=== PATIENT | male | born 1965 | race Caucasian/White ===

== ENCOUNTER 2021-06-21 15:30 | Outpatient (CLI) | payer OTHER, SELFPAY ==
--- NOTE | ~2021-06-21 | US_ITS ---
EXAMINATION: US carotid duplex BI DATE: 06/21/2021 15:57 INDICATION: Dizziness and giddiness. TECHNIQUE: Grayscale, color Doppler, and pulsed Doppler images of the cervical carotid arteries were obtained. The degree of vessel stenosis is placed in one of the following categories: normal, <50%, 5 0-69%, >=70% but less than near-occlusion, near-occlusion, or total occlusion. Note that percent sten osis relative to normal distal artery lumen diameter is indirectly measured from velocity measurement s as described by Justice, et al. Radiology 2003; 229:340-346. COMPARISON: None. FINDINGS: RIGHT: The right common carotid artery (CCA) peak systolic velocity (PSV) is 55 cm/s. The right internal car otid artery (ICA) PSV is 46 cm/s. The right ICA end-diastolic velocity (EDV) is 16 cm/s. The right IC A/CCA PSV ratio is 0.8. Grayscale and color Doppler images yield an estimate of <50% diameter reducti on from plaque in the ICA. The external carotid artery (ECA) PSV is 94 cm/s. There is antegrade flow in the right vertebral artery. LEFT: The left CCA PSV is 71 cm/s. The left ICA PSV is 54 cm/s. The left ICA EDV is 20 cm/s. The left ICA/C CA PSV ratio is 0.8. Grayscale and color Doppler images yield an estimate of <50% diameter reduction from plaque in the ICA. The ECA PSV is 78 cm/s. There is antegrade flow in the left vertebral artery. IMPRESSION: 1. <50% stenosis in the right internal carotid artery. 2. <50% stenosis in the left internal carotid artery. Reviewed, dictated and finalized at location . PUMP INSTALLER
== END 2021-06-21 15:31 | disposition home or self-care (01) ==
LOC: ANHIMG 15:35
PROVIDERS: PCP Internal Medicine; Visit Provider Family Medicine
DX: I65.23 Occlusion and stenosis of bilateral carotid arteries (principal)
CPT/HCPCS: 93880

== ENCOUNTER 2021-10-01 08:41 | Outpatient (CLI) | payer OTHER, SELFPAY ==
--- NOTE | ~2021-10-01 | CT_ITS ---
EXAMINATION:CT lung screening DATE: 10/01/2021 08:59 INDICATION: Tobacco use. Current smoker with 40 pack year history. TECHNIQUE: Computed tomography (CT) of the chest was performed without intravenous contrast. Automate d exposure control and iterative reconstruction technique were employed. The dose-length product (DLP ) was 250.19 mGy-cm. COMPARISON: None. FINDINGS: There is mild emphysema. There is mild scarring at the lung apices. There is a 2 mm nodule in right middle lobe. Calcified right lung nodules are consistent with old granulomatous disease. No pleural effusion. The heart size is normal. There are coronary artery calcifications. No pericardial effusion. There is an intramuscular lipoma in the right rotator cuff. There are changes of cholecyste ctomy. There is diffuse hepatic steatosis. There is mild thoracic spondylosis. There is mild chronic height loss of multiple vertebral bodies. IMPRESSION: 1. Lung-RADS category 2: Benign appearance or behavior. Continue annual screening with noncontrast lo w-dose chest CT in 12 months. Reviewed, dictated and finalized at location A. IMPRESSION: 1. Lung-RADS category 2: Benign appearance or behavior. Continue annual screeni ng with noncontrast low-dose chest CT in 12 months.
== END 2021-10-01 08:42 | disposition home or self-care (01) ==
PROVIDERS: PCP Family Medicine; Visit Provider Family Medicine
DX: Z12.2 Encounter for screening for malignant neoplasm of respiratory organs (principal); Z87.891 Personal history of nicotine dependence
CPT/HCPCS: 71271

== ENCOUNTER 2022-12-29 12:31 | Outpatient (CLI) | payer OTHER, SELFPAY ==
[2022-12-29 19:36] LABS: Basophils Absolute Auto 0.1 K/mm3 (0.0-0.1); Basophils Percent Auto 0.8 % (0.2-1.2); Eosinophils Absolute Auto 0.1 K/mm3 (0-0.3); Eosinophils Percent Auto 1.1 % (0-4.4); Hematocrit 52.3 % (42.0-52.0); Hemoglobin 17.9 g/dL (14.0-18.0); Immature Granulocyte Absolute 0.04 K/mm3 (0.00-0.031); Immature Granulocyte Percent A 0.4 % (0-0.5); Lymphocytes Absolute Auto 2.63 K/mm3 (0.9-3.2); Lymphocytes Percent Auto 25.9 % (18.3-44.2); Mean Corpuscular HGB Conc 34.2 g/dl (32-36); Mean Corpuscular Hemoglobin 31.1 pg (26-34); Mean Corpuscular Volume 90.8 fl (80-100); Mean Platelet Volume 10.2 fl (7.4-10.4); Monocytes Absolute Auto 0.8 K/mm3 (0.1-0.6); Monocytes Percent Auto 7.7 % (2.6-8.5); Neutrophils Absolute Auto 6.5 K/mm3 (1.3-6.7); Neutrophils Percent Auto 64.1 % (45.5-73.1); Platelet Count Result 177 k/mm3 (150-375); Red Blood Count 5.76 M/mm3 (4.6-6.20); Red Cell Distribution Width 13.3 % (11.5-14.5); White Blood Count 10.1 K/mm3 (4.5-10.0)
[2022-12-29 19:37] LABS: Alanine Aminotransferase 48 U/L (6-50); Albumin Level 4.2 g/dL (3.5-5.1); Alkaline Phosphatase 65 U/L (38-126); Anion Gap 5 mmol/L (8-16); Aspartate Amino Transferase 47 U/L (17-59); Bilirubin,Total 0.5 mg/dL (0.2-1.3); Blood Urea Nitrogen 16 mg/dL (9-20); Calcium 9.1 mg/dL (8.4-10.2); Carbon Dioxide 27 mmol/L (22-30); Chloride 104 mmol/L (98-107); Estimated Glomerular Filt Rate > 60; Glucose 93 mg/dL (65-110); Magnesium 2.1 mg/dL (1.6-2.3); Potassium 4.5 mmol/L (3.4-5.0); Sodium 136 mmol/L (137-145)
== END 2022-12-29 12:32 | disposition home or self-care (01) ==
LOC: ANHGOSHLAB 12:32
PROVIDERS: PCP Family Medicine; Visit Provider Family Medicine
DX: Z13.228 Encounter for screening for other metabolic disorders (principal); R53.83 Other fatigue; R25.2 Cramp and spasm
CPT/HCPCS: 36415; 80053; 83735; 85025

== ENCOUNTER → 2023-08-02 15:37 | Outpatient (CLI) | payer OTHER, SELFPAY ==
--- NOTE | ~2023-08-02 | XR_ITS ---
EXAMINATION: XR chest 2V DATE: 08/02/2023 15:52 INDICATION: Bronchitis, nonproductive cough. TECHNIQUE: Frontal and lateral views of the chest were obtained. COMPARISON: Chest CT 10/01/2021 FINDINGS: There is no pneumonia, pleural effusion, or pneumothorax. The heart size is normal. IMPRESSION: 1. No acute cardiopulmonary disease. Reviewed, dictated and finalized at location E. ALT STILL OPERATOR
== END ==
PROVIDERS: PCP Nurse Practitioner Family; Visit Provider Nurse Practitioner Family
DX: J40 Bronchitis, not specified as acute or chronic (principal)
CPT/HCPCS: 71046

== ENCOUNTER 2023-09-01 14:37 | Outpatient (CLI) | payer OTHER, SELFPAY ==
--- NOTE | ~2023-09-01 | XR_ITS ---
EXAMINATION: XR shoulder LT min 2V DATE: 09/01/2023 14:49 INDICATION: Left shoulder pain. TECHNIQUE: 4 views of left shoulder were obtained. COMPARISON: None. FINDINGS: Bone alignment is normal. No fracture. There is mild osteoarthritis of glenohumeral joint a nd moderate osteoarthritis of acromioclavicular joint. IMPRESSION: 1. Polyarticular osteoarthritis. Reviewed, dictated and finalized at location E. RED VEHICLE OFFICER
== END 2023-09-01 14:38 ==
PROVIDERS: PCP Family Medicine; Visit Provider Family Medicine
DX: M19.012 Primary osteoarthritis, left shoulder (principal)
CPT/HCPCS: 73030

== ENCOUNTER 2023-10-04 08:00 | Outpatient (CLI) | payer OTHER, SELFPAY ==
[2023-10-04 13:04] LABS: Basophils Absolute Auto 0.1 K/mm3 (0.0-0.1); Basophils Percent Auto 0.7 % (0.2-1.2); Eosinophils Absolute Auto 0.2 K/mm3 (0-0.3); Hematocrit 55.2 % (42.0-52.0); Hemoglobin 18.1 g/dL (14.0-18.0); Immature Granulocyte Absolute 0.05 K/mm3 (0.00-0.031); Immature Granulocyte Percent A 0.6 % (0-0.5); Lymphocytes Absolute Auto 2.09 K/mm3 (0.9-3.2); Lymphocytes Percent Auto 25.2 % (18.3-44.2); Mean Corpuscular HGB Conc 32.8 g/dl (32-36); Mean Corpuscular Hemoglobin 30.5 pg (26-34); Mean Corpuscular Volume 92.9 fl (80-100); Mean Platelet Volume 9.9 fl (7.4-10.4); Monocytes Absolute Auto 0.6 K/mm3 (0.1-0.6); Monocytes Percent Auto 7.1 % (2.6-8.5); Neutrophils Absolute Auto 5.3 K/mm3 (1.3-6.7); Neutrophils Percent Auto 64.4 % (45.5-73.1); Platelet Count Result 221 k/mm3 (150-375); Red Blood Count 5.94 M/mm3 (4.6-6.20); Red Cell Distribution Width 12.7 % (11.5-14.5); White Blood Count 8.3 K/mm3 (4.5-10.0)
[2023-10-04 13:14] LABS: Alanine Aminotransferase 59 U/L (6-50); Albumin Level 4.1 g/dL (3.5-5.1); Alkaline Phosphatase 90 U/L (38-126); Anion Gap 4 mmol/L (4-12); Aspartate Amino Transferase 53 U/L (17-59); Bilirubin,Total 0.5 mg/dL (0.2-1.3); Blood Urea Nitrogen 17 mg/dL (9-20); Calcium 9.1 mg/dL (8.4-10.2); Carbon Dioxide 28 mmol/L (22-30); Chloride 104 mmol/L (98-107); Estimated Glomerular Filt Rate > 60; Glucose 154 mg/dL (65-110); Sodium 136 mmol/L (137-145)
[2023-10-05 12:34] LABS: Creatinine, Random Urine 84 mg/dL (20-320); Total Protein/Creatinine Ratio 238 mg/g creat (25-148)
[2023-10-06 09:59] LABS: Albumin 3.9 g/dL (3.8-4.8); Alpha 1 Globulin 0.3 g/dL (0.2-0.3); Alpha 2 Globulin 0.7 g/dL (0.5-0.9); Beta 1 Globulin 0.5 g/dL (0.4-0.6); Gamma Globulin 1.2 g/dL (0.8-1.7)
== END 2023-10-04 08:01 | disposition home or self-care (01) ==
LOC: ANHGOSHLAB 08:03
PROVIDERS: PCP Family Medicine; Visit Provider Family Medicine
DX: C40.02 Malignant neoplasm of scapula and long bones of left upper limb (principal); Z13.228 Encounter for screening for other metabolic disorders; R53.83 Other fatigue
CPT/HCPCS: 36415; 80053; 82570; 84155; 84156; 84165; 84166; 85025

== ENCOUNTER 2025-06-17 20:51 | Observation (INO) | payer OTHER, SELFPAY ==
--- OUTSIDE RECORDS SUMMARY | 2025-06-16 15:00 | XMS_ITS | Encounter Summary ---
Author Organization [facility] Healthcare Address [address] [place] [address] Care Team Providers Care Supervisor Hanging And Trimming Name Role Phone Jeramie Matamoros MD Primary Care Provider [phone] Salomon Orosco MD Unavailable Sea Ocmapo MD Unavailable Reason for Visit * Reason Comments Palliative Care Follow-up Encounter Details Date Type Department Care Team (Late st Contact Info) Description 06/16/2025 3:00 PM CULLET TRUCKER Telemedicine [facility] Outpatient Health - Palliative Care [address] [facility] [place] [address] Ness Florentino MD [address] [place] [address] Palliative care encounter (Primary Dx); Metastatic non-small cell lung cancer (HCC); Primary cancer of left upper lobe of lung (HCC); Cancer associated pain; Opioid-induced constipation; High risk medication use; Anxiety Social History Tobacco Use Types Packs/Day Years Used Date Smoking Tobacco: Every Day Cigarettes 2 43 Started: 1982 Passive Smoke Exposure: Past Smokeless Tobacco: Never Alcohol Use Standard Drinks/Week Comments Never 0 (1 standard drink = 0.6 oz pur e alcohol) PHQ-2 Answer Date Recorded PHQ-2 Total Score 0 06/13/2025 PHQ-9 Answer Date Recorded PHQ-9 Total Score 9 03/14/2024 Social Connection and Isolation Panel Answer Date Recorded In a typical week, how many times do you talk on the phone with family, friends, or neighbors? More than three times a week 06/13/2025 How often do you get togethe r with friends or relatives? More than three times a week 06/13/2025 How often do you attend chur ch or hinduism services? Never 06/13/2025 Do you belong to any clubs o r organizations such as hindu groups, unions, fraternal or athletic groups, or school groups? No 06/13/2025 How often do you attend meet ings of the clubs or organizations you belong to? Never 06/13/2025 Are you , , di vorced, , never , or living with a partner? 06/13/2025 AUDIT-C Answer Date Recorded Q1: How often do you have a drink containing alcohol? Never 05/21/2025 Q2: How many drinks containi ng alcohol do you have on a typical day when you are drinking? Patient does not drink Q3: How often do you have si x or more drinks on one occasion? Never 05/21/2025 Overall Financial Resource Strain (CARDIA) Answe r Date Recorded How hard is it for you to pa y for the very basics like food, housing, medical care, and heating? Not hard at all 06/13/2025 Hunger Vital Sign Answer Date Recorded Within the past 12 months, y ou worried that your food would run out before you got the money to buy more. Never true 06/13/20 25 Within the past 12 months, t he food you bought just didn't last and you didn't have money to get more. Never true 06/13/2025 PRAPARE - Transportation Answer Date Re corded In the past 12 months, has l ack of transportation kept you from medical appointments or from getting medications? No 05/26 In the past 12 months, has l ack of transportation kept you from meetings, work, or from getting things needed for daily living? No 06/13/2025 Housing Stability Vital Sign Answer Nick e Recorded In the last 12 months, was t here a time when you were not able to pay the mortgage or rent on time? No 06/13/2025 In the past 12 months, how m any times have you moved where you were living? 0 06/13/2025 At any time in the past 12 m [facility], were you homeless or living in a correction (including now)? No 06/13/2025 [facility] Utilities Answer Date Recorded In the past 12 months has [employer], gas, oil, or water [employer] threatened to shut off services in your home? No 06/13/2025 Personal Safety Answer Date Recorded Have you ever been in or are you currently in a harmful physical or emotional relationship or is someone making you feel afraid or unsafe? Denies 06/11/2025 Sex and Gender Information Value Date Recorded Sex Assigned at Not on file Legal Sex Male 8:01 AM CULLET TRUCKER Gender Identity Male 11/15/2023 6:35 PM CDT Sexual Orientation Straight 11/15/2023 6: 35 PM CDT documented as of this encounter Progress Notes * Ness Florentino MD - 06/16/2025 3:00 PM CST Palliative Medicine Follow Up Consultation Referred by: Dr. Ocampo Demetrio Dior is a 59 y.o. male with metastatic squamous cell carcinoma of the lung Referred for evaluation and management of symptoms related to advanced illness and to assist with complex decision-making related to advanced disease Primary Focus this visit: follow up Interval documentation, labs and imaging reviewed Admitted again for delirium, following trial infusion, patient hypotensive, hypoxic and possible hallucinations. Monitored for high risk CRS, s/p 1 dose decadron 10mg with improvement. Dot and Mauro report that these symptoms did not start after the increase in MSER (which was made on 06/03) but occurred in conjunction with his chemo administration only. This has resolved. They did see the wound care team while admitted. Symptom Assessment #Cancer related pain: pain continues, about the same with the MSER increase as it was previously. -pain descriptor: pain is mainly in the left arm/left shoulder all the way to the elbow, pain is sharp/dull/burning with signs of hyperalgesia and allodynia. Additionally pain worsens with movement and improves with rest in his recliner. Dressing changes are particularly painful. -current regimen: MSER 60 mg TID (increased 06/03), oxycodone 30mg-45mg PO Q4H PRN (he does get benefit from this for some period of time- typically a short number of hours when he is resting/not as effective when he is moving around- takes consistently q4h during the day and occasionally 1 dose overnight. He mainly relies on 30mg but when pain is severe sometimes needs the extra 15mg dose), pregabalin 200mg PO BID, robaxin 500 TID -adjunctive treatments: left stellate ganglion nerve block 02/2025, XRT, surgical excision. The nerve block did lead to temporary relief for a couple of days but then the pain returned to it's previous level. Per his report, he is considering an amputation when he meets with Dr. Everett. He thinks that this could potentially relieve some of the burden from his sister about wound care/pain control. He worries about the impact this will have on him functionally. Unclear that this would even be an option with his medical complexity. -previously trialed regimens: none -relevant imaging: see below -opioid related side effects: controlled constipation (see below) #OIC: On movantik 25mg PO daily plus2 senna daily plus miralax nightly. Monday was last BM however he attributes some of this to being in the hospital. No abd cramping, +flatus. #Nighttime anxiety: some distress is happening at night when his sister leaves. He started xanax 0.25mg nightly which has overall been helpful. He is fine during the day. Overall he and his sister feel this is working reasonably well without overt side effects. Relevant Symptom Medications: Narcan Rx: no VEGETABLE GRADER reviewed: yes with refills Functional Assessment PPS: 60% ADL: independent with ADLs, needs assistance with IADLs Onc history: Diagnosed in August 2023 after imaging showed a prox humerus lesion and biopsy showed squamous cell carcinoma 10/2023: underwent operative fixation of the left prox humerus with Ortho followed by postop radiation 11/2023: began carboplatin plus nab-paclitaxel followed by maintenance pembro 09/2024: underwent Radiograph of the left shoulder on 09/25/23 showed a proximal humerus lesion. CT ofthe left shoulder on 10/02/23 showed a 4.6 X 3.1 cm lytic lesion in the proximal humerus. 10/2024: PODin the left prox humerus lesion and he underwent surgical excision and curettage of the left upper arm lesion followed by post operative radiation to the left humerus (2,000 cGy) 11/2024: POD to the brain and underwent SBRT 12/2024: began clinical trial due to POD 02/2025: POD, clinical trial 05/2025: POD, new clinical trial Social History: SOAPP score: 4 He is an active smoker (previously 2-2.5 packs per day), now smokes 1 PPD No regular ETOH use (last drink 4 beers 2 months ago) There were no vitals taken for this visit. Wt Readings from Last 5 Encounters: 06/12/25 77 kg (169 lb 12.1 oz) 06/11/25 77.6 kg (171 lb 1.2 oz) 06/11/25 77.7 kg (171 lb 4.8 oz) 06/10/25 79.4 kg (175 lb) 06/03/25 79.6 kg (175 lb 8 oz) Exam (limited due to telemedicine) Gen: NAD, sitting in a chair HEENT: sclera anicteric, MMM, conjunctiva non-injected, wearing nasal cannula Chest: non-labored respirations Neuro: awake, alert, follows commands and answers questions PSYCH: appropriate mood and congruent affect Relevant Data/Imaging (personally reviewed): Cr: 0.6, CrCl 153 LFTs: Alb 2.4 QTc: 460 (05/2025) Imaging: CT CHAP 05/2025: . Similar metastatic disease in the chest involving a large infiltrative mass at the left lung hilum obstructing the left mainstem bronchus with collapse of the left lung, as well asmultifocal pleural nodules with large malignant effusion, mediastinal and left axillary lymphadenopathy, and erosive right first rib mass.2. Interval worsened metastatic disease in the abdomen/pelviswith enlarging intraperitoneal nodules and similar bilateral renal metastatic lesions and retroperitoneal lymphadenopathy. 3. Possible left lower lobe pneumonia. CT Humerus 04/2025: 1. Postsurgical changes of tumor resection and internal fixation in the left proximal humerus. Possible ill-defined soft tissue surrounding the proximal humerus is difficult to evaluate given extensive streak artifact. 2. Probable interval increase in size and extension to the posterior skin surface of a left deltoid mass. 3. Unchanged left axillary lymphadenopathy. CT Chest 04/2025: 1. Trace volume of gas anterior to the mediastinum on the left. This could relateto trace loculated left-sided pleural air following thoracentesis, or less likely trace pneumomediastinum. 2. Similar extensive metastatic disease with osseous metastasis involving the right first rib, thoracic and upper abdominal metastatic lymph nodes, moderate to large volume left-sided malignant pleural effusion with pleural nodularity as well as peritoneal/omental nodularity and splenic metastasis. 3. Left lung collapse appears stable compared to the immediate prior but progressed since 04/28/2025. 4. Likely postobstructive pneumonia in the left lower lobe and sequelae of aspiration in the right lower lobe with tiny tree-in-bud nodularity. CTPE 04/2025: . No evidence of acute pulmonary embolism. 2. Increasing postobstructive left lung consolidation concerning for postobstructive pneumonia as well as increased now moderate size left pleural effusion. 3. No significant interval change in extent of distant metastatic disease. CT humerus 03/2025: 1. Probable slight interval increase in size of a left deltoid mass which extends to the level of the skin. 2. Stable postsurgical changes of the left proximal humerus. There is possible ill-defined soft tissue surrounding the proximal humerus which may be increased from the prior examination, though precise evaluation is difficult due to extensive streak artifact. 3. Unchanged left axillary lymphadenopathy. CT CHAP 03/2025: 1. Increased size and conspicuity of bilateral left greater than right hypodense renal lesions and left perinephric nodules, which likely represent metastatic disease. Pyelonephritisconsidered to be less likely given interdevelopment enlargement from 03/14/2025. 2. Ill-defined leftinfrahilar mass with mass effect on the left mainstem bronchus and left lower lobe collapse with postobstructive consolidative change. Tree in bud nodularity seen in left upper lobe, new, and may be infectious or inflammatory. Unchanged appearance of small left pleural effusion. 3. Unchanged appearance of mediastinal, left axillary, left supraclavicular, left subpectoral lymphadenopathy. CT CHAP 02/2025: 1. Enlarging ill-defined hypoattenuating left infrahilar mass with increasing mass effect on the left main bronchus and persistent collapse of the left lower lobe. Persistent postobstructive consolidation. Slightly decreased small left pleural effusion. 2. Increased left axillary and mediastinal lymphadenopathy 3. New and more conspicuous hypoenhancing left renal lesions and perinephric nodules suspicious for metastatic disease. While pyelonephritis may appear similarly, it is considered less likely given the adjacent perinephric nodules. 4. Unchanged right first rib lesion. CT Left Humerus 12/2024: 1. Interval increase in size of soft tissue deposits/collections involving the left deltoid and triceps musculature which track inferiorly into the more superficial soft tissues of the left lateral arm and in one region, the skin surface. Additionally, there has been interval increase in subcutaneous edema with associated skin thickening. Findings may represent disease progression and/or superimposed infection. 2. Overall stable osseous erosion/cortical bone loss of the humerus. 3. Slight interval increase in left axillary adenopathy. Impression/Summary: 59 y.o. 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 Recommendations: # Metastatic squamous cell adenocarcinoma: -Active, empathic listening, validation, open ended questioning, normalization, and selective reflections used during visit -goals remain treatment focused, he is on a new clinical trial # Palliative Care Assessment: Palliative Care Domains Evaluated Today: symptom assessment, psychosocial assessment, functional assessment Palliative Performance Scale: see above Functional Assessment: see above Disease extent: advanced without reversibility Disease-directed treatment options: palliative disease directed therapy Patient/family understanding of Illness: Fair Patient/family coping assessment: Appropriate # Caregiver Assessment: No needs identified. # Cognitive Assessment: No significant cognitive impairment identified. Decisional Capacity: intact # Advance Care Planning: - POA: his sister Dot - See ACP note embedded in HPI from 04/02/2025 and 05/26/2025 - Code status: DNR/DNI, POLST has been sent # Cancer related pain: 2/2 underlying malignancy with both osseous and muscular involvement, see above for relevant imaging. Much of the worst of his pain is incident in nature and is complex with mixed components. Additionally, dressing changes have led to need for more manipulation increasing pain. -he did not notice any significant benefit with increasing MSER so will keep at 60mg PO TID. We discussed potential short acting rotation from oxycodone to hydromorphone today: he and his sister are hesitant. Worried about pain worsening or a less efficacious regimen. Addressed their concerns in detail about how we could address this if it occurs. Also addressed Mauro's concerns about developing tolerance to opioids in the future and how that would be addressed. For now, they did not want to makeany changes so he will continue oxycodone 30mg-45mg PO Q4H PRN -of note, we considered methadone in the past but with prior arrhythmia potential and clinical trial progression we have put this on hold for now -continue adjuvant pain medications of robaxin and lyrica at current dosing -pain agreement previously discussed -he was counseled about possible side effects of opioids and about the risk of concomitant use of other CASH SURRENDER CALCULATOR depressants -Counseled about naloxone and Rx provided -labs, including CrCl and LFTs and imaging, reviewed today for treatment decisions # OIC: active, not controlled currently. Discussed increasing senna to 2 tabs PO BID (with escalation up to 4 tabs PO BID) and continue movantik 25mg daily plus miralax 17grams daily.. Goal is 1 softBM every day to every day- his sister will notify us if he does not have success with BMs. # Nighttime anxiety: explored above. Currently managed with xanax 0.25mg nightly PRN. For now, thisis working and they do not feel anything further needs to be adjusted. Would have a low threshold to convert to a longer acting benzodiazepine if control worsens. Separate benzos from opioids for at least 1 hour Follow up: 2 weeks For this established patient visit on 06/16/25, total encounter time was 52 minutes. This includes time spent in the activities documented in the note, prior to the visit and after the visit in direct care of the patient. This time does not include time spent in any separately reportable services. This was a telemedicine visit with Demetrio Dior and his sister which took place via Real-time video connection ([employer], Zoom or similar). During the visit, I was located at home and the patient was located at home in the state [facility]. The patient visit started at 15:08 PM and ended at 15:47 PM. The patient: has been informed that the visit may not be secure and acknowledged the information. The option of participating in a telephone or video visit during the COVID-19 public health emergencywas explained to them. After being given an opportunity to ask questions about and discuss this type of visit, they verbally consented to proceeding with the telephone/video visit and understand thatthis service replaces an office visit. Highly complex due to advanced disease and complex medication adjustment needs. Requires regular visits for ongoing symptom assessment and medication adjustment. Ness Florentino MD Palliative Medicine ET TRUCKER documented in this encounter Plan of Treatment Scheduled Procedures Name Priority Associated Diagnoses Date/Ti me ESOPHAGOGASTRODUODENOSCOPY Open Access Gastric pain documented as of this encounter Visit Diagnoses Diagnosis Palliative care encounter- Primary Metastatic non-small cell lung cancer (HCC) Primary cancer of left upper lobe of lung (HCC) Cancer associated pain Neoplasm related pain (acute) (chronic) Opioid-induced constipation High risk medication use Anxiety Anxiety state, unspecified documented in this encounter Care Teams Supervisor Hanging And Trimming Relationship Specialty Start Date End Date Jeramie Matamoros MD [address] [place] [address] PCP - General Family Medicine 02/15/24 Salomon Orosco MD [address] [place] [address] Radiation Oncologist Radiation Oncology 11/20/24 Sea Ocampo MD [address] [place] [address] Medical Oncologist/Train Gate Attendant Medical Oncology 11/20/24 documented as of this encounter
[2025-06-17] VITALS (9 sets, daily range): BP systolic 70–111; BP diastolic 46–78; PULSE 87–92; RESP 16–26; TEMP 36.8–36.9; O2SAT 83–99
--- NOTE | ~2025-06-17 | XR_ITS ---
XR chest 1V 06/17/2025 21:50 Indication: Weakness Procedure: AP view of the chest Comparison: 08/02/2023 Findings: Right IJ central line tip in the SVC. There is mediastinal shift to the left. There is complete opacification of the left hemithorax. Right lung clear. No acute osseous abnormality. Impression: 1: Complete opacification left hemithorax. Differential diagnosis includes massive pleural effusion, hemothorax, chylothorax, total lung atelectasis secondary to endobronchial obstruction or extrinsic bronchial compression, extensive pneumonia/consolidation, postpneumonectomy state if there is appropri ate clinical history, and large thoracic mass. Reviewed, dictated and finalized at location O. LRY SALES ASSOCIATE Impression: 1: Complete opacification left hemithorax. Differential diagnosis includes mass cam pleural effusion, hemothorax, chylothorax, total lung atelectasis secondary to endobronchial obstruction or extrinsic bronchial compression, extensive pne umonia/consolidation, postpneumonectomy state if there is appropriate clinical history, and large thoracic mass.
--- NOTE | ~2025-06-17 | CT_ITS ---
EXAMINATION: CT brain wo con DATE: 06/17/2025 21:58 INDICATION: Altered mental status TECHNIQUE: Computed tomography (CT) of the head was performed without intravenous contrast. The dose-length product was 605.33 mGy-cm. Automated exposure control and iterative reconstruction technique were employed. COMPARISON: None FINDINGS: There is a densely calcified likely extra-axial mass along the left frontal region measuring approximately 2.5 x 1.3 cm. No associated vasogenic edema or significant mass effect is identified. There is CSF density extra-axial lesion in the anterior aspect of the right middle cranial fossa, most likely an arachnoid cyst. Mild mass effect on the adjacent temporal lobe. No acute intracranial hemorrhage, acute infarction or mass effect. No midline shift. No ventriculomegaly or midline shift. No depressed skull fractures. Paranasal sinuses and mastoids are pneumatized. IMPRESSION: 1. 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 Differential diagnosis includes calcified dural based lesion such as dural metastases and hemangiopericytoma. Recommend correlation with MRI with contrast for further assessment. 2: Probable arachnoid cyst right middle cranial fossa anteriorly. Mild mass effect on the temporal lobe. 3: No acute intracranial abnormality. Reviewed, dictated and finalized at location O. MAKER IMPRESSION: 1. 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 Differential diagnosis includes calcified dural based le asia such as dural metastases and hemangiopericytoma. Recommend correlation wit h MRI with contrast for further assessment. 2: Probable arachnoid cyst right middle cranial fossa anteriorly. Mild mass eff ect on the temporal lobe. 3: No acute intracranial abnormality.
--- NOTE | 2025-06-17 21:14 | ECG_ITS ---
Test Date: 2025-06-17 21:27:01 Measurements Intervals [place] Rate: 85 P: 74 SC: 139 QRS: 82 QRSD: 114 T: -31 QT: 356 QTc: 425 Interpretive Statements SINUS RHYTHM INCOMPLETE RIGHT BUNDLE BRANCH BLOCK NONSPECIFIC ST & T-WAVE ABNORMALITY- ANT/INF LEADS BASELINE ARTIFACT- I, II, III, AVR, AVL, AVF, V2 BORDERLINE ECG No previous ECG available for comparison Electronically Signed On 06-18-2025 06:53:14 MUSIC ARRANGER by Jaspal Olsen D.O.
[2025-06-17 21:43] LABS: Hematocrit 47.3 % (42.0-52.0); Hemoglobin 14.1 g/dL (14.0-18.0); Immature Granulocyte Percent A 0.6 % (0-0.5); Lymphocytes Absolute Auto 1.83 K/mm3 (0.9-3.2); Mean Corpuscular HGB Conc 29.8 g/dl (32-36); Mean Corpuscular Hemoglobin 23.5 pg (26-34); Mean Corpuscular Volume 78.7 fl (80-100); Nucleated Red Blood Cells Absolute Auto 0.000 K/mm3 (0.0-0.012); Nucleated Red Blood Cells Perc 0.0 % (0.0-0.2); Platelet Count Result 334 k/mm3 (150-375); Red Blood Count 6.01 M/mm3 (4.6-6.20); White Blood Count 15.0 K/mm3 (4.5-10.0)
[2025-06-17 21:55] LABS: Alanine Aminotransferase 13 U/L (6-50); Albumin Level 2.9 g/dL (3.5-5.1); Alkaline Phosphatase 90 U/L (38-126); Anion Gap 2 mmol/L (4-12); Aspartate Amino Transferase 20 U/L (17-59); Bilirubin,Total 0.6 mg/dL (0.2-1.3); Blood Urea Nitrogen 16 mg/dL (9-20); Calcium 11.8 mg/dL (8.4-10.2); Carbon Dioxide 32 mmol/L (22-30); Chloride 94 mmol/L (98-107); Estimated CRCL calculation 87 ml/min; Estimated Glomerular Filt Rate > 60; Glucose 105 mg/dL (65-110); Potassium 4.7 mmol/L (3.4-5.0); Sodium 128 mmol/L (137-145); Total Protein 6.5 g/dL (6.3-8.2)
[2025-06-17 22:01] LABS: Magnesium 2.1 mg/dL (1.6-2.3)
[2025-06-17] MEDS: SODIUM CHLORIDE 0.9% IV 1,000 ML 999 ML IV CONT ×2 (22:04→23:35)
[2025-06-17 22:21] LABS: Procalcitonin 0.1 ng/mL
--- OUTSIDE RECORDS SUMMARY | 2025-06-17 22:22 | XMS_ITS | Clinical Summary ---
Author Organization [facility] Address [address] [place] [address] Care Team Providers Care News Technical Director Name Role Phone Christophe Smalls MD Primary Care Provider [phone] Source Comments [facility],non-owned Affiliates and Associated Physician Practices is amultiple site organization consisting of ambulatory clinics and hospital sitesin [place], [place], [place] and [place]. This disclosure is being madepursuant to the Care Everywhere program and may not contain all information available regarding this patient. Last updated 18.[facility] Allergies No known active allergies Medications * Be aware that medications may not be up to date on this document. Alwaysverify current medications with the patient. Medication Sig Dispense Quantity Refills Last Filled Start D ate End Date Status IBUPROFEN PO Active Active Problems No known active problems Social History Tobacco Use Types Packs/Day Years Used Date Smoking Tobacco: Every Day Cigarettes Smokeless Tobacco: Never Alcohol Use Standard Drinks/Week Comments Yes 0 (1 standard drink = 0.6 oz pur e alcohol) AUDIT-C Answer Date Recorded Frequency of Alcohol Consumption 2-3 times a wee k 05/06/2019 Average Number of Drinks Not on file 019 Frequency of Binge Drinking Not on file 04/26 Sex and Gender Information Value Date Recorded Sex Assigned at Not on file Legal Sex Male 9:12 AM CDT Gender Identity Not on file Sexual Orientation Not on file Last Filed Vital Signs Vital Sign Reading Time Taken Comments Blood Pressure - - Pulse - - Temperature - - Respiratory Rate - - Oxygen Saturation - - Inhaled Oxygen Concentration - - Weight 98.7 kg (217 lb 9.6 oz) 05/06/2019 8:57 A M J2EE JAVA DEVELOPER Height - - Body Mass Index - - Plan of Treatment Health Maintenance Due Date Last Done Comments COLOGUARD (AGES 45-75) - COL ON CA SCREENING 1964 COLON MONITORING 1964 COLONOSCOPY - COLON CA SCREENING 1964 CT COLONOGRAPHY - COLON CA SCREENING 1964 Colorectal Cancer Screening 1964 FIT - COLON CA SCREENING 1964 FLEX SIG - COLON CA SCREENING 1964 LIPID TESTING 1964 HIV SCREENING 1979 HEPATITIS C SCREENING 08/13/1982 DTAP/TDAP/TD VACCINES (1 - Tdap) 1983 PNEUMOCOCCAL VACCINE 50+ (1 of 1 - PCV) 2014 ZOSTER VACCINE (1 of 2) 2014 DEPRESSION SCREENING 06/26/2024 COVID-19 VACCINE (1 - 2024-2 6 season) 2025 INFLUENZA VACCINE (#1) 2025 Respiratory Syncytial Virus (RSV) Vaccine Pt: or over 60 yrs (1 - 1-dose 75+ series) 2039 HEPATITIS B VACCINE Aged Out No longe r eligible based on patient's age to complete this topic HIB VACCINE Aged Out No longer eligi ble based on patient's age to complete this topic HPV VACCINE Aged Out No longer eligi ble based on patient's age to complete this topic MENINGOCOCCAL (Group B) VACC INE SHARED DECISION-MAKING Aged Out No longer eligibl e based on patient's age to complete this topic MENINGOCOCCAL GROUPS A/C/Y/W VACCINE Aged Out No longer eligible b ased on patient's age to complete this topic [place] [address] [address] [place] [address] [facility] Care Teams News Technical Director Relationship Specialty Start Date End Date Christophe Smalls MD [address] [place] [address] PCP - General 04/23/19
--- OUTSIDE RECORDS SUMMARY | 2025-06-17 22:22 | XMS_ITS | Encounter Summary ---
Author Organization [facility] Address [address] [place] [address] Phone Care Team Providers Care Ammonia Operator Name Role Phone Jovani Jin DO Primary Care Provider [phone] Jeramie Matamoros MD Primary Care Provider [phone] Regine Valdez RN Unavailable Salomon Orosco MD Unavailable Sea Ocampo MD Unavailable [phone] Encounter Details Date Type Department Care Team (Latest Contact Info) Description 10/18/2023 Orders Only [facility] ONCOLOGY Scanning, Provider Social History Tobacco Use Types Packs/Day Years Used Date Smoking Tobacco: Every Day Cigarettes 1.3 40 AUDIT-C Answer Date Recorded Q1: How often do you have a drink containing alc ohol? Monthly or less 10/19/2023 Q2: How many drinks containi ng alcohol do you have on a typical day when you are drinking? 1 or 2 10/19/2023 Q3: How often do you have si x or more drinks on one occasion? Never 10/19/2023 Personal Safety Answer Date Recorded Have you ever been in or are you currently in a harmful physical or emotional relationship or is someone making you feel afraid or unsafe? Denies 10/18/2023 Sex and Gender Information Value Date Recorded Sex Assigned at Not on file Legal Sex Male 8:01 AM COMMODITY MANAGER Gender Identity Male 11/15/2023 6:35 PM CDT Sexual Orientation Straight 11/15/2023 6: 35 PM CDT documented as of this encounter Plan of Treatment Scheduled Procedures Name Priority Associated Diagnoses Date/Ti me ESOPHAGOGASTRODUODENOSCOPY Open Access Gastric pain documented as of this encounter Procedures Procedure Name Priority Date/Time Associated Diagnosis Comments SCAN - PATHOLOGY 10/18/2023 documented in this encounter Results * SCAN - PATHOLOGY (10/18/2023) us Provider Scanning Final Result documented in this encounter Visit Diagnoses Not on filedocumented in this encounter Additional Health Concerns Infection Onset Date Last Indicated Resolved Time COVID: Suspected 01/14/2025 01/14/2025 01/14/2025 10:46 AM CDT COVID: Suspected 04/28/2025 04/28/2025 04/28/2025 10:43 AM COMMODITY MANAGER Ring Surveillance: C. auris 05/01/2025 05/01/2025 05/08/2025 7:26 PM COMMODITY MANAGER Ring Surveillance: C. auris 05/13/2025 05/13/2025 05/20/2025 7:26 PM COMMODITY MANAGER COVID: Suspected 06/11/2025 06/11/2025 06/12/2025 12:33 AM COMMODITY MANAGER documented as of this encounter Care Teams Ammonia Operator Relationship Specialty Start Date End Date Jovani Jin DO [facility] [place], [place] [id number] PCP - General Family Medicine 10/04/23 02/14/24 Jeramie Matamoros MD [address] [place] [address] PCP - General Family Medicine 02/15/24 Regine Valdez, DR[address] [place] [address] Nurse Navigator 11/20/24 12/31/24 Salomon Orosco MD [address] [place] [address] Radiation Oncologist Radiation Oncology 11/20/24 Sea Ocampo MD [address] [place] [address] Medical Oncologist/Making Machine Catcher Medical Oncology 11/20/24 documented as of this encounter
--- OUTSIDE RECORDS SUMMARY | 2025-06-17 22:22 | XMS_ITS | Clinical Summary ---
Author Organization [facility] Address [address] [place] [address] Care Team Providers Care Vapor Coater Name Role Phone Jovani Jin Primary Care Provider [phone] Medications HYDROcodone-terry taminophen (NORCO) 5-325 mg tabletIndicatio ns:Lesion of bone of left shoulder Take 1 Tablet by mouth every 8 hours as needed for Pain, Moderate. Max Daily Amount: 3 Tablets 30 Tablet 10/02/19 24 Active oxyCODONE (ROXICODONE) 5 mg tablet Take 1-2 tablets (5-10 mg total) by mouth every 4 (four) hours as needed for pain 120 Tablet 4 10:41 AM CDT 12/22/19 24 Active blood sugar diagnostic (Blood Glucose Test) Strip Use to test blood sugar 1-2 times daily. 100 Each 11 4 11:56 AM CDT 02/15/20 24 Active lancets 33 gauge Use to test blood sugar 1-2 times daily. 100 Each 11 4 11:56 AM CDT 02/15/20 24 Active Blood-Glucose Meter For home blood glucose measurement 1 Each 4 11:56 AM CDT 02/15/20 24 Active umeclidinium-vi lanteroL (ANORO ELLIPTA) 62.5-25 mcg/actuation Disk with Device INHALE 1 PUFF EVERY DAY. 60 Each 2 4 7:03 PM CDT 11/07/19 24 Active oxyCODONE (ROXICODONE) 5 mg tablet Take 1-2 tablets by mouth every 4 hours as needed for pain 120 Tablet 4 7:03 PM CDT 03/13/20 24 Active pravastatin (PRAVACHOL) 20 mg tablet Take 1 Tablet (20 mg) by mouth daily. 90 Tablet 1 5 10:07 AM PARKING METER ATTENDANT 01/29/20 24 Active amLODIPine (NORVASC) 5 mg tablet Take 1 Tablet (5 mg) by mouth daily. 90 Tablet 1 5 4:05 PM PARKING METER ATTENDANT 01/29/20 24 Active dexAMETHasone (DECADRON) 4 mg tablet Take 2 tablets by mouth on day 2. Then 2 tablets by mouth twice daily on days 3 and 4. 10 Tablet 3 11/28/19 24 Active prochlorperazin e maleate (COMPAZINE) 10 mg tablet Take 1 Tablet (10 mg) by mouth every 6 hours as needed for nausea or vomiting. Use first. 120 Tablet 3 11/28/19 24 Active nicotine polacrilex 4 mg Lozenge Dissolve 1 Lozenge (4 mg) in mouth every hour as needed. 72 Lozenge 1 11/07/19 24 Active ondansetron (ZOFRAN) 8 mg Tablet Take 1 Tablet (8 mg) by mouth every 8 hours as needed for naursa or vomiting. Use if prochlorperazine doesn't help. 24 Tablet 3 5 1:21 PM CDT 11/16/19 24 Active amLODIPine (NORVASC) 5 mg tablet Take 1 Tablet (5 mg) by mouth daily. 90 Tablet 1 5 10:07 AM PARKING METER ATTENDANT 12/30/19 24 Active empagliflozin (Jardiance) 10 mg tablet Take 1 Tablet (10 mg) by mouth daily. 30 Tablet 3 4 1:22 PM PARKING METER ATTENDANT 03/14/20 24 Active pregabalin (LYRICA) 100 mg Capsule Take 1 Capsule (100 mg) by mouth 2 times daily. 60 Capsule 2 5 10:07 AM PARKING METER ATTENDANT 06/17/20 24 Active aspirin (ECOTRIN EC) 81 mg Tablet, Delayed Release (E.C.) Take 1 tablet (81 mg total) by mouth 2 (two) times a day 60 Tablet 5 5:22 PM CDT 10/06/19 25 Active cephALEXin (KEFLEX) 500 mg capsule Take 1 capsule (500 mg total) by mouth 4 (four) times a day 70 Capsule 5 5:22 PM CDT 10/06/19 25 Active sennosides-docu sate sodium (SENNA-S) 8.6-50 mg tablet Take 2 tablets by mouth 2 (two) times a day 120 Tablet 5 5:22 PM CDT 10/06/19 25 Active nicotine polacrilex 4 mg Lozenge Dissolve 1 lozenge (4 mg total) in the mouth every hour as needed for smoking cessation 81 Lozenge 1 5 5:24 PM CDT 10/09/19 25 Active nicotine (NICODERM CQ) 21 mg/[address] 1 patch on the skin daily for 24 hours 28 Patch 1 5 5:24 PM CDT 10/09/19 25 Active nystatin (NYSTOP) 100,000 unit/gram powder Apply topically to affected area(s) 4 (four) times daily as directed. 15 Gram 1 11/29/19 25 Active dexAMETHasone (DECADRON) 4 mg tablet Take 1 Tablet (4 mg) by mouth 2 times daily. 14 Tablet 5 4:48 PM CDT 11/30/19 25 Active levETIRAcetam (KEPPRA) 500 mg tablet Take 1 Tablet (500 mg) by mouth 2 times daily. 60 Tablet 11 5 1:09 PM CDT 12/03/19 25 Active ondansetron (ZOFRAN) 8 mg Tablet Take 1 tablet (8 mg total) by mouth every 8 (eight) hours as needed for nausea or vomiting. 24 Tablet 3 5 6:44 PM CDT 12/24/19 25 Active doxycycline hyclate (VIBRAMYCIN) 100 mg capsule Take 1 capsule (100 mg total) by mouth 2 (two) times a day for 7 days 14 Capsule 5 12:55 PM CDT 02/19/20 25 Active gabapentin (NEURONTIN) 300 mg capsule Take 1 capsule (300 mg total) by mouth 2 (two) times a day 60 Capsule 1 5 1:09 PM CDT 02/26/20 25 Active albuterol sulfate 90 mcg/Actuation inhaler Inhale 2 puffs every 4 (four) hours as needed for wheezing or shortness of breath. 8.5 Gram 2 5 5:32 PM CDT 03/04/20 25 Active pantoprazole (PROTONIX) 40 mg Tablet, Delayed Release (E.C.) Take 1 tablet (40 mg total) by mouth daily 30 Tablet 1 03/04/20 25 Active lidocaine-prilo adele (EMLA) 2.5-2.5 % Cream Apply to port site one hour before each port access, cover with plastic wrap. 30 Gram 1 5 12:08 PM PARKING METER ATTENDANT 03/10/20 25 Active naloxone (NARCAN) 4 mg/spray [place], Non-Aerosol Administer 1 spray into affected nostril(s) as needed for opioid reversal or respiratory depression Call 911. Administer a single spray in one nostril. Repeat every 3 minutes as needed if no or minimal response. 2 Each 04/02/20 25 Active pantoprazole (PROTONIX) 40 mg Tablet, Delayed Release (E.C.) Take 1 Tablet (40 mg) by mouth daily. 30 Tablet 1 5 6:39 PM PARKING METER ATTENDANT 04/04/20 25 Active prochlorperazin e maleate (COMPAZINE) 10 mg tablet Take 1 tablet (10 mg total) by mouth 3 (three) times a day as needed for nausea 60 Tablet 5 4:41 PM CDT 04/04/20 25 Active oxyCODONE (ROXICODONE) 20 mg tablet Take 1-1.5 tablets (20-30 mg total) by mouth every 4 (four) hours as needed for pain. 126 Tablet 5 11:38 AM CDT 04/07/20 25 Active lidocaine (XYLOCAINE) 5 % Ointment Apply topically as needed for pain (Apply to left arm as needed for pain) Avoid contact with eyes. 30 Gram 5 5:51 PM CDT 04/08/20 25 Active oxyCODONE (ROXICODONE) 20 mg tablet Take 1-1.5 tablets (20-30 mg total) by mouth every 4 (four) hours as needed for pain . PLEASE NOTE CHANGE IN TABLET SIZE 126 Tablet 5 2:50 PM CDT 04/18/20 25 Active naloxegoL (Movantik) 12.5 mg Tablet Take 1 Tablet (12.5 mg) by mouth daily. 30 Tablet 1 5 9:33 AM PARKING METER ATTENDANT 04/22/20 25 Active morphine (MS CONTIN) 15 mg Controlled Release tablet Take 1 tablet (15 mg total) by mouth every 8 (eight) hours along with 30mg tablet for a total dose of 45mg for morning and evening doses. 90 Tablet 5 5:01 PM CDT 04/22/20 25 Active oxyCODONE (ROXICODONE) 10 mg tablet Take 3-4 tablets (30-40 mg total) by mouth every 4 (four) hours as needed for pain (cancer-related pain) in addition to 30mg tablet for severe pain. 168 Tablet 5 6:11 PM PARKING METER ATTENDANT 05/02/20 25 Active oxyCODONE (ROXICODONE) 30 mg tablet Take 1-1.5 tablets (30-45 mg total) by mouth every 4 (four) hours as needed for pain 168 Tablet 5 5:14 PM PARKING METER ATTENDANT 05/06/20 25 Active apixaban (Eliquis) 5 mg tablet Take 1 Tablet (5 mg) by mouth 2 times daily. 60 Tablet 5 5 4:20 PM PARKING METER ATTENDANT 05/06/20 25 Active empagliflozin (Jardiance) 10 mg tablet Take 1 Tablet (10 mg) by mouth daily. 90 Tablet 3 5 4:21 PM PARKING METER ATTENDANT 05/06/20 25 Active metoprolol succinate (TOPROL XL) 50 mg Extended Release 24 hour tablet Take 1 Tablet (50 mg) by mouth daily. 90 Tablet 1 05/06/20 25 Active nystatin (MYCOSTATIN) 100,000 unit/mL suspension Take 5 mL (500,000 Units total) by mouth 4 (four) times a day. Swish in mouth and swallow. 280 mL 5 12:08 PM PARKING METER ATTENDANT 05/08/20 25 Active losartan (COZAAR) 25 mg tablet Take 1 Tablet (25 mg) by mouth daily. 90 Tablet 3 5 6:39 PM PARKING METER ATTENDANT 05/16/20 25 Active metoprolol succinate (TOPROL XL) 50 mg Extended Release 24 hour tablet Take 1 Tablet (50 mg) by mouth 2 times daily. 180 Tablet 3 5 9:33 AM PARKING METER ATTENDANT 05/16/20 25 Active methocarbamoL (ROBAXIN) 500 mg tablet Take 1 Tablet (500 mg) by mouth 3 times daily. 90 Tablet 6:04 PM PARKING METER ATTENDANT 05/19/20 25 Active morphine (MS CONTIN) 30 mg Controlled Release tablet Take 1 Tablet (30 mg) by mouth 3 times daily. Max Daily Amount: 90 mg 90 Tablet 6:04 PM PARKING METER ATTENDANT 05/20/20 25 Active naloxegoL (Movantik) 25 mg Tablet Take 1 Tablet (25 mg) by mouth daily. 30 Tablet 1 4:20 PM PARKING METER ATTENDANT 05/26/20 25 Active oxyCODONE (ROXICODONE) 30 mg tablet Take 1-1.5 Tablets (30-45 mg) by mouth every 4 hours as needed. Max Daily Amount: 270 mg 168 Tablet 4:20 PM PARKING METER ATTENDANT 05/26/20 25 Active ALPRAZolam (XANAX) 0.5 mg tablet Take 1 tablet (0.5 mg total) by mouth nightly as needed for anxiety 30 Tablet 6:58 PM PARKING METER ATTENDANT 05/29/20 25 Active pregabalin (LYRICA) 200 mg Capsule Take 1 capsule (200 mg total) by mouth 2 (two) times a day 60 Capsule 1 4:21 PM PARKING METER ATTENDANT 06/02/20 25 Active morphine (MS CONTIN) 60 mg Controlled Release tablet Take 1 tablet (60 mg total) by mouth 3 (three) times a day 90 Tablet 4:21 PM PARKING METER ATTENDANT 06/03/20 25 Active ergocalciferol (VITAMIN D2) 50,000 unit capsule Take 1 capsule (50,000 Units total) by mouth once a week 4 Capsule 11 5 11:07 AM PARKING METER ATTENDANT 06/07/20 25 Active atorvastatin (LIPITOR) 20 mg tablet Take 1 Tablet (20 mg) by mouth daily. 31 Tablet 1 5 6:39 PM PARKING METER ATTENDANT 06/11/20 25 Active oxyCODONE (ROXICODONE) 30 mg tablet Take 1-1.5 tablets (30-45 mg total) by mouth every 4 (four) hours as needed for pain. 168 Tablet 5 6:39 PM PARKING METER ATTENDANT 06/13/20 25 Active ipratropium-alb uteroL (DUONEB) 0.5 mg-3 mg(2.5 mg base)/3 mL Solution for Nebulization Inhale 1 vial (3 mL) via nebulizer every 6 hours as needed. 180 mL 2 06/17/20 Active morphine (MS CONTIN) 30 mg Controlled Release tablet Take 1 tablet (30 mg total) by mouth every 8 (eight) hours 90 Tablet 5 4:47 PM CDT 03/24/20 25 025 Disconti nued(Reo rder) pregabalin (LYRICA) 200 mg Capsule Take 1 capsule (200 mg total) by mouth 2 (two) times a day 60 Capsule 1 5 2:37 PM CDT 03/24/20 25 025 Disconti nued(Reo rder) methocarbamoL (ROBAXIN) 500 mg tablet Take 1 tablet (500 mg total) by mouth 3 (three) times a day 90 Tablet 5 5:51 PM CDT 04/10/20 25 025 Disconti nued(Reo rder) Active Problems Problem Noted Date Diagnosed Date Lesion of bone of left shoulder 09/25/2023 Encounters Date Type Department Care Team Description 04/08/2025 External Device Data STL ABSTRACTION Provider, Abstract from Last 3 Months Social History Tobacco Use Types Packs/Day Years Used Date Smoking Tobacco: Never Assessed Sex and Gender Information Value Date Recorded Sex Assigned at Not on file Legal Sex Male 11:16 PM CDT Gender Identity Not on file Sexual Orientation Not on file Last Filed Vital Signs Vital Sign Reading Time Taken Comments Blood Pressure - - Pulse - - Temperature - - Respiratory Rate - - Oxygen Saturation - - Inhaled Oxygen Concentration - - Weight 106.1 kg (233 lb 12.8 oz) 10/11/2023 9:13 AM CDT Height 190.5 cm (6' 3) 10/11/2023 9:13 AM CDT Body Mass Index 29.22 10/11/2023 9:13 AM CDT Plan of Treatment Health Maintenance Due Date Last Done Comments DTAP/TDAP/TD VACCINES (1 - Tdap) 1983 COLORECTAL SCREENING 2009 Colorectal Cancer Screening 2009 FIT-DNA Q 3 years 2009 FIT/FOBT Q 1 year 2009 Flex Sig/CT Colonography Q 5 years 2009 RSV VACCINE (60+ or ) (1 - Risk 50-74 years 1-dose series) 2014 ZOSTER VACCINE (1 of 2) 2014 INFLUENZA VACCINE (#1) 2025 HEPATITIS B VACCINES Aged Out No long er eligible based on patient's age to complete this topic Insurance [employer] (INTERNAL) [facility] [employer] Care Teams Vapor Coater Relationship Specialty Start Date End Date Jovani Jin DO [address] [address] PCP - General Family Practice 09/25/23
--- OUTSIDE RECORDS SUMMARY | 2025-06-17 22:23 | XMS_ITS | Encounter Summary ---
Author Organization [facility] Address [address] [place] [address] Phone Care Team Providers Care Forestry Faculty Member Name Role Phone Jeramie Matamoros MD Primary Care Provider Salomon Orosco MD Unavailable Sea Ocampo MD Unavailable [phone] Encounter Details Date Type Department Care Team (Late st Contact Info) Description 06/17/2025 Telephone [facility] Medicine Oncology [address] [place] [address] Zahra Corley RN Social History Tobacco Use Types Packs/Day Years [...] often do you attend chur ch or yazidi services? Never 06/13/2025 Do you belong to any clubs o r organizations such as sikh groups, unions, fraternal or athletic groups, or [...] any time in the past 12 m [facility], were you homeless or living in a retirement (including now)? No 06/13/2025 [facility] Utilities Answer Date Recorded In the past 12 months has e electric, gas, oil, or water company threatened to shut off services in your home? No 06/13/2025 Personal Safety Answer Date Recorded Have you ever been in or are you currently in a harmful physical or emotional relationship or is someone making you feel afraid or unsafe? Denies 06/11/2025 Sex and Gender Information Value Date Recorded Sex Assigned at Not on file Legal Sex Male 8:01 AM ASSOCIATE PROFESSOR OF LIBRARY SCIENCE Gender Identity Male 11/15/2023 6:35 PM CDT Sexual Orientation Straight 11/15/2023 6: 35 PM CDT documented as of this encounter Miscellaneous Notes * Telephone Encounter - Zahra Corley RN - 06/17/2025 4:17 PM ASSOCIATE PROFESSOR OF LIBRARY SCIENCE Call from pt's sister stating that pt is losing coordination, recommended that he go to [facility], verbalized understanding. CIATE PROFESSOR OF LIBRARY SCIENCE documented in this encounter Plan of Treatment Scheduled Procedures Name Priority Associated Diagnoses Date/Ti me ESOPHAGOGASTRODUODENOSCOPY Open Access Gastric pain documented as of this encounter Visit Diagnoses Not on filedocumented in this encounter Care Teams Forestry Faculty Member Relationship Specialty Start Date End Date Jeramie Matamoros MD [address] [place] [address] PCP - General Family Medicine 02/15/24 Salomon Orosco MD [address] [place] [address] Radiation Oncologist Radiation Oncology 11/20/24 Sea Ocampo MD [address] [place] [address] Medical Oncologist/Air Analyst Medical Oncology 11/20/24 documented as of this encounter
--- OUTSIDE RECORDS SUMMARY | 2025-06-17 22:23 | XMS_ITS | Encounter Summary ---
Author Organization [facility] Address [address] [place] [address] Phone Care Team Providers Care Liquid Yeast Supervisor Name Role Phone Jeramie Matamoros MD Primary Care Provider [phone] Salomon Orosco MD Unavailable Sea Ocampo MD Unavailable Encounter Details Date Type Department Care Team (Late st Contact Info) Description 06/08/2025 Results Follow-Up [facility] Medicine Oncology [address] [facility] [address] [place] [address] Parisa Myers, [place] [address] [facility] [address] [place] [address] MRI Brain W WO Contrast Social History Tobacco Use Types Packs/Day Years Used Date Smoking Tobacco: Every Day Cigarettes 2 43 Started: 1982 Passive Smoke Exposure: Past Smokeless Tobacco: Never Alcohol Use Standard Drinks/Week Comments Never 0 (1 standard drink = 0.6 oz pur e alcohol) PHQ-2 Answer Date Recorded PHQ-2 Total Score 0 05/13/2025 PHQ-9 Answer Date Recorded PHQ-9 Total Score 9 03/14/2024 Social Connection and Isolation Panel Answer Date Recorded In a typical week, how many times do you talk on the phone with family, friends, or neighbors? More than three times a week 06/12/2025 How often do you get togethe r with friends or relatives? More than three times a week 06/12/2025 How often do you attend chur ch or yazidism services? Never 06/12/2025 Do you belong to any clubs o r organizations such as voodoo groups, unions, fraternal or athletic groups, or school groups? No 06/12/2025 How often do you attend meet ings of the clubs or organizations you belong to? Never 06/12/2025 Are you , , di vorced, , never , or living with a partner? 06/12/2025 AUDIT-C Answer Date Recorded Q1: How often [...] care, and heating? Not hard at all 06/12/2025 Hunger Vital Sign Answer Date Recorded Within the past 12 months, y ou worried that your food would run out before you got the money to buy more. Never true 06/12/20 25 Within the past 12 months, t he food you bought just didn't last and you didn't have money to get more. Never true 06/12/2025 PRAPARE - Transportation Answer Date Re corded In the past 12 months, has l ack of transportation kept you from medical appointments or from getting medications? No 05/26 In the past 12 months, has l ack of transportation kept you from meetings, work, or from getting things needed for daily living? No 06/12/2025 Housing Stability Vital Sign Answer Nick e Recorded In the last 12 months, was t here a time when you were not able to pay the mortgage or rent on time? No 06/12/2025 In the past 12 months, how m any times have you moved where you were living? 0 06/12/2025 At any time in the past 12 m [facility], were you homeless or living in a fpc (including now)? No 06/12/2025 [facility] Utilities Answer Date Recorded In the past 12 months has e electric, gas, oil, or water company threatened to shut off services in your home? No 05/13/2025 Personal Safety Answer Date Recorded Have you ever been in or are you currently in a harmful physical or emotional relationship or is someone making you feel afraid or unsafe? Denies 06/11/2025 Sex and Gender Information Value Date Recorded Sex Assigned at Not on file Legal Sex Male 8:01 AM STEM CRUSHER Gender Identity Male 11/15/2023 6:35 PM CDT Sexual Orientation Straight 11/15/2023 6: 35 PM CDT documented as of this encounter Plan of Treatment Scheduled Procedures Name Priority Associated Diagnoses Date/Ti me ESOPHAGOGASTRODUODENOSCOPY Open Access Gastric pain documented as of this encounter Visit Diagnoses Not on filedocumented in this encounter Additional Health Concerns Infection Onset Date Last Indicated Resolved Time COVID: Suspected 06/11/2025 06/11/2025 06/12/2025 12:33 AM STEM CRUSHER documented as of this encounter Care Teams Liquid Yeast Supervisor Relationship Specialty Start Date End Date Jeramie Matamoros MD [address] [place] [address] PCP - General Family Medicine 02/15/24 Salomon Orosco MD [address] [place] [address] Radiation Oncologist Radiation Oncology 11/20/24 Sea Ocampo MD [address] [place] [address] Medical Oncologist/Seed Cone Picker Medical Oncology 11/20/24 documented as of this encounter
--- OUTSIDE RECORDS SUMMARY | 2025-06-17 22:23 | XMS_ITS | Encounter Summary ---
Author Organization [facility] Address [address] [place] [address] Phone Care Team Providers Care Yard General Car Supervisor Name Role Phone Jovani Jin DO Primary Care Provider [phone] Jeramie Matamoros MD Primary Care Provider [phone] Regine Valdez RN Unavailable Salomon Orosco MD Unavailable Sea Ocampo MD Unavailable [phone] Encounter Details Date Type Department Care Team (Latest Contact Info) Description 10/24/2023 Orders Only [facility] IM ONCOLOGY Scanning, Provider Social History Tobacco Use Types Packs/Day Years Used Date Smoking Tobacco: Every Day Cigarettes 1.3 40 Passive Smoke Exposure: Never Smokeless Tobacco: Never AUDIT-C Answer Date Recorded Q1: How often do you have a drink containing alc ohol? Monthly or less 10/24/2023 Q2: How many drinks containi ng alcohol do you have on a typical day when you are drinking? 1 or 2 10/24/2023 Q3: How often do you have si x or more drinks on one occasion? Never 10/24/2023 Personal Safety Answer Date Recorded Have you ever been in or are you currently in a harmful physical or emotional relationship or is someone making you feel afraid or unsafe? Denies 10/26/2023 Sex and Gender Information Value Date Recorded Sex Assigned at Not on file Legal Sex Male 8:01 AM SPINNER HAND Gender Identity Male 11/15/2023 6:35 PM CDT Sexual Orientation Straight 11/15/2023 6: 35 PM CDT documented as of this encounter Plan of Treatment Scheduled Procedures Name Priority Associated Diagnoses Date/Ti me ESOPHAGOGASTRODUODENOSCOPY Open Access Gastric pain documented as of this encounter Procedures Procedure Name Priority Date/Time Associated Diagnosis Comments SCAN - PATHOLOGY 10/24/2023 documented in this encounter Results * SCAN - PATHOLOGY (10/24/2023) us Provider Scanning Final Result documented in this encounter Visit Diagnoses Not on filedocumented in this encounter Additional Health Concerns Infection Onset Date Last Indicated Resolved Time COVID: Suspected 01/14/2025 01/14/2025 01/14/2025 10:46 AM CDT COVID: Suspected 04/28/2025 04/28/2025 04/28/2025 10:43 AM SPINNER HAND Ring Surveillance: C. auris 05/01/2025 05/01/2025 05/08/2025 7:26 PM SPINNER HAND Ring Surveillance: C. auris 05/13/2025 05/13/2025 05/20/2025 7:26 PM SPINNER HAND COVID: Suspected 06/11/2025 06/11/2025 06/12/2025 12:33 AM SPINNER HAND documented as of this encounter Care Teams Yard General Car Supervisor Relationship Specialty Start Date End Date Jovani Jin DO [address] [place] [address] [address] [place] [address] PCP - General Family Medicine 10/04/23 02/14/24 Jeramie Matamoros MD [address] [place] [address] PCP - General Family Medicine 02/15/24 Regine Valdez, DR[address] [place] [address] Nurse Navigator 11/20/24 12/31/24 Salomon Orosco MD [address] [place] [address] Radiation Oncologist Radiation Oncology 11/20/24 Sea Ocampo MD [address] [place] [address] Medical Oncologist/Fitness And Wellness Manager Medical Oncology 11/20/24 documented as of this encounter
--- OUTSIDE RECORDS SUMMARY | 2025-06-17 22:23 | XMS_ITS | Clinical Summary ---
Author Organization [facility] Address [address] [place] [id number] Care Team Providers Care Clinical Cytogeneticist Scientist Name Role Phone Jeramie Matamoros MD Primary Care Provider Salomon Orosco MD Unavailable eSa Ocampo MD Unavailable [phone] Allergies Active Allergy Reactions Criticality Noted Date Comments Fosaprepitant Shortness of breath, Flushing (skin),Headache High 11/28/2023 Medications blood glucose diagnostic (glucose blood) strip For 1-2 times daily blood glucose measurement 100 each 024 Active lancets 33 gauge misc For 1-2 daily blood glucose measurement at home 100 each 024 Active blood-glucose meter (OneTouch Ultra2 Meter) misc For home blood glucose measurement 1 each 024 Active guaiFENesin ER (MUCINEX) 600 mg 12 hr tablet Take 1 tablet (600 mg total) by mouth 2 (two) times a day Active nicotine (NICODERM CQ) [address] 1 patch on the skin daily for 24 hours 28 patch 1 025 Active Additional Information Patient taking differently:1 patch transdermal Every 24 hours,Uses prn, used one two weeks ago, Reported on 06/12/2025 ondansetron (ZOFRAN) 8 mg tabletIndications :Primary cancer of left upper lobe of lung (HCC) Take 1 tablet (8 mg total) by mouth every 8 (eight) hours as needed for nausea or vomiting 24 tablet 3 Active albuterol HFA (PROVENTIL HFA,VENTOLIN HFA,PROAIR HFA) 90 mcg/actuation inhalerIndication s:Primary cancer of left upper lobe of lung (HCC) Inhale 2 puffs every 4 (four) hours as needed for wheezing or shortness of breath FOR WHEEZING OR SHORTNESS OF BREATH. 1 each 2 Active lidocaine-priloca ine cream Apply to port site one hour before each port access, cover with plastic wrap. 30 g 1 Active naloxone (NARCAN) 4 mg/actuation spray,non-aerosol Administer 1 spray into affected nostril(s) as needed for opioid reversal or respiratory depression Call 911. Administer a single spray in one nostril. Repeat every 3 minutes as needed if no or minimal response. 2 each Active Additional Information Patient not taking.Reported on 06/16/[address] (PROTONIX) 40 mg EC tablet Take 1 tablet (40 mg total) by mouth daily 30 tablet 1 Active prochlorperazine (COMPAZINE) 10 mg tablet Take 1 tablet (10 mg total) by mouth 3 (three) times a day as needed for nausea 60 tablet Active aspirin 81 mg enteric coated tablet Take 1 tablet (81 mg total) by mouth daily Active nicotine polacrilex (COMMIT) 4 mg lozenge Dissolve 1 lozenge (4 mg total) in the mouth as needed for smoking cessation Active empagliflozin (Jardiance) 10 mg tablet Take 1 tablet (10 mg total) by mouth daily 90 tablet 3 Active apixaban (ELIQUIS) 5 mg tabletIndications :atrial fibrillation Take 1 tablet (5 mg total) by mouth every 12 (twelve) hours 60 tablet 5 Active metoprolol XL (TOPROL-XL) 50 mg extended release tablet Take 1 tablet (50 mg total) by mouth 2 (two) times a day 180 tablet 3 025 2025 Active losartan (COZAAR) 25 mg tablet Take 1 tablet (25 mg total) by mouth daily 90 tablet 3 2025 Active methocarbamoL (ROBAXIN) 500 mg tablet Take 1 tablet (500 mg total) by mouth 3 (three) times a day 90 tablet Active naloxegoL (MOVANTIK) 25 mg tablet Take 1 tablet (25 mg total) by mouth daily 30 tablet 1 Active senna (SENOKOT) 8.6 mg tablet Take 2 tablets by mouth daily 2025 Active ALPRAZolam (XANAX) 0.5 mg tablet Take 1 tablet (0.5 mg total) by mouth nightly as needed for anxiety 30 tablet 2025 Active pregabalin (LYRICA) 200 mg capsuleIndication s:Primary cancer of left upper lobe of lung (HCC),Metastasis to bone Take 1 capsule (200 mg total) by mouth 2 (two) times a day 60 capsule 1 Active morphine ER (MS CONTIN) 60 mg 12 hr tablet Take 1 tablet (60 mg total) by mouth 3 (three) times a day 90 tablet Active ergocalciferol (VITAMIN D) 50,000 unit capsuleIndication s:Vitamin D deficiency Take 1 capsule (50,000 Units total) by mouth once a week 4 capsule 11 2025 Active atorvastatin (LIPITOR) 20 mg tablet Take 1 tablet (20 mg total) by mouth daily 31 tablet 1 Active polyethylene glycol (MIRALAX) 17 gram/dose bulk powder Take 17 g by mouth daily as needed (constipation) Active acetaminophen 325 mg tablet Take 2 tablets (650 mg total) by mouth every 6 (six) hours as needed for fever Active oxyCODONE (ROXICODONE) 30 mg immediate release tabletIndications :Cancer associated pain,Palliative care encounter Take 1-1.5 tablets (30-45 mg total) by mouth every 4 (four) hours as needed for pain 168 tablet Active ipratropium-albut Patrick (DUO-NEB) 0.5-2.5 mg/3 mL nebulizer solution Take 3 mL by nebulization every 6 (six) hours as needed for wheezing 180 mL 2 Active budesonide-glycop yr-formoterol (Breztri Aerosphere) 160-9-4.8 mcg/actuation inhalerIndication s:Simple chronic bronchitis (HCC) Inhale 2 puffs 2 (two) times a day 10.8 g 3 2024 Discontinued( Therapy completed) pregabalin (LYRICA) 200 mg capsuleIndication s:Primary cancer of left upper lobe of lung (HCC),Metastasis to bone Take 1 capsule (200 mg total) by mouth 2 (two) times a day 60 capsule 1 2024 Discontinued [facility] brimonidine 0.2 % (/XB01 0-101) 0.2 % ophthalmic solution Administer 3 drops into affected eye(s) as directed Instill 3 drops into each eye immediately prior to each XB-010 infusion as instructed by the study team. 2024 Discontinued( Therapy completed) [facility] fluorometholone (/XB01 0-101) 0.1 % drops ophthalmic suspension Administer 1 drop into affected eye(s) as directed Administer no greater than 90 minutes and no less than 30 minutes prior to the start of XB010. Administer 1 drop in each eye twice a day. Administer the first drop in each eye 1 hour prior to each XB010 infusion. Continue administration twice daily for a total of 3 days (including the day of infusion). 2024 Discontinued( Therapy completed) [facility] Refresh Classic Lubricant Eye Drops (/XB01 0-101) drops ophthalmic solution Administer 1 drop into affected eye(s) every 3 (three) hours Instill one drop into each eye 8 times daily, starting the day of the first infusion and continuing daily throughout treatment, and for 30 days after the last infusion. 2024 Discontinued( Therapy completed) lidocaine (XYLOCAINE) 5 % ointmentIndicatio ns:Primary cancer of left upper lobe of lung (HCC),Malignant neoplasm metastatic to bone (HCC),Metastasis to bone,Pain Apply topically as needed for pain (Apply to left arm as needed for pain) Avoid contact with eyes. 35 g 2024 Discontinued( Therapy completed) methocarbamoL (ROBAXIN) 500 mg tablet Take 1 tablet (500 mg total) by mouth 3 (three) times a day 90 tablet 2024 Discontinued( Reorder) naloxegoL (MOVANTIK) 12.5 mg tablet Take 1 tablet (12.5 mg total) by mouth daily 30 tablet 1 2024 Discontinued acetaminophen (TYLENOL) 500 mg tablet Take 2 tablets (1,000 mg total) by mouth every 6 (six) hours 2024 Discontinued( Stop Taking at Discharge) atorvastatin (LIPITOR) 20 mg tablet Take 1 tablet (20 mg total) by mouth daily 2024 Discontinued( Reorder) morphine ER (MS CONTIN) 15 mg 12 hr tablet Take 1 tablet (15 mg total) by mouth every 8 (eight) hours Take 15 mg and 30 mg (45 mg total) every 8 hours 2024 Discontinued cefdinir (OMNICEF) 300 mg capsuleIndication s:Pneumonia, Aspiration Take 1 capsule (300 mg total) by mouth 2 (two) times a day for 7 days 14 capsule 2024 Discontinued( Stop Taking at Discharge) metroNIDAZOLE (FLAGYL) 500 mg tabletIndications :post obstructive pneumonia Take 1 tablet (500 mg total) by mouth 2 (two) times a day for 7 days 14 tablet 2024 Discontinued( Stop Taking at Discharge) oxyCODONE (ROXICODONE) 30 mg immediate release tabletIndications :Cancer associated pain,Palliative care encounter Take 1-1.5 tablets (30-45 mg total) by mouth every 4 (four) hours as needed for pain 168 tablet 2024 Discontinued( Reorder) morphine ER (MS CONTIN) 30 mg 12 hr tablet Take 1 tablet (30 mg total) by mouth 3 (three) times a day 2024 Discontinued nystatin 100,000 unit/mL suspension Take 5 mL (500,000 Units total) by mouth 4 (four) times a day Swish in mouth and swallow. 280 mL 2024 Discontinued( Stop Taking at Discharge) morphine ER (MS CONTIN) 30 mg 12 hr tablet Take 1 tablet (30 mg total) by mouth 3 (three) times a day 90 tablet 2024 Discontinued morphine ER (MS CONTIN) 60 mg 12 hr tablet Take 1 tablet (60 mg total) by mouth 3 (three) times a day 2024 Discontinued( Reorder) polyethylene glycol (MIRALAX) 17 gram/dose bulk powder Take 17 g by mouth daily 2024 Discontinued oxyCODONE (ROXICODONE) 30 mg immediate release tabletIndications :Cancer associated pain,Palliative care encounter Take 1-1.5 tablets (30-45 mg total) by mouth every 4 (four) hours as needed for pain 168 tablet 2024 Discontinued( Reorder) Active Problems Problem Noted Date Diagnosed Date Hypotension, unspecified hypotension type 2024 Assessment & Plan (06/12/2025 4:36 AM INDUSTRIAL HYGIENE ENGINEER): Following trial infusion, patient hypotensive, hypoxic and possible hallucinations. Remained alert and oriented. Underwent infectious workup. Considered sepsis vs CRS -Per Oncology, on presentation not definitively grade 2 CRS -Consider sepsis occult infection vs CRS/ICANS -More Confusion upon admission 06/12 ICE score 8 -- Given dexamethasone 10mg given concern for neurotoxicity. Plan: -Empiric Vanc/Cefe (06/11-*) + Azithro -F/u Blood Cx -If patient becomes hypotensive, febrile or progesses to concern for Grade 3 CRS; involve Onc and consider tocilizumab -Limit centrally active medications for now -Hold antihypertensives -Small bolus 06/12 for dry mucus membranes Acute hypoxic respiratory failure 06/12/2025 Assessment & Plan (06/12/2025 4:36 AM INDUSTRIAL HYGIENE ENGINEER): Hypoxic following infusion, typically on 1.5L NC. Has left pleurex and follows with IP. CT PE 06/11: No PE. L Lung metastatic disease, obstructive lung collapse, Large left pleural effusion, possible underlying L lung PNA. -DDx: PNA vs worsening obstruction/pleural effusion most likely Plan: -Abx as otherwise noted -O2 to maintain Sat >92% -Consider additional pleural effusion drainage -Cont Inhalers + Duoneb + Mucinex AMS (altered mental status) 06/12/2025 Assessment & Plan (06/13/2025 2:46 PM INDUSTRIAL HYGIENE ENGINEER): Resolved. Following trial infusion, patient hypotensive, hypoxic and possible hallucinations. Monitored for high risk CRS, s/p 1 dose decadron 10mg with improvement. Possible cytokine release syndrome vs delirium. Assessment & Plan (06/12/2025 4:36 AM INDUSTRIAL HYGIENE ENGINEER): Following trial infusion, patient hypotensive, hypoxic and possible hallucinations. Remained alert and oriented. Underwent infectious workup. Considered sepsis vs CRS -Per Oncology, on presentation not definitively grade 2 CRS -Consider sepsis occult infection vs CRS/ICANS -More Confusion upon admission 06/12 ICE score 8 -- Given dexamethasone 10mg given concern for neurotoxicity. Plan: -Empiric Vanc/Cefe (06/11-*) + Azithro -F/u Blood Cx -If patient becomes hypotensive, febrile or progesses to concern for Grade 3 CRS; involve Onc and consider tocilizumab -Limit centrally active medications for now -Hold antihypertensives -Small bolus 06/12 for dry mucus membranes Hypercalcemia 06/12/2025 Assessment & Plan (06/13/2025 2:46 PM INDUSTRIAL HYGIENE ENGINEER): Mild. Ca 11, likely malignancy vs dehydration. -Monitor on BMP -Judicious with fluids given HFmrEF Assessment & Plan (06/12/2025 4:36 AM INDUSTRIAL HYGIENE ENGINEER): Mild. Ca 11, likely malignancy vs dehydration. -Monitor on BMP -Judicious with fluids given HFmrEF Elevated troponin 06/12/2025 Assessment & Plan (06/12/2025 4:36 AM INDUSTRIAL HYGIENE ENGINEER): 140s>130s. Low concern for ACS, more likely stress related -Monitor for CP COPD (chronic obstructive pulmonary disease) Assessment & Plan (06/13/2025 2:46 PM INDUSTRIAL HYGIENE ENGINEER): Home 1.5L NC -Cont Inhalers + Duoneb + Mucinex Assessment & Plan (06/12/2025 4:36 AM INDUSTRIAL HYGIENE ENGINEER): Hypoxic following infusion, typically on 1.5L NC. Has left pleurex and follows with IP. CT PE 06/11: No PE. L Lung metastatic disease, obstructive lung collapse, Large left pleural effusion, possible underlying L lung PNA. -DDx: PNA vs worsening obstruction/pleural effusion most likely Plan: -Abx as otherwise noted -O2 to maintain Sat >92% -Consider additional pleural effusion drainage -Cont Inhalers + Duoneb + Mucinex A-fib 06/12/2025 Assessment & Plan (06/13/2025 2:46 PM INDUSTRIAL HYGIENE ENGINEER): Paroxysmal, In NSR on admission. - eliquis, metop management per HF Assessment & Plan (06/12/2025 4:36 AM INDUSTRIAL HYGIENE ENGINEER): In NSR on admission -Cont apixiban -Holding metop Malignant pleural effusion 05/13/2025 Assessment & Plan (06/13/2025 2:46 PM INDUSTRIAL HYGIENE ENGINEER): S/p L pleurX with drainage. Patient notes his sister is comfortable doing procedure. IP made aware, do not think there is anything they would do at this time. - CT-PE (06/12): no acute PE, similar dz, including L hilum (obstructive L lung collapse), pleur X, mediastinal + L axillary LN, erosive R 1st rib, b/l renal, L adrenal, peritoneal soft tissue. Cannot exclude superimposed pneumonia but appears similar to prior. Assessment & Plan (06/12/2025 4:36 AM INDUSTRIAL HYGIENE ENGINEER): Hypoxic following infusion, typically on 1.5L NC. Has left pleurex and follows with IP. CT PE 06/11: No PE. L Lung metastatic disease, obstructive lung collapse, Large left pleural effusion, possible underlying L lung PNA. -DDx: PNA vs worsening obstruction/pleural effusion most likely Plan: -Abx as otherwise noted -O2 to maintain Sat >92% -Consider additional pleural effusion drainage -Cont Inhalers + Duoneb + Mucinex Assessment & Plan (05/16/2025 11:51 AM INDUSTRIAL HYGIENE ENGINEER): Presented with [id number] shortness of breath and increased oxygen requirement. Admitted 04/28-05/01 for similar presentation, was on broad spectrum abx and was continued on abx discharge. 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 CT here showed evidence of worsening post-obstructive pneumonia on the left side associated with left lung collapse in the setting of progressive disease, as evident from the CAT scan. There was no pulmonary embolism. The patient underwent thoracentesis in ED and was started on broad-spectrum antibiotics with vancomycin and cefepime. Blood cultures obtained without growth. ID and IP consulted, attempted repeat thoracentesis however unable to find adequate amount of fluid. Repeat CT chest 05/15 showed persistent L sided malignany effusion, persistent lung collapse, evidence of post-obstructive PNA, along with trace volume of gas anterior to mediastinum possibly trapped pleural air vs less likely trace pneumomediastinum. Findings discussed with ID and IP, plan for return as outpatient next week for Pleurex drain with IP, 5-7 days of cefepime IV for PNA. - continue cefepime 5-7 days per ID, day 5 05/16. - Incentive spirometer, CPT, pulmonary toilet, DuoNeb, and flutter valve - IP consulted, outpatient follow up Assessment & Plan (05/15/2025 6:39 PM INDUSTRIAL HYGIENE ENGINEER): Presented with [id number] shortness of breath and increased oxygen requirement. Admitted 04/28-05/01 for similar presentation, was on broad spectrum abx and was continued on abx discharge. 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 CT here showed evidence of worsening post-obstructive pneumonia on the left side associated with left lung collapse in the setting of progressive disease, as evident from the CAT scan. There was no pulmonary embolism. The patient underwent thoracentesis in ED and was started on broad-spectrum antibiotics with vancomycin and cefepime. ID and IP consulted, attempted repeat thoracentesis however unable to find adequate amount of fluid. Repeat CT chest 05/15 showed persistent L sided malignany effusion, persistent lung collapse, evidence of post-obstructive PNA, along with trace volume of gas anterior to mediastinum possibly trapped pleural air vs less likely trace pneumomediastinum. Findings discussed with ID and IP, plan for return as outpatient next week for Pleurex drain with IP, 5-7 days of cefepime IV for PNA. - continue cefepime 5-7 days per ID, day 5 05/16. - follow BCX - Incentive spirometer, CPT, pulmonary toilet, DuoNeb, and flutter valve - IP consulted, outpatient follow up Assessment & Plan (05/14/2025 4:50 PM INDUSTRIAL HYGIENE ENGINEER): Presented with [id number] shortness of breath and increased oxygen requirement. Admitted 04/28-05/01 for similar presentation, was on broad spectrum abx and was continued on abx discharge. 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 CT here showed evidence of worsening post-obstructive pneumonia on the left side associated with left lung collapse in the setting of progressive disease, as evident from the CAT scan. There was no pulmonary embolism. The patient underwent thoracentesis in ED and was started on broad-spectrum antibiotics with vancomycin and cefepime. ID and IP consulted - continue cefepime - sputum PCR if able - follow BCX - Incentive spirometer, CPT, pulmonary toilet, DuoNeb, and flutter valve - IP consulted, repeat CT chest WO Assessment & Plan (05/13/2025 5:39 PM INDUSTRIAL HYGIENE ENGINEER): Presented with [id number] shortness of breath and increased oxygen requirement. Admitted 04/28-05/01 for similar presentation, was on broad spectrum abx and was continued on abx discharge. 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 CT here showed evidence of worsening post-obstructive pneumonia on the left side associated with left lung collapse in the setting of progressive disease, as evident from the CAT scan. There was no pulmonary embolism. The patient was started on broad-spectrum antibiotics with vancomycin and cefepime. ID and IP consulted - continue cefepime, DC vanc - RVP, sputum PCR, MRSA PCR - follow BCX - Incentive spirometer, CPT, pulmonary toilet, DuoNeb, and flutter valve - IP consulted, planning thoracentesis, question of pleurex and endobronchial stent Pneumonia 05/13/2025 Assessment & Plan (05/16/2025 11:51 AM INDUSTRIAL HYGIENE ENGINEER): Presented with [id number] shortness of breath and increased oxygen requirement. Admitted 04/28-05/01 for similar presentation, was on broad spectrum abx and was continued on abx discharge. 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 CT here showed evidence of worsening post-obstructive pneumonia on the left side associated with left lung collapse in the setting of progressive disease, as evident from the CAT scan. There was no pulmonary embolism. The patient underwent thoracentesis in ED and was started on broad-spectrum antibiotics with vancomycin and cefepime. Blood cultures obtained without growth. ID and IP consulted, attempted repeat thoracentesis however unable to find adequate amount of fluid. Repeat CT chest 05/15 showed persistent L sided malignany effusion, persistent lung collapse, evidence of post-obstructive PNA, along with trace volume of gas anterior to mediastinum possibly trapped pleural air vs less likely trace pneumomediastinum. Findings discussed with ID and IP, plan for return as outpatient next week for Pleurex drain with IP, 5-7 days of cefepime IV for PNA. - continue cefepime 5-7 days per ID, day 5 05/16. - Incentive spirometer, CPT, pulmonary toilet, DuoNeb, and flutter valve - IP consulted, outpatient follow up Assessment & Plan (05/15/2025 6:39 PM INDUSTRIAL HYGIENE ENGINEER): Presented with [id number] shortness of breath and increased oxygen requirement. Admitted 04/28-05/01 for similar presentation, was on broad spectrum abx and was continued on abx discharge. 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 CT here showed evidence of worsening post-obstructive pneumonia on the left side associated with left lung collapse in the setting of progressive disease, as evident from the CAT scan. There was no pulmonary embolism. The patient underwent thoracentesis in ED and was started on broad-spectrum antibiotics with vancomycin and cefepime. ID and IP consulted, attempted repeat thoracentesis however unable to find adequate amount of fluid. Repeat CT chest 05/15 showed persistent L sided malignany effusion, persistent lung collapse, evidence of post-obstructive PNA, along with trace volume of gas anterior to mediastinum possibly trapped pleural air vs less likely trace pneumomediastinum. Findings discussed with ID and IP, plan for return as outpatient next week for Pleurex drain with IP, 5-7 days of cefepime IV for PNA. - continue cefepime 5-7 days per ID, day 5 05/16. - follow BCX - Incentive spirometer, CPT, pulmonary toilet, DuoNeb, and flutter valve - IP consulted, outpatient follow up Assessment & Plan (05/15/2025 4:41 PM INDUSTRIAL HYGIENE ENGINEER): The patient is a 59 y.o. 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 He has undergone several lines of systemic cancer chemotherapy, surgical excisions of the L humeral lesion in 10/2023 and 09/2024, radiation to the brain and the L humerus. He presented to the [facility] ED 05/12 with shortness of breath. He was found to be tachycardic and tachypneic. He was in Aflutter in R[facility]. CTA CAP 05/12 showed worsening mediastinal lymphadenopathy, adrenal gland mets, renal mets as well as complete occlusion of the L mainstem bronchus with L lung collapse. ID was consulted on 05/13 for antibiotic recommendations for pneumonia. Patient has continued on cefepime. MRSA nasal swab and RPP negative. Patient was seen by IP for left thoracentesis yesterday, but ultrasound indicated very minimal fluids. It ws recommended to obtain a CT chest. On assessment, patient reports he is breathing better since admitted, but comments on having multiple interventions outside of antibiotics that would improve his respiratory status. Denies fevers, chills, n/v/d, itching or rash. Reports he has a persistent productive cough at baseline. Discussed ID involvement in care. Planning on 5-7 days of antibiotics for pneumonia. CT scan read after seeing/assessing patient. Based on read/findings, recommend completing 5-7 days of cefepime for treatment of pneumonia. Recommendations: -Continue cefepime. -while on the IV antibiotics, please obtain at least a weekly cbc with diff and CMP for antibiotic toxicity monitoring -complete 5-7 days of treatment (end date 05/16 vs 05/18) -No outpatient ID follow up needed -Thank you for allowing us to participate in the care of this patient. For questions or concerns, please do not hesitate to reach out. ID signing off. Assessment & Plan (05/14/2025 4:50 PM INDUSTRIAL HYGIENE ENGINEER): Presented with [id number] shortness of breath and increased oxygen requirement. Admitted 04/28-05/01 for similar presentation, was on broad spectrum abx and was continued on abx discharge. 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 CT here showed evidence of worsening post-obstructive pneumonia on the left side associated with left lung collapse in the setting of progressive disease, as evident from the CAT scan. There was no pulmonary embolism. The patient underwent thoracentesis in ED and was started on broad-spectrum antibiotics with vancomycin and cefepime. ID and IP consulted - continue cefepime - sputum PCR if able - follow BCX - Incentive spirometer, CPT, pulmonary toilet, DuoNeb, and flutter valve - IP consulted, repeat CT chest WO Assessment & Plan (05/13/2025 5:39 PM INDUSTRIAL HYGIENE ENGINEER): Presented with [id number]-mf-jxdpsvo shortness of breath and increased oxygen requirement. Admitted 04/28-05/01 for similar presentation, was on broad spectrum abx and was continued on abx discharge. 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 CT here showed evidence of worsening post-obstructive pneumonia on the left side associated with left lung collapse in the setting of progressive disease, as evident from the CAT scan. There was no pulmonary embolism. The patient was started on broad-spectrum antibiotics with vancomycin and cefepime. ID and IP consulted - continue cefepime, DC vanc - RVP, sputum PCR, MRSA PCR - follow BCX - Incentive spirometer, CPT, pulmonary toilet, DuoNeb, and flutter valve - IP consulted, planning thoracentesis, question of pleurex and endobronchial stent Heart failure with mildly re duced ejection fraction (HFmrEF, 41-49%) 05/13/2025 Assessment & Plan (06/13/2025 2:46 PM INDUSTRIAL HYGIENE ENGINEER): TTE 04/2025: EF 43%, with RV dilation. RVSP 25. -Hold metoprolol, losartan, empagliflozin given hypotension on admission, resume at discharge. Assessment & Plan (06/12/2025 4:36 AM INDUSTRIAL HYGIENE ENGINEER): TTE 04/2025: EF 43%, with RV dilation. RVSP 25. -Hold metoprolol, losartan, empagliflozin given hypotension [employer] Assessment & Plan (05/16/2025 11:51 AM INDUSTRIAL HYGIENE ENGINEER): TTE 04/30/25 with EF 43%, RV dilation. Does not appear significantly volume overloaded - continue metop as above - start losartan 25mg, uptitrate as able - further GDMT outpatient, outpatient cardio-onc follow up. Assessment & Plan (05/15/2025 6:39 PM INDUSTRIAL HYGIENE ENGINEER): TTE 04/30/25 with EF 43%, RV dilation. Does not appear significantly volume overloaded - continue metop as above - start losartan 25mg, uptitrate as able - further GDMT outpatient, outpatient cardio-onc follow up. Assessment & Plan (05/14/2025 4:50 PM INDUSTRIAL HYGIENE ENGINEER): TTE 04/30/25 with EF 43%, RV dilation. Does not appear significantly volume overloaded - continue metop as above - start losartan, uptitrate as able - further GDMT outpatient, outpatient cardio-onc follow up. Assessment & Plan (05/13/2025 5:39 PM INDUSTRIAL HYGIENE ENGINEER): TTE 04/30/25 with EF 43%, RV dilation. Does not appear significantly volume overloaded - continue metop as above - start losartan, uptitrate as able - further GDMT outpatient, outpatient cardio-onc follow up. Collapse of left lung 05/12/2025 Assessment & Plan (05/16/2025 11:51 AM INDUSTRIAL HYGIENE ENGINEER): Presented with [id number] shortness of breath and increased oxygen requirement. Admitted 04/28-05/01 for similar presentation, was on broad spectrum abx and was continued on abx discharge. 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 CT here showed evidence of worsening post-obstructive pneumonia on the left side associated with left lung collapse in the setting of progressive disease, as evident from the CAT scan. There was no pulmonary embolism. The patient underwent thoracentesis in ED and was started on broad-spectrum antibiotics with vancomycin and cefepime. Blood cultures obtained without growth. ID and IP consulted, attempted repeat thoracentesis however unable to find adequate amount of fluid. Repeat CT chest 05/15 showed persistent L sided malignany effusion, persistent lung collapse, evidence of post-obstructive PNA, along with trace volume of gas anterior to mediastinum possibly trapped pleural air vs less likely trace pneumomediastinum. Findings discussed with ID and IP, plan for return as outpatient next week for Pleurex drain with IP, 5-7 days of cefepime IV for PNA. - continue cefepime 5-7 days per ID, day 5 05/16. - Incentive spirometer, CPT, pulmonary toilet, DuoNeb, and flutter valve - IP consulted, outpatient follow up Assessment & Plan (05/15/2025 6:39 PM INDUSTRIAL HYGIENE ENGINEER): Presented with [id number] shortness of breath and increased oxygen requirement. Admitted 04/28-05/01 for similar presentation, was on broad spectrum abx and was continued on abx discharge. 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 CT here showed evidence of worsening post-obstructive pneumonia on the left side associated with left lung collapse in the setting of progressive disease, as evident from the CAT scan. There was no pulmonary embolism. The patient underwent thoracentesis in ED and was started on broad-spectrum antibiotics with vancomycin and cefepime. ID and IP consulted, attempted repeat thoracentesis however unable to find adequate amount of fluid. Repeat CT chest 05/15 showed persistent L sided malignany effusion, persistent lung collapse, evidence of post-obstructive PNA, along with trace volume of gas anterior to mediastinum possibly trapped pleural air vs less likely trace pneumomediastinum. Findings discussed with ID and IP, plan for return as outpatient next week for Pleurex drain with IP, 5-7 days of cefepime IV for PNA. - continue cefepime 5-7 days per ID, day 5 05/16. - follow BCX - Incentive spirometer, CPT, pulmonary toilet, DuoNeb, and flutter valve - IP consulted, outpatient follow up Assessment & Plan (05/14/2025 4:50 PM INDUSTRIAL HYGIENE ENGINEER): Presented with [id number] shortness of breath and increased oxygen requirement. Admitted 04/28-05/01 for similar presentation, was on broad spectrum abx and was continued on abx discharge. 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 CT here showed evidence of worsening post-obstructive pneumonia on the left side associated with left lung collapse in the setting of progressive disease, as evident from the CAT scan. There was no pulmonary embolism. The patient underwent thoracentesis in ED and was started on broad-spectrum antibiotics with vancomycin and cefepime. ID and IP consulted - continue cefepime - sputum PCR if able - follow BCX - Incentive spirometer, CPT, pulmonary toilet, DuoNeb, and flutter valve - IP consulted, repeat CT chest WO Assessment & Plan (05/13/2025 5:39 PM INDUSTRIAL HYGIENE ENGINEER): Presented with [id number] shortness of breath and increased oxygen requirement. Admitted 04/28-05/01 for similar presentation, was on broad spectrum abx and was continued on abx discharge. 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 CT here showed evidence of worsening post-obstructive pneumonia on the left side associated with left lung collapse in the setting of progressive disease, as evident from the CAT scan. There was no pulmonary embolism. The patient was started on broad-spectrum antibiotics with vancomycin and cefepime. ID and IP consulted - continue cefepime, DC vanc - RVP, sputum PCR, MRSA PCR - follow BCX - Incentive spirometer, CPT, pulmonary toilet, DuoNeb, and flutter valve - IP consulted, planning thoracentesis, question of pleurex and endobronchial stent Assessment & Plan (05/12/2025 9:01 PM INDUSTRIAL HYGIENE ENGINEER): Presented with [id number] shortness of breath and increased oxygen requirement. CT showed evidence of worsening post-obstructive pneumonia on the left side associated with left lung collapse in the setting of progressive disease, as evident from the CAT scan. There was no pulmonary embolism. The patient was started on broad-spectrum antibiotics with vancomycin and cefepime. - Continue broad-spectrum antibiotics with cefepime and vancomycin - Incentive spirometer, CPT, pulmonary toilet, DuoNeb, and flutter valve - Might consider pulmonary consult Shortness of breath 05/12/2025 Assessment & Plan (05/16/2025 11:51 AM INDUSTRIAL HYGIENE ENGINEER): Presented with [id number] shortness of breath and increased oxygen requirement. Admitted 04/28-05/01 for similar presentation, was on broad spectrum abx and was continued on abx discharge. 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 CT here showed evidence of worsening post-obstructive pneumonia on the left side associated with left lung collapse in the setting of progressive disease, as evident from the CAT scan. There was no pulmonary embolism. The patient underwent thoracentesis in ED and was started on broad-spectrum antibiotics with vancomycin and cefepime. Blood cultures obtained without growth. ID and IP consulted, attempted repeat thoracentesis however unable to find adequate amount of fluid. Repeat CT chest 05/15 showed persistent L sided malignany effusion, persistent lung collapse, evidence of post-obstructive PNA, along with trace volume of gas anterior to mediastinum possibly trapped pleural air vs less likely trace pneumomediastinum. Findings discussed with ID and IP, plan for return as outpatient next week for Pleurex drain with IP, 5-7 days of cefepime IV for PNA. - continue cefepime 5-7 days per ID, day 5 05/16. - Incentive spirometer, CPT, pulmonary toilet, DuoNeb, and flutter valve - IP consulted, outpatient follow up Assessment & Plan (05/15/2025 6:39 PM INDUSTRIAL HYGIENE ENGINEER): Presented with [id number] shortness of breath and increased oxygen requirement. Admitted 04/28-05/01 for similar presentation, was on broad spectrum abx and was continued on abx discharge. 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 CT here showed evidence of worsening post-obstructive pneumonia on the left side associated with left lung collapse in the setting of progressive disease, as evident from the CAT scan. There was no pulmonary embolism. The patient underwent thoracentesis in ED and was started on broad-spectrum antibiotics with vancomycin and cefepime. ID and IP consulted, attempted repeat thoracentesis however unable to find adequate amount of fluid. Repeat CT chest 05/15 showed persistent L sided malignany effusion, persistent lung collapse, evidence of post-obstructive PNA, along with trace volume of gas anterior to mediastinum possibly trapped pleural air vs less likely trace pneumomediastinum. Findings discussed with ID and IP, plan for return as outpatient next week for Pleurex drain with IP, 5-7 days of cefepime IV for PNA. - continue cefepime 5-7 days per ID, day 5 05/16. - follow BCX - Incentive spirometer, CPT, pulmonary toilet, DuoNeb, and flutter valve - IP consulted, outpatient follow up Assessment & Plan (05/14/2025 4:50 PM INDUSTRIAL HYGIENE ENGINEER): Presented with [id number] shortness of breath and increased oxygen requirement. Admitted 04/28-05/01 for similar presentation, was on broad spectrum abx and was continued on abx discharge. 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 CT here showed evidence of worsening post-obstructive pneumonia on the left side associated with left lung collapse in the setting of progressive disease, as evident from the CAT scan. There was no pulmonary embolism. The patient underwent thoracentesis in ED and was started on broad-spectrum antibiotics with vancomycin and cefepime. ID and IP consulted - continue cefepime - sputum PCR if able - follow BCX - Incentive spirometer, CPT, pulmonary toilet, DuoNeb, and flutter valve - IP consulted, repeat CT chest WO Assessment & Plan (05/13/2025 5:39 PM INDUSTRIAL HYGIENE ENGINEER): Presented with [id number]-he-[id number] shortness of breath and increased oxygen requirement. Admitted 04/28-05/01 for similar presentation, was on broad spectrum abx and was continued on abx discharge. 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 CT here showed evidence of worsening post-obstructive pneumonia on the left side associated with left lung collapse in the setting of progressive disease, as evident from the CAT scan. There was no pulmonary embolism. The patient was started on broad-spectrum antibiotics with vancomycin and cefepime. ID and IP consulted - continue cefepime, DC vanc - RVP, sputum PCR, MRSA PCR - follow BCX - Incentive spirometer, CPT, pulmonary toilet, DuoNeb, and flutter valve - IP consulted, planning thoracentesis, question of pleurex and endobronchial stent Assessment & Plan (05/12/2025 9:01 PM INDUSTRIAL HYGIENE ENGINEER): Presented with [id number] shortness of breath and increased oxygen requirement. CT showed evidence of worsening post-obstructive pneumonia on the left side associated with left lung collapse in the setting of progressive disease, as evident from the CAT scan. There was no pulmonary embolism. The patient was started on broad-spectrum antibiotics with vancomycin and cefepime. - Continue broad-spectrum antibiotics with cefepime and vancomycin - Incentive spirometer, CPT, pulmonary toilet, DuoNeb, and flutter valve - Might consider pulmonary consult Hospital discharge follow-up 05/07/2025 Assessment & Plan (05/07/2025 10:00 PM INDUSTRIAL HYGIENE ENGINEER): Has help/ support at home. On palliative care as well. Has all discharge medications. Denies questions. Medications reconciled. Sinus tachycardia 04/28/2025 Assessment & Plan (05/01/2025 7:32 AM INDUSTRIAL HYGIENE ENGINEER): Patient presented to the [facility] ED with tachycardia to 170s. EKG at that time revealed Atrial flutter. Pateint has no history of Afib or Aflutter, and is not on AC at home. Amiodarone bolused x 3 in the ED followed by Amio gtt. - Metoprolol 12.5 mg q6h started 04/28 > consolidated to Metop XL 50mg daily - Heparin gtt for AC > Eliquis 5mg BID - EKG as needed - Continuous Telemetry - Patient now in NSR, HR 80s - No need for Cardioversion at this time - Ordered 30 day MCT Assessment & Plan (04/30/2025 3:01 PM INDUSTRIAL HYGIENE ENGINEER): Patient presented to the [facility] ED with tachycardia to 170s. EKG at that time revealed Atrial flutter. Pateint has no history of Afib or Aflutter, and is not on AC at home. Amiodarone bolused x 3 in the ED followed by Amio gtt. - Continue Metoprolol 12.5 mg BID started 04/28 - Heparin gtt for AC - EKG as needed - Continuous Telemetry - Patient now in NSR, HR 80s - No need for Cardioversion at this time Assessment & Plan (04/30/2025 6:42 AM INDUSTRIAL HYGIENE ENGINEER): Patient presented to the [facility] ED with tachycardia to 170s. EKG at that time revealed Atrial flutter. Pateint has no history of Afib or Aflutter, and is not on AC at home. Amiodarone bolused x 3 in the ED followed by Amio gtt. - General Cardiology consult in the morning - Amio gtt continuing now at 0.5 mg/min - Metoprolol 12.5 mg BID started 04/28 - Heparin gtt for AC - EKG as needed - Continuous Telemetry Assessment & Plan (04/29/2025 8:10 AM INDUSTRIAL HYGIENE ENGINEER): Patient presented to the [facility] ED with tachycardia to 170s. EKG at that time revealed Atrial flutter. Pateint has no history of Afib or Aflutter, and is not on AC at home. Amiodarone bolused x 3 in the ED followed by Amio gtt. - General Cardiology consult in the morning - Amio gtt continuing now at 0.5 mg/min - Metoprolol 12.5 mg BID started 04/28 - Heparin gtt for AC - EKG as needed - Continuous Telemetry Atrial flutter by electrocardiogram 04/28/2025 Assessment & Plan (05/16/2025 11:51 AM INDUSTRIAL HYGIENE ENGINEER): Similar issue prior admission. This time again presented with atrial flutter with RVR started on amiodarone boluses and continued on amiodarone infusion, converted to NSR. Cardiology consulted and recommended increasing metop to XL 50mg BID and deferred amio due to risk for worsening pulmonary status - continue metop XL 50mg BID - Keep on telemetry - resume eliquis - outpatient cardio-onc follow up, referral placed Assessment & Plan (05/15/2025 6:39 PM INDUSTRIAL HYGIENE ENGINEER): Similar issue prior admission. This time again presented with atrial flutter with RVR started on amiodarone boluses and continued on amiodarone infusion, converted to NSR. Cardiology consulted and recommended increasing metop to XL 50mg BID and deferred amio due to risk for worsening pulmonary status - continue metop XL 50mg BID - Keep on telemetry - resume eliquis - outpatient cardio-onc follow up Assessment & Plan (05/14/2025 4:50 PM INDUSTRIAL HYGIENE ENGINEER): Similar issue prior admission. This time again presented with atrial flutter with RVR started on amiodarone boluses and continued on amiodarone infusion, converted to NSR. Cardiology consulted and recommended increasing metop and deferred amio due to risk for worsening pulmonary status - continue metop XL 50mg BID - Keep on telemetry - Switch from Eliquis to heparin drip for possible procedures - outpatient cardio-onc follow up Assessment & Plan (05/13/2025 5:39 PM INDUSTRIAL HYGIENE ENGINEER): Similar issue prior admission. This time again presented with atrial flutter with RVR started on amiodarone boluses and continued on amiodarone infusion, converted to NSR. Cardiology consulted - stop amiodarone infusion - increase metop XL to 50mg BID - Keep on telemetry - Switch from Eliquis to heparin drip for possible procedures - outpatient cardio-onc follow up Assessment & Plan (05/12/2025 9:01 PM INDUSTRIAL HYGIENE ENGINEER): Patient presented with atrial flutter with RVR started on amiodarone boluses and continued on amiodarone infusion - Continue amiodarone infusion - Keep on telemetry - Continue metoprolol - Switch from Eliquis to heparin drip Assessment & Plan (05/07/2025 10:00 PM INDUSTRIAL HYGIENE ENGINEER): Rate controlled with metoprolol. On anticoagulation - eliquis. Refills given on both. Assessment & Plan (05/01/2025 7:32 AM INDUSTRIAL HYGIENE ENGINEER): Patient presented to the [facility] ED with tachycardia to 170s. EKG at that time revealed Atrial flutter. Pateint has no history of Afib or Aflutter, and is not on AC at home. Amiodarone bolused x 3 in the ED followed by Amio gtt. - Metoprolol 12.5 mg q6h started 04/28 > consolidated to Metop XL 50mg daily - Heparin gtt for AC > Eliquis 5mg BID - EKG as needed - Continuous Telemetry - Patient now in NSR, HR 80s - No need for Cardioversion at this time - Ordered 30 day MCT Assessment & Plan (04/30/2025 3:01 PM INDUSTRIAL HYGIENE ENGINEER): Patient presented to the [facility] ED with tachycardia to 170s. EKG at that time revealed Atrial flutter. Pateint has no history of Afib or Aflutter, and is not on AC at home. Amiodarone bolused x 3 in the ED followed by Amio gtt. - Continue Metoprolol 12.5 mg BID started 04/28 - Heparin gtt for AC - EKG as needed - Continuous Telemetry - Patient now in NSR, HR 80s - No need for Cardioversion at this time Assessment & Plan (04/30/2025 6:42 AM INDUSTRIAL HYGIENE ENGINEER): Patient presented to the [facility] ED with tachycardia to 170s. EKG at that time revealed Atrial flutter. Pateint has no history of Afib or Aflutter, and is not on AC at home. Amiodarone bolused x 3 in the ED followed by Amio gtt. - General Cardiology consult in the morning - Amio gtt continuing now at 0.5 mg/min - Metoprolol 12.5 mg BID started 04/28 - Heparin gtt for AC - EKG as needed - Continuous Telemetry Assessment & Plan (04/29/2025 8:10 AM INDUSTRIAL HYGIENE ENGINEER): Patient presented to the [facility] ED with tachycardia to 170s. EKG at that time revealed Atrial flutter. Pateint has no history of Afib or Aflutter, and is not on AC at home. Amiodarone bolused x 3 in the ED followed by Amio gtt. - General Cardiology consult in the morning - Amio gtt continuing now at 0.5 mg/min - Metoprolol 12.5 mg BID started 04/28 - Heparin gtt for AC - EKG as needed - Continuous Telemetry Recurrent pleural effusion on left 04/28/2025 Assessment & Plan (05/01/2025 12:14 PM INDUSTRIAL HYGIENE ENGINEER): CTPE revealed a long-standing continuous left-sided pleural effusion with consolidation concerning for possible pneumonia. Patient remains afebrile with mild leukocytosis to 12.7. Pleural fluid studies indicative of a parapneumonic effusion (Exudative). Cell differential notable for Abundant histiocytes and reactive mesothelial cells. Rare atypical epitheloid cells present. - ABX: Vanc/Cefepime (04/29-04/30), Ceftriaxone 2g Q24H and Flagyl 500 mg BID (04/30 - 05/08), follow up with PCP for further monitoring of effusion and post- obstructive pneumonia for improvement with ABX - 1/2 Blood cultures with MRSE, 1/2 NGTD -> likely contamination - Pleural fluid cultures with NGTD, cytology pending - Sputum cultures with oropharyngeal contamination Assessment & Plan (04/30/2025 3:01 PM INDUSTRIAL HYGIENE ENGINEER): CTPE revealed a long-standing continuous left-sided pleural effusion with consolidation concerning for possible pneumonia. Patient remains afebrile with mild leukocytosis to 12.7. - Discontinued Vanc/Cefepime inpatient - Started Ceftriaxone 2g Q24H and Flagyl 500 mg BID - 1/2 Blood cultures with MRSE, 1/2 NGTD -> likely contamination - Sputum cultures with oropharyngeal contamination Assessment & Plan (04/30/2025 6:42 AM INDUSTRIAL HYGIENE ENGINEER): CTPE revealed a long-standing continuous left-sided pleural effusion with consolidation concerning for possible pneumonia. Patient remains afebrile with mild leukocytosis to 12.7. - Status post one time dose of Cefepime/Vanc/ Flagyl in ED - Reordered Cefepime 2g Q8H, Vancomycin 1.250g Q12H - Blood Culture preliminary results -> Gram + Cocci in clusters - Sputum cultures pending Assessment & Plan (04/29/2025 8:10 AM INDUSTRIAL HYGIENE ENGINEER): CTPE revealed a long-standing continuous left-sided pleural effusion with consolidation concerning for possible pneumonia. Patient remains afebrile with mild leukocytosis to 12.7. 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 RVSP 25. -Hold metoprolol, losartan, empagliflozin given hypotension on admission, resume at discharge. Assessment & Plan (06/12/2025 4:36 AM INDUSTRIAL HYGIENE ENGINEER): TTE 04/2025: EF 43%, with RV dilation. RVSP 25. -Hold metoprolol, losartan, empagliflozin given hypotension [employer] Assessment & Plan (05/16/2025 11:51 AM INDUSTRIAL HYGIENE ENGINEER): TTE 04/30/25 with EF 43%, RV dilation. Does not appear significantly volume overloaded - continue metop as above - start losartan 25mg, uptitrate as able - further GDMT outpatient, outpatient cardio-onc follow up. Assessment & Plan (05/15/2025 6:39 PM INDUSTRIAL HYGIENE ENGINEER): TTE 04/30/25 with EF 43%, RV dilation. Does not appear significantly volume overloaded - continue metop as above - start losartan 25mg, uptitrate as able - further GDMT outpatient, outpatient cardio-onc follow up. Assessment & Plan (05/14/2025 4:50 PM INDUSTRIAL HYGIENE ENGINEER): TTE 04/30/25 with EF 43%, RV dilation. Does not appear significantly volume overloaded - continue metop as above - start losartan, uptitrate as able - further GDMT outpatient, outpatient cardio-onc follow up. Assessment & Plan (05/13/2025 5:39 PM INDUSTRIAL HYGIENE ENGINEER): TTE 04/30/25 with EF 43%, RV dilation. Does not appear significantly volume overloaded - continue metop as above - start losartan, uptitrate as able - further GDMT outpatient, outpatient cardio-onc follow up. Assessment & Plan (05/12/2025 9:01 PM INDUSTRIAL HYGIENE ENGINEER): Continue metoprolol 50 mg daily Assessment & Plan (05/01/2025 12:14 PM INDUSTRIAL HYGIENE ENGINEER): - Holding home Losartan and amlodipine in light of lower BP - Metoprolol XL as above Assessment & Plan (04/30/2025 3:01 PM INDUSTRIAL HYGIENE ENGINEER): - Holding home Losartan in light of lower BP - Metoprolol tartrate 12.5 mg BID started Assessment & Plan (04/30/2025 6:42 AM INDUSTRIAL HYGIENE ENGINEER): - Holding home Losartan in light of lower BP - Metoprolol tartrate 12.5 mg BID started Assessment & Plan (04/29/2025 8:10 AM INDUSTRIAL HYGIENE ENGINEER): - Holding home Losartan in light of lower BP - Metoprolol tartrate 12.5 mg BID started Primary osteoarthritis of both hands 04/16/2025 Hypertriglyceridemia 04/16/2025 Cervical radiculopathy 04/02/2025 Tobacco use disorder, moderate, dependence 04/02 Assessment & Plan (05/01/2025 7:32 AM INDUSTRIAL HYGIENE ENGINEER): Patient endorses a >40 year history smoking 2.5 ppd. Recently smoking 1 ppd since cancer diagnosis. - Ordered 21 mg Nicotine Patch Q24H Assessment & Plan (04/30/2025 3:01 PM INDUSTRIAL HYGIENE ENGINEER): Patient endorses a >40 year history smoking 2.5 ppd. Recently smoking 1 ppd since cancer diagnosis. - Ordered 21 mg Nicotine Patch Q24H Assessment & Plan (04/30/2025 6:42 AM INDUSTRIAL HYGIENE ENGINEER): Patient endorses a >40 year history smoking 2.5 ppd. Recently smoking 1 ppd since cancer diagnosis. - Ordered 21 mg Nicotine Patch Q24H Assessment & Plan (04/28/2025 7:55 PM INDUSTRIAL HYGIENE ENGINEER): Patient endorses a >40 year history smoking 2.5 ppd. Recently smoking 1 ppd since cancer diagnosis. - Ordered 21 mg Nicotine Patch Q24H Hypercalcemia 03/20/2025 Assessment & Plan (05/16/2025 11:51 AM INDUSTRIAL HYGIENE ENGINEER): Serum calcium to 11.1 in the setting of known bone Mets, iCA around 6 while admitted and improved somewhat with IV fluids, patient asymptomatic - NS infusion 100 cc/hr - monitor iCa Assessment & Plan (05/15/2025 6:39 PM INDUSTRIAL HYGIENE ENGINEER): Serum calcium to 11.1 in the setting of known bone Mets, iCA around 6 while admitted and improved somewhat with IV fluids, patient asymptomatic - NS infusion 100 cc/hr - monitor iCa Assessment & Plan (05/14/2025 4:50 PM INDUSTRIAL HYGIENE ENGINEER): Serum calcium to 11.1 in the setting of known bone Mets - NS infusion 100 cc/hr today - monitor iCa Assessment & Plan (05/13/2025 5:39 PM INDUSTRIAL HYGIENE ENGINEER): Serum calcium to 11.1 in the setting of known bone Mets - NS infusion 50 cc/hr today - monitor iCa Assessment & Plan (05/13/2025 6:40 AM INDUSTRIAL HYGIENE ENGINEER): Serum calcium to 11.1 in the setting of known bone Mets - NS infusion 50 cc/hr - Will continue to monitor Malignant neoplasm metastatic to bone 03/20/2025 Assessment & Plan (06/13/2025 2:46 PM INDUSTRIAL HYGIENE ENGINEER): Follows with Dr. Maya. 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 -Onc consult -Management of possible ICANS/CRS as otherwise noted Assessment & Plan (06/12/2025 4:36 AM INDUSTRIAL HYGIENE ENGINEER): follows with Dr. 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 Patient has undergone several rounds of chemotherapy, radiotherapy, resection. Despite this patient has had disease progression with mets to brain. Most recently received C1D1 of AU-007 and rhIL-2 (HRPO [id number]) 06/11. -Onc consult -Management of possible ICANS/CRS as otherwise noted Cancer related pain 03/06/2025 Assessment & Plan (06/13/2025 2:46 PM INDUSTRIAL HYGIENE ENGINEER): -Holding oxycodone + Morphine ER, restart as able Assessment & Plan (06/12/2025 4:36 AM INDUSTRIAL HYGIENE ENGINEER): -Holding oxycodone + Morphine ER, restart as able Assessment & Plan (05/16/2025 11:51 AM INDUSTRIAL HYGIENE ENGINEER): - Continue home MS Contin, MSIR and oxycodone Assessment & Plan (05/15/2025 6:39 PM INDUSTRIAL HYGIENE ENGINEER): - Continue home MS Contin, MSIR and oxycodone Assessment & Plan (05/14/2025 4:50 PM INDUSTRIAL HYGIENE ENGINEER): - Continue home MS Contin, MSIR and oxycodone Assessment & Plan (05/13/2025 5:39 PM INDUSTRIAL HYGIENE ENGINEER): - Continue home MS Contin, MSIR and oxycodone Assessment & Plan (05/12/2025 9:01 PM INDUSTRIAL HYGIENE ENGINEER): Continue home MS Contin, MSIR and oxycodone Assessment & Plan (05/01/2025 7:32 AM INDUSTRIAL HYGIENE ENGINEER): Patient was diagnosed with Squamous cell carcinoma lung cancer in spring. He has been on an experimental chemotherapy regimen as part of a clinical trial. He was scheduled for another round of chemotherapy this morning, 04/28, when he was found to have tachycardia and was sent to the ED. - Follows with [facility] for cancer management and chemotherapy - Per Palliative care, patient is planning on nerve ablation in future for arm pain - Continue scheduled home Morphine ER 45 mg TID - Continue Oxycodone 30 mg Q4H prn for breakthrough pain - Continue scheduled Tylenol 1g Q6H - Restart home Naloxegol for opiate-related constipation Assessment & Plan (04/30/2025 3:01 PM INDUSTRIAL HYGIENE ENGINEER): Patient was diagnosed with Squamous cell carcinoma lung cancer in spring. He has been on an experimental chemotherapy regimen as part of a clinical trial. He was scheduled for another round of chemotherapy this morning, 04/28, when he was found to have tachycardia and was sent to the ED. - Follows with [facility] for cancer management and chemotherapy - Per Palliative care, patient is planning on nerve ablation in future for arm pain - Continue scheduled home Morphine ER 45 mg TID - Continue Oxycodone 30 mg Q4H prn for breakthrough pain - Continue scheduled Tylenol 1g Q6H - Restart home Naloxegol for opiate-related constipation Assessment & Plan (04/30/2025 6:42 AM INDUSTRIAL HYGIENE ENGINEER): Patient was diagnosed with Squamous cell carcinoma lung cancer in spring. He has been on an experimental chemotherapy regimen as part of a clinical trial. He was scheduled for another round of chemotherapy this morning, 04/28, when he was found to have tachycardia and was sent to the ED. - Follows with [facility] for cancer management and chemotherapy - Continue scheduled home Morphine ER 45 mg TID - Continue Oxycodone 30 mg Q4H prn for breakthrough pain - Continue scheduled Tylenol 1g Q6H - Discontinued Dilaudid 1 mg PRN - Restart home Naloxegol for opiate-related constipation Assessment & Plan (04/29/2025 8:10 AM INDUSTRIAL HYGIENE ENGINEER): Patient was diagnosed with Squamous cell carcinoma lung cancer in spring. He has been on an experimental chemotherapy regimen as part of a clinical trial. He was scheduled for another round of chemotherapy this morning, 04/28, when he was found to have tachycardia and was sent to the ED. 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 CT left humerus showed interval increase in size of soft tissue deposits involving the left deltoid and triceps musculature which tracked inferiorly into the more superficial soft tissues of the left lateral arm. Findings may represent disease progression and/or superimposed infection. Overall stable osseous erosion/cortical bone loss. I reached out to the radiologist who read CT scan from 03/05. Unfortunately due to metal artifact the skin is difficult to interpret but from what they can tell the soft tissue infection reaches a level deep enough to immediately abut the hardware. Micro: Blood cultures 03/05 NGTD. Antibiotics: Cefepime (03/04-), vancomycin (03/04-) Recommendations: -Discontinue vancomycin and cefepime -Start daptomycin 8 mg/kg and ampicillin-sulbactam 3 g q.6 hours while here -This will hopefully allow us to discharge patient on doxycycline/Augmentin once ready to go home -If no improvement on antibiotics we will need to have discussion regarding source control or at least deeper sampling of tissue -Given proximity of soft tissue infection to underlying hardware, would consider this a hardware related infection and encourage primary team to communicate with orthopedic surgery Stage 4 lung cancer 03/04/2025 Assessment & Plan (06/13/2025 2:46 PM INDUSTRIAL HYGIENE ENGINEER): Follows with Dr. Maya. 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 -Onc consult -Management of possible ICANS/CRS as otherwise noted Assessment & Plan (06/12/2025 4:36 AM INDUSTRIAL HYGIENE ENGINEER): follows with Dr. 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 Patient has undergone several rounds of chemotherapy, radiotherapy, resection. Despite this patient has had disease progression with mets to brain. Most recently received C1D1 of AU-007 and rhIL-2 (HRPO [id number]) 06/11. -Onc consult -Management of possible ICANS/CRS as otherwise noted Assessment & Plan (05/16/2025 11:51 AM INDUSTRIAL HYGIENE ENGINEER): Patient with history of metastatic small cell lung cancer, with progressive disease despite of 2 lines of therapy currently on a clinical trial started on 04/07/2025 complicated by recent hospitalization with atrial flutter, left pleural effusion and postobstructive pneumonia. Patient also follow with palliative care as an outpatient. CT with evidence of progressive disease compared to the recent images on 04/28/2025 - Medical Oncology consulted Assessment & Plan (05/15/2025 6:39 PM INDUSTRIAL HYGIENE ENGINEER): Patient with history of metastatic small cell lung cancer, with progressive disease despite of 2 lines of therapy currently on a clinical trial started on 04/07/2025 complicated by recent hospitalization with atrial flutter, left pleural effusion and postobstructive pneumonia. Patient also follow with palliative care as an outpatient. CT with evidence of progressive disease compared to the recent images on 04/28/2025 - Medical Oncology consulted Assessment & Plan (05/14/2025 4:50 PM INDUSTRIAL HYGIENE ENGINEER): Patient with history of metastatic small cell lung cancer, with progressive disease despite of 2 lines of therapy currently on a clinical trial started on 04/07/2025 complicated by recent hospitalization with atrial flutter, left pleural effusion and postobstructive pneumonia. Patient also follow with palliative care as an outpatient. CT with evidence of progressive disease compared to the recent images on 04/28/2025 - Medical Oncology consulted Assessment & Plan (05/13/2025 5:39 PM INDUSTRIAL HYGIENE ENGINEER): Patient with history of metastatic small cell lung cancer, with progressive disease despite of 2 lines of therapy currently on a clinical trial started on 04/07/2025 complicated by recent hospitalization with atrial flutter, left pleural effusion and postobstructive pneumonia. Patient also follow with palliative care as an outpatient. CT with evidence of progressive disease compared to the recent images on 04/28/2025 - Medical Oncology consulted Assessment & Plan (05/12/2025 9:01 PM INDUSTRIAL HYGIENE ENGINEER): Patient with history of metastatic small cell lung cancer, with progressive disease despite of 2 lines of therapy currently on a clinical trial started on 04/07/2025 complicated by recent hospitalization with atrial flutter, left pleural effusion and postobstructive pneumonia. Patient also follow with palliative care as an outpatient. CT with evidence of progressive disease compared to the recent images on 04/28/2025 - Medical Oncology consult in the morning - Palliative care consult given worsening disease and intolerance to clinical trial given tow hospitalizations within the last month Assessment & Plan (05/01/2025 7:32 AM INDUSTRIAL HYGIENE ENGINEER): Patient was diagnosed with Squamous cell carcinoma lung cancer in spring. He has been on an experimental chemotherapy regimen as part of a clinical trial. He was scheduled for another round of chemotherapy this morning, 04/28, when he was found to have tachycardia and was sent to the ED. - Follows with [facility] for cancer management and chemotherapy - Per Palliative care, patient is planning on nerve ablation in future for arm pain - Continue scheduled home Morphine ER 45 mg TID - Continue Oxycodone 30 mg Q4H prn for breakthrough pain - Continue scheduled Tylenol 1g Q6H - Restart home Naloxegol for opiate-related constipation Assessment & Plan (04/30/2025 3:01 PM INDUSTRIAL HYGIENE ENGINEER): Patient was diagnosed with Squamous cell carcinoma lung cancer in spring. He has been on an experimental chemotherapy regimen as part of a clinical trial. He was scheduled for another round of chemotherapy this morning, 04/28, when he was found to have tachycardia and was sent to the ED. - Follows with [facility] for cancer management and chemotherapy - Per Palliative care, patient is planning on nerve ablation in future for arm pain - Continue scheduled home Morphine ER 45 mg TID - Continue Oxycodone 30 mg Q4H prn for breakthrough pain - Continue scheduled Tylenol 1g Q6H - Restart home Naloxegol for opiate-related constipation Assessment & Plan (04/30/2025 6:42 AM INDUSTRIAL HYGIENE ENGINEER): Patient was diagnosed with Squamous cell carcinoma lung cancer in spring. He has been on an experimental chemotherapy regimen as part of a clinical trial. He was scheduled for another round of chemotherapy this morning, 04/28, when he was found to have tachycardia and was sent to the ED. - Follows with [facility] for cancer management and chemotherapy - Continue scheduled home Morphine ER 45 mg TID - Continue Oxycodone 30 mg Q4H prn for breakthrough pain - Continue scheduled Tylenol 1g Q6H - Discontinued Dilaudid 1 mg PRN - Restart home Naloxegol for opiate-related constipation Assessment & Plan (04/29/2025 8:10 AM INDUSTRIAL HYGIENE ENGINEER): Patient was diagnosed with Squamous cell carcinoma lung cancer in spring. He has been on an experimental chemotherapy regimen as part of a clinical trial. He was scheduled for another round of chemotherapy this morning, 04/28, when he was found to have tachycardia and was sent to the ED. - Follows with [facility] for cancer management and chemotherapy - Continue scheduled home Morphine ER 45 mg TID - Continue Oxycodone 30 mg Q4H prn for breakthrough pain - Continue scheduled Tylenol 1g Q6H - Discontinued Dilaudid 1 mg PRN - Restart home Naloxegol for opiate-related constipation Assessment & Plan (03/07/2025 11:24 AM CDT): / Diagnosed in 10/18/2023 / PET 10/16/2023 with increased FDG uptake in a left lung lesion, mediastinal lymph node conglomerate, proximal humeral and hepatic lesions; s/p bx L shoulder lesion with SCC / s/p surgical excision of L humeral lesion 10/26/2023; s/p post op RT to L humerus 12/05/2023-12/11/2023 / Initiated Carbo/Abraxane 11/28/2023 (Pembro added with C2) x4 cycles followed by maintenance pem 03/05/2024-08/27/2024; s/p surgical excision and curettage of MIRNA arm 10/04/2024; s/p post op RT to L humerus 11/11/2024-11/15/2024; / Brain MRI 11/15/2024 with new intracranial lesions; s/p SBRT to brain 12/02/2024-12/06/2024 / Most recently initiated AB248 trial C1 12/24/2024, s/p C3 02/11/2025 / CT of left humerus from this admission showed interval increase in size of soft tissue deposits/collections involving the left deltoid and triceps musculature which track inferiorly into the more superficial soft tissues of the left lateral arm and in one region, the skin surface, interval increase in subcutaneous edema with associated skin thickening. / Overall stable osseous erosion/cortical bone loss of the humerus. / Blood cultures negative for growth till date - ID consulted to comment on whether his presentation is concerning for infectious osteomyelitis superimposed on underlying cancer - Given low concern for active infection, as per ID and Ortho, can transition to oral Doxycycline and Augmentin for 2-4 weeks and later extend to 6 week if improvement is noted in symptoms. Stopped daptomycin and ampicillin-sulbactam - Stopped home levetiracetam 500 mg BID as per discussion with Rad Onc attending, Dr. Orosco as it was making him fatigued/tired in the past (he was started on levetiracetam by neurosurgery in 11/30/24 because of a suspected seizure event; he never had recurrence of seizure) Assessment & Plan (03/06/2025 5:43 PM CDT): / Diagnosed in 10/18/2023 / PET 10/16/2023 with increased FDG uptake in a left lung lesion, mediastinal lymph node conglomerate, proximal humeral and hepatic lesions; s/p bx L shoulder lesion with SCC / s/p surgical excision of L humeral lesion 10/26/2023; s/p post op RT to L humerus 12/05/2023-12/11/2023 / Initiated Carbo/Abraxane 11/28/2023 (Pembro added with C2) x4 cycles followed by maintenance pem 03/05/2024-08/27/2024; s/p surgical excision and curettage of MIRNA arm 10/04/2024; s/p post op RT to L humerus 11/11/2024-11/15/2024; / Brain MRI 11/15/2024 with new intracranial lesions; s/p SBRT to brain 12/02/2024-12/06/2024 / Most recently initiated AB248 trial C1 12/24/2024, s/p C3 02/11/2025 / CT of left humerus from this admission showed interval increase in size of soft tissue deposits/collections involving the left deltoid and triceps musculature which track inferiorly into the more superficial soft tissues of the left lateral arm and in one region, the skin surface, interval increase in subcutaneous edema with associated skin thickening. / Overall stable osseous erosion/cortical bone loss of the humerus. / Blood cultures negative for growth till date - ID consulted to comment on whether his presentation is concerning for infectious osteomyelitis superimposed on underlying cancer - Given low concern for active infection, as per ID and Ortho, can transition to oral Doxycycline and Augmentin for 2-4 weeks and later extend to 6 week if improvement is noted in symptoms. Stopped daptomycin and ampicillin-sulbactam - Stopped home levetiracetam 500 mg BID as per discussion with Rad Onc attending, Dr. Orosco as it was making him fatigued/tired in the past (he was started on levetiracetam by neurosurgery in 11/30/24 because of a suspected seizure event; he never had recurrence of seizure) Assessment & Plan (03/05/2025 4:38 PM CDT): / Diagnosed in 10/18/2023 / PET 10/16/2023 with increased FDG uptake in a left lung lesion, mediastinal lymph node conglomerate, proximal humeral and hepatic lesions; s/p bx L shoulder lesion with SCC / s/p surgical excision of L humeral lesion 10/26/2023; s/p post op RT to L humerus 12/05/2023-12/11/2023 / Initiated Carbo/Abraxane 11/28/2023 (Pembro added with C2) x4 cycles followed by maintenance pem 03/05/2024-08/27/2024; s/p surgical excision and curettage of MIRNA arm 10/04/2024; s/p post op RT to L humerus 11/11/2024-11/15/2024; / Brain MRI 11/15/2024 with new intracranial lesions; s/p SBRT to brain 12/02/2024-12/06/2024 / Most recently initiated AB248 trial C1 12/24/2024, s/p C3 02/11/2025 / CT of left humerus from this admission showed interval increase in size of soft tissue deposits/collections involving the left deltoid and triceps musculature which track inferiorly into the more superficial soft tissues of the left lateral arm and in one region, the skin surface, interval increase in subcutaneous edema with associated skin thickening. / Overall stable osseous erosion/cortical bone loss of the humerus. / Blood cultures negative for growth till date - Continue empiric Vancomycin and Cefepime as of now - ID consulted to comment on whether his presentation is concerning for infectious osteomyelitis superimposed on underlying cancer - Stopped home levetiracetam 500 mg BID as per discussion with Rad Onc attending, Dr. Orosco as it was making him fatigued/tired in the past (he was started on levetiracetam by neurosurgery in 11/30/24 because of a suspected seizure event; he never had recurrence of seizure) Assessment & Plan (03/05/2025 4:59 PM CDT): Imaging: XR left humerus showed curettage/excision, cementing and multi planer and screw fixation with possible backing out of the most lateral plate cranially. CT left humerus showed interval increase in size of soft tissue deposits involving the left deltoid and triceps musculature which tracked inferiorly into the more superficial soft tissues of the left lateral arm. Findings may represent disease progression and/or superimposed infection. Overall stable osseous erosion/cortical bone loss. I reached out to the radiologist who read CT scan from 03/05. Unfortunately due to metal artifact the skin is difficult to interpret but from what they can tell the soft tissue infection reaches a level deep enough to immediately abut the hardware. Micro: Blood cultures 03/05 NGTD. Antibiotics: Cefepime (03/04-), vancomycin (03/04-) Recommendations: -Discontinue vancomycin and cefepime -Start daptomycin 8 mg/kg and ampicillin-sulbactam 3 g q.6 hours while here -This will hopefully allow us to discharge patient on doxycycline/Augmentin once ready to go home -If no improvement on antibiotics we will need to have discussion regarding source control or at least deeper sampling of tissue -Given proximity of soft tissue infection to underlying hardware, would consider this a hardware related infection and encourage primary team to communicate with orthopedic surgery Assessment & Plan (03/04/2025 10:47 PM CDT): Hx of metastatic SCC to L humerus w/ lytic lesion. Underwent surgical excision with fixation 11/16 and radiation, as well as repeat curettage 10/18. Presents to clinic today w/ worsening pain at surgical site with purulent discharge he describes as popping today, as well as erythema. No systemic symptoms such as fevers, chills, night sweats. No recent trauma. Suspicion for cellulitis w/ possibility of abscess, some c/f osteo. Will plan for imaging and antibiotics with surgical consult once imaging is obtained. History of significant pain despite narcotics. -Xray, CT arm pending -Blood cultures x2, MRSA nares in process -Vanc/cefe (03/04-) -Ortho consult pending imagine -Home gabapentin, morphine ER 45 AM, 30 noon, 45 PM + oxycodone 20 q4h PRN -Dilaudid PRN for breakthrough pain COPD (chronic obstructive pulmonary disease) 02/2025 Assessment & Plan (05/16/2025 11:51 AM INDUSTRIAL HYGIENE ENGINEER): - Trelegy Ellipta on hold while on DuoNebs Assessment & Plan (05/15/2025 6:39 PM INDUSTRIAL HYGIENE ENGINEER): - Trelegy Ellipta on hold while on DuoNebs Assessment & Plan (05/14/2025 4:50 PM INDUSTRIAL HYGIENE ENGINEER): - Trelegy Ellipta on hold while on DuoNebs Assessment & Plan (05/13/2025 5:39 PM INDUSTRIAL HYGIENE ENGINEER): - Trelegy Ellipta on hold while on DuoNebs Assessment & Plan (05/12/2025 9:01 PM INDUSTRIAL HYGIENE ENGINEER): Putting Trelegy Ellipta on hold while on DuoNebs Assessment & Plan (05/01/2025 7:32 AM INDUSTRIAL HYGIENE ENGINEER): - Continue home Albuterol - Trelegy Ellipta Assessment & Plan (04/30/2025 3:01 PM INDUSTRIAL HYGIENE ENGINEER): - Continue home Albuterol - Trelegy Ellipta Assessment & Plan (04/30/2025 6:42 AM INDUSTRIAL HYGIENE ENGINEER): - Continue home Albuterol - Started Trelegy Ellipta Assessment & Plan (04/29/2025 8:10 AM INDUSTRIAL HYGIENE ENGINEER): - Continue home Albuterol - Started Trelegy Ellipta Assessment & Plan (03/07/2025 11:24 AM CDT): / Continue Seiwxoqxszb-ogjwbeniiomo-bftcbtukkm inhaler / No evidence of exacerbation Assessment & Plan (03/06/2025 2:06 PM CDT): / Continue Ltuaigxipyh-webnppcxxbte-lspfxfmhui inhaler / No evidence of exacerbation Assessment & Plan (03/05/2025 4:38 PM CDT): / Continue Vrwrcsosuor-kbsnzleiyzvc-pdxkmnkxjo inhaler / No evidence of exacerbation Assessment & Plan (03/04/2025 10:47 PM CDT): Home breztri -> trelegy (formulary alternative). Breathing well on RA, does not feel he is in exacerbation HLD (hyperlipidemia) 03/04/2025 Assessment & Plan (05/01/2025 7:32 AM INDUSTRIAL HYGIENE ENGINEER): - Atorvastatin 20 mg daily Assessment & Plan (04/30/2025 3:01 PM INDUSTRIAL HYGIENE ENGINEER): - Atorvastatin 20 mg daily Assessment & Plan (04/30/2025 6:42 AM INDUSTRIAL HYGIENE ENGINEER): - Atorvastatin 20 mg daily Assessment & Plan (04/28/2025 7:55 PM INDUSTRIAL HYGIENE ENGINEER): - Atorvastatin 20 mg daily Assessment & Plan (03/07/2025 11:24 AM CDT): / Continue Pravastatin 20 daily Assessment & Plan (03/06/2025 2:06 PM CDT): / Continue Pravastatin 20 daily Assessment & Plan (03/05/2025 3:31 PM CDT): / Continue Pravastatin 20 daily Assessment & Plan (03/04/2025 10:47 PM CDT): Pravastatin 20 daily GERD (gastroesophageal reflux disease) Assessment & Plan (05/01/2025 7:32 AM INDUSTRIAL HYGIENE ENGINEER): - Pantoprazole 40 mg daily Assessment & Plan (04/30/2025 3:01 PM INDUSTRIAL HYGIENE ENGINEER): - Pantoprazole 40 mg daily Assessment & Plan (04/30/2025 6:42 AM INDUSTRIAL HYGIENE ENGINEER): - Pantoprazole 40 mg daily Assessment & Plan (04/28/2025 7:55 PM INDUSTRIAL HYGIENE ENGINEER): - Pantoprazole 40 mg daily Assessment & Plan (03/07/2025 11:24 AM CDT): / Pantoprazole 40 mg daily Assessment & Plan (03/06/2025 2:06 PM CDT): / Pantoprazole 40 mg daily Assessment & Plan (03/05/2025 3:31 PM CDT): / Pantoprazole 40 mg daily Assessment & Plan (03/04/2025 10:47 PM CDT): PPI daily Prophylaxis for chemotherapy-induced neutropenia 10/08/2024 Pathological fracture, left humerus, sequela 04/2025 Bone mass 09/24/2024 Primary cancer of left upper lobe of lung 2023 Assessment & Plan (05/01/2025 7:32 AM INDUSTRIAL HYGIENE ENGINEER): Patient was diagnosed with Squamous cell carcinoma lung cancer in spring. He has been on an experimental chemotherapy regimen as part of a clinical trial. He was scheduled for another round of chemotherapy this morning, 04/28, when he was found to have tachycardia and was sent to the ED. - Follows with [facility] for cancer management and chemotherapy - Per Palliative care, patient is planning on nerve ablation in future for arm pain - Continue scheduled home Morphine ER 45 mg TID - Continue Oxycodone 30 mg Q4H prn for breakthrough pain - Continue scheduled Tylenol 1g Q6H - Restart home Naloxegol for opiate-related constipation Assessment & Plan (04/30/2025 3:01 PM INDUSTRIAL HYGIENE ENGINEER): Patient was diagnosed with Squamous cell carcinoma lung cancer in spring. He has been on an experimental chemotherapy regimen as part of a clinical trial. He was scheduled for another round of chemotherapy this morning, 04/28, when he was found to have tachycardia and was sent to the ED. - Follows with [facility] for cancer management and chemotherapy - Per Palliative care, patient is planning on nerve ablation in future for arm pain - Continue scheduled home Morphine ER 45 mg TID - Continue Oxycodone 30 mg Q4H prn for breakthrough pain - Continue scheduled Tylenol 1g Q6H - Restart home Naloxegol for opiate-related constipation Assessment & Plan (04/30/2025 6:42 AM INDUSTRIAL HYGIENE ENGINEER): Patient was diagnosed with Squamous cell carcinoma lung cancer in spring. He has been on an experimental chemotherapy regimen as part of a clinical trial. He was scheduled for another round of chemotherapy this morning, 04/28, when he was found to have tachycardia and was sent to the ED. - Follows with [facility] for cancer management and chemotherapy - Continue scheduled home Morphine ER 45 mg TID - Continue Oxycodone 30 mg Q4H prn for breakthrough pain - Continue scheduled Tylenol 1g Q6H - Discontinued Dilaudid 1 mg PRN - Restart home Naloxegol for opiate-related constipation Assessment & Plan (04/29/2025 8:10 AM INDUSTRIAL HYGIENE ENGINEER): Patient was diagnosed with Squamous cell carcinoma lung cancer in spring. He has been on an experimental chemotherapy regimen as part of a clinical trial. He was scheduled for another round of chemotherapy this morning, 04/28, when he was found to have tachycardia and was sent to the ED. - Follows with [facility] for cancer management and chemotherapy - Continue scheduled home Morphine ER 45 mg TID - Continue Oxycodone 30 mg Q4H prn for breakthrough pain - Continue scheduled Tylenol 1g Q6H - Discontinued Dilaudid 1 mg PRN - Restart home Naloxegol for opiate-related constipation Metastasis to bone 10/23/2023 Mass of joint of left shoulder 10/18/2023 Assessment & Plan (03/07/2025 11:24 AM CDT): / Known mets to humerus with multiple surgeries and radiation in past / Unclear if it just represents the recurrence of cancer or superimposed infection - IR and pain consult placed to assist with possibility of nerve block and optimization of pain. He endorses improvement in pain with left stellate ganglion block - Continue home pain regimen of Gabapentin 300 mg BID, Morphine ER 45 mg total in morning and evening, and Morphine ER 30 mg every 8 hours Assessment & Plan (03/06/2025 2:06 PM CDT): / Known mets to humerus with multiple surgeries and radiation in past / Unclear if it just represents the recurrence of cancer or superimposed infection - IR and pain consult placed to assist with possibility of nerve block and optimization of pain. Nerve block likely today - Continue home pain regimen of Gabapentin 300 mg BID, Morphine ER 45 mg total in morning and evening, and Morphine ER 30 mg every 8 hours Assessment & Plan (03/05/2025 3:31 PM CDT): / Known mets to humerus with multiple surgeries and radiation in past / Unclear if it just represents the recurrence of cancer or superimposed infection - IR and pain consult placed to assist with possibility of nerve block and optimization of pain - Continue home pain regimen of Gabapentin 300 mg BID, Morphine ER 45 mg total in morning and evening, and Morphine ER 30 mg every 8 hours Assessment & Plan (03/05/2025 4:59 PM CDT): Imaging: XR left humerus showed curettage/excision, cementing and multi planer and screw fixation with possible backing out of the most lateral plate cranially. CT left humerus showed interval increase in size of soft tissue deposits involving the left deltoid and triceps musculature which tracked inferiorly into the more superficial soft tissues of the left lateral arm. Findings may represent disease progression and/or superimposed infection. Overall stable osseous erosion/cortical bone loss. I reached out to the radiologist who read CT scan from 03/05. Unfortunately due to metal artifact the skin is difficult to interpret but from what they can tell the soft tissue infection reaches a level deep enough to immediately abut the hardware. Micro: Blood cultures 03/05 NGTD. 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 S/p carboplatin + paclitaxel, then pembrolizumab, now on trial drug [id number] w/ first dose 12/24/24. Follows w/ Dr. Silva. Has previously demonstrated growth of arm lesion despite treatment. Known brain mets s/p radiation -Onc following, appreciate recs -Interval MRI brain per outpatient onc recs -Home keppra 500 BID Lesion of bone of left shoulder 09/25/2023 Resolved Problems Problem Noted Date Diagnosed Date Resolved Date Consolidation of left lower lobe of lung 04/28/2025 05/07/2025 Assessment & Plan (05/01/2025 12:14 PM INDUSTRIAL HYGIENE ENGINEER): CTPE revealed a long-standing continuous left-sided pleural effusion with consolidation concerning for possible pneumonia. Patient remains afebrile with mild leukocytosis to 12.7. Pleural fluid studies indicative of a parapneumonic effusion (Exudative). Cell differential notable for Abundant histiocytes and reactive mesothelial cells. Rare atypical epitheloid cells present. - ABX: Vanc/Cefepime (04/29-04/30), Ceftriaxone 2g Q24H and Flagyl 500 mg BID (04/30 - 05/08), follow up with PCP for further monitoring of effusion and post- obstructive pneumonia for improvement with ABX - 1/2 Blood cultures with MRSE, 1/2 NGTD -> likely contamination - Pleural fluid cultures with NGTD, cytology pending - Sputum cultures with oropharyngeal contamination Assessment & Plan (04/30/2025 3:01 PM INDUSTRIAL HYGIENE ENGINEER): CTPE revealed a long-standing continuous left-sided pleural effusion with consolidation concerning for possible pneumonia. Patient remains afebrile with mild leukocytosis to 12.7. - Discontinued Vanc/Cefepime inpatient - Started Ceftriaxone 2g Q24H and Flagyl 500 mg BID - 1/2 Blood cultures with MRSE, 1/2 NGTD -> likely contamination - Sputum cultures with oropharyngeal contamination Assessment & Plan (04/30/2025 6:42 AM INDUSTRIAL HYGIENE ENGINEER): CTPE revealed a long-standing continuous left-sided pleural effusion with consolidation concerning for possible pneumonia. Patient remains afebrile with mild leukocytosis to 12.7. - Status post one time dose of Cefepime/Vanc/ Flagyl in ED - Reordered Cefepime 2g Q8H, Vancomycin 1.250g Q12H - Blood Culture preliminary results -> Gram + Cocci in clusters - Sputum cultures pending Assessment & Plan (04/29/2025 8:10 AM INDUSTRIAL HYGIENE ENGINEER): CTPE revealed a long-standing continuous left-sided pleural effusion with consolidation concerning for possible pneumonia. Patient remains afebrile with mild leukocytosis to 12.7. - Status post one time dose of Cefepime/Vanc/ Flagyl in ED - Reordered Cefepime 2g Q8H, Vancomycin 1.250g Q12H - Blood Culture preliminary results -> Gram + Cocci in clusters - Sputum cultures pending Dizziness 04/16/2025 05/06/2025 Impacted cerumen of left ear 04/16/2025 04/16/2025 Sprained ankle 04/16/2025 05/06/2025 Concern for osteomyelitis 03/05/2025 Left lower lobe pulmonary nodule 12/06/2024 05/06/2025 Controlled type 2 diabetes m ellitus without complication, without long-term current use of insulin 02/15/2024 05/07/2025 Assessment & Plan (05/01/2025 7:32 AM INDUSTRIAL HYGIENE ENGINEER): - Continue Jardiance 10 mg daily - No need for SSI - POC Glucoses WNL Assessment & Plan (04/30/2025 3:01 PM INDUSTRIAL HYGIENE ENGINEER): - Continue Jardiance 10 mg daily - No need for SSI - POC Glucoses WNL Assessment & Plan (04/30/2025 6:42 AM INDUSTRIAL HYGIENE ENGINEER): - Continue Jardiance 10 mg daily - No need for SSI - POC Glucoses WNL Assessment & Plan (04/28/2025 7:55 PM INDUSTRIAL HYGIENE ENGINEER): - Continue Jardiance 10 mg daily - No need for SSI - POC Glucoses WNL Assessment & Plan (03/07/2025 11:24 AM CDT): / A1c 7% / On empagliflozin at home - Continue low dose sliding scale insulin Assessment & Plan (03/06/2025 2:06 PM CDT): / A1c 7% / On empagliflozin at home - Continue low dose sliding scale insulin Assessment & Plan (03/05/2025 3:31 PM CDT): / A1c 7% / On empagliflozin at home - Continue low dose sliding scale insulin Assessment & Plan (03/04/2025 10:47 PM CDT): A1C 7% -Carb consistent diet, LDSSI -Home Jardiance Encounter for medical examin ation to establish care 02/15/2024 05/06/2025 Assessment & Plan (02/15/2024 11:06 AM CDT): A(n) initial well visit to establish care has been performed today. Peter Newman is not up to date on screening tests. He is in need of Prostate screening, hepatitis C, Colon cancer screening, and Cholesterol screening. He is not up to date on needed preventative vaccinations; He is in need of Pneumonia (Prevnar-13 or Pneumovax- 23) and Zoster. We discussed healthy lifestyle habits, educational material has been given. Medications reviewed, changes documented as per the medical record and discussed with patient along with risks vs benefits. Specific topics reviewed: drugs, ETOH, and tobacco, importance of regular dental care, importance of regular exercise, importance of varied diet, limit TV, media violence, minimize junk food, and seat belts. Return in 1 month Gastric pain 01/16/2024 05/06/2025 Metastatic non-small cell lung cancer 11/17/2023 03/04/2025 Cervicalgia 04/11/2017 05/07/2025 Encounters Date Type Department Care Team Description 06/17/2025 Telephone [facility] Medicine Oncology [address] [place] [phone] Zahra Corley RN 06/16/2025 3:00 PM INDUSTRIAL HYGIENE ENGINEER Telemedicine [facility] Outpatient Health - Palliative Care [address] [facility] [place] [address] Ness Florentino MD Palliative care encounter (Primary Dx); Metastatic non-small cell lung cancer (HCC); Primary cancer of left upper lobe of lung (HCC); Cancer associated pain; Opioid-induced constipation; High risk medication use; Anxiety 06/11/2025 10:17 PM INDUSTRIAL HYGIENE ENGINEER - 06/13/2025 4:01 PM INDUSTRIAL HYGIENE ENGINEER Hospital Encounter [address] [phone] Jeffery Reid MD Watson, Howard Carcamo MD PhD Sea Ocampo MD Kneepkens, Adam Connell, MD Yu, Tong, MD Fong, Jerry, MD PhD Hypotension, unspecified hypotension type (Primary Dx); Primary malignant neoplasm of left lung metastatic to other site (HCC); Malignant pleural effusion (HCC); Disorientation; Hypercalcemia; Hyponatremia; Elevated troponin Discharge Disposition: Discharge to home or self care 06/11/2025 5:30 PM INDUSTRIAL HYGIENE ENGINEER Infusion [facility] - Infusion [address] [place] [address] Floor 6 [place] [address] Primary cancer of left upper lobe of lung (HCC) (Primary Dx) 06/11/2025 5:00 PM INDUSTRIAL HYGIENE ENGINEER Clinical Support [facility] Medicine Oncology [address] [place] [address] 5 [place] [address] Primary cancer of left upper lobe of lung (HCC) 06/11/2025 9:00 AM INDUSTRIAL HYGIENE ENGINEER Infusion [facility] - Infusion [address] [facility] Floor 5 [place] [address] Primary cancer of left upper lobe of lung (HCC) (Primary Dx) 06/11/2025 8:00 AM INDUSTRIAL HYGIENE ENGINEER Office Visit [facility] Medicine Oncology [address] [place] [address] 5 [place] [phone] Parisa Myers NP Primary cancer of left upper lobe of lung (HCC) (Primary Dx); Open wound of left upper arm, initial encounter 06/11/2025 7:00 AM INDUSTRIAL HYGIENE ENGINEER Clinical Support [facility] - Lab Collection [facility] 5 [place] [address] Primary cancer of left upper lobe of lung (HCC) 06/11/2025 Orders Only [facility] Medicine Oncology [address] [place] [address] 5 [place] [phone] Angel Guardado BS Primary cancer of left upper lobe of lung (HCC) (Primary Dx) 06/10/2025 11:30 AM INDUSTRIAL HYGIENE ENGINEER Office Visit [facility] [address] [place] [address] Advanced Medicine 8th [place] [address] [place] [address] Russ Siegel Chi, MD Malignant pleural effusion (HCC) (Primary Dx) 06/10/2025 9:45 AM INDUSTRIAL HYGIENE ENGINEER - 06/10/2025 11:59 PM INDUSTRIAL HYGIENE ENGINEER Hospital Encounter [facility] ([facility]) [address] [place] [phone] Malignant pleural effusion (HCC) Discharge Disposition: Discharge to home or self care 06/10/2025 8:32 AM INDUSTRIAL HYGIENE ENGINEER - 06/10/2025 11:59 PM INDUSTRIAL HYGIENE ENGINEER Hospital Encounter [facility] ([facility]) [address] [place] [address] Primary cancer of left upper lobe of lung (HCC) Discharge Disposition: Discharge to home or self care 06/10/2025 [facility] [address] [place] [address] Advanced Medicine [facility] [place] [address] [place] [address] Magdaleno Ramirez CPhT Primary cancer of left upper lobe of lung (HCC) (Primary Dx) 06/09/2025 9:55 AM INDUSTRIAL HYGIENE ENGINEER Lab [facility] [address] [place] [id number] Primary cancer of left upper lobe of lung (HCC) 06/08/2025 Results Follow-Up [facility] Medicine Oncology [address] [place] [address] 5 [place] [phone] Parisa Myers NP MRI Brain W WO Contrast 06/06/2025 2:20 PM INDUSTRIAL HYGIENE ENGINEER - 06/06/2025 11:59 PM INDUSTRIAL HYGIENE ENGINEER Hospital Encounter [facility] ([facility]) [address] [place] [address] Sea Ocampo MD Primary cancer of left upper lobe of lung (HCC) Discharge Disposition: Discharge to home or self care 06/06/2025 2:20 PM INDUSTRIAL HYGIENE ENGINEER - 06/06/2025 11:59 PM INDUSTRIAL HYGIENE ENGINEER Hospital Encounter [facility] ([facility]) [facility] [place] [address] Primary cancer of left upper lobe of lung (HCC) Discharge Disposition: Discharge to home or self care 06/06/2025 1:30 PM INDUSTRIAL HYGIENE ENGINEER Lab [facility] - Lab Collection [address] [facility] Floor 5 [place] [address] Primary cancer of left upper lobe of lung (HCC); Hypercalcemia 06/06/2025 [facility]phone [facility] [address] [place] [address] 5 [place] [address] Parisa Myers NP 06/06/2025 Orders Only [facility] Medicine Oncology [address] [place] [address] 5 [place] [address] Zahra Corley RN Primary cancer of left upper lobe of lung (HCC) (Primary Dx) 06/06/2025 [facility] 5 [place] [address] Zahar Corley RN Primary cancer of left upper lobe of lung (HCC) (Primary Dx) 06/05/2025 Orders [facility] [address] [place] [address] Floor 5 [place] [address] Zahra Corley RN Primary cancer of left upper lobe of lung (HCC) (Primary Dx); Hypercalcemia 06/04/2025 Orders [facility] [address] [place] [address] Floor 5 [place] [address] Zahra Corley RN Primary cancer of left upper lobe of lung (HCC) (Primary Dx) 06/03/2025 4:30 PM INDUSTRIAL HYGIENE ENGINEER Clinical Support [facility] - [address] [address] Primary cancer of left upper lobe of lung (HCC); Hypercalcemia 06/03/2025 2:30 PM INDUSTRIAL HYGIENE ENGINEER Infusion [facility] [address] [place] [phone] Primary cancer of left upper lobe of lung (HCC) (Primary Dx); Hypercalcemia; Malignant neoplasm metastatic to bone (HCC) 06/03/2025 Orders Only [facility] Medicine Oncology [address] [place] [phone] Zahra Corley RN 06/03/2025 Orders Only [facility] [address] [place] [phone] Zahar Corley RN 06/02/2025 2:45 PM INDUSTRIAL HYGIENE ENGINEER Lab [facility] - Lab Collection [address] [place] [address] Primary cancer of left upper lobe of lung (HCC) 06/02/2025 2:00 PM INDUSTRIAL HYGIENE ENGINEER Clinical Support [facility] [address] [place] [phone] Primary cancer of left upper lobe of lung (HCC) 06/02/2025 Telephone [facility] [address] [place] [phone] Zahra Corley, DRISS 06/02/2025 Orders Only [facility] Medicine Oncology [address] [place] [phone] Angel Guardado, ALEC Primary cancer of left upper lobe of lung (HCC) (Primary Dx) 06/02/2025 Orders Only [facility] Medicine Oncology [address] [place] [phone] Angel Guardado, ALEC Primary cancer of left upper lobe of lung (HCC) (Primary Dx) 05/30/2025 Telephone [facility] 1 [place] [address] Alisha Oakes, DRISS 05/29/2025 11:00 AM INDUSTRIAL HYGIENE ENGINEER Infusion [facility] - [facility] Floor 5 [place] [address] Primary cancer of left upper lobe of lung (HCC) (Primary Dx) 05/29/2025 10:20 AM INDUSTRIAL HYGIENE ENGINEER Office Visit [facility] Medicine Oncology [address] [facility] Floor 5 [place] [address] Sea Ocampo MD Primary cancer of left upper lobe of lung (HCC) (Primary Dx); Malignant neoplasm metastatic to bone (HCC) 05/29/2025 9:15 AM INDUSTRIAL HYGIENE ENGINEER Clinical Support [facility] - [facility] Collection [address] [facility] Floor 5 [place] [address] Malignant neoplasm metastatic to bone (HCC); Primary cancer of left upper lobe of lung (HCC) 05/29/2025 Orders Only [facility] Medicine Pulmonary [address] [facility] Medicine 8th [place] [address] [place] [address] Nataly Yoder RMA Malignant pleural effusion (HCC) (Primary Dx) 05/29/2025 Documentation [facility] 1 [place] [address] Brittany Talbert, RN 05/29/2025 Telephone Radiology 1 [place] [address] Majo Phillip RT 05/28/2025 Documentation [facility] Medicine Scheduling [facility] [place] [address] Yessi Baxter IP to OP 05/26/2025 12:00 PM INDUSTRIAL HYGIENE ENGINEER Telemedicine [facility] Outpatient Health - Palliative Care [address] [facility] [place] [address] Ness Florentino MD Palliative care encounter (Primary Dx); Metastatic non-small cell lung cancer (HCC); Primary cancer of left upper lobe of lung (HCC); Cancer associated pain; Opioid-induced constipation; High risk medication use; Dyspnea, unspecified type; Malignant pleural effusion (HCC); Advanced care planning/counseling discussion 05/21/2025 9:46 AM INDUSTRIAL HYGIENE ENGINEER - 05/21/2025 11:59 PM INDUSTRIAL HYGIENE ENGINEER Hospital Encounter [facility] 1 [place] [address] Discharge Disposition: Discharge to home or self care 05/21/2025 7:30 AM INDUSTRIAL HYGIENE ENGINEER - 05/21/2025 11:59 PM INDUSTRIAL HYGIENE ENGINEER Hospital Encounter [facility] 1 [place] [address] Russ Siegel Chi, MD Pleural effusion Discharge Disposition: Discharge to home or self care 05/21/2025 Telephone [facility]patient Health - Palliative Care [address] [place] [address] [place] [address] Aryan Tariq RN 05/21/2025 Telephone [facility] Medicine Pulmonary [address] [facility] Advanced Medicine 8th [place] [address] [place] [phone] Jana Quintanilla CMA 05/20/2025 Documentation [facility] 1 [place] [address] Janeen Wan RN 05/20/2025 Orders Only [facility] [address] [facility] Advanced Medicine 8th [place] [address] [place] [phone] Molina Stacy Pleural effusion (Primary Dx) 05/19/2025 1:06 PM INDUSTRIAL HYGIENE ENGINEER - 05/19/2025 11:59 PM INDUSTRIAL HYGIENE ENGINEER Hospital Encounter [facility] [address] [place] [address] Sea Ocampo MD Primary cancer of left upper lobe of lung (HCC) Discharge Disposition: Discharge to home or self care 05/19/2025 [facility] Initial Eligibility Review Stay [facility] [address] [place] [address] [phone] [place] [address] Denise Ware, RN 05/16/2025 Orders Only [facility] [address] [facility] Advanced Medicine 8th [place] [address] [place] [phone] Molina, Stacy Pleural effusion (Primary Dx) 05/16/2025 Telephone [facility] Primary Care at [address] [phone] Jeramie Matamoros MD 05/13/2025 Documentation [facility] Medicine Scheduling [address] [place] [address] Yessi Baxter [facility] IP to OP 05/13/2025 Telephone [facility] [address] [facility] 8th [place] [address] [place] [phone] Monica Dukes 05/12/2025 10:15 AM INDUSTRIAL HYGIENE ENGINEER - 05/16/2025 5:25 PM INDUSTRIAL HYGIENE ENGINEER Hospital Encounter [facility] 1 [place] [address] Russ Jimenez MD Chow, Kelsey Sarah, MD Jotte, Randall Stephen, MD Osman, Ali H., MD Khan, Fernando Coleman MD Collapse of left lung (Primary Dx); Malignant neoplasm of lung, unspecified laterality, unspecified part of lung (HCC); Heart failure with mildly reduced ejection fraction (HFmrEF, 41-49%); Malignant neoplasm metastatic to bone (HCC) Discharge Disposition: Discharge to home or self care 05/12/2025 Telephone [facility] Floor 6 [place] [address] Luis Velasco RN 05/08/2025 6:00 PM INDUSTRIAL HYGIENE ENGINEER Clinical Support [facility] [address] [place] [address] Floor 5 [place] [address] Research subject; Primary cancer of left upper lobe of lung (HCC) 05/08/2025 10:00 AM INDUSTRIAL HYGIENE ENGINEER Office Visit [facility] - Palliative Care [address] [place] [address] 5th Floor, [address] 6th Floor, [place] [address] Ness Florentino MD Palliative care encounter (Primary Dx); Metastatic non-small cell lung cancer (HCC); Primary cancer of left upper lobe of lung (HCC); Cancer associated pain; Metastasis to bone; High risk medication use; Opioid-induced constipation 05/08/2025 9:00 AM INDUSTRIAL HYGIENE ENGINEER Infusion [facility] - Infusion [address] Floor 5 [place] [address] Primary cancer of left upper lobe of lung (HCC) (Primary Dx); Malignant neoplasm metastatic to bone (HCC) 05/08/2025 8:00 AM INDUSTRIAL HYGIENE ENGINEER Office Visit [facility] Medicine Oncology [address] [facility] Floor 5 [place] [address] Sea Ocampo MD Primary cancer of left upper lobe of lung (HCC) (Primary Dx); Malignant neoplasm metastatic to bone (HCC) 05/08/2025 7:00 AM INDUSTRIAL HYGIENE ENGINEER Clinical Support [facility] - Lab Collection 4500 [facility] Floor 5 [place] [address] Malignant neoplasm metastatic to bone (HCC); Primary cancer of left upper lobe of lung (HCC) 05/08/2025 Orders Only [facility] [address] [facility] 5 [place] [address] Danielle Mendoza Research subject (Primary Dx); Primary cancer of left upper lobe of lung (HCC) 05/07/2025 Orders Only [facility] 5 [place] [address] Danielle Mendoza Research subject (Primary Dx); Primary cancer of left upper lobe of lung (HCC) 05/07/2025 Telephone [facility] 1 [place] [address] rOalia Zacarias RN 05/06/2025 2:30 PM INDUSTRIAL HYGIENE ENGINEER Office Visit [facility] Primary Care at [address] [address] Mariangel Cardona NP Hospital discharge follow-up (Primary Dx); Atrial flutter by electrocardiogram (HCC) 05/06/2025 Telephone [facility] 1 [place] [phone] Lina Lebron RPh 05/06/2025 Telephone [facility] [address] [facility] 8th [place] [address] [place] [phone] Nataly Yoder RMA 05/02/2025 Telephone [facility] - Palliative Care [address] [facility] [place] [address] Shelly Davidson, DRISS 05/02/2025 Telephone [facility] Medicine Oncology [facility] Floor 5 [place] [address] Zahra Corley RN 05/02/2025 SHOP/CHAP Initial Eligibility Review Stay [facility] [address] [facility] [phone] [place] [phone] Myrna Campo RN 05/01/2025 Orders Only [facility] Medicine Pulmonary [facility] 8th [place] [address] [place] [phone] Nataly Yoder RMA Recurrent pleural effusion on left (Primary Dx) 05/01/2025 Telephone [facility] Primary Care at [address] [address] Jeramie Matamoros MD BENJAMIN Questions 04/29/2025 Orders Only [facility] Medicine Oncology [facility] Floor 5 [place] [phone] Zahra Corley RN Primary cancer of left upper lobe of lung (HCC) (Primary Dx) 04/29/2025 Telephone [facility] Medicine Cardiology [address] [place] [address] [place] [address] [place] [phone] ElmerDiamond mcintoshanda 04/28/2025 8:55 AM INDUSTRIAL HYGIENE ENGINEER - 05/01/2025 4:26 PM INDUSTRIAL HYGIENE ENGINEER Hospital Encounter [facility] 1 [place] [address] Mony Aguirre MD Morgensztern, Daniel, MD Bardowell, MD Swapna Vaughan, MD Kristine Doherty, Kalia Myers MD Atrial flutter, unspecified type (HCC) (Primary Dx); Pneumonia of left lung due to infectious organism, unspecified part of lung; Cancer related pain; Primary cancer of left upper lobe of lung (HCC); Recurrent pleural effusion on left Discharge Disposition: Discharge to home or self care 04/28/2025 8:45 AM INDUSTRIAL HYGIENE ENGINEER - 04/28/2025 11:59 PM INDUSTRIAL HYGIENE ENGINEER Hospital Encounter [facility] [address] [place] [address] Discharge Disposition: Discharge to home or self care 04/28/2025 8:00 AM INDUSTRIAL HYGIENE ENGINEER Office Visit [facility] Medicine Oncology [facility] Floor 5 [place] [address] Parisa Myers NP Primary cancer of left upper lobe of lung (HCC) (Primary Dx); Malignant neoplasm metastatic to bone (HCC) 04/28/2025 7:00 AM INDUSTRIAL HYGIENE ENGINEER Clinical Support [facility] - Lab Collection 4500 [facility] Floor 5 [place] [address] Malignant neoplasm metastatic to bone (HCC); Primary cancer of left upper lobe of lung (HCC) 04/28/2025 Telephone [facility] Health - Palliative Care [address] [place] [address] Shelly Davidson, DRISS 04/25/2025 Orders Only [facility] Medicine Oncology [facility] 5 [place] [phone] Danielle Mendoza Research subject (Primary Dx); Primary cancer of left upper lobe of lung (HCC) 04/25/2025 Telephone [facility] - Palliative Care [address] [place] [address] Aryan Tariq RN 04/23/2025 Telephone [facility] 1 [place] [address] Oralia Zacarias, DRISS 04/22/2025 9:00 AM CDT Telemedicine [facility] for [facility]patient Health - Palliative Care [address] [place] [address] Primary cancer of left upper lobe of lung (HCC) (Primary Dx); Palliative care encounter; Metastasis to bone; Cancer related pain; High risk medication use; Opioid-induced constipation 04/22/2025 Telephone [facility] - Palliative Care [address] [place] [address] Shelly Davidson, DRISS 04/21/2025 12:30 PM CDT Clinical Support [facility] [address] [facility] Floor 5 [place] [address] Primary cancer of left upper lobe of lung (HCC); Research subject 04/21/2025 11:30 AM CDT Office Visit [facility] [address] [facility] 5 [place] [address] Parisa Myers NP Malignant neoplasm metastatic to bone (HCC); Primary cancer of left upper lobe of lung (HCC) 04/21/2025 11:00 AM CDT Lab [facility] Lab Collection [address] [facility] Floor 5 [place] [address] Malignant neoplasm metastatic to bone (HCC); Primary cancer of left upper lobe of lung (HCC) 04/21/2025 10:30 AM CDT Clinical Support [facility] Lab [address] [facility] 5 [place] [address] Malignant neoplasm metastatic to bone (HCC); Primary cancer of left upper lobe of lung (HCC) 04/18/2025 Orders Only [facility] 5 [place] [address] Danielle Mendoza Primary cancer of left upper lobe of lung (HCC) (Primary Dx); Research subject 04/16/2025 12:00 PM CDT Office Visit [facility], Interventional Radiology [address] [facility] [address] [place] [phone] Elvira Harris NP Metastatic non-small cell lung cancer (HCC) (Primary Dx); Malignant neoplasm metastatic to bone (HCC); Pain of left upper extremity; Arm mass, left; Radicular pain in left arm 04/16/2025 10:30 AM CDT Office Visit [facility] [address] [facility] 6th Floor, [address] [facility] [place] [address] Den Katz OD Research exam (Primary Dx) 04/16/2025 Telephone [facility] [address] [place] [phone] Zahra Corley RN 04/16/2025 Orders Only [facility] Medicine Oncology [address] [place] [address] 5 [place] [address] Zahra Corley RN Malignant neoplasm metastatic to bone (HCC) (Primary Dx); Primary cancer of left upper lobe of lung (HCC) 04/15/2025 Telephone [facility] [address] [place] [phone] Zahra Corley RN 04/14/2025 4:45 PM CDT - 04/14/2025 11:59 PM CDT Hospital Encounter [facility] [address] [place] [address] Open wound of left upper arm, initial encounter Discharge Disposition: Discharge to home or self care 04/14/2025 12:30 PM CDT Clinical Support [facility] [address] [place] [address] 5 [place] [address] Research subject; Primary cancer of left upper lobe of lung (HCC) 04/14/2025 11:00 AM CDT Office Visit [facility] Medicine Oncology [address] [place] [address] 6 [place] [address] Rosa Maria [place] NP Open wound of left upper arm, initial encounter (Primary Dx); Malignant neoplasm metastatic to bone (HCC); Primary cancer of left upper lobe of lung (HCC) 04/14/2025 10:30 AM CDT Clinical Support [facility] - Lab Collection [address] [place] [address] 6 [place] [address] Malignant neoplasm metastatic to bone (HCC); Primary cancer of left upper lobe of lung (HCC) 04/14/2025 10:00 AM CDT Clinical Support [facility] [address] [place] [address] 6 [place] [address] Malignant neoplasm metastatic to bone (HCC); Primary cancer of left upper lobe of lung (HCC) 04/11/2025 Orders Only [facility] Medicine Oncology [address] [place] [address] 5 [place] [address] Danielle Mendoza Research subject (Primary Dx); Primary cancer of left upper lobe of lung (HCC) 04/10/2025 1:30 PM CDT Clinical Support [facility] [address] [place] [address] Floor 5 [place] [address] Research subject; Primary cancer of left upper lobe of lung (HCC) 04/09/2025 Telephone [facility] Interventional Radiology [address] [facility] [address] [place] [address] eRnee Aguilera LPN 04/09/2025 Orders Only [facility] [address] [place] [address] 5 [place] [address] Zahra Corley RN Malignant neoplasm metastatic to bone (HCC) (Primary Dx); Primary cancer of left upper lobe of lung (HCC) 04/08/2025 2:30 PM CDT Clinical Support [facility] [address] [place] [address] 5 [place] [address] Research subject; Primary cancer of left upper lobe of lung (HCC) 04/08/2025 11:00 AM CDT Office Visit [facility] [address] [place] [phone] Rosa Maria [place] NP Primary cancer of left upper lobe of lung (HCC) (Primary Dx); Malignant neoplasm metastatic to bone (HCC); Metastasis to bone; Hypoxia; Pain 04/08/2025 7:30 AM CDT Clinical Support [facility] - Lab Collection [address] [place] [address] 6 [place] [address] Malignant neoplasm metastatic to bone (HCC); Primary cancer of left upper lobe of lung (HCC) 04/08/2025 Orders Only [facility] [address] [place] [address] 5 [place] [address] Zahra Corley RN Malignant neoplasm metastatic to bone (HCC) (Primary Dx); Primary cancer of left upper lobe of lung (HCC) 04/08/2025 Telephone [facility] 1 [place] [address] Betsy Redd RN 04/07/2025 6:00 PM CDT Clinical Support [facility] [address] [place] [address] 5 [place] [address] Research subject; Primary cancer of left upper lobe of lung (HCC) 04/07/2025 9:30 AM CDT Infusion [facility] - Infusion 45[address] [facility] 6 [place] [address] Primary cancer of left upper lobe of lung (HCC) (Primary Dx); Malignant neoplasm metastatic to bone (HCC) 04/07/2025 8:30 AM CDT [facility] [address] [place] [address] 6 [place] [address] Rosa Maria [place], NILTON Primary cancer of left upper lobe of lung (HCC) (Primary Dx); Malignant neoplasm metastatic to bone (HCC) 04/07/2025 7:30 AM CDT Clinical Support [facility] - Lab Collection [address] [place] [address] 6 [place] [address] Malignant neoplasm metastatic to bone (HCC); Primary cancer of left upper lobe of lung (HCC) 04/07/2025 [facility] [address] [place] [phone] Danielle Mendoza Research subject (Primary Dx); Primary cancer of left upper lobe of lung (HCC) 04/07/2025 Telephone [facility] - Palliative Care [facility] [place] [address] Shelly Davidson, DRISS 04/07/2025 Orders Only [facility] [address] [place] [address] Oralia Tilley, DRISS 04/07/2025 Orders Only [facility] [address] [place] [phone] Sea Ocampo MD 04/07/2025 Orders Only [facility] [address] [place] [phone] Zahra Corley RN 04/04/2025 Orders Only [facility] [address] [place] [phone] Danielle Mendoza Research subject (Primary Dx); Primary cancer of left upper lobe of lung (HCC) 04/02/2025 6:12 PM CDT - 04/02/2025 11:59 PM CDT Hospital Encounter [facility] - MRI 4500 [facility] Floor 8 [place] [address] Primary cancer of left upper lobe of lung (HCC); Metastatic non-small cell lung cancer (HCC); Malignant neoplasm metastatic to bone (HCC) Discharge Disposition: Discharge to home or self care 04/02/2025 3:00 PM CDT Telemedicine [facility] - Palliative Care [address] [place] [address] [place] [address] Ness Florentino MD Palliative care encounter (Primary Dx); Primary cancer of left upper lobe of lung (HCC); Metastasis to bone; Post-operative pain; Cancer related pain; High risk medication use; Opioid-induced constipation; Goals of care, counseling/discussion 04/02/2025 Telephone [facility] 1 [place] [address] Betsy Redd RN 03/31/2025 1:49 PM CDT - 03/31/2025 11:59 PM CDT Hospital Encounter [facility] [address] [place] [address] Primary cancer of left upper lobe of lung (HCC); Metastatic non-small cell lung cancer (HCC); Malignant neoplasm metastatic to bone (HCC) Discharge Disposition: Discharge to home or self care 03/31/2025 1:00 PM CDT Clinical Support [facility] Lab Collection [address] [facility] Floor 5 [place] [address] Primary cancer of left upper lobe of lung (HCC); Research subject 03/31/2025 12:30 PM CDT Clinical Support [facility] Medicine Oncology Lab [address] [facility] 5 [place] [address] Primary cancer of left upper lobe of lung (HCC); Research subject 03/31/2025 12:00 PM CDT Clinical Support [facility] Medicine Oncology [address] [facility] 5 [place] [address] Primary cancer of left upper lobe of lung (HCC); Research subject 03/31/2025 10:30 AM CDT Office Visit [facility] Medicine Ophthalmology 49[address] [facility]patient Health 6th [place] [address] Amrita Raymundo MD PhD Research exam (Primary Dx) 03/28/2025 Orders Only [facility] Floor 5 [place] [phone] Danielle Mendoza Primary cancer of left upper lobe of lung (HCC) (Primary Dx); Research subject 03/24/2025 Orders Only [facility] [address] [facility] Floor 6 [place] [address] Oralia Tilley, DRISS Primary cancer of left upper lobe of lung (HCC) (Primary Dx); Metastatic non-small cell lung cancer (HCC); Malignant neoplasm metastatic to bone (HCC) 03/21/2025 8:30 AM CDT Telemedicine [facility] Floor 1, [address] [place] [address] Chloe Yeboah PA 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) 03/21/2025 Orders Only [facility] [address] [facility] 8th [place] [address] [place] [address] Nataly Yoder, OTIS Left lower lobe pulmonary nodule (Primary Dx) 03/21/2025 Telephone [facility] [address] [place] [address] Floor 1, [address] [place] [phone] Chloe Yeboah PA 03/21/2025 Orders Only [facility] [address] [place] [address] Floor 5 [place] [address] Fara Bullock BS 03/20/2025 12:00 PM CDT Infusion [facility] Infusion [address] [place] [address] Floor 5 [place] [address] Primary cancer of left upper lobe of lung (HCC) (Primary Dx); Malignant neoplasm metastatic to bone (HCC) 03/20/2025 10:00 AM CDT Office Visit [facility] Floor 5 [place] [phone] Sea Ocampo MD Primary cancer of left upper lobe of lung (HCC) (Primary Dx); Metastasis to bone; Malignant neoplasm metastatic to bone (HCC) 03/20/2025 9:30 AM CDT Clinical Support [facility] Medicine Oncology [address] [facility] 5 [place] [address] Primary cancer of left upper lobe of lung (HCC) 03/20/2025 8:30 AM CDT Clinical Support [facility] - Lab Collection [address] [facility] 5 [place] [address] Primary cancer of left upper lobe of lung (HCC) 03/19/2025 Telephone [facility] 1 [place] [address] Betsy Redd RN 03/18/2025 2:17 PM CDT - 03/18/2025 11:59 PM CDT Hospital Encounter [facility] 1 [place] [address] Lion Kim MD Pain of left upper extremity Discharge Disposition: Discharge to home or self care 03/18/2025 Orders Only [facility] Medicine Oncology [address] [place] [phone] Benjamin Dyson CPhT Primary cancer of left upper lobe of lung (HCC) (Primary Dx) from Last 3 Months Immunizations Immunization Administration Dates Next Due Hep A / Hep B 07/19/2023, 0,10/20/2009,09/18 Influenza, Quadrivalent, Rosalie l Culture-based MDCK, Preservative Free, Antibiotic Free, Intramuscular 03/10/2023 Influenza, Quadrivalent, Spl it, Pediatric, Preservative Free, Intramuscular 03/26/2022 Influenza, Quadrivalent, Spl it, Preservative Free, Intramuscular 04/13/2021,06/09/2020,04/12/2019 Influenza, Trivalent, Cell Culture-based MDCK, Preservative Free, Antibiotic Free, Intramuscular 05/07/2024 Tdap 03/27/2021,09/18/2009 Surgical History Surgery Date Site/Laterality Comments CHOLECYSTECTOMY 2005 1989' BIOPSY DEEP BONE 10/18/2023 N/A PORT PLACEMENT CHEST >5 YEARS 10/30/2023 N/A FLUORO GUIDED INJECTION SHOULDER LEFT 07/26/2024 Lef t ARM SURGERY 06/26/2023 - 06/25/2024 Left HERNIA REPAIR US GUIDED BIOPSY LYMPH NODE SUPERFICIAL LEFT 06/10/2025 N/A Medical History Medical History Date Comments Arthritis 2020 Cancer (HCC) 08/27/2033 Hypertension 09/28/2023 Anxiety 09/16 COPD (chronic obstructive pulmonary disease) Acute hypoxic respiratory failure (HCC) 06/12/20 25 Family History Medical History Relation Name Comments Alcohol abuse Father Miles Newman Alzheimer's disease Father Miles Newman Cancer Father Miles Newman Family history of malignant neoplasm - (Added by TW Conv) Alcohol abuse Mother Parisa newman Family history of alcoholism - (Added by TW Conv) Relation Name Status Comments Father Miles Newman Mother Parisa newman Social History Tobacco Use Types Packs/Day Years Used Date Smoking Tobacco: Every Day Cigarettes 2 43 Started: 1982 Passive Smoke Exposure: Past Smokeless Tobacco: Never Tobacco Cessation:Ready to Q uit: Not Asked; Counseling Given: Not Answered Alcohol Use Standard Drinks/Week Comments Never 0 [...] 06/13/2025 How often do you attend chur or yazdanism services? Never 06/13/2025 Do you belong to any clubs o r organizations such as jainism groups, unions, fraternal or athletic groups, or [...] any time in the past 12 m [facility], were you homeless or living in a intermediate (including now)? No 06/13/2025 [facility] Utilities Answer Date Recorded In the past 12 months has th e [employer], gas, oil, or water company threatened to [...] on file Legal Sex Male 8:01 AM INDUSTRIAL HYGIENE ENGINEER Gender Identity Male 11/15/2023 6:35 PM CDT Sexual Orientation Straight 11/15/2023 6: 35 PM CDT Last Filed Vital Signs Vital Sign Reading Time Taken Comments Blood Pressure 108/73 06/13/2025 3:05 PM INDUSTRIAL HYGIENE ENGINEER Pulse 115 06/13/2025 3:05 PM INDUSTRIAL HYGIENE ENGINEER Temperature 36.9 C (98.4 F) 06/13/2025 3:05 PM INDUSTRIAL HYGIENE ENGINEER Respiratory Rate 16 06/13/2025 3:05 PM INDUSTRIAL HYGIENE ENGINEER Oxygen Saturation 100% 06/13/2025 3:05 PM INDUSTRIAL HYGIENE ENGINEER Inhaled Oxygen Concentration - - Weight 77 kg (169 lb 12.1 oz) 06/12/2025 11:27 A M INDUSTRIAL HYGIENE ENGINEER Height 190.5 cm (6' 3) 06/13/2025 12:14 AM INDUSTRIAL HYGIENE ENGINEER Body Mass Index 21.22 06/12/2025 11:27 AM INDUSTRIAL HYGIENE ENGINEER Plan of Treatment Scheduled Procedures Name Priority Associated Diagnoses Date/Ti me ESOPHAGOGASTRODUODENOSCOPY Open Access Gastric pain Health Maintenance Due Date Last Done Comments Pneumococcal vaccine <65 (1 of 2 - PCV) 1983 Regular Well Visit/Exam 18-64 02/14/2025 02/15/2024 Influenza Vaccine (#1) 2025 , 03/10/2023, 03/26/2022, Additional history exists Foot Exam 06/14/2025 06/14/2024, 06/14/2024 Albumin Creatinine Ratio, Urine 06/25/2025 06/25/2024 Hemoglobin A1C 11/09/2025 05/12/2025, 09/0 02/2025, 09/24/2024, Additional history exists Prostate Cancer Screening-PSA 02/14/2026 02/15/2024 Lipid Panel 03/04/2026 03/04/2025, 02/15/2024 Dilated Eye Exam 04/16/2026 04/16/2025, 03/31/2025 Covid-19 Vaccine (3 - Pfizer risk series) 05/05/2026 08/03/2021, 07/13/2021 Postponed from 08/31/2021 (Patient declined, but will receive in the future) Zoster Vaccine (1 of 2) 05/05/2026 Post poned from 1983 (Insurance / Financial) Depression Screening 06/11/2026 06/11/2025, 05/12/2025, 04/28/2025, Additional history exists eGFR 06/12/2026 06/12/2025, 05/26, 06/11/2025, Additional history exists DTaP/Tdap/Td Vaccine (3 - Td or Tdap) 03/27/2031 03/27/2021, 09/18/2009 Hepatitis B Screening Completed 07/19/2023 , 03/23/2010, 10/20/2009, Additional history exists Hepatitis C Screening Completed 03/31/2025 , 03/05/2025, 12/17/2024, Additional history exists Colon Cancer Screening-Colonoscopy Discontinued Medical Devices Implanted Type Area Tip Inserter Device Identifier Shelf Expiration Date Model / Serial / Lot Synthes Lcp Combi 260x13.5x4.2mm 14 Hole Limit Contact Taper End Narrow 224.641 - [id number] Implanted:Qty: 1 on 10/04/2024 by Lukas Everett MD PhD at [facility] Plate Left: Humerus Synthes 224.641 / / [employer] Simplex P Radiopaque Full Dose Cement Bone Sterile 6191-1-010 - [id number] Implanted:Qty: 1 on 10/26/2023 by Marlo Estevez MD at [facility] Left: Humerus [employer] 10/23/2025 6191-1-01 0 / / [id number] Synthes 3.5mm 2.9mm 48mm Self Tap Lock Fix Angle Low Profile Pelvis Full 212.120 - [id number] Implanted:Qty: 2 on 10/26/2023 by Marlo Estevez MD at [facility] Left: Humerus Synthes I 212.120 / / [employer] Simplex P Radiopaque Full Dose Cement Bone Sterile 6191-1-010 - [id number] Implanted:Qty: 1 on 10/26/2023 by Marlo Estevez MD at [facility] Left: Humerus [employer] 09/23/2025 6191-1-01 0 / / [id number] Synthes Lcp 229i01p6.7mm 6 Hole Shaft Proximal Long Plate Bone Stainless 241.919 - [id number] Implanted:Qty: 1 on 10/26/2023 by Marlo Estevez MD at [facility] Left: Humerus Synthes I 241.919 / / Synthes 3.5mm 2.9mm 32mm Self Tap Lock [employer] Conical Head T15 Full 212.112 - [id number] Implanted:Qty: 4 on 10/26/2023 by Marlo Estevez MD at [facility] Left: Humerus Synthes I 212.112 / / Synthes 3.5mm 2.9mm 46mm Self Tap Lock [employer] Conical Head T15 Full 212.136 - [id number] Implanted:Qty: 3 on 10/26/2023 by Marlo Estevez MD at [facility] Left: Humerus Synthes I 212.136 / / Synthes 3.5mm 2.9mm 52mm Self Tap Lock Fix Angle Low Profile Pelvis Full 212.122 - [id number] Implanted:Qty: 2 on 10/26/2023 by Marlo Estevez MD at [facility] Left: Humerus Synthes I 212.122 / / [employer] Xcela Power Port 8fr [id number] - [id number] Implanted:Qty: 1 on 10/30/2023 at [facility] [employer] 04/29/2028 [id number] / / [id number] [employer] Simplex P Radiopaque Full Dose Cement Bone Sterile 6191-1-010 - [id number] Implanted:Qty: 1 on 10/04/2024 by Lukas Everett MD PhD at [facility] Left: Humerus [employer] [id number] 02/23/2026 1 / / [id number] [employer] Simplex P Radiopaque Full Dose Cement Bone Sterile 6191-1-010 - [id number] Implanted:Qty: 1 on 10/04/2024 by Lukas Everett MD PhD at [facility] Left: Humerus [employer] [id number] 06/25/2026 1 / / [id number] [employer] Simplex P Radiopaque Full Dose Cement Bone Sterile 6191-1-010 - [id number] Implanted:Qty: 1 on 10/04/2024 by Lukas Everett MD PhD at [facility] Left: Humerus [employer] [id number] 06/25/2026 6191-1-00 1 / / [id number] Synthes 4.5mm 8mm 56mm Self Tap Large Hexagonal Socket Cortical Screw 214.856 - [id number] Implanted:Qty: 3 on 10/04/2024 by Lukas Everett MD PhD at [facility] Left: Humerus Synthes 214.856 / / Synthes 4.5mm 8mm 54mm Self Tap Large Hexagonal Socket Cortex Screw Bone 214.854 - [id number] Implanted:Qty: 1 on 10/04/2024 by Lukas Everett MD PhD at [facility] Left: Humerus Synthes 214.854 / / Synthes 4.5mm 8mm 26mm Self Tap Large Hexagonal Socket Cortex Screw Bone 214.826 - [id number] Implanted:Qty: 2 on 10/04/2024 by Lukas Everett MD PhD at [facility] Left: Humerus Synthes 214.826 / / Synthes 4.5mm 8mm 28mm Self Tap Large Hexagonal Socket Cortex Screw Bone 214.828 - [id number] Implanted:Qty: 3 on 10/04/2024 by Lukas Everett MD PhD at [facility] Left: Humerus Synthes 214.828 / / Synthes 4.5mm 8mm 34mm Self Tap Large Hexagonal Socket Cortex Screw Bone 214.834 - [id number] Implanted:Qty: 1 on 10/04/2024 by Lukas Everett MD PhD at [facility] Left: Humerus Synthes 214.834 / / Synthes 4.5mm 8mm 40mm Self Tap Large Hexagonal Socket Cortex Screw Bone 214.840 - [id number] Implanted:Qty: 1 on 10/04/2024 by Lukas Everett MD PhD at [facility] Left: Humerus Synthes 214.840 / / Synthes Plate [id number] Ss 3.5mm Screw Small Frag 18 Hole Limit 223.671 - [id number] Implanted:Qty: 1 on 10/04/2024 by Lukas Everett MD PhD at [facility] Left: Humerus Synthes I 223.671 / / Synthes 3.5mm 6mm 28mm 2.5mm Self Tap Small Hexagonal Socket Low Profile 204.828 - [id number] Implanted:Qty: 1 on 10/04/2024 by Lukas Everett MD PhD at [facility] Left: Humerus Synthes 204.828 / / Synthes 3.5mm 6mm 32mm 2.5mm Self Tap Small Hexagonal Socket Low Profile 204.832 - [id number] Implanted:Qty: 1 on 10/04/2024 by Lukas Everett MD PhD at [facility] Left: Humerus Synthes 204.832 / / Synthes 3.5mm 6mm 36mm 2.5mm Self Tap Small Hexagonal Socket Low Profile 204.836 - [id number] Implanted:Qty: 1 on 10/04/2024 by Lukas Everett MD PhD at [facility] Left: Humerus Synthes 204.836 / / Synthes 3.5mm 6mm 24mm 2.5mm Self Tap Small Hexagonal Socket Low Profile 204.824 - [id number] Implanted:Qty: 1 on 10/04/2024 by Lukas Everett MD PhD at [facility] Left: Humerus Synthes 204.824 / / Synthes 3.5mm 6mm 26mm 2.5mm Self Tap Small Hexagonal Socket Low Profile 204.826 - [id number] Implanted:Qty: 2 on 10/04/2024 by Lukas Everett MD PhD at [facility] Left: Humerus Synthes 204.826 / / Synthes 3.5mm 2.9mm 46mm Self Tap Lock [employer] Conical Head T15 Full 212.136 - [id number] Implanted:Qty: 1 on 10/04/2024 by Lukas Everett MD PhD at [facility] Left: Humerus Synthes 212.136 / / Synthes 3.5mm 2.9mm 40mm Self Tap Lock [employer] Conical Head T15 Full 212.117 - [id number] Implanted:Qty: 1 on 10/04/2024 by Lukas Everett MD PhD at [facility] Left: Humerus Synthes 212.117 / / Synthes 4.5mm 8mm 52mm Self Tap Large Hexagonal Socket Cortex Screw Bone 214.852 - [id number] Implanted:Qty: 1 on 10/04/2024 by Lukas Everett MD PhD at [facility] Left: Humerus Synthes 214.852 / / Explanted Type Area Tip Inserter Device Identifier Shelf Expiration Date Model / Serial / Lot Synthes 3.5mm 6mm 30mm 2.5mm Self Tap Small Hexagonal Socket Low Profile 204.830 - [id number] Explanted:Qty: 1 on 10/26/2023 by Marlo Estevez MD at [facility] Left: Humerus Synthes I 204.830 / / Synthes 3.5mm 2.9mm 30mm Self Tap Lock [employer] Conical Head T15 Full 212.111 - [id number] Explanted:Qty: 1 on 10/26/2023 by Marlo Estevez MD at [facility] Left: Humerus Synthes I 212.111 / / Synthes 3.5mm 2.9mm 52mm Self Tap Lock Fix Angle Low Profile Pelvis Full 212.122 - [id number] Explanted:Qty: 1 on 10/26/2023 by Marlo Estevez MD at [facility] Left: Humerus Synthes I 212.122 / / Synthes 3.5mm 2.9mm 50mm Self Tap Lock [employer] Conical Head T15 Full 212.121 - [id number] Explanted:Qty: 1 on 10/04/2024 by Lukas Everett MD PhD at [facility] Left: Humerus Synthes 212.121 / / Procedures Procedure Name Priority Date/Time Associated Diagnosis Comments POCT GLUCOSE DEVICE Routine 06/13/2025 1 :13 PM INDUSTRIAL HYGIENE ENGINEER POCT GLUCOSE DEVICE Routine 06/13/2025 1 2:49 PM INDUSTRIAL HYGIENE ENGINEER VANCOMYCIN LEVEL TROUGH Routine 06/13/2025 10:48 AM INDUSTRIAL HYGIENE ENGINEER POCT GLUCOSE DEVICE Routine 06/13/2025 8 :47 AM INDUSTRIAL HYGIENE ENGINEER POCT GLUCOSE DEVICE Routine 06/12/2025 1 1:41 PM INDUSTRIAL HYGIENE ENGINEER EGFR Routine 06/12/2025 9:19 PM INDUSTRIAL HYGIENE ENGINEER COMPREHENSIVE METABOLIC PANEL Routine 06/12/2025 9:19 PM INDUSTRIAL HYGIENE ENGINEER CALCIUM, IONIZED Routine 06/12/2025 9:19 PM INDUSTRIAL HYGIENE ENGINEER URIC ACID Routine 06/12/2025 9:19 PM INDUSTRIAL HYGIENE ENGINEER LACTATE DEHYDROGENASE Routine 06/12/2025 9:19 PM INDUSTRIAL HYGIENE ENGINEER PROTIME-INR Routine 06/12/2025 9:19 PM INDUSTRIAL HYGIENE ENGINEER APTT Routine 06/12/2025 9:19 PM INDUSTRIAL HYGIENE ENGINEER TYPE AND SCREEN Timed 06/12/2025 9:19 PM INDUSTRIAL HYGIENE ENGINEER PHOSPHORUS Timed 06/12/2025 9:19 PM INDUSTRIAL HYGIENE ENGINEER POCT GLUCOSE DEVICE Routine 06/12/2025 8 :18 PM INDUSTRIAL HYGIENE ENGINEER POCT GLUCOSE DEVICE Routine 06/12/2025 6 :19 PM INDUSTRIAL HYGI[employer] ENGINEER CT HEAD WO CONTRAST IP Routine 06/12/2025 3 :48 PM INDUSTRIAL HYGIENE ENGINEER POCT GLUCOSE DEVICE Routine 06/12/2025 1 2:10 PM INDUSTRIAL HYGIENE ENGINEER URINALYSIS AND REFLEX TO MICROSCOPIC AND CULTURE STAT 06/12/2025 9:17 AM INDUSTRIAL HYGIENE ENGINEER POCT GLUCOSE DEVICE Routine 06/12/2025 8 :05 AM INDUSTRIAL HYGIENE ENGINEER EGFR STAT 06/12/2025 5:56 AM INDUSTRIAL HYGIENE ENGINEER DIFFERENTIAL AUTO STAT 06/12/2025 5:5 6 AM INDUSTRIAL HYGIENE ENGINEER TYPE AND SCREEN STAT 06/12/2025 5:56 AM INDUSTRIAL HYGIENE ENGINEER PHOSPHORUS STAT 06/12/2025 5:56 AM INDUSTRIAL HYGIENE ENGINEER MAGNESIUM STAT 06/12/2025 5:56 AM INDUSTRIAL HYGIENE ENGINEER COMPREHENSIVE METABOLIC PANEL STAT 06/12/2025 5:56 AM INDUSTRIAL HYGIENE ENGINEER CBC WITH AUTO DIFFERENTIAL STAT 06/12/2025 5:56 AM INDUSTRIAL HYGIENE ENGINEER TROPONIN I HIGH-SENSITIVITY 6-HOUR Timed 06/12/2025 5:56 AM INDUSTRIAL HYGIENE ENGINEER ECG 12-LEAD Routine 06/12/2025 12:51 AM INDUSTRIAL HYGIENE ENGINEER TROPONIN I HIGH-SENSITIVITY 2-HOUR Timed 06/12/2025 12:50 AM INDUSTRIAL HYGI[employer] ENGINEER CT CHEST PE ABDOMEN PELVIS W CONTRAST ED 06/12/2025 12:28 AM INDUSTRIAL HYGIENE ENGINEER RESPIRATORY PATHOGEN PANEL STAT 06/11/2025 11:09 PM INDUSTRIAL HYGIENE ENGINEER POCUS CARDIAC 06/11/2025 11:01 PM INDUSTRIAL HYGIENE ENGINEER RI CRITICAL CARE ILL/INJURED PATIENT INIT 30-74 MIN Routine 06/11/2025 11:00 PM INDUSTRIAL HYGIENE ENGINEER EGFR STAT 06/11/2025 10:53 PM INDUSTRIAL HYGIENE ENGINEER DIFFERENTIAL AUTO STAT 06/11/2025 10: 53 PM INDUSTRIAL HYGIENE ENGINEER PHOSPHORUS STAT 06/11/2025 10:53 PM INDUSTRIAL HYGIENE ENGINEER CALCIUM, IONIZED STAT 06/11/2025 10:5 3 PM INDUSTRIAL HYGIENE ENGINEER MAGNESIUM STAT 06/11/2025 10:53 PM INDUSTRIAL HYGIENE ENGINEER URIC ACID STAT 06/11/2025 10:53 PM INDUSTRIAL HYGIENE ENGINEER LACTATE DEHYDROGENASE STAT 06/11/2025 10:53 PM INDUSTRIAL HYGIENE ENGINEER TROPONIN I HIGH-SENSITIVITY SERIES (BASELINE, 2HR, 4HR, 6HR) STAT 06/11/2025 10:53 PM INDUSTRIAL HYGIENE ENGINEER THYROID FUNCTION CASCADE STAT 06/11/2025 10:53 PM INDUSTRIAL HYGIENE ENGINEER SEPSIS LACTATE WITH REFLEX STAT 06/11/2025 10:53 PM INDUSTRIAL HYGIENE ENGINEER HEPATIC FUNCTION PANEL STAT 06/11/2025 10:53 PM INDUSTRIAL HYGIENE ENGINEER LIPASE STAT 06/11/2025 10:53 PM INDUSTRIAL HYGIENE ENGINEER BASIC METABOLIC PANEL STAT 06/11/2025 10:53 PM INDUSTRIAL HYGIENE ENGINEER CBC WITH AUTO DIFFERENTIAL STAT 06/11/2025 10:53 PM INDUSTRIAL HYGIENE ENGINEER BLOOD CULTURE STAT 06/11/2025 10:53 PM INDUSTRIAL HYGIENE ENGINEER BLOOD CULTURE STAT 06/11/2025 10:53 PM INDUSTRIAL HYGIENE ENGINEER XR CHEST 1 VIEW ED 06/11/2025 10:52 PM INDUSTRIAL HYGIENE ENGINEER ECG 12-LEAD STAT 06/11/2025 9:23 PM INDUSTRIAL HYGIENE ENGINEER BLOOD CULTURE Routine 06/11/2025 6:05 PM INDUSTRIAL HYGIENE ENGINEER Primary cancer of left upper lobe of lung (HCC) BLOOD CULTURE Routine 06/11/2025 6:05 PM INDUSTRIAL HYGIENE ENGINEER Primary cancer of left upper lobe of lung (HCC) SEPSIS LACTATE WITH REFLEX Routine 06/11/2025 5:50 PM INDUSTRIAL HYGIENE ENGINEER Primary cancer of left upper lobe of lung (HCC) URINALYSIS, MICROSCOPIC ONLY STAT 06/11/2025 7:25 AM INDUSTRIAL HYGIENE ENGINEER Primary cancer of left upper lobe of lung (HCC) URINALYSIS AND REFLEX TO MICROSCOPIC AND CULTURE STAT 06/11/2025 7:25 AM INDUSTRIAL HYGIENE ENGINEER Primary cancer of left upper lobe of lung (HCC) EGFR STAT 06/11/2025 7:21 AM INDUSTRIAL HYGIENE ENGINEER Primary cancer of left upper lobe of lung (HCC) DIFFERENTIAL AUTO STAT 06/11/2025 7:2 1 AM INDUSTRIAL HYGIENE ENGINEER Primary cancer of left upper lobe of lung (HCC) CBC WITH AUTO DIFFERENTIAL STAT 06/11/2025 7:21 AM INDUSTRIAL HYGIENE ENGINEER Primary cancer of left upper lobe of lung (HCC) COMPREHENSIVE METABOLIC PANEL STAT 06/11/2025 7:21 AM INDUSTRIAL HYGIENE ENGINEER Primary cancer of left upper lobe of lung (HCC) MAGNESIUM STAT 06/11/2025 7:21 AM INDUSTRIAL HYGIENE ENGINEER Primary cancer of left upper lobe of lung (HCC) PHOSPHORUS STAT 06/11/2025 7:21 AM INDUSTRIAL HYGIENE ENGINEER Primary cancer of left upper lobe of lung (HCC) URIC ACID STAT 06/11/2025 7:21 AM INDUSTRIAL HYGIENE ENGINEER Primary cancer of left upper lobe of lung (HCC) AMYLASE STAT 06/11/2025 7:21 AM INDUSTRIAL HYGIENE ENGINEER Primary cancer of left upper lobe of lung (HCC) LIPASE STAT 06/11/2025 7:21 AM INDUSTRIAL HYGIENE ENGINEER Primary cancer of left upper lobe of lung (HCC) PROTIME-INR STAT 06/11/2025 7:21 AM INDUSTRIAL HYGIENE ENGINEER Primary cancer of left upper lobe of lung (HCC) APTT STAT 06/11/2025 7:21 AM INDUSTRIAL HYGIENE ENGINEER Primary cancer of left upper lobe of lung (HCC) BILIRUBIN, DIRECT Routine 06/11/2025 7:2 1 AM INDUSTRIAL HYGIENE ENGINEER Primary cancer of left upper lobe of lung (HCC) XR CHEST PA LATERAL 2 VIEWS Schedule Routine, Read Routine (OP Routine) 06/10/2025 9:51 AM INDUSTRIAL HYGIENE ENGINEER Malignant pleural effusion (HCC) US GUIDED BIOPSY LYMPH NODE SUPERFICIAL LEFT Schedule Routine, Read Routine (OP Routine) 06/10/2025 9:35 AM INDUSTRIAL HYGIENE ENGINEER Primary cancer of left upper lobe of lung (HCC) URINALYSIS AND REFLEX TO MICROSCOPIC AND CULTURE STAT 06/09/2025 2:25 PM INDUSTRIAL HYGIENE ENGINEER Primary cancer of left upper lobe of lung (HCC) EGFR STAT 06/09/2025 10:05 AM INDUSTRIAL HYGIENE ENGINEER Primary cancer of left upper lobe of lung (HCC) DIFFERENTIAL AUTO STAT 06/09/2025 10: 05 AM INDUSTRIAL HYGIENE ENGINEER Primary cancer of left upper lobe of lung (HCC) BILIRUBIN, DIRECT Routine 06/09/2025 10: 05 AM INDUSTRIAL HYGIENE ENGINEER Primary cancer of left upper lobe of lung (HCC) APTT STAT 06/09/2025 10:05 AM INDUSTRIAL HYGIENE ENGINEER Primary cancer of left upper lobe of lung (HCC) PROTIME-INR STAT 06/09/2025 10:05 AM INDUSTRIAL HYGIENE ENGINEER Primary cancer of left upper lobe of lung (HCC) LIPASE STAT 06/09/2025 10:05 AM INDUSTRIAL HYGIENE ENGINEER Primary cancer of left upper lobe of lung (HCC) AMYLASE STAT 06/09/2025 10:05 AM INDUSTRIAL HYGIENE ENGINEER Primary cancer of left upper lobe of lung (HCC) URIC ACID STAT 06/09/2025 10:05 AM INDUSTRIAL HYGIENE ENGINEER Primary cancer of left upper lobe of lung (HCC) PHOSPHORUS STAT 06/09/2025 10:05 AM INDUSTRIAL HYGIENE ENGINEER Primary cancer of left upper lobe of lung (HCC) MAGNESIUM STAT 06/09/2025 10:05 AM INDUSTRIAL HYGIENE ENGINEER Primary cancer of left upper lobe of lung (HCC) COMPREHENSIVE METABOLIC PANEL STAT 06/09/2025 10:05 AM INDUSTRIAL HYGIENE ENGINEER Primary cancer of left upper lobe of lung (HCC) CBC WITH AUTO DIFFERENTIAL STAT 06/09/2025 10:05 AM INDUSTRIAL HYGIENE ENGINEER Primary cancer of left upper lobe of lung (HCC) MRI BRAIN W WO CONTRAST Schedule Routine, Read Routine (OP Routine) 06/06/2025 4:57 PM INDUSTRIAL HYGIENE ENGINEER Primary cancer of left upper lobe of lung (HCC) CT CHEST ABDOMEN PELVIS W CONTRAST Schedule Routine, Read Routine (OP Routine) 06/06/2025 3:48 PM INDUSTRIAL HYGIENE ENGINEER Primary cancer of left upper lobe of lung (HCC) VITAMIN D 25 HYDROXY STAT 06/06/2025 1:50 PM INDUSTRIAL HYGIENE ENGINEER Primary cancer of left upper lobe of lung (HCC) Hypercalcemia EGFR STAT 06/06/2025 1:50 PM INDUSTRIAL HYGIENE ENGINEER Primary cancer of left upper lobe of lung (HCC) Hypercalcemia BASIC METABOLIC PANEL STAT 06/06/2025 1:50 PM INDUSTRIAL HYGIENE ENGINEER Primary cancer of left upper lobe of lung (HCC) Hypercalcemia URINALYSIS, MICROSCOPIC ONLY Routine 06/03/2025 4:56 PM INDUSTRIAL HYGIENE ENGINEER Primary cancer of left upper lobe of lung (HCC) URINALYSIS AND REFLEX TO MICROSCOPIC Routine 06/03/2025 4:56 PM INDUSTRIAL HYGIENE ENGINEER Primary cancer of left upper lobe of lung (HCC) EGFR STAT 06/03/2025 4:52 PM INDUSTRIAL HYGIENE ENGINEER Primary cancer of left upper lobe of lung (HCC) Hypercalcemia BASIC METABOLIC PANEL STAT 06/03/2025 4:52 PM INDUSTRIAL HYGIENE ENGINEER Primary cancer of left upper lobe of lung (HCC) Hypercalcemia EGFR Routine 06/02/2025 2:44 PM INDUSTRIAL HYGIENE ENGINEER Primary cancer of left upper lobe of lung (HCC) DIFFERENTIAL AUTO Routine 06/02/2025 2:4 4 PM INDUSTRIAL HYGIENE ENGINEER Primary cancer of left upper lobe of lung (HCC) CBC WITH AUTO DIFFERENTIAL Routine 06/02/2025 2:44 PM INDUSTRIAL HYGIENE ENGINEER Primary cancer of left upper lobe of lung (HCC) COMPREHENSIVE METABOLIC PANEL Routine 06/02/2025 2:44 PM INDUSTRIAL HYGIENE ENGINEER Primary cancer of left upper lobe of lung (HCC) MAGNESIUM Routine 06/02/2025 2:44 PM INDUSTRIAL HYGIENE ENGINEER Primary cancer of left upper lobe of lung (HCC) PHOSPHORUS Routine 06/02/2025 2:44 PM INDUSTRIAL HYGIENE ENGINEER Primary cancer of left upper lobe of lung (HCC) URIC ACID Routine 06/02/2025 2:44 PM INDUSTRIAL HYGIENE ENGINEER Primary cancer of left upper lobe of lung (HCC) BILIRUBIN, TOTAL AND DIRECT Routine 06/02/2025 2:44 PM INDUSTRIAL HYGIENE ENGINEER Primary cancer of left upper lobe of lung (HCC) AMYLASE Routine 06/02/2025 2:44 PM INDUSTRIAL HYGIENE ENGINEER Primary cancer of left upper lobe of lung (HCC) LIPASE Routine 06/02/2025 2:44 PM INDUSTRIAL HYGIENE ENGINEER Primary cancer of left upper lobe of lung (HCC) T4, FREE Routine 06/02/2025 2:44 PM INDUSTRIAL HYGIENE ENGINEER Primary cancer of left upper lobe of lung (HCC) TSH Routine 06/02/2025 2:44 PM INDUSTRIAL HYGIENE ENGINEER Primary cancer of left upper lobe of lung (HCC) APTT Routine 06/02/2025 2:44 PM INDUSTRIAL HYGIENE ENGINEER Primary cancer of left upper lobe of lung (HCC) PROTIME-INR Routine 06/02/2025 2:44 PM INDUSTRIAL HYGIENE ENGINEER Primary cancer of left upper lobe of lung (HCC) URINALYSIS, MICROSCOPIC ONLY STAT 05/29/2025 10:25 AM INDUSTRIAL HYGIENE ENGINEER Malignant neoplasm metastatic to bone (HCC) Primary cancer of left upper lobe of lung (HCC) URINALYSIS AND REFLEX TO MICROSCOPIC AND CULTURE STAT 05/29/2025 10:25 AM INDUSTRIAL HYGIENE ENGINEER Malignant neoplasm metastatic to bone (HCC) Primary cancer of left upper lobe of lung (HCC) EGFR STAT 05/29/2025 10:14 AM INDUSTRIAL HYGIENE ENGINEER Malignant neoplasm metastatic to bone (HCC) Primary cancer of left upper lobe of lung (HCC) DIFFERENTIAL AUTO STAT 05/29/2025 10: 14 AM INDUSTRIAL HYGIENE ENGINEER Malignant neoplasm metastatic to bone (HCC) Primary cancer of left upper lobe of lung (HCC) BILIRUBIN, DIRECT Routine 05/29/2025 10: 14 AM INDUSTRIAL HYGIENE ENGINEER Malignant neoplasm metastatic to bone (HCC) Primary cancer of left upper lobe of lung (HCC) RETICULOCYTES Routine 05/29/2025 10:14 AM INDUSTRIAL HYGIENE ENGINEER Malignant neoplasm metastatic to bone (HCC) Primary cancer of left upper lobe of lung (HCC) LACTATE DEHYDROGENASE Routine 05/29/2025 10:14 AM INDUSTRIAL HYGIENE ENGINEER Malignant neoplasm metastatic to bone (HCC) Primary cancer of left upper lobe of lung (HCC) GAMMA GT STAT 05/29/2025 10:14 AM INDUSTRIAL HYGIENE ENGINEER Malignant neoplasm metastatic to bone (HCC) Primary cancer of left upper lobe of lung (HCC) LIPASE STAT 05/29/2025 10:14 AM INDUSTRIAL HYGIENE ENGINEER Malignant neoplasm metastatic to bone (HCC) Primary cancer of left upper lobe of lung (HCC) AMYLASE STAT 05/29/2025 10:14 AM INDUSTRIAL HYGIENE ENGINEER Malignant neoplasm metastatic to bone (HCC) Primary cancer of left upper lobe of lung (HCC) PHOSPHORUS STAT 05/29/2025 10:14 AM INDUSTRIAL HYGIENE ENGINEER Malignant neoplasm metastatic to bone (HCC) Primary cancer of left upper lobe of lung (HCC) MAGNESIUM STAT 05/29/2025 10:14 AM INDUSTRIAL HYGIENE ENGINEER Malignant neoplasm metastatic to bone (HCC) Primary cancer of left upper lobe of lung (HCC) COMPREHENSIVE METABOLIC PANEL STAT 05/29/2025 10:14 AM INDUSTRIAL HYGIENE ENGINEER Malignant neoplasm metastatic to bone (HCC) Primary cancer of left upper lobe of lung (HCC) CBC WITH AUTO DIFFERENTIAL STAT 05/29/2025 10:14 AM INDUSTRIAL HYGIENE ENGINEER Malignant neoplasm metastatic to bone (HCC) Primary cancer of left upper lobe of lung (HCC) RI THORACENTESIS NEEDLE/CATH PLEURA W/IMAGING Routine 05/27/2025 4:08 PM INDUSTRIAL HYGIENE ENGINEER THORACENTESIS Routine 05/21/2025 11:48 AM INDUSTRIAL HYGIENE ENGINEER Pleural effusion XR CHEST 1 VIEW IP Routine 05/21/2025 9:57 AM INDUSTRIAL HYGIENE ENGINEER CT HUMERUS LEFT W CONTRAST Schedule Routine, Read Routine (OP Routine) 05/19/2025 2:53 PM INDUSTRIAL HYGIENE ENGINEER Primary cancer of left upper lobe of lung (HCC) EGFR Routine 05/16/2025 5:10 AM INDUSTRIAL HYGIENE ENGINEER DIFFERENTIAL AUTO Routine 05/16/2025 5:1 0 AM INDUSTRIAL HYGIENE ENGINEER CALCIUM, IONIZED Routine 05/16/2025 5:10 AM INDUSTRIAL HYGIENE ENGINEER CBC WITH AUTO DIFFERENTIAL Routine 05/16/2025 5:10 AM INDUSTRIAL HYGIENE ENGINEER BASIC METABOLIC PANEL Routine 05/16/2025 5:10 AM INDUSTRIAL HYGIENE ENGINEER MAGNESIUM Routine 05/16/2025 5:10 AM INDUSTRIAL HYGIENE ENGINEER PHOSPHORUS Routine 05/16/2025 5:10 AM INDUSTRIAL HYGIENE ENGINEER APTT STAT 05/15/2025 1:58 PM INDUSTRIAL HYGIENE ENGINEER CT CHEST WO CONTRAST IP Routine 05/15/2025 1:18 PM INDUSTRIAL HYGIENE ENGINEER EGFR Routine 05/15/2025 5:44 AM INDUSTRIAL HYGIENE ENGINEER DIFFERENTIAL AUTO Routine 05/15/2025 5:4 4 AM INDUSTRIAL HYGIENE ENGINEER APTT STAT 05/15/2025 5:44 AM INDUSTRIAL HYGIENE ENGINEER CALCIUM, IONIZED Routine 05/15/2025 5:44 AM INDUSTRIAL HYGIENE ENGINEER CBC WITH AUTO DIFFERENTIAL Routine 05/15/2025 5:44 AM INDUSTRIAL HYGIENE ENGINEER BASIC METABOLIC PANEL Routine 05/15/2025 5:44 AM INDUSTRIAL HYGIENE ENGINEER MAGNESIUM Routine 05/15/2025 5:44 AM INDUSTRIAL HYGIENE ENGINEER PHOSPHORUS Routine 05/15/2025 5:44 AM INDUSTRIAL HYGIENE ENGINEER INFECTION PREVENTION LAST AURIS PCR, SURVEILLANCE Routine 05/15/2025 3:40 AM INDUSTRIAL HYGIENE ENGINEER APTT Timed 05/14/2025 10:33 PM INDUSTRIAL HYGIENE ENGINEER THORACENTESIS Routine 05/14/2025 3:10 PM INDUSTRIAL HYGIENE ENGINEER XR CHEST 1 VIEW IP Routine 05/14/2025 1:28 PM INDUSTRIAL HYGIENE ENGINEER EGFR Routine 05/14/2025 5:37 AM INDUSTRIAL HYGIENE ENGINEER DIFFERENTIAL AUTO Routine 05/14/2025 5:3 7 AM INDUSTRIAL HYGIENE ENGINEER PROTIME-INR Routine 05/14/2025 5:37 AM INDUSTRIAL HYGIENE ENGINEER CALCIUM, IONIZED Routine 05/14/2025 5:37 AM INDUSTRIAL HYGIENE ENGINEER CBC WITH AUTO DIFFERENTIAL Routine 05/14/2025 5:37 AM INDUSTRIAL HYGIENE ENGINEER BASIC METABOLIC PANEL Routine 05/14/2025 5:37 AM INDUSTRIAL HYGIENE ENGINEER MAGNESIUM Routine 05/14/2025 5:37 AM INDUSTRIAL HYGIENE ENGINEER PHOSPHORUS Routine 05/14/2025 5:37 AM INDUSTRIAL HYGIENE ENGINEER APTT STAT 05/13/2025 5:13 PM INDUSTRIAL HYGIENE ENGINEER RESPIRATORY PATHOGEN PANEL Routine 05/13/2025 5:12 PM INDUSTRIAL HYGIENE ENGINEER MRSA ONLY (STAPHYLOCOCCUS AUREUS) PCR Routine 05/13/2025 5:12 PM INDUSTRIAL HYGIENE ENGINEER APTT STAT 05/13/2025 10:57 AM INDUSTRIAL HYGIENE ENGINEER INFECTION PREVENTION LAST AURIS PCR, SURVEILLANCE Routine 05/13/2025 10:57 AM INDUSTRIAL HYGIENE ENGINEER APTT Timed 05/13/2025 4:10 AM INDUSTRIAL HYGIENE ENGINEER CALCIUM, IONIZED Routine 05/13/2025 4:10 AM INDUSTRIAL HYGIENE ENGINEER HEMOGLOBIN A1C STAT 05/12/2025 9:44 PM INDUSTRIAL HYGIENE ENGINEER APTT STAT 05/12/2025 9:44 PM INDUSTRIAL HYGIENE ENGINEER CBC WITHOUT DIFFERENTIAL STAT 05/12/2025 9:44 PM INDUSTRIAL HYGIENE ENGINEER PROTIME-INR STAT 05/12/2025 9:44 PM INDUSTRIAL HYGIENE ENGINEER TROPONIN I HIGH-SENSITIVITY 6-HOUR Timed 05/12/2025 4:50 PM INDUSTRIAL HYGIENE ENGINEER TROPONIN I HIGH-SENSITIVITY 4-HOUR Timed 05/12/2025 2:48 PM INDUSTRIAL HYGIENE ENGINEER SEPSIS LACTATE WITH REFLEX Timed 05/12/2025 2:48 PM INDUSTRIAL HYGIENE ENGINEER POCUS THORACIC (LUNG UNLTRASOUND) 05/12/2025 1:56 PM INDUSTRIAL HYGIENE ENGINEER XR SHOULDER LEFT 2 OR MORE VIEWS ED 05/12/2025 12:52 PM INDUSTRIAL HYGIENE ENGINEER XR HUMERUS LEFT 2 OR MORE VIEWS ED 05/12/2025 12:51 PM INDUSTRIAL HYGIENE ENGINEER XR RADIUS ULNA LEFT 2 VIEWS ED 05/12/2025 12:49 PM INDUSTRIAL HYGIENE ENGINEER CT CHEST PE ABDOMEN PELVIS W CONTRAST ED 05/12/2025 12:09 PM INDUSTRIAL HYGIENE ENGINEER CT HEAD AND CERVICAL SPINE WO CONTRAST ED 05/12/2025 12:09 PM INDUSTRIAL HYGIENE ENGINEER POCUS CARDIAC 05/12/2025 11:43 AM INDUSTRIAL HYGIENE ENGINEER BLOOD CULTURE STAT 05/12/2025 11:00 AM INDUSTRIAL HYGIENE ENGINEER BLOOD CULTURE STAT 05/12/2025 11:00 AM INDUSTRIAL HYGIENE ENGINEER RI CRITICAL CARE ILL/INJURED PATIENT ADDL 30 MIN Routine 05/12/2025 10:58 AM INDUSTRIAL HYGIENE ENGINEER RI CRITICAL CARE ILL/INJURED PATIENT ADDL 30 MIN Routine 05/12/2025 10:58 AM INDUSTRIAL HYGIENE ENGINEER RI CRITICAL CARE ILL/INJURED PATIENT ADDL 30 MIN Routine 05/12/2025 10:58 AM INDUSTRIAL HYGIENE ENGINEER RI CRITICAL CARE ILL/INJURED PATIENT INIT 30-74 MIN Routine 05/12/2025 10:58 AM INDUSTRIAL HYGIENE ENGINEER POCT GLUCOSE DEVICE Routine 05/12/2025 1 0:46 AM INDUSTRIAL HYGIENE ENGINEER POCT LACTATE - DEVICE Routine 05/12/2025 10:44 AM INDUSTRIAL HYGIENE ENGINEER XR CHEST 1 VIEW Critical/Life-T hreatening 05/12/2025 10:43 AM INDUSTRIAL HYGIENE ENGINEER ECG 12-LEAD STAT 05/12/2025 10:27 AM INDUSTRIAL HYGIENE ENGINEER EGFR STAT 05/12/2025 10:27 AM INDUSTRIAL HYGIENE ENGINEER DIFFERENTIAL AUTO STAT 05/12/2025 10: 27 AM INDUSTRIAL HYGIENE ENGINEER THYROID FUNCTION CASCADE STAT 05/12/2025 10:27 AM INDUSTRIAL HYGIENE ENGINEER TYPE AND SCREEN STAT 05/12/2025 10:27 AM INDUSTRIAL HYGIENE ENGINEER PROTIME-INR STAT 05/12/2025 10:27 AM INDUSTRIAL HYGIENE ENGINEER APTT STAT 05/12/2025 10:27 AM INDUSTRIAL HYGIENE ENGINEER TROPONIN I HIGH-SENSITIVITY SERIES (BASELINE, 2HR, 4HR, 6HR) STAT 05/12/2025 10:27 AM INDUSTRIAL HYGIENE ENGINEER PRO B-TYPE NATRIURETIC PEPTIDE STAT 05/12/2025 10:27 AM INDUSTRIAL HYGIENE ENGINEER SEPSIS LACTATE WITH REFLEX STAT 05/12/2025 10:27 AM INDUSTRIAL HYGIENE ENGINEER BLOOD GAS, VENOUS STAT 05/12/2025 10: 27 AM INDUSTRIAL HYGIENE ENGINEER COMPREHENSIVE METABOLIC PANEL STAT 05/12/2025 10:27 AM INDUSTRIAL HYGIENE ENGINEER CBC WITH AUTO DIFFERENTIAL STAT 05/12/2025 10:27 AM INDUSTRIAL HYGIENE ENGINEER DIFFERENTIAL AUTO STAT 05/08/2025 8:0 1 AM INDUSTRIAL HYGIENE ENGINEER Malignant neoplasm metastatic to bone (HCC) Primary cancer of left upper lobe of lung (HCC) CBC WITH AUTO DIFFERENTIAL STAT 05/08/2025 8:01 AM INDUSTRIAL HYGIENE ENGINEER Malignant neoplasm metastatic to bone (HCC) Primary cancer of left upper lobe of lung (HCC) RETICULOCYTES Routine 05/08/2025 8:01 AM INDUSTRIAL HYGIENE ENGINEER Malignant neoplasm metastatic to bone (HCC) Primary cancer of left upper lobe of lung (HCC) EGFR STAT 05/08/2025 8:00 AM INDUSTRIAL HYGIENE ENGINEER Malignant neoplasm metastatic to bone (HCC) Primary cancer of left upper lobe of lung (HCC) COMPREHENSIVE METABOLIC PANEL STAT 05/08/2025 8:00 AM INDUSTRIAL HYGIENE ENGINEER Malignant neoplasm metastatic to bone (HCC) Primary cancer of left upper lobe of lung (HCC) MAGNESIUM STAT 05/08/2025 8:00 AM INDUSTRIAL HYGIENE ENGINEER Malignant neoplasm metastatic to bone (HCC) Primary cancer of left upper lobe of lung (HCC) PHOSPHORUS STAT 05/08/2025 8:00 AM INDUSTRIAL HYGIENE ENGINEER Malignant neoplasm metastatic to bone (HCC) Primary cancer of left upper lobe of lung (HCC) AMYLASE STAT 05/08/2025 8:00 AM INDUSTRIAL HYGIENE ENGINEER Malignant neoplasm metastatic to bone (HCC) Primary cancer of left upper lobe of lung (HCC) LIPASE STAT 05/08/2025 8:00 AM INDUSTRIAL HYGIENE ENGINEER Malignant neoplasm metastatic to bone (HCC) Primary cancer of left upper lobe of lung (HCC) GAMMA GT STAT 05/08/2025 8:00 AM INDUSTRIAL HYGIENE ENGINEER Malignant neoplasm metastatic to bone (HCC) Primary cancer of left upper lobe of lung (HCC) LACTATE DEHYDROGENASE Routine 05/08/2025 8:00 AM INDUSTRIAL HYGIENE ENGINEER Malignant neoplasm metastatic to bone (HCC) Primary cancer of left upper lobe of lung (HCC) BILIRUBIN, DIRECT Routine 05/08/2025 8:0 0 AM INDUSTRIAL HYGIENE ENGINEER Malignant neoplasm metastatic to bone (HCC) Primary cancer of left upper lobe of lung (HCC) URINALYSIS AND REFLEX TO MICROSCOPIC AND CULTURE STAT 05/08/2025 7:52 AM INDUSTRIAL HYGIENE ENGINEER Malignant neoplasm metastatic to bone (HCC) Primary cancer of left upper lobe of lung (HCC) XR CHEST 1 VIEW ED Urgent/IP Urgent 05/01/2025 1:22 PM INDUSTRIAL HYGIENE ENGINEER INFECTION PREVENTION LAST AURIS PCR, SURVEILLANCE Routine 05/01/2025 11:04 AM INDUSTRIAL HYGIENE ENGINEER APTT Timed 05/01/2025 5:56 AM INDUSTRIAL HYGIENE ENGINEER APTT Timed 04/30/2025 10:13 PM INDUSTRIAL HYGIENE ENGINEER CRITICAL RESULT CALLBACK HEMATOLOGY Timed 04/30/2025 8:39 PM INDUSTRIAL HYGIENE ENGINEER EGFR Routine 04/30/2025 8:39 PM INDUSTRIAL HYGIENE ENGINEER DIFFERENTIAL AUTO Routine 04/30/2025 8:3 9 PM INDUSTRIAL HYGIENE ENGINEER APTT Timed 04/30/2025 8:39 PM INDUSTRIAL HYGIENE ENGINEER PHOSPHORUS Routine 04/30/2025 8:39 PM INDUSTRIAL HYGIENE ENGINEER MAGNESIUM Routine 04/30/2025 8:39 PM INDUSTRIAL HYGIENE ENGINEER CBC WITH AUTO DIFFERENTIAL Routine 04/30/2025 8:39 PM INDUSTRIAL HYGIENE ENGINEER BASIC METABOLIC PANEL Routine 04/30/2025 8:39 PM INDUSTRIAL HYGIENE ENGINEER APTT Timed 04/30/2025 1:48 PM INDUSTRIAL HYGIENE ENGINEER TRANSTHORACIC ECHO (TTE) COMPLETE W DOPPLER/CF WO CONTRAST ED Urgent/IP Urgent 04/30/2025 1:12 PM INDUSTRIAL HYGIENE ENGINEER CRITICAL RESULT CALLBACK HEMATOLOGY Timed 04/30/2025 11:19 AM INDUSTRIAL HYGIENE ENGINEER APTT Timed 04/30/2025 11:19 AM INDUSTRIAL HYGIENE ENGINEER APTT STAT 04/29/2025 11:31 PM INDUSTRIAL HYGIENE ENGINEER HEPATIC FUNCTION PANEL Routine 04/29/2025 5:09 PM INDUSTRIAL HYGIENE ENGINEER EGFR Routine 04/29/2025 5:09 PM INDUSTRIAL HYGIENE ENGINEER DIFFERENTIAL AUTO Routine 04/29/2025 5:0 9 PM INDUSTRIAL HYGIENE ENGINEER APTT Routine 04/29/2025 5:09 PM INDUSTRIAL HYGIENE ENGINEER PHOSPHORUS Routine 04/29/2025 5:09 PM INDUSTRIAL HYGIENE ENGINEER MAGNESIUM Routine 04/29/2025 5:09 PM INDUSTRIAL HYGIENE ENGINEER CBC WITH AUTO DIFFERENTIAL Routine 04/29/2025 5:09 PM INDUSTRIAL HYGIENE ENGINEER BASIC METABOLIC PANEL Routine 04/29/2025 5:09 PM INDUSTRIAL HYGIENE ENGINEER SENIOR STAFF REVIEW Routine 04/29/2025 3 :30 PM INDUSTRIAL HYGIENE ENGINEER CELL DIFFERENTIAL, BODY FLUID Routine 04/29/2025 3:30 PM INDUSTRIAL HYGIENE ENGINEER CHOLESTEROL, PLEURAL FLUID Routine 04/29/2025 3:30 PM INDUSTRIAL HYGIENE ENGINEER LACTATE DEHYDROGENASE, BODY FLUID Routine 04/29/2025 3:30 PM INDUSTRIAL HYGIENE ENGINEER GLUCOSE, BODY FLUID Routine 04/29/2025 3 :30 PM INDUSTRIAL HYGIENE ENGINEER PROTEIN, BODY FLUID Routine 04/29/2025 3 :30 PM INDUSTRIAL HYGIENE ENGINEER CELL COUNT W/REFLEX DIFFERENTIAL, BODY FLUID Routine 04/29/2025 3:30 PM INDUSTRIAL HYGIENE ENGINEER RI THORACENTESIS NEEDLE/CATH PLEURA W/IMAGING Routine 04/29/2025 2:51 PM INDUSTRIAL HYGIENE ENGINEER Recurrent pleural effusion on left CYTOLOGY Routine 04/29/2025 12:32 PM INDUSTRIAL HYGIENE ENGINEER POCT GLUCOSE DEVICE Routine 04/29/2025 1 2:04 PM INDUSTRIAL HYGIENE ENGINEER VANCOMYCIN LEVEL TROUGH Timed 04/29/2025 10:14 AM INDUSTRIAL HYGIENE ENGINEER BLOOD CULTURE STAT 04/29/2025 10:14 AM INDUSTRIAL HYGIENE ENGINEER BLOOD CULTURE STAT 04/29/2025 10:14 AM INDUSTRIAL HYGIENE ENGINEER AEROBIC CULTURE AND GRAM STAIN Timed 04/29/2025 10:14 AM INDUSTRIAL HYGIENE ENGINEER PROTEIN, BODY FLUID Routine 04/29/2025 9 :56 AM INDUSTRIAL HYGIENE ENGINEER LACTATE DEHYDROGENASE, BODY FLUID Routine 04/29/2025 9:56 AM INDUSTRIAL HYGIENE ENGINEER AEROBIC AND ANAEROBIC CULTURE AND GRAM STAIN Routine 04/29/2025 9:56 AM INDUSTRIAL HYGIENE ENGINEER INFECTION PREVENTION LAST AURIS PCR, SURVEILLANCE Routine 04/29/2025 9:56 AM INDUSTRIAL HYGIENE ENGINEER APTT Timed 04/29/2025 8:29 AM INDUSTRIAL HYGIENE ENGINEER POCT GLUCOSE DEVICE Routine 04/29/2025 6 :41 AM INDUSTRIAL HYGIENE ENGINEER EGFR Routine 04/28/2025 11:42 PM INDUSTRIAL HYGIENE ENGINEER DIFFERENTIAL AUTO Routine 04/28/2025 11: 42 PM INDUSTRIAL HYGIENE ENGINEER PHOSPHORUS Routine 04/28/2025 11:42 PM INDUSTRIAL HYGIENE ENGINEER MAGNESIUM Routine 04/28/2025 11:42 PM INDUSTRIAL HYGIENE ENGINEER CBC WITH AUTO DIFFERENTIAL Routine 04/28/2025 11:42 PM INDUSTRIAL HYGIENE ENGINEER BASIC METABOLIC PANEL Routine 04/28/2025 11:42 PM INDUSTRIAL HYGIENE ENGINEER APTT STAT 04/28/2025 11:42 PM INDUSTRIAL HYGIENE ENGINEER INFECTION PREVENTION MRSA ONLY (STAPHYLOCOCCUS AUREUS) PCR Routine 04/28/2025 11:42 PM INDUSTRIAL HYGIENE ENGINEER POCT GLUCOSE DEVICE Routine 04/28/2025 8 :01 PM INDUSTRIAL HYGIENE ENGINEER POCT GLUCOSE DEVICE Routine 04/28/2025 5 :39 PM INDUSTRIAL HYGIENE ENGINEER ECG 12-LEAD Routine 04/28/2025 3:15 PM INDUSTRIAL HYGIENE ENGINEER ECG 12-LEAD Routine 04/28/2025 2:04 PM INDUSTRIAL HYGIENE ENGINEER URINALYSIS AND REFLEX TO MICROSCOPIC AND CULTURE STAT 04/28/2025 12:57 PM INDUSTRIAL HYGIENE ENGINEER RI CRITICAL CARE ILL/INJURED PATIENT INIT 30-74 MIN Routine 04/28/2025 11:53 AM INDUSTRIAL HYGIENE ENGINEER TROPONIN I HIGH-SENSITIVITY 2-HOUR Timed 04/28/2025 11:33 AM INDUSTRIAL HYGIENE ENGINEER BLOOD CULTURE STAT 04/28/2025 11:33 AM INDUSTRIAL HYGIENE ENGINEER BLOOD CULTURE STAT 04/28/2025 11:33 AM INDUSTRIAL HYGIENE ENGINEER CT CHEST PE W CONTRAST ED 04/28/2025 10:55 AM INDUSTRIAL HYGIENE ENGINEER DIFFERENTIAL AUTO STAT 04/28/2025 10: 35 AM INDUSTRIAL HYGIENE ENGINEER CBC WITH AUTO DIFFERENTIAL STAT 04/28/2025 10:35 AM INDUSTRIAL HYGIENE ENGINEER SEPSIS LACTATE WITH REFLEX STAT 04/28/2025 10:35 AM INDUSTRIAL HYGIENE ENGINEER POCT GLUCOSE DEVICE Routine 04/28/2025 9 :24 AM INDUSTRIAL HYGIENE ENGINEER EGFR STAT 04/28/2025 9:12 AM INDUSTRIAL HYGIENE ENGINEER MAGNESIUM STAT 04/28/2025 9:12 AM INDUSTRIAL HYGIENE ENGINEER PROTIME-INR STAT 04/28/2025 9:12 AM INDUSTRIAL HYGIENE ENGINEER APTT STAT 04/28/2025 9:12 AM INDUSTRIAL HYGIENE ENGINEER TROPONIN I HIGH-SENSITIVITY SERIES (BASELINE, 2HR, 4HR, 6HR) STAT 04/28/2025 9:12 AM INDUSTRIAL HYGIENE ENGINEER THYROID FUNCTION CASCADE STAT 04/28/2025 9:12 AM INDUSTRIAL HYGIENE ENGINEER PRO B-TYPE NATRIURETIC PEPTIDE STAT 04/28/2025 9:12 AM INDUSTRIAL HYGIENE ENGINEER COMPREHENSIVE METABOLIC PANEL STAT 04/28/2025 9:12 AM INDUSTRIAL HYGIENE ENGINEER RESPIRATORY PATHOGEN PANEL STAT 04/28/2025 9:12 AM INDUSTRIAL HYGIENE ENGINEER EGFR STAT 04/28/2025 7:16 AM INDUSTRIAL HYGIENE ENGINEER Malignant neoplasm metastatic to bone (HCC) Primary cancer of left upper lobe of lung (HCC) DIFFERENTIAL AUTO STAT 04/28/2025 7:1 6 AM INDUSTRIAL HYGIENE ENGINEER Malignant neoplasm metastatic to bone (HCC) Primary cancer of left upper lobe of lung (HCC) CBC WITH AUTO DIFFERENTIAL STAT 04/28/2025 7:16 AM INDUSTRIAL HYGIENE ENGINEER Malignant neoplasm metastatic to bone (HCC) Primary cancer of left upper lobe of lung (HCC) COMPREHENSIVE METABOLIC PANEL STAT 04/28/2025 7:16 AM INDUSTRIAL HYGIENE ENGINEER Malignant neoplasm metastatic to bone (HCC) Primary cancer of left upper lobe of lung (HCC) MAGNESIUM STAT 04/28/2025 7:16 AM INDUSTRIAL HYGIENE ENGINEER Malignant neoplasm metastatic to bone (HCC) Primary cancer of left upper lobe of lung (HCC) PHOSPHORUS STAT 04/28/2025 7:16 AM INDUSTRIAL HYGIENE ENGINEER Malignant neoplasm metastatic to bone (HCC) Primary cancer of left upper lobe of lung (HCC) AMYLASE STAT 04/28/2025 7:16 AM INDUSTRIAL HYGIENE ENGINEER Malignant neoplasm metastatic to bone (HCC) Primary cancer of left upper lobe of lung (HCC) LIPASE STAT 04/28/2025 7:16 AM INDUSTRIAL HYGIENE ENGINEER Malignant neoplasm metastatic to bone (HCC) Primary cancer of left upper lobe of lung (HCC) GAMMA GT STAT 04/28/2025 7:16 AM INDUSTRIAL HYGIENE ENGINEER Malignant neoplasm metastatic to bone (HCC) Primary cancer of left upper lobe of lung (HCC) LACTATE DEHYDROGENASE Routine 04/28/2025 7:16 AM INDUSTRIAL HYGIENE ENGINEER Malignant neoplasm metastatic to bone (HCC) Primary cancer of left upper lobe of lung (HCC) RETICULOCYTES Routine 04/28/2025 7:16 AM INDUSTRIAL HYGIENE ENGINEER Malignant neoplasm metastatic to bone (HCC) Primary cancer of left upper lobe of lung (HCC) BILIRUBIN, DIRECT Routine 04/28/2025 7:1 6 AM INDUSTRIAL HYGIENE ENGINEER Malignant neoplasm metastatic to bone (HCC) Primary cancer of left upper lobe of lung (HCC) URINALYSIS AND REFLEX TO MICROSCOPIC AND CULTURE STAT 04/28/2025 7:02 AM INDUSTRIAL HYGIENE ENGINEER Malignant neoplasm metastatic to bone (HCC) Primary cancer of left upper lobe of lung (HCC) EGFR Routine 04/21/2025 10:45 AM CDT Malignant neoplasm metastatic to bone (HCC) Primary cancer of left upper lobe of lung (HCC) DIFFERENTIAL AUTO Routine 04/21/2025 10: 45 AM CDT Malignant neoplasm metastatic to bone (HCC) Primary cancer of left upper lobe of lung (HCC) CBC WITH AUTO DIFFERENTIAL Routine 04/21/2025 10:45 AM CDT Malignant neoplasm metastatic to bone (HCC) Primary cancer of left upper lobe of lung (HCC) COMPREHENSIVE METABOLIC PANEL Routine 04/21/2025 10:45 AM CDT Malignant neoplasm metastatic to bone (HCC) Primary cancer of left upper lobe of lung (HCC) MAGNESIUM Routine 04/21/2025 10:45 AM CDT Malignant neoplasm metastatic to bone (HCC) Primary cancer of left upper lobe of lung (HCC) PHOSPHORUS Routine 04/21/2025 10:45 AM CDT Malignant neoplasm metastatic to bone (HCC) Primary cancer of left upper lobe of lung (HCC) AMYLASE Routine 04/21/2025 10:45 AM CDT Malignant neoplasm metastatic to bone (HCC) Primary cancer of left upper lobe of lung (HCC) LIPASE Routine 04/21/2025 10:45 AM CDT Malignant neoplasm metastatic to bone (HCC) Primary cancer of left upper lobe of lung (HCC) GAMMA GT Routine 04/21/2025 10:45 AM CDT Malignant neoplasm metastatic to bone (HCC) Primary cancer of left upper lobe of lung (HCC) LACTATE DEHYDROGENASE Routine 04/21/2025 10:45 AM CDT Malignant neoplasm metastatic to bone (HCC) Primary cancer of left upper lobe of lung (HCC) RETICULOCYTES Routine 04/21/2025 10:45 AM CDT Malignant neoplasm metastatic to bone (HCC) Primary cancer of left upper lobe of lung (HCC) BILIRUBIN, DIRECT Routine 04/21/2025 10: 45 AM CDT Malignant neoplasm metastatic to bone (HCC) Primary cancer of left upper lobe of lung (HCC) AEROBIC AND ANAEROBIC CULTURE AND GRAM STAIN Routine 04/14/2025 4:45 PM CDT Open wound of left upper arm, initial encounter EGFR Routine 04/14/2025 10:20 AM CDT Malignant neoplasm metastatic to bone (HCC) Primary cancer of left upper lobe of lung (HCC) DIFFERENTIAL AUTO Routine 04/14/2025 10: 20 AM CDT Malignant neoplasm metastatic to bone (HCC) Primary cancer of left upper lobe of lung (HCC) BILIRUBIN, DIRECT Routine 04/14/2025 10: 20 AM CDT Malignant neoplasm metastatic to bone (HCC) Primary cancer of left upper lobe of lung (HCC) RETICULOCYTES Routine 04/14/2025 10:20 AM CDT Malignant neoplasm metastatic to bone (HCC) Primary cancer of left upper lobe of lung (HCC) LACTATE DEHYDROGENASE Routine 04/14/2025 10:20 AM CDT Malignant neoplasm metastatic to bone (HCC) Primary cancer of left upper lobe of lung (HCC) GAMMA GT Routine 04/14/2025 10:20 AM CDT Malignant neoplasm metastatic to bone (HCC) Primary cancer of left upper lobe of lung (HCC) LIPASE Routine 04/14/2025 10:20 AM CDT Malignant neoplasm metastatic to bone (HCC) Primary cancer of left upper lobe of lung (HCC) AMYLASE Routine 04/14/2025 10:20 AM CDT Malignant neoplasm metastatic to bone (HCC) Primary cancer of left upper lobe of lung (HCC) PHOSPHORUS Routine 04/14/2025 10:20 AM CDT Malignant neoplasm metastatic to bone (HCC) Primary cancer of left upper lobe of lung (HCC) MAGNESIUM Routine 04/14/2025 10:20 AM CDT Malignant neoplasm metastatic to bone (HCC) Primary cancer of left upper lobe of lung (HCC) COMPREHENSIVE METABOLIC PANEL Routine 04/14/2025 10:20 AM CDT Malignant neoplasm metastatic to bone (HCC) Primary cancer of left upper lobe of lung (HCC) CBC WITH AUTO DIFFERENTIAL Routine 04/14/2025 10:20 AM CDT Malignant neoplasm metastatic to bone (HCC) Primary cancer of left upper lobe of lung (HCC) URINALYSIS, MICROSCOPIC ONLY Routine 04/14/2025 10:15 AM CDT Malignant neoplasm metastatic to bone (HCC) Primary cancer of left upper lobe of lung (HCC) URINALYSIS AND REFLEX TO MICROSCOPIC AND CULTURE Routine 04/14/2025 10:15 AM CDT Malignant neoplasm metastatic to bone (HCC) Primary cancer of left upper lobe of lung (HCC) DIFFERENTIAL AUTO Routine 04/08/2025 7:4 9 AM CDT Malignant neoplasm metastatic to bone (HCC) Primary cancer of left upper lobe of lung (HCC) CBC WITH AUTO DIFFERENTIAL Routine 04/08/2025 7:49 AM CDT Malignant neoplasm metastatic to bone (HCC) Primary cancer of left upper lobe of lung (HCC) RETICULOCYTES Routine 04/08/2025 7:49 AM CDT Malignant neoplasm metastatic to bone (HCC) Primary cancer of left upper lobe of lung (HCC) URINALYSIS AND REFLEX TO MICROSCOPIC AND CULTURE STAT 04/07/2025 7:36 AM CDT Malignant neoplasm metastatic to bone (HCC) Primary cancer of left upper lobe of lung (HCC) EGFR STAT 04/07/2025 7:31 AM CDT Malignant neoplasm metastatic to bone (HCC) Primary cancer of left upper lobe of lung (HCC) DIFFERENTIAL AUTO STAT 04/07/2025 7:3 1 AM CDT Malignant neoplasm metastatic to bone (HCC) Primary cancer of left upper lobe of lung (HCC) CBC WITH AUTO DIFFERENTIAL STAT 04/07/2025 7:31 AM CDT Malignant neoplasm metastatic to bone (HCC) Primary cancer of left upper lobe of lung (HCC) COMPREHENSIVE METABOLIC PANEL STAT 04/07/2025 7:31 AM CDT Malignant neoplasm metastatic to bone (HCC) Primary cancer of left upper lobe of lung (HCC) MAGNESIUM STAT 04/07/2025 7:31 AM CDT Malignant neoplasm metastatic to bone (HCC) Primary cancer of left upper lobe of lung (HCC) PHOSPHORUS STAT 04/07/2025 7:31 AM CDT Malignant neoplasm metastatic to bone (HCC) Primary cancer of left upper lobe of lung (HCC) AMYLASE STAT 04/07/2025 7:31 AM CDT Malignant neoplasm metastatic to bone (HCC) Primary cancer of left upper lobe of lung (HCC) LIPASE STAT 04/07/2025 7:31 AM CDT Malignant neoplasm metastatic to bone (HCC) Primary cancer of left upper lobe of lung (HCC) GAMMA GT STAT 04/07/2025 7:31 AM CDT Malignant neoplasm metastatic to bone (HCC) Primary cancer of left upper lobe of lung (HCC) LACTATE DEHYDROGENASE Routine 04/07/2025 7:31 AM CDT Malignant neoplasm metastatic to bone (HCC) Primary cancer of left upper lobe of lung (HCC) RETICULOCYTES Routine 04/07/2025 7:31 AM CDT Malignant neoplasm metastatic to bone (HCC) Primary cancer of left upper lobe of lung (HCC) BILIRUBIN, DIRECT Routine 04/07/2025 7:3 1 AM CDT Malignant neoplasm metastatic to bone (HCC) Primary cancer of left upper lobe of lung (HCC) MRI BRAIN W WO CONTRAST Schedule Routine, Read Routine (OP Routine) 04/02/2025 7:12 PM CDT Primary cancer of left upper lobe of lung (HCC) Metastatic non-small cell lung cancer (HCC) Malignant neoplasm metastatic to bone (HCC) CT HUMERUS LEFT W CONTRAST Schedule Routine, Read Routine (OP Routine) 03/31/2025 3:01 PM CDT Primary cancer of left upper lobe of lung (HCC) Metastatic non-small cell lung cancer (HCC) Malignant neoplasm metastatic to bone (HCC) CT CHEST ABDOMEN PELVIS W CONTRAST Schedule Routine, Read Routine (OP Routine) 03/31/2025 3:01 PM CDT Primary cancer of left upper lobe of lung (HCC) Metastatic non-small cell lung cancer (HCC) Malignant neoplasm metastatic to bone (HCC) URINALYSIS, MICROSCOPIC ONLY Routine 03/31/2025 1:18 PM CDT Primary cancer of left upper lobe of lung (HCC) Research subject URINALYSIS AND REFLEX TO MICROSCOPIC Routine 03/31/2025 1:18 PM CDT Primary cancer of left upper lobe of lung (HCC) Research subject EGFR Routine 03/31/2025 1:09 PM CDT Primary cancer of left upper lobe of lung (HCC) Research subject DIFFERENTIAL AUTO Routine 03/31/2025 1:0 9 PM CDT Primary cancer of left upper lobe of lung (HCC) Research subject CBC WITH AUTO DIFFERENTIAL Routine 03/31/2025 1:09 PM CDT Primary cancer of left upper lobe of lung (HCC) Research subject RETICULOCYTES Routine 03/31/2025 1:09 PM CDT Primary cancer of left upper lobe of lung (HCC) Research subject PROTIME-INR Routine 03/31/2025 1:09 PM CDT Primary cancer of left upper lobe of lung (HCC) Research subject APTT Routine 03/31/2025 1:09 PM CDT Primary cancer of left upper lobe of lung (HCC) Research subject TSH Routine 03/31/2025 1:09 PM CDT Primary cancer of left upper lobe of lung (HCC) Research subject T4, FREE Routine 03/31/2025 1:09 PM CDT Primary cancer of left upper lobe of lung (HCC) Research subject COMPREHENSIVE METABOLIC PANEL Routine 03/31/2025 1:09 PM CDT Primary cancer of left upper lobe of lung (HCC) Research subject AMYLASE Routine 03/31/2025 1:09 PM CDT Primary cancer of left upper lobe of lung (HCC) Research subject CRP (ACUTE PHASE) Routine 03/31/2025 1:0 9 PM CDT Primary cancer of left upper lobe of lung (HCC) Research subject GAMMA GT Routine 03/31/2025 1:09 PM CDT Primary cancer of left upper lobe of lung (HCC) Research subject LACTATE DEHYDROGENASE Routine 03/31/2025 1:09 PM CDT Primary cancer of left upper lobe of lung (HCC) Research subject LIPASE Routine 03/31/2025 1:09 PM CDT Primary cancer of left upper lobe of lung (HCC) Research subject MAGNESIUM Routine 03/31/2025 1:09 PM CDT Primary cancer of left upper lobe of lung (HCC) Research subject PHOSPHORUS Routine 03/31/2025 1:09 PM CDT Primary cancer of left upper lobe of lung (HCC) Research subject BILIRUBIN, DIRECT Routine 03/31/2025 1:0 9 PM CDT Primary cancer of left upper lobe of lung (HCC) Research subject HEPATITIS B SURFACE ANTIGEN Routine 03/31/2025 1:09 PM CDT Primary cancer of left upper lobe of lung (HCC) Research subject HEPATITIS C ANTIBODY Routine 03/31/2025 1:09 PM CDT Primary cancer of left upper lobe of lung (HCC) Research subject EGFR Routine 03/20/2025 9:07 AM CDT Primary cancer of left upper lobe of lung (HCC) T4, FREE Routine 03/20/2025 9:07 AM CDT Primary cancer of left upper lobe of lung (HCC) DIFFERENTIAL AUTO Routine 03/20/2025 9:0 7 AM CDT Primary cancer of left upper lobe of lung (HCC) COMPREHENSIVE METABOLIC PANEL Routine 03/20/2025 9:07 AM CDT Primary cancer of left upper lobe of lung (HCC) CBC WITH AUTO DIFFERENTIAL Routine 03/20/2025 9:07 AM CDT Primary cancer of left upper lobe of lung (HCC) RETICULOCYTES Routine 03/20/2025 9:07 AM CDT Primary cancer of left upper lobe of lung (HCC) BILIRUBIN, DIRECT Routine 03/20/2025 9:0 7 AM CDT Primary cancer of left upper lobe of lung (HCC) MAGNESIUM Routine 03/20/2025 9:07 AM CDT Primary cancer of left upper lobe of lung (HCC) PHOSPHORUS Routine 03/20/2025 9:07 AM CDT Primary cancer of left upper lobe of lung (HCC) AMYLASE Routine 03/20/2025 9:07 AM CDT Primary cancer of left upper lobe of lung (HCC) LIPASE Routine 03/20/2025 9:07 AM CDT Primary cancer of left upper lobe of lung (HCC) FERRITIN Routine 03/20/2025 9:07 AM CDT Primary cancer of left upper lobe of lung (HCC) CRP (ACUTE PHASE) Routine 03/20/2025 9:0 7 AM CDT Primary cancer of left upper lobe of lung (HCC) URIC ACID Routine 03/20/2025 9:07 AM CDT Primary cancer of left upper lobe of lung (HCC) LACTATE DEHYDROGENASE Routine 03/20/2025 9:07 AM CDT Primary cancer of left upper lobe of lung (HCC) THYROID FUNCTION CASCADE Routine 03/20/2025 9:07 AM CDT Primary cancer of left upper lobe of lung (HCC) APTT Routine 03/20/2025 9:07 AM CDT Primary cancer of left upper lobe of lung (HCC) PROTIME-INR Routine 03/20/2025 9:07 AM CDT Primary cancer of left upper lobe of lung (HCC) IR INJECTION ANESTHETIC AGENT STELLATE GANGLION Schedule Routine, Read Routine (OP Routine) 03/18/2025 4:14 PM CDT Pain of left upper extremity LIPID PANEL Routine 03/04/2025 9:40 PM CDT ALBUMIN CREATININE RATIO, URINE Routine 06/25/2024 8:46 AM INDUSTRIAL [employer]GI[employer] ENGINEER Hypertension associated with diabetes (HCC) PSA SCREEN Routine 02/15/2024 11:20 AM CDT Screening for malignant neoplasm of prostate from Last 3 Months or Most Recently Relevant to Health Maintenance Results * POCT glucose (06/13/2025 1:13 PM INDUSTRIAL HYGIENE ENGINEER) Glucose, POC 98 70 - 199 mg/dL Blood 06/13/2025 1:13 PM INDUSTRIAL HYGIENE ENGINEER 06/13/2025 1:13 PM INDUSTRIAL HYGIENE ENGINEER us Homar Husain MD PhD LAB POCT ORDERABLES - DEVICE F inal Result Performing Organization Address [facility] de Phone Number [facility] [place] [address] * POCT glucose (06/13/2025 12:49 PM INDUSTRIAL HYGIENE ENGINEER) Glucose, POC 98 70 - 199 mg/dL Blood 06/13/2025 12:4 9 PM INDUSTRIAL HYGIENE ENGINEER 06/13/2025 12:49 PM INDUSTRIAL HYGIENE ENGINEER us Homar Husain MD PhD LAB POCT ORDERABLES - DEVICE F inal Result Performing Organization Address [facility] de Phone Number [facility] [place] [address] * (ABNORMAL) Vancomycin level trough Draw trough 30 minutes prior to 4th dose. (06/13/2025 10:48 AM INDUSTRIAL HYGIENE ENGINEER) Vancomycin trough 8.7(L) 10.0 - 20.0 mcg/mL Blood 06/13/2025 10:4 8 AM INDUSTRIAL HYGIENE ENGINEER 06/13/2025 11:08 AM INDUSTRIAL HYGIENE ENGINEER Narrative [facility] - 06/13/2025 11:47 AM INDUSTRIAL HYGIENE ENGINEER Draw trough 30 minutes prior to 4th dose. us Neil Jon MD LAB BLOOD ORDERABLES Final Resul t Performing Organization Address [facility] de Phone Number [facility] [place] [address] * (ABNORMAL) POCT glucose (06/13/2025 8:47 AM INDUSTRIAL HYGIENE ENGINEER) Glucose, POC 245(H) 70 - 199 mg/dL Blood 06/13/2025 8:47 AM INDUSTRIAL HYGIENE ENGINEER 06/13/2025 8:47 AM INDUSTRIAL HYGIENE ENGINEER Homar Husain MD PhD LAB POCT ORDERABLES - DEVICE F inal Result Performing Organization Address [facility] Co de Phone Number [facility] [place] [address] * POCT glucose (06/12/2025 11:41 PM INDUSTRIAL HYGIENE ENGINEER) Glucose, POC 108 70 - 199 mg/dL Blood 06/12/2025 11:4 1 PM INDUSTRIAL HYGIENE ENGINEER 06/12/2025 11:41 PM INDUSTRIAL HYGIENE ENGINEER Neil Jon MD LAB POCT ORDERABLES - DEVICE Fin al Result Performing Organization Address [facility] Phone Number [facility] [place] [address] * eGFR (06/12/2025 9:19 PM INDUSTRIAL HYGIENE ENGINEER) eGFR >90 >=60 mL/min/1. 73 m2 Comment: Interpretive Data Reference Interval Normal >/= 90 mL/min/1.73m2 Mildly decreased* 60 - 89 mL/min/1.73m2 Mildly to moderately decreased 45 - 59 mL/min/1.73m2 Moderately to severely decreased 30 - 44 mL/min/1.73m2 Severely decreased 15 - 29 mL/min/1.73m2 Kidney Failure < 15 mL/min/1.73m2 *Relative to young adult level Estimated glomerular filtration rate is determined by the 2020 CKD-EPI equation recommended by the National Kidney Foundation (A Unifying Approach to GFR Estimation: Recommendations of the NKF-ASK Task Force on Reassessing the Inclusion of Race in Diagnosing Kidney Disease, JASN 2020). The CKD-EPI equation should not be used for patients with unstable renal function and has not been validated in children and those over 70. Current interpretive data was last reviewed 2021. Blood 06/12/2025 9:19 PM INDUSTRIAL HYGIENE ENGINEER 06/12/2025 9:45 PM INDUSTRIAL HYGIENE ENGINEER us Janeen MEJIA LAB BLOOD ORDERABLES Fi nal Result Performing Organization Address [facility] de Phone Number [facility] [place] [address] * (ABNORMAL) Calcium, ionized (06/12/2025 9:19 PM INDUSTRIAL HYGIENE ENGINEER) Calcium, Ionized 5.70(H) 4.50 - 5.10 mg/dL Blood 06/12/2025 9:19 PM INDUSTRIAL HYGIENE ENGINEER 06/12/2025 9:29 PM INDUSTRIAL HYGIENE ENGINEER Janeen MEJIA LAB BLOOD ORDERABLES Fi nal Result Performing Organization Address [facility] de Phone Number [facility] [place] [address] * aPTT (06/12/2025 9:19 PM INDUSTRIAL HYGIENE ENGINEER) aPTT 31 26 - 38 sec Comment: No clot detected in sample - [id number] - 06/12/25, 9:54 PM Interpretive Data Heparin therapeutic range: 66.0 - 100.0 seconds. Range based on correlation with therapeutic heparin activity range of 0.3 - 0.7 Units/mL. Blood 06/12/2025 9:19 PM INDUSTRIAL HYGIENE ENGINEER 06/12/2025 9:37 PM INDUSTRIAL HYGIENE ENGINEER Abner Wray MD LAB BLOOD ORDERABLES F inal Result Performing Organization Address [facility] Co de Phone Number [facility] [place] [address] * (ABNORMAL) Protime-INR (06/12/2025 9:19 PM INDUSTRIAL HYGIENE ENGINEER) PT 15.4(H) 10.2 - 13.5 sec INR 1.37(H) 0.90 - 1.20 [facility] Comment: Interpretive data Oral anticoagulant therapeutic ranges: Venous thromboembolism prophylaxis or treatment: 2.0-3.0 CARDIOLOGY Standard range: 2.0-3.0 High-intensity range: 2.5-3.5 Refer to indication-specific guidelines for appropriate target ranges for prosthetic heart valve replacement. Current interpretive data was last revised on 2019. Blood 06/12/2025 9:19 PM INDUSTRIAL HYGIENE ENGINEER 06/12/2025 9:37 PM INDUSTRIAL HYGIENE ENGINEER Abner Wray MD LAB BLOOD ORDERABLES F inal Result Performing Organization Address City/[facility] Co de Phone Number [facility] [place] [address] * Type and screen (06/12/2025 9:19 PM INDUSTRIAL HYGIENE ENGINEER) Marcus, indirect Negative ABO Rh O Positive [facility] Blood 06/12/2025 9:19 PM INDUSTRIAL HYGIENE ENGINEER 06/12/2025 9:35 PM INDUSTRIAL HYGIENE ENGINEER Narrative [facility] - 06/12/2025 10:30 PM INDUSTRIAL HYGIENE ENGINEER Has the patient had Daratumumab or Isatuximab in the past 6 months?->Unknown us Abner Wray MD LAB BLOOD BANK TEST OR DERABLES Final Result Performing Organization Address [facility] Co de Phone Number [facility] [place] [address] * Uric acid (06/12/2025 9:19 PM INDUSTRIAL HYGIENE ENGINEER) Uric acid 3.8 3.0 - 8.0 mg/dL Blood 06/12/2025 9:19 PM INDUSTRIAL HYGIENE ENGINEER 06/12/2025 9:29 PM INDUSTRIAL HYGIENE ENGINEER us Abner Wray MD LAB BLOOD ORDERABLES F inal Result Performing Organization Address [facility] Co de Phone Number [facility] [place] [address] * (ABNORMAL) Phosphorus (06/12/2025 9:19 PM INDUSTRIAL HYGIENE ENGINEER) [facility] Phosphorus, pl 1.6(L) 2.3 - 4.5 mg/dL Blood 06/12/2025 9:1 9 PM INDUSTRIAL HYGIENE ENGINEER 06/12/2025 9:29 PM INDUSTRIAL HYGIENE ENGINEER Abner Wray MD LAB BLOOD ORDERABLES F inal Result Performing Organization Address City/[facility] Co de Phone Number [facility] [place] [address] * (ABNORMAL) Lactate dehydrogenase (LD) (06/12/2025 9:19 PM INDUSTRIAL HYGIENE ENGINEER) [facility] Lactate dehydrogenase (LDH) 343(H) 100 - 250 Units/L Blood 06/12/2025 9:19 PM INDUSTRIAL HYGIENE ENGINEER 06/12/2025 9:29 PM INDUSTRIAL HYGIENE ENGINEER Abner Wray MD LAB BLOOD ORDERABLES F inal Result Performing Organization Address [facility] de Phone Number [facility] [place] [address] * (ABNORMAL) Comprehensive metabolic panel (06/12/2025 9:19 PM INDUSTRIAL HYGIENE ENGINEER) [facility] Sodium 128(L) 135 - 145 mmol/L Potassium, pl 4.1 3.3 - 4.9 mmol/L [facility] Chloride 93(L) 97 - 110 mmol/L [facility] CO2 24 22 - 32 mmol/L [facility] Anion gap 11 2 - 15 mmol/L [facility] BUN 10 6 - 25 mg/dL [facility] Creatinine 0.68(L) 0.80 - 1.30 mg/dL [facility] Glucose 94 70 - 199 mg/dL [facility] Comment: Interpretive Data Fasting glucose >/= 126 mg/dl is diagnostic for diabetes. Fasting is defined as no caloric intake for at least 8 hours. Fasting glucose between 100 mg/dl to 125 mg/dl is diagnostic of prediabetes. In a patient with classic symptoms of hyperglycemia or hyperglycemic crisis, a random glucose >/= 200 mg/dl is diagnostic for diabetes. In the absence of unequivocal hyperglycemia, results should be confirmed by repeat testing. The classification and Diagnosis of Diabetes Diabetes Care 202; 46: S19-S40. Current interpretive data was last revised 2022. Calcium 10.3 8.5 - 10.3 mg/dL [facility] Bilirubin, total 0.4 0.1 - 1.2 mg/dL [facility] Protein, pl 6.5 6.5 - 8.5 g/dL [facility] Albumin 2.7(L) 3.5 - 5.0 g/dL [facility] Alk phos 68 40 - 130 Units/L [facility] ALT 10 7 - 55 Units/L [facility] AST 22 10 - 50 Units/L [facility] Blood 06/12/2025 9:19 PM INDUSTRIAL HYGIENE ENGINEER 06/12/2025 9:29 PM INDUSTRIAL HYGIENE ENGINEER us Janeen MEJIA LAB BLOOD ORDERABLES Fi nal Result Performing Organization Address City/[facility]/ZIP Co de Phone Number [facility] Department of [employer] [place], [place] [id number] * POCT glucose (06/12/2025 8:18 PM INDUSTRIAL HYGIENE ENGINEER) Glucose, POC 116 70 - 199 mg/dL Blood 06/12/2025 8:18 PM INDUSTRIAL HYGIENE ENGINEER 06/12/2025 8:18 PM INDUSTRIAL HYGIENE ENGINEER us Neil Jon MD LAB POCT ORDERABLES - DEVICE Fin al Result Performing Organization Address City/[facility]/ZIP Co de Phone Number [facility] [place] [address] * POCT glucose (06/12/2025 6:19 PM INDUSTRIAL HYGIENE ENGINEER) Glucose, POC 97 70 - 199 mg/dL Blood 06/12/2025 6:19 PM INDUSTRIAL HYGIENE ENGINEER 06/12/2025 6:19 PM INDUSTRIAL HYGIENE ENGINEER us Neil Jon MD LAB POCT ORDERABLES - DEVICE Fin al Result [facility] [place] [address] * CT Head WO Contrast (06/12/2025 3:48 PM INDUSTRIAL HYGIENE ENGINEER) Anatomical Region Laterality Modality Head and Neck N/A Computed Tomogra phy 06/12/2025 4:09 PM INDUSTRIAL HYGIENE ENGINEER Impressions 06/12/2025 4:47 PM INDUSTRIAL HYGIENE ENGINEER No acute intracranial process. Dictated by: Tye Wilson M.D. The radiology attending physician has personally reviewed this study, and had reviewed and/or edited this written report and agrees with it. Electronically signed by: Carlos Alberto Martin M.D. Narrative 06/12/2025 4:47 PM INDUSTRIAL HYGIENE ENGINEER EXAMINATION: CT head without contrast HISTORY: Mental status change TECHNIQUE: CT of the head was performed with images acquired from skull base to vertex without intravenous contrast. COMPARISON: MRI brain June 06, 2025, April 02, [address] May 12, 2025 FINDINGS: There is no acute intracranial hemorrhage. There is unchanged rounded hyperdense lesion involving the left middle frontal gyrus. Redemonstrated is a right middle fossa cyst posteriorly displacing the temporal pole. Ventricles are of normal size and morphology. No mass effect or midline shift is present. The saldivar-white matter differentiation is normal. The visualized portions of the orbits are normal. The mastoid air cells are normal. The visualized portions of the paranasal sinuses are normal. No fractures are identified. Procedure Note Carlos Alberto Martin MD - 06/12/2025 EXAMINATION: CT head without contrast HISTORY: Mental status change TECHNIQUE: CT of the head was performed with images acquired from skull base to vertex without intravenous contrast. COMPARISON: MRI brain June 06, 2025, April 02, [address] May 12, 2025 FINDINGS: There is no acute intracranial hemorrhage. There is unchanged rounded hyperdense lesion involving the left middle frontal gyrus. Redemonstrated is a right middle fossa cyst posteriorly displacing the temporal pole. Ventricles are of normal size and morphology. No mass effect or midline shift is present. The saldivar-white matter differentiation is normal. The visualized portions of the orbits are normal. The mastoid air cells are normal. The visualized portions of the paranasal sinuses are normal. No fractures are identified. IMPRESSION: No acute intracranial process. Dictated by: Tye Wilson M.D. The radiology attending physician has personally reviewed this study, and had reviewed and/or edited this written report and agrees with it. Electronically signed by: Carlos Alberto Martin M.D. us Janeen MEJIA IMG CT PROCEDURES Final Result * POCT glucose (06/12/2025 12:10 PM INDUSTRIAL HYGIENE ENGINEER) Glucose, POC 101 70 - 199 mg/dL Blood 06/12/2025 12:1 0 PM INDUSTRIAL HYGIENE ENGINEER 06/12/2025 12:10 PM INDUSTRIAL HYGIENE ENGINEER Neil Jon MD LAB POCT ORDERABLES - DEVICE Fin al Result [facility] [place] [address] * (ABNORMAL) Urinalysis reflex to microscopic and culture Urine (06/12/2025 9:17 AM INDUSTRIAL HYGIENE ENGINEER) Color, ur Straw Yellow Clarity, ur Clear Clear [facility] Specific gravity, ur 1.024 1.003 - 1.030 [facility] pH, urine 6.0 [facility] Comment: Interpretive Data U rine pH is affected by diet, medications, systemic acid-base disturbances, and renal tubular function. pH may affect urinary stone formation. For example, urine pH below 6.0 may help reduce the tendency for calcium phosphate stones and pH greater than 6.0 may reduce the tendency for uric acid stone formation. Source: Andre [employer] Current Interpretive Data was last revised on 2017 Protein, ur ql Trace Negative [facility] Glucose, ur ql 4+(A) Negative [facility] Ketones, ur Negative Negative [facility] Bilirubin, ur Negative Negative [facility] Blood, ur Negative Negative [facility] Urobilinogen, ur <2.0 <2.0 mg/dL [facility] Nitrite, ur Negative Negative [facility] Leukocyte esterase, ur Negative Negative [facility] UA reflex comment Reflex conditions for microscopic UA and culture not met. [facility] Urine 06/12/2025 9:17 AM INDUSTRIAL HYGIENE ENGINEER 06/12/2025 9:23 AM INDUSTRIAL HYGIENE ENGINEER us Abner Wray MD LAB MICROBIOLOGY - GEN ERAL ORDERABLES Final Result Performing Organization Address City/[facility]/ZIP Co de Phone Number [facility] [place] [address] * POCT glucose (06/12/2025 8:05 AM INDUSTRIAL HYGIENE ENGINEER) Pathologist [facility] Glucose, POC 101 70 - 199 mg/dL Blood 06/12/2025 8:05 AM INDUSTRIAL HYGIENE ENGINEER 06/12/2025 8:05 AM INDUSTRIAL HYGIENE ENGINEER us Neil Jon MD LAB POCT ORDERABLES - DEVICE Fin al Result Performing Organization Address [facility] Co de Phone Number [facility] [place] [address] * (ABNORMAL) Troponin I high-sensitivity 6-hour (06/12/2025 5:56 AM INDUSTRIAL HYGIENE ENGINEER) Trop I hs 80(H) <=35 ng/L Comment: Interpretive Data For further hscTnI resources including the diagnostic algorithm and an aid in interpretation, copy and paste this link: [email or web address]/[email or web address] Current Interpretive Data last revised 2020. Trop I hs delta See Comment ng/L [facility] Comment:Inappropriate collec tion time to report a delta. Trop I hs pct delta See Comment % [facility] Comment:Inappropriate collec tion time to report a delta. Trop I hs interp See Comment [facility] Comment:Inappropriate collec tion time to report a delta. Blood 06/12/2025 5:56 AM INDUSTRIAL HYGIENE ENGINEER 06/12/2025 6:11 AM INDUSTRIAL HYGIENE ENGINEER Bentley Arzate MD LAB BLOOD ORDERABLES Fin al Result Performing Organization Address [facility] Co de Phone Number [facility] [place] [address] * eGFR (06/12/2025 5:56 AM INDUSTRIAL HYGIENE ENGINEER) eGFR >90 >=60 mL/min/1. 73 m2 Comment: Interpretive Data Reference Interval Normal >/= 90 mL/min/1.73m2 Mildly decreased* 60 - 89 mL/min/1.73m2 Mildly to moderately decreased 45 - 59 mL/min/1.73m2 Moderately to severely decreased 30 - 44 mL/min/1.73m2 Severely decreased 15 - 29 mL/min/1.73m2 Kidney Failure < 15 mL/min/1.73m2 *Relative to young adult level Estimated glomerular filtration rate is determined by the 2020 CKD-EPI equation recommended by the National Kidney Foundation (A Unifying Approach to GFR Estimation: Recommendations of the NKF-ASK Task Force on Reassessing the Inclusion of Race in Diagnosing Kidney Disease, JASN 2020). The CKD-EPI equation should not be used for patients with unstable renal function and has not been validated in children and those over 70. Current interpretive data was last reviewed 2021. Blood 06/12/2025 5:56 AM INDUSTRIAL HYGIENE ENGINEER 06/12/2025 6:11 AM INDUSTRIAL HYGIENE ENGINEER Abner Wray MD LAB BLOOD ORDERABLES F inal Result Performing Organization Address [facility] Co de Phone Number [facility] [place] [address] * (ABNORMAL) Differential, auto (06/12/2025 5:56 AM INDUSTRIAL HYGIENE ENGINEER) Neutrophil abs 8.30(H) 1.50 - 6.50 K/cumm Imm gran abs 0.05 0.00 - 0.10 K/cumm [facility] Lymphocyte abs 0.09(L) 0.80 - 3.30 K/cumm [facility] Monocyte abs 0.26 0.20 - 0.80 K/cumm [facility] Eosinophil abs 0.27 0.00 - 0.50 K/cumm [facility] Basophil abs 0.03 0.00 - 0.10 K/cumm [facility] Neutrophil pct 92.2 % [facility] Comment: Interpretive Data Percent cell count reference ranges are not reported, since discordance with absolute values may lead to misinterpretation of CBC data. Current Interpretive Data was last revised on 2017. Imm gran pct 0.6 % [facility] Comment: Interpretive Data Percent cell count reference ranges are not reported, since discordance with absolute values may lead to misinterpretation of CBC data. Current Interpretive Data was last revised on 2017. Lymphocyte pct 1.0 % [facility] Comment: Interpretive Data Percent cell count reference ranges are not reported, since discordance with absolute values may lead to misinterpretation of CBC data. Current Interpretive Data was last revised on 2017. Monocyte pct 2.9 % [facility] Comment: Interpretive Data Percent cell count reference ranges are not reported, since discordance with absolute values may lead to misinterpretation of CBC data. Current Interpretive Data was last revised on 2017. Eosinophil pct 3.0 % [facility] Comment: Interpretive Data Percent cell count reference ranges are not reported, since discordance with absolute values may lead to misinterpretation of CBC data. Current Interpretive Data was last revised on 2017. Basophil pct 0.3 % [facility] Comment: Interpretive Data Percent cell count reference ranges are not reported, since discordance with absolute values may lead to misinterpretation of CBC data. Current Interpretive Data was last revised on 2017. Blood 06/12/2025 5:56 AM INDUSTRIAL HYGIENE ENGINEER 06/12/2025 6:11 AM INDUSTRIAL HYGIENE ENGINEER Abner Wray MD LAB BLOOD ORDERABLES F inal Result Performing Organization Address City/State/[facility] Co de Phone Number [facility] [place] [address] * (ABNORMAL) CBC with auto differential (06/12/2025 5:56 AM INDUSTRIAL HYGIENE ENGINEER) Pathologist [facility] WBC 9.00 3.80 - 9.90 K/cumm Hgb 12.8(L) 13.0 - 17.5 g/dL [facility] Hct 41.8 38.9 - 50.3 % [facility] Plt 210 150 - 400 K/cumm [facility] MPV 8.7(L) 9.1 - 12.3 fL [facility] RBC 5.52 4.30 - 5.80 M/cumm [facility] MCV 75.7(L) 81.3 - 96.4 fL [facility] MCH 23.2(L) 27.1 - 33.3 pg [facility] MCHC 30.6(L) 32.3 - 35.7 g/dL [facility] RDW CV 21.2(H) 11.1 - 14.9 % [facility] RDW SD 56.6(H) 35.7 - 48.1 fL [facility] NRBC abs 0.00 0.00 - 0.01 K/cumm [facility] Blood 06/12/2025 5:56 AM INDUSTRIAL HYGIENE ENGINEER 06/12/2025 6:11 AM INDUSTRIAL HYGIENE ENGINEER Abner Wray MD LAB BLOOD ORDERABLES F inal Result Performing Organization Address City/[facility] Co de Phone Number [facility] [place] [address] * Type and screen (06/12/2025 5:56 AM INDUSTRIAL HYGIENE ENGINEER) Pathologist [facility] Marcus, indirect Negative ABO Rh O Positive [facility] Blood 06/12/2025 5:56 AM INDUSTRIAL HYGIENE ENGINEER 06/12/2025 6:25 AM INDUSTRIAL HYGIENE ENGINEER Narrative [facility] - 06/12/2025 7:29 AM INDUSTRIAL HYGIENE ENGINEER Has the patient had Daratumumab or Isatuximab in the past 6 months?->Unknown Abner Wray MD LAB BLOOD BANK TEST OR DERABLES Final Result Performing Organization Address [facility] de Phone Number [facility] [place] [address] * Phosphorus (06/12/2025 5:56 AM INDUSTRIAL HYGIENE ENGINEER) [facility] Phosphorus, pl 2.5 2.3 - 4.5 mg/dL Blood 06/12/2025 5:56 AM INDUSTRIAL HYGIENE ENGINEER 06/12/2025 6:11 AM INDUSTRIAL HYGIENE ENGINEER Abner Wray MD LAB BLOOD ORDERABLES F inal Result Performing Organization Address [facility] Phone Number [facility] [place] [address] * Magnesium (06/12/2025 5:56 AM INDUSTRIAL HYGIENE ENGINEER) [facility] Magnesium 1.8 1.4 - 2.5 mg/dL Blood 06/12/2025 5:56 AM INDUSTRIAL HYGIENE ENGINEER 06/12/2025 6:11 AM INDUSTRIAL HYGIENE ENGINEER Abner Wray MD LAB BLOOD ORDERABLES F inal Result Performing Organization Address [facility] de Phone Number [facility] [place] [address] * (ABNORMAL) Comprehensive metabolic panel (06/12/2025 5:56 AM INDUSTRIAL HYGIENE ENGINEER) [facility] Sodium 133(L) 135 - 145 mmol/L Potassium, pl 4.7 3.3 - 4.9 mmol/L [facility] Chloride 100 97 - 110 mmol/L [facility] CO2 24 22 - 32 mmol/L [facility] Anion gap 9 2 - 15 mmol/L [facility] BUN 10 6 - 25 mg/dL [facility] Creatinine 0.66(L) 0.80 - 1.30 mg/dL [facility] Glucose 96 70 - 199 mg/dL [facility] Comment: Interpretive Data Fasting glucose >/= 126 mg/dl is diagnostic for diabetes. Fasting is defined as no caloric intake for at least 8 hours. Fasting glucose between 100 mg/dl to 125 mg/dl is diagnostic of prediabetes. In a patient with classic symptoms of hyperglycemia or hyperglycemic crisis, a random glucose >/= 200 mg/dl is diagnostic for diabetes. In the absence of unequivocal hyperglycemia, results should be confirmed by repeat testing. The classification and Diagnosis of Diabetes Diabetes Care 202; 46: S19-S40. Current interpretive data was last revised 2022. Calcium 10.2 8.5 - 10.3 mg/dL [facility] Bilirubin, total 0.3 0.1 - 1.2 mg/dL [facility] Protein, pl 6.0(L) 6.5 - 8.5 g/dL [facility] Albumin 2.4(L) 3.5 - 5.0 g/dL [facility] Alk phos 67 40 - 130 Units/L [facility] ALT 13 7 - 55 Units/L [facility] AST 22 10 - 50 Units/L [facility] Blood 06/12/2025 5:56 AM INDUSTRIAL HYGIENE ENGINEER 06/12/2025 6:11 AM INDUSTRIAL HYGIENE ENGINEER Abner Wray MD LAB BLOOD ORDERABLES F inal Result Performing Organization Address City/State/[facility] Co de Phone Number [facility] [place] [address] * ECG 12-LEAD (06/12/2025 12:51 AM INDUSTRIAL HYGIENE ENGINEER) Narrative [facility] - 06/12/2025 12:51 AM INDUSTRIAL HYGIENE ENGINEER Howard Sylvester MD PhD 06/12/2025 12:55 AM ECG 12 lead Date/Time: 06/12/2025 12:51 AM Performed by: Howard Sylvester MD PhD Authorized by: Bentley Arzate MD Rate: ECG rate: 93 ECG rate assessment: normal Rhythm: Rhythm: sinus rhythm Ectopy: Ectopy: none QRS: QRS axis: Normal QRS intervals: Normal Conduction: Conduction: abnormal Abnormal conduction: non-specific intraventricular conduction delay ST segments: ST segments: Normal T waves: T waves: inverted Inverted: III, aVF, V3 and V4 Previous ECG: Previous ECG: Compared to current Date of previous EC06/11/2025 Similarity: No change Interpretation: Interpretation: No significant change Recommended Follow-up: Recommended follow up: further workup in the ED Bentley Arzate MD ECG ORDERABLES Final Re sult Performing Organization Address [facility] Co de Phone Number [facility] * (ABNORMAL) Troponin I high-sensitivity 2-hour (06/12/2025 12:50 AM INDUSTRIAL HYGIENE ENGINEER) Trop I hs 134(H) <=35 ng/L Comment: Interpretive Data For further hscTnI resources including the diagnostic algorithm and an aid in interpretation, copy and paste this link: [email or web address] Current Interpretive Data last revised 2020. Trop I hs pct delta -8 % [facility] Trop I hs interp Equivocal [facility] Blood 06/12/2025 12:5 0 AM INDUSTRIAL HYGIENE ENGINEER 06/12/2025 1:04 AM INDUSTRIAL HYGIENE ENGINEER Bentley Arzate MD LAB BLOOD ORDERABLES Fin al Result Performing Organization Address [facility] de Phone Number [facility] [place] [address] * CT Chest PE (CTA) Abdomen Pelvis W Contrast (06/12/2025 12:28 AM INDUSTRIAL HYGIENE ENGINEER) Anatomical Region Laterality Modality Body N/A Computed Tomogra phy 06/12/2025 12:4 7 AM INDUSTRIAL HYGIENE ENGINEER Impressions 06/12/2025 2:38 PM INDUSTRIAL HYGIENE ENGINEER 1. No pulmonary embolism. 2. Similar extent of metastatic disease involving the left lung hilum with obstructive left lung collapse, small malignant pleural effusion, multifocal pleural nodules, mediastinal and left axillary lymphadenopathy, erosive right first rib mass, bilateral renal lesions, indeterminant left adrenal nodule and peritoneal soft tissue deposits. 3. Hypoattenuation within the collapsed left lung may represent infiltration with tumor and/or superimposed infectious pneumonia, incompletely evaluated due to arterial phase of contrast. However, grossly similar in appearance compared to prior exam. Dictated by: Elvira Timmons MD, PhD. The radiology attending physician has personally reviewed this study, and had reviewed and/or edited this written report and agrees with it. Electronically signed by: Abner Chang M.D. Narrative 06/12/2025 2:38 PM INDUSTRIAL HYGIENE ENGINEER EXAMINATION: CT CHEST PE (CTA) ABDOMEN PELVIS W CONTRAST HISTORY: 59-year-old male with a history of left upper lobe lung cancer with osseous metastases, malignant pleural effusions post Pleurx on the left side presenting with hypotension and confusion after receiving new infusion of chemotherapy. TECHNIQUE: Computed tomographic images were acquired using a chest angiographic protocol optimized for pulmonary embolism. Computed tomographic examination of the abdomen and pelvis with intravenous contrast was performed using a standard protocol. Contrast enhanced transaxial images were obtained following the intravenous administration of 93 ml of nonionic contrast. Multiplanar reformatted images and three-dimensional images were obtained on the 3-D workstation and sent to the PACS archival system. COMPARISON: Comparison is made to prior CT dated 06/06/2025. FINDINGS: No pulmonary embolism. CT imaging evidence of right heart strain: No CHEST: Partially imaged left internal carotid artery atherosclerosis. Unchanged large infiltrative mass centered at the left lung hilum encasing and obstructing left mainstem bronchus. This is difficult to measure due to arterial phase of contrast. There is unchanged complete collapse of the left lung. Regions of hypoattenuation throughout the collapsed lung are unchanged. The tumor is again noted to occlude the left lower pulmonary vein at its ostium. Left pleural nodularity is better appreciated on prior dated 06/06/2025. Small left malignant pleural effusion. Pleurx drain in the left lung base. The right lung is well-aerated. No right pleural effusion or pneumothorax. Right lower lobe mucus plugging. Enlarged mediastinal and left axillary lymph nodes are unchanged. For reference, a paratracheal lymph node measures 2.9 cm (series 5, image 148). A left axillary lymph node measures 3.6 cm (series 5, image 161). Evaluation of the lung parenchyma is partially limited by patient motion. The right lung is clear. The heart size is normal. There is no pericardial effusion. Right internal jugular chest port catheter tip terminates at the inferior cavoatrial junction. ABDOMEN PELVIS: The hepatic parenchyma is unremarkable. There is no intrahepatic or extra hepatic biliary duct dilation. The gallbladder is surgically absent. The portal, splenic, and superior mesenteric veins are patent. Hypoattenuating splenic lesions are unchanged. 1.8 cm left adrenal nodule is unchanged. The right adrenal gland is normal. The pancreas is unremarkable. Bilateral infiltrative metastatic lesions throughout both kidneys are similar compared to prior there is no hydronephrosis or obstructive nephrolithiasis. The urinary bladder is distended. The prostate is present. The stomach and duodenal sweep are unremarkable. The small bowel is decompressed. There is no bowel obstruction. Diverticulosis without diverticulitis. The appendix is normal. Prominent retroperitoneal lymph nodes are unchanged. For reference, a left para-aortic lymph node on series 7, image 90 measures 1.5 cm. Omental soft tissue deposit in the right upper quadrant measures 1.7 cm (series 7, image 99). Multiple additional intraperitoneal nodules appear unchanged. Calcified and noncalcified severe atherosclerotic plaque of the abdominal aorta and its branching vessels. Degenerative changes of the spine. Stepwise retrolisthesis of L1-L4. Erosive changes of the right anterior first rib, unchanged. Small amount of osteonecrosis of the right femoral head. Right back lipoma. Unchanged left posterior third and fourth rib fractures. Procedure Note Abner Chang MD - 06/12/2025 EXAMINATION: CT CHEST PE (CTA) ABDOMEN PELVIS W CONTRAST HISTORY: 59-year-old male with a history of left upper lobe lung cancer with osseous metastases, malignant pleural effusions post Pleurx on the left side presenting with hypotension and confusion after receiving new infusion of chemotherapy. TECHNIQUE: Computed tomographic images were acquired using a chest angiographic protocol optimized for pulmonary embolism. Computed tomographic examination of the abdomen and pelvis with intravenous contrast was performed using a standard protocol. Contrast enhanced transaxial images were obtained following the intravenous administration of 93 ml of nonionic contrast. Multiplanar reformatted images and three-dimensional images were obtained on the 3-D workstation and sent to the PACS archival system. COMPARISON: Comparison is made to prior CT dated 06/06/2025. FINDINGS: No pulmonary embolism. CT imaging evidence of right heart strain: No CHEST: Partially imaged left internal carotid artery atherosclerosis. Unchanged large infiltrative mass centered at the left lung hilum encasing and obstructing left mainstem bronchus. This is difficult to measure due to arterial phase of contrast. There is unchanged complete collapse of the left lung. Regions of hypoattenuation throughout the collapsed lung are unchanged. The tumor is again noted to occlude the left lower pulmonary vein at its ostium. Left pleural nodularity is better appreciated on prior dated 06/06/2025. Small left malignant pleural effusion. Pleurx drain in the left lung base. The right lung is well-aerated. No right pleural effusion or pneumothorax. Right lower lobe mucus plugging. Enlarged mediastinal and left axillary lymph nodes are unchanged. For reference, a paratracheal lymph node measures 2.9 cm (series 5, image 148). A left axillary lymph node measures 3.6 cm (series 5, image 161). Evaluation of the lung parenchyma is partially limited by patient motion. The right lung is clear. The heart size is normal. There is no pericardial effusion. Right internal jugular chest port catheter tip terminates at the inferior cavoatrial junction. ABDOMEN PELVIS: The hepatic parenchyma is unremarkable. There is no intrahepatic or extra hepatic biliary duct dilation. The gallbladder is surgically absent. The portal, splenic, and superior mesenteric veins are patent. Hypoattenuating splenic lesions are unchanged. 1.8 cm left adrenal nodule is unchanged. The right adrenal gland is normal. The pancreas is unremarkable. Bilateral infiltrative metastatic lesions throughout both kidneys are similar compared to prior there is no hydronephrosis or obstructive nephrolithiasis. The urinary bladder is distended. The prostate is present. The stomach and duodenal sweep are unremarkable. The small bowel is decompressed. There is no bowel obstruction. Diverticulosis without diverticulitis. The appendix is normal. Prominent retroperitoneal lymph nodes are unchanged. For reference, a left para-aortic lymph node on series 7, image 90 measures 1.5 cm. Omental soft tissue deposit in the right upper quadrant measures 1.7 cm (series 7, image 99). Multiple additional intraperitoneal nodules appear unchanged. Calcified and noncalcified severe atherosclerotic plaque of the abdominal aorta and its branching vessels. Degenerative changes of the spine. Stepwise retrolisthesis of L1-L4. Erosive changes of the right anterior first rib, unchanged. Small amount of osteonecrosis of the right femoral head. Right back lipoma. Unchanged left posterior third and fourth rib fractures. IMPRESSION: 1. No pulmonary embolism. 2. Similar extent of metastatic disease involving the left lung hilum with obstructive left lung collapse, small malignant pleural effusion, multifocal pleural nodules, mediastinal and left axillary lymphadenopathy, erosive right first rib mass, bilateral renal lesions, indeterminant left adrenal nodule and peritoneal soft tissue deposits. 3. Hypoattenuation within the collapsed left lung may represent infiltration with tumor and/or superimposed infectious pneumonia, incompletely evaluated due to arterial phase of contrast. However, grossly similar in appearance compared to prior exam. Dictated by: Elvira Timmons MD, PhD. The radiology attending physician has personally reviewed this study, and had reviewed and/or edited this written report and agrees with it. Electronically signed by: Abner Chang M.D. Bentley Arzate MD IMG CT PROCEDURES Final Result * Respiratory pathogen panel Nasopharyngeal (06/11/2025 11:09 PM INDUSTRIAL HYGIENE ENGINEER) Pathologist [facility] Influenza A RNA Not Detected Not Detected Influenza B RNA Not Detected Not Detected [facility] RSV RNA Not Detected Not Detected [facility] COVID-19 RNA Not Detected Not Detected [facility] Coronavirus 229E RNA Not Detected Not Detected [facility] Coronavirus HKU1 RNA Not Detected Not Detected [facility] Coronavirus NL63 RNA Not Detected Not Detected [facility] Coronavirus OC43 RNA Not Detected Not Detected [facility] Adenovirus DNA Not Detected Not Detected [facility] Metapneumovirus RNA Not Detected Not Detected [facility] Rhinovirus/Enterov irus RNA Not Detected Not Detected [facility] Parainfluenza 1 RNA Not Detected Not Detected [facility] Parainfluenza 2 RNA Not Detected Not Detected [facility] Parainfluenza 3 RNA Not Detected Not Detected [facility] Parainfluenza 4 RNA Not Detected Not Detected [facility] B. pertussis DNA Not Detected Not Detected [facility] B. parapertussis DNA Not Detected Not Detected [facility] C. pneumoniae DNA Not Detected Not Detected [facility] M. pneumoniae DNA Not Detected Not Detected [facility] Nasopharyngeal 06/11/2025 11 :09 PM INDUSTRIAL HYGIENE ENGINEER 06/11/2025 11:15 PM INDUSTRIAL HYGIENE ENGINEER Simran [facility] - 06/12/2025 12:31 AM INDUSTRIAL HYGIENE ENGINEER Is the Patient experiencing symptoms consistent with COVID?->Yes Surveillance testing for transplant patient?->No Interpretive Data The [employer] FilmArray Respiratory Panel (RP2.1) assay is a multiplexed real-time PCR based nucleic acid test capable of simultaneous qualitative detection and identification of multiple respiratory viral and bacterial nucleic acids, including SARS Coronavirus 2 (the causative agent of COVID-19). The following bacteria, viruses and virus subtypes can be identified using the FilmArray RP2.1 assay: Bordetella pertussis, Bordetella parapertussis, Chlamydia pneumoniae, Mycoplasma pneumoniae, Adenovirus, SARS Coronavirus 2, seasonal coronaviruses (Coronavirus HKU1, Coronavirus NL63, Coronavirus 229E, and Coronavirus OC43), Influenza A, Influenza A subtype H1, Influenza A subtype H3, Influenza A subtype 2009 H1, Influenza B, Metapneumovirus, Parainfluenza 1, Parainfluenza 2, Parainfluenza 3, Parainfluenza 4, RSV, Rhinovirus/Enterovirus. Due to the genetic similarity between human Rhinovirus and Enterovirus, the FilmArray RP2.1 assay cannot reliably differentiate them. Coronavirus OC43 may cross-react with some isolates of Coronavirus HKU1. A dual positive result may be due to cross-reactivity or may indicate a co- infection. The detection and identification of specific viral and bacterial nucleic acids from individuals exhibiting signs and symptoms of a respiratory infection aids in the diagnosis of respiratory infection if used in conjunction with other clinical and epidemiological information. The results of this test should not be used as the sole basis for diagnosis, treatment, or other management decisions. Negative results in the setting of a respiratory illness may be due to infection with pathogens that are not detected by this test. Positive results do not rule out infection/co-infection with other organisms. The agent(s) detected by the FilmArray RP2.1 may not be the definite cause of disease. Additional testing (lab, imaging, etc.) may be necessary when evaluating a patient with possible respiratory tract infection. The FilmArray RP2.1 assay has FDA clearance for testing of BREAKER OILER swabs. The performance of additional specimen types has been assessed by the performing laboratory. The performance characteristics of this assay have been determined by [facility] Molecular Infectious Disease Laboratory. Current interpretive data was last revised on 22. Bentley Arzate MD LAB MICROBIOLOGY - GENER AL ORDERABLES Final Result [facility] Department [place] [address] * POCUS Cardiac (06/11/2025 11:01 PM INDUSTRIAL HYGIENE ENGINEER) Anatomical Region Laterality Modality Other 06/11/2025 10:5 6 PM INDUSTRIAL HYGIENE ENGINEER Narrative 06/17/2025 10:19 PM INDUSTRIAL HYGIENE ENGINEER Performed by: Bentley Arzate Cardiac: Exam type: Diagnostic Exam Information: Indication(s) for Exam: Hypotension Exam Occurence: Initial Findings : Pericardial effusion: Absent Left ventricle: Normal EF Right ventricle: Dilated IVC: Normal IVC respiratory variation: High collapsibility (>50%) Interpretation: Normal LVEF Electronically signed by Bentley Arzate on Friday, June 13, 2025 at 7:00 AM I have reviewed the images & the resident's interpretation. I agree with the findings. Images on file. Electronically signed by Jeffery Reid on Tuesday, June 17, 2025 at 10:19 PM I have reviewed the images & the resident's interpretation. I agree with the findings. Images on file. Procedure Note Jeffery Reid MD - 06/17/2025 Performed by: Bentley Arzate Cardiac: Exam type: Diagnostic Exam Information: Indication(s) for Exam: Hypotension Exam Occurence: Initial Findings : Pericardial effusion: Absent Left ventricle: Normal EF Right ventricle: Dilated IVC: Normal IVC respiratory variation: High collapsibility (>50%) Interpretation: Normal LVEF Electronically signed by Bentley Arzate on Friday, June 13, 2025 at7:00 AM I have reviewed the images & the resident's interpretation. I agree withthe findings. Images on file. Electronically signed by Jeffery Reid on Tuesday, June 17, 2025 at10:19 PM I have reviewed the images & the resident's interpretation. I agree withthe findings. Images on file. us Jeffery Reid MD POCUS ORDERABLES Final Re sult * RI CRITICAL CARE ILL/INJURED PATIENT INIT 30-74 MIN (06/11/2025 11:00 PM INDUSTRIAL HYGIENE ENGINEER) Narrative Jeffery Reid MD - 06/11/2025 11:00 PM INDUSTRIAL HYGIENE ENGINEER Jeffery Reid MD 06/17/2025 3:19 PM Critical Care Performed by: Jeffery Reid MD Authorized by: Howard Sylvester MD PhD Critical care provider statement: As reflected in the history, physical exam, orders, notes, and/or MDM, I was personally present while the patient was critically ill and provided critical care services for 35 minutes, excluding time involved in separately billable procedures. Critical care was necessary to treat or prevent imminent or life-threatening deterioration of the following condition(s): undifferentiated shock severe oncologic emergency Critical care was time spent by me providing the following: continuous telemetry, continuous pulse oximetry, interpretation of bedside monitors, imaging, and arterial/venous lab draws, resuscitation with fluids, serial bedside patient exams and continuous capnography review prior cultures/records, obtain appropriate cultures and empiric broad coverage antibiotics I provided emergent necessary critical care medicine services to this patient. I ordered and reviewed test results and/or imaging studies. I spent time discussing the management of this critically ill patient with consultants and the medical staff. I spent time discussing the management and therapeutic options for this critically ill patient with the patient themselves or with the appropriate designated surrogate decision-maker. I spent time documenting in the medical record. I admitted this patient to a continuous cardiac monitored bed. us Howard Sylvester MD PhD IN CLINIC/BEDSIDE ORDERABLES Final Result * (ABNORMAL) Troponin I high-sensitivity series (baseline, 2hr, 4hr, 6hr) (06/11/2025 10:53 PM INDUSTRIAL HYGIENE ENGINEER) Trop I hs 146(H) <=35 ng/L Comment: Interpretive Data For further hscTnI resources including the diagnostic algorithm and an aid in interpretation, copy and paste this link: [email or web address]/[email or web address] Current Interpretive Data last revised 2020. Blood 06/11/2025 10:5 3 PM INDUSTRIAL HYGIENE ENGINEER 06/11/2025 11:06 PM INDUSTRIAL HYGIENE ENGINEER Bentley Arzate MD LAB BLOOD ORDERABLES Fin al Result [facility] [place] [address] * Sepsis Lactate w/ Reflex (06/11/2025 10:53 PM INDUSTRIAL HYGIENE ENGINEER) Sepsis Lactate 1.1 0.7 - 2.0 mmol/L Blood 06/11/2025 10:5 3 PM INDUSTRIAL HYGIENE ENGINEER 06/11/2025 11:04 PM INDUSTRIAL HYGIENE ENGINEER Bentley Arzate MD LAB BLOOD ORDERABLES Fin al Result Performing Organization Address City/[facility] Co de Phone Number [facility] [place] [address] * eGFR (06/11/2025 10:53 PM INDUSTRIAL HYGIENE ENGINEER) eGFR >90 >=60 mL/min/1. 73 m2 Comment: Interpretive Data Reference Interval Normal >/= 90 mL/min/1.73m2 Mildly decreased* 60 - 89 mL/min/1.73m2 Mildly to moderately decreased 45 - 59 mL/min/1.73m2 Moderately to severely decreased 30 - 44 mL/min/1.73m2 Severely decreased 15 - 29 mL/min/1.73m2 Kidney Failure < 15 mL/min/1.73m2 *Relative to young adult level Estimated glomerular filtration rate is determined by the 2020 CKD-EPI equation recommended by the National Kid[employer] (A Unifying Approach to GFR Estimation: Recommendations of the NKF-ASK Task Force on Reassessing the Inclusion of Race in Diagnosing Kidney Disease, JASN 2020). The CKD-EPI equation should not be used for patients with unstable renal function and has not been validated in children and those over 70. Current interpretive data was last reviewed 2021. Blood 06/11/2025 10:5 3 PM INDUSTRIAL HYGIENE ENGINEER 06/11/2025 11:06 PM INDUSTRIAL HYGIENE ENGINEER us Bentley Arzate MD LAB BLOOD ORDERABLES Fin al Result [facility] [place] [address] * (ABNORMAL) Differential, auto (06/11/2025 10:53 PM INDUSTRIAL HYGIENE ENGINEER) Neutrophil abs 8.20(H) 1.50 - 6.50 K/cumm Imm gran abs 0.05 0.00 - 0.10 K/cumm [facility] Lymphocyte abs 0.44(L) 0.80 - 3.30 K/cumm [facility] Monocyte abs 0.65 0.20 - 0.80 K/cumm [facility] Eosinophil abs 0.61(H) 0.00 - 0.50 K/cumm [facility] Basophil abs 0.05 0.00 - 0.10 K/cumm [facility] Neutrophil pct 82.0 % [facility] Comment: Interpretive Data Percent cell count reference ranges are not reported, since discordance with absolute values may lead to misinterpretation of CBC data. Current Interpretive Data was last revised on 2017. Imm gran pct 0.5 % [facility] Comment: Interpretive Data Percent cell count reference ranges are not reported, since discordance with absolute values may lead to misinterpretation of CBC data. Current Interpretive Data was last revised on 2017. Lymphocyte pct 4.4 % [facility] Comment: Interpretive Data Percent cell count reference ranges are not reported, since discordance with absolute values may lead to misinterpretation of CBC data. Current Interpretive Data was last revised on 2017. Monocyte pct 6.5 % [facility] Comment: Interpretive Data Percent cell count reference ranges are not reported, since discordance with absolute values may lead to misinterpretation of CBC data. Current Interpretive Data was last revised on 2017. Eosinophil pct 6.1 % [facility] Comment: Interpretive Data Percent cell count reference ranges are not reported, since discordance with absolute values may lead to misinterpretation of CBC data. Current Interpretive Data was last revised on 2017. Basophil pct 0.5 % [facility] Comment: Interpretive Data Percent cell count reference ranges are not reported, since discordance with absolute values may lead to misinterpretation of CBC data. Current Interpretive Data was last revised on 2017. Blood 06/11/2025 10:5 3 PM INDUSTRIAL HYGIENE ENGINEER 06/11/2025 11:06 PM INDUSTRIAL HYGIENE ENGINEER Bentley Arzate MD LAB BLOOD ORDERABLES Fin al Result Performing Organization Address City/[facility] Co de Phone Number [facility] [place] [address] * Thyroid Function [place] (06/11/2025 10:53 PM INDUSTRIAL HYGIENE ENGINEER) TSH 2.84 0.30 - 4.20 mcIUnit/mL Blood 06/11/2025 10:5 3 PM INDUSTRIAL HYGIENE ENGINEER 06/11/2025 11:06 PM INDUSTRIAL HYGIENE ENGINEER Bentley Arzate MD LAB BLOOD ORDERABLES Fin al Result Performing Organization Address [facility] de Phone Number [facility] [place] [address] * (ABNORMAL) Calcium, ionized (06/11/2025 10:53 PM INDUSTRIAL HYGIENE ENGINEER) Pathologist [facility] Calcium, Ionized 6.00(H) 4.50 - 5.10 mg/dL Blood 06/11/2025 10:5 3 PM INDUSTRIAL HYGIENE ENGINEER 06/11/2025 11:04 PM INDUSTRIAL HYGIENE ENGINEER Bentley Arzate MD LAB BLOOD ORDERABLES Fin al Result Performing Organization Address [facility] de Phone Number [facility] [place] [address] * (ABNORMAL) CBC with auto differential (06/11/2025 10:53 PM INDUSTRIAL HYGIENE ENGINEER) WBC 10.00(H) 3.80 - 9.90 K/cumm Hgb 13.3 13.0 - 17.5 g/dL [facility] Hct 43.4 38.9 - 50.3 % [facility] Plt 244 150 - 400 K/cumm [facility] MPV 8.6(L) 9.1 - 12.3 fL [facility] RBC 5.67 4.30 - 5.80 M/cumm [facility] MCV 76.5(L) 81.3 - 96.4 fL [facility] MCH 23.5(L) 27.1 - 33.3 pg [facility] MCHC 30.6(L) 32.3 - 35.7 g/dL [facility] RDW CV 21.7(H) 11.1 - 14.9 % [facility] RDW SD 57.8(H) 35.7 - 48.1 fL [facility] NRBC abs 0.00 0.00 - 0.01 K/cumm [facility] Blood 06/11/2025 10:5 3 PM INDUSTRIAL HYGIENE ENGINEER 06/11/2025 11:06 PM INDUSTRIAL HYGIENE ENGINEER Bentley Arzate MD LAB BLOOD ORDERABLES Fin al Result [facility] [place] [address] * Blood culture Blood Peripheral (06/11/2025 10:53 PM INDUSTRIAL HYGIENE ENGINEER) Pathologist [facility] Report Final Report: No growth Blood (Peripheral) 06/11/2025 10:53 PM INDUSTRIAL HYGIENE ENGINEER 06/11/2025 11:04 PM INDUSTRIAL HYGIENE ENGINEER Narrative [facility] - 06/16/2025 7:00 AM INDUSTRIAL HYGIENE ENGINEER From a different site than #1. Draw Blood cultures before administration of Antibiotics Collection->Peripheral 1. Blood cultures are incubated for 4 days on a continuously monitored blood culture system. The first report of a negative culture is issued within 24 hours of receipt of the specimen in the laboratory. 2. Positive culture results are reported as soon as they are detected. 3. The most important factor for detection of microbes in the setting of bloodstream infection is the volume of blood submitted for culture. Failure to collect an optimal blood volume can result in false negative blood cultures. 4. For pediatric patients, the recommended blood volume to collect follows a weight based strategy. See the electronic test catalog for collection instructions. 5. For positive blood cultures, a rapid molecular test may be performed for organism identification using the nanette ePlex blood culture identification panel for gram positive (BCID-GP) and gram negative (BCID-GN) organisms. This nucleic acid amplification test detects microbial DNA in positive blood culture broth. This assay has been cleared by the [place] Food and Drug Administration and its performance characteristics have been verified by the [facility]. For questions about this culture, contact the Microbiology Laboratory at [phone]. Interpretive data was last revised on 24. Bentley Arzate MD LAB MICROBIOLOGY - [facility] AL ORDERABLES Final Result [facility] [place] [address] * Blood culture Blood Peripheral (06/11/2025 10:53 PM INDUSTRIAL HYGIENE ENGINEER) Report Final Report: No growth Blood (Peripheral) 06/11/2025 10:53 PM INDUSTRIAL HYGIENE ENGINEER 06/11/2025 11:04 PM INDUSTRIAL HYGIENE ENGINEER Narrative [facility] - 06/16/2025 7:00 AM INDUSTRIAL HYGIENE ENGINEER Draw Blood cultures before administration of Antibiotics Collection->Peripheral 1. Blood cultures are incubated for 4 days on a continuously monitored blood culture system. The first report of a negative culture is issued within 24 hours of receipt of the specimen in the laboratory. 2. Positive culture results are reported as soon as they are detected. 3. The most important factor for detection of microbes in the setting of bloodstream infection is the volume of blood submitted for culture. Failure to collect an optimal blood volume can result in false negative blood cultures. 4. For pediatric patients, the recommended blood volume to collect follows a weight based strategy. See the electronic test catalog for collection instructions. 5. For positive blood cultures, a rapid molecular test may be performed for organism identification using the nanette ePlex blood culture identification panel for gram positive (BCID-GP) and gram negative (BCID-GN) organisms. This nucleic acid amplification test detects microbial DNA in positive blood culture broth. This assay has been cleared by the [place] Food and Drug Administration and its performance characteristics have been verified by the [facility]. For questions about this culture, contact the Microbiology Laboratory at [phone]. Interpretive data was last revised on 24. Bentley Arzate MD LAB MICROBIOLOGY - GENER AL ORDERABLES Final Result Performing Organization Address [facility] Co de Phone Number [facility] [place] [address] * Uric acid (06/11/2025 10:53 PM INDUSTRIAL HYGIENE ENGINEER) Uric acid 3.9 3.0 - 8.0 mg/dL Blood 06/11/2025 10:5 3 PM INDUSTRIAL HYGIENE ENGINEER 06/11/2025 11:06 PM INDUSTRIAL HYGIENE ENGINEER Bentley Arzate MD LAB BLOOD ORDERABLES Fin al Result Performing Organization Address [facility] de Phone Number [facility] [place] [address] * Phosphorus (06/11/2025 10:53 PM INDUSTRIAL HYGIENE ENGINEER) Phosphorus, pl 2.8 2.3 - 4.5 mg/dL Blood 06/11/2025 10:5 3 PM INDUSTRIAL HYGIENE ENGINEER 06/11/2025 11:06 PM INDUSTRIAL HYGIENE ENGINEER Bentley Arzate MD LAB BLOOD ORDERABLES Fin al Result Performing Organization Address [facility] Co de Phone Number [facility] [place] [address] * Magnesium (06/11/2025 10:53 PM INDUSTRIAL HYGIENE ENGINEER) Magnesium 2.0 1.4 - 2.5 mg/dL Blood 06/11/2025 10:5 3 PM INDUSTRIAL HYGIENE ENGINEER 06/11/2025 11:06 PM INDUSTRIAL HYGIENE ENGINEER Bentley Arzate MD LAB BLOOD ORDERABLES Fin al Result Performing Organization Address [facility] de Phone Number [facility] [place] [address] * (ABNORMAL) Lipase (06/11/2025 10:53 PM INDUSTRIAL HYGIENE ENGINEER) Pathologist [facility] Lipase 9(L) 10 - 99 Units/L Blood 06/11/2025 10:5 3 PM INDUSTRIAL HYGIENE ENGINEER 06/11/2025 11:06 PM INDUSTRIAL HYGIENE ENGINEER Bentley Arzate MD LAB BLOOD ORDERABLES Fin al Result Performing Organization Address [facility] de Phone Number [facility] [place] [address] * (ABNORMAL) Lactate dehydrogenase (LD) (06/11/2025 10:53 PM INDUSTRIAL HYGIENE ENGINEER) Pathologist [facility] Lactate dehydrogenase (LDH) 278(H) 100 - 250 Units/L Blood 06/11/2025 10:5 3 PM INDUSTRIAL HYGIENE ENGINEER 06/11/2025 11:06 PM INDUSTRIAL HYGIENE ENGINEER Bentley Arzate MD LAB BLOOD ORDERABLES Fin al Result Performing Organization Address [facility] [place] [address] * (ABNORMAL) Hepatic function panel (06/11/2025 10:53 PM INDUSTRIAL HYGIENE ENGINEER) Bilirubin, total 0.3 0.1 - 1.2 mg/dL Bilirubin, direct <0.2 0.1 - 0.3 mg/dL [facility] Protein, pl 6.5 6.5 - 8.5 g/dL [facility] Albumin 2.6(L) 3.5 - 5.0 g/dL [facility] Alk phos 68 40 - 130 Units/L [facility] ALT 16 7 - 55 Units/L [facility] AST 21 10 - 50 Units/L [facility] Blood 06/11/2025 10:5 3 PM INDUSTRIAL HYGIENE ENGINEER 06/11/2025 11:06 PM INDUSTRIAL HYGIENE ENGINEER Bentley Arzate MD LAB BLOOD ORDERABLES Fin al Result [facility] [place] [address] * (ABNORMAL) Basic metabolic panel (06/11/2025 10:53 PM INDUSTRIAL HYGIENE ENGINEER) Pathologist [facility] Sodium 129(L) 135 - 145 mmol/L Potassium, pl 4.3 3.3 - 4.9 mmol/L [facility] Chloride 97 97 - 110 mmol/L [facility] CO2 26 22 - 32 mmol/L [facility] Anion gap 6 2 - 15 mmol/L [facility] BUN 12 6 - 25 mg/dL [facility] Creatinine 0.72(L) 0.80 - 1.30 mg/dL [facility] Glucose 105 70 - 199 mg/dL [facility] Comment: Interpretive Data Fasting glucose >/= 126 mg/dl is diagnostic for diabetes. Fasting is defined as no caloric intake for at least 8 hours. Fasting glucose between 100 mg/dl to 125 mg/dl is diagnostic of prediabetes. In a patient with classic symptoms of hyperglycemia or hyperglycemic crisis, a random glucose >/= 200 mg/dl is diagnostic for diabetes. In the absence of unequivocal hyperglycemia, results should be confirmed by repeat testing. The classification and Diagnosis of Diabetes Diabetes Care 2021; 46: S19-S40. Current interpretive data was last revised 2022. Calcium 11.0(H) 8.5 - 10.3 mg/dL [facility] Blood 06/11/2025 10:5 3 PM INDUSTRIAL HYGIENE ENGINEER 06/11/2025 11:06 PM INDUSTRIAL HYGIENE ENGINEER Bentley Arzate MD LAB BLOOD ORDERABLES Fin al Result [facility] [place] [address] * XR Chest 1 Vw Portable (06/11/2025 10:52 PM INDUSTRIAL HYGIENE ENGINEER) Anatomical Region Laterality Modality Body, Chest N/A Digital Radiogra phy 06/11/2025 11:4 5 PM INDUSTRIAL HYGIENE ENGINEER Impressions 06/12/2025 1:45 PM INDUSTRIAL HYGIENE ENGINEER Comparison is made to prior chest radiograph dated 06/10/2025 at 9:48 AM. Right internal jugular chest port catheter with tip terminating over the right atrium. Partially imaged surgical instrumentation in the left humerus. There is persistent complete whiteout of the left lung. Left basilar chest tube in unchanged orientation. The right lung is clear. No right pleural effusion or pneumothorax. The cardiomediastinal contours are obscured. Unchanged left posterior third and fourth rib fractures. Dictated by: Elvira Timmons MD, PhD. The radiology attending physician has personally reviewed this study, and had reviewed and/or edited this written report and agrees with it. Electronically signed by: Abner Chang M.D. Narrative 06/12/2025 1:45 PM INDUSTRIAL HYGIENE ENGINEER EXAMINATION: 1 view chest radiograph Procedure Note Abner Chang MD - 06/12/2025 EXAMINATION: 1 view chest radiograph IMPRESSION: Comparison is made to prior chest radiograph dated 06/10/2025 at 9:48 AM. Right internal jugular chest port catheter with tip terminating over the right atrium. Partially imaged surgical instrumentation in the left humerus. There is persistent complete whiteout of the left lung. Left basilar chest tube in unchanged orientation. The right lung is clear. No right pleural effusion or pneumothorax. The cardiomediastinal contours are obscured. Unchanged left posterior third and fourth rib fractures. Dictated by: Elvira Timmons MD, PhD. The radiology attending physician has personally reviewed this study, and had reviewed and/or edited this written report and agrees with it. Electronically signed by: Abner Chang M.D. Bentlye Arzate MD IMG XR PROCEDURES Final Result * ECG 12-LEAD (06/11/2025 9:23 PM INDUSTRIAL HYGIENE ENGINEER) Narrative [facility] - 06/11/2025 9:23 PM INDUSTRIAL HYGIENE ENGINEER Jeffery Reid MD 06/11/2025 9:26 PM ECG 12 lead Date/Time: 06/11/2025 9:23 PM Performed by: Jeffery Reid MD Authorized by: Kathie Noble NP Comments: Sinus rhythm at a rate of 86. Nonspecific STT wave changes, T-wave inversion lead V1 V3 subtle ST-depression in the inferior leads. Normal axis and intervals. Comparison EKG was previously sinus tachycardia at 160 and 04/28/2025. ST-T waves are incomparable. Moderate risk for nonspecific STT wave changes. Jeffery Reid MD ECG ORDERABLES Final Res ult [facility] * Blood culture Blood Port (06/11/2025 6:05 PM INDUSTRIAL HYGIENE ENGINEER) Report Final Report: No growth Blood (Port) 06/11/2025 6:05 PM INDUSTRIAL HYGIENE ENGINEER 06/11/2025 8:09 PM INDUSTRIAL HYGIENE ENGINEER Narrative [facility] - 06/16/2025 7:00 AM INDUSTRIAL HYGIENE ENGINEER Peripheral and line draw 1. Blood cultures are incubated for 4 days on a continuously monitored blood culture system. The first report of a negative culture is issued within 24 hours of receipt of the specimen in the laboratory. 2. Positive culture results are reported as soon as they are detected. 3. The most important factor for detection of microbes in the setting of bloodstream infection is the volume of blood submitted for culture. Failure to collect an optimal blood volume can result in false negative blood cultures. 4. For pediatric patients, the recommended blood volume to collect follows a weight based strategy. See the electronic test catalog for collection instructions. 5. For positive blood cultures, a rapid molecular test may be performed for organism identification using the nanette ePlex blood culture identification panel for gram positive (BCID-GP) and gram negative (BCID-GN) organisms. This nucleic acid amplification test detects microbial DNA in positive blood culture broth. This assay has been cleared by the [place] Food and Drug Administration and its performance characteristics have been verified by the [facility]. For questions about this culture, contact the Microbiology Laboratory at [phone]. Interpretive data was last revised on 24. Marisol Meza NP LAB MICROBIOLOGY - GENERAL ORDERABLES Final Result Performing Organization Address [facility]/ZIP Co de Phone Number [facility] [place] [address] * Blood culture Blood Antecubital, right (06/11/2025 6:05 PM INDUSTRIAL HYGIENE ENGINEER) Report Final Report: No growth Blood (Antecubital, right) 06/11/2025 6:05 PM INDUSTRIAL HYGIENE ENGINEER 06/11/2025 8:09 PM INDUSTRIAL HYGIENE ENGINEER Narrative [facility] - 06/16/2025 7:00 AM INDUSTRIAL HYGIENE ENGINEER 1. Blood cultures are incubated for 4 days on a continuously monitored blood culture system. The first report of a negative culture is issued within 24 hours of receipt of the specimen in the laboratory. 2. Positive culture results are reported as soon as they are detected. 3. The most important factor for detection of microbes in the setting of bloodstream infection is the volume of blood submitted for culture. Failure to collect an optimal blood volume can result in false negative blood cultures. 4. For pediatric patients, the recommended blood volume to collect follows a weight based strategy. See the electronic test catalog for collection instructions. 5. For positive blood cultures, a rapid molecular test may be performed for organism identification using the nanette ePlex blood culture identification panel for gram positive (BCID-GP) and gram negative (BCID-GN) organisms. This nucleic acid amplification test detects microbial DNA in positive blood culture broth. This assay has been cleared by the [place] Food and Drug Administration and its performance characteristics have been verified by the [facility]. For questions about this culture, contact the Microbiology Laboratory at [phone]. Interpretive data was last revised on 24. Marisol Meza NP LAB MICROBIOLOGY - GENERAL ORDERABLES Final Result Performing Organization Address [facility]/ZIP Co de Phone Number [facility] [place] [address] * Sepsis Lactate w/ Reflex (06/11/2025 5:50 PM INDUSTRIAL HYGIENE ENGINEER) Sepsis Lactate 1.5 0.7 - 2.0 mmol/L Blood 06/11/2025 5:50 PM INDUSTRIAL HYGIENE ENGINEER 06/11/2025 7:19 PM INDUSTRIAL HYGIENE ENGINEER Marisol Meza NP LAB BLOOD ORDERABLES Final Result [facility] [place] [address] * (ABNORMAL) Urinalysis reflex to microscopic and culture Urine (06/11/2025 7:25 AM INDUSTRIAL HYGIENE ENGINEER) Color, ur Straw Yellow Clarity, ur Clear Clear [facility] Specific gravity, ur 1.025 1.003 - 1.030 [facility] pH, urine 6.5 [facility] Comment: Interpretive Data U rine pH is affected by diet, medications, systemic acid-base disturbances, and renal tubular function. pH may affect urinary stone formation. For example, urine pH below 6.0 may help reduce the tendency for calcium phosphate stones and pH greater than 6.0 may reduce the tendency for uric acid stone formation. Source: [facility] Current Interpretive Data was last revised on 2017 Protein, ur ql Trace Negative [facility] Glucose, ur ql 4+(A) Negative [facility] Ketones, ur Negative Negative [facility] Bilirubin, ur Negative Negative [facility] Blood, ur 1+(A) Negative [facility] Urobilinogen, ur <2.0 <2.0 mg/dL [facility] Nitrite, ur Negative Negative [facility] Leukocyte esterase, ur Negative [facility] UA reflex comment Reflex to microscopic UA will be performed. [facility] Urine 06/11/2025 7:25 AM INDUSTRIAL HYGIENE ENGINEER 06/11/2025 7:25 AM INDUSTRIAL HYGIENE ENGINEER Sea Ocampo MD LAB MICROBIOLOGY - GENERA L ORDERABLES Final Result Performing Organization Address City/[facility] Co de Phone Number [facility] [place] [address] * (ABNORMAL) Urinalysis, microscopic only (06/11/2025 7:25 AM INDUSTRIAL HYGIENE ENGINEER) WBC, ur 0-5 0 - 5 /HPF RBC, ur 21-50(A) 0 - 2 /HPF [facility] Culture Reflex Comment Reflex conditions for urine culture (WBC >10) not met. [facility] Urine 06/11/2025 7:25 AM INDUSTRIAL HYGIENE ENGINEER 06/11/2025 7:25 AM INDUSTRIAL HYGIENE ENGINEER Sea Ocampo MD LAB URINE ORDERABLES Lena l Result Performing Organization Address [facility] Co de Phone Number [facility] [place] [address] * eGFR (06/11/2025 7:21 AM INDUSTRIAL HYGIENE ENGINEER) eGFR >90 >=60 mL/min/1. 73 m2 Comment: Interpretive Data Reference Interval Normal >/= 90 mL/min/1.73m2 Mildly decreased* 60 - 89 mL/min/1.73m2 Mildly to moderately decreased 45 - 59 mL/min/1.73m2 Moderately to severely decreased 30 - 44 mL/min/1.73m2 Severely decreased 15 - 29 mL/min/1.73m2 Kidney Failure < 15 mL/min/1.73m2 *Relative to young adult level Estimated glomerular filtration rate is determined by the 2020 CKD-EPI equation recommended by the National Kidney Foundation (A Unifying Approach to GFR Estimation: Recommendations of the NKF-ASK Task Force on Reassessing the Inclusion of Race in Diagnosing Kidney Disease, JASN 2020). The CKD-EPI equation should not be used for patients with unstable renal function and has not been validated in children and those over 70. Current interpretive data was last reviewed 2021. Blood 06/11/2025 7:21 AM INDUSTRIAL HYGIENE ENGINEER 06/11/2025 7:23 AM INDUSTRIAL HYGIENE ENGINEER us Sea Ocampo MD LAB BLOOD ORDERABLES Lena grimm Result [facility] [place] [address] * (ABNORMAL) Differential, auto (06/11/2025 7:21 AM INDUSTRIAL HYGIENE ENGINEER) Neutrophil abs 11.65(H) 1.50 - 6.50 K/cumm Comment:Testing performed by : [facility], [address] [place] [phone] Lymphocyte abs 1.31 0.80 - 3.30 K/cumm [facility] Comment:Testing performed by : [facility], [address] [place] [phone] Monocyte abs 1.06(H) 0.20 - 0.80 K/cumm [facility] Comment:Testing performed by : [facility], [address] [place] [phone] Eosinophil abs 0.79(H) 0.00 - 0.50 K/cumm [facility] Comment:Testing performed by : [facility], [address] [place] [phone] Basophil abs 0.12(H) 0.00 - 0.10 K/cumm [facility] Comment:Testing performed by : [facility], [address] [place] [phone] Neutrophil pct 78.1 % [facility] Comment: Interpretive Data Percent cell count reference ranges are not reported, since discordance with absolute values may lead to misinterpretation of CBC data. Current Interpretive Data was last revised on 2017. Testing performed by: [facility], [address] [place] [phone] Lymphocyte pct 8.7 % [facility] Comment: Interpretive Data Percent cell count reference ranges are not reported, since discordance with absolute values may lead to misinterpretation of CBC data. Current Interpretive Data was last revised on 2017. Testing performed by: [facility], [address] [place] [phone] Monocyte pct 7.1 % [facility] Comment: Interpretive Data Percent cell count reference ranges are not reported, since discordance with absolute values may lead to misinterpretation of CBC data. Current Interpretive Data was last revised on 2017. Testing performed by: [facility], [address] [place] [phone] Eosinophil pct 5.3 % BENJAMIN CARRION Comment: Interpretive Data Percent cell count reference ranges are not reported, since discordance with absolute values may lead to misinterpretation of CBC data. Current Interpretive Data was last revised on 2017. Testing performed by: [facility], [address] [place] [phone] Basophil pct 0.8 % BENJAMIN CARRION Comment: Interpretive Data Percent cell count reference ranges are not reported, since discordance with absolute values may lead to misinterpretation of CBC data. Current Interpretive Data was last revised on 2017. Testing performed by: [facility], [address] [place] [phone] Blood 06/11/2025 7:21 AM INDUSTRIAL HYGIENE ENGINEER 06/11/2025 7:22 AM INDUSTRIAL HYGIENE ENGINEER us Sea Ocampo MD LAB BLOOD ORDERABLES Lena l Result BENJAMIN CARRION [facility] [place] [address] * (ABNORMAL) CBC with auto differential (06/11/2025 7:21 AM INDUSTRIAL HYGIENE ENGINEER) WBC 14.93(H) 3.80 - 9.90 K/cumm Comment:Testing performed by : [facility], [address] [place] [phone] Hgb 14.0 13.0 - 17.5 g/dL BENJAMIN CARRION Comment:Testing performed by : [facility], [address] [place] [address] Hct 44.0 38.9 - 50.3 % CERNER BJ Comment:Testing performed by : [facility], [address] [place] [address] Plt 336 150 - 400 K/cumm CERNER BJ Comment:Testing performed by : [facility], [address] [place] [address] MPV 6.8 6.8 - 10.4 fL CERNER BJ Comment:Testing performed by : [facility], [address] [place] [address] RBC 5.93(H) 4.30 - 5.80 M/cumm CERNER BJ Comment:Testing performed by : [facility], [address] [place] [address] MCV 74.2(L) 81.3 - 96.4 fL CERNER BJ Comment:Testing performed by : [facility], [address] [place] [address] MCH 23.6(L) 27.1 - 33.3 pg CERNER BJ Comment:Testing performed by : [facility], [address] [place] [address] MCHC 31.8(L) 32.3 - 35.7 g/dL CERNER BJ Comment:Testing performed by : [facility], [address] [place] [address] RDW CV 21.8(H) 11.1 - 14.9 % CERNER BJ Comment:Testing performed by : [facility], [address] [place] [address] NRBC abs 0.00 0.00 - 0.01 K/cumm CERNER BJ Comment:Testing performed by : [facility], [address] [place] [address] Blood 06/11/2025 7:21 AM INDUSTRIAL HYGIENE ENGINEER 06/11/2025 7:22 AM INDUSTRIAL HYGIENE ENGINEER Sea Ocampo MD LAB BLOOD ORDERABLES Lena l Result Performing Organization Address City/State/[facility] de Phone Number [facility] [place] [address] * aPTT (06/11/2025 7:21 AM INDUSTRIAL HYGIENE ENGINEER) aPTT 34 26 - 38 sec Comment: Interpretive Data Heparin therapeutic range: 66.0 - 100.0 seconds. Range based on correlation with therapeutic heparin activity range of 0.3 - 0.7 Units/mL. Blood 06/11/2025 7:21 AM INDUSTRIAL HYGIENE ENGINEER 06/11/2025 7:41 AM INDUSTRIAL HYGIENE ENGINEER Sea Ocampo MD LAB BLOOD ORDERABLES Lena grimm Result Performing Organization Address [facility] Phone Number [facility] [place] [address] * (ABNORMAL) Protime-INR (06/11/2025 7:21 AM INDUSTRIAL HYGIENE ENGINEER) PT 15.6(H) 10.2 - 13.5 sec INR 1.39(H) 0.90 - 1.20 [facility] Comment: Interpretive data Oral anticoagulant therapeutic ranges: Venous thromboembolism prophylaxis or treatment: 2.0-3.0 CARDIOLOGY Standard range: 2.0-3.0 High-intensity range: 2.5-3.5 Refer to indication-specific guidelines for appropriate target ranges for prosthetic heart valve replacement. Current interpretive data was last revised on 2019. Blood 06/11/2025 7:21 AM INDUSTRIAL HYGIENE ENGINEER 06/11/2025 7:41 AM INDUSTRIAL HYGIENE ENGINEER Sea Ocampo MD LAB BLOOD ORDERABLES Lena l Result Performing Organization Address [facility] Co de Phone Number [facility] [place] [address] * Uric acid (06/11/2025 7:21 AM INDUSTRIAL HYGIENE ENGINEER) Uric acid 3.7 3.0 - 8.0 mg/dL Blood 06/11/2025 7:21 AM INDUSTRIAL HYGIENE ENGINEER 06/11/2025 7:23 AM INDUSTRIAL HYGIENE ENGINEER Result Peterson Ocampo MD LAB BLOOD ORDERABLES Lena l Result Performing Organization Address [facility] de Phone Number [facility] [place] [address] * Phosphorus (06/11/2025 7:21 AM INDUSTRIAL HYGIENE ENGINEER) Phosphorus, pl 2.4 2.3 - 4.5 mg/dL Blood 06/11/2025 7:21 AM INDUSTRIAL HYGIENE ENGINEER 06/11/2025 7:23 AM INDUSTRIAL HYGIENE ENGINEER Result Peterson Ocampo MD LAB BLOOD ORDERABLES Lena l Result Performing Organization Address [facility] de Phone Number [facility] [place] [address] * Magnesium (06/11/2025 7:21 AM INDUSTRIAL HYGIENE ENGINEER) Magnesium 2.0 1.4 - 2.5 mg/dL Blood 06/11/2025 7:21 AM INDUSTRIAL HYGIENE ENGINEER 06/11/2025 7:23 AM INDUSTRIAL HYGIENE ENGINEER Result Peterson Ocampo MD LAB BLOOD ORDERABLES Lena l Result Performing Organization Address [facility] de Phone Number [facility] [place] [address] * Lipase (06/11/2025 7:21 AM INDUSTRIAL HYGIENE ENGINEER) Lipase 12 10 - 99 Units/L Blood 06/11/2025 7:21 AM INDUSTRIAL HYGIENE ENGINEER 06/11/2025 7:23 AM INDUSTRIAL HYGIENE ENGINEER us Sea Ocampo MD LAB BLOOD ORDERABLES Lena l Result Performing Organization Address [facility]/ZIP Co de Phone Number [facility] [place] [address] * Bilirubin, direct (06/11/2025 7:21 AM INDUSTRIAL HYGIENE ENGINEER) [facility] Bilirubin, direct 0.2 0.1 - 0.3 mg/dL Blood 06/11/2025 7:21 AM INDUSTRIAL HYGIENE ENGINEER 06/11/2025 7:23 AM INDUSTRIAL HYGIENE ENGINEER Sea Ocampo MD LAB BLOOD ORDERABLES Lena l Result Performing Organization Address City/[facility]/ZIP Co de Phone Number [facility] [place] [address] * Amylase (06/11/2025 7:21 AM INDUSTRIAL HYGIENE ENGINEER) [facility] Amylase <30 30 - 99 Units/L Blood 06/11/2025 7:21 AM INDUSTRIAL HYGIENE ENGINEER 06/11/2025 7:23 AM INDUSTRIAL HYGIENE ENGINEER Sea Ocampo MD LAB BLOOD ORDERABLES Lena l Result Performing Organization Address [facility] Co de Phone Number [facility] [place] [address] * (ABNORMAL) Comprehensive metabolic panel (06/11/2025 7:21 AM INDUSTRIAL HYGIENE ENGINEER) [facility] Sodium 129(L) 135 - 145 mmol/L Potassium, pl 4.4 3.3 - 4.9 mmol/L [facility] Chloride 94(L) 97 - 110 mmol/L [facility] CO2 30 22 - 32 mmol/L [facility] Anion gap 5 2 - 15 mmol/L [facility] BUN 11 6 - 25 mg/dL [facility] Creatinine 0.71(L) 0.80 - 1.30 mg/dL [facility] Glucose 124 70 - 199 mg/dL [facility] Comment: Interpretive Data Fasting glucose >/= 126 mg/dl is diagnostic for diabetes. Fasting is defined as no caloric intake for at least 8 hours. Fasting glucose between 100 mg/dl to 125 mg/dl is diagnostic of prediabetes. In a patient with classic symptoms of hyperglycemia or hyperglycemic crisis, a random glucose >/= 200 mg/dl is diagnostic for diabetes. In the absence of unequivocal hyperglycemia, results should be confirmed by repeat testing. The classification and Diagnosis of Diabetes Diabetes Care 2021; 46: S19-S40. Current interpretive data was last revised 2022. Calcium 11.0(H) 8.5 - 10.3 mg/dL [facility] Bilirubin, total 0.3 0.1 - 1.2 mg/dL [facility] Protein, pl 7.1 6.5 - 8.5 g/dL [facility] Albumin 2.9(L) 3.5 - 5.0 g/dL [facility] Alk phos 73 40 - 130 Units/L [facility] ALT 12 7 - 55 Units/L [facility] AST 16 10 - 50 Units/L [facility] Blood 06/11/2025 7:21 AM INDUSTRIAL HYGIENE ENGINEER 06/11/2025 7:23 AM INDUSTRIAL HYGIENE ENGINEER us Sea Ocampo MD LAB BLOOD ORDERABLES Lena grimm Result [facility] [place] [address] * X-ray chest 2 views (06/10/2025 9:51 AM INDUSTRIAL HYGIENE ENGINEER) Anatomical Region Laterality Modality Body, Chest N/A Computed Radiogr aphy 06/10/2025 11:2 0 AM INDUSTRIAL HYGIENE ENGINEER Impressions 06/10/2025 11:20 AM INDUSTRIAL HYGIENE ENGINEER Comparison is made to prior study of 05/21/2025 at 10:05 AM. In the interval, no change in a right port catheter with the tip overlying the right atrium. When compared to the prior study, there has been repositioning of a left chest tube. A new left pneumothorax is seen. The right lung is clear. The right mediastinal border is unchanged. No right pneumothorax. No right pleural effusion. Electronically signed by: Mateusz Tirado M.D. Narrative 06/10/2025 11:20 AM INDUSTRIAL HYGIENE ENGINEER EXAMINATION: 2 view chest radiograph Procedure Note Mateusz Tirado MD - 06/10/2025 EXAMINATION: 2 view chest radiograph IMPRESSION: Comparison is made to prior study of 05/21/2025 at 10:05 AM. In the interval, no change in a right port catheter with the tip overlying the right atrium. When compared to the prior study, there has been repositioning of a left chest tube. A new left pneumothorax is seen. The right lung is clear. The right mediastinal border is unchanged. No right pneumothorax. No right pleural effusion. Electronically signed by: Mateusz Tirado M.D. us Ben Quevedo MD IMG XR PROCEDURES Final R esult * US Guided Biopsy Lymph Node Superficial Left (06/10/2025 9:35 AM INDUSTRIAL HYGIENE ENGINEER) Anatomical Region Laterality Modality Entire body N/A Ultrasound 06/10/2025 9:54 AM INDUSTRIAL HYGIENE ENGINEER Impressions 06/10/2025 9:54 AM INDUSTRIAL HYGIENE ENGINEER 1. Successful ultrasound-guided core needle biopsy of left axillary lymph node. 2. Please see separate Surgical Pathology results for final interpretation. Electronically signed by: Italia Norton PA-C Narrative 06/10/2025 9:54 AM INDUSTRIAL HYGIENE ENGINEER EXAMINATION: ULTRASOUND-GUIDED CORE BIOPSY HISTORY: 5-year-old male with metastatic non-small cell lung cancer status post proximal humeral fracture with resection and enlarged left axillary lymph nodes here for core biopsy. The more superior lymph node was targeted COMPARISON: CT chest abdomen and pelvis June 06, 2025 FINDINGS: Enlarged rounded hypoechoic lymph node is identified with correlate on CAT scan TECHNIQUE: The procedure for ultrasound-guided core biopsy was explained to and discussed with the patient. Risks were explained to include, but not be limited to, hemorrhage, infection, injury to adjacent organs, non-diagnostic specimen and adverse reaction to medications administered. The patient voiced understanding and wished to proceed and signed the consent form. PROCEDURAL SEDATION: Local anesthesia only CORE BIOPSY: The lymph node was located in left axilla and measured 3.3 cm x 3.6 cm x 4.5 cm. An appropriate site was localized for core biopsy. The patient's overlying skin was prepped and draped in the usual sterile fashion. Local anesthesia was achieved via subcutaneous and deep administration with 10 mL of Lidocaine 1%. Under realtime ultrasound guidance, 3 passes were made with an 18 gauge BioPince core biopsy needle, 1 cm and 2 cm cm throw, without the use of a 17 gauge introducer needle. The core specimens were placed in study media and submitted to the aircraft landing gear inspector service for delivery to Surgical Pathology. No tract embolization was performed. The 2 cm cores were cut in half, there are a total of 5 cores in the study media. The patient's skin was cleaned and dressed. The patient tolerated the entire procedure well without immediate complications. . Italia Norton PA-C, the Physician Apartment Rental Clerk, was present from the beginning to the end of the procedure. Italia MEJIA performed the biopsy. Dr. Chloe Zeng (residential program director) was present and participated in the procedure. Procedure Note Italia Norton PA - 06/10/2025 EXAMINATION: ULTRASOUND-GUIDED CORE BIOPSY HISTORY: 5-year-old male with metastatic non-small cell lung cancer status post proximal humeral fracture with resection and enlarged left axillary lymph nodes here for core biopsy. The more superior lymph node was targeted COMPARISON: CT chest abdomen and pelvis June 06, 2025 FINDINGS: Enlarged rounded hypoechoic lymph node is identified with correlate on CAT scan TECHNIQUE: The procedure for ultrasound-guided core biopsy was explained to and discussed with the patient. Risks were explained to include, but not be limited to, hemorrhage, infection, injury to adjacent organs, non-diagnostic specimen and adverse reaction to medications administered. The patient voiced understanding and wished to proceed and signed the consent form. PROCEDURAL SEDATION: Local anesthesia only CORE BIOPSY: The lymph node was located in left axilla and measured 3.3 cm x 3.6 cm x 4.5 cm. An appropriate site was localized for core biopsy. The patient's overlying skin was prepped and draped in the usual sterile fashion. Local anesthesia was achieved via subcutaneous and deep administration with 10 mL of Lidocaine 1%. Under realtime ultrasound guidance, 3 passes were made with an 18 gauge BioPince core biopsy needle, 1 cm and 2 cm cm throw, without the use of a 17 gauge introducer needle. The core specimens were placed in study media and submitted to the aircraft landing gear inspector service for delivery to Surgical Pathology. No tract embolization was performed. The 2 cm cores were cut in half, there are a total of 5 cores in the study media. The patient's skin was cleaned and dressed. The patient tolerated the entire procedure well without immediate complications. . Italia Norton PA-C, the Physician Apartment Rental Clerk, was present from the beginning to the end of the procedure. Italia MEJIA performed the biopsy. Dr. Chloe Zeng (residential program director) was present and participated in the procedure. IMPRESSION: 1. Successful ultrasound-guided core needle biopsy of left axillary lymph node. 2. Please see separate Surgical Pathology results for final interpretation. Electronically signed by: Italia Norton PA-C Sea Ocampo MD [facility] US PROCEDURES Final R esult * (ABNORMAL) Urinalysis reflex to microscopic and culture Urine (06/09/2025 2:25 PM INDUSTRIAL HYGIENE ENGINEER) Color, ur Yellow Yellow Clarity, ur Clear Clear [facility] Specific gravity, ur 1.018 1.003 - 1.030 [facility] pH, urine 6.5 [facility] Comment: Interpretive Data U rine pH is affected by diet, medications, systemic acid-base disturbances, and renal tubular function. pH may affect urinary stone formation. For example, urine pH below 6.0 may help reduce the tendency for calcium phosphate stones and pH greater than 6.0 may reduce the tendency for uric acid stone formation. Source: [facility] Current Interpretive Data was last revised on 2017 Protein, ur ql Negative Negative [facility] Glucose, ur ql 4+(A) Negative [facility] Ketones, ur Negative Negative [facility] Bilirubin, ur Negative Negative [facility] Blood, ur Negative Negative [facility] Urobilinogen, ur <2.0 <2.0 mg/dL [facility] Nitrite, ur Negative Negative [facility] Leukocyte esterase, ur Negative Negative [facility] UA reflex comment Reflex conditions for microscopic UA and culture not met. [facility] Urine 06/09/2025 2:25 PM INDUSTRIAL HYGIENE ENGINEER 06/09/2025 6:37 PM INDUSTRIAL HYGIENE ENGINEER Sea Ocampo MD LAB MICROBIOLOGY - GENERA L ORDERABLES Final Result Performing Organization Address [facility] de Phone Number BENJAMIN [address] [address] * eGFR (06/09/2025 10:05 AM INDUSTRIAL HYGIENE ENGINEER) Pathologist [facility] eGFR >90 >=60 mL/min/1. 73 m2 Comment: Interpretive Data Reference Interval Normal >/= 90 mL/min/1.73m2 Mildly decreased* 60 - 89 mL/min/1.73m2 Mildly to moderately decreased 45 - 59 mL/min/1.73m2 Moderately to severely decreased 30 - 44 mL/min/1.73m2 Severely decreased 15 - 29 mL/min/1.73m2 Kidney Failure < 15 mL/min/1.73m2 *Relative to young adult level Estimated glomerular filtration rate is determined by the 2020 CKD-EPI equation recommended by the National Kidney Foundation (A Unifying Approach to GFR Estimation: Recommendations of the NKF-ASK Task Force on Reassessing the Inclusion of Race in Diagnosing Kidney Disease, JASN 2020). The CKD-EPI equation should not be used for patients with unstable renal function and has not been validated in children and those over 70. Current interpretive data was last reviewed 2021. Blood 06/09/2025 10:0 5 AM INDUSTRIAL HYGIENE ENGINEER 06/09/2025 2:26 PM INDUSTRIAL HYGIENE ENGINEER Sea Ocampo MD LAB BLOOD ORDERABLES Lena l Result Performing Organization Address [facility] Co de Phone Number BENJAMIN [address] [place] [address] * (ABNORMAL) Differential, auto (06/09/2025 10:05 AM INDUSTRIAL HYGIENE ENGINEER) Pathologist [facility] Neutrophil abs 10.07(H) 1.50 - 6.50 K/cumm Imm gran abs 0.08 0.00 - 0.10 K/cumm [facility] Lymphocyte abs 0.85 0.80 - 3.30 K/cumm [facility] Monocyte abs 0.54 0.20 - 0.80 K/cumm [facility] Eosinophil abs 0.27 0.00 - 0.50 K/cumm [facility] Basophil abs 0.05 0.00 - 0.10 K/cumm [facility] Neutrophil pct 84.8 % [facility] Comment: Interpretive Data Percent cell count reference ranges are not reported, since discordance with absolute values may lead to misinterpretation of CBC data. Current Interpretive Data was last revised on 2017. Imm gran pct 0.7 % [facility] Comment: Interpretive Data Percent cell count reference ranges are not reported, since discordance with absolute values may lead to misinterpretation of CBC data. Current Interpretive Data was last revised on 2017. Lymphocyte pct 7.2 % [facility] Comment: Interpretive Data Percent cell count reference ranges are not reported, since discordance with absolute values may lead to misinterpretation of CBC data. Current Interpretive Data was last revised on 2017. Monocyte pct 4.6 % [facility] Comment: Interpretive Data Percent cell count reference ranges are not reported, since discordance with absolute values may lead to misinterpretation of CBC data. Current Interpretive Data was last revised on 2017. Eosinophil pct 2.3 % [facility] Comment: Interpretive Data Percent cell count reference ranges are not reported, since discordance with absolute values may lead to misinterpretation of CBC data. Current Interpretive Data was last revised on 2017. Basophil pct 0.4 % [facility] Comment: Interpretive Data Percent cell count reference ranges are not reported, since discordance with absolute values may lead to misinterpretation of CBC data. Current Interpretive Data was last revised on 2017. Blood 06/09/2025 10:0 5 AM INDUSTRIAL HYGIENE ENGINEER 06/09/2025 2:19 PM INDUSTRIAL HYGIENE ENGINEER us Sea Ocampo MD LAB BLOOD ORDERABLES Lena grimm Result BENJAMIN ROSARIO [address] [facility] Department [place] [address] * (ABNORMAL) CBC with auto differential (06/09/2025 10:05 AM INDUSTRIAL HYGIENE ENGINEER) [facility] WBC 11.86(H) 3.80 - 9.90 K/cumm Hgb 14.9 13.0 - 17.5 g/dL [facility] Hct 49.4 38.9 - 50.3 % [facility] Plt 296 150 - 400 K/cumm [facility] MPV 8.8(L) 9.1 - 12.3 fL [facility] RBC 6.29(H) 4.30 - 5.80 M/cumm [facility] MCV 78.5(L) 81.3 - 96.4 fL [facility] MCH 23.7(L) 27.1 - 33.3 pg [facility] MCHC 30.2(L) 32.3 - 35.7 g/dL [facility] RDW CV 22.0(H) 11.1 - 14.9 % [facility] RDW SD 58.5(H) 35.7 - 48.1 fL [facility] NRBC abs 0.00 0.00 - 0.01 K/cumm [facility] Blood 06/09/2025 10:0 5 AM INDUSTRIAL HYGIENE ENGINEER 06/09/2025 2:19 PM INDUSTRIAL HYGIENE ENGINEER Sea Ocampo MD LAB BLOOD ORDERABLES Lena l Result Performing Organization Address [facility] de Phone Number [address] [place] [address] * (ABNORMAL) aPTT (06/09/2025 10:05 AM INDUSTRIAL HYGIENE ENGINEER) [facility] aPTT 45(H) 22 - 37 sec Comment: Interpretive data aPTT test has not been evaluated for monitoring heparin therapy. The anti-Xa is the preferred test. Current interpretive data was last revised on 2019. Blood 06/09/2025 10:0 5 AM INDUSTRIAL HYGIENE ENGINEER 06/09/2025 2:18 PM INDUSTRIAL HYGIENE ENGINEER Sea Ocampo MD LAB BLOOD ORDERABLES Lena l Result Performing Organization Address City/[facility] Co de Phone Number [address] [place] [address] * (ABNORMAL) Protime-INR (06/09/2025 10:05 AM INDUSTRIAL HYGIENE ENGINEER) PT 17.20(H) 12.00 - 14.60 sec INR 1.40(H) 0.90 - 1.20 [facility] Comment: Interpretive data Oral anticoagulant therapeutic ranges: Venous thromboembolism prophylaxis or treatment: 2.0-3.0 CARDIOLOGY Standard range: 2.0-3.0 High-intensity range: 2.5-3.5 Refer to indication-specific guidelines for appropriate target ranges for prosthetic heart valve replacement. Current interpretive data was last revised on 2019. Blood 06/09/2025 10:0 5 AM INDUSTRIAL HYGIENE ENGINEER 06/09/2025 2:18 PM INDUSTRIAL HYGIENE ENGINEER us Sea Ocampo MD LAB BLOOD ORDERABLES Lena l Result Performing Organization Address [facility] de Phone Number [address] [employer] [address] * Uric acid (06/09/2025 10:05 AM INDUSTRIAL HYGIENE ENGINEER) Pathologist [facility] Uric acid 3.6 3.0 - 8.0 mg/dL Blood 06/09/2025 10:0 5 AM INDUSTRIAL HYGIENE ENGINEER 06/09/2025 2:26 PM INDUSTRIAL HYGIENE ENGINEER Sea Ocampo MD LAB BLOOD ORDERABLES Lena l Result Performing Organization Address City/[facility] Co de Phone Number [place] [address] [facility] [place] [address] * (ABNORMAL) Phosphorus (06/09/2025 10:05 AM INDUSTRIAL HYGIENE ENGINEER) Pathologist [facility] Phosphorus, pl 2.1(L) 2.3 - 4.5 mg/dL Blood 06/09/2025 10:0 5 AM INDUSTRIAL HYGIENE ENGINEER 06/09/2025 2:26 PM INDUSTRIAL HYGIENE ENGINEER us Sea Ocampo MD LAB BLOOD ORDERABLES Lena l Result Performing Organization Address City/[facility]/ZIP Co de Phone Number [address] [place] [address] * Magnesium (06/09/2025 10:05 AM INDUSTRIAL HYGIENE ENGINEER) Magnesium 2.0 1.4 - 2.5 mg/dL Blood 06/09/2025 10:0 5 AM INDUSTRIAL HYGIENE ENGINEER 06/09/2025 2:26 PM INDUSTRIAL HYGIENE ENGINEER Sea Ocampo MD LAB BLOOD ORDERABLES Lena l Result Performing Organization Address [facility] Co de Phone Number [address] [place] [address] * Lipase (06/09/2025 10:05 AM INDUSTRIAL HYGIENE ENGINEER) Lipase 21 10 - 99 Units/L Blood 06/09/2025 10:0 5 AM INDUSTRIAL HYGIENE ENGINEER 06/09/2025 2:26 PM INDUSTRIAL HYGIENE ENGINEER Sea Ocampo MD LAB BLOOD ORDERABLES Lena l Result Performing Organization Address [facility] Co de Phone Number [address] [place] [address] * Bilirubin, direct (06/09/2025 10:05 AM INDUSTRIAL HYGIENE ENGINEER) Pathologist [facility] Bilirubin, direct 0.2 0.1 - 0.3 mg/dL Blood 06/09/2025 10:0 5 AM INDUSTRIAL HYGIENE ENGINEER 06/09/2025 2:26 PM INDUSTRIAL HYGIENE ENGINEER Sea Ocampo MD LAB BLOOD ORDERABLES Lena l Result Performing Organization Address City/[facility]/ZIP Co de Phone Number [address] [place] [address] * Amylase (06/09/2025 10:05 AM INDUSTRIAL HYGIENE ENGINEER) Amylase 38 30 - 99 Units/L Blood 06/09/2025 10:0 5 AM INDUSTRIAL HYGIENE ENGINEER 06/09/2025 2:26 PM INDUSTRIAL HYGIENE ENGINEER us Sea Ocampo MD LAB BLOOD ORDERABLES Lena sirisha Result [facility] [address] [facility] [place] [address] * (ABNORMAL) Comprehensive metabolic panel (06/09/2025 10:05 AM INDUSTRIAL HYGIENE ENGINEER) Sodium 131(L) 135 - 145 mmol/L Potassium, pl 4.5 3.3 - 4.9 mmol/L [facility] Chloride 94(L) 97 - 110 mmol/L [facility] CO2 32 22 - 32 mmol/L [facility] Anion gap 5 2 - 15 mmol/L [facility] BUN 7 6 - 25 mg/dL [facility] Creatinine 0.69(L) 0.80 - 1.30 mg/dL [facility] Glucose 95 70 - 199 mg/dL [facility] Comment: Interpretive Data Fasting glucose >/= 126 mg/dl is diagnostic for diabetes. Fasting is defined as no caloric intake for at least 8 hours. Fasting glucose between 100 mg/dl to 125 mg/dl is diagnostic of prediabetes. In a patient with classic symptoms of hyperglycemia or hyperglycemic crisis, a random glucose >/= 200 mg/dl is diagnostic for diabetes. In the absence of unequivocal hyperglycemia, results should be confirmed by repeat testing. The classification and Diagnosis of Diabetes Diabetes Care 2021; 46: S19-S40. Current interpretive data was last revised 2022. Calcium 11.3(H) 8.5 - 10.3 mg/dL [facility] Bilirubin, total 0.4 0.1 - 1.2 mg/dL [facility] Protein, pl 7.3 6.5 - 8.5 g/dL [facility] Albumin 3.1(L) 3.5 - 5.0 g/dL [facility] Alk phos 78 40 - 130 Units/L [facility] ALT 14 7 - 55 Units/L [facility] AST 26 10 - 50 Units/L [facility] Blood 06/09/2025 10:0 5 AM INDUSTRIAL HYGIENE ENGINEER 06/09/2025 2:26 PM INDUSTRIAL HYGIENE ENGINEER us Sea Ocampo MD LAB BLOOD ORDERABLES Lena grimm Result [facility] [address] [facility] [place] [address] * MRI Brain W WO Contrast (06/06/2025 4:57 PM INDUSTRIAL HYGIENE ENGINEER) Anatomical Region Laterality Modality Head and Neck N/A Magnetic Resonan ce 06/07/2025 8:43 AM INDUSTRIAL HYGIENE ENGINEER Impressions 06/07/2025 4:23 PM INDUSTRIAL HYGIENE ENGINEER Interval decreased enhancement of treated left frontal rim-enhancing lesion without MR evidence of new intracranial metastases. Dictated by: Tye Wilson M.D. The radiology attending physician has personally reviewed this study, and had reviewed and/or edited this written report and agrees with it. Electronically signed by: Carlos Alberto Mai M.D. Ph.D. 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 TECHNIQUE: Multiplanar multi-weighted MRI of the brain and brainstem was performed without and with intravenous contrast using the general brain protocol. Contrast information: 16 mL Gadoterate Meglumine IV COMPARISON: MRI brain April 02, 2025 and March 05, 2025 FINDINGS: Redemonstrated is a left frontal rim-enhancing lesion with unchanged intrinsic T1 hyperintensity, susceptibility signal loss and adjacent T2 hyperintensity compatible with posttreatment changes. The degree of enhancement of the lesion has decreased since the prior study. There are no new enhancing lesions. There is an arachnoid cyst in in the right anterior temporal lobe which is unchanged. Scattered small foci of T2 prolongation in the periventricular and subcortical white matter are nonspecific, likely representing sequelae chronic small vessel ischemic change. The scalp and calvarium are normal. The superior sagittal sinus demonstrates normal venous flow. The corpus callosum is normal in shape and signal intensity. The posterior fossa is unremarkable. The pituitary and sella are normal. The brainstem and craniocervical junction are unremarkable. Diffusion weighted images reveal no hyperintensities to suggest acute cerebral infarction. The susceptibility weighted sequences reveal no evidence of acute or chronic hemorrhage. The ventricles are normal in size and position without evidence of hydrocephalus. The paranasal sinuses are normal. The visualized portions of the mastoids are unremarkable. The orbits appear normal. Normal flow voids are demonstrated in the carotid arteries and basilar artery. 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 TECHNIQUE: Multiplanar multi-weighted MRI of the brain and brainstem was performed without and with intravenous contrast using the general brain protocol. Contrast information: 16 mL Gadoterate Meglumine IV COMPARISON: MRI brain April 02, 2025 and March 05, 2025 FINDINGS: Redemonstrated is a left frontal rim-enhancing lesion with unchanged intrinsic T1 hyperintensity, susceptibility signal loss and adjacent T2 hyperintensity compatible with posttreatment changes. The degree of enhancement of the lesion has decreased since the prior study. There are no new enhancing lesions. There is an arachnoid cyst in in the right anterior temporal lobe which is unchanged. Scattered small foci of T2 prolongation in the periventricular and subcortical white matter are nonspecific, likely representing sequelae chronic small vessel ischemic change. The scalp and calvarium are normal. The superior sagittal sinus demonstrates normal venous flow. The corpus callosum is normal in shape and signal intensity. The posterior fossa is unremarkable. The pituitary and sella are normal. The brainstem and craniocervical junction are unremarkable. Diffusion weighted images reveal no hyperintensities to suggest acute cerebral infarction. The susceptibility weighted sequences reveal no evidence of acute or chronic hemorrhage. The ventricles are normal in size and position without evidence of hydrocephalus. The paranasal sinuses are normal. The visualized portions of the mastoids are unremarkable. The orbits appear normal. Normal flow voids are demonstrated in the carotid arteries and basilar artery. IMPRESSION: Interval decreased enhancement of treated left frontal rim-enhancing lesion without MR evidence of new intracranial metastases. Dictated by: Tye Wilson M.D. The radiology attending physician has personally reviewed this study, and had reviewed and/or edited this written report and agrees with it. Electronically signed by: Carlos Alberto Mai M.D. Ph.D. us Sea Ocampo MD IM MRI PROCEDURES Final Result * CT Chest Abdomen Pelvis W Contrast (06/06/2025 3:48 PM INDUSTRIAL HYGIENE ENGINEER) Anatomical Region Laterality Modality Body N/A Computed Tomogra phy 06/06/2025 4:37 PM INDUSTRIAL HYGIENE ENGINEER Impressions 06/06/2025 4:37 PM INDUSTRIAL HYGIENE ENGINEER 1. Similar metastatic disease in the chest involving a large infiltrative mass at the left lung hilum obstructing the left mainstem bronchus with collapse of the left lung, as well as multifocal pleural nodules with large malignant effusion, mediastinal and left axillary lymphadenopathy, and erosive right first rib mass. 2. Interval worsened metastatic disease in the abdomen/pelvis with enlarging intraperitoneal nodules and similar bilateral renal metastatic lesions and retroperitoneal lymphadenopathy. 3. Possible left lower lobe pneumonia. Electronically signed by: Flaco Lucia MD Narrative 06/06/2025 4:37 PM INDUSTRIAL HYGIENE ENGINEER EXAMINATION: Computed tomography of the chest, abdomen and pelvis with intravenous contrast HISTORY: Patient is 59 years old and Male with history of squamous cell carcinoma undergoing baseline evaluation prior to treatment. TECHNIQUE: Transaxial computed tomographic images of the chest, abdomen and pelvis were obtained with intravenous contrast according to the standard protocol after the administration of 68 mL Opti-Ray 350 intravenous contrast. COMPARISON: 05/15/2025 CT chest and 05/12/2025 CT chest abdomen pelvis FINDINGS: Chest: Grossly similar large infiltrative mass centered at the left lung hilum encasing and obstructing the left mainstem bronchus measuring approximately 8.0 x 6.3 x 6.9 cm (series 3 images 85 and 92 and series 4 image 68). There is associated complete collapse of the left lung with relative hypoattenuation of the left lower lobe. There are multiple left pleural nodules, the largest measuring 2.8 cm nodule at the left posterolateral apical pleura tethering/involving the adjacent lung parenchyma. There is a large left pleural effusion with trace air and a drain at the left pleural base. There are enlarged mediastinal and left axillary lymph nodes measuring up to 3.1 cm in short axis. No suspicious pulmonary nodule in the right lung. Mild emphysema in the right upper lobe. Few calcifications in the hilum of the right upper lobe and partially calcified right hilar lymph node. A right chest port terminates at the inferior right atrium. Coronary artery calcifications. Similar destructive/erosive lesion of the right anterior first rib. Subacute mildly displaced fracture of the left posterolateral third and fourth ribs. Degenerative changes of the spine. Abdomen/Pelvis: The liver is normal. The gallbladder is surgically absent. Nordheim effect in the otherwise normal bile ducts. The pancreas is normal. Similar 4.1 cm and 0.7 cm hypoattenuating lesions in the spleen. There is a similar 1.8 cm left adrenal nodule. The right adrenal gland is normal. Bilateral infiltrative metastatic lesions in the kidneys are similar to prior with the largest measuring approximately 3.8 x 2.5 cm at the lower pole of the left kidney, previously 3.4 x 2.9 cm. A punctate nonobstructive and calcification is present in the right kidney. The ureters, bladder, prostate are normal. No abnormal bowel dilation. There are prominent retroperitoneal lymph nodes measuring up to 1.4 cm in short axis in the left periaortic region. There is severe atherosclerotic plaque in the aorta and branch vessels. There are multiple intraperitoneal nodules. For reference, the largest nodules are in the omentum measuring 1.4 cm adjacent to the mid transverse colon (series 3 image 176), previously 8 mm, and 1.7 cm anterior to the ascending colon, previously 1.0 cm. Procedure Note Cyril Lucia-Price Cox MD - 06/06/2025 EXAMINATION: Computed tomography of the chest, abdomen and pelvis with intravenous contrast HISTORY: Patient is 59 years old and Male with history of squamous cell carcinoma undergoing baseline evaluation prior to treatment. TECHNIQUE: Transaxial computed tomographic images of the chest, abdomen and pelvis were obtained with intravenous contrast according to the standard protocol after the administration of 68 mL Opti-Ray 350 intravenous contrast. COMPARISON: 05/15/2025 CT chest and 05/12/2025 CT chest abdomen pelvis FINDINGS: Chest: Grossly similar large infiltrative mass centered at the left lung hilum encasing and obstructing the left mainstem bronchus measuring approximately 8.0 x 6.3 x 6.9 cm (series 3 images 85 and 92 and series 4 image 68). There is associated complete collapse of the left lung with relative hypoattenuation of the left lower lobe. There are multiple left pleural nodules, the largest measuring 2.8 cm nodule at the left posterolateral apical pleura tethering/involving the adjacent lung parenchyma. There is a large left pleural effusion with trace air and a drain at the left pleural base. There are enlarged mediastinal and left axillary lymph nodes measuring up to 3.1 cm in short axis. No suspicious pulmonary nodule in the right lung. Mild emphysema in the right upper lobe. Few calcifications in the hilum of the right upper lobe and partially calcified right hilar lymph node. A right chest port terminates at the inferior right atrium. Coronary artery calcifications. Similar destructive/erosive lesion of the right anterior first rib. Subacute mildly displaced fracture of the left posterolateral third and fourth ribs. Degenerative changes of the spine. Abdomen/Pelvis: The liver is normal. The gallbladder is surgically absent. Nordheim effect in the otherwise normal bile ducts. The pancreas is normal. Similar 4.1 cm and 0.7 cm hypoattenuating lesions in the spleen. There is a similar 1.8 cm left adrenal nodule. The right adrenal gland is normal. Bilateral infiltrative metastatic lesions in the kidneys are similar to prior with the largest measuring approximately 3.8 x 2.5 cm at the lower pole of the left kidney, previously 3.4 x 2.9 cm. A punctate nonobstructive and calcification is present in the right kidney. The ureters, bladder, prostate are normal. No abnormal bowel dilation. There are prominent retroperitoneal lymph nodes measuring up to 1.4 cm in short axis in the left periaortic region. There is severe atherosclerotic plaque in the aorta and branch vessels. There are multiple intraperitoneal nodules. For reference, the largest nodules are in the omentum measuring 1.4 cm adjacent to the mid transverse colon (series 3 image 176), previously 8 mm, and 1.7 cm anterior to the ascending colon, previously 1.0 cm. IMPRESSION: 1. Similar metastatic disease in the chest involving a large infiltrative mass at the left lung hilum obstructing the left mainstem bronchus with collapse of the left lung, as well as multifocal pleural nodules with large malignant effusion, mediastinal and left axillary lymphadenopathy, and erosive right first rib mass. 2. Interval worsened metastatic disease in the abdomen/pelvis with enlarging intraperitoneal nodules and similar bilateral renal metastatic lesions and retroperitoneal lymphadenopathy. 3. Possible left lower lobe pneumonia. Electronically signed by: Flaco Lucia MD Sea Ocampo MD IMG CT PROCEDURES Final R esult * eGFR (06/06/2025 1:50 PM INDUSTRIAL HYGIENE ENGINEER) eGFR >90 >=60 mL/min/1. 73 m2 Comment: Interpretive Data Reference Interval Normal >/= 90 mL/min/1.73m2 Mildly decreased* 60 - 89 mL/min/1.73m2 Mildly to moderately decreased 45 - 59 mL/min/1.73m2 Moderately to severely decreased 30 - 44 mL/min/1.73m2 Severely decreased 15 - 29 mL/min/1.73m2 Kidney Failure < 15 mL/min/1.73m2 *Relative to young adult level Estimated glomerular filtration rate is determined by the 2020 CKD-EPI equation recommended by the National Kidney Foundation (A Unifying Approach to GFR Estimation: Recommendations of the NKF-ASK Task Force on Reassessing the Inclusion of Race in Diagnosing Kidney Disease, JASN 2020). The CKD-EPI equation should not be used for patients with unstable renal function and has not been validated in children and those over 70. Current interpretive data was last reviewed 2021. Blood 06/06/2025 1:50 PM INDUSTRIAL HYGIENE ENGINEER 06/06/2025 1:52 PM INDUSTRIAL HYGIENE ENGINEER us Sea Ocampo MD LAB BLOOD ORDERABLES Lena l Result [facility] Department [place] [address] * (ABNORMAL) Vitamin D 25 hydroxy (06/06/2025 1:50 PM INDUSTRIAL HYGIENE ENGINEER) Vitamin D 25-OH 11(L) 30 - 80 ng/mL Blood 06/06/2025 1:50 PM INDUSTRIAL HYGIENE ENGINEER 06/06/2025 4:06 PM INDUSTRIAL HYGIENE ENGINEER Sea Ocampo MD LAB BLOOD ORDERABLES Lena l Result [facility] Department [place] [address] * (ABNORMAL) Basic metabolic panel (06/06/2025 1:50 PM INDUSTRIAL HYGIENE ENGINEER) Pathologist [facility] Sodium 131(L) 135 - 145 mmol/L Potassium, pl 4.2 3.3 - 4.9 mmol/L [facility] Chloride 95(L) 97 - 110 mmol/L [facility] CO2 29 22 - 32 mmol/L [facility] Anion gap 7 2 - 15 mmol/L [facility] BUN 13 6 - 25 mg/dL [facility] Creatinine 0.82 0.80 - 1.30 mg/dL [facility] Glucose 127 70 - 199 mg/dL [facility] Comment: Interpretive Data Fasting glucose >/= 126 mg/dl is diagnostic for diabetes. Fasting is defined as no caloric intake for at least 8 hours. Fasting glucose between 100 mg/dl to 125 mg/dl is diagnostic of prediabetes. In a patient with classic symptoms of hyperglycemia or hyperglycemic crisis, a random glucose >/= 200 mg/dl is diagnostic for diabetes. In the absence of unequivocal hyperglycemia, results should be confirmed by repeat testing. The classification and Diagnosis of Diabetes Diabetes Care 2021; 46: S19-S40. Current interpretive data was last revised 2022. Calcium 6.6(L) 8.5 - 10.3 mg/dL [facility] Blood 06/06/2025 1:50 PM INDUSTRIAL HYGIENE ENGINEER 06/06/2025 1:52 PM INDUSTRIAL HYGIENE ENGINEER us Sea Ocampo MD LAB BLOOD ORDERABLES Lena l Result [facility] [place] [address] * (ABNORMAL) Urinalysis reflex to microscopic (06/03/2025 4:56 PM INDUSTRIAL HYGIENE ENGINEER) [facility] Color, ur Straw Yellow Clarity, ur Clear Clear [facility] Specific gravity, ur 1.012 1.003 - 1.030 [facility] pH, urine 7.0 [facility] Comment: Interpretive Data U rine pH is affected by diet, medications, systemic acid-base disturbances, and renal tubular function. pH may affect urinary stone formation. For example, urine pH below 6.0 may help reduce the tendency for calcium phosphate stones and pH greater than 6.0 may reduce the tendency for uric acid stone formation. Source: [facility] Current Interpretive Data was last revised on 2017 Protein, ur ql Negative Negative [facility] Glucose, ur ql 4+(A) Negative [facility] Ketones, ur Negative Negative [facility] Bilirubin, ur Negative Negative [facility] Blood, ur 2+(A) Negative [facility] Urobilinogen, ur <2.0 <2.0 mg/dL [facility] Nitrite, ur Negative Negative [facility] Leukocyte esterase, ur Negative Negative [facility] UA reflex comment Reflex to microscopic UA will be performed. [facility] Urine 06/03/2025 4:56 PM INDUSTRIAL HYGIENE ENGINEER 06/03/2025 8:20 PM INDUSTRIAL HYGIENE ENGINEER Sea Ocampo MD LAB URINE ORDERABLES Lena l Result Performing Organization Address City/[facility]/ZIP Co de Phone Number [facility] [place] [address] * (ABNORMAL) Urinalysis, microscopic only (06/03/2025 4:56 PM INDUSTRIAL HYGIENE ENGINEER) WBC, ur 0-5 0 - 5 /HPF RBC, ur 6-10(A) 0 - 2 /HPF [facility] Epithelial cells, squamous, ur 1-5 0 - 5 /HPF [facility] Bacteria, ur Trace(A) [facility] Yeast, ur 1+(A) [facility] Mucous, ur Present(A) [facility] Urine 06/03/2025 4:56 PM INDUSTRIAL HYGIENE ENGINEER 06/03/2025 8:20 PM INDUSTRIAL HYGIENE ENGINEER Sea Ocampo MD LAB URINE ORDERABLES Lena l Result [facility] [place] [address] * eGFR (06/03/2025 4:52 PM INDUSTRIAL HYGIENE ENGINEER) Pathologist [facility] eGFR >90 >=60 mL/min/1. 73 m2 Comment: Interpretive Data Reference Interval Normal >/= 90 mL/min/1.73m2 Mildly decreased* 60 - 89 mL/min/1.73m2 Mildly to moderately decreased 45 - 59 mL/min/1.73m2 Moderately to severely decreased 30 - 44 mL/min/1.73m2 Severely decreased 15 - 29 mL/min/1.73m2 Kidney Failure < 15 mL/min/1.73m2 *Relative to young adult level Estimated glomerular filtration rate is determined by the 2020 CKD-EPI equation recommended by the National Kidney Foundation (A Unifying Approach to GFR Estimation: Recommendations of the NKF-ASK Task Force on Reassessing the Inclusion of Race in Diagnosing Kidney Disease, JASN 2020). The CKD-EPI equation should not be used for patients with unstable renal function and has not been validated in children and those over 70. Current interpretive data was last reviewed 2021. Blood 06/03/2025 4:52 PM INDUSTRIAL HYGIENE ENGINEER 06/03/2025 8:46 PM INDUSTRIAL HYGIENE ENGINEER us Sea Ocampo MD LAB BLOOD ORDERABLES Lena grimm Result [facility] [place] [address] * (ABNORMAL) Basic metabolic panel (06/03/2025 4:52 PM INDUSTRIAL HYGIENE ENGINEER) Pathologist [facility] Sodium 132(L) 135 - 145 mmol/L Potassium, pl 3.9 3.3 - 4.9 mmol/L [facility] Chloride 98 97 - 110 mmol/L [facility] CO2 27 22 - 32 mmol/L [facility] Anion gap 7 2 - 15 mmol/L [facility] BUN 9 6 - 25 mg/dL [facility] Creatinine 0.69(L) 0.80 - 1.30 mg/dL [facility] Glucose 100 70 - 199 mg/dL [facility] Comment: Interpretive Data Fasting glucose >/= 126 mg/dl is diagnostic for diabetes. Fasting is defined as no caloric intake for at least 8 hours. Fasting glucose between 100 mg/dl to 125 mg/dl is diagnostic of prediabetes. In a patient with classic symptoms of hyperglycemia or hyperglycemic crisis, a random glucose >/= 200 mg/dl is diagnostic for diabetes. In the absence of unequivocal hyperglycemia, results should be confirmed by repeat testing. The classification and Diagnosis of Diabetes Diabetes Care 202; 46: S19-S40. Current interpretive data was last revised 2022. Calcium 11.5(H) 8.5 - 10.3 mg/dL [facility] Blood 06/03/2025 4:52 PM INDUSTRIAL HYGIENE ENGINEER 06/03/2025 4:52 PM INDUSTRIAL HYGIENE ENGINEER us Sea Ocampo MD LAB BLOOD ORDERABLES Lena grimm Result [facility] [place] [address] * eGFR (06/02/2025 2:44 PM INDUSTRIAL HYGIENE ENGINEER) eGFR >90 >=60 mL/min/1. 73 m2 Comment: Interpretive Data Reference Interval Normal >/= 90 mL/min/1.73m2 Mildly decreased* 60 - 89 mL/min/1.73m2 Mildly to moderately decreased 45 - 59 mL/min/1.73m2 Moderately to severely decreased 30 - 44 mL/min/1.73m2 Severely decreased 15 - 29 mL/min/1.73m2 Kidney Failure < 15 mL/min/1.73m2 *Relative to young adult level Estimated glomerular filtration rate is determined by the 2020 CKD-EPI equation recommended by the National Kidney Foundation (A Unifying Approach to GFR Estimation: Recommendations of the NKF-ASK Task Force on Reassessing the Inclusion of Race in Diagnosing Kidney Disease, JASN 2020). The CKD-EPI equation should not be used for patients with unstable renal function and has not been validated in children and those over 70. Current interpretive data was last reviewed 2021. Blood 06/02/2025 2:44 PM INDUSTRIAL HYGIENE ENGINEER 06/02/2025 2:48 PM INDUSTRIAL HYGIENE ENGINEER us Sea Ocampo MD LAB BLOOD ORDERABLES Lena grimm Result [facility] [place] [address] * (ABNORMAL) Differential, auto (06/02/2025 2:44 PM INDUSTRIAL HYGIENE ENGINEER) Neutrophil abs 7.67(H) 1.50 - 6.50 K/cumm Comment:Testing performed by : [facility], [address] [place] [phone] Lymphocyte abs 1.43 0.80 - 3.30 K/cumm [facility] Comment:Testing performed by : [facility], [address] [place] [phone] Monocyte abs 0.76 0.20 - 0.80 K/cumm [facility] Comment:Testing performed by : [facility], [address] [place] [phone] Eosinophil abs 0.20 0.00 - 0.50 K/cumm [facility] Comment:Testing performed by : [facility], [address] [place] [phone] Basophil abs 0.10 0.00 - 0.10 K/cumm [facility] Comment:Testing performed by : [facility], [address] [place] [phone] Neutrophil pct 75.5 % [facility] Comment: Interpretive Data Percent cell count reference ranges are not reported, since discordance with absolute values may lead to misinterpretation of CBC data. Current Interpretive Data was last revised on 2017. Testing performed by: [facility], [address] [place] [phone] Lymphocyte pct 14.1 % C[facility]ER [facility] Comment: Interpretive Data Percent cell count reference ranges are not reported, since discordance with absolute values may lead to misinterpretation of CBC data. Current Interpretive Data was last revised on 2017. Testing performed by: [facility], [address] [place] [phone] Monocyte pct 7.5 % BNEJAMIN CARRION Comment: Interpretive Data Percent cell count reference ranges are not reported, since discordance with absolute values may lead to misinterpretation of CBC data. Current Interpretive Data was last revised on 2017. Testing performed by: [facility], [address] [place] [phone] Eosinophil pct 2.0 % BENJAMIN CARRION Comment: Interpretive Data Percent cell count reference ranges are not reported, since discordance with absolute values may lead to misinterpretation of CBC data. Current Interpretive Data was last revised on 2017. Testing performed by: [facility], [address] [place] [phone] Basophil pct 1.0 % BENJAMIN CARRION Comment: Interpretive Data Percent cell count reference ranges are not reported, since discordance with absolute values may lead to misinterpretation of CBC data. Current Interpretive Data was last revised on 2017. Testing performed by: [facility], [address] [place] [phone] Blood 06/02/2025 2:44 PM INDUSTRIAL HYGIENE ENGINEER 06/02/2025 2:46 PM INDUSTRIAL HYGIENE ENGINEER us Sea Ocampo MD LAB BLOOD ORDERABLES Lena l Result BENJAMIN C[facility] [place] [address] * (ABNORMAL) CBC with auto differential (06/02/2025 2:44 PM INDUSTRIAL HYGIENE ENGINEER) WBC 10.16(H) 3.80 - 9.90 K/cumm Comment:Testing performed by : [facility], [address] [place] [phone] Hgb 14.7 13.0 - 17.5 g/dL BENJAMIN CARRION Comment:Testing performed by : [facility], [address] [place], [place] [phone] Hct 46.9 38.9 - 50.3 % CERNER [facility] Comment:Testing performed by : [facility], [address] [place], [place] [phone] Plt 280 150 - 400 K/cumm CERNER [facility] Comment:Testing performed by : [facility], [address] [place], [place] [phone] MPV 6.7(L) 6.8 - 10.4 fL CERNER [facility] Comment:Testing performed by : [facility], [address] [place], [place] [phone] RBC 6.37(H) 4.30 - 5.80 M/cumm CERNER [facility] Comment:Testing performed by : [facility], [address] [place], [place] [phone] MCV 73.6(L) 81.3 - 96.4 fL CERNER [facility] Comment:Testing performed by : [facility], [address] [place], [place] [phone] MCH 23.0(L) 27.1 - 33.3 pg C[facility]ER [facility] Comment:Testing performed by : [facility], [address] [place], [place] [phone] MCHC 31.3(L) 32.3 - 35.7 g/dL C[facility]ER [facility] Comment:Testing performed by : [facility], [address] [place], [place] [phone] RDW CV 21.0(H) 11.1 - 14.9 % CERNER [facility] Comment:Testing performed by : [facility], [address] [place], [place] [phone] NRBC abs 0.00 0.00 - 0.01 K/cumm C[facility]ER [facility] Comment:Testing performed by : [facility], [address] [place], [place] [phone] Blood 06/02/2025 2:44 PM INDUSTRIAL HYGIENE ENGINEER 06/02/2025 2:46 PM INDUSTRIAL HYGIENE ENGINEER us Sea Ocampo MD LAB BLOOD ORDERABLES Lena l Result Performing Organization Address [facility] Co de Phone Number [facility] [place] [address] * aPTT (06/02/2025 2:44 PM INDUSTRIAL HYGIENE ENGINEER) aPTT 32 26 - 38 sec Comment: Interpretive Data Heparin therapeutic range: 66.0 - 100.0 seconds. Range based on correlation with therapeutic heparin activity range of 0.3 - 0.7 Units/mL. Blood 06/02/2025 2:44 PM INDUSTRIAL HYGIENE ENGINEER 06/02/2025 3:27 PM INDUSTRIAL HYGIENE ENGINEER Sea Ocampo MD LAB BLOOD ORDERABLES Lena l Result Performing Organization Address [facility] Phone Number [facility] [place] [address] * (ABNORMAL) Protime-INR (06/02/2025 2:44 PM INDUSTRIAL HYGIENE ENGINEER) PT 15.5(H) 10.2 - 13.5 sec INR 1.38(H) 0.90 - 1.20 [facility] Comment: Interpretive data Oral anticoagulant therapeutic ranges: Venous thromboembolism prophylaxis or treatment: 2.0-3.0 CARDIOLOGY Standard range: 2.0-3.0 High-intensity range: 2.5-3.5 Refer to indication-specific guidelines for appropriate target ranges for prosthetic heart valve replacement. Current interpretive data was last revised on 2019. Blood 06/02/2025 2:44 PM INDUSTRIAL HYGIENE ENGINEER 06/02/2025 3:27 PM INDUSTRIAL HYGIENE ENGINEER Result [facility] Sea Ocampo MD LAB BLOOD ORDERABLES Lena l Result Performing Organization Address [facility] Co de Phone Number [facility] [place] [address] * Bilirubin, total and direct (06/02/2025 2:44 PM INDUSTRIAL HYGIENE ENGINEER) Pathologist [facility] Bilirubin, total See Comment 0.1 - 1.2 mg/dL Comment:Credited, duplicate test. Bilirubin, direct 0.2 0.1 - 0.3 mg/dL [facility] Blood 06/02/2025 2:44 PM INDUSTRIAL HYGIENE ENGINEER 06/02/2025 2:48 PM INDUSTRIAL HYGIENE ENGINEER us Sea Ocampo MD LAB BLOOD ORDERABLES Lena l Result Performing Organization Address City/[facility] Co de Phone Number [facility] [place] [address] * Uric acid (06/02/2025 2:44 PM INDUSTRIAL HYGIENE ENGINEER) [facility] Uric acid 4.2 3.0 - 8.0 mg/dL Blood 06/02/2025 2:44 PM INDUSTRIAL HYGIENE ENGINEER 06/02/2025 2:48 PM INDUSTRIAL HYGIENE ENGINEER Sea Ocampo MD LAB BLOOD ORDERABLES Lena l Result Performing Organization Address [facility] Co de Phone Number [facility] [place] [address] * TSH (06/02/2025 2:44 PM INDUSTRIAL HYGIENE ENGINEER) [facility] Thyroid Stimulating Hormone 3.17 0.30 - 4.20 mcIUnit/mL Blood 06/02/2025 2:44 PM INDUSTRIAL HYGIENE ENGINEER 06/02/2025 2:48 PM INDUSTRIAL HYGIENE ENGINEER Result [facility] Sea Ocampo MD LAB BLOOD ORDERABLES Lena l Result Performing Organization Address [facility] Co de Phone Number [facility] [place] [address] * T4, free (06/02/2025 2:44 PM INDUSTRIAL HYGIENE ENGINEER) [facility] Free T4 1.05 0.90 - 1.70 ng/dL Blood 06/02/2025 2:44 PM INDUSTRIAL HYGIENE ENGINEER 06/02/2025 2:48 PM INDUSTRIAL HYGIENE ENGINEER us Sea Ocampo MD LAB BLOOD ORDERABLES Lena l Result Performing Organization Address [facility] Co de Phone Number [facility] [place] [address] * Phosphorus (06/02/2025 2:44 PM INDUSTRIAL HYGIENE ENGINEER) Phosphorus, pl 2.5 2.3 - 4.5 mg/dL Blood 06/02/2025 2:44 PM INDUSTRIAL HYGIENE ENGINEER 06/02/2025 2:48 PM INDUSTRIAL HYGIENE ENGINEER us Sea Ocampo MD LAB BLOOD ORDERABLES Lena l Result Performing Organization Address [facility] [place] [address] * Magnesium (06/02/2025 2:44 PM INDUSTRIAL HYGIENE ENGINEER) Magnesium 2.0 1.4 - 2.5 mg/dL Blood 06/02/2025 2:44 PM INDUSTRIAL HYGIENE ENGINEER 06/02/2025 2:48 PM INDUSTRIAL HYGIENE ENGINEER us Sea Ocampo MD LAB BLOOD ORDERABLES Lena l Result Performing Organization Address [facility] [place] [address] * Lipase (06/02/2025 2:44 PM INDUSTRIAL HYGIENE ENGINEER) Lipase 17 10 - 99 Units/L Blood 06/02/2025 2:44 PM INDUSTRIAL HYGIENE ENGINEER 06/02/2025 2:48 PM INDUSTRIAL HYGIENE ENGINEER us Sea Ocampo MD LAB BLOOD ORDERABLES Lena l Result Performing Organization Address [facility]/ZIP Co de Phone Number [facility] [place] [address] * Amylase (06/02/2025 2:44 PM INDUSTRIAL HYGIENE ENGINEER) Pathologist [facility] Amylase 31 30 - 99 Units/L Blood 06/02/2025 2:44 PM INDUSTRIAL HYGIENE ENGINEER 06/02/2025 2:48 PM INDUSTRIAL HYGIENE ENGINEER Sea Ocampo MD LAB BLOOD ORDERABLES Lena l Result [facility] [place] [address] * (ABNORMAL) Comprehensive metabolic panel (06/02/2025 2:44 PM INDUSTRIAL HYGIENE ENGINEER) Pathologist [facility] Sodium 133(L) 135 - 145 mmol/L Potassium, pl 5.0(H) 3.3 - 4.9 mmol/L [facility] Chloride 94(L) 97 - 110 mmol/L [facility] CO2 34(H) 22 - 32 mmol/L [facility] Anion gap 5 2 - 15 mmol/L [facility] BUN 11 6 - 25 mg/dL [facility] Creatinine 0.83 0.80 - 1.30 mg/dL [facility] Glucose 99 70 - 199 mg/dL [facility] Comment: Interpretive Data Fasting glucose >/= 126 mg/dl is diagnostic for diabetes. Fasting is defined as no caloric intake for at least 8 hours. Fasting glucose between 100 mg/dl to 125 mg/dl is diagnostic of prediabetes. In a patient with classic symptoms of hyperglycemia or hyperglycemic crisis, a random glucose >/= 200 mg/dl is diagnostic for diabetes. In the absence of unequivocal hyperglycemia, results should be confirmed by repeat testing. The classification and Diagnosis of Diabetes Diabetes Care 202; 46: S19-S40. Current interpretive data was last revised 2022. Calcium 13.1(H) 8.5 - 10.3 mg/dL [facility] Bilirubin, total 0.4 0.1 - 1.2 mg/dL [facility] Protein, pl 7.7 6.5 - 8.5 g/dL [facility] Albumin 3.3(L) 3.5 - 5.0 g/dL [facility] Alk phos 80 40 - 130 Units/L [facility] ALT 15 7 - 55 Units/L [facility] AST 30 10 - 50 Units/L [facility] Blood 06/02/2025 2:44 PM INDUSTRIAL HYGIENE ENGINEER 06/02/2025 2:48 PM INDUSTRIAL HYGIENE ENGINEER Sea Ocampo MD LAB BLOOD ORDERABLES Lena l Result [facility] [place] [address] * (ABNORMAL) Urinalysis reflex to microscopic and culture Urine (05/29/2025 10:25 AM INDUSTRIAL HYGIENE ENGINEER) Color, ur Straw Yellow Clarity, ur Clear Clear [facility] Specific gravity, ur 1.026 1.003 - 1.030 [facility] pH, urine 6.0 [facility] Comment: Interpretive Data U rine pH is affected by diet, medications, systemic acid-base disturbances, and renal tubular function. pH may affect urinary stone formation. For example, urine pH below 6.0 may help reduce the tendency for calcium phosphate stones and pH greater than 6.0 may reduce the tendency for uric acid stone formation. Source: [facility] Current Interpretive Data was last revised on 2017 Protein, ur ql Negative Negative [facility] Glucose, ur ql 4+(A) Negative [facility] Ketones, ur Negative Negative [facility] Bilirubin, ur Negative Negative [facility] Blood, ur 2+(A) Negative [facility] Urobilinogen, ur <2.0 <2.0 mg/dL [facility] Nitrite, ur Negative Negative [facility] Leukocyte esterase, ur Negative [facility] UA reflex comment Reflex to microscopic UA will be performed. [facility] Urine 05/29/2025 10:2 5 AM INDUSTRIAL HYGIENE ENGINEER 05/29/2025 10:30 AM INDUSTRIAL HYGIENE ENGINEER us Sea Ocampo MD LAB MICROBIOLOGY - GENERA L ORDERABLES Final Result Performing Organization Address [facility] Co de Phone Number BENJAMIN [facility] [place] [address] * (ABNORMAL) Urinalysis, microscopic only (05/29/2025 10:25 AM INDUSTRIAL HYGIENE ENGINEER) WBC, ur 0-5 0 - 5 /HPF RBC, ur 21-50(A) 0 - 2 /HPF [facility] Epithelial cells, squamous, ur 1-5 0 - 5 /HPF [facility] Mucous, ur Present(A) [facility] Calcium oxalate crystals, ur 2+(A) [facility] Mixed cellular cast, ur 1-5(A) 0 - 0 /LPF [facility] Culture Reflex Comment Reflex conditions for urine culture (WBC >10) not met. [facility] Urine 05/29/2025 10:2 5 AM INDUSTRIAL HYGIENE ENGINEER 05/29/2025 10:30 AM INDUSTRIAL HYGIENE ENGINEER Sea Ocampo MD LAB URINE ORDERABLES Lena l Result Performing Organization Address [facility] Co de Phone Number BENJAMIN [facility] [place] [address] * eGFR (05/29/2025 10:14 AM INDUSTRIAL HYGIENE ENGINEER) eGFR >90 >=60 mL/min/1. 73 m2 Comment: Interpretive Data Reference Interval Normal >/= 90 mL/min/1.73m2 Mildly decreased* 60 - 89 mL/min/1.73m2 Mildly to moderately decreased 45 - 59 mL/min/1.73m2 Moderately to severely decreased 30 - 44 mL/min/1.73m2 Severely decreased 15 - 29 mL/min/1.73m2 Kidney Failure < 15 mL/min/1.73m2 *Relative to young adult level Estimated glomerular filtration rate is determined by the 2020 CKD-EPI equation recommended by the National Kidney [employer] (A Unifying Approach to GFR Estimation: Recommendations of the NKF-ASK Task Force on Reassessing the Inclusion of Race in Diagnosing Kidney Disease, JASN 2020). The CKD-EPI equation should not be used for patients with unstable renal function and has not been validated in children and those over 70. Current interpretive data was last reviewed 2021. Blood 05/29/2025 10:1 4 AM INDUSTRIAL HYGIENE ENGINEER 05/29/2025 10:27 AM INDUSTRIAL HYGIENE ENGINEER us Sea Ocampo MD LAB BLOOD ORDERABLES Lena sirisha Result [facility] [place] [address] * (ABNORMAL) Differential, auto (05/29/2025 10:14 AM INDUSTRIAL HYGIENE ENGINEER) Neutrophil abs 5.77 1.50 - 6.50 K/cumm Comment:Testing performed by : [facility], [address] [place], [place] [phone] Lymphocyte abs 1.43 0.80 - 3.30 K/cumm [facility] Comment:Testing performed by : [facility], [address] [place] [phone] Monocyte abs 0.72 0.20 - 0.80 K/cumm [facility] Comment:Testing performed by : [facility], [address] [place] [phone] Eosinophil abs 0.51(H) 0.00 - 0.50 K/cumm [facility] Comment:Testing performed by : [facility], [address] [place], [place] [phone] Basophil abs 0.07 0.00 - 0.10 K/cumm [facility] Comment:Testing performed by : [facility], [address] [place] [phone] Neutrophil pct 67.9 % [facility] Comment: Interpretive Data Percent cell count reference ranges are not reported, since discordance with absolute values may lead to misinterpretation of CBC data. Current Interpretive Data was last revised on 2017. Testing performed by: [facility], [address] [place] [phone] Lymphocyte pct 16.9 % [facility]ER[facility] Comment: Interpretive Data Percent cell count reference ranges are not reported, since discordance with absolute values may lead to misinterpretation of CBC data. Current Interpretive Data was last revised on 2017. Testing performed by: [facility], [address] [place] [phone] Monocyte pct 8.4 % BENJAMIN C[facility] Comment: Interpretive Data Percent cell count reference ranges are not reported, since discordance with absolute values may lead to misinterpretation of CBC data. Current Interpretive Data was last revised on 2017. Testing performed by: [facility], [address] [place] [phone] Eosinophil pct 6.0 % CERBOUBACAR [facility] Comment: Interpretive Data Percent cell count reference ranges are not reported, since discordance with absolute values may lead to misinterpretation of CBC data. Current Interpretive Data was last revised on 2017. Testing performed by: [facility], [address] [place] [phone] Basophil pct 0.8 % [facility]AR [facility] Comment: Interpretive Data Percent cell count reference ranges are not reported, since discordance with absolute values may lead to misinterpretation of CBC data. Current Interpretive Data was last revised on 2017. Testing performed by: [facility], [address] [place] [phone] Blood 05/29/2025 10:1 4 AM INDUSTRIAL HYGIENE ENGINEER 05/29/2025 10:24 AM INDUSTRIAL HYGIENE ENGINEER us Sea Ocampo MD LAB BLOOD ORDERABLES Lena l Result [facility] [place] [address] * (ABNORMAL) CBC with auto differential (05/29/2025 10:14 AM INDUSTRIAL HYGIENE ENGINEER) WBC 8.49 3.80 - 9.90 K/cumm Comment:Testing performed by : [facility], [address] [place] [address] Hgb 13.1 13.0 - 17.5 g/dL [facility] Comment:Testing performed by : [facility], [address] [place] [address] Hct 41.3 38.9 - 50.3 % [facility] Comment:Testing performed by : [facility], [address] [place] [address] Plt 226 150 - 400 K/cumm [facility]ER [facility] Comment:Testing performed by : [facility], [address] [place] [address] MPV 6.8 6.8 - 10.4 fL [facility] Comment:Testing performed by : [facility], [address] [place] [address] RBC 5.67 4.30 - 5.80 M/cumm [facility] Comment:Testing performed by : [facility], [address] [place] [address] MCV 72.8(L) 81.3 - 96.4 fL [facility] Comment:Testing performed by : [facility], [address] [place] [address] MCH 23.1(L) 27.1 - 33.3 pg [facility] Comment:Testing performed by : [facility], [address] [place] [address] MCHC 31.7(L) 32.3 - 35.7 g/dL [facility] Comment:Testing performed by : [facility], [address] [place] [address] RDW CV 20.3(H) 11.1 - 14.9 % [facility] Comment:Testing performed by : [facility], [address] [place] [address] NRBC abs 0.00 0.00 - 0.01 K/cumm [facility] Comment:Testing performed by : [facility], [address] [place] [address] Blood 05/29/2025 10:1 4 AM INDUSTRIAL HYGIENE ENGINEER 05/29/2025 10:24 AM INDUSTRIAL HYGIENE ENGINEER us Sea Ocampo MD LAB BLOOD ORDERABLES Lena l Result Performing Organization Address City/[facility] Co de Phone Number [facility] [place] [address] * (ABNORMAL) Reticulocyte Count (05/29/2025 10:14 AM INDUSTRIAL HYGIENE ENGINEER) Pathologist [facility] Retics, absolute 109(H) 20 - 100 K/cumm Comment:Testing performed by : [facility], [address] [place] [phone] Retics 1.9(H) 0.5 - 1.8 % [facility] Comment:Testing performed by : [facility], [address] [place] [phone] Blood 05/29/2025 10:1 4 AM INDUSTRIAL HYGIENE ENGINEER 05/29/2025 10:24 AM INDUSTRIAL HYGIENE ENGINEER us Sea Ocampo MD LAB BLOOD ORDERABLES Lena l Result Performing Organization Address [facility] de Phone Number [facility] [place] [address] * Phosphorus (05/29/2025 10:14 AM INDUSTRIAL HYGIENE ENGINEER) Pathologist [facility] Phosphorus, pl 3.0 2.3 - 4.5 mg/dL Blood 05/29/2025 10:1 4 AM INDUSTRIAL HYGIENE ENGINEER 05/29/2025 10:27 AM INDUSTRIAL HYGIENE ENGINEER us Sea Ocampo MD LAB BLOOD ORDERABLES Lena l Result Performing Organization Address City/[facility] Co de Phone Number [facility] [place] [address] * Magnesium (05/29/2025 10:14 AM INDUSTRIAL HYGIENE ENGINEER) Pathologist [facility] Magnesium 1.8 1.4 - 2.5 mg/dL Blood 05/29/2025 10:1 4 AM INDUSTRIAL HYGIENE ENGINEER 05/29/2025 10:27 AM INDUSTRIAL HYGIENE ENGINEER us Sea Ocampo MD LAB BLOOD ORDERABLES Lena l Result Performing Organization Address [facility] Co de Phone Number [facility] [place] [address] * Lipase (05/29/2025 10:14 AM INDUSTRIAL HYGIENE ENGINEER) Lipase 15 10 - 99 Units/L Blood 05/29/2025 10:1 4 AM INDUSTRIAL HYGIENE ENGINEER 05/29/2025 10:27 AM INDUSTRIAL HYGIENE ENGINEER us Sea Ocampo MD LAB BLOOD ORDERABLES Lena l Result Performing Organization Address [facility] de Phone Number [facility] [place] [address] * Lactate dehydrogenase (LD) (05/29/2025 10:14 AM INDUSTRIAL HYGIENE ENGINEER) Lactate dehydrogenase (LDH) 234 100 - 250 Units/L Blood 05/29/2025 10:1 4 AM INDUSTRIAL HYGIENE ENGINEER 05/29/2025 10:27 AM INDUSTRIAL HYGIENE ENGINEER us Sea Ocampo MD LAB BLOOD ORDERABLES Lena l Result Performing Organization Address City/[facility] Co de Phone Number [facility] [place] [address] * Gamma GT (05/29/2025 10:14 AM INDUSTRIAL HYGIENE ENGINEER) GGT 28 10 - 50 Units/L Blood 05/29/2025 10:1 4 AM INDUSTRIAL HYGIENE ENGINEER 05/29/2025 10:27 AM INDUSTRIAL HYGIENE ENGINEER us Sea Ocampo MD LAB BLOOD ORDERABLES Lena l Result Performing Organization Address [facility] Co de Phone Number [facility] [place] [address] * Bilirubin, direct (05/29/2025 10:14 AM INDUSTRIAL HYGIENE ENGINEER) [facility] Bilirubin, direct <0.2 0.1 - 0.3 mg/dL Blood 05/29/2025 10:1 4 AM INDUSTRIAL HYGIENE ENGINEER 05/29/2025 10:27 AM INDUSTRIAL HYGIENE ENGINEER Sea Ocampo MD LAB BLOOD ORDERABLES Lena l Result Performing Organization Address [facility] Co de Phone Number [facility] [place] [address] * Amylase (05/29/2025 10:14 AM INDUSTRIAL HYGIENE ENGINEER) [facility] Amylase 35 30 - 99 Units/L Blood 05/29/2025 10:1 4 AM INDUSTRIAL HYGIENE ENGINEER 05/29/2025 10:27 AM INDUSTRIAL HYGIENE ENGINEER Sea Ocampo MD LAB BLOOD ORDERABLES Lena l Result Performing Organization Address [facility] Co de Phone Number [facility] [place] [address] * (ABNORMAL) Comprehensive metabolic panel (05/29/2025 10:14 AM INDUSTRIAL HYGIENE ENGINEER) [facility] Sodium 137 135 - 145 mmol/L Potassium, pl 4.4 3.3 - 4.9 mmol/L [facility] Chloride 100 97 - 110 mmol/L [facility] CO2 34(H) 22 - 32 mmol/L [facility] Anion gap 3 2 - 15 mmol/L [facility] BUN 12 6 - 25 mg/dL [facility] Creatinine 0.76(L) 0.80 - 1.30 mg/dL [facility] Glucose 120 70 - 199 mg/dL [facility] Comment: Interpretive Data Fasting glucose >/= 126 mg/dl is diagnostic for diabetes. Fasting is defined as no caloric intake for at least 8 hours. Fasting glucose between 100 mg/dl to 125 mg/dl is diagnostic of prediabetes. In a patient with classic symptoms of hyperglycemia or hyperglycemic crisis, a random glucose >/= 200 mg/dl is diagnostic for diabetes. In the absence of unequivocal hyperglycemia, results should be confirmed by repeat testing. The classification and Diagnosis of Diabetes Diabetes Care 2021; 46: S19-S40. Current interpretive data was last revised 2022. Calcium 11.6(H) 8.5 - 10.3 mg/dL [facility] Bilirubin, total 0.3 0.1 - 1.2 mg/dL [facility] Protein, pl 7.0 6.5 - 8.5 g/dL [facility] Albumin 3.0(L) 3.5 - 5.0 g/dL [facility] Alk phos 79 40 - 130 Units/L [facility] ALT 13 7 - 55 Units/L [facility] AST 20 10 - 50 Units/L [facility] Blood 05/29/2025 10:1 4 AM INDUSTRIAL HYGIENE ENGINEER 05/29/2025 10:27 AM INDUSTRIAL HYGIENE ENGINEER us Sea Ocampo MD LAB BLOOD ORDERABLES Lena grimm Result [facility] [place] [address] * RI THORACENTESIS NEEDLE/CATH PLEURA W/IMAGING (05/27/2025 4:08 PM INDUSTRIAL HYGIENE ENGINEER) Anatomical Region Laterality Modality Other Narrative 05/27/2025 4:08 PM INDUSTRIAL HYGIENE ENGINEER Russ Jimneez MD 05/27/2025 7:07 PM Thoracentesis Date/Time: 05/27/2025 4:08 PM Performed by: Jamir Mcgarry MD Authorized by: Russ Jimenez MD Willard Protocol: RN Notified of Procedure: yes Informed consent: Risks, benefits, alternatives discussed Patient's stated name/ matches armband: Yes Consent form signed, dated, timed; matches correct patient, intended procedure and site: Yes Imaging: Pertinent imaging reviewed, correctly oriented and match to patient identifiersImmediately prior to the procedure a time out was called: a verbal verification by the procedure participants confirmed correct patient identity, correct site/side marked and visible (if applicable); agreement on procedure to be done; and correct patient positioning Anesthesia (see MAR for exact dosage) Anesthesia method: Local infiltration Local anesthetic: Lidocaine 1% Preparation: Patient was prepped and draped in usual sterile fashion Patient position: Sitting Location: L midaxillary line Puncture method: [id number] catheter Ultrasound guidance: yes Ultrasound guidance used for: Pre-procedure marking Number of attempts: 1 Drainage characteristics: Bloody Patient tolerance of procedure: Tolerated well, no immediate complications us Russ Jimenez MD PFT ORDERABLES Final Result * Thoracentesis -Left side (05/21/2025 11:48 AM INDUSTRIAL HYGIENE ENGINEER) Anatomical Region Laterality Modality Other Narrative Procedure Note Amrita Arreola DNP - 05/21/2025 9:11 AM CST [facility] Interventional Pulmonary Patient Name: Peter Newman Procedure Date: 05/21/2025 9:11 AM Date of : 1965 Admit Type: Outpatient Age: 59 Room: ROOM 3 Gender: Male Note Status: Finalized Procedure: L ECHO Chest, L Sudhir Pleural catheter placement Indications: Malignant Pleural Effusion Providers: ERIC Black Referring MD: Medicines: Lidocaine 1% instilled into chest wall 30 mL Sub-Q, Fentanyl 50 mcg IV Complications: No immediate complications Procedure: Pre-Anesthesia Assessment: - The History and Physical was reviewed prior tothe procedure. The patient's medications, allergies and sensitivities have also been reviewed. - The risks and benefits of the procedure and the sedation options and risks were discussed with the patient. All questions were answered and informed consent was obtained. - Only local anesthesia, not conscious sedation,was planned for the procedure. - The heart rate, respiratory rate, oxygen saturations, blood pressure, adequacy of pulmonary ventilation, and response to care were monitored throughout the procedure. The procedure was accomplished without difficulty.The patient tolerated the procedure well. Estimated Blood Loss: Estimated blood loss: none. Findings: > Ultrasound, chest, real time with imaging documentation: Patient was placed in an sitting position on the procedure table, patient was unable to lie in the left side up position due to LUEpain. Ultrasound evaluation of the left hemithorax was performed andrevealed a moderate anechoic effusion. There were multiple areas of lung consolidation seen within the hemithorax. > Insertion of indwelling tunneled pleural catheter with cuff: The patient was placed in a left side up position on the proceduretable. The patient was then prepped and draped in the usual sterile mannerand the chest wall at the posterior axillary line in the 5 th intercostal space as well as a tract 5 cm anterior-caudal to this wasanesthetized. The 18 gauge needle was then passed between the ribs and advancedinto the pleural space following ultrasound localization. Two ml of serous fluid was aspirated. A J-tipped guide wire was then passed throughthe needle and into the plerual space. A # 11 scalpel was then used tomake a 0.5 cm incision in the skin adjacent to the guide wire and an additional 0.5 cm incision 5 cm anterior-caudal to the guide-wire. The Pleurx catheter was then loaded onto the tunneler and passedthrough the subcutaneous tissues from the anterior-caudal incision to the incision adjacent to the J-tipped guide-wire. The tunneler was then removed from the catheter and the catheter was positioned in thetunnel. The 16 Fr peel away introducer and dilator were then passed over the guide-wire and into the pleural space. The J-tipped guidewire and dilator were then removed. The Pleurx catheter was then passedthrough the peel-away introducer and into the pleural space and theintroducer was removed. The catheter was accessed and 1000 ml of serous fluidwas drained. The catheter was then secured in place with 1 suture of 3-0 silk and the incision was closed with 2 sutures of 2-0 silk. Thesterile cap was locked in place and the catheter was covered and dressed. The patient and family was provided with instruction which included watching a video and demonstrating a drainage. Patient sent home with3 drainage kits. Lot number was recorded into the electronic medical record. Impression: - Dr. Siegel collaborated on this case. - Successful Pleurx Insertion Recommendation: - Chest X-ray post-procedure. - Drain every other day up to 1L - No tub bathing, no swimming - Follow up with IP in 2 weeks, office will contact patient directly Electronically signed by KIMMIE Gómez ERIC Galeas 05/21/2025 11:48:20 AM Number of Addenda: 0 Note Initiated On: 05/21/2025 9:59 AM us Russ Siegel MD IN CLINIC/BEDSIDE ORDERABL ES Edited Result - Final * XR Chest 1 Vw (05/21/2025 9:57 AM INDUSTRIAL HYGIENE ENGINEER) Anatomical Region Laterality Modality Body, Chest N/A Computed Radiogr aphy 05/21/2025 11:0 8 AM INDUSTRIAL HYGIENE ENGINEER Impressions 05/21/2025 12:32 PM INDUSTRIAL HYGIENE ENGINEER There is a right internal jugular central venous catheter with tip projecting over the right atrium. There has been interval placement of a left thoracostomy tube/catheter with interval development of a hydropneumothorax. The right lung is clear. The cardiomediastinal silhouette is likely unchanged. The Critical results were discussed with Amrita Arreola DNP by Dr. Nicole Posey M.D. on 05/21/2025 11:07 AM. Dictated by: Nicole Posey M.D. The radiology attending physician has personally reviewed this study, and had reviewed and/or edited this written report and agrees with it. Electronically signed by: Ray Becker M.D. Narrative 05/21/2025 12:32 PM INDUSTRIAL HYGIENE ENGINEER EXAMINATION: 1 view chest radiograph The current study is compared with the prior radiograph dated 05/14/[address] from 05/15/2025. Procedure Note Ray Becker MD - 05/21/2025 EXAMINATION: 1 view chest radiograph The current study is compared with the prior radiograph dated 05/14/[address] from 05/15/2025. IMPRESSION: There is a right internal jugular central venous catheter with tip projecting over the right atrium. There has been interval placement of a left thoracostomy tube/catheter with interval development of a hydropneumothorax. The right lung is clear. The cardiomediastinal silhouette is likely unchanged. The Critical results were discussed with Amrita Arreola DNP by Dr. Nicole Posey M.D. on 05/21/2025 11:07 AM. Dictated by: Nicole Posey M.D. The radiology attending physician has personally reviewed this study, and had reviewed and/or edited this written report and agrees with it. Electronically signed by: Ray Becker M.D. Amrita Arreola DNP IMG XR PROCEDURES Final Result * CT Humerus Left W Contrast (05/19/2025 2:53 PM INDUSTRIAL HYGIENE ENGINEER) Anatomical Region Laterality Modality Upper Extremities Left Computed Tomog denilson 05/19/2025 4:49 PM INDUSTRIAL HYGIENE ENGINEER Impressions 05/19/2025 4:50 PM INDUSTRIAL HYGIENE ENGINEER 1. Postsurgical changes of tumor resection and internal fixation in the left proximal humerus. Possible ill-defined soft tissue surrounding the proximal humerus is difficult to evaluate given extensive streak artifact. 2. Probable interval increase in size and extension to the posterior skin surface of a left deltoid mass. 3. Unchanged left axillary lymphadenopathy. Dictated by: Lukas Siegel M.D. The radiology attending physician has personally reviewed this study, and had reviewed and/or edited this written report and agrees with it. Electronically signed by: Lester Landis M.D. Narrative 05/19/2025 4:50 PM INDUSTRIAL HYGIENE ENGINEER EXAMINATION: CT HUMERUS LEFT W CONTRAST HISTORY: Metastatic squamous cell carcinoma of the lung, left humeral lesion follow-up. TECHNIQUE: Transaxial computed tomographic images of the left humerus were obtained without intravenous contrast according to the standard protocol. COMPARISON: 03/31/2025 CT FINDINGS: Patient is status post curettage, segmentation, and internal fixation of the left humerus with multiple plate and screw constructs. Instrumentation is grossly intact and in expected position. There is cortical loss and cortical irregularity at the posterior medial margin of the proximal humerus, similar to prior exam. Areas of possible ill-defined soft tissue anterior and medial to the humerus are difficult to evaluate given extensive streak artifact. Additional ill-defined mass within the left deltoid muscle appears increased in size from prior, now measuring approximately 7.1 x 5.4 cm compared to 5.9 x 5.4 cm previously. The mass also appears to have increased extension to the posterior skin surface. Precise comparison is limited by streak artifact and possible differences in positioning. There is diffuse subcutaneous edema and skin thickening in the distal left upper extremity, similar to prior exam. There are multiple enlarged left axillary lymph nodes, some of which are centrally necrotic, the largest measuring up to 3.1 cm. These are nonspecific and not substantially changed from prior examination. For additional soft tissue findings in the chest and abdomen please see same-day dedicated CT. Procedure Note Lester Landis MD PhD - 05/19/2025 EXAMINATION: CT HUMERUS LEFT W CONTRAST HISTORY: Metastatic squamous cell carcinoma of the lung, left humeral lesion follow-up. TECHNIQUE: Transaxial computed tomographic images of the left humerus were obtained without intravenous contrast according to the standard protocol. COMPARISON: 03/31/2025 CT FINDINGS: Patient is status post curettage, segmentation, and internal fixation of the left humerus with multiple plate and screw constructs. Instrumentation is grossly intact and in expected position. There is cortical loss and cortical irregularity at the posterior medial margin of the proximal humerus, similar to prior exam. Areas of possible ill-defined soft tissue anterior and medial to the humerus are difficult to evaluate given extensive streak artifact. Additional ill-defined mass within the left deltoid muscle appears increased in size from prior, now measuring approximately 7.1 x 5.4 cm compared to 5.9 x 5.4 cm previously. The mass also appears to have increased extension to the posterior skin surface. Precise comparison is limited by streak artifact and possible differences in positioning. There is diffuse subcutaneous edema and skin thickening in the distal left upper extremity, similar to prior exam. There are multiple enlarged left axillary lymph nodes, some of which are centrally necrotic, the largest measuring up to 3.1 cm. These are nonspecific and not substantially changed from prior examination. For additional soft tissue findings in the chest and abdomen please see same-day dedicated CT. IMPRESSION: 1. Postsurgical changes of tumor resection and internal fixation in the left proximal humerus. Possible ill-defined soft tissue surrounding the proximal humerus is difficult to evaluate given extensive streak artifact. 2. Probable interval increase in size and extension to the posterior skin surface of a left deltoid mass. 3. Unchanged left axillary lymphadenopathy. Dictated by: Lukas Siegel M.D. The radiology attending physician has personally reviewed this study, and had reviewed and/or edited this written report and agrees with it. Electronically signed by: Lester Landis M.D. Sea Ocampo MD IMG CT PROCEDURES Final R esult * eGFR (05/16/2025 5:10 AM INDUSTRIAL HYGIENE ENGINEER) eGFR >90 >=60 mL/min/1. 73 m2 Comment: Interpretive Data Reference Interval Normal >/= 90 mL/min/1.73m2 Mildly decreased* 60 - 89 mL/min/1.73m2 Mildly to moderately decreased 45 - 59 mL/min/1.73m2 Moderately to severely decreased 30 - 44 mL/min/1.73m2 Severely decreased 15 - 29 mL/min/1.73m2 Kidney Failure < 15 mL/min/1.73m2 *Relative to young adult level Estimated glomerular filtration rate is determined by the 2020 CKD-EPI equation recommended by the [employer] (A Unifying Approach to GFR Estimation: Recommendations of the NKF-ASK Task Force on Reassessing the Inclusion of Race in Diagnosing Kidney Disease, JASN 2020). The CKD-EPI equation should not be used for patients with unstable renal function and has not been validated in children and those over 70. Current interpretive data was last reviewed 2021. Blood 05/16/2025 5:10 AM INDUSTRIAL HYGIENE ENGINEER 05/16/2025 5:24 AM INDUSTRIAL HYGIENE ENGINEER Fernando Bailey MD LAB BLOOD ORDERABLES Final Resu lt [facility] [place] [address] * (ABNORMAL) Differential, auto (05/16/2025 5:10 AM INDUSTRIAL HYGIENE ENGINEER) Neutrophil abs 6.97(H) 1.50 - 6.50 K/cumm Imm gran abs 0.04 0.00 - 0.10 K/cumm [facility] Lymphocyte abs 1.78 0.80 - 3.30 K/cumm [facility] Monocyte abs 0.77 0.20 - 0.80 K/cumm [facility] Eosinophil abs 0.74(H) 0.00 - 0.50 K/cumm [facility] Basophil abs 0.05 0.00 - 0.10 K/cumm [facility] Neutrophil pct 67.4 % [facility] Comment: Interpretive Data Percent cell count reference ranges are not reported, since discordance with absolute values may lead to misinterpretation of CBC data. Current Interpretive Data was last revised on 2017. Imm gran pct 0.4 % [facility] Comment: Interpretive Data Percent cell count reference ranges are not reported, since discordance with absolute values may lead to misinterpretation of CBC data. Current Interpretive Data was last revised on 2017. Lymphocyte pct 17.2 % [facility] Comment: Interpretive Data Percent cell count reference ranges are not reported, since discordance with absolute values may lead to misinterpretation of CBC data. Current Interpretive Data was last revised on 2017. Monocyte pct 7.4 % [facility] Comment: Interpretive Data Percent cell count reference ranges are not reported, since discordance with absolute values may lead to misinterpretation of CBC data. Current Interpretive Data was last revised on 2017. Eosinophil pct 7.1 % [facility] Comment: Interpretive Data Percent cell count reference ranges are not reported, since discordance with absolute values may lead to misinterpretation of CBC data. Current Interpretive Data was last revised on 2017. Basophil pct 0.5 % [facility] Comment: Interpretive Data Percent cell count reference ranges are not reported, since discordance with absolute values may lead to misinterpretation of CBC data. Current Interpretive Data was last revised on 2017. Blood 05/16/2025 5:10 AM INDUSTRIAL HYGIENE ENGINEER 05/16/2025 5:24 AM INDUSTRIAL HYGIENE ENGINEER Fernando Bailey MD LAB BLOOD ORDERABLES Final Resu lt Performing Organization Address [facility] Co de Phone Number [facility] [place] [address] * (ABNORMAL) Calcium, ionized (05/16/2025 5:10 AM INDUSTRIAL HYGIENE ENGINEER) Calcium, Ionized 6.68(H) 4.50 - 5.10 mg/dL Blood 05/16/2025 5:10 AM INDUSTRIAL HYGIENE ENGINEER 05/16/2025 5:20 AM INDUSTRIAL HYGIENE ENGINEER Fernando Bailey MD LAB BLOOD ORDERABLES Final Resu lt Performing Organization Address City/[facility] Co de Phone Number [facility] [place] [address] * (ABNORMAL) CBC with auto differential (05/16/2025 5:10 AM INDUSTRIAL HYGIENE ENGINEER) WBC 10.35(H) 3.80 - 9.90 K/cumm Hgb 13.0 13.0 - 17.5 g/dL [facility] Hct 43.5 38.9 - 50.3 % [facility] Plt 223 150 - 400 K/cumm [facility] MPV 8.6(L) 9.1 - 12.3 fL [facility] RBC 5.81(H) 4.30 - 5.80 M/cumm [facility] MCV 74.9(L) 81.3 - 96.4 fL [facility] MCH 22.4(L) 27.1 - 33.3 pg [facility] MCHC 29.9(L) 32.3 - 35.7 g/dL [facility] RDW CV 18.9(H) 11.1 - 14.9 % [facility] RDW SD 47.2 35.7 - 48.1 fL [facility] NRBC abs 0.00 0.00 - 0.01 K/cumm [facility] Blood 05/16/2025 5:10 AM INDUSTRIAL HYGIENE ENGINEER 05/16/2025 5:24 AM INDUSTRIAL HYGIENE ENGINEER Fernando Bailey MD LAB BLOOD ORDERABLES Final Resu lt Performing Organization Address City/[facility] Co de Phone Number [facility] [place] [address] * Phosphorus (05/16/2025 5:10 AM INDUSTRIAL HYGIENE ENGINEER) Phosphorus, pl 2.6 2.3 - 4.5 mg/dL Blood 05/16/2025 5:10 AM INDUSTRIAL HYGIENE ENGINEER 05/16/2025 5:24 AM INDUSTRIAL HYGIENE ENGINEER Fernando Bailey MD LAB BLOOD ORDERABLES Final Resu lt [facility] [place] [address] * Magnesium (05/16/2025 5:10 AM INDUSTRIAL HYGIENE ENGINEER) Magnesium 1.8 1.4 - 2.5 mg/dL Blood 05/16/2025 5:10 AM INDUSTRIAL HYGIENE ENGINEER 05/16/2025 5:24 AM INDUSTRIAL HYGIENE ENGINEER Fernando Bailey MD LAB BLOOD ORDERABLES Final Resu lt Performing Organization Address City/[facility]/ZIP Co de Phone Number [facility] [place] [address] * (ABNORMAL) Basic metabolic panel (05/16/2025 5:10 AM INDUSTRIAL HYGIENE ENGINEER) [facility] Sodium 138 135 - 145 mmol/L Potassium, pl 4.4 3.3 - 4.9 mmol/L [facility] Comment:Hemolyzed; Potassium value may be falsely elevated by as much as 0.3-0.5 mmol/L. Suggest redraw and reanalysis. Chloride 102 97 - 110 mmol/L [facility] CO2 31 22 - 32 mmol/L [facility] Anion gap 5 2 - 15 mmol/L [facility] BUN 7 6 - 25 mg/dL [facility] Creatinine 0.60(L) 0.80 - 1.30 mg/dL [facility] Glucose 92 70 - 199 mg/dL [facility] Comment: Interpretive Data Fasting glucose >/= 126 mg/dl is diagnostic for diabetes. Fasting is defined as no caloric intake for at least 8 hours. Fasting glucose between 100 mg/dl to 125 mg/dl is diagnostic of prediabetes. In a patient with classic symptoms of hyperglycemia or hyperglycemic crisis, a random glucose >/= 200 mg/dl is diagnostic for diabetes. In the absence of unequivocal hyperglycemia, results should be confirmed by repeat testing. The classification and Diagnosis of Diabetes Diabetes Care 2021; 46: S19-S40. Current interpretive data was last revised 2022. Calcium 12.4(H) 8.5 - 10.3 mg/dL [facility] Blood 05/16/2025 5:10 AM INDUSTRIAL HYGIENE ENGINEER 05/16/2025 5:24 AM INDUSTRIAL HYGIENE ENGINEER Fernando Bailey MD LAB BLOOD ORDERABLES Final Resu lt Performing Organization Address [facility]/ZIP Co de Phone Number [facility] [place] [address] * (ABNORMAL) aPTT (05/15/2025 1:58 PM INDUSTRIAL HYGIENE ENGINEER) aPTT 48(H) 26 - 38 sec Comment: Interpretive Data Heparin therapeutic range: 66.0 - 100.0 seconds. Range based on correlation with therapeutic heparin activity range of 0.3 - 0.7 Units/mL. Blood 05/15/2025 1:58 PM INDUSTRIAL HYGIENE ENGINEER 05/15/2025 2:06 PM INDUSTRIAL HYGIENE ENGINEER Narrative BENJAMIN BENNETT - 05/15/2025 2:35 PM INDUSTRIAL HYGIENE ENGINEER STAT PTT timing: - Draw 6 hours after heparin infusion initiation - Draw 6 hours after every dose change until 2 consecutive PTTs are therapeutic - Once 2 consecutive PTTs are therapeutic, obtain with daily labs until infusion is discontinued - - Restart every 6 hour lab draws and follow instructions accordingly if PTT is outside of therapeutic range Do not draw lab from IV line that is actively infusing heparin. Use the opposite arm. If arm with actively infusing heparin must be used, pause the infusion for at least 2 minutes, and draw specimen below the IV site. For patients with a central venous catheter (CVC), lab must be drawn peripherally (not from CVC). us Fernando Michaels MD LAB BLOOD ORDERABLES Final Resul t [facility] CARR[facility] [place] [address] * CT Chest WO Contrast (05/15/2025 1:18 PM INDUSTRIAL HYGIENE ENGINEER) Anatomical Region Laterality Modality Body N/A Computed Tomogra phy 05/15/2025 2:17 PM INDUSTRIAL HYGIENE ENGINEER Impressions 05/15/2025 6:21 PM INDUSTRIAL HYGIENE ENGINEER 1. Trace volume of gas anterior to the mediastinum on the left. This could relate to trace loculated left-sided pleural air following thoracentesis, [...] right lower lobe with tiny tree-in-bud nodularity. Electronically signed by: Margarita Honeycutt M.D. Narrative 05/15/2025 6:21 PM INDUSTRIAL HYGIENE ENGINEER EXAMINATION: Computed tomography of the chest without intravenous contrast HISTORY: Metastatic small cell lung cancer with disease progression despite 2 lines of therapy. Currently on clinical trial started 04/07/2025 complicated by recent hospitalization with atrial flutter, left pleural effusion and postobstructive pneumonia. Follow-up lung collapse. Pleural fluid was positive for malignancy on 04/29/2025 TECHNIQUE: Transaxial computed tomographic images of the chest were obtained without intravenous contrast according to the standard protocol. COMPARISON: CTs with most recent dated 05/12/2025 FINDINGS: Chest: Imaged thyroid parenchyma is unremarkable allowing for slight limitations from streak artifact. Thoracic esophagus is nondilated. Mild centrilobular emphysematous changes in the right upper lobe. Minimal subsegmental atelectasis in the right lower lobe. Subtle tree-in-bud nodularity in the dependent aspect of the right lower lobe likely relate to an inflammatory/infectious process, such as aspiration. Moderate to large volume left-sided pleural effusion. No significant right-sided effusion or pneumothorax. Left-sided pleural nodularity is seen and better appreciated on prior enhanced CT. For reference: Left upper lung zone pleural nodule measures 2.6 cm (series 2, image 56). Trace volume of gas is seen along the anterior aspect of the mediastinum, which could relate to a trace amount of pneumomediastinum or loculated left-sided pleural air (series 6, image 86). Mild bronchial and bronchiolar wall thickening. Scattered endoluminal debris is seen in the right lower lobe airways and bilateral main bronchi. Complete collapse of the left upper and left lower lobes without air bronchograms. The collapsed left lower lobe demonstrates low attenuation, which may relate to an element of superimposed postobstructive pneumonia. Volume loss in the left hemithorax is again seen with leftward shifting of the mediastinum. Right internal jugular approach tunneled chest wall port with the tip terminating at the cavoatrial junction. Standard left sided three-vessel thoracic aortic arch branching pattern. Atherosclerotic calcifications in the thoracic aorta, which is normal in caliber. Aortic root calcifications. The main pulmonary artery measures at the upper limits of normal at 2.9 cm in diameter. Extensive coronary artery calcifications/stents, although the current study is not optimized for coronary artery assessment. Heart is normal in size allowing for the unenhanced and non-gated technique. Similar enlarged mediastinal and left axillary lymph nodes. For reference: Right paratracheal lymph node measures 3.0 cm in short axis and demonstrates some central low-attenuation suggesting necrosis (series 2, image 64), which is stable. AP window lymph node measures 1.9 cm in short axis, unchanged (series 2, image 70). Enlarged left axillary lymph nodes measure up to 3.1 cm in short axis, previously 2.9 cm (series 2, image 61). Imaged upper abdomen: Status post cholecystectomy. The spleen is enlarged measuring 15.0 cm in the craniocaudal dimension. There is a hypodense lesion in the spleen measuring 3.9 cm, unchanged from the immediate prior (series 2, image 180). Anterior omental nodule or mesenteric lymph node measures 9 mm in maximum diameter, which is stable compared to the immediate prior (series 9, image 108). Gastroepiploic lymph node along the greater curvature of the stomach measures 11 mm in short axis, unchanged from the immediate prior (series 2, image 105). Nodule posterior to the left adrenal gland measures 1.5 cm, unchanged from the immediate prior (series 2, image 165). Exophytic focus projecting from the superior pole of the left kidney measures 2.8 cm. This has an indeterminate density on the current examination and previously demonstrated a simple density appearing cyst suggesting interval hemorrhage into this cyst (series 2, image 153). Multilevel degenerative changes in the imaged spine. Erosive osseous lesion of the right anterior first rib (series 2, image 28). Subacute to remote left-sided rib fracture deformities are again seen. Lipomatous lesion posterior to the glenoid measures 4.1 x 3.8 cm, unchanged since 10/16/2023. ORIF of the left humerus resulting in streak artifact.. Procedure Note Yinka, Margarita Haro MD - 05/15/2025 EXAMINATION: Computed tomography of the chest without intravenous contrast HISTORY: Metastatic small cell lung cancer with disease progression despite 2 lines of therapy. Currently on clinical trial started 04/07/2025 complicated by recent hospitalization with atrial flutter, left pleural effusion and postobstructive pneumonia. Follow-up lung collapse. Pleural fluid was positive for malignancy on 04/29/2025 TECHNIQUE: Transaxial computed tomographic images of the chest were obtained without intravenous contrast according to the standard protocol. COMPARISON: CTs with most recent dated 05/12/2025 FINDINGS: Chest: Imaged thyroid parenchyma is unremarkable allowing for slight limitations from streak artifact. Thoracic esophagus is nondilated. Mild centrilobular emphysematous changes in the right upper lobe. Minimal subsegmental atelectasis in the right lower lobe. Subtle tree-in-bud nodularity in the dependent aspect of the right lower lobe likely relate to an inflammatory/infectious process, such as aspiration. Moderate to large volume left-sided pleural effusion. No significant right-sided effusion or pneumothorax. Left-sided pleural nodularity is seen and better appreciated on prior enhanced CT. For reference: Left upper lung zone pleural nodule measures 2.6 cm (series 2, image 56). Trace volume of gas is seen along the anterior aspect of the mediastinum, which could relate to a trace amount of pneumomediastinum or loculated left-sided pleural air (series 6, image 86). Mild bronchial and bronchiolar wall thickening. Scattered endoluminal debris is seen in the right lower lobe airways and bilateral main bronchi. Complete collapse of the left upper and left lower lobes without air bronchograms. The collapsed left lower lobe demonstrates low attenuation, which may relate to an element of superimposed postobstructive pneumonia. Volume loss in the left hemithorax is again seen with leftward shifting of the mediastinum. Right internal jugular approach tunneled chest wall port with the tip terminating at the cavoatrial junction. Standard left sided three-vessel thoracic aortic arch branching pattern. Atherosclerotic calcifications in the thoracic aorta, which is normal in caliber. Aortic root calcifications. The main pulmonary artery measures at the upper limits of normal at 2.9 cm in diameter. Extensive coronary artery calcifications/stents, although the current study is not optimized for coronary artery assessment. Heart is normal in size allowing for the unenhanced and non-gated technique. Similar enlarged mediastinal and left axillary lymph nodes. For reference: Right paratracheal lymph node measures 3.0 cm in short axis and demonstrates some central low-attenuation suggesting necrosis (series 2, image 64), which is stable. AP window lymph node measures 1.9 cm in short axis, unchanged (series 2, image 70). Enlarged left axillary lymph nodes measure up to 3.1 cm in short axis, previously 2.9 cm (series 2, image 61). Imaged upper abdomen: Status post cholecystectomy. The spleen is enlarged measuring 15.0 cm in the craniocaudal dimension. There is a hypodense lesion in the spleen measuring 3.9 cm, unchanged from the immediate prior (series 2, image 180). Anterior omental nodule or mesenteric lymph node measures 9 mm in maximum diameter, which is stable compared to the immediate prior (series 9, image 108). Gastroepiploic lymph node along the greater curvature of the stomach measures 11 mm in short axis, unchanged from the immediate prior (series 2, image 105). Nodule posterior to the left adrenal gland measures 1.5 cm, unchanged from the immediate prior (series 2, image 165). Exophytic focus projecting from the superior pole of the left kidney measures 2.8 cm. This has an indeterminate density on the current examination and previously demonstrated a simple density appearing cyst suggesting interval hemorrhage into this cyst (series 2, image 153). Multilevel degenerative changes in the imaged spine. Erosive osseous lesion of the right anterior first rib (series 2, image 28). Subacute to remote left-sided rib fracture deformities are again seen. Lipomatous lesion posterior to the glenoid measures 4.1 x 3.8 cm, unchanged since 10/16/2023. ORIF of the left humerus resulting in streak artifact.. IMPRESSION: 1. Trace volume of gas anterior to the mediastinum on the left. This could relate to trace loculated left-sided pleural air following thoracentesis, [...] right lower lobe with tiny tree-in-bud nodularity. Electronically signed by: Margarita Honeycutt M.D. Fernando Bailey MD IMG CT PROCEDURES Final Result * eGFR (05/15/2025 5:44 AM INDUSTRIAL HYGIENE ENGINEER) Pathologist [facility] eGFR >90 >=60 mL/min/1. 73 m2 Comment: Interpretive Data Reference Interval Normal >/= 90 mL/min/1.73m2 Mildly decreased* 60 - 89 mL/min/1.73m2 Mildly to moderately decreased 45 - 59 mL/min/1.73m2 Moderately to severely decreased 30 - 44 mL/min/1.73m2 Severely decreased 15 - 29 mL/min/1.73m2 Kidney Failure < 15 mL/min/1.73m2 *Relative to young adult level Estimated glomerular filtration rate is determined by the 2020 CKD-EPI equation recommended by the National [employer] (A Unifying Approach to GFR Estimation: Recommendations of the NKF-ASK Task Force on Reassessing the Inclusion of Race in Diagnosing Kidney Disease, JASN 2020). The CKD-EPI equation should not be used for patients with unstable renal function and has not been validated in children and those over 70. Current interpretive data was last reviewed 2021. Blood 05/15/2025 5:44 AM INDUSTRIAL HYGIENE ENGINEER 05/15/2025 5:54 AM INDUSTRIAL HYGIENE ENGINEER Fernando Bailey MD LAB BLOOD ORDERABLES Final Resu lt [facility] [place] [address] * Differential, auto (05/15/2025 5:44 AM INDUSTRIAL HYGIENE ENGINEER) Pathologist [facility] Neutrophil abs 6.34 1.50 - 6.50 K/cumm Imm gran abs 0.04 0.00 - 0.10 K/cumm [facility] Lymphocyte abs 1.33 0.80 - 3.30 K/cumm [facility] Monocyte abs 0.65 0.20 - 0.80 K/cumm [facility] Eosinophil abs 0.46 0.00 - 0.50 K/cumm [facility] Basophil abs 0.04 0.00 - 0.10 K/cumm [facility] Neutrophil pct 71.5 % [facility] Comment: Interpretive Data Percent cell count reference ranges are not reported, since discordance with absolute values may lead to misinterpretation of CBC data. Current Interpretive Data was last revised on 2017. Imm gran pct 0.5 % [facility] Comment: Interpretive Data Percent cell count reference ranges are not reported, since discordance with absolute values may lead to misinterpretation of CBC data. Current Interpretive Data was last revised on 2017. Lymphocyte pct 15.0 % [facility] Comment: Interpretive Data Percent cell count reference ranges are not reported, since discordance with absolute values may lead to misinterpretation of CBC data. Current Interpretive Data was last revised on 2017. Monocyte pct 7.3 % [facility] Comment: Interpretive Data Percent cell count reference ranges are not reported, since discordance with absolute values may lead to misinterpretation of CBC data. Current Interpretive Data was last revised on 2017. Eosinophil pct 5.2 % [facility] Comment: Interpretive Data Percent cell count reference ranges are not reported, since discordance with absolute values may lead to misinterpretation of CBC data. Current Interpretive Data was last revised on 2017. Basophil pct 0.5 % [facility] Comment: Interpretive Data Percent cell count reference ranges are not reported, since discordance with absolute values may lead to misinterpretation of CBC data. Current Interpretive Data was last revised on 2017. Blood 05/15/2025 5:44 AM INDUSTRIAL HYGIENE ENGINEER 05/15/2025 5:54 AM INDUSTRIAL HYGIENE ENGINEER Fernando Bailey MD LAB BLOOD ORDERABLES Final Resu lt [facility] [place] [address] * (ABNORMAL) Calcium, ionized (05/15/2025 5:44 AM INDUSTRIAL HYGIENE ENGINEER) Calcium, Ionized 6.19(H) 4.50 - 5.10 mg/dL Blood 05/15/2025 5:44 AM INDUSTRIAL HYGIENE ENGINEER 05/15/2025 5:54 AM INDUSTRIAL HYGIENE ENGINEER Fernando Bailey MD LAB BLOOD ORDERABLES Final Resu lt Performing Organization Address [facility] Co de Phone Number [facility] [place] [address] * (ABNORMAL) CBC with auto differential (05/15/2025 5:44 AM INDUSTRIAL HYGIENE ENGINEER) [facility] WBC 8.86 3.80 - 9.90 K/cumm Hgb 12.9(L) 13.0 - 17.5 g/dL [facility] Hct 43.3 38.9 - 50.3 % [facility] Plt 229 150 - 400 K/cumm [facility] MPV 9.0(L) 9.1 - 12.3 fL [facility] RBC 5.79 4.30 - 5.80 M/cumm [facility] MCV 74.8(L) 81.3 - 96.4 fL [facility] MCH 22.3(L) 27.1 - 33.3 pg [facility] MCHC 29.8(L) 32.3 - 35.7 g/dL [facility] RDW CV 18.6(H) 11.1 - 14.9 % [facility] RDW SD 47.1 35.7 - 48.1 fL [facility] NRBC abs 0.00 0.00 - 0.01 K/cumm [facility] Blood 05/15/2025 5:44 AM INDUSTRIAL HYGIENE ENGINEER 05/15/2025 5:54 AM INDUSTRIAL HYGIENE ENGINEER Fernando Bailey MD LAB BLOOD ORDERABLES Final Resu lt Performing Organization Address [facility]/ZIP Co de Phone Number [facility] [place] [place] [address] * aPTT (05/15/2025 5:44 AM INDUSTRIAL HYGIENE ENGINEER) [facility] aPTT 38 26 - 38 sec Comment: Interpretive Data Heparin therapeutic range: 66.0 - 100.0 seconds. Range based on correlation with therapeutic heparin activity range of 0.3 - 0.7 Units/mL. Blood 05/15/2025 5:44 AM INDUSTRIAL HYGIENE ENGINEER 05/15/2025 5:59 AM INDUSTRIAL HYGIENE ENGINEER Narrative [facility] - 05/15/2025 6:08 AM INDUSTRIAL HYGIENE ENGINEER STAT PTT timing: - Draw 6 hours after heparin infusion initiation - Draw 6 hours after every dose change until 2 consecutive PTTs are therapeutic - Once 2 consecutive PTTs are therapeutic, obtain with daily labs until infusion is discontinued - - Restart every 6 hour lab draws and follow instructions accordingly if PTT is outside of therapeutic range Do not draw lab from IV line that is actively infusing heparin. Use the opposite arm. If arm with actively infusing heparin must be used, pause the infusion for at least 2 minutes, and draw specimen below the IV site. For patients with a central venous catheter (CVC), lab must be drawn peripherally (not from CVC). Fernando Michaels MD LAB BLOOD ORDERABLES Final Resul t Performing Organization Address [facility] Co de Phone Number [facility] [place] [address] * Phosphorus (05/15/2025 5:44 AM INDUSTRIAL HYGIENE ENGINEER) Phosphorus, pl 2.4 2.3 - 4.5 mg/dL Blood 05/15/2025 5:44 AM INDUSTRIAL HYGIENE ENGINEER 05/15/2025 5:54 AM INDUSTRIAL HYGIENE ENGINEER Fernando Bailey MD LAB BLOOD ORDERABLES Final Resu lt Performing Organization Address [facility] Co de Phone Number [facility] [place] [address] * Magnesium (05/15/2025 5:44 AM INDUSTRIAL HYGIENE ENGINEER) Magnesium 1.8 1.4 - 2.5 mg/dL Blood 05/15/2025 5:44 AM INDUSTRIAL HYGIENE ENGINEER 05/15/2025 5:54 AM INDUSTRIAL HYGIENE ENGINEER Fernando Bailey MD LAB BLOOD ORDERABLES Final Resu lt Performing Organization Address City/[facility]/ZIP Co de Phone Number [facility] [place] [address] * (ABNORMAL) Basic metabolic panel (05/15/2025 5:44 AM INDUSTRIAL HYGIENE ENGINEER) Sodium 137 135 - 145 mmol/L Potassium, pl 4.0 3.3 - 4.9 mmol/L [facility] Comment:Hemolyzed; Potassium value may be falsely elevated by as much as 0.3-0.5 mmol/L. Suggest redraw and reanalysis. Chloride 101 97 - 110 mmol/L [facility] CO2 33(H) 22 - 32 mmol/L [facility] Anion gap 3 2 - 15 mmol/L [facility] BUN 8 6 - 25 mg/dL [facility] Creatinine 0.64(L) 0.80 - 1.30 mg/dL [facility] Glucose 105 70 - 199 mg/dL [facility] Comment: Interpretive Data Fasting glucose >/= 126 mg/dl is diagnostic for diabetes. Fasting is defined as no caloric intake for at least 8 hours. Fasting glucose between 100 mg/dl to 125 mg/dl is diagnostic of prediabetes. In a patient with classic symptoms of hyperglycemia or hyperglycemic crisis, a random glucose >/= 200 mg/dl is diagnostic for diabetes. In the absence of unequivocal hyperglycemia, results should be confirmed by repeat testing. The classification and Diagnosis of Diabetes Diabetes Care 2021; 46: S19-S40. Current interpretive data was last revised 2022. Calcium 11.3(H) 8.5 - 10.3 mg/dL [facility] Blood 05/15/2025 5:44 AM INDUSTRIAL HYGIENE ENGINEER 05/15/2025 5:54 AM INDUSTRIAL HYGIENE ENGINEER Fernando Bailey MD LAB BLOOD ORDERABLES Final Resu lt Performing Organization Address City/[facility]/ZIP Co de Phone Number [facility] [place] [address] * Infection Prevention Last auris PCR, surveillance Axilla/Groin (05/15/2025 3:40 AM INDUSTRIAL HYGIENE ENGINEER) Last auris DNA Not Detected Not Detected [facility] Comment: Interpretive Data Testing performed by [facility] using the Sadie nanette 6800 Last auris assay. This assay detects DNA from Last auris using Real-Time PCR. This assay is laboratory developed and is not cleared by the [place] Food and Drug Administration. The performance characteristics have been verified by the [facility]. Axilla/Groin 05/15/2025 3:40 AM INDUSTRIAL HYGIENE ENGINEER 05/15/2025 5:32 AM INDUSTRIAL HYGIENE ENGINEER Narrative [facility] - 05/15/2025 1:36 PM INDUSTRIAL HYGIENE ENGINEER Order placed by [facility] due to ring surveillance. Instant Order Generic Provider LAB MICROBIOLOGY - GENERAL ORDERABLES Final Result Performing Organization Address City/[facility] Co de Phone Number [facility] [place] [address] [facility] * aPTT (05/14/2025 10:33 PM INDUSTRIAL HYGIENE ENGINEER) aPTT 33 26 - 38 sec Comment: Interpretive Data Heparin therapeutic range: 66.0 - 100.0 seconds. Range based on correlation with therapeutic heparin activity range of 0.3 - 0.7 Units/mL. Blood 05/14/2025 10:3 3 PM INDUSTRIAL HYGIENE ENGINEER 05/14/2025 10:57 PM INDUSTRIAL HYGIENE ENGINEER Fernando Michaels MD LAB BLOOD ORDERABLES Final Resul t Performing Organization Address City/[facility]/ZIP Co de Phone Number [facility] [place] [address] * Thoracentesis -Left side (05/14/2025 3:10 PM INDUSTRIAL HYGIENE ENGINEER) Anatomical Region Laterality Modality Other Narrative Procedure Note Amrita Arreola, TITO - 05/14/2025 12:40 PM CST [facility] Interventional Pulmonary Patient Name: Peter Newman Procedure Date: 05/14/2025 12:40PM Date of : 1965 Admit Type: Inpatient Age: 59 Room: ROOM 3 Gender: Male Note Status: Finalized Procedure: L Ultrasound chest Indications: Pleural effusion Providers: Amrita Arreola ANP Referring MD: Medicines: None Complications: No immediate complications Procedure: Pre-Anesthesia Assessment: - The History and Physical was reviewed prior tothe procedure. The patient's medications, allergies and sensitivities have also been reviewed. - The risks and benefits of the procedure and the sedation options and risks were discussed with the patient. All questions were answered and informed consent was obtained. - Prior to the procedure, no anesthesia or sedation was planned. - The heart rate, respiratory rate, oxygen saturations, blood pressure, adequacy of pulmonary ventilation, and response to care were monitored throughout the procedure. - s/p L thora on 05/12, 1L removed with ER team. Estimated Blood Loss: Estimated blood loss: none. Findings: > Ultrasound, chest, real time with imaging documentation: Patient was placed in an left side up position on the proceduretable. Ultrasound evaluation of the left hemithorax was performed andrevealed a small anechoic effusion. Impression: - No specimens collected. - Dr. Siegel collaborated on this case. - Dr. Shepherd (IP Fellow) participated in thiscase. Recommendation: f/u as an outpt PRN for thora Electronically signed by MARYJANE GómezC ERIC Galeas 05/14/2025 3:09:37 PM Number of Addenda: 0 Note Initiated On: 05/14/2025 12:40 PM us Fernando Bailey MD IN CLINIC/BEDSIDE ORDERABLES Ed ited Result - Final * XR Chest 1 Vw (05/14/2025 1:28 PM INDUSTRIAL HYGIENE ENGINEER) Anatomical Region Laterality Modality Body, Chest N/A Computed Radiogr aphy 05/14/2025 2:13 PM INDUSTRIAL HYGIENE ENGINEER Impressions 05/14/2025 2:13 PM INDUSTRIAL HYGIENE ENGINEER Comparison is made to prior from 05/12/2025. Right internal jugular port catheter overlies the superior vena cava. The left lung remains completely collapsed. The heart and mediastinum are shifted to the left. The right lung is clear. There is no pneumothorax. Electronically signed by: Tye Guerrero M.D. Narrative 05/14/2025 2:13 PM INDUSTRIAL HYGIENE ENGINEER EXAMINATION: 1 view chest radiograph Procedure Note Tye Guerrero MD - 05/14/2025 EXAMINATION: 1 view chest radiograph IMPRESSION: Comparison is made to prior from 05/12/2025. Right internal jugular port catheter overlies the superior vena cava. The left lung remains completely collapsed. The heart and mediastinum are shifted to the left. The right lung is clear. There is no pneumothorax. Electronically signed by: Tye Guerrero M.D. us Amrita Arreola DNP IMG XR PROCEDURES Final Result * eGFR (05/14/2025 5:37 AM INDUSTRIAL HYGIENE ENGINEER) eGFR >90 >=60 mL/min/1. 73 m2 Comment: Interpretive Data Reference Interval Normal >/= 90 mL/min/1.73m2 Mildly decreased* 60 - 89 mL/min/1.73m2 Mildly to moderately decreased 45 - 59 mL/min/1.73m2 Moderately to severely decreased 30 - 44 mL/min/1.73m2 Severely decreased 15 - 29 mL/min/1.73m2 Kidney Failure < 15 mL/min/1.73m2 *Relative to young adult level Estimated glomerular filtration rate is determined by the 2020 CKD-EPI equation recommended by the National Kidney Foundation (A Unifying Approach to GFR Estimation: Recommendations of the NKF-ASK Task Force on Reassessing the Inclusion of Race in Diagnosing Kidney Disease, JASN 2020). The CKD-EPI equation should not be used for patients with unstable renal function and has not been validated in children and those over 70. Current interpretive data was last reviewed 2021. Blood 05/14/2025 5:37 AM INDUSTRIAL HYGIENE ENGINEER 05/14/2025 5:44 AM INDUSTRIAL HYGIENE ENGINEER us Fernando Bailey MD LAB BLOOD ORDERABLES Final Resu lt [facility] [place] [address] * Differential, auto (05/14/2025 5:37 AM INDUSTRIAL HYGIENE ENGINEER) Neutrophil abs 5.50 1.50 - 6.50 K/cumm Imm gran abs 0.02 0.00 - 0.10 K/cumm [facility] Lymphocyte abs 1.87 0.80 - 3.30 K/cumm [facility] Monocyte abs 0.70 0.20 - 0.80 K/cumm [facility] Eosinophil abs 0.41 0.00 - 0.50 K/cumm [facility] Basophil abs 0.05 0.00 - 0.10 K/cumm [facility] Neutrophil pct 64.3 % [facility] Comment: Interpretive Data Percent cell count reference ranges are not reported, since discordance with absolute values may lead to misinterpretation of CBC data. Current Interpretive Data was last revised on 2017. Imm gran pct 0.2 % [facility] Comment: Interpretive Data Percent cell count reference ranges are not reported, since discordance with absolute values may lead to misinterpretation of CBC data. Current Interpretive Data was last revised on 2017. Lymphocyte pct 21.9 % [facility] Comment: Interpretive Data Percent cell count reference ranges are not reported, since discordance with absolute values may lead to misinterpretation of CBC data. Current Interpretive Data was last revised on 2017. Monocyte pct 8.2 % [facility] Comment: Interpretive Data Percent cell count reference ranges are not reported, since discordance with absolute values may lead to misinterpretation of CBC data. Current Interpretive Data was last revised on 2017. Eosinophil pct 4.8 % [facility] Comment: Interpretive Data Percent cell count reference ranges are not reported, since discordance with absolute values may lead to misinterpretation of CBC data. Current Interpretive Data was last revised on 2017. Basophil pct 0.6 % [facility] Comment: Interpretive Data Percent cell count reference ranges are not reported, since discordance with absolute values may lead to misinterpretation of CBC data. Current Interpretive Data was last revised on 2017. Blood 05/14/2025 5:37 AM INDUSTRIAL HYGIENE ENGINEER 05/14/2025 5:44 AM INDUSTRIAL HYGIENE ENGINEER us Fernando Bailey MD LAB BLOOD ORDERABLES Final Resu lt [facility] [place] [address] * (ABNORMAL) Calcium, ionized (05/14/2025 5:37 AM INDUSTRIAL HYGIENE ENGINEER) Calcium, Ionized 6.38(H) 4.50 - 5.10 mg/dL Blood 05/14/2025 5:37 AM INDUSTRIAL HYGIENE ENGINEER 05/14/2025 5:44 AM INDUSTRIAL HYGIENE ENGINEER Fernando Bailey MD LAB BLOOD ORDERABLES Final Resu lt [facility] [place] [address] * (ABNORMAL) CBC with auto differential (05/14/2025 5:37 AM INDUSTRIAL HYGIENE ENGINEER) [facility] WBC 8.55 3.80 - 9.90 K/cumm Hgb 13.8 13.0 - 17.5 g/dL [facility] Hct 44.6 38.9 - 50.3 % [facility] Plt 223 150 - 400 K/cumm [facility] MPV 8.7(L) 9.1 - 12.3 fL [facility] RBC 5.94(H) 4.30 - 5.80 M/cumm [facility] MCV 75.1(L) 81.3 - 96.4 fL [facility] MCH 23.2(L) 27.1 - 33.3 pg [facility] MCHC 30.9(L) 32.3 - 35.7 g/dL [facility] RDW CV 18.6(H) 11.1 - 14.9 % [facility] RDW SD 47.7 35.7 - 48.1 fL [facility] NRBC abs 0.00 0.00 - 0.01 K/cumm [facility] Blood 05/14/2025 5:37 AM INDUSTRIAL HYGIENE ENGINEER 05/14/2025 5:44 AM INDUSTRIAL HYGIENE ENGINEER Fernando Bailey MD LAB BLOOD ORDERABLES Final Resu lt [facility] [place] [address] * Protime-INR (05/14/2025 5:37 AM INDUSTRIAL HYGIENE ENGINEER) [facility] PT 13.1 10.2 - 13.5 sec INR 1.16 0.90 - 1.20 [facility] Comment: Interpretive data Oral anticoagulant therapeutic ranges: Venous thromboembolism prophylaxis or treatment: 2.0-3.0 CARDIOLOGY Standard range: 2.0-3.0 High-intensity range: 2.5-3.5 Refer to indication-specific guidelines for appropriate target ranges for prosthetic heart valve replacement. Current interpretive data was last revised on 2019. Blood 05/14/2025 5:37 AM INDUSTRIAL HYGIENE ENGINEER 05/14/2025 5:54 AM INDUSTRIAL HYGIENE ENGINEER Fernando Bailey MD LAB BLOOD ORDERABLES Final Resu lt Performing Organization Address City/[facility] Co de Phone Number [facility] [place] [employer] [place] [address] * Phosphorus (05/14/2025 5:37 AM INDUSTRIAL HYGIENE ENGINEER) Pathologist [facility] Phosphorus, pl 3.2 2.3 - 4.5 mg/dL Blood 05/14/2025 5:37 AM INDUSTRIAL HYGIENE ENGINEER 05/14/2025 5:44 AM INDUSTRIAL HYGIENE ENGINEER Fernando Bailey MD LAB BLOOD ORDERABLES Final Resu lt Performing Organization Address [facility] de Phone Number [facility] [place] [place] [address] * Magnesium (05/14/2025 5:37 AM INDUSTRIAL HYGIENE ENGINEER) Pathologist [facility] Magnesium 2.1 1.4 - 2.5 mg/dL Blood 05/14/2025 5:37 AM INDUSTRIAL HYGIENE ENGINEER 05/14/2025 5:44 AM INDUSTRIAL HYGIENE ENGINEER Fernando Bailey MD LAB BLOOD ORDERABLES Final Resu lt Performing Organization Address [facility] Co de Phone Number [facility] [place] [place] [address] * (ABNORMAL) Basic metabolic panel (05/14/2025 5:37 AM INDUSTRIAL HYGIENE ENGINEER) Pathologist [facility] Sodium 139 135 - 145 mmol/L Potassium, pl 4.2 3.3 - 4.9 mmol/L [facility] Chloride 101 97 - 110 mmol/L [facility] CO2 32 22 - 32 mmol/L [facility] Anion gap 6 2 - 15 mmol/L [facility] BUN 8 6 - 25 mg/dL [facility] Creatinine 0.68(L) 0.80 - 1.30 mg/dL [facility] Glucose 98 70 - 199 mg/dL [facility] Comment: Interpretive Data Fasting glucose >/= 126 mg/dl is diagnostic for diabetes. Fasting is defined as no caloric intake for at least 8 hours. Fasting glucose between 100 mg/dl to 125 mg/dl is diagnostic of prediabetes. In a patient with classic symptoms of hyperglycemia or hyperglycemic crisis, a random glucose >/= 200 mg/dl is diagnostic for diabetes. In the absence of unequivocal hyperglycemia, results should be confirmed by repeat testing. The classification and Diagnosis of Diabetes Diabetes Care 202; 46: S19-S40. Current interpretive data was last revised 2022. Calcium 11.4(H) 8.5 - 10.3 mg/dL [facility] Blood 05/14/2025 5:37 AM INDUSTRIAL HYGIENE ENGINEER 05/14/2025 5:44 AM INDUSTRIAL HYGIENE ENGINEER Fernando Bailey MD LAB BLOOD ORDERABLES Final Resu lt [facility] [place] [address] * aPTT (05/13/2025 5:13 PM INDUSTRIAL HYGIENE ENGINEER) [facility] Signature aPTT 34 26 - 38 sec Comment: Interpretive Data Heparin therapeutic range: 66.0 - 100.0 seconds. Range based on correlation with therapeutic heparin activity range of 0.3 - 0.7 Units/mL. Blood 05/13/2025 5:13 PM INDUSTRIAL HYGIENE ENGINEER 05/13/2025 6:56 PM INDUSTRIAL HYGIENE ENGINEER Narrative [facility] - 05/13/2025 7:06 PM INDUSTRIAL HYGIENE ENGINEER STAT PTT timing: - Draw 6 hours after heparin infusion initiation - Draw 6 hours after every dose change until 2 consecutive PTTs are therapeutic - Once 2 consecutive PTTs are therapeutic, obtain with daily labs until infusion is discontinued - - Restart every 6 hour lab draws and follow instructions accordingly if PTT is outside of therapeutic range Do not draw lab from IV line that is actively infusing heparin. Use the opposite arm. If arm with actively infusing heparin must be used, pause the infusion for at least 2 minutes, and draw specimen below the IV site. For patients with a central venous catheter (CVC), lab must be drawn peripherally (not from CVC). Fernando Michaels MD LAB BLOOD ORDERABLES Final Resul t [facility] [place] [address] * Respiratory pathogen panel Nasopharyngeal (05/13/2025 5:12 PM INDUSTRIAL HYGIENE ENGINEER) [facility] Influenza A RNA Not Detected Not Detected Influenza B RNA Not Detected Not Detected [facility] RSV RNA Not Detected Not Detected [facility] COVID-19 RNA Not Detected Not Detected [facility] Coronavirus 229E RNA Not Detected Not Detected [facility] Coronavirus HKU1 RNA Not Detected Not Detected [facility] Coronavirus NL63 RNA Not Detected Not Detected [facility] Coronavirus OC43 RNA Not Detected Not Detected [facility] Adenovirus DNA Not Detected Not Detected [facility] Metapneumovirus RNA Not Detected Not Detected [facility] Rhinovirus/Enterov irus RNA Not Detected Not Detected [facility] Parainfluenza 1 RNA Not Detected Not Detected [facility] Parainfluenza 2 RNA Not Detected Not Detected [facility] Parainfluenza 3 RNA Not Detected Not Detected [facility] Parainfluenza 4 RNA Not Detected Not Detected [facility] B. pertussis DNA Not Detected Not Detected [facility] B. parapertussis DNA Not Detected Not Detected [facility] C. pneumoniae DNA Not Detected Not Detected [facility] M. pneumoniae DNA Not Detected Not Detected [facility] Nasopharyngeal 05/13/2025 5: 12 PM INDUSTRIAL HYGIENE ENGINEER 05/13/2025 6:59 PM INDUSTRIAL HYGIENE ENGINEER Narrative [facility] - 05/13/2025 8:07 PM INDUSTRIAL HYGIENE ENGINEER Is the Patient experiencing symptoms consistent with COVID?->No Surveillance testing for transplant patient?->No Interpretive Data The [employer] FilmArray Respiratory Panel (RP2.1) assay is a multiplexed real-time PCR based nucleic acid test capable of simultaneous qualitative detection and identification of multiple respiratory viral and bacterial nucleic acids, including SARS Coronavirus 2 (the causative agent of COVID-19). The following bacteria, viruses and virus subtypes can be identified using the FilmArray RP2.1 assay: Bordetella pertussis, Bordetella parapertussis, Chlamydia pneumoniae, Mycoplasma pneumoniae, Adenovirus, SARS Coronavirus 2, seasonal coronaviruses (Coronavirus HKU1, Coronavirus NL63, Coronavirus 229E, and Coronavirus OC43), Influenza A, Influenza A subtype H1, Influenza A subtype H3, Influenza A subtype 2009 H1, Influenza B, Metapneumovirus, Parainfluenza 1, Parainfluenza 2, Parainfluenza 3, Parainfluenza 4, RSV, Rhinovirus/Enterovirus. Due to the genetic similarity between human Rhinovirus and Enterovirus, the FilmArray RP2.1 assay cannot reliably differentiate them. Coronavirus OC43 may cross-react with some isolates of Coronavirus HKU1. A dual positive result may be due to cross-reactivity or may indicate a co- infection. The detection and identification of specific viral and bacterial nucleic acids from individuals exhibiting signs and symptoms of a respiratory infection aids in the diagnosis of respiratory infection if used in conjunction with other clinical and epidemiological information. The results of this test should not be used as the sole basis for diagnosis, treatment, or other management decisions. Negative results in the setting of a respiratory illness may be due to infection with pathogens that are not detected by this test. Positive results do not rule out infection/co-infection with other organisms. The agent(s) detected by the FilmArray RP2.1 may not be the definite cause of disease. Additional testing (lab, imaging, etc.) may be necessary when evaluating a patient with possible respiratory tract infection. The FilmArray RP2.1 assay has FDA clearance for testing of BREAKER OILER swabs. The performance of additional specimen types has been assessed by the performing laboratory. The performance characteristics of this assay have been determined by [facility] Molecular Infectious Disease Laboratory. Current interpretive data was last revised on 22. Fernando Bailey MD LAB MICROBIOLOGY - GENERAL ORDBerlni CALZADA Final Result [facility] [place] [address] * MRSA Only (Staphylococcus aureus) PCR Nasal (05/13/2025 5:12 PM INDUSTRIAL HYGIENE ENGINEER) PCR Scrn, Methicillin resistant Staphylococcus aureus (MRSA) Not Detected Not Detected [facility] Comment: Testing performed using Nucleic Acid Amplification with the [employer] Xpert MRSA NxG Assay. This assay detects target DNA from mecA, mecC and the SCCmec insertion site of Staphylococcus aureus using Real-Time PCR and has been cleared by the FDA. Performance characteristics have been verified by the [facility]. Nasal 05/13/2025 5:12 PM INDUSTRIAL HYGIENE ENGINEER 05/13/2025 6:58 PM INDUSTRIAL HYGIENE ENGINEER Fernando Bailey MD LAB MICROBIOLOGY - GENERAL ORDE ZHENG Final Result Performing Organization Address City/[facility]/ZIP Co de Phone Number [facility] [place] [address] [facility] * Infection Prevention Last auris PCR, surveillance Axilla/Groin (05/13/2025 10:57 AM INDUSTRIAL HYGIENE ENGINEER) Pathologist [facility] Last auris DNA Not Detected Not Detected [facility] Comment: Interpretive Data Testing performed by [facility]ious [facility] using the Sadie nanette 6800 Last auris assay. This assay detects DNA from Last auris using Real-Time PCR. This assay is laboratory developed and is not cleared by the [place] Food and Drug Administration. The performance characteristics have been verified by the [facility]ious Disease [facility]. Axilla/Groin 05/13/2025 10:5 7 AM INDUSTRIAL HYGIENE ENGINEER 05/13/2025 11:29 AM INDUSTRIAL HYGIENE ENGINEER Adien Leija MD LAB MICROBIOLOGY - GENERAL ORDER JESSICA Final Result [facility] [place] [address] [facility] * (ABNORMAL) aPTT (05/13/2025 10:57 AM INDUSTRIAL HYGIENE ENGINEER) aPTT 41(H) 26 - 38 sec Comment: Interpretive Data Heparin therapeutic range: 66.0 - 100.0 seconds. Range based on correlation with therapeutic heparin activity range of 0.3 - 0.7 Units/mL. Blood 05/13/2025 10:5 7 AM INDUSTRIAL HYGIENE ENGINEER 05/13/2025 11:35 AM INDUSTRIAL HYGIENE ENGINEER Narrative [facility] - 05/13/2025 11:46 AM INDUSTRIAL HYGIENE ENGINEER STAT PTT timing: - Draw 6 hours after heparin infusion initiation - Draw 6 hours after every dose change until 2 consecutive PTTs are therapeutic - Once 2 consecutive PTTs are therapeutic, obtain with daily labs until infusion is discontinued - - Restart every 6 hour lab draws and follow instructions accordingly if PTT is outside of therapeutic range Do not draw lab from IV line that is actively infusing heparin. Use the opposite arm. If arm with actively infusing heparin must be used, pause the infusion for at least 2 minutes, and draw specimen below the IV site. For patients with a central venous catheter (CVC), lab must be drawn peripherally (not from CVC). Fernando Michaels MD LAB BLOOD ORDERABLES Final Resul t Performing Organization Address City/[facility]/ZIP Co de Phone Number [facility] [place] [place] [address] * (ABNORMAL) Calcium, ionized (05/13/2025 4:10 AM INDUSTRIAL HYGIENE ENGINEER) Pathologist [facility] Calcium, Ionized 5.79(H) 4.50 - 5.10 mg/dL Blood 05/13/2025 4:10 AM INDUSTRIAL HYGIENE ENGINEER 05/13/2025 4:26 AM INDUSTRIAL HYGIENE ENGINEER Fernando Michaels MD LAB BLOOD ORDERABLES Final Resul t Performing Organization Address City/[facility] Co de Phone Number [facility] [place] [address] * aPTT (05/13/2025 4:10 AM INDUSTRIAL HYGIENE ENGINEER) aPTT 38 26 - 38 sec Comment: Interpretive Data Heparin therapeutic range: 66.0 - 100.0 seconds. Range based on correlation with therapeutic heparin activity range of 0.3 - 0.7 Units/mL. Blood 05/13/2025 4:10 AM INDUSTRIAL HYGIENE ENGINEER 05/13/2025 4:31 AM INDUSTRIAL HYGIENE ENGINEER Fernando Michaels MD LAB BLOOD ORDERABLES Final Resul t Performing Organization Address [facility] de Phone Number [facility] [place] [place] [address] * aPTT (05/12/2025 9:44 PM INDUSTRIAL HYGIENE ENGINEER) aPTT 33 26 - 38 sec Comment: Interpretive Data Heparin therapeutic range: 66.0 - 100.0 seconds. Range based on correlation with therapeutic heparin activity range of 0.3 - 0.7 Units/mL. Blood 05/12/2025 9:44 PM INDUSTRIAL HYGIENE ENGINEER 05/12/2025 10:15 PM INDUSTRIAL HYGIENE ENGINEER Narrative [facility] - 05/12/2025 10:25 PM INDUSTRIAL HYGIENE ENGINEER Baseline prior to heparin initiation Fernando Michaels MD LAB BLOOD ORDERABLES Final Resul t Performing Organization Address [facility] de Phone Number [facility] [place] [place] [address] * (ABNORMAL) Protime-INR (05/12/2025 9:44 PM INDUSTRIAL HYGIENE ENGINEER) PT 14.8(H) 10.2 - 13.5 sec INR 1.32(H) 0.90 - 1.20 [facility] Comment: Interpretive data Oral anticoagulant therapeutic ranges: Venous thromboembolism prophylaxis or treatment: 2.0-3.0 CARDIOLOGY Standard range: 2.0-3.0 High-intensity range: 2.5-3.5 Refer to indication-specific guidelines for appropriate target ranges for prosthetic heart valve replacement. Current interpretive data was last revised on 2019. Blood 05/12/2025 9:44 PM INDUSTRIAL HYGIENE ENGINEER 05/12/2025 10:15 PM INDUSTRIAL HYGIENE ENGINEER Narrative [facility] - 05/12/2025 10:25 PM INDUSTRIAL HYGIENE ENGINEER Baseline prior to heparin initiation Fernando Michaels MD LAB BLOOD ORDERABLES Final Resul t [facility] [place] [address] * (ABNORMAL) CBC without differential (05/12/2025 9:44 PM INDUSTRIAL HYGIENE ENGINEER) WBC 9.83 3.80 - 9.90 K/cumm Hgb 12.8(L) 13.0 - 17.5 g/dL [facility] Hct 43.9 38.9 - 50.3 % [facility] Plt 226 150 - 400 K/cumm [facility] MPV 8.5(L) 9.1 - 12.3 fL [facility] RBC 5.74 4.30 - 5.80 M/cumm [facility] MCV 76.5(L) 81.3 - 96.4 fL [facility] MCH 22.3(L) 27.1 - 33.3 pg [facility] MCHC 29.2(L) 32.3 - 35.7 g/dL [facility] RDW CV 18.7(H) 11.1 - 14.9 % [facility] RDW SD 47.8 35.7 - 48.1 fL [facility] NRBC abs 0.00 0.00 - 0.01 K/cumm [facility] Blood 05/12/2025 9:44 PM INDUSTRIAL HYGIENE ENGINEER 05/12/2025 10:29 PM INDUSTRIAL HYGIENE ENGINEER Narrative [facility] - 05/12/2025 10:35 PM INDUSTRIAL HYGIENE ENGINEER Baseline prior to heparin initiation Fernando Michaels MD LAB BLOOD ORDERABLES Final Resul t [facility] [place] [address] * (ABNORMAL) Hemoglobin A1c (05/12/2025 9:44 PM INDUSTRIAL HYGIENE ENGINEER) [facility] Hgb A1C 6.0(H) 4.0 - 5.6 % Estimated Average Glucose 126 mg/dL [facility] Comment: The ADA recommends reporting an estimated Average Glucose (eAG) with all Hemoglobin A1c results using the equation derived from a study of 507 normal and diabetic adults. Minority populations were underrepresented and children were not included. (Diabetes Care 2020; 43(S1): S66-S76). The eAG is not equivalent to a fasting glucose. Blood 05/12/2025 9:44 PM INDUSTRIAL HYGIENE ENGINEER 05/12/2025 10:33 PM INDUSTRIAL HYGIENE ENGINEER us Fernando Michaels MD LAB BLOOD ORDERABLES Final Resul t Performing Organization Address City/[facility] Co de Phone Number [facility] [place] [address] * Troponin I high-sensitivity 6-hour (05/12/2025 4:50 PM INDUSTRIAL HYGIENE ENGINEER) [facility] Trop I hs 10 <=35 ng/L Comment: Interpretive Data For further hscTnI resources including the diagnostic algorithm and an aid in interpretation, copy and paste this link: [email or web address].testcatalog.org/show/[email or web address] Current Interpretive Data last revised 2020. Trop I hs delta 1 ng/L [facility] Trop I hs interp Insignificant [facility] Blood 05/12/2025 4:50 PM INDUSTRIAL HYGIENE ENGINEER 05/12/2025 5:06 PM INDUSTRIAL HYGIENE ENGINEER us Russ Jimenez MD LAB BLOOD ORDERABLES Final Re sult [facility] [place] [place] [address] * Troponin I high-sensitivity 4-hour (05/12/2025 2:48 PM INDUSTRIAL HYGIENE ENGINEER) [facility] Trop I hs 9 <=35 ng/L Comment: Interpretive Data For further hscTnI resources including the diagnostic algorithm and an aid in interpretation, copy and paste this link: https://bjhlab.testcatalog.org/show/[email or web address] Current Interpretive Data last revised 2020. Trop I hs delta 0 ng/L [facility] Trop I hs interp Insignificant [facility] Blood 05/12/2025 2:48 PM INDUSTRIAL HYGIENE ENGINEER 05/12/2025 3:17 PM INDUSTRIAL HYGIENE ENGINEER Russ Jimenez MD LAB BLOOD ORDERABLES Final Re sult Performing Organization Address City/[facility]/ZIP Co de Phone Number [facility] [place] [address] * Sepsis Lactate w/ Reflex (05/12/2025 2:48 PM INDUSTRIAL HYGIENE ENGINEER) Sepsis Lactate 2.0 0.7 - 2.0 mmol/L Blood 05/12/2025 2:48 PM INDUSTRIAL HYGIENE ENGINEER 05/12/2025 3:12 PM INDUSTRIAL HYGIENE ENGINEER Russ Jimenez MD LAB BLOOD ORDERABLES Final Re sult Performing Organization Address [facility] Co de Phone Number [facility] [place] [address] * POCUS Thoracic (Lung Ultrasound) (05/12/2025 1:56 PM INDUSTRIAL HYGIENE ENGINEER) Anatomical Region Laterality Modality Other 05/12/2025 11:3 5 AM INDUSTRIAL HYGIENE ENGINEER Narrative 05/12/2025 9:54 PM INDUSTRIAL HYGIENE ENGINEER Performed by: Tomás Herndon Cardiac: Exam type: Diagnostic Exam Information: Indication(s) for Exam: Tachycardia or arrhythmia Exam Occurence: Initial Findings : Pericardial effusion: Small RV early diastolic collapse?: Absent Left ventricle: Hyperdynamic IVC: Normal Electronically signed by Tomás Herndon on May at 11:36 PM I have reviewed the images & the resident's interpretation. I agree with the findings. Images on file. Thoracic : Exam Information: Exam type: Diagnostic Indication(s) for Exam: Dyspnea Findings: Right thorax: Lung sliding present, A-lines Left thorax: Pleural effusion Interpretation: Right lung: No sonographic evidence of acute pulmonary disease Left lung: Pleural effusion Electronically signed by Majo Cesar on Monday, May 12, 2025 at 9:54 PM I have reviewed the images & the resident's interpretation. I agree with the findings. Images on file. Procedure Note Majo Cesar MD - 05/29/2025 Performed by: Tomás Herndon Cardiac: Exam type: Diagnostic Exam Information: Indication(s) for Exam: Tachycardia or arrhythmia Exam Occurence: Initial Findings : Pericardial effusion: Small RV early diastolic collapse?: Absent Left ventricle: Hyperdynamic IVC: Normal Electronically signed by Tomás Herndon on May at11:36 PM I have reviewed the images & the resident's interpretation. I agree withthe findings. Images on file. Thoracic : Exam Information: Exam type: Diagnostic Indication(s) for Exam: Dyspnea Findings: Right thorax: Lung sliding present, A-lines Left thorax: Pleural effusion Interpretation: Right lung: No sonographic evidence of acute pulmonary disease Left lung: Pleural effusion Electronically signed by Majo Cesar on Monday, May 12, 2025 at9:54 PM I have reviewed the images & the resident's interpretation. I agree withthe findings. Images on file. us Majo Cesar MD POCUS ORDERABLES Edited Res ult - Final * XR Shoulder Left 2+ views (05/12/2025 12:52 PM INDUSTRIAL HYGIENE ENGINEER) Anatomical Region Laterality Modality Upper Extremities, Shoulder Left Comp uted Radiography 05/12/2025 1:00 PM INDUSTRIAL HYGIENE ENGINEER Impressions 05/12/2025 1:00 PM INDUSTRIAL HYGIENE ENGINEER Stable findings of large lytic lesion within the humerus and possible deltoid metastasis. Electronically signed by: Mateusz Tirado M.D. Narrative 05/12/2025 1:00 PM INDUSTRIAL HYGIENE ENGINEER Examination: 3 views left shoulder, 2 views left humerus and 2 views left forearm HISTORY: Fall FINDINGS: 3 views the left shoulder show changes of fixation of the left humerus without evidence of subluxation or dislocation. There is some mild soft tissue swelling seen which could represent a metastasis. Is unchanged compared to the prior study. Again seen is left lung collapse. 2 views left humerus show fixation with a large lytic lesion within the humerus. 2 views of the left forearm show diffuse osteopenia and diffuse soft tissue edema. There is no fracture of the left forearm. Procedure Note Mateusz Tirado MD - 05/12/2025 Examination: 3 views left shoulder, 2 views left humerus and 2 views left forearm HISTORY: Fall FINDINGS: 3 views the left shoulder show changes of fixation of the left humerus without evidence of subluxation or dislocation. There is some mild soft tissue swelling seen which could represent a metastasis. Is unchanged compared to the prior study. Again seen is left lung collapse. 2 views left humerus show fixation with a large lytic lesion within the humerus. 2 views of the left forearm show diffuse osteopenia and diffuse soft tissue edema. There is no fracture of the left forearm. IMPRESSION: Stable findings of large lytic lesion within the humerus and possible deltoid metastasis. Electronically signed by: Mateusz Tirado M.D. Jamir Mcgarry MD IMG XR PROCEDURES Final Result * XR Humerus Left (05/12/2025 12:51 PM INDUSTRIAL HYGIENE ENGINEER) Anatomical Region Laterality Modality Upper Extremities, Upper Arm Left Com puted Radiography 05/12/2025 1:00 PM INDUSTRIAL HYGIENE ENGINEER Impressions 05/12/2025 1:00 PM INDUSTRIAL HYGIENE ENGINEER Stable findings of large lytic lesion within the humerus and possible deltoid metastasis. Electronically signed by: Mateusz Tirado M.D. Narrative 05/12/2025 1:00 PM INDUSTRIAL HYGIENE ENGINEER Examination: 3 views left shoulder, 2 views left humerus and 2 views left forearm HISTORY: Fall FINDINGS: 3 views the left shoulder show changes of fixation of the left humerus without evidence of subluxation or dislocation. There is some mild soft tissue swelling seen which could represent a metastasis. Is unchanged compared to the prior study. Again seen is left lung collapse. 2 views left humerus show fixation with a large lytic lesion within the humerus. 2 views of the left forearm show diffuse osteopenia and diffuse soft tissue edema. There is no fracture of the left forearm. Procedure Note Mateusz Tirado MD - 05/12/2025 Examination: 3 views left shoulder, 2 views left humerus and 2 views left forearm HISTORY: Fall FINDINGS: 3 views the left shoulder show changes of fixation of the left humerus without evidence of subluxation or dislocation. There is some mild soft tissue swelling seen which could represent a metastasis. Is unchanged compared to the prior study. Again seen is left lung collapse. 2 views left humerus show fixation with a large lytic lesion within the humerus. 2 views of the left forearm show diffuse osteopenia and diffuse soft tissue edema. There is no fracture of the left forearm. IMPRESSION: Stable findings of large lytic lesion within the humerus and possible deltoid metastasis. Electronically signed by: Mateusz Tirado M.D. Jamir Mcgarry MD IMG XR PROCEDURES Final Result * XR Forearm Left 2 views (05/12/2025 12:49 PM INDUSTRIAL HYGIENE ENGINEER) Anatomical Region Laterality Modality Upper Extremities, Forearm Left Compu nikita Radiography 05/12/2025 1:00 PM INDUSTRIAL HYGIENE ENGINEER Impressions 05/12/2025 1:00 PM INDUSTRIAL HYGIENE ENGINEER Stable findings of large lytic lesion within the humerus and possible deltoid metastasis. Electronically signed by: Mateusz Tirado M.D. Narrative 05/12/2025 1:00 PM INDUSTRIAL HYGIENE ENGINEER Examination: 3 views left shoulder, 2 views left humerus and 2 views left forearm HISTORY: Fall FINDINGS: 3 views the left shoulder show changes of fixation of the left humerus without evidence of subluxation or dislocation. There is some mild soft tissue swelling seen which could represent a metastasis. Is unchanged compared to the prior study. Again seen is left lung collapse. 2 views left humerus show fixation with a large lytic lesion within the humerus. 2 views of the left forearm show diffuse osteopenia and diffuse soft tissue edema. There is no fracture of the left forearm. Procedure Note Matesuz Tirado MD - 05/12/2025 Examination: 3 views left shoulder, 2 views left humerus and 2 views left forearm HISTORY: Fall FINDINGS: 3 views the left shoulder show changes of fixation of the left humerus without evidence of subluxation or dislocation. There is some mild soft tissue swelling seen which could represent a metastasis. Is unchanged compared to the prior study. Again seen is left lung collapse. 2 views left humerus show fixation with a large lytic lesion within the humerus. 2 views of the left forearm show diffuse osteopenia and diffuse soft tissue edema. There is no fracture of the left forearm. IMPRESSION: Stable findings of large lytic lesion within the humerus and possible deltoid metastasis. Electronically signed by: Mateusz Tirado M.D. us Jamir Mcgarry MD IMG XR PROCEDURES Final Result * CT Head and Cervical Spine WO Contrast (05/12/2025 12:09 PM INDUSTRIAL HYGIENE ENGINEER) Anatomical Region Laterality Modality Head and Neck N/A Computed Tomogra phy 05/12/2025 12:4 4 PM INDUSTRIAL HYGIENE ENGINEER Impressions 05/12/2025 4:08 PM INDUSTRIAL HYGIENE ENGINEER 1. No acute intracranial hemorrhage. Small left parietal scalp contusion without subjacent fracture or hematoma. 2. Stable left frontal lobe metastasis accounting for differences in modality. 3. No evidence of acute fracture in the cervical spine. 4. Multilevel degenerative changes of the cervical spine which is most progressed at C5-C6 resulting in up to moderate to severe spinal canal stenosis at this level. 5. Left upper lung opacification, better evaluated on prior chest CT. Partially imaged rib lytic lesions, and left third rib and possibly left first rib fractures better assessed on same day chest CT. Irregularity of the right second rib better assessed on same day CT of the chest Dictated by: Asael Castellano MD The radiology attending physician has personally reviewed this study, and had reviewed and/or edited this written report and agrees with it. Electronically signed by: Aman Nunez MD, PHD Narrative 05/12/2025 4:08 PM INDUSTRIAL HYGIENE ENGINEER EXAMINATION: 1. CT head without contrast 2. CT of the cervical spine without contrast HISTORY: Metastatic squamous cell carcinoma, head trauma and dizziness. TECHNIQUE: CT of the head was performed with images acquired from skull base to vertex without intravenous contrast. CT of the cervical spine was performed according to the standard protocol without intravenous contrast. COMPARISON: MRI 04/02/2025 FINDINGS: HEAD: Small left parietal scalp contusion without subjacent hematoma or fracture. Unchanged hyperdense lesion in the left frontal lobe measuring up to 1.9 cm, similar to prior MRI 04/02/2025 when accounting for differences in modality. Unchanged right middle cranial fossa cyst. There is no acute intracranial hemorrhage. Ventricles are of normal size and morphology. No mass effect or midline shift is present. The saldivar-white matter differentiation is normal. The visualized portions of the orbits are normal. The visualized portions of the mastoids are normal. The visualized portions of the paranasal sinuses are normal. Left nasal bone fracture stable compared to PET CT 10/02/2024. CERVICAL SPINE: Straightening of the cervical spine, the patient is imaged in a cervical collar. 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 There is multilevel degenerative disc disease of the cervical spine is most progressed at C5-C6 which results in moderate to severe spinal canal stenosis at this level. Multilevel uncovertebral joint and facet hypertrophy with up to moderate neural foraminal stenosis at C5-C6 bilaterally. There is no acute fracture. Similar height loss of C7 when compared to PET CT 10/02/2024. The craniocervical junction is normal. The sphenoid sinus is well aerated. Carotid calcifications. Partially imaged central venous catheter on the right. Left upper lung opacification, better evaluated on prior chest CT. Partially imaged rib lytic lesions, and left third rib and possibly left first rib fractures better assessed on same day chest CT. Irregularity of the right second rib better assessed on same day CT of the chest Procedure Note Aman Nunez MD PhD - 05/12/2025 EXAMINATION: 1. CT head without contrast 2. CT of the cervical spine without contrast HISTORY: Metastatic squamous cell carcinoma, head trauma and dizziness. TECHNIQUE: CT of the head was performed with images acquired from skull base to vertex without intravenous contrast. CT of the cervical spine was performed according to the standard protocol without intravenous contrast. COMPARISON: MRI 04/02/2025 FINDINGS: HEAD: Small left parietal scalp contusion without subjacent hematoma or fracture. Unchanged hyperdense lesion in the left frontal lobe measuring up to 1.9 cm, similar to prior MRI 04/02/2025 when accounting for differences in modality. Unchanged right middle cranial fossa cyst. There is no acute intracranial hemorrhage. Ventricles are of normal size and morphology. No mass effect or midline shift is present. The saldivar-white matter differentiation is normal. The visualized portions of the orbits are normal. The visualized portions of the mastoids are normal. The visualized portions of the paranasal sinuses are normal. Left nasal bone fracture stable compared to PET CT 10/02/2024. CERVICAL SPINE: Straightening of the cervical spine, the patient is imaged in a cervical collar. 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 There is multilevel degenerative disc disease of the cervical spine is most progressed at C5-C6 which results in moderate to severe spinal canal stenosis at this level. Multilevel uncovertebral joint and facet hypertrophy with up to moderate neural foraminal stenosis at C5-C6 bilaterally. There is no acute fracture. Similar height loss of C7 when compared to PET CT 10/02/2024. The craniocervical junction is normal. The sphenoid sinus is well aerated. Carotid calcifications. Partially imaged central venous catheter on the right. Left upper lung opacification, better evaluated on prior chest CT. Partially imaged rib lytic lesions, and left third rib and possibly left first rib fractures better assessed on same day chest CT. Irregularity of the right second rib better assessed on same day CT of the chest IMPRESSION: 1. No acute intracranial hemorrhage. Small left parietal scalp contusion without subjacent fracture or hematoma. 2. Stable left frontal lobe metastasis accounting for differences in modality. 3. No evidence of acute fracture in the cervical spine. 4. Multilevel degenerative changes of the cervical spine which is most progressed at C5-C6 resulting in up to moderate to severe spinal canal stenosis at this level. 5. Left upper lung opacification, better evaluated on prior chest CT. Partially imaged rib lytic lesions, and left third rib and possibly left first rib fractures better assessed on same day chest CT. Irregularity of the right second rib better assessed on same day CT of the chest Dictated by: Asael Castellano MD The radiology attending physician has personally reviewed this study, and had reviewed and/or edited this written report and agrees with it. Electronically signed by: Aman Nunez MD, PHD Jamir Mcgarry MD IM CT PROCEDURES Final Result * CT Chest PE (CTA) Abdomen Pelvis W Contrast (05/12/2025 12:09 PM INDUSTRIAL HYGIENE ENGINEER) Anatomical Region Laterality Modality Body N/A Computed Tomogra phy 05/12/2025 12:3 8 PM INDUSTRIAL HYGIENE ENGINEER Impressions 05/12/2025 12:38 PM INDUSTRIAL HYGIENE ENGINEER 1. Worsening of metastatic disease with increase in mediastinal lymphadenopathy when compared to the most recent CT of 04/28/2025. There is worsening of adrenal gland metastasis from 03/31/2025 with worsening renal metastases and likely retroperitoneal lymphadenopathy no change in axillary lymphadenopathy and right first rib metastasis. 2. Left lung collapse may be from progression of the patient's tumor. 3. Likely post obstructive pneumonia in the left lower lobe. 4. No pulmonary embolism. Electronically signed by: Mateusz Tirado M.D. Narrative 05/12/2025 12:38 PM INDUSTRIAL HYGIENE ENGINEER EXAMINATION: CT CHEST PE (CTA) ABDOMEN PELVIS W CONTRAST HISTORY: Shortness of breath. Patient has a history of the squamous cell carcinoma TECHNIQUE: Computed tomographic images were acquired using a chest angiographic protocol optimized for pulmonary embolism. Computed tomographic examination of the abdomen and pelvis with intravenous contrast was performed using a standard protocol. Contrast enhanced transaxial images were obtained following the intravenous administration of 89 ml of nonionic contrast. Multiplanar reformatted images and three-dimensional images were obtained on the 3-D workstation and sent to the PACS archival system. COMPARISON: Prior chest CT of 04/28/2025 and prior abdominal pelvic CT from 03/31/2025 Chest:Again seen is extensive mediastinal lymphadenopathy. An example is a right paratracheal lymph node at slice position -90. On today's study this has a short axis measurement of 3.1 cm. On the prior study this had a short axis measurement of only 2.6 cm. Left paratracheal lymphadenopathy is seen. On the prior study this had a short axis measurement of 1.5 cm. On today's study it is 2.4 cm. There is complete occlusion of the left main bronchus with near complete collapse of the left lung. This is in keeping with the patient's history of lung cancer. There is likely an element of a post obstructive pneumonia in the left lower lobe. There is no pulmonary embolism. No acute aortic syndrome is seen. No supraclavicular lymphadenopathy. Extensive left axillary lymphadenopathy is again seen. An example is a left axillary lymph node that measures 2.9 cm. On the prior study this measured the same. The heart size is at upper limit of normal with severe coronary atherosclerosis. Trace pericardial fluid is seen. The bone windows of the thorax again demonstrate a metastasis with lysis of the anterior right first rib. Abdomen/pelvis: The spleen is again noted to be mildly enlarged with low attenuation within the spleen which may represent a lymphangioma without change. 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 These have increased when compared to the prior CT of 03/31/2025 with a left adrenal gland metastasis measuring 1.4 cm. On the prior study this measured only 6 mm. Bilateral renal metastases are noted which have worsened when compared to the prior abdominal pelvic CT. An example is at the left mid kidney where a metastasis measures 3.4 x 2.9 cm. On the prior study this measured 2.5 x 2.2 cm. The right renal metastases are not clearly seen on the prior study. The pancreas is unremarkable. The abdominal aorta is atherosclerotic but normal caliber. Subcentimeter retroperitoneal lymph nodes are new when compared to the prior study and could represent metastases. The colon and small bowel are normal in course and caliber. The bone windows through the abdomen and pelvis do not demonstrate any osseous metastases. Procedure Note Mateusz Tirado MD - 05/12/2025 EXAMINATION: CT CHEST PE (CTA) ABDOMEN PELVIS W CONTRAST HISTORY: Shortness of breath. Patient has a history of the squamous cell carcinoma TECHNIQUE: Computed tomographic images were acquired using a chest angiographic protocol optimized for pulmonary embolism. Computed tomographic examination of the abdomen and pelvis with intravenous contrast was performed using a standard protocol. Contrast enhanced transaxial images were obtained following the intravenous administration of 89 ml of nonionic contrast. Multiplanar reformatted images and three-dimensional images were obtained on the 3-D workstation and sent to the PACS archival system. COMPARISON: Prior chest CT of 04/28/2025 and prior abdominal pelvic CT from 03/31/2025 Chest:Again seen is extensive mediastinal lymphadenopathy. An example is a right paratracheal lymph node at slice position -90. On today's study this has a short axis measurement of 3.1 cm. On the prior study this had a short axis measurement of only 2.6 cm. Left paratracheal lymphadenopathy is seen. On the prior study this had a short axis measurement of 1.5 cm. On today's study it is 2.4 cm. There is complete occlusion of the left main bronchus with near complete collapse of the left lung. This is in keeping with the patient's history of lung cancer. There is likely an element of a post obstructive pneumonia in the left lower lobe. There is no pulmonary embolism. No acute aortic syndrome is seen. No supraclavicular lymphadenopathy. Extensive left axillary lymphadenopathy is again seen. An example is a left axillary lymph node that measures 2.9 cm. On the prior study this measured the same. The heart size is at upper limit of normal with severe coronary atherosclerosis. Trace pericardial fluid is seen. The bone windows of the thorax again demonstrate a metastasis with lysis of the anterior right first rib. Abdomen/pelvis: The spleen is again noted to be mildly enlarged with low attenuation within the spleen which may represent a lymphangioma without change. 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 These have increased when compared to the prior CT of 03/31/2025 with a left adrenal gland metastasis measuring 1.4 cm. On the prior study this measured only 6 mm. Bilateral renal metastases are noted which have worsened when compared to the prior abdominal pelvic CT. An example is at the left mid kidney where a metastasis measures 3.4 x 2.9 cm. On the prior study this measured 2.5 x 2.2 cm. The right renal metastases are not clearly seen on the prior study. The pancreas is unremarkable. The abdominal aorta is atherosclerotic but normal caliber. Subcentimeter retroperitoneal lymph nodes are new when compared to the prior study and could represent metastases. The colon and small bowel are normal in course and caliber. The bone windows through the abdomen and pelvis do not demonstrate any osseous metastases. IMPRESSION: 1. Worsening of metastatic disease with increase in mediastinal lymphadenopathy when compared to the most recent CT of 04/28/2025. There is worsening of adrenal gland metastasis from 03/31/2025 with worsening renal metastases and likely retroperitoneal lymphadenopathy no change in axillary lymphadenopathy and right first rib metastasis. 2. Left lung collapse may be from progression of the patient's tumor. 3. Likely post obstructive pneumonia in the left lower lobe. 4. No pulmonary embolism. Electronically signed by: Mateusz Tirado M.D. Jamir Mcgarry MD IMG CT PROCEDURES Final Result * POCUS Cardiac (05/12/2025 11:43 AM INDUSTRIAL HYGIENE ENGINEER) Anatomical Region Laterality Modality Other 05/12/2025 11:3 5 AM INDUSTRIAL HYGIENE ENGINEER Narrative 05/12/2025 9:54 PM INDUSTRIAL HYGIENE ENGINEER Performed by: Tomás Herndon Cardiac: Exam type: Diagnostic Exam Information: Indication(s) for Exam: Tachycardia or arrhythmia Exam Occurence: Initial Findings : Pericardial effusion: Small RV early diastolic collapse?: Absent Left ventricle: Hyperdynamic IVC: Normal IVC respiratory variation: Low collapsibility (<50%) Interpretation: Hyperdynamic LV function, Pericardial effusion WITHOUT signs of tamponade Electronically signed by Tomás Herndon on Monday, May 12, 2025 at 1:57 PM I have reviewed the images & the resident's interpretation. I agree with the findings. Images on file. Electronically signed by Majo Cesar on Monday, May 12, 2025 at 9:54 PM I have reviewed the images & the resident's interpretation. I agree with the findings. Images on file. Procedure Note Majo Cesar MD - 05/12/2025 Performed by: Tomás Herndon Cardiac: Exam type: Diagnostic Exam Information: Indication(s) for Exam: Tachycardia or arrhythmia Exam Occurence: Initial Findings : Pericardial effusion: Small RV early diastolic collapse?: Absent Left ventricle: Hyperdynamic IVC: Normal IVC respiratory variation: Low collapsibility (<50%) Interpretation: Hyperdynamic LV function, Pericardial effusion WITHOUT signsof tamponade Electronically signed by Tomás Herndon on Monday, May 12, 2025 at1:57 PM I have reviewed the images & the resident's interpretation. I agree withthe findings. Images on file. Electronically signed by Majo Cesar on Monday, May 12, 2025 at9:54 PM I have reviewed the images & the resident's interpretation. I agree withthe findings. Images on file. us Majo Cesar MD POCUS ORDERABLES Final Resu lt * Blood culture Blood Peripheral (05/12/2025 11:00 AM INDUSTRIAL HYGIENE ENGINEER) Report Final Report: No growth Blood (Peripheral) 05/12/2025 11:00 AM INDUSTRIAL HYGIENE ENGINEER 05/12/2025 11:10 AM INDUSTRIAL HYGIENE ENGINEER Narrative [facility] BENNETT - 05/16/2025 12:00 PM INDUSTRIAL HYGIENE ENGINEER From a different site than #1. Draw Blood cultures before administration of Antibiotics Collection->Peripheral 1. Blood cultures are incubated for 4 days on a continuously monitored blood culture system. The first report of a negative culture is issued within 24 hours of receipt of the specimen in the laboratory. 2. Positive culture results are reported as soon as they are detected. 3. The most important factor for detection of microbes in the setting of bloodstream infection is the volume of blood submitted for culture. Failure to collect an optimal blood volume can result in false negative blood cultures. 4. For pediatric patients, the recommended blood volume to collect follows a weight based strategy. See the electronic test catalog for collection instructions. 5. For positive blood cultures, a rapid molecular test may be performed for organism identification using the nanette ePlex blood culture identification panel for gram positive (BCID-GP) and gram negative (BCID-GN) organisms. This nucleic acid amplification test detects microbial DNA in positive blood culture broth. This assay has been cleared by the [place] Food and Drug Administration and its performance characteristics have been verified by the [facility]. For questions about this culture, contact the Microbiology Laboratory at [phone]. Interpretive data was last revised on 24. us Russ Jimenez MD LAB MICROBIOLOGY - GENERAL OR DERABLES Final Result [facility]IN [facility] [place] [address] * Blood culture Blood Peripheral (05/12/2025 11:00 AM INDUSTRIAL HYGIENE ENGINEER) Report Final Report: No growth Blood (Peripheral) 05/12/2025 11:00 AM INDUSTRIAL HYGIENE ENGINEER 05/12/2025 11:10 AM INDUSTRIAL HYGIENE ENGINEER Simran CARRION - 05/16/2025 12:00 PM INDUSTRIAL HYGIENE ENGINEER Draw Blood cultures before administration of Antibiotics Collection->Peripheral 1. Blood cultures are incubated for 4 days on a continuously monitored blood culture system. The first report of a negative culture is issued within 24 hours of receipt of the specimen in the laboratory. 2. Positive culture results are reported as soon as they are detected. 3. The most important factor for detection of microbes in the setting of bloodstream infection is the volume of blood submitted for culture. Failure to collect an optimal blood volume can result in false negative blood cultures. 4. For pediatric patients, the recommended blood volume to collect follows a weight based strategy. See the electronic test catalog for collection instructions. 5. For positive blood cultures, a rapid molecular test may be performed for organism identification using the nanette ePlex blood culture identification panel for gram positive (BCID-GP) and gram negative (BCID-GN) organisms. This nucleic acid amplification test detects microbial DNA in positive blood culture broth. This assay has been cleared by the [place] Food and Drug Administration and its performance characteristics have been verified by the [facility]. For questions about this culture, contact the Microbiology Laboratory at [phone]. Interpretive data was last revised on 24. Russ Jimenez MD LAB MICROBIOLOGY - GENERAL OR DERABLES Final Result [facility]IN [facility] [place] [address] * RI CRITICAL CARE ILL/INJURED PATIENT INIT 30-74 MIN, RI CRITICAL CARE ILL/INJURED PATIENT ADDL 30 MIN, RI CRITICAL CARE ILL/INJURED PATIENT ADDL 30 MIN, RI CRITICAL CARE ILL/INJURED PATIENT ADDL 30 MIN (05/12/2025 10:58 AM INDUSTRIAL HYGIENE ENGINEER) Narrative Russ Jimenez MD - 05/12/2025 10:58 AM INDUSTRIAL HYGIENE ENGINEER Russ Jimenez MD 05/16/2025 7:04 PM Critical Care Performed by: Russ Jimenez MD Authorized by: Russ Jimenez MD Critical care provider statement: As reflected in the history, physical exam, orders, notes, and/or MDM, I was personally present while the patient was critically ill and provided critical care services for 165 minutes, excluding time involved in separately billable procedures. Critical care was necessary to treat or prevent imminent or life-threatening deterioration of the following condition(s): unstable vital signs tachy/joseph arrhythmic event A flutter with RVR Pleural effusion Hx PNA Possible sepsis Stage 4 cancer w recent post obstructive pna sepsis severe oncologic emergency Critical care was time spent by me providing the following: continuous telemetry, continuous pulse oximetry, interpretation of bedside monitors, imaging, and arterial/venous lab draws, serial bedside patient exams and serial laboratory checks supplemental oxygen review prior cultures/records, obtain appropriate cultures and empiric broad coverage antibiotics I provided emergent necessary critical care medicine services to this patient. I ordered and reviewed test results and/or imaging studies. I spent time discussing the management of this critically ill patient with consultants and the medical staff. I spent time discussing the management and therapeutic options for this critically ill patient with the patient themselves or with the appropriate designated surrogate decision-maker. I spent time documenting in the medical record. us Russ Jimenez MD IN CLINIC/BEDSIDE ORDERABLES Final Result * POCT glucose (05/12/2025 10:46 AM INDUSTRIAL HYGIENE ENGINEER) Glucose, POC 153 70 - 199 mg/dL Blood 05/12/2025 10:4 6 AM INDUSTRIAL HYGIENE ENGINEER 05/12/2025 10:46 AM INDUSTRIAL HYGIENE ENGINEER us Russ Jimenez MD LAB POCT ORDERABLES - DEVICE Final Result Performing Organization Address [facility] Co de Phone Number BENJAMIN [facility] [place] [address] * (ABNORMAL) POCT lactate (05/12/2025 10:44 AM INDUSTRIAL HYGIENE ENGINEER) Lactate POC i-STAT 2.1(H) 0.7 - 2.0 mmol/L Blood 05/12/2025 10:4 4 AM INDUSTRIAL HYGIENE ENGINEER 05/12/2025 10:44 AM INDUSTRIAL HYGIENE ENGINEER us Russ Jimenez MD LAB POCT ORDERABLES - DEVICE Final Result Performing Organization Address City/State/[facility] Co de Phone Number [facility]JAMIN [facility] [place] [address] * XR Chest 1 Vw Portable (05/12/2025 10:43 AM INDUSTRIAL HYGIENE ENGINEER) Anatomical Region Laterality Modality Body, Chest N/A Computed Radiogr aphy 05/12/2025 10:5 8 AM INDUSTRIAL HYGIENE ENGINEER Impressions 05/12/2025 10:59 AM INDUSTRIAL HYGIENE ENGINEER The current study is compared with the prior radiograph dated 05/01/2025. Right internal jugular central venous catheter tip overlies the right atrium. The cardiomediastinal silhouette is partially obscured. There is now total opacification of the left lung, consistent with increasing collapse. The right lung is clear. Dictated by: Ganesh Ku M.D. The radiology attending physician has personally reviewed this study, and had reviewed and/or edited this written report and agrees with it. Electronically signed by: Mateusz Tirado M.D. Narrative 05/12/2025 10:59 AM INDUSTRIAL HYGIENE ENGINEER EXAMINATION: 1 view chest radiograph Procedure Note Mateusz Tirado MD - 05/12/2025 EXAMINATION: 1 view chest radiograph IMPRESSION: The current study is compared with the prior radiograph dated 05/01/2025. Right internal jugular central venous catheter tip overlies the right atrium. The cardiomediastinal silhouette is partially obscured. There is now total opacification of the left lung, consistent with increasing collapse. The right lung is clear. Dictated by: Ganesh Ku M.D. The radiology attending physician has personally reviewed this study, and had reviewed and/or edited this written report and agrees with it. Electronically signed by: Mateusz Tirado M.D. us Russ Jimenez MD IMG XR PROCEDURES Final Resul t * ECG 12-LEAD (05/12/2025 10:27 AM INDUSTRIAL HYGIENE ENGINEER) Narrative [facility] [place] 05/12/2025 10:27 AM INDUSTRIAL HYGIENE ENGINEER Jeanie Aburto MD 05/12/2025 12:36 PM ECG 12 lead Date/Time: 05/12/2025 10:27 AM Performed by: Jeanie Aburto MD Authorized by: Russ Jimenez MD Comments: Rate tachycardic to the 140s, AFib versus flutter. ST-elevation is noted in V4 through V6. No noted reciprocal changes. Compared to EKG of 04/28/2025, similar tachycardia although new elevations in V4 through V6. No STEMI. Recommend further cardiac and further workup in the ED. Russ Jimenez MD ECG ORDERABLES Edited Result - Final Performing Organization Address [facility] Co de Phone Number [facility] * Troponin I high-sensitivity series (baseline, 2hr, 4hr, 6hr) (05/12/2025 10:27 AM INDUSTRIAL HYGIENE ENGINEER) [facility] Trop I hs 9 <=35 ng/L Comment: Interpretive Data For further hscTnI resources including the diagnostic algorithm and an aid in interpretation, copy and paste this link: https://bjhlab.testcatalog.org/show/hsTrop-1 Current Interpretive Data last revised 2020. Blood 05/12/2025 10:2 7 AM INDUSTRIAL HYGIENE ENGINEER 05/12/2025 10:54 AM INDUSTRIAL HYGIENE ENGINEER Russ Jimenez MD LAB BLOOD ORDERABLES Final Re sult Performing Organization Address [facility] de Phone Number [facility] Department [place] [address] * (ABNORMAL) Sepsis Lactate w/ Reflex (05/12/2025 10:27 AM INDUSTRIAL HYGIENE ENGINEER) [facility] Sepsis Lactate 2.8(H) 0.7 - 2.0 mmol/L Blood 05/12/2025 10:2 7 AM INDUSTRIAL HYGIENE ENGINEER 05/12/2025 10:48 AM INDUSTRIAL HYGIENE ENGINEER Result [facility] Russ Jimenez MD LAB BLOOD ORDERABLES Final Re sult Performing Organization Address [facility] Co de Phone Number [facility] Department [place] [address] * eGFR (05/12/2025 10:27 AM INDUSTRIAL HYGIENE ENGINEER) Pathologist [facility] eGFR >90 >=60 mL/min/1. 73 m2 Comment: Interpretive Data Reference Interval Normal >/= 90 mL/min/1.73m2 Mildly decreased* 60 - 89 mL/min/1.73m2 Mildly to moderately decreased 45 - 59 mL/min/1.73m2 Moderately to severely decreased 30 - 44 mL/min/1.73m2 Severely decreased 15 - 29 mL/min/1.73m2 Kidney Failure < 15 mL/min/1.73m2 *Relative to young adult level Estimated glomerular filtration rate is determined by the 2020 CKD-EPI equation recommended by the National Kidney Foundation (A Unifying Approach to GFR Estimation: Recommendations of the NKF-ASK Task Force on Reassessing the Inclusion of Race in Diagnosing Kidney Disease, JASN 2020). The CKD-EPI equation should not be used for patients with unstable renal function and has not been validated in children and those over 70. Current interpretive data was last reviewed 2021. Blood 05/12/2025 10:2 7 AM INDUSTRIAL HYGIENE ENGINEER 05/12/2025 10:54 AM INDUSTRIAL HYGIENE ENGINEER us Russ Jimenez MD LAB BLOOD ORDERABLES Final Re sult [facility] [place] [address] * (ABNORMAL) Differential, auto (05/12/2025 10:27 AM INDUSTRIAL HYGIENE ENGINEER) Pathologist [facility] Neutrophil abs 9.78(H) 1.50 - 6.50 K/cumm Imm gran abs 0.06 0.00 - 0.10 K/cumm [facility] Lymphocyte abs 1.08 0.80 - 3.30 K/cumm [facility] Monocyte abs 0.71 0.20 - 0.80 K/cumm [facility] Eosinophil abs 0.08 0.00 - 0.50 K/cumm [facility] Basophil abs 0.05 0.00 - 0.10 K/cumm [facility] Neutrophil pct 83.2 % [facility] Comment: Interpretive Data Percent cell count reference ranges are not reported, since discordance with absolute values may lead to misinterpretation of CBC data. Current Interpretive Data was last revised on 2017. Imm gran pct 0.5 % [facility] Comment: Interpretive Data Percent cell count reference ranges are not reported, since discordance with absolute values may lead to misinterpretation of CBC data. Current Interpretive Data was last revised on 2017. Lymphocyte pct 9.2 % [facility] Comment: Interpretive Data Percent cell count reference ranges are not reported, since discordance with absolute values may lead to misinterpretation of CBC data. Current Interpretive Data was last revised on 2017. Monocyte pct 6.0 % [facility] Comment: Interpretive Data Percent cell count reference ranges are not reported, since discordance with absolute values may lead to misinterpretation of CBC data. Current Interpretive Data was last revised on 2017. Eosinophil pct 0.7 % [facility] Comment: Interpretive Data Percent cell count reference ranges are not reported, since discordance with absolute values may lead to misinterpretation of CBC data. Current Interpretive Data was last revised on 2017. Basophil pct 0.4 % [facility] Comment: Interpretive Data Percent cell count reference ranges are not reported, since discordance with absolute values may lead to misinterpretation of CBC data. Current Interpretive Data was last revised on 2017. Blood 05/12/2025 10:2 7 AM INDUSTRIAL HYGIENE ENGINEER 05/12/2025 10:54 AM INDUSTRIAL HYGIENE ENGINEER us Russ Jimenez MD LAB BLOOD ORDERABLES Final Re sult [facility] Department [place] [address] * (ABNORMAL) Pro B-type natriuretic peptide (05/12/2025 10:27 AM INDUSTRIAL HYGIENE ENGINEER) NT-proBNP 681(H) <=300 pg/mL Comment: Interpretive Comments: A. Dyspnea in Acute Care Setting All Ages: < 300 pg/ml, acute heart failure unlikely. < 50 yrs: 300 - 450 pg/ml, further investigation warranted. > 450 pg/ml, acute heart failure likely. 50 - 74 yrs: 300 - 900 pg/ml, further investigation warranted. > 900 pg/ml, acute heart failure likely . > or = 75 yrs: 450 - 1800 pg/ml, further investigation warranted. > 1800 pg/ml, acute heart failure likely. B. Non-acute Setting < 75 yrs < 125 pg/ml, rules out heart failure. > or = 125 pg/ml, further investigation warranted. > or = 75 yrs < 450 pg/ml, rules out heart failure. > or = 450 pg/ml, further investigation warranted. - Knowledge of each individual patient's NT-proBNP range may be more useful than using similar cut-points for every patient. Please note that marked elevations in NT-proBNP levels may be observed in state other than Left Ventricular Congestive Failure, including: acute coronary syndromes, right heart strain/failure (including pulmonary embolism and cor pulmonale), critical illness, renal failure, as well as advanced age. - References: 1. Bishnu POE et.al. Eur Heart J. 2006:27:330-337. 2. Morgan RW, Elizabeth TRIPATHI. J. AM Tori Cardiol: Cardiovasc Imag. 2009;2: 216- 225. Interpretive Data Last Revised Date: 2018. Blood 05/12/2025 10:2 7 AM INDUSTRIAL HYGIENE ENGINEER 05/12/2025 10:54 AM INDUSTRIAL HYGIENE ENGINEER us Russ Jimenez MD LAB BLOOD ORDERABLES Final Re sult Performing Organization Address City/State/[facility] Co de Phone Number [facility] [place] [address] * Thyroid Function [place] (05/12/2025 10:27 AM INDUSTRIAL HYGIENE ENGINEER) TSH 1.69 0.30 - 4.20 mcIUnit/mL Blood 05/12/2025 10:2 7 AM INDUSTRIAL HYGIENE ENGINEER 05/12/2025 10:54 AM INDUSTRIAL HYGIENE ENGINEER us Russ Jimenez MD LAB BLOOD ORDERABLES Final Re sult Performing Organization Address City/[facility] de Phone Number [facility] [place] [address] * (ABNORMAL) CBC with auto differential (05/12/2025 10:27 AM INDUSTRIAL HYGIENE ENGINEER) [facility] WBC 11.76(H) 3.80 - 9.90 K/cumm Hgb 14.1 13.0 - 17.5 g/dL [facility] Hct 47.9 38.9 - 50.3 % [facility] Plt 224 150 - 400 K/cumm [facility] MPV 9.0(L) 9.1 - 12.3 fL [facility] RBC 6.27(H) 4.30 - 5.80 M/cumm [facility] MCV 76.4(L) 81.3 - 96.4 fL [facility] MCH 22.5(L) 27.1 - 33.3 pg [facility] MCHC 29.4(L) 32.3 - 35.7 g/dL [facility] RDW CV 18.7(H) 11.1 - 14.9 % [facility] RDW SD 47.5 35.7 - 48.1 fL [facility] NRBC abs 0.00 0.00 - 0.01 K/cumm [facility] Blood 05/12/2025 10:2 7 AM INDUSTRIAL HYGIENE ENGINEER 05/12/2025 10:54 AM INDUSTRIAL HYGIENE ENGINEER Russ Jimenez MD LAB BLOOD ORDERABLES Final Re sult Performing Organization Address [facility] Co de Phone Number [facility] [place] [address] * (ABNORMAL) aPTT (05/12/2025 10:27 AM INDUSTRIAL HYGIENE ENGINEER) [facility] aPTT 41(H) 26 - 38 sec Comment: Interpretive Data Heparin therapeutic range: 66.0 - 100.0 seconds. Range based on correlation with therapeutic heparin activity range of 0.3 - 0.7 Units/mL. Blood 05/12/2025 10:2 7 AM INDUSTRIAL HYGIENE ENGINEER 05/12/2025 10:51 AM INDUSTRIAL HYGIENE ENGINEER us Russ Jimenez MD LAB BLOOD ORDERABLES Final Re sult Performing Organization Address City/[facility]/ZIP Co de Phone Number [facility] [place] [address] * (ABNORMAL) Protime-INR (05/12/2025 10:27 AM INDUSTRIAL HYGIENE ENGINEER) PT 18.8(H) 10.2 - 13.5 sec INR 1.68(H) 0.90 - 1.20 [facility] Comment: Interpretive data Oral anticoagulant therapeutic ranges: Venous thromboembolism prophylaxis or treatment: 2.0-3.0 CARDIOLOGY Standard range: 2.0-3.0 High-intensity range: 2.5-3.5 Refer to indication-specific guidelines for appropriate target ranges for prosthetic heart valve replacement. Current interpretive data was last revised on 2019. Blood 05/12/2025 10:2 7 AM INDUSTRIAL HYGIENE ENGINEER 05/12/2025 10:51 AM INDUSTRIAL HYGIENE ENGINEER Russ Jimenez MD LAB BLOOD ORDERABLES Final Re sult Performing Organization Address [facility] [place] [address] * Type and screen (05/12/2025 10:27 AM INDUSTRIAL HYGIENE ENGINEER) Marcus, indirect Negative ABO Rh O Positive [facility] Blood 05/12/2025 10:2 7 AM INDUSTRIAL HYGIENE ENGINEER 05/12/2025 10:55 AM INDUSTRIAL HYGIENE ENGINEER Narrative [facility] - 05/12/2025 11:44 AM INDUSTRIAL HYGIENE ENGINEER Has the patient had Daratumumab or Isatuximab in the past 6 months?->Unknown Russ Jimenez MD LAB BLOOD BANK TEST ORDERABLE S Final Result Performing Organization Address City/[facility]/ZIP Co de Phone Number [facility] [place] [address] * (ABNORMAL) Blood gas, venous (05/12/2025 10:27 AM INDUSTRIAL HYGIENE ENGINEER) pH, Venous 7.34 7.32 - 7.43 PCO2, Venous 58(H) 40 - 50 mmHg [facility] PO2, Venous 88 mmHg [facility] Comment: Interpretive Data No Reference Range Established Current Interpretive Data was last revised on 2017. HCO3 Venous, Calculated 31(H) 20 - 30 mmol/L [facility] BE, venous 4 mmol/L [facility] Comment: Interpretive Data No Reference Range Established Current Interpretive Data was last revised on 2017. Blood 05/12/2025 10:2 7 AM INDUSTRIAL HYGIENE ENGINEER 05/12/2025 10:48 AM INDUSTRIAL HYGIENE ENGINEER us Russ Jimenez MD LAB BLOOD ORDERABLES Final Re sult [facility] [place] [address] * (ABNORMAL) Comprehensive metabolic panel (05/12/2025 10:27 AM INDUSTRIAL HYGIENE ENGINEER) Sodium 133(L) 135 - 145 mmol/L Potassium, pl 4.4 3.3 - 4.9 mmol/L [facility] Chloride 95(L) 97 - 110 mmol/L [facility] CO2 30 22 - 32 mmol/L [facility] Anion gap 8 2 - 15 mmol/L [facility] BUN 9 6 - 25 mg/dL [facility] Creatinine 0.63(L) 0.80 - 1.30 mg/dL [facility] Glucose 139 70 - 199 mg/dL [facility] Comment: Interpretive Data Fasting glucose >/= 126 mg/dl is diagnostic for diabetes. Fasting is defined as no caloric intake for at least 8 hours. Fasting glucose between 100 mg/dl to 125 mg/dl is diagnostic of prediabetes. In a patient with classic symptoms of hyperglycemia or hyperglycemic crisis, a random glucose >/= 200 mg/dl is diagnostic for diabetes. In the absence of unequivocal hyperglycemia, results should be confirmed by repeat testing. The classification and Diagnosis of Diabetes Diabetes Care 2021; 46: S19-S40. Current interpretive data was last revised 2022. Calcium 11.1(H) 8.5 - 10.3 mg/dL [facility] Bilirubin, total 0.5 0.1 - 1.2 mg/dL [facility] Protein, pl 7.4 6.5 - 8.5 g/dL [facility] Albumin 3.1(L) 3.5 - 5.0 g/dL [facility] Alk phos 72 40 - 130 Units/L [facility] ALT 20 7 - 55 Units/L [facility] AST 44 10 - 50 Units/L [facility] Blood 05/12/2025 10:2 7 AM INDUSTRIAL HYGIENE ENGINEER 05/12/2025 10:54 AM INDUSTRIAL HYGIENE ENGINEER us Russ Jimenez MD LAB BLOOD ORDERABLES Final Re sult [facility] [place] [address] * (ABNORMAL) Differential, auto (05/08/2025 8:01 AM INDUSTRIAL HYGIENE ENGINEER) Neutrophil abs 7.11(H) 1.50 - 6.50 K/cumm Comment:Testing performed by : [facility], [address] [place], [place] [phone] Lymphocyte abs 1.13 0.80 - 3.30 K/cumm [facility] Comment:Testing performed by : [facility], [address] [place] [phone] Monocyte abs 0.74 0.20 - 0.80 K/cumm [facility] Comment:Testing performed by : [facility], [address] [place] [phone] Eosinophil abs 0.24 0.00 - 0.50 K/cumm [facility] Comment:Testing performed by : [facility], [address] [place] [phone] Basophil abs 0.05 0.00 - 0.10 K/cumm [facility] Comment:Testing performed by : [facility], [address] [place] [phone] Neutrophil pct 76.7 % [facility] Comment: Interpretive Data Percent cell count reference ranges are not reported, since discordance with absolute values may lead to misinterpretation of CBC data. Current Interpretive Data was last revised on 2017. Testing performed by: [facility], [address] [place] [phone] Lymphocyte pct 12.2 % [facility] Comment: Interpretive Data Percent cell count reference ranges are not reported, since discordance with absolute values may lead to misinterpretation of CBC data. Current Interpretive Data was last revised on 2017. Testing performed by: [facility], [address] [place] [phone] Monocyte pct 8.0 % [facility] Comment: Interpretive Data Percent cell count reference ranges are not reported, since discordance with absolute values may lead to misinterpretation of CBC data. Current Interpretive Data was last revised on 2017. Testing performed by: [facility], [address] [place] [phone] Eosinophil pct 2.5 % [facility] Comment: Interpretive Data Percent cell count reference ranges are not reported, since discordance with absolute values may lead to misinterpretation of CBC data. Current Interpretive Data was last revised on 2017. Testing performed by: [facility], [address] [place] [id number] Basophil pct 0.6 % C[facility]ER [facility]J Comment: Interpretive Data Percent cell count reference ranges are not reported, since discordance with absolute values may lead to misinterpretation of CBC data. Current Interpretive Data was last revised on 2017. Testing performed by: [facility], [address] [place] [phone] Blood 05/08/2025 8:01 AM INDUSTRIAL HYGIENE ENGINEER 05/08/2025 8:01 AM INDUSTRIAL HYGIENE ENGINEER us Sea Ocampo MD LAB BLOOD ORDERABLES Lena sirisha Result [facility] [place] [address] * (ABNORMAL) CBC with auto differential (05/08/2025 8:01 AM INDUSTRIAL HYGIENE ENGINEER) WBC 9.26 3.80 - 9.90 K/cumm Comment:Testing performed by : [facility], [address] [place] [address] Hgb 13.9 13.0 - 17.5 g/dL [facility] Comment:Testing performed by : [facility], [address] [place] [address] Hct 43.7 38.9 - 50.3 % [facility] Comment:Testing performed by : [facility], [address] [place] [address] Plt 265 150 - 400 K/cumm [facility]JAMIN CARRION Comment:Testing performed by : [facility], [address] [place] [address] MPV 6.6(L) 6.8 - 10.4 fL [facility] Comment:Testing performed by : [facility], [address] [place] [address] RBC 6.06(H) 4.30 - 5.80 M/cumm CERBOUBACAR BJ Comment:Testing performed by : [facility], [address] [place] [address] MCV 72.1(L) 81.3 - 96.4 fL [facility]ER[facility]OU[facility]ACAR BJ Comment:Testing performed by : [facility], [address] [place] [address] MCH 22.9(L) 27.1 - 33.3 pg [facility]ER[facility]ACAR [facility]J Comment:Testing performed by : [facility], [address] [place] [address] MCHC 31.8(L) 32.3 - 35.7 g/dL [facility]J Comment:Testing performed by : [facility], [address] [place] [address] RDW CV 18.3(H) 11.1 - 14.9 % [facility] Comment:Testing performed by : [facility], [address] [place], [place] [phone] NRBC abs 0.00 0.00 - 0.01 K/cumm [facility] Comment:Testing performed by : [facility], [address] [place], [place] [phone] Blood 05/08/2025 8:01 AM INDUSTRIAL HYGIENE ENGINEER 05/08/2025 8:01 AM INDUSTRIAL HYGIENE ENGINEER Sea Ocampo MD LAB BLOOD ORDERABLES Lena l Result Performing Organization Address [facility] Co de Phone Number [facility] [place] [address] * (ABNORMAL) Reticulocyte Count (05/08/2025 8:01 AM INDUSTRIAL HYGIENE ENGINEER) [facility] Retics, absolute 104(H) 20 - 100 K/cumm Comment:Testing performed by : [facility], [address] [place], [place] [phone] Retics 1.7 0.5 - 1.8 % [facility] Comment:Testing performed by : [facility], [address] [place], [place] [phone] Blood 05/08/2025 8:01 AM INDUSTRIAL HYGIENE ENGINEER 05/08/2025 8:01 AM INDUSTRIAL HYGIENE ENGINEER Sea Ocampo MD LAB BLOOD ORDERABLES Lena l Result Performing Organization Address City/[facility] Co de Phone Number [facility] [place] [address] * eGFR (05/08/2025 8:00 AM INDUSTRIAL HYGIENE ENGINEER) [facility] eGFR >90 >=60 mL/min/1. 73 m2 Comment: Interpretive Data Reference Interval Normal >/= 90 mL/min/1.73m2 Mildly decreased* 60 - 89 mL/min/1.73m2 Mildly to moderately decreased 45 - 59 mL/min/1.73m2 Moderately to severely decreased 30 - 44 mL/min/1.73m2 Severely decreased 15 - 29 mL/min/1.73m2 Kidney Failure < 15 mL/min/1.73m2 *Relative to young adult level Estimated glomerular filtration rate is determined by the 2020 CKD-EPI equation recommended by the National Kidney Foundation (A Unifying Approach to GFR Estimation: Recommendations of the NKF-ASK Task Force on Reassessing the Inclusion of Race in Diagnosing Kidney Disease, JASN 2020). The CKD-EPI equation should not be used for patients with unstable renal function and has not been validated in children and those over 70. Current interpretive data was last reviewed 2021. Blood 05/08/2025 8:00 AM INDUSTRIAL HYGIENE ENGINEER 05/08/2025 8:04 AM INDUSTRIAL HYGIENE ENGINEER Sea Ocampo MD LAB BLOOD ORDERABLES Lena l Result Performing Organization Address City/[facility]/ZIP Co de Phone Number [facility] [place] [address] * Phosphorus (05/08/2025 8:00 AM INDUSTRIAL HYGIENE ENGINEER) Phosphorus, pl 2.8 2.3 - 4.5 mg/dL Blood 05/08/2025 8:00 AM INDUSTRIAL HYGIENE ENGINEER 05/08/2025 8:04 AM INDUSTRIAL HYGIENE ENGINEER Sea Ocampo MD LAB BLOOD ORDERABLES Lena l Result [facility] [place] [address] * Magnesium (05/08/2025 8:00 AM INDUSTRIAL HYGIENE ENGINEER) Magnesium 2.0 1.4 - 2.5 mg/dL Blood 05/08/2025 8:00 AM INDUSTRIAL HYGIENE ENGINEER 05/08/2025 8:04 AM INDUSTRIAL HYGIENE ENGINEER us Sea Ocampo MD LAB BLOOD ORDERABLES Lena l Result Performing Organization Address City/[facility]/ZIP Co de Phone Number [facility] [place] [address] * Lipase (05/08/2025 8:00 AM INDUSTRIAL HYGIENE ENGINEER) Lipase 16 10 - 99 Units/L Blood 05/08/2025 8:00 AM INDUSTRIAL HYGIENE ENGINEER 05/08/2025 8:04 AM INDUSTRIAL HYGIENE ENGINEER Sea Ocampo MD LAB BLOOD ORDERABLES Lena l Result Performing Organization Address [facility] [place] [address] * Lactate dehydrogenase (LD) (05/08/2025 8:00 AM INDUSTRIAL HYGIENE ENGINEER) Lactate dehydrogenase (LDH) 229 100 - 250 Units/L Blood 05/08/2025 8:00 AM INDUSTRIAL HYGIENE ENGINEER 05/08/2025 8:04 AM INDUSTRIAL HYGIENE ENGINEER Sea Ocampo MD LAB BLOOD ORDERABLES Lena l Result Performing Organization Address [facility] Co de Phone Number [facility] [place] [address] * Gamma GT (05/08/2025 8:00 AM INDUSTRIAL HYGIENE ENGINEER) GGT 42 10 - 50 Units/L Blood 05/08/2025 8:00 AM INDUSTRIAL HYGIENE ENGINEER 05/08/2025 8:04 AM INDUSTRIAL HYGIENE ENGINEER Sea Ocampo MD LAB BLOOD ORDERABLES Lena l Result Performing Organization Address City/State/[facility] Co de Phone Number [facility] [place] [address] * Bilirubin, direct (05/08/2025 8:00 AM INDUSTRIAL HYGIENE ENGINEER) [facility] Bilirubin, direct 0.2 0.1 - 0.3 mg/dL Blood 05/08/2025 8:00 AM INDUSTRIAL HYGIENE ENGINEER 05/08/2025 8:04 AM INDUSTRIAL HYGIENE ENGINEER us Sea Ocampo MD LAB BLOOD ORDERABLES Lena l Result Performing Organization Address [facility] Co de Phone Number [facility] [place] [address] * Amylase (05/08/2025 8:00 AM INDUSTRIAL HYGIENE ENGINEER) [facility] Amylase 34 30 - 99 Units/L Blood 05/08/2025 8:0 0 AM INDUSTRIAL HYGIENE ENGINEER 05/08/2025 8:04 AM INDUSTRIAL HYGIENE ENGINEER Sea Ocampo MD LAB BLOOD ORDERABLES Lena l Result Performing Organization Address [facility] de Phone Number [facility] [place] [address] * (ABNORMAL) Comprehensive metabolic panel (05/08/2025 8:00 AM INDUSTRIAL HYGIENE ENGINEER) [facility] Sodium 134(L) 135 - 145 mmol/L Potassium, pl 4.3 3.3 - 4.9 mmol/L [facility] Chloride 98 97 - 110 mmol/L [facility] CO2 30 22 - 32 mmol/L [facility] Anion gap 6 2 - 15 mmol/L [facility] BUN 10 6 - 25 mg/dL [facility] Creatinine 0.63(L) 0.80 - 1.30 mg/dL [facility] Glucose 160 70 - 199 mg/dL [facility] Comment: Interpretive Data Fasting glucose >/= 126 mg/dl is diagnostic for diabetes. Fasting is defined as no caloric intake for at least 8 hours. Fasting glucose between 100 mg/dl to 125 mg/dl is diagnostic of prediabetes. In a patient with classic symptoms of hyperglycemia or hyperglycemic crisis, a random glucose >/= 200 mg/dl is diagnostic for diabetes. In the absence of unequivocal hyperglycemia, results should be confirmed by repeat testing. The classification and Diagnosis of Diabetes Diabetes Care 2021; 46: S19-S40. Current interpretive data was last revised 2022. Calcium 10.7(H) 8.5 - 10.3 mg/dL [facility] Bilirubin, total 0.4 0.1 - 1.2 mg/dL [facility] Protein, pl 7.3 6.5 - 8.5 g/dL [facility] Albumin 3.2(L) 3.5 - 5.0 g/dL [facility] Alk phos 64 40 - 130 Units/L [facility] ALT 16 7 - 55 Units/L [facility] AST 22 10 - 50 Units/L [facility] Blood 05/08/2025 8:00 AM INDUSTRIAL HYGIENE ENGINEER 05/08/2025 8:04 AM INDUSTRIAL HYGIENE ENGINEER us Sea Ocampo MD LAB BLOOD ORDERABLES Lena grimm Result [facility] [place] [address] * (ABNORMAL) Urinalysis reflex to microscopic and culture Urine (05/08/2025 7:52 AM INDUSTRIAL HYGIENE ENGINEER) Color, ur Straw Yellow Clarity, ur Clear Clear [facility] Specific gravity, ur 1.010 1.003 - 1.030 [facility] pH, urine 6.5 [facility] Comment: Interpretive Data U rine pH is affected by diet, medications, systemic acid-base disturbances, and renal tubular function. pH may affect urinary stone formation. For example, urine pH below 6.0 may help reduce the tendency for calcium phosphate stones and pH greater than 6.0 may reduce the tendency for uric acid stone formation. Source: Todd [employer] Current Interpretive Data was last revised on 2017 Protein, ur ql Negative Negative [facility] Glucose, ur ql 4+(A) Negative [facility] Ketones, ur Negative Negative [facility] Bilirubin, ur Negative Negative [facility] Blood, ur Negative Negative CERNER [facility] Urobilinogen, ur <2.0 <2.0 mg/dL [facility] Nitrite, ur Negative Negative [facility] Leukocyte esterase, ur Negative [facility] UA reflex comment Reflex conditions for microscopic UA and culture not met. [facility] Urine 05/08/2025 7:52 AM INDUSTRIAL HYGIENE ENGINEER 05/08/2025 7:52 AM INDUSTRIAL HYGIENE ENGINEER us Sea Ocampo MD LAB MICROBIOLOGY - GENERA L ORDERABLES Final Result [facility] [place] [address] * XR Chest 1 View (05/01/2025 1:22 PM INDUSTRIAL HYGIENE ENGINEER) Anatomical Region Laterality Modality Body, Chest N/A Digital Radiogra phy 05/01/2025 1:36 PM INDUSTRIAL HYGIENE ENGINEER Impressions 05/01/2025 1:36 PM INDUSTRIAL HYGIENE ENGINEER The current study is compared with the prior radiograph dated 01/14/2025. Right-sided port catheter has tip overlying right atrium. There is new almost complete collapse of the left lung. This is likely postobstructive as the left mainstem bronchus is markedly narrowed A small portion of the left upper lobe is aerated. The aerated portion of the left upper lobe does have patchy airspace opacity concerning for a extensive pneumonia. Right lung normal. Cardiomediastinal silhouette partially obscured Electronically signed by: Nicki Almazan M.D. Narrative 05/01/2025 1:36 PM INDUSTRIAL HYGIENE ENGINEER EXAMINATION: 1 view chest radiograph Procedure Note Nicki Almazan MD - 05/01/2025 EXAMINATION: 1 view chest radiograph IMPRESSION: The current study is compared with the prior radiograph dated 01/14/2025. Right-sided port catheter has tip overlying right atrium. There is new almost complete collapse of the left lung. This is likely postobstructive as the left mainstem bronchus is markedly narrowed A small portion of the left upper lobe is aerated. The aerated portion of the left upper lobe does have patchy airspace opacity concerning for a extensive pneumonia. Right lung normal. Cardiomediastinal silhouette partially obscured Electronically signed by: Nicki Almazan M.D. Kalia Carmona MD IMG XR PROCEDURE S Final Result * Infection Prevention Last auris PCR, surveillance Axilla/Groin (05/01/2025 11:04 AM INDUSTRIAL HYGIENE ENGINEER) Last auris DNA Not Detected Not Detected [facility] Comment: Interpretive Data Testing performed by [facility] using the Sadie nanette 6800 Last auris assay. This assay detects DNA from Last auris using Real-Time PCR. This assay is laboratory developed and is not cleared by the [facility] Food and Drug Administration. The performance characteristics have been verified by the [facility]. Axilla/Groin 05/01/2025 11:0 4 AM INDUSTRIAL HYGIENE ENGINEER 05/01/2025 11:21 AM INDUSTRIAL HYGIENE ENGINEER Narrative [facility] - 05/02/2025 5:57 AM INDUSTRIAL HYGIENE ENGINEER Order placed by [facility] due to ring surveillance. Instant Order Generic Provider LAB MICROBIOLOGY - GENERAL ORDERABLES Final Result Performing Organization Address City/[facility]/ZIP Co de Phone Number [facility] [place] [address] [facility] * (ABNORMAL) aPTT (05/01/2025 5:56 AM INDUSTRIAL HYGIENE ENGINEER) aPTT 90(H) 26 - 38 sec Comment: Interpretive Data Heparin therapeutic range: 66.0 - 100.0 seconds. Range based on correlation with therapeutic heparin activity range of 0.3 - 0.7 Units/mL. Blood 05/01/2025 5:56 AM INDUSTRIAL HYGIENE ENGINEER 05/01/2025 6:08 AM INDUSTRIAL HYGIENE ENGINEER Kalia Carmona MD LAB BLOOD ORDERA BLES Final Result [facility] [place] [address] * (ABNORMAL) aPTT (04/30/2025 10:13 PM INDUSTRIAL HYGIENE ENGINEER) aPTT 62(H) 26 - 38 sec Comment: Interpretive Data Heparin therapeutic range: 66.0 - 100.0 seconds. Range based on correlation with therapeutic heparin activity range of 0.3 - 0.7 Units/mL. Blood 04/30/2025 10:1 3 PM INDUSTRIAL HYGIENE ENGINEER 04/30/2025 10:31 PM INDUSTRIAL HYGIENE ENGINEER Kalia Carmona MD LAB BLOOD ORDERA BLES Final Result [facility] [place] [address] * eGFR (04/30/2025 8:39 PM INDUSTRIAL HYGIENE ENGINEER) eGFR >90 >=60 mL/min/1. 73 m2 Comment: Interpretive Data Reference Interval Normal >/= 90 mL/min/1.73m2 Mildly decreased* 60 - 89 mL/min/1.73m2 Mildly to moderately decreased 45 - 59 mL/min/1.73m2 Moderately to severely decreased 30 - 44 mL/min/1.73m2 Severely decreased 15 - 29 mL/min/1.73m2 Kidney Failure < 15 mL/min/1.73m2 *Relative to young adult level Estimated glomerular filtration rate is determined by the 2020 CKD-EPI equation recommended by the National Kidney Foundation (A Unifying Approach to GFR Estimation: Recommendations of the NKF-ASK Task Force on Reassessing the Inclusion of Race in Diagnosing Kidney Disease, JASN 2020). The CKD-EPI equation should not be used for patients with unstable renal function and has not been validated in children and those over 70. Current interpretive data was last reviewed 2021. Blood 04/30/2025 8:39 PM INDUSTRIAL HYGIENE ENGINEER 04/30/2025 8:58 PM INDUSTRIAL HYGIENE ENGINEER Kalia Carmona MD LAB BLOOD ORDERA BLES Final Result [facility] [place] [address] * Differential, auto (04/30/2025 8:39 PM INDUSTRIAL HYGIENE ENGINEER) Neutrophil abs 6.11 1.50 - 6.50 K/cumm Imm gran abs 0.06 0.00 - 0.10 K/cumm [facility] Lymphocyte abs 1.66 0.80 - 3.30 K/cumm [facility] Monocyte abs 0.53 0.20 - 0.80 K/cumm [facility] Eosinophil abs 0.17 0.00 - 0.50 K/cumm [facility] Basophil abs 0.05 0.00 - 0.10 K/cumm CERNER [facility] Neutrophil pct 71.2 % [facility] Comment: Interpretive Data Percent cell count reference ranges are not reported, since discordance with absolute values may lead to misinterpretation of CBC data. Current Interpretive Data was last revised on 2017. Imm gran pct 0.7 % [facility] Comment: Interpretive Data Percent cell count reference ranges are not reported, since discordance with absolute values may lead to misinterpretation of CBC data. Current Interpretive Data was last revised on 2017. Lymphocyte pct 19.3 % [facility] Comment: Interpretive Data Percent cell count reference ranges are not reported, since discordance with absolute values may lead to misinterpretation of CBC data. Current Interpretive Data was last revised on 2017. Monocyte pct 6.2 % [facility] Comment: Interpretive Data Percent cell count reference ranges are not reported, since discordance with absolute values may lead to misinterpretation of CBC data. Current Interpretive Data was last revised on 2017. Eosinophil pct 2.0 % [facility] Comment: Interpretive Data Percent cell count reference ranges are not reported, since discordance with absolute values may lead to misinterpretation of CBC data. Current Interpretive Data was last revised on 2017. Basophil pct 0.6 % CERNER [facility] Comment: Interpretive Data Percent cell count reference ranges are not reported, since discordance with absolute values may lead to misinterpretation of CBC data. Current Interpretive Data was last revised on 2017. Blood 04/30/2025 8:3 9 PM INDUSTRIAL HYGIENE ENGINEER 04/30/2025 8:58 PM INDUSTRIAL HYGIENE ENGINEER us Kalia Carmona MD LAB BLOOD ORDERA BLES Final Result Performing Organization Address City/[facility]/ZIP Co de Phone Number [facility] [place] [address] * Critical Result Callback Hematology (04/30/2025 8:39 PM INDUSTRIAL HYGIENE ENGINEER) Date Notified [id number] Time Notified 21:51 [facility] TestName aPTT [facility] Called/Read Back Amrita Boyd [facility] Credentials RN [facility] Called By [facility] Blood 04/30/2025 8:39 PM INDUSTRIAL HYGIENE ENGINEER 04/30/2025 8:59 PM INDUSTRIAL HYGIENE ENGINEER us Renetta Gore MD LAB BLOOD ORDERABLES Final Re sult Performing Organization Address [facility] [place] [address] * (ABNORMAL) CBC with auto differential (04/30/2025 8:39 PM INDUSTRIAL HYGIENE ENGINEER) WBC 8.58 3.80 - 9.90 K/cumm Hgb 12.2(L) 13.0 - 17.5 g/dL [facility] Hct 40.6 38.9 - 50.3 % [facility] Plt 270 150 - 400 K/cumm [facility] MPV 9.5 9.1 - 12.3 fL [facility] RBC 5.36 4.30 - 5.80 M/cumm [facility] MCV 75.7(L) 81.3 - 96.4 fL [facility] MCH 22.8(L) 27.1 - 33.3 pg [facility] MCHC 30.0(L) 32.3 - 35.7 g/dL [facility] RDW CV 17.3(H) 11.1 - 14.9 % [facility] RDW SD 46.6 35.7 - 48.1 fL [facility] NRBC abs 0.00 0.00 - 0.01 K/cumm [facility] Blood 04/30/2025 8:39 PM INDUSTRIAL HYGIENE ENGINEER 04/30/2025 8:58 PM INDUSTRIAL HYGIENE ENGINEER Kalia Carmona MD LAB BLOOD ORDERA BLES Final Result Performing Organization Address [facility] Co de Phone Number [facility] [place] [address] * (ABNORMAL) aPTT (04/30/2025 8:39 PM INDUSTRIAL HYGIENE ENGINEER) aPTT >150(C) 26 - 38 sec Comment: No clot detected in sample Repeated and verified - [id number] - 04/30/25, 9:46 PM Interpretive Data Heparin therapeutic range: 66.0 - 100.0 seconds. Range based on correlation with therapeutic heparin activity range of 0.3 - 0.7 Units/mL. Blood 04/30/2025 8:39 PM INDUSTRIAL HYGIENE ENGINEER 04/30/2025 8:59 PM INDUSTRIAL HYGIENE ENGINEER Renetta Gore MD LAB BLOOD ORDERABLES Final Re sult Performing Organization Address [facility] Co de Phone Number [facility] [place] [address] * Phosphorus (04/30/2025 8:39 PM INDUSTRIAL HYGIENE ENGINEER) Phosphorus, pl 3.2 2.3 - 4.5 mg/dL Blood 04/30/2025 8:39 PM INDUSTRIAL HYGIENE ENGINEER 04/30/2025 8:58 PM INDUSTRIAL HYGIENE ENGINEER Kalia Carmona MD LAB BLOOD ORDERA BLES Final Result Performing Organization Address [facility]/ZIP Co de Phone Number [facility] [place] [address] * Magnesium (04/30/2025 8:39 PM INDUSTRIAL HYGIENE ENGINEER) Pathologist [facility] Magnesium 1.9 1.4 - 2.5 mg/dL Blood 04/30/2025 8:39 PM INDUSTRIAL HYGIENE ENGINEER 04/30/2025 8:58 PM INDUSTRIAL HYGIENE ENGINEER Kalia Carmona MD LAB BLOOD ORDERA BLES Final Result Performing Organization Address [facility] Co de Phone Number [facility] [place] [address] * (ABNORMAL) Basic metabolic panel (04/30/2025 8:39 PM INDUSTRIAL HYGIENE ENGINEER) [facility] Sodium 135 135 - 145 mmol/L Potassium, pl 3.6 3.3 - 4.9 mmol/L [facility] Chloride 101 97 - 110 mmol/L [facility] CO2 30 22 - 32 mmol/L [facility] Anion gap 4 2 - 15 mmol/L [facility] BUN 12 6 - 25 mg/dL [facility] Creatinine 0.67(L) 0.80 - 1.30 mg/dL [facility] Glucose 134 70 - 199 mg/dL [facility] Comment: Interpretive Data Fasting glucose >/= 126 mg/dl is diagnostic for diabetes. Fasting is defined as no caloric intake for at least 8 hours. Fasting glucose between 100 mg/dl to 125 mg/dl is diagnostic of prediabetes. In a patient with classic symptoms of hyperglycemia or hyperglycemic crisis, a random glucose >/= 200 mg/dl is diagnostic for diabetes. In the absence of unequivocal hyperglycemia, results should be confirmed by repeat testing. The classification and Diagnosis of Diabetes Diabetes Care 202; 46: S19-S40. Current interpretive data was last revised 2022. Calcium 9.8 8.5 - 10.3 mg/dL [facility] Blood 04/30/2025 8:39 PM INDUSTRIAL HYGIENE ENGINEER 04/30/2025 8:58 PM INDUSTRIAL HYGIENE ENGINEER us Kalia Carmona MD LAB BLOOD ORDERA BLES Final Result Performing Organization Address [facility]/DR. [facility] Co de Phone Number [facility] [place] [address] * (ABNORMAL) aPTT (04/30/2025 1:48 PM INDUSTRIAL HYGIENE ENGINEER) Pathologist [facility] aPTT 72(H) 26 - 38 sec Comment: Interpretive Data Heparin therapeutic range: 66.0 - 100.0 seconds. Range based on correlation with therapeutic heparin activity range of 0.3 - 0.7 Units/mL. Blood 04/30/2025 1:48 PM INDUSTRIAL HYGIENE ENGINEER 04/30/2025 2:04 PM INDUSTRIAL HYGIENE ENGINEER us Renetta Gore MD LAB BLOOD ORDERABLES Final Re sult Performing Organization Address [facility] Co de Phone Number [facility] [place] [address] * TRANSTHORACIC ECHO (TTE) COMPLETE W DOPPLER/CF WO CONTRAST (04/30/2025 1:12 PM INDUSTRIAL HYGIENE ENGINEER) [facility] EF Mod BP 43 % CONS SCIMAGE Anatomical Region Laterality Modality Ultrasound 04/30/2025 12:0 5 PM INDUSTRIAL HYGIENE ENGINEER Narrative 04/30/2025 1:41 PM INDUSTRIAL HYGIENE ENGINEER [facility] [place] [address] Transthoracic Echocardiographic Report Patient Name: PETER NEWMAN W : 1965 (59y 8m) Sex: M Study Date: 04/30/2025 12:05:43 PM Ht(Inch): 75 Wt(Lb): 195.11 BSA: 2.17 Mattress Inspector: Naa Burrows RDCS Location: [id number] Order Provider: KALIA CARMONA Heart Rate: 97 BMI: 24.38 BP: 93 / 75 Ref Provider: KALIA CARMONA PROCEDURES: Echocardiographic Report: Transthoracic complete echo with strain imaging, 2D, spectral and tissue Doppler, color flow Doppler, M-mode. INDICATIONS: Atrial fibrillation and Edema. CONCLUSIONS: 1. Normal left ventricular size based on volume index. Normal LV wall thickness. Mildly depressed left ventricular systolic function. The Ejection Fraction (Reyna's) is measured at 43 %. The average global longitudinal strain is abnormal. 2. Right ventricular dilatation. Mild right ventricular hypokinesis. 3. The estimated right ventricular systolic pressure is 25 mmHg. ATTESTATION: I have personally reviewed and interpreted this study without fellow or resident. DISCLAIMER: The study images and the final report will be retained in the patient chart by the Echo Laboratory for the legally required time period. This chart constitutes the legal record of any testing performed. FINDINGS: Left Ventricle: Normal left ventricular size based on volume index. Normal LV wall thickness. Mildly depressed left ventricular systolic function. The Ejection Fraction (Reyna's) is measured at 43 %. The average global longitudinal strain is abnormal. The LV global strain is: -15.2 %. Right Ventricle: Right ventricular dilatation. Mild right ventricular hypokinesis. Left Atrium: The left atrium is normal in size. Right Atrium: The right atrium is normal in size. Catheter tip noted in right atrium. Mitral Valve: Normal Mitral Valve Structure. Mild mitral valve regurgitation. Aortic Valve: Normal trileaflet aortic valve. No aortic regurgitation. No aortic valve stenosis. Aortic valve dimensionless index is 0.76. Tricuspid Valve: Normal Tricuspid valve structure. Mild tricuspid regurgitation. The estimated right ventricular systolic pressure is 25 mmHg. Pulmonic Valve: Normal pulmonic valve structure. No pulmonic regurgitation. No pulmonic valve stenosis present. Pericardium: Normal pericardium without pericardial effusion. Aorta: Normal aortic root size at sinuses of Valsalva. The ascending aorta is normal in size when indexed. IVC: The IVC was >2.1 cm and collapsibility <50% (est. RA pressure 15 mmHg). Effusions Left pleural effusion noted. Echodense mass vs atelectasis in left pleural effusion. PASP: Normal estimated pulmonary artery systolic pressure. Rhythm: Normal Sinus rhythm was seen during the study. MEASUREMENTS: 2D/MM Value Range Doppler Value Range LVIDd 2D 4.6 cm [ 4.2 - 5.8 ] AV Peak Bar 1.2 m/s [ 1.0 - 1.7 ] LVIDs 2D 3.6 cm [ 2.5 - 4.0 ] AV Peak PG 6 mmHg IVSd 2D 1.0 cm [ 0.6 - 1.0 ] AV Mean PG 3 mmHg LVPWd 2D 0.9 cm [ 0.6 - 1.0 ] AV VTI 21 cm LV Thickness Ratio 1.1 LVOT Peak Bar 0.9 m/s [ 0.7 - 1.1 ] LV FS 2D 20.63 % [ 25.00 - 43.00 ] LVOT Peak PG 3 mmHg LV Mass 2D 151.22 g LVOT Mean PG 2 mmHg LV Mass Index 2D 69.64 g/m2 LVOT VTI 16 cm RWT 0.39 LVOT Diam 2.0 cm EDV Mod BP 104 ml [ 62 - 150 ] RODERICK VTI 2.4 cm2 LV EDV Index 48 ml/m2 LVOT/AV VTI 0.76 - Dimensionless index (DVI) ESV Mod BP 59 ml [ 21 - 61 ] MV E Peak Bar 0.69 m/s [ 0.60 - 1.30 ] EF Mod BP 43 % [ 52 - 72 ] MV A Peak Bar 0.60 m/s [ 1.00 - 1.20 ] LV GLS -15.2 % [ -25.0 - -18.0 ] MV E/A 1.2 ratio [ 0.8 - 1.5 ] LA Length 4C 5.1 cm MV Decel [place] 510 LA Length 2C 5.6 cm MV Decel Time 135 msec [ 104 - 258 ] LA Volume BP 56 ml Med E` Bar 7.8 cm/sec [ 8.0 - 25.0 ] LA Volume Index 26 ml/m2 [ 16 - 34 ] Lat E` Bar 8.6 cm/sec [ 10.0 - 25.0 ] RV Base Dimen 2D 5.8 cm [ 2.5 - 4.2 ] Average E/E` 8 TAPSE 1.5 cm [ 1.7 - 5.0 ] RV S` 10.6 cm/sec RA Volume 59 ml TR Peak Bar 2.4 m/s [ 1.0 - 2.8 ] RA Volume Index 27 ml/m2 TR Peak PG 23 mmHg IVC Diam 2.1 cm PV Peak Bar 1.1 m/s [ 0.4 - 0.8 ] IVC Collapse 39.7 % PV Peak PG 5 mmHg AoR Diam 2D 3.6 cm [ 3.1 - 3.7 ] Ao Root Index 1.7 cm/m2 [ 1.0 - 2.0 ] Asc Ao Diam 2D 3.1 cm Asc Ao Index 1.4 cm/m2 Electronically Signed By: Rj Lorenzo MD 04/30/2025 1:41:33 PM INDUSTRIAL HYGIENE ENGINEER Procedure Note Rj Lorenzo MD - 04/30/2025 [facility] Cardiac [place] [address] Transthoracic Echocardiographic Report Patient Name: PETER NEWMAN W : 1965 (59y 8m) Sex: M Study Date: 04/30/2025 12:05:43 PM Ht(Inch): 75 Wt(Lb): 195.11 BSA: 2.17 Mattress Inspector: Naa Burrows RDCS Location: [id number] Order Provider:KALIA CARMONA Heart Rate: 97 BMI: 24.38 BP: 93 / 75 Ref Provider: KALIA CARMONA PROCEDURES: Echocardiographic Report: Transthoracic complete echo with strain imaging,2D, spectral and tissue Doppler, color flow Doppler, M-mode. INDICATIONS: Atrial fibrillation and Edema. CONCLUSIONS: 1. Normal left ventricular size based on volume index. Normal LV wallthickness. Mildly depressed left ventricular systolic function. The Ejection Fraction(Reyna's) is measured at 43 %. The average global longitudinal strain is abnormal. 2. Right ventricular dilatation. Mild right ventricular hypokinesis. 3. The estimated right ventricular systolic pressure is 25 mmHg. ATTESTATION: I have personally reviewed and interpreted this study without fellow orresident. DISCLAIMER: The study images and the final report will be retained in the patientchart by the Echo Laboratory for the legally required time period. This chart constitutesthe legal record of any testing performed. FINDINGS: Left Ventricle: Normal left ventricular size based on volume index. NormalLV wall thickness. Mildly depressed left ventricular systolic function. TheEjection Fraction (Reyna's) is measured at 43 %. The average global longitudinal strain isabnormal. The LV global strain is: -15.2 %. Right Ventricle: Right ventricular dilatation. Mild right ventricularhypokinesis. Left Atrium: The left atrium is normal in size. Right Atrium: The right atrium is normal in size. Catheter tip noted inright atrium. Mitral Valve: Normal Mitral Valve Structure. Mild mitral valveregurgitation. Aortic Valve: Normal trileaflet aortic valve. No aortic regurgitation. Noaortic valve stenosis. Aortic valve dimensionless index is 0.76. Tricuspid Valve: Normal Tricuspid valve structure. Mild tricuspidregurgitation. The estimated right ventricular systolic pressure is 25 mmHg. Pulmonic Valve: Normal pulmonic valve structure. No pulmonicregurgitation. No pulmonic valve stenosis present. Pericardium: Normal pericardium without pericardial effusion. Aorta: Normal aortic root size at sinuses of Valsalva. The ascending aortais normal in size when indexed. IVC: The IVC was >2.1 cm and collapsibility <50% (est. RA pressure 15mmHg). Effusions Left pleural effusion noted. Echodense mass vs atelectasis in left pleuraleffusion. PASP: Normal estimated pulmonary artery systolic pressure. Rhythm: Normal Sinus rhythm was seen during the study. MEASUREMENTS: 2D/MM Value Range DopplerValue Range LVIDd 2D 4.6 cm [ 4.2 - 5.8 ] AV Peak Vel1.2 m/s [ 1.0 - 1.7 ] LVIDs 2D 3.6 cm [ 2.5 - 4.0 ] AV Peak PG6 mmHg IVSd 2D 1.0 cm [ 0.6 - 1.0 ] AV Mean PG3 mmHg LVPWd 2D 0.9 cm [ 0.6 - 1.0 ] AV VTI21 cm LV Thickness Ratio 1.1 LVOT Peak Vel0.9 m/s [ 0.7 - 1.1 ] LV FS 2D 20.63 % [ 25.00 - 43.00 ] LVOT Peak PG3 mmHg LV Mass 2D 151.22 g LVOT Mean PG2 mmHg LV Mass Index 2D 69.64 g/m2 LVOT VTI16 cm RWT 0.39 LVOT Diam2.0 cm EDV Mod BP 104 ml [ 62 - 150 ] RODERICK VTI2.4 cm2 LV EDV Index 48 ml/m2 LVOT/AV VTI0.76 - Dimensionless index (DVI) ESV Mod BP 59 ml [ 21 - 61 ] MV E Peak Vel0.69 m/s [ 0.60 - 1.30 ] EF Mod BP 43 % [ 52 - 72 ] MV A Peak Vel0.60 m/s [ 1.00 - 1.20 ] LV GLS -15.2 % [ -25.0 - -18.0 ] MV E/A1.2 ratio [ 0.8 - 1.5 ] LA Length 4C 5.1 cm MV Decel [id number] LA Length 2C 5.6 cm MV Decel [id number] msec [ 104 - 258 ] LA Volume BP 56 ml Med E` Vel7.8 cm/sec [ 8.0 - 25.0 ] LA Volume Index 26 ml/m2 [ 16 - 34 ] Lat E` Vel8.6 cm/sec [ 10.0 - 25.0 ] RV Base Dimen 2D 5.8 cm [ 2.5 - 4.2 ] Average E/E`8 TAPSE 1.5 cm [ 1.7 - 5.0 ] RV S`10.6 cm/sec RA Volume 59 ml TR Peak Vel2.4 m/s [ 1.0 - 2.8 ] RA Volume Index 27 ml/m2 TR Peak PG23 mmHg IVC Diam 2.1 cm PV Peak Vel1.1 m/s [ 0.4 - 0.8 ] IVC Collapse 39.7 % PV Peak PG5 mmHg AoR Diam 2D 3.6 cm [ 3.1 - 3.7 ] Ao Root Index 1.7 cm/m2 [ 1.0 - 2.0 ] Asc Ao Diam 2D3.1 cm Asc Ao Index1.4 cm/m2 Electronically Signed By: Rj Lorenzo MD 04/30/2025 1:41:33 PM INDUSTRIAL HYGIENE ENGINEER Kalia Carmona MD CV ECHO PROCEDUR ES Final Result * Critical Result Callback Hematology (04/30/2025 11:19 AM INDUSTRIAL HYGIENE ENGINEER) Date Notified [id number] Time Notified 1227 [facility] TestName aPTT BENJAMIN [facility] Called/Read Back lamonte CARRION Credentials RN BENJAMIN CARRION Called By ra BENJAMIN BENNETT Blood 04/30/2025 11:1 9 AM INDUSTRIAL HYGIENE ENGINEER 04/30/2025 11:36 AM INDUSTRIAL HYGIENE ENGINEER Kalia Carmona MD LAB BLOOD ORDERA BLES Final Result [facility] [place] [address] * (ABNORMAL) aPTT (04/30/2025 11:19 AM INDUSTRIAL HYGIENE ENGINEER) aPTT >150(C) 28 - 38 sec Comment: No clot detected in sample - [id number] - 04/30/25, 12:20 PM Interpretive Data Heparin therapeutic range: 66.0 - 100.0 seconds. Range based on correlation with therapeutic heparin activity range of 0.3 - 0.7 Units/mL. Blood 04/30/2025 11:1 9 AM INDUSTRIAL HYGIENE ENGINEER 04/30/2025 11:36 AM INDUSTRIAL HYGIENE ENGINEER Kalia Carmona MD LAB BLOOD ORDERA BLES Final Result Performing Organization Address [facility] de Phone Number BENJAMIN [facility] Department [place] [address] * aPTT (04/29/2025 11:31 PM INDUSTRIAL HYGIENE ENGINEER) aPTT 38 26 - 38 sec Comment: Interpretive Data Heparin therapeutic range: 66.0 - 100.0 seconds. Range based on correlation with therapeutic heparin activity range of 0.3 - 0.7 Units/mL. Blood 04/29/2025 11:3 1 PM INDUSTRIAL HYGIENE ENGINEER 04/29/2025 11:45 PM INDUSTRIAL HYGIENE ENGINEER Kalia Carmona MD LAB BLOOD ORDERA BLES Final Result Performing Organization Address [facility] de Phone Number BENJAMIN [facility] [place] [address] * eGFR (04/29/2025 5:09 PM INDUSTRIAL HYGIENE ENGINEER) eGFR >90 >=60 mL/min/1. 73 m2 Comment: Interpretive Data Reference Interval Normal >/= 90 mL/min/1.73m2 Mildly decreased* 60 - 89 mL/min/1.73m2 Mildly to moderately decreased 45 - 59 mL/min/1.73m2 Moderately to severely decreased 30 - 44 mL/min/1.73m2 Severely decreased 15 - 29 mL/min/1.73m2 Kidney Failure < 15 mL/min/1.73m2 *Relative to young adult level Estimated glomerular filtration rate is determined by the 2020 CKD-EPI equation recommended by the National Kidney Foundation (A Unifying Approach to GFR Estimation: Recommendations of the NKF-ASK Task Force on Reassessing the Inclusion of Race in Diagnosing Kidney Disease, JOLLYSN 2020). The CKD-EPI equation should not be used for patients with unstable renal function and has not been validated in children and those over 70. Current interpretive data was last reviewed 2021. Blood 04/29/2025 5:09 PM INDUSTRIAL HYGIENE ENGINEER 04/29/2025 5:31 PM INDUSTRIAL HYGIENE ENGINEER Kalia Carmona MD LAB BLOOD ORDERA BLES Final Result [facility] [place] [address] * (ABNORMAL) Differential, auto (04/29/2025 5:09 PM INDUSTRIAL HYGIENE ENGINEER) Neutrophil abs 8.22(H) 1.50 - 6.50 K/cumm Imm gran abs 0.07 0.00 - 0.10 K/cumm [facility] Lymphocyte abs 1.93 0.80 - 3.30 K/cumm [facility] Monocyte abs 0.81(H) 0.20 - 0.80 K/cumm [facility] Eosinophil abs 0.16 0.00 - 0.50 K/cumm [facility] Basophil abs 0.05 0.00 - 0.10 K/cumm [facility] Neutrophil pct 73.2 % [facility] Comment: Interpretive Data Percent cell count reference ranges are not reported, since discordance with absolute values may lead to misinterpretation of CBC data. Current Interpretive Data was last revised on 2017. Imm gran pct 0.6 % [facility] Comment: Interpretive Data Percent cell count reference ranges are not reported, since discordance with absolute values may lead to misinterpretation of CBC data. Current Interpretive Data was last revised on 2017. Lymphocyte pct 17.2 % [facility] Comment: Interpretive Data Percent cell count reference ranges are not reported, since discordance with absolute values may lead to misinterpretation of CBC data. Current Interpretive Data was last revised on 2017. Monocyte pct 7.2 % [facility] Comment: Interpretive Data Percent cell count reference ranges are not reported, since discordance with absolute values may lead to misinterpretation of CBC data. Current Interpretive Data was last revised on 2017. Eosinophil pct 1.4 % [facility] Comment: Interpretive Data Percent cell count reference ranges are not reported, since discordance with absolute values may lead to misinterpretation of CBC data. Current Interpretive Data was last revised on 2017. Basophil pct 0.4 % [facility] Comment: Interpretive Data Percent cell count reference ranges are not reported, since discordance with absolute values may lead to misinterpretation of CBC data. Current Interpretive Data was last revised on 2017. Blood 04/29/2025 5:09 PM INDUSTRIAL HYGIENE ENGINEER 04/29/2025 5:30 PM INDUSTRIAL HYGIENE ENGINEER Kalia Carmona MD LAB BLOOD ORDERA BLES Final Result [facility] [place] [address] * (ABNORMAL) CBC with auto differential (04/29/2025 5:09 PM INDUSTRIAL HYGIENE ENGINEER) WBC 11.24(H) 3.80 - 9.90 K/cumm Hgb 13.1 13.0 - 17.5 g/dL [facility] Hct 44.3 38.9 - 50.3 % [facility] Plt 286 150 - 400 K/cumm [facility] MPV 9.2 9.1 - 12.3 fL [facility] RBC 5.85(H) 4.30 - 5.80 M/cumm [facility] MCV 75.7(L) 81.3 - 96.4 fL [facility] MCH 22.4(L) 27.1 - 33.3 pg [facility] MCHC 29.6(L) 32.3 - 35.7 g/dL [facility] RDW CV 17.4(H) 11.1 - 14.9 % [facility] RDW SD 45.3 35.7 - 48.1 fL [facility] NRBC abs 0.00 0.00 - 0.01 K/cumm [facility] Blood 04/29/2025 5:09 PM INDUSTRIAL HYGIENE ENGINEER 04/29/2025 5:30 PM INDUSTRIAL HYGIENE ENGINEER Kalia Carmona MD LAB BLOOD ORDERA BLES Final Result Performing Organization Address City/[facility] Co de Phone Number [facility] [place] [address] * (ABNORMAL) aPTT (04/29/2025 5:09 PM INDUSTRIAL HYGIENE ENGINEER) aPTT 43(H) 26 - 38 sec Comment: Interpretive Data Heparin therapeutic range: 66.0 - 100.0 seconds. Range based on correlation with therapeutic heparin activity range of 0.3 - 0.7 Units/mL. Blood 04/29/2025 5:09 PM INDUSTRIAL HYGIENE ENGINEER 04/29/2025 5:30 PM INDUSTRIAL HYGIENE ENGINEER Kalia Carmona MD LAB BLOOD ORDERA BLES Final Result Performing Organization Address [facility] [place] [address] * Phosphorus (04/29/2025 5:09 PM INDUSTRIAL HYGIENE ENGINEER) Phosphorus, pl 2.6 2.3 - 4.5 mg/dL Blood 04/29/2025 5:09 PM INDUSTRIAL HYGIENE ENGINEER 04/29/2025 5:31 PM INDUSTRIAL HYGIENE ENGINEER Kalia Carmona MD LAB BLOOD ORDERA BLES Final Result Performing Organization Address City/[facility] [place] [address] * Magnesium (04/29/2025 5:09 PM INDUSTRIAL HYGIENE ENGINEER) Magnesium 2.1 1.4 - 2.5 mg/dL Blood 04/29/2025 5:09 PM INDUSTRIAL HYGIENE ENGINEER 04/29/2025 5:31 PM INDUSTRIAL HYGIENE ENGINEER Kalia Carmona MD LAB BLOOD ORDERA BLES Final Result Performing Organization Address [facility] Co de Phone Number [facility] [place] [address] * (ABNORMAL) Hepatic function panel (04/29/2025 5:09 PM INDUSTRIAL HYGIENE ENGINEER) Bilirubin, total 0.3 0.1 - 1.2 mg/dL Bilirubin, direct <0.2 0.1 - 0.3 mg/dL [facility] Protein, pl 6.9 6.5 - 8.5 g/dL [facility] Albumin 2.8(L) 3.5 - 5.0 g/dL [facility] Alk phos 69 40 - 130 Units/L [facility] ALT 16 7 - 55 Units/L [facility] AST 30 10 - 50 Units/L [facility] Blood 04/29/2025 5:09 PM INDUSTRIAL HYGIENE ENGINEER 04/29/2025 5:31 PM INDUSTRIAL HYGIENE ENGINEER Kalia Carmona MD LAB BLOOD ORDERA BLES Final Result Performing Organization Address [facility] de Phone Number [facility] [place] [address] * (ABNORMAL) Basic metabolic panel (04/29/2025 5:09 PM INDUSTRIAL HYGIENE ENGINEER) Sodium 134(L) 135 - 145 mmol/L Potassium, pl 4.4 3.3 - 4.9 mmol/L [facility] Chloride 100 97 - 110 mmol/L [facility] CO2 30 22 - 32 mmol/L [facility] Anion gap 4 2 - 15 mmol/L [facility] BUN 15 6 - 25 mg/dL [facility] Creatinine 0.70(L) 0.80 - 1.30 mg/dL [facility] Glucose 122 70 - 199 mg/dL [facility] Comment: Interpretive Data Fasting glucose >/= 126 mg/dl is diagnostic for diabetes. Fasting is defined as no caloric intake for at least 8 hours. Fasting glucose between 100 mg/dl to 125 mg/dl is diagnostic of prediabetes. In a patient with classic symptoms of hyperglycemia or hyperglycemic crisis, a random glucose >/= 200 mg/dl is diagnostic for diabetes. In the absence of unequivocal hyperglycemia, results should be confirmed by repeat testing. The classification and Diagnosis of Diabetes Diabetes Care 2021; 46: S19-S40. Current interpretive data was last revised 2022. Calcium 10.0 8.5 - 10.3 mg/dL [facility] Blood 04/29/2025 5:09 PM INDUSTRIAL HYGIENE ENGINEER 04/29/2025 5:31 PM INDUSTRIAL HYGIENE ENGINEER Kalia Carmona MD LAB BLOOD ORDERA BLES Final Result [facility] [place] [address] * (ABNORMAL) Cell Differential, Body Fluid (04/29/2025 3:30 PM INDUSTRIAL HYGIENE ENGINEER) Total cells diffed 100 cells Comment: Interpretive Data Unless otherwise specified, the reference range and other method performance specifications have not been established for CSF/Body Fluid tests. The test results should be integrated into the clinical context for interpretation. Current interpretive data was last revised on 2019. Neutrophils, fld 13 % [facility] Lymphs, fld 64 % [facility] Monocyte, fld 1 % [facility] Tumor Cells Fld 3(H) 0 - 0 % [facility] Macrophages, fld 13 % [facility] Mesothelial cells, fld 6 % [facility] Comment, fld Reviewed by Hematopatholog ist/Hematologi , Cristiane Villegas M.D. on 04/30/2025 13:04:03 INDUSTRIAL HYGIENE ENGINEER. Abundant histiocytes and reactive mesothelial cells. Rare atypical epitheloid cells present. See pending cytology case [id number] for final diagnosis. [facility] Specimen type, fld Pleural fluid [facility] Fluid 04/29/2025 3:30 PM INDUSTRIAL HYGIENE ENGINEER 04/29/2025 10:47 PM INDUSTRIAL HYGIENE ENGINEER Kalia Carmona MD LAB BODY FLUIDS AND STOOLS ORDERABLES Final Result Performing Organization Address [facility] Co de Phone Number [facility] [place] [address] * (ABNORMAL) Cell count w/rflx diff, body fluid (04/29/2025 3:30 PM INDUSTRIAL HYGIENE ENGINEER) Specimen type, fld Pleural Color, fld Yellow [facility] Clarity, fld Cloudy(A) Clear [facility] Nucleated cells, fld 3,718 /cumm [facility] Comment: Interpretive Data Unless otherwise specified, the reference range and other method performance specifications have not been established for CSF/Body Fluid tests. The test results should be integrated into the clinical context for interpretation. Current interpretive data was last revised on 2019. RBC, fld 1,791 /cumm [facility] Fluid 04/29/2025 3:30 PM INDUSTRIAL HYGIENE ENGINEER 04/29/2025 3:38 PM INDUSTRIAL HYGIENE ENGINEER Kalia Carmona MD LAB BODY FLUIDS AND STOOLS ORDERABLES Final Result Performing Organization Address [facility] de Phone Number [facility] Department [place] [address] * Senior staff review (04/29/2025 3:30 PM INDUSTRIAL HYGIENE ENGINEER) Senior Staff Review Specimen Pleural Senior Staff Review Review Done [facility] Comment:Refer to Patholog ist comment. Fluid 04/29/2025 3:30 PM INDUSTRIAL HYGIENE ENGINEER 04/29/2025 10:47 PM INDUSTRIAL HYGIENE ENGINEER Narrative [facility] - 04/30/2025 1:06 PM INDUSTRIAL HYGIENE ENGINEER Pathology review Kalia Carmona MD LAB BLOOD ORDERA BLES Final Result Performing Organization Address [facility] Co de Phone Number BENJAMIN [facility] [place] [address] * Cholesterol, Pleural Fluid (04/29/2025 3:30 PM INDUSTRIAL HYGIENE ENGINEER) Body site, fld Pleural fluid, left Cholesterol, fld 29 mg/dL [facility] Comment: The above specimen type is not cleared for use in this method by the FDA. Analytical characteristics have been validated by the performing laboratory. No reference range established - see interpretive comments. Interpretive Data Pleural - As supportive evidence to Light's criteria, pleural fluid cholesterol may provide additional evidence in differentiating exudates (>45 mg/dL) from transudates (< 45 mg/dL). In addition, Cholesterol <200 mg/dL is indicative of chylothorax while cholesterol >200 mg/dL rules out chylothorax. Reference: [employer] Test directory, Body Fluid Reference Intervals and/or Interpretative Information. [email or web address] Current Interpretive Data was last revised 2019. Fluid 04/29/2025 3:30 PM INDUSTRIAL HYGIENE ENGINEER 04/29/2025 3:38 PM INDUSTRIAL HYGIENE ENGINEER Kalia Carmona MD LAB BODY FLUIDS AND STOOLS ORDERABLES Final Result Performing Organization Address [facility] de Phone Number BENJAMIN [facility] [place] [address] * Protein, body fluid (04/29/2025 3:30 PM INDUSTRIAL HYGIENE ENGINEER) Specimen type, fld Pleural Protein, fld 2.4 g/dL [facility] Comment: The above specimen type is not cleared for use in this method by the FDA. Analytical characteristics have been validated by the performing laboratory. No reference range established - see interpretive comments. Interpretive Data Pleural and Pericardial Fluids - Ratio of fluid to serum protein > or = 0.5 is indicative of exudate and < 0.5 of transudate. Peritoneal - Protein > or = 3.0 g/dL is indicative of exudates and < 3.0 g/dL of transudates. Reference: Wilbert Textbook of Clinical Chemistry and Molecular Diagnostics, Sixth Edition. Elsevier Press. 2018. Chapter 43, Body Fluids, p. 925 Current Interpretive Data was last revised 2019. Fluid 04/29/2025 3:30 PM INDUSTRIAL HYGIENE ENGINEER 04/29/2025 3:38 PM INDUSTRIAL HYGIENE ENGINEER Kalia Carmona MD LAB BODY FLUIDS AND STOOLS ORDERABLES Final Result Performing Organization Address [facility] Co de Phone Number [facility] [place] [address] * Lactate dehydrogenase, body fluid (04/29/2025 3:30 PM INDUSTRIAL HYGIENE ENGINEER) Specimen type, fld Pleural LD, fld 170 Units/L [facility] Comment: The above specimen type is not cleared for use in this method by the FDA. Analytical characteristics have been validated by the performing laboratory. No reference range established - see interpretive comments. Interpretive Data Ratio of fluid to serum LD > or = 0.6 is indicative of exudate and < 0.6 of transudate. References: The Biochemistry of Body Fluids. Association of Clinical Biochemists in [place]. March 2009; pp 1-36. Wilbert Textbook of Clinical Chemistry and Molecular Diagnostics, Sixth Edition. Elsevier Press. 2018. Chapter 43, Body Fluids, p. 925 Current Interpretive Data was last revised 2019. Fluid 04/29/2025 3:30 PM INDUSTRIAL HYGIENE ENGINEER 04/29/2025 3:38 PM INDUSTRIAL HYGIENE ENGINEER Kalia Carmona MD LAB BODY FLUIDS AND STOOLS ORDERABLES Final Result Performing Organization Address [facility] Co de Phone Number [facility] Department [place] [address] * Glucose, body fluid (04/29/2025 3:30 PM INDUSTRIAL HYGIENE ENGINEER) Specimen type, fld Pleural Glucose, fld 132 mg/dL [facility] C[facility] Comment: The above specimen type is not cleared for use in this method by the FDA. Analytical characteristics have been validated by the performing laboratory. No reference range established - see interpretive comments. Interpretive Data Pleural - Glucose < 60 mg/dL is indicative of complicated parapneumonic effusions. Peritoneal - normally equivalent to plasma glucose. Will be less than concurrent plasma value in peritoneal bacterial infections. Pericardial - Fluid to serum glucose ratio < 0.3 is indicative of bacterial infection. Pancreatic cyst fluid - glucose concentrations have been shown to be a useful aid for distinguishing mucinous from non-mucinous cysts. Low glucose concentrations in a pancreatic cyst fluid (< 40-50 mg/dL) is suggestive of a mucinous cyst. However, body fluid glucose concentrations may be decreased due to increased cellular metabolism and should be interpreted in the context of blood glucose concentrations and in conjunction with other laboratory and clinical findings. References: Wilbert Textbook of Clinical Chemistry and Molecular Diagnostics, Sixth Edition. Elsevier Press. 2018. Chapter 43, Body Fluids, p. 925 Pleural effusions: Evaluation and Management. Udng Clin J Med 2005;72:854-72. [employer] Test directory, Body Fluid Reference Intervals and/or Interpretative Information. [email or web address] Maximiliano BARGER et al. Pancreatic cyst fluid glucose: rapid, inexpensive, and accurate diagnosis of mucinous pancreatic cysts. Surgery 2018;163:600-5. Sd WILDER et al. Differential diagnosis of pancreatic cysts: A prospective study on the role of intra-cystic glucose concentration. Digestive Liver Dis 2020;52:1026-32. Current Interpretive Data was last revised 2021. Fluid 04/29/2025 3:30 PM INDUSTRIAL HYGIENE ENGINEER 04/29/2025 3:38 PM INDUSTRIAL HYGIENE ENGINEER Narrative BENJAMIN BENNETT - 04/29/2025 5:17 PM INDUSTRIAL HYGIENE ENGINEER Body Fluid Type->Pleural Kalia Carmona MD LAB BODY FLUIDS AND STOOLS ORDERABLES Final Result BENJAMIN CARRION [facility] [place] [address] * RI THORACENTESIS NEEDLE/CATH PLEURA W/IMAGING (04/29/2025 2:51 PM INDUSTRIAL HYGIENE ENGINEER) Anatomical Region Laterality Modality Other Narrative 04/29/2025 2:51 PM INDUSTRIAL HYGIENE ENGINEER Miles Shea MD 04/29/2025 4:26 PM Thoracentesis Date/Time: 04/29/2025 2:51 PM Performed by: Sea Hankins MD Authorized by: Miles Shea MD Willard Protocol: RN Notified of Procedure: yes Informed consent: Risks, benefits, alternatives discussed and patient/airport representative/guardian agrees and accepts Patient's stated name/ matches armband: Yes Allergies confirmed: yes Consent form signed, dated, timed; matches correct patient, intended procedure and site: Yes Imaging: Pertinent imaging reviewed, correctly oriented and match to patient identifiers Lab/Diag test results: Pertinent lab/diag tests reviewed and match to patient identifiers Supplies, devices and special equipment are available: yes Site/side marked: yes Immediately prior to the procedure a time out was called: a verbal verification by the procedure participants confirmed correct patient identity, correct site/side marked and visible (if applicable); agreement on procedure to be done; and correct patient positioning Procedure purpose: Diagnostic and therapeutic Indications: pleural effusion Anesthesia (see MAR for exact dosages): Anesthesia method: Local infiltration Local anesthetic: Lidocaine 1% Patient preparation: Gloves, mask and partial body drape Skin preparation: Skin prepped with 2% chlorhexidine Patient position: Sitting Location: Left posterior Done with ultrasound: yes Ultrasound guidance: Pre-procedure diagnostic Needle gauge: 18 gauge Number of attempts: 1 Drainage amount (ml): 1400 Drainage characteristics: Serous (Xochitl, clear) Patient tolerance: Patient tolerated the procedure well with no immediate complications Post Procedure Debrief: All guidewires, needles, sponges or other items are accounted for: yes Any special post procedure monitoring, testing or other considerations: n/a All specimens identified, labeled and matched to patient identification: yes Responsible alliance party for transporting specimen(s) to lab determined: yes us Miles Shea MD PFT ORDERABLES Final Res ult * Cytology (04/29/2025 12:32 PM INDUSTRIAL HYGIENE ENGINEER) Fluid (Pleura (Cytology)) 04/29/2025 12:32 PM INDUSTRIAL HYGIENE ENGINEER 04/29/2025 6:45 PM INDUSTRIAL HYGIENE ENGINEER Narrative PATHOLOGY [facility] - 05/02/2025 11:29 AM INDUSTRIAL HYGIENE ENGINEER EPIC results best viewed via link to PDF [facility] Laboratory [place] [address] Note to Patients: This report may contain a detailed description of human tissue sent by a health care provider to the laboratory for pathologic evaluation. The content of this report is essential for diagnosis and may provide important critical findings. This information may be unfamiliar to patients to review without a medical professional present. It is advised that the patient review this report in the presence of a health care provider who can answer questions and explain the details. CYTOPATHOLOGY REPORT FINAL Patient Name: PETER NEWMAN Gender: M : 1965 (Age: 59) Address: [address] [place] [address] Hospital #: [id number] Taken:04/29/2025 Received:04/29/2025 Reported: 05/02/2025 Patient Type: [facility] Inpatient Service: Cardiology Location: [facility] ED Physician(s): MD Kalia Elizalde MD Olusegun A. Coker, M.D. FINAL DIAGNOSIS A. Pleural fluid: - Positive for malignancy, consistent with involvement by patient's known squamous cell carcinoma (see comment) Comments The cytologic preparations and cell block show occasional singly-dispersed malignant cell with pleomorphic nuclei, variably prominent nucleoli, and ample cytoplasm. The patient's history of metastatic squamous cell carcinoma is noted. An immunohistochemical stain (single antibody procedure with appropriate control) for p40 is positive in the malignant cells. The findings are consistent with involvement by the patient's known squamous cell carcinoma. pfm/05/01/2025 14:07 By this signature, I attest that the above diagnosis is based upon my personal examination of the slides(and/or other material indicated in the diagnosis). Murphy Ashraf MD Report Electronically Reviewed and Signed Out By Murphy Ashraf MD 05/02/2025 11:29:43 Abdulaziz Stanley [facility]) Gross Description A. Pleural fluid, side not specified: 60 ml of yellow fluid - 1 Pap stained ThinPrep, 1 Pap stained cytospin, 1 Diff- Quik stained cytospin, and cell block. (pc) Clinical Diagnosis and History The patient is a 59-year-old man with history of metastatic squamous cell carcinoma of the lung who presents with a pleural effusion. REPORT IMAGES AND SCANNED DOCUMENTS, IF INCLUDED, ONLY VIEWABLE IN PDF VERSION OF REPORT The performance characteristics of some immunohistochemical stains, in-situ hybridization and fluorescence in-situ hybridization tests and immunophenotyping by flow cytometry cited in this report (if any) were determined by the Surgical Pathology and Flow Cytometry Departments at [facility] as part of an ongoing lead quality technician program and in compliance with federally mandated regulations drawn from the Clinical Laboratory Improvement Act of 1988 (CLIA '88). Some of these tests rely on the use of analyte specific reagents and are subject to specific labeling requirements by the US Food and Drug Administration. Such diagnostic tests may only be performed in a facility that is certified by the Department of Health and Human Services as a high complexity laboratory under CLIA '88. The FDA has determined that such clearance or approval is not necessary. This test is used for clinical purposes. It should not be regarded as investigational or for research. Nevertheless, federal rules concerning the medical use of analyte specific reagents require that the following disclaimer be attached to the report: This test was developed and its performance characteristics determined by the Surgical Pathology and Flow Cytometry Departments of [facility]. It has not been cleared or approved by the U. S. Food and Drug Administration. Kalia Carmona MD LAB CYTOLOGY ORD ERABLES Final Result PATHOLOGY [facility] 3rd Floor [place], [place] [phone] * POCT glucose (04/29/2025 12:04 PM INDUSTRIAL HYGIENE ENGINEER) Glucose, POC 106 70 - 199 mg/dL Blood 04/29/2025 12:0 4 PM INDUSTRIAL HYGIENE ENGINEER 04/29/2025 12:04 PM INDUSTRIAL HYGIENE ENGINEER Kalia Carmona MD LAB POCT ORDERAB LES - DEVICE Final Result Performing Organization Address [facility]/ZIP Co de Phone Number BENJAMIN BENNETT [facility] [place] [address] * Blood culture Blood (04/29/2025 10:14 AM INDUSTRIAL HYGIENE ENGINEER) Report Final Report: No growth Blood 04/29/2025 10:1 4 AM INDUSTRIAL HYGIENE ENGINEER 04/29/2025 10:34 AM INDUSTRIAL HYGIENE ENGINEER Narrative BENJAMIN [facility] - 05/03/2025 12:00 PM INDUSTRIAL HYGIENE ENGINEER Specimen received in media. Culture results may be compromised. If clinically indicated, submit a new specimen. From a different site than #1. Collection->Peripheral 1. Blood cultures are incubated for 4 days on a continuously monitored blood culture system. The first report of a negative culture is issued within 24 hours of receipt of the specimen in the laboratory. 2. Positive culture results are reported as soon as they are detected. 3. The most important factor for detection of microbes in the setting of bloodstream infection is the volume of blood submitted for culture. Failure to collect an optimal blood volume can result in false negative blood cultures. 4. For pediatric patients, the recommended blood volume to collect follows a weight based strategy. See the electronic test catalog for collection instructions. 5. For positive blood cultures, a rapid molecular test may be performed for organism identification using the nanette ePlex blood culture identification panel for gram positive (BCID-GP) and gram negative (BCID-GN) organisms. This nucleic acid amplification test detects microbial DNA in positive blood culture broth. This assay has been cleared by the [place] Food and Drug Administration and its performance characteristics have been verified by the [facility]. For questions about this culture, contact the Microbiology Laboratory at [phone]. Interpretive data was last revised on 24. Kalia Carmona MD LAB MICROBIOLOGY - GENERAL ORDERABLES Final Result Performing Organization Address City/[facility]/ZIP Co de Phone Number BENJAMIN CARRION [facility] Department [place] [address] * Blood culture Blood (04/29/2025 10:14 AM INDUSTRIAL HYGIENE ENGINEER) Report Final Report: No growth Blood 04/29/2025 10:1 4 AM INDUSTRIAL HYGIENE ENGINEER 04/29/2025 10:34 AM INDUSTRIAL HYGIENE ENGINEER Narrative BENJAMIN BENNETT - 05/03/2025 12:00 PM INDUSTRIAL HYGIENE ENGINEER Collection->Peripheral bottle 1. Blood cultures are incubated for 4 days on a continuously monitored blood culture system. The first report of a negative culture is issued within 24 hours of receipt of the specimen in the laboratory. 2. Positive culture results are reported as soon as they are detected. 3. The most important factor for detection of microbes in the setting of bloodstream infection is the volume of blood submitted for culture. Failure to collect an optimal blood volume can result in false negative blood cultures. 4. For pediatric patients, the recommended blood volume to collect follows a weight based strategy. See the electronic test catalog for collection instructions. 5. For positive blood cultures, a rapid molecular test may be performed for organism identification using the [employer]ette ePlex blood culture identification panel for gram positive (BCID-GP) and gram negative (BCID-GN) organisms. This nucleic acid amplification test detects microbial DNA in positive blood culture broth. This assay has been cleared by the [place] Food and Drug Administration and its performance characteristics have been verified by the [facility]. For questions about this culture, contact the Microbiology Laboratory at [phone]. Interpretive data was last revised on 24. Kalia Carmona MD LAB MICROBIOLOGY - GENERAL ORDERABLES Final Result [facility]JAMIN CARRION [facility] Department [place] [address] * (ABNORMAL) Vancomycin level trough Please obtain prior to 3rd Vancomycin dose on Sunday 04/29 @ 1115, before the 1145 dose (04/29/2025 10:14 AM INDUSTRIAL HYGIENE ENGINEER) Vancomycin trough 8.1(L) 10.0 - 20.0 mcg/mL Blood 04/29/2025 10:1 4 AM INDUSTRIAL HYGIENE ENGINEER 04/29/2025 10:27 AM INDUSTRIAL HYGIENE ENGINEER Narrative [facility] - 04/29/2025 10:59 AM INDUSTRIAL HYGIENE ENGINEER Please obtain prior to 3rd Vancomycin dose on Sunday 04/29 @ 1115, before the 1145 dose Kalia Carmona MD LAB BLOOD ORDERA BLES Final Result Performing Organization Address [facility] Co de Phone Number [facility] [place] [address] * Infection Prevention Last auris PCR, surveillance Axilla/Groin (04/29/2025 9:56 AM INDUSTRIAL HYGIENE ENGINEER) [facility] Last auris DNA Not Detected Not Detected [facility] Comment: Interpretive Data Testing performed by [facility]ious Disease [facility] using the Sadie nanette 6800 Last auris assay. This assay detects DNA from Last auris using Real-Time PCR. This assay is laboratory developed and is not cleared by the [facility] Food and Drug Administration. The performance characteristics have been verified by the [facility]. Axilla/Groin 04/29/2025 9:56 AM INDUSTRIAL HYGIENE ENGINEER 04/29/2025 10:40 AM INDUSTRIAL HYGIENE ENGINEER Aiden Leija MD LAB MICROBIOLOGY - GENERAL ORDER JESSICA Final Result Performing Organization Address [facility] Co de Phone Number [facility] [place] [address] [facility] * Aerobic and anaerobic culture and gram stain Pleural fluid Lung (04/29/2025 9:56 AM INDUSTRIAL HYGIENE ENGINEER) [facility] Direct Specimen Exam Stain: Cytospin Gram stain shows: Few polymorphonuclear leukocytes seen. Other cellular material present. No organisms seen. Report Final Report: No growth [facility] Pleural fluid (Lung) 04/29/2025 9:56 AM INDUSTRIAL HYGIENE ENGINEER 04/29/2025 4:50 PM INDUSTRIAL HYGIENE ENGINEER Narrative [facility] - 05/05/2025 1:31 PM INDUSTRIAL HYGIENE ENGINEER Testing performed by [facility] ([phone]) Specimens submitted from normally sterile body sites will have all bacterial morphotypes identified. Specimens that contain grossly mixed halle and/or are from body sites that are not normally sterile will be examined for Staphylococcus aureus, Pseudomonas aeruginosa, beta-hemolytic strep, vancomycin-resistant Enterococcus, Bacteroides, Parabacteroides, Clostridium perfringens and fungus. If any of these are isolated, the organism will be reported. Current interpretive data was last revised on 2019. Kalia Carmona MD LAB MICROBIOLOGY - GENERAL ORDERABLES Final Result [facility] [place] [address] * Protein, body fluid (04/29/2025 9:56 AM INDUSTRIAL HYGIENE ENGINEER) Specimen type, fld Pleural Body site, fld Pleural fluid, left [facility] Protein, fld 6.8 g/dL [facility] Comment: The above specimen type is not cleared for use in this method by the FDA. Analytical characteristics have been validated by the performing laboratory. No reference range established - see interpretive comments. Interpretive Data Pleural and Pericardial Fluids - Ratio of fluid to serum protein > or = 0.5 is indicative of exudate and < 0.5 of transudate. Peritoneal - Protein > or = 3.0 g/dL is indicative of exudates and < 3.0 g/dL of transudates. Reference: Wilbert Textbook of Clinical Chemistry and Molecular Diagnostics, Sixth Edition. Elsevier Press. 2018. Chapter 43, Body Fluids, p. 925 Current Interpretive Data was last revised 2019. Fluid 04/29/2025 9:56 AM INDUSTRIAL HYGIENE ENGINEER 04/29/2025 10:24 AM INDUSTRIAL HYGIENE ENGINEER Kalia Carmona MD LAB BODY FLUIDS AND STOOLS ORDERABLES Final Result Performing Organization Address [facility] Phone Number [facility] [place] [address] * Lactate dehydrogenase, body fluid (04/29/2025 9:56 AM INDUSTRIAL HYGIENE ENGINEER) Specimen type, fld Pleural LD, fld 395 Units/L [facility] Comment: The above specimen type is not cleared for use in this method by the FDA. Analytical characteristics have been validated by the performing laboratory. No reference range established - see interpretive comments. Interpretive Data Ratio of fluid to serum LD > or = 0.6 is indicative of exudate and < 0.6 of transudate. References: The Biochemistry of Body Fluids. Association of Clinical Biochemists in [place]. March 2009; pp 1-36. Wilbert Textbook of Clinical Chemistry and Molecular Diagnostics, Sixth Edition. Elsevier Press. 2018. Chapter 43, Body Fluids, p. 921 Current Interpretive Data was last revised 2019. Fluid 04/29/2025 9:56 AM INDUSTRIAL HYGIENE ENGINEER 04/29/2025 10:24 AM INDUSTRIAL HYGIENE ENGINEER Kalia Carmona MD LAB BODY FLUIDS AND STOOLS ORDERABLES Final Result Performing Organization Address [facility] Phone Number [facility] [place] [address] * aPTT (04/29/2025 8:29 AM INDUSTRIAL HYGIENE ENGINEER) aPTT 36 26 - 38 sec Comment: Interpretive Data Heparin therapeutic range: 66.0 - 100.0 seconds. Range based on correlation with therapeutic heparin activity range of 0.3 - 0.7 Units/mL. Blood 04/29/2025 8:29 AM INDUSTRIAL HYGIENE ENGINEER 04/29/2025 8:43 AM INDUSTRIAL HYGIENE ENGINEER Kalia Carmona MD LAB BLOOD ORDERA BLES Final Result Performing Organization Address [facility] de Phone Number CERNER [facility] Department [place] [address] * POCT glucose (04/29/2025 6:41 AM INDUSTRIAL HYGIENE ENGINEER) Pathologist [facility] Glucose, POC 104 70 - 199 mg/dL Blood 04/29/2025 6:41 AM INDUSTRIAL HYGIENE ENGINEER 04/29/2025 6:41 AM INDUSTRIAL HYGIENE ENGINEER Kalia Carmona MD LAB POCT ORDERAB LES - DEVICE Final Result Performing Organization Address [facility]/ZIP Co de Phone Number [facility] [place] [address] * eGFR (04/28/2025 11:42 PM INDUSTRIAL HYGIENE ENGINEER) [facility] eGFR >90 >=60 mL/min/1. 73 m2 Comment: Interpretive Data Reference Interval Normal >/= 90 mL/min/1.73m2 Mildly decreased* 60 - 89 mL/min/1.73m2 Mildly to moderately decreased 45 - 59 mL/min/1.73m2 Moderately to severely decreased 30 - 44 mL/min/1.73m2 Severely decreased 15 - 29 mL/min/1.73m2 Kidney Failure < 15 mL/min/1.73m2 *Relative to young adult level Estimated glomerular filtration rate is determined by the 2020 CKD-EPI equation recommended by the National Kidney Foundation (A Unifying Approach to GFR Estimation: Recommendations of the NKF-ASK Task Force on Reassessing the Inclusion of Race in Diagnosing Kidney Disease, JASN 2020). The CKD-EPI equation should not be used for patients with unstable renal function and has not been validated in children and those over 70. Current interpretive data was last reviewed 2021. Blood 04/28/2025 11:4 2 PM INDUSTRIAL HYGIENE ENGINEER 04/29/2025 12:04 AM INDUSTRIAL HYGIENE ENGINEER Kalia Carmona MD LAB BLOOD ORDERA BLES Final Result CERNER [facility] [place] [address] * (ABNORMAL) Differential, auto (04/28/2025 11:42 PM INDUSTRIAL HYGIENE ENGINEER) Neutrophil abs 10.48(H) 1.50 - 6.50 K/cumm Imm gran abs 0.08 0.00 - 0.10 K/cumm [facility] Lymphocyte abs 2.04 0.80 - 3.30 K/cumm [facility] Monocyte abs 0.90(H) 0.20 - 0.80 K/cumm [facility] Eosinophil abs 0.23 0.00 - 0.50 K[facility]umm [facility] Basophil abs 0.07 0.00 - 0.10 K/cumm [facility] Neutrophil pct 75.9 % [facility] Comment: Interpretive Data Percent cell count reference ranges are not reported, since discordance with absolute values may lead to misinterpretation of CBC data. Current Interpretive Data was last revised on 2017. Imm gran pct 0.6 % [facility] Comment: Interpretive Data Percent cell count reference ranges are not reported, since discordance with absolute values may lead to misinterpretation of CBC data. Current Interpretive Data was last revised on 2017. Lymphocyte pct 14.8 % [facility] Comment: Interpretive Data Percent cell count reference ranges are not reported, since discordance with absolute values may lead to misinterpretation of CBC data. Current Interpretive Data was last revised on 2017. Monocyte pct 6.5 % [facility] Comment: Interpretive Data Percent cell count reference ranges are not reported, since discordance with absolute values may lead to misinterpretation of CBC data. Current Interpretive Data was last revised on 2017. Eosinophil pct 1.7 % [facility] Comment: Interpretive Data Percent cell count reference ranges are not reported, since discordance with absolute values may lead to misinterpretation of CBC data. Current Interpretive Data was last revised on 2017. Basophil pct 0.5 % [facility] Comment: Interpretive Data Percent cell count reference ranges are not reported, since discordance with absolute values may lead to misinterpretation of CBC data. Current Interpretive Data was last revised on 2017. Blood 04/28/2025 11:4 2 PM INDUSTRIAL HYGIENE ENGINEER 04/29/2025 12:03 AM INDUSTRIAL HYGIENE ENGINEER Kalia Carmona MD LAB BLOOD ORDERA BLES Final Result Performing Organization Address [facility] de Phone Number [facility] [place] [address] * Infection Prevention MRSA Only (Staphylococcus aureus) PCR Nasal (04/28/2025 11:42 PM INDUSTRIAL HYGIENE ENGINEER) [facility] PCR Scrn, Methicillin resistant Staphylococcus aureus (MRSA) Not Detected Not Detected [facility] Comment: Testing performed using Nucleic Acid Amplification with the ActiveEon Xpert MRSA NxG Assay. This assay detects target DNA from mecA, mecC and the SCCmec insertion site of Staphylococcus aureus using Real-Time PCR and has been cleared by the FDA. Performance characteristics have been verified by the [facility]. Nasal 04/28/2025 11:4 2 PM INDUSTRIAL HYGIENE ENGINEER 04/28/2025 11:58 PM INDUSTRIAL HYGIENE ENGINEER Kalia Carmona MD LAB MICROBIOLOGY - GENERAL ORDERABLES Final Result Performing Organization Address [facility] de Phone Number [facility] [place] [address] [facility] * (ABNORMAL) CBC with auto differential (04/28/2025 11:42 PM INDUSTRIAL HYGIENE ENGINEER) [facility] WBC 13.80(H) 3.80 - 9.90 K/cumm Hgb 13.9 13.0 - 17.5 g/dL [facility] Hct 46.7 38.9 - 50.3 % [facility] Plt 364 150 - 400 K/cumm [facility] MPV 9.1 9.1 - 12.3 fL [facility] RBC 6.17(H) 4.30 - 5.80 M/cumm [facility] MCV 75.7(L) 81.3 - 96.4 fL [facility] MCH 22.5(L) 27.1 - 33.3 pg [facility] MCHC 29.8(L) 32.3 - 35.7 g/dL [facility] RDW CV 17.7(H) 11.1 - 14.9 % [facility] RDW SD 45.1 35.7 - 48.1 fL [facility] NRBC abs 0.00 0.00 - 0.01 K/cumm [facility] Blood 04/28/2025 11:4 2 PM INDUSTRIAL HYGIENE ENGINEER 04/29/2025 12:03 AM INDUSTRIAL HYGIENE ENGINEER Kalia Carmona MD LAB BLOOD ORDERA BLES Final Result Performing Organization Address [facility] Co de Phone Number [facility] [place] [address] * aPTT (04/28/2025 11:42 PM INDUSTRIAL HYGIENE ENGINEER) aPTT 35 26 - 38 sec Comment: Interpretive Data Heparin therapeutic range: 66.0 - 100.0 seconds. Range based on correlation with therapeutic heparin activity range of 0.3 - 0.7 Units/mL. Blood 04/28/2025 11:4 2 PM INDUSTRIAL HYGIENE ENGINEER 04/29/2025 12:01 AM INDUSTRIAL HYGIENE ENGINEER Vane Salcedo MD LAB BLOOD ORDERABLES Lena l Result [facility] [place] [address] * Phosphorus (04/28/2025 11:42 PM INDUSTRIAL HYGIENE ENGINEER) Phosphorus, pl 3.2 2.3 - 4.5 mg/dL Blood 04/28/2025 11:4 2 PM INDUSTRIAL HYGIENE ENGINEER 04/29/2025 12:04 AM INDUSTRIAL HYGIENE ENGINEER Kalia Carmona MD LAB BLOOD ORDERA BLES Final Result Performing Organization Address City/[facility]/ZIP Co de Phone Number [facility] [place] [address] * Magnesium (04/28/2025 11:42 PM INDUSTRIAL HYGIENE ENGINEER) [facility] Magnesium 2.1 1.4 - 2.5 mg/dL Blood 04/28/2025 11:4 2 PM INDUSTRIAL HYGIENE ENGINEER 04/29/2025 12:04 AM INDUSTRIAL HYGIENE ENGINEER Kalia Carmona MD LAB BLOOD ORDERA BLES Final Result Performing Organization Address [facility] de Phone Number [facility] [place] [address] * (ABNORMAL) Basic metabolic panel (04/28/2025 11:42 PM INDUSTRIAL HYGIENE ENGINEER) [facility] Sodium 134(L) 135 - 145 mmol/L Potassium, pl 4.6 3.3 - 4.9 mmol/L [facility] Chloride 94(L) 97 - 110 mmol/L [facility] CO2 29 22 - 32 mmol/L [facility] Anion gap 11 2 - 15 mmol/L [facility] BUN 12 6 - 25 mg/dL [facility] Creatinine 0.71(L) 0.80 - 1.30 mg/dL [facility] Glucose 115 70 - 199 mg/dL [facility] Comment: Interpretive Data Fasting glucose >/= 126 mg/dl is diagnostic for diabetes. Fasting is defined as no caloric intake for at least 8 hours. Fasting glucose between 100 mg/dl to 125 mg/dl is diagnostic of prediabetes. In a patient with classic symptoms of hyperglycemia or hyperglycemic crisis, a random glucose >/= 200 mg/dl is diagnostic for diabetes. In the absence of unequivocal hyperglycemia, results should be confirmed by repeat testing. The classification and Diagnosis of Diabetes Diabetes Care 2021; 46: S19-S40. Current interpretive data was last revised 2022. Calcium 10.0 8.5 - 10.3 mg/dL [facility] Blood 04/28/2025 11:4 2 PM INDUSTRIAL HYGIENE ENGINEER 04/29/2025 12:04 AM INDUSTRIAL HYGIENE ENGINEER Kalia Carmona MD LAB BLOOD ORDERA BLES Final Result Performing Organization Address [facility] Co de Phone Number [facility] [place] [address] * POCT glucose (04/28/2025 8:01 PM INDUSTRIAL HYGIENE ENGINEER) Glucose, POC 156 70 - 199 mg/dL Blood 04/28/2025 8:01 PM INDUSTRIAL HYGIENE ENGINEER 04/28/2025 8:01 PM INDUSTRIAL HYGIENE ENGINEER Kalia Carmona MD LAB POCT ORDERAB LES - DEVICE Final Result Performing Organization Address [facility] de Phone Number [facility] [place] [address] * POCT glucose (04/28/2025 5:39 PM INDUSTRIAL HYGIENE ENGINEER) Glucose, POC 154 70 - 199 mg/dL Blood 04/28/2025 5:39 PM INDUSTRIAL HYGIENE ENGINEER 04/28/2025 5:39 PM INDUSTRIAL HYGIENE ENGINEER Kalia Carmona MD LAB POCT ORDERAB LES - DEVICE Final Result Performing Organization Address [facility] de Phone Number [facility] [place] [address] * (ABNORMAL) ECG 12-LEAD (04/28/2025 3:15 PM INDUSTRIAL HYGIENE ENGINEER) Narrative [facility] [place] 04/28/2025 3:15 PM INDUSTRIAL HYGIENE ENGINEER Mony Aguirre MD 06/05/2025 2:18 PM ECG 12 lead Date/Time: 04/28/2025 3:15 PM Performed by: Carlos Alberto Quiñones MD Authorized by: Carlos Alberto Quiñones MD Rate: ECG rate: 162 ECG rate assessment: tachycardic Rhythm: Rhythm: atrial flutter Rhythm comment: 2:1 QRS: QRS axis: Normal ST segments: ST segments: Non-specific T waves: T waves: non-specific Previous ECG: Previous ECG: Unavailable Interpretation: Interpretation: abnormal Recommended Follow-up: Recommended follow up: further workup in the ED us Carlos Alberto Quiñones MD ECG ORDERABLES Final Res ult Performing Organization Address [facility] de Phone Number [facility] * (ABNORMAL) ECG 12-LEAD (04/28/2025 2:04 PM INDUSTRIAL HYGIENE ENGINEER) Narrative [facility] - 04/28/2025 2:04 PM INDUSTRIAL HYGIENE ENGINEER Mony Aguirre MD 06/05/2025 2:18 PM ECG 12 lead Date/Time: 04/28/2025 2:04 PM Performed by: Carlos Alberto Quiñones MD Authorized by: Carlos Alberto Quiñones MD Rate: ECG rate: 162 ECG rate assessment: tachycardic Rhythm: Rhythm: atrial flutter Rhythm comment: 2-1 QRS: QRS axis: Normal ST segments: ST segments: Normal T waves: T waves: non-specific Previous ECG: Previous ECG: Unavailable Interpretation: Interpretation: abnormal Recommended Follow-up: Recommended follow up: further workup in the ED us Carlos Alberto Quiñones MD ECG ORDERABLES Final Res ult Performing Organization Address [facility] de Phone Number [facility] * (ABNORMAL) Urinalysis reflex to microscopic and culture Urine (04/28/2025 12:57 PM INDUSTRIAL HYGIENE ENGINEER) Color, ur Straw Yellow Clarity, ur Clear Clear [facility] Specific gravity, ur 1.029 1.003 - 1.030 [facility] pH, urine 6.0 [facility] Comment: Interpretive Data U rine pH is affected by diet, medications, systemic acid-base disturbances, and renal tubular function. pH may affect urinary stone formation. For example, urine pH below 6.0 may help reduce the tendency for calcium phosphate stones and pH greater than 6.0 may reduce the tendency for uric acid stone formation. Source: [facility] Current Interpretive Data was last revised on 2017 Protein, ur ql Trace Negative [facility] Glucose, ur ql 4+(A) Negative [facility] Ketones, ur 1+(A) Negative [facility] Bilirubin, ur Negative Negative [facility] Blood, ur Negative Negative [facility] Urobilinogen, ur <2.0 <2.0 mg/dL [facility] Nitrite, ur Negative Negative [facility] Leukocyte esterase, ur Negative Negative [facility] UA reflex comment Reflex conditions for microscopic UA and culture not met. [facility] Urine 04/28/2025 12:5 7 PM INDUSTRIAL HYGIENE ENGINEER 04/28/2025 1:42 PM INDUSTRIAL HYGIENE ENGINEER us Carlos Alberto Quiñones MD LAB MICROBIOLOGY - GENERA L ORDERABLES Final Result [facility] [place] [address] * RI CRITICAL CARE ILL/INJURED PATIENT INIT 30-74 MIN (04/28/2025 11:53 AM INDUSTRIAL HYGIENE ENGINEER) Narrative Mony Aguirre MD - 04/28/2025 11:53 AM INDUSTRIAL HYGIENE ENGINEER Mony Aguirre MD 06/05/2025 2:17 PM Critical Care Performed by: Mony Aguirre MD Authorized by: Mony Aguirre MD Critical care provider statement: As reflected in the history, physical exam, orders, notes, and/or MDM, I was personally present while the patient was critically ill and provided critical care services for 48 minutes, excluding time involved in separately billable procedures. Critical care was necessary to treat or prevent imminent or life-threatening deterioration of the following condition(s): unstable vital signs tachy/joseph arrhythmic event severe respiratory condition Critical care was time spent by me providing the following: continuous telemetry, continuous pulse oximetry, interpretation of bedside monitors, imaging, and arterial/venous lab draws and serial bedside patient exams initiation of rate controlling agent empiric broad coverage antibiotics I provided emergent necessary critical care medicine services to this patient. I ordered and reviewed test results and/or imaging studies. I spent time discussing the management of this critically ill patient with consultants and the medical staff. I spent time discussing the management and therapeutic options for this critically ill patient with the patient themselves or with the appropriate designated surrogate decision-maker. I admitted this patient to a continuous cardiac monitored bed. us Mony Aguirre MD IN CLINIC/BEDSIDE OR DERABLES Final Result * Troponin I high-sensitivity 2-hour (04/28/2025 11:33 AM INDUSTRIAL HYGIENE ENGINEER) Trop I hs 15 <=35 ng/L Comment: Interpretive Data For further hscTnI resources including the diagnostic algorithm and an aid in interpretation, copy and paste this link: https://bjhlab.testcatalog.org/show/[email or web address] Current Interpretive Data last revised 2020. Trop I hs delta -3 ng/L [facility] Trop I hs interp Insignificant [facility] Blood 04/28/2025 11:3 3 AM INDUSTRIAL HYGIENE ENGINEER 04/28/2025 11:58 AM INDUSTRIAL HYGIENE ENGINEER us Carlos Alberto Quiñones MD LAB BLOOD ORDERABLES Lena l Result [facility] [place] [address] * Blood culture Blood Peripheral (04/28/2025 11:33 AM INDUSTRIAL HYGIENE ENGINEER) Report Final Report: No growth Blood (Peripheral) 04/28/2025 11:33 AM INDUSTRIAL HYGIENE ENGINEER 04/28/2025 11:54 AM INDUSTRIAL HYGIENE ENGINEER Narrative [facility] - 05/[facility] 12:00 PM INDUSTRIAL HYGIENE ENGINEER From a different site than #1. Draw Blood cultures before administration of Antibiotics Collection->Peripheral 1. Blood cultures are incubated for 4 days on a continuously monitored blood culture system. The first report of a negative culture is issued within 24 hours of receipt of the specimen in the laboratory. 2. Positive culture results are reported as soon as they are detected. 3. The most important factor for detection of microbes in the setting of bloodstream infection is the volume of blood submitted for culture. Failure to collect an optimal blood volume can result in false negative blood cultures. 4. For pediatric patients, the recommended blood volume to collect follows a weight based strategy. See the electronic test catalog for collection instructions. 5. For positive blood cultures, a rapid molecular test may be performed for organism identification using the nanette ePlex blood culture identification panel for gram positive (BCID-GP) and gram negative (BCID-GN) organisms. This nucleic acid amplification test detects microbial DNA in positive blood culture broth. This assay has been cleared by the [place] Food and Drug Administration and its performance characteristics have been verified by the [facility]. For questions about this culture, contact the Microbiology Laboratory at [phone]. Interpretive data was last revised on 24. us Carlos Alberto Quiñones MD LAB MICROBIOLOGY - GENERA L ORDERABLES Final Result [facility] [place] [address] * (ABNORMAL) Blood culture Blood Peripheral (04/28/2025 11:33 AM INDUSTRIAL HYGIENE ENGINEER) Direct Specimen Exam Molecular Analysis: Staphylococcus epidermidis (methicillin-resis tant) detected by nanette ePlex BCID-GP panel. Single positive culture may represent contamination. This test does not exclude the possibility of a mixed bacterial infection. Notification of: Staphylococcus epidermidis (methicillin-resis tant) called to and read back by: Vane Salcedo MD on 04/29/2025 10:21:49 by: Delbert Martinez MT Direct Specimen Exam Stain: Gram Positive Cocci in clusters Time to culture positivity (anaerobic media): 19.7 hours Notification of: Gram Positive Cocci in clusters called to and read back by: Vane Salcedo MD, on 04/29/2025 08:03:59 by: Shakir Setphenson([facility]) [facility] Report Final Report: Staphylococcus epidermidis Single blood culture positive for this microorganism. Isolate is a possible contaminant. If a similar isolate is recovered from a second blood culture collected within 3 days of this culture, both will be evaluated and, if determined to be the same species, antimicrobial susceptibility testing will be performed. (.) [facility] Organism STAPHYLOCOCCUS EPIDERMIDIS [facility] Blood (Peripheral) 04/28/2025 11:33 AM INDUSTRIAL HYGIENE ENGINEER 04/28/2025 11:54 AM INDUSTRIAL HYGIENE ENGINEER Narrative [facility] - 05/03/2025 3:17 PM INDUSTRIAL HYGIENE ENGINEER Draw Blood cultures before administration of Antibiotics Collection->Peripheral 1. Blood cultures are incubated for 4 days on a continuously monitored blood culture system. The first report of a negative culture is issued within 24 hours of receipt of the specimen in the laboratory. 2. Positive culture results are reported as soon as they are detected. 3. The most important factor for detection of microbes in the setting of bloodstream infection is the volume of blood submitted for culture. Failure to collect an optimal blood volume can result in false negative blood cultures. 4. For pediatric patients, the recommended blood volume to collect follows a weight based strategy. See the electronic test catalog for collection instructions. 5. For positive blood cultures, a rapid molecular test may be performed for organism identification using the nanette ePlex blood culture identification panel for gram positive (BCID-GP) and gram negative (BCID-GN) organisms. This nucleic acid amplification test detects microbial DNA in positive blood culture broth. This assay has been cleared by the [place] Food and Drug Administration and its performance characteristics have been verified by the [facility]. For questions about this culture, contact the Microbiology Laboratory at [phone]. Interpretive data was last revised on 24. Carlos Alberto Quiñones MD LAB MICROBIOLOGY - GENERA L ORDERABLES Final Result [facility] [place] [address] * CT Chest PE (CTA) W Contrast (04/28/2025 10:55 AM INDUSTRIAL HYGIENE ENGINEER) Anatomical Region Laterality Modality Body N/A Computed Tomogra phy 04/28/2025 11:4 6 AM INDUSTRIAL HYGIENE ENGINEER Impressions 04/28/2025 9:50 PM INDUSTRIAL HYGIENE ENGINEER 1. No evidence of acute pulmonary embolism. 2. Increasing postobstructive left lung consolidation concerning for postobstructive pneumonia as well as increased now moderate size left pleural effusion. 3. No significant interval change in extent of distant metastatic disease. Dictated by: Ganesh Ku M.D. The radiology attending physician has personally reviewed this study, and had reviewed and/or edited this written report and agrees with it. Electronically signed by: Robin Bloom M.D. Narrative 04/28/2025 9:50 PM INDUSTRIAL HYGIENE ENGINEER EXAMINATION: CT CHEST PE (CTA) W CONTRAST HISTORY: 59-year-old male with history of lung cancer presenting with tachycardia. Concern for pulmonary embolism. TECHNIQUE: Computed tomographic images were acquired using a chest angiographic protocol optimized for pulmonary embolism. Contrast enhanced transaxial images were obtained following the intravenous administration of 69 ml of nonionic contrast. Multiplanar reformatted images and three-dimensional images were obtained on the 3-D workstation and sent to the PACS archival system. COMPARISON: 03/31/2025 CT FINDINGS: Previously seen left-sided postobstructive consolidation and pleural effusion have increased in size and are with associated near total collapse of the left lung. Areas of hypoenhancement in the consolidation is concerning for pneumonia. The right lung is clear. The previously seen ill-defined left infrahilar mass is not well delineated on this exam due to enlarging above described consolidation. The imaged thyroid is within normal limits. The previously seen left-sided supraclavicular lymph node on series 5 image 41 is unchanged in size from prior exam. The additional left axillary lymphadenopathy is also unchanged, measuring up to 2.8 cm (series 5 image 112). Again noted, is bulky mediastinal lymphadenopathy. For example, an anterior right paratracheal lymph node measures 2.3 cm as seen previously. An additional left paratracheal lymph node also measures 1.5 cm. The heart size is within normal limits. Thoracic aorta and main pulmonary artery are of normal caliber. No pericardial effusion. Right internal jugular central venous catheter tip terminates in the right atrium as seen previously. No acute findings in the imaged upper abdomen. Unchanged adrenal nodule measuring 1 cm (series 5 image 325). Unchanged appearance of right 1st rib lesion. No new suspicious lytic or blastic osseous lesion. There is a lipoma behind the right scapula. Procedure Note Robin Bloom MD PhD - 04/28/2025 EXAMINATION: CT CHEST PE (CTA) W CONTRAST HISTORY: 59-year-old male with history of lung cancer presenting with tachycardia. Concern for pulmonary embolism. TECHNIQUE: Computed tomographic images were acquired using a chest angiographic protocol optimized for pulmonary embolism. Contrast enhanced transaxial images were obtained following the intravenous administration of 69 ml of nonionic contrast. Multiplanar reformatted images and three-dimensional images were obtained on the 3-D workstation and sent to the PACS archival system. COMPARISON: 03/31/2025 CT FINDINGS: Previously seen left-sided postobstructive consolidation and pleural effusion have increased in size and are with associated near total collapse of the left lung. Areas of hypoenhancement in the consolidation is concerning for pneumonia. The right lung is clear. The previously seen ill-defined left infrahilar mass is not well delineated on this exam due to enlarging above described consolidation. The imaged thyroid is within normal limits. The previously seen left-sided supraclavicular lymph node on series 5 image 41 is unchanged in size from prior exam. The additional left axillary lymphadenopathy is also unchanged, measuring up to 2.8 cm (series 5 image 112). Again noted, is bulky mediastinal lymphadenopathy. For example, an anterior right paratracheal lymph node measures 2.3 cm as seen previously. An additional left paratracheal lymph node also measures 1.5 cm. The heart size is within normal limits. Thoracic aorta and main pulmonary artery are of normal caliber. No pericardial effusion. Right internal jugular central venous catheter tip terminates in the right atrium as seen previously. No acute findings in the imaged upper abdomen. Unchanged adrenal nodule measuring 1 cm (series 5 image 325). Unchanged appearance of right 1st rib lesion. No new suspicious lytic or blastic osseous lesion. There is a lipoma behind the right scapula. IMPRESSION: 1. No evidence of acute pulmonary embolism. 2. Increasing postobstructive left lung consolidation concerning for postobstructive pneumonia as well as increased now moderate size left pleural effusion. 3. No significant interval change in extent of distant metastatic disease. Dictated by: Ganesh Ku M.D. The radiology attending physician has personally reviewed this study, and had reviewed and/or edited this written report and agrees with it. Electronically signed by: Robin Tye Bugenhagen, M.D. us Carlos Alberto Quiñones MD IMG CT PROCEDURES Final R esult * Sepsis Lactate w/ Reflex (04/28/2025 10:35 AM INDUSTRIAL HYGIENE ENGINEER) Pathologist [facility] Sepsis Lactate 1.7 0.7 - 2.0 mmol/L Blood 04/28/2025 10:3 5 AM INDUSTRIAL HYGIENE ENGINEER 04/28/2025 10:44 AM INDUSTRIAL HYGIENE ENGINEER Mony Aguirre MD LAB BLOOD ORDERABLES Final Result [facility] [place] [address] * (ABNORMAL) Differential, auto (04/28/2025 10:35 AM INDUSTRIAL HYGIENE ENGINEER) [facility] Neutrophil abs 10.12(H) 1.50 - 6.50 K/cumm Imm gran abs 0.09 0.00 - 0.10 K/cumm [facility] Lymphocyte abs 1.48 0.80 - 3.30 K/cumm [facility] Monocyte abs 0.78 0.20 - 0.80 K/cumm [facility] Eosinophil abs 0.19 0.00 - 0.50 K/cumm [facility] Basophil abs 0.06 0.00 - 0.10 K/cumm [facility] Neutrophil pct 79.6 % [facility] Comment: Interpretive Data Percent cell count reference ranges are not reported, since discordance with absolute values may lead to misinterpretation of CBC data. Current Interpretive Data was last revised on 2017. Imm gran pct 0.7 % [facility] Comment: Interpretive Data Percent cell count reference ranges are not reported, since discordance with absolute values may lead to misinterpretation of CBC data. Current Interpretive Data was last revised on 2017. Lymphocyte pct 11.6 % [facility] Comment: Interpretive Data Percent cell count reference ranges are not reported, since discordance with absolute values may lead to misinterpretation of CBC data. Current Interpretive Data was last revised on 2017. Monocyte pct 6.1 % [facility] Comment: Interpretive Data Percent cell count reference ranges are not reported, since discordance with absolute values may lead to misinterpretation of CBC data. Current Interpretive Data was last revised on 2017. Eosinophil pct 1.5 % [facility] Comment: Interpretive Data Percent cell count reference ranges are not reported, since discordance with absolute values may lead to misinterpretation of CBC data. Current Interpretive Data was last revised on 2017. Basophil pct 0.5 % [facility] Comment: Interpretive Data Percent cell count reference ranges are not reported, since discordance with absolute values may lead to misinterpretation of CBC data. Current Interpretive Data was last revised on 2017. Blood 04/28/2025 10:3 5 AM INDUSTRIAL HYGIENE ENGINEER 04/28/2025 10:44 AM INDUSTRIAL HYGIENE ENGINEER us Mony Aguirre MD LAB BLOOD ORDERABLES Final Result [facility] [place] [address] * (ABNORMAL) CBC with auto differential (04/28/2025 10:35 AM INDUSTRIAL HYGIENE ENGINEER) WBC 12.72(H) 3.80 - 9.90 K/cumm Hgb 13.9 13.0 - 17.5 g/dL [facility] Hct 46.6 38.9 - 50.3 % [facility] Plt 286 150 - 400 K/cumm [facility] MPV 8.7(L) 9.1 - 12.3 fL [facility] RBC 6.08(H) 4.30 - 5.80 M/cumm [facility] MCV 76.6(L) 81.3 - 96.4 fL [facility] MCH 22.9(L) 27.1 - 33.3 pg [facility] MCHC 29.8(L) 32.3 - 35.7 g/dL [facility] RDW CV 17.6(H) 11.1 - 14.9 % [facility] RDW SD 46.3 35.7 - 48.1 fL [facility] NRBC abs 0.00 0.00 - 0.01 K/cumm [facility] Blood 04/28/2025 10:3 5 AM INDUSTRIAL HYGIENE ENGINEER 04/28/2025 10:44 AM INDUSTRIAL HYGIENE ENGINEER Mony Aguirre MD LAB BLOOD ORDERABLES Final Result Performing Organization Address [facility] Co de Phone Number [facility] [place] [address] * POCT glucose (04/28/2025 9:24 AM INDUSTRIAL HYGIENE ENGINEER) Glucose, POC 109 70 - 199 mg/dL Blood 04/28/2025 9:24 AM INDUSTRIAL HYGIENE ENGINEER 04/28/2025 9:24 AM INDUSTRIAL HYGIENE ENGINEER Result [facility] Mony Aguirre MD LAB POCT ORDERABLES - DEVICE Final Result Performing Organization Address [facility] de Phone Number [facility] [place] [address] * Troponin I high-sensitivity series (baseline, 2hr, 4hr, 6hr) (04/28/2025 9:12 AM INDUSTRIAL HYGIENE ENGINEER) Pathologist [facility] Trop I hs 18 <=35 ng/L Comment: Interpretive Data For further hscTnI resources including the diagnostic algorithm and an aid in interpretation, copy and paste this link: [email or web address]/[email or web address] Current Interpretive Data last revised 2020. Blood 04/28/2025 9:12 AM INDUSTRIAL HYGIENE ENGINEER 04/28/2025 9:35 AM INDUSTRIAL HYGIENE ENGINEER Carlos Alberto Quiñones MD LAB BLOOD ORDERABLES Lena l Result Performing Organization Address [facility] Co de Phone Number [facility] [place] [address] * eGFR (04/28/2025 9:12 AM INDUSTRIAL HYGIENE ENGINEER) eGFR >90 >=60 mL/min/1. 73 m2 Comment: Interpretive Data Reference Interval Normal >/= 90 mL/min/1.73m2 Mildly decreased* 60 - 89 mL/min/1.73m2 Mildly to moderately decreased 45 - 59 mL/min/1.73m2 Moderately to severely decreased 30 - 44 mL/min/1.73m2 Severely decreased 15 - 29 mL/min/1.73m2 Kidney Failure < 15 mL/min/1.73m2 *Relative to young adult level Estimated glomerular filtration rate is determined by the 2020 CKD-EPI equation recommended by the National Kidney Foundation (A Unifying Approach to GFR Estimation: Recommendations of the NKF-ASK Task Force on Reassessing the Inclusion of Race in Diagnosing Kidney Disease, JASN 2020). The CKD-EPI equation should not be used for patients with unstable renal function and has not been validated in children and those over 70. Current interpretive data was last reviewed 2021. Blood 04/28/2025 9:12 AM INDUSTRIAL HYGIENE ENGINEER 04/28/2025 9:35 AM INDUSTRIAL HYGIENE ENGINEER us Carlos Alberto Quiñones MD LAB BLOOD ORDERABLES Lena grimm Result [facility] [place] [address] * (ABNORMAL) Pro B-type natriuretic peptide (04/28/2025 9:12 AM INDUSTRIAL HYGIENE ENGINEER) NT-proBNP 1,037(H) <=300 pg/mL Comment: Interpretive Comments: A. Dyspnea in Acute Care Setting All Ages: < 300 pg/ml, acute heart failure unlikely. < 50 yrs: 300 - 450 pg/ml, further investigation warranted. > 450 pg/ml, acute heart failure likely. 50 - 74 yrs: 300 - 900 pg/ml, further investigation warranted. > 900 pg/ml, acute heart failure likely . > or = 75 yrs: 450 - 1800 pg/ml, further investigation warranted. > 1800 pg/ml, acute heart failure likely. B. Non-acute Setting < 75 yrs < 125 pg/ml, rules out heart failure. > or = 125 pg/ml, further investigation warranted. > or = 75 yrs < 450 pg/ml, rules out heart failure. > or = 450 pg/ml, further investigation warranted. - Knowledge of each individual patient's NT-proBNP range may be more useful than using similar cut-points for every patient. Please note that marked elevations in NT-proBNP levels may be observed in state other than Left Ventricular Congestive Failure, including: acute coronary syndromes, right heart strain/failure (including pulmonary embolism and cor pulmonale), critical illness, renal failure, as well as advanced age. - References: 1. Bishnu POE et.al. Eur Heart J. 2006:27:330-337. 2. Morgan RW, Elizabeth TRIPATHI. J. AM Tori Cardiol: Cardiovasc Imag. 2009;2: 216- 225. Interpretive Data Last Revised Date: 2018. Blood 04/28/2025 9:12 AM INDUSTRIAL HYGIENE ENGINEER 04/28/2025 9:35 AM INDUSTRIAL HYGIENE ENGINEER Carlos Alberto Quiñones MD LAB BLOOD ORDERABLES Lena l Result Performing Organization Address [facility] Co de Phone Number [facility] [place] [address] * Thyroid Function [place] (04/28/2025 9:12 AM INDUSTRIAL HYGIENE ENGINEER) [facility] TSH 2.10 0.30 - 4.20 mcIUnit/mL Blood 04/28/2025 9:12 AM INDUSTRIAL HYGIENE ENGINEER 04/28/2025 9:35 AM INDUSTRIAL HYGIENE ENGINEER Carlos Alberto Quiñones MD LAB BLOOD ORDERABLES Lena l Result Performing Organization Address [facility] Co de Phone Number [facility] [place] [address] * Respiratory pathogen panel Nasopharyngeal (04/28/2025 9:12 AM INDUSTRIAL HYGIENE ENGINEER) [facility] Influenza A RNA Not Detected Not Detected Influenza B RNA Not Detected Not Detected [facility] RSV RNA Not Detected Not Detected [facility] COVID-19 RNA Not Detected Not Detected [facility] Coronavirus 229E RNA Not Detected Not Detected [facility] Coronavirus HKU1 RNA Not Detected Not Detected [facility] Coronavirus NL63 RNA Not Detected Not Detected [facility] Coronavirus OC43 RNA Not Detected Not Detected [facility] Adenovirus DNA Not Detected Not Detected [facility] Metapneumovirus RNA Not Detected Not Detected [facility] Rhinovirus/Enterov irus RNA Not Detected Not Detected [facility] Parainfluenza 1 RNA Not Detected Not Detected [facility] Parainfluenza 2 RNA Not Detected Not Detected [facility] Parainfluenza 3 RNA Not Detected Not Detected [facility] Parainfluenza 4 RNA Not Detected Not Detected [facility] B. pertussis DNA Not Detected Not Detected [facility] B. parapertussis DNA Not Detected Not Detected [facility] C. pneumoniae DNA Not Detected Not Detected [facility] M. pneumoniae DNA Not Detected Not Detected [facility] Nasopharyngeal 04/28/2025 9: 12 AM INDUSTRIAL HYGIENE ENGINEER 04/28/2025 9:29 AM INDUSTRIAL HYGIENE ENGINEER Narrative [facility] - 04/28/2025 10:42 AM INDUSTRIAL HYGIENE ENGINEER Is the Patient experiencing symptoms consistent with COVID?->Unknown Surveillance testing for transplant patient?->No Interpretive Data The [employer] FilmArray Respiratory Panel (RP2.1) assay is a multiplexed real-time PCR based nucleic acid test capable of simultaneous qualitative detection and identification of multiple respiratory viral and bacterial nucleic acids, including SARS Coronavirus 2 (the causative agent of COVID-19). The following bacteria, viruses and virus subtypes can be identified using the FilmArray RP2.1 assay: Bordetella pertussis, Bordetella parapertussis, Chlamydia pneumoniae, Mycoplasma pneumoniae, Adenovirus, SARS Coronavirus 2, seasonal coronaviruses (Coronavirus HKU1, Coronavirus NL63, Coronavirus 229E, and Coronavirus OC43), Influenza A, Influenza A subtype H1, Influenza A subtype H3, Influenza A subtype 2009 H1, Influenza B, Metapneumovirus, Parainfluenza 1, Parainfluenza 2, Parainfluenza 3, Parainfluenza 4, RSV, Rhinovirus/Enterovirus. Due to the genetic similarity between human Rhinovirus and Enterovirus, the FilmArray RP2.1 assay cannot reliably differentiate them. Coronavirus OC43 may cross-react with some isolates of Coronavirus HKU1. A dual positive result may be due to cross-reactivity or may indicate a co- infection. The detection and identification of specific viral and bacterial nucleic acids from individuals exhibiting signs and symptoms of a respiratory infection aids in the diagnosis of respiratory infection if used in conjunction with other clinical and epidemiological information. The results of this test should not be used as the sole basis for diagnosis, treatment, or other management decisions. Negative results in the setting of a respiratory illness may be due to infection with pathogens that are not detected by this test. Positive results do not rule out infection/co-infection with other organisms. The agent(s) detected by the FilmArray RP2.1 may not be the definite cause of disease. Additional testing (lab, imaging, etc.) may be necessary when evaluating a patient with possible respiratory tract infection. The FilmArray RP2.1 assay has FDA clearance for testing of BREAKER OILER swabs. The performance of additional specimen types has been assessed by the performing laboratory. The performance characteristics of this assay have been determined by [facility] Molecular Infectious Disease Laboratory. Current interpretive data was last revised on 22. Carlos Alberto Quiñones MD LAB MICROBIOLOGY - GENERA L ORDERABLES Final Result Performing Organization Address City/State/[facility] de Phone Number [facility] [place] [address] * (ABNORMAL) aPTT (04/28/2025 9:12 AM INDUSTRIAL HYGIENE ENGINEER) Pathologist [facility] aPTT 22(L) 26 - 38 sec Comment: Interpretive Data Heparin therapeutic range: 66.0 - 100.0 seconds. Range based on correlation with therapeutic heparin activity range of 0.3 - 0.7 Units/mL. Current interpretive data was last revised on 2023. Blood 04/28/2025 9:12 AM INDUSTRIAL HYGIENE ENGINEER 04/28/2025 9:28 AM INDUSTRIAL HYGIENE ENGINEER Carlos Alberto Quiñones MD LAB BLOOD ORDERABLES Lena l Result Performing Organization Address City/State/[facility] Co de Phone Number [facility] [place] [address] * Protime-INR (04/28/2025 9:12 AM INDUSTRIAL HYGIENE ENGINEER) [facility] PT 13.5 10.2 - 13.5 sec INR 1.20 0.90 - 1.20 [facility] Comment: Interpretive data Oral anticoagulant therapeutic ranges: Venous thromboembolism prophylaxis or treatment: 2.0-3.0 CARDIOLOGY Standard range: 2.0-3.0 High-intensity range: 2.5-3.5 Refer to indication-specific guidelines for appropriate target ranges for prosthetic heart valve replacement. Current interpretive data was last revised on 2019. Blood 04/28/2025 9:12 AM INDUSTRIAL HYGIENE ENGINEER 04/28/2025 9:28 AM INDUSTRIAL HYGIENE ENGINEER Carlos Alberto Quiñones MD LAB BLOOD ORDERABLES Lena l Result Performing Organization Address [facility] de Phone Number [facility] [place] [address] * Magnesium (04/28/2025 9:12 AM INDUSTRIAL HYGIENE ENGINEER) [facility] Magnesium 1.9 1.4 - 2.5 mg/dL Blood 04/28/2025 9:12 AM INDUSTRIAL HYGIENE ENGINEER 04/28/2025 9:35 AM INDUSTRIAL HYGIENE ENGINEER Carlos Alberto Quiñones MD LAB BLOOD ORDERABLES Lena l Result Performing Organization Address [facility] de Phone Number [facility] [place] [address] * (ABNORMAL) Comprehensive metabolic panel (04/28/2025 9:12 AM INDUSTRIAL HYGIENE ENGINEER) [facility] Sodium 133(L) 135 - 145 mmol/L Potassium, pl 4.8 3.3 - 4.9 mmol/L [facility] Comment:Hemolyzed; Potassium value may be falsely elevated by as much as 0.3-0.5 mmol/L. Suggest redraw and reanalysis. Chloride 95(L) 97 - 110 mmol/L [facility] CO2 28 22 - 32 mmol/L [facility] Anion gap 10 2 - 15 mmol/L [facility] BUN 12 6 - 25 mg/dL [facility] Creatinine 0.71(L) 0.80 - 1.30 mg/dL [facility] Glucose 99 70 - 199 mg/dL [facility] Comment: Interpretive Data Fasting glucose >/= 126 mg/dl is diagnostic for diabetes. Fasting is defined as no caloric intake for at least 8 hours. Fasting glucose between 100 mg/dl to 125 mg/dl is diagnostic of prediabetes. In a patient with classic symptoms of hyperglycemia or hyperglycemic crisis, a random glucose >/= 200 mg/dl is diagnostic for diabetes. In the absence of unequivocal hyperglycemia, results should be confirmed by repeat testing. The classification and Diagnosis of Diabetes Diabetes Care 2021; 46: S19-S40. Current interpretive data was last revised 2022. Calcium 10.0 8.5 - 10.3 mg/dL [facility] Bilirubin, total 0.5 0.1 - 1.2 mg/dL [facility] Protein, pl 7.3 6.5 - 8.5 g/dL [facility] Albumin 3.2(L) 3.5 - 5.0 g/dL [facility] Alk phos 78 40 - 130 Units/L [facility] ALT 14 7 - 55 Units/L [facility] AST 29 10 - 50 Units/L [facility] Comment:Hemolyzed; result ma y be falsely elevated Blood 04/28/2025 9:12 AM INDUSTRIAL HYGIENE ENGINEER 04/28/2025 9:35 AM INDUSTRIAL HYGIENE ENGINEER us Carlos Alberto Quiñones MD LAB BLOOD ORDERABLES Lena grimm Result [facility] [place] [address] * eGFR (04/28/2025 7:16 AM INDUSTRIAL HYGIENE ENGINEER) eGFR >90 >=60 mL/min/1. 73 m2 Comment: Interpretive Data Reference Interval Normal >/= 90 mL/min/1.73m2 Mildly decreased* 60 - 89 mL/min/1.73m2 Mildly to moderately decreased 45 - 59 mL/min/1.73m2 Moderately to severely decreased 30 - 44 mL/min/1.73m2 Severely decreased 15 - 29 mL/min/1.73m2 Kidney Failure < 15 mL/min/1.73m2 *Relative to young adult level Estimated glomerular filtration rate is determined by the 2020 CKD-EPI equation recommended by the National Kidney Foundation (A Unifying Approach to GFR Estimation: Recommendations of the NKF-ASK Task Force on Reassessing the Inclusion of Race in Diagnosing Kidney Disease, JASN 2020). The CKD-EPI equation should not be used for patients with unstable renal function and has not been validated in children and those over 70. Current interpretive data was last reviewed 2021. Blood 04/28/2025 7:16 AM INDUSTRIAL HYGIENE ENGINEER 04/28/2025 7:21 AM INDUSTRIAL HYGIENE ENGINEER us Sea Ocampo MD LAB BLOOD ORDERABLES Lena l Result [facility] Department of Laboratories [place], [place] [id number] * (ABNORMAL) Differential, auto (04/28/2025 7:16 AM INDUSTRIAL HYGIENE ENGINEER) Neutrophil abs 9.15(H) 1.50 - 6.50 K/cumm Comment:Testing performed by : [facility], [address] [place] [phone] Lymphocyte abs 1.88 0.80 - 3.30 K/cumm [facility] Comment:Testing performed by : [facility], [address] [place] [phone] Monocyte abs 0.75 0.20 - 0.80 K/cumm [facility] Comment:Testing performed by : [facility], [address] [place] [phone] Eosinophil abs 0.22 0.00 - 0.50 K/cumm [facility] Comment:Testing performed by : [facility], [address] [place] [phone] Basophil abs 0.11(H) 0.00 - 0.10 K/cumm [facility] Comment:Testing performed by : [facility], [address] [place] [phone] Neutrophil pct 75.5 % [facility] Comment: Interpretive Data Percent cell count reference ranges are not reported, since discordance with absolute values may lead to misinterpretation of CBC data. Current Interpretive Data was last revised on 2017. Testing performed by: [facility], [address] [place] [phone] Lymphocyte pct 15.5 % [facility] Comment: Interpretive Data Percent cell count reference ranges are not reported, since discordance with absolute values may lead to misinterpretation of CBC data. Current Interpretive Data was last revised on 2017. Testing performed by: [facility], [address] [place] [phone] Monocyte pct 6.2 % [facility] Comment: Interpretive Data Percent cell count reference ranges are not reported, since discordance with absolute values may lead to misinterpretation of CBC data. Current Interpretive Data was last revised on 2017. Testing performed by: [facility], [address] [place] [phone] Eosinophil pct 1.8 % [facility] Comment: Interpretive Data Percent cell count reference ranges are not reported, since discordance with absolute values may lead to misinterpretation of CBC data. Current Interpretive Data was last revised on 2017. Testing performed by: [facility], [address] [place] [phone] Basophil pct 0.9 % [facility] Comment: Interpretive Data Percent cell count reference ranges are not reported, since discordance with absolute values may lead to misinterpretation of CBC data. Current Interpretive Data was last revised on 2017. Testing performed by: [facility], [address] [place] [phone] Blood 04/28/2025 7:16 AM INDUSTRIAL HYGIENE ENGINEER 04/28/2025 7:17 AM INDUSTRIAL HYGIENE ENGINEER us Sea Ocampo MD LAB BLOOD ORDERABLES Lena sirisha Result [facility] [place] [address] * (ABNORMAL) CBC with auto differential (04/28/2025 7:16 AM INDUSTRIAL HYGIENE ENGINEER) WBC 12.30(H) 3.80 - 9.90 K/cumm Comment:Testing performed by : [facility], [address] [place] [address] Hgb 14.1 13.0 - 17.5 g/dL [facility] Comment:Testing performed by : [facility], [address] [place] [address] Hct 45.3 38.9 - 50.3 % [facility] Comment:Testing performed by : [facility], [address] [place] [address] Plt 361 150 - 400 K/cumm [facility] Comment:Testing performed by : [facility], [address] [place] [address] MPV 7.0 6.8 - 10.4 fL [facility] Comment:Testing performed by : [facility], [address] [place] [address] RBC 6.17(H) 4.30 - 5.80 M/cumm [facility] Comment:Testing performed by : [facility], [address] [place] [address] MCV 73.3(L) 81.3 - 96.4 fL [facility] Comment:Testing performed by : [facility], [address] [place] [address] MCH 22.8(L) 27.1 - 33.3 pg [facility] Comment:Testing performed by : [facility], [address] [place] [phone] MCHC 31.1(L) 32.3 - 35.7 g/dL [facility] Comment:Testing performed by : [facility], [address] [place], [place] [phone] RDW CV 17.9(H) 11.1 - 14.9 % [facility] Comment:Testing performed by : [facility], [address] [place], [place] [phone] NRBC abs 0.00 0.00 - 0.01 K/cumm [facility] Comment:Testing performed by : [facility] [facility], [address] [place], [place] [phone] Blood 04/28/2025 7:16 AM INDUSTRIAL HYGIENE ENGINEER 04/28/2025 7:17 AM INDUSTRIAL HYGIENE ENGINEER Sea Ocampo MD LAB BLOOD ORDERABLES Lena l Result Performing Organization Address City/[facility]/ZIP Co de Phone Number [facility] [place] [address] * (ABNORMAL) Reticulocyte Count (04/28/2025 7:16 AM INDUSTRIAL HYGIENE ENGINEER) Retics, absolute 142(H) 20 - 100 K/cumm Comment:Testing performed by : [facility], [address] [place], [place] [phone] Retics 2.3(H) 0.5 - 1.8 % [facility] Comment:Testing performed by : [facility], [address] [place], [place] [phone] Blood 04/28/2025 7:16 AM INDUSTRIAL HYGIENE ENGINEER 04/28/2025 7:17 AM INDUSTRIAL HYGIENE ENGINEER Sea Ocampo MD LAB BLOOD ORDERABLES Lena l Result [facility] [place] [address] * Phosphorus (04/28/2025 7:16 AM INDUSTRIAL HYGIENE ENGINEER) Phosphorus, pl 2.8 2.3 - 4.5 mg/dL Blood 04/28/2025 7:16 AM INDUSTRIAL HYGIENE ENGINEER 04/28/2025 7:21 AM INDUSTRIAL HYGIENE ENGINEER us Sea Ocampo MD LAB BLOOD ORDERABLES Lena l Result Performing Organization Address [facility] Co de Phone Number [facility] [place] [address] * Magnesium (04/28/2025 7:16 AM INDUSTRIAL HYGIENE ENGINEER) Pathologist [facility] Magnesium 2.1 1.4 - 2.5 mg/dL Blood 04/28/2025 7:16 AM INDUSTRIAL HYGIENE ENGINEER 04/28/2025 7:21 AM INDUSTRIAL HYGIENE ENGINEER us Sea Ocampo MD LAB BLOOD ORDERABLES Lena l Result Performing Organization Address [facility] de Phone Number [facility] [place] [address] * Lipase (04/28/2025 7:16 AM INDUSTRIAL HYGIENE ENGINEER) Pathologist [facility] Lipase 14 10 - 99 Units/L Blood 04/28/2025 7:16 AM INDUSTRIAL HYGIENE ENGINEER 04/28/2025 7:21 AM INDUSTRIAL HYGIENE ENGINEER us Sea Ocampo MD LAB BLOOD ORDERABLES Lena l Result Performing Organization Address [facility] Co de Phone Number [facility] [place] [address] * Lactate dehydrogenase (LD) (04/28/2025 7:16 AM INDUSTRIAL HYGIENE ENGINEER) Pathologist [facility] Lactate dehydrogenase (LDH) 218 100 - 250 Units/L Blood 04/28/2025 7:16 AM INDUSTRIAL HYGIENE ENGINEER 04/28/2025 7:21 AM INDUSTRIAL HYGIENE ENGINEER us Sea Ocampo MD LAB BLOOD ORDERABLES Lena l Result Performing Organization Address City/[facility]/ZIP Co de Phone Number [facility] [place] [address] * Gamma GT (04/28/2025 7:16 AM INDUSTRIAL HYGIENE ENGINEER) GGT 34 10 - 50 Units/L Blood 04/28/2025 7:16 AM INDUSTRIAL HYGIENE ENGINEER 04/28/2025 7:21 AM INDUSTRIAL HYGIENE ENGINEER Sea Ocampo MD LAB BLOOD ORDERABLES Lena l Result Performing Organization Address [facility] Co de Phone Number [facility] [place] [address] * Bilirubin, direct (04/28/2025 7:16 AM INDUSTRIAL HYGIENE ENGINEER) Bilirubin, direct 0.2 0.1 - 0.3 mg/dL Blood 04/28/2025 7:16 AM INDUSTRIAL HYGIENE ENGINEER 04/28/2025 7:21 AM INDUSTRIAL HYGIENE ENGINEER Sea Ocampo MD LAB BLOOD ORDERABLES Lena l Result Performing Organization Address [facility] Co de Phone Number [facility] [place] [address] * Amylase (04/28/2025 7:16 AM INDUSTRIAL HYGIENE ENGINEER) Amylase 32 30 - 99 Units/L Blood 04/28/2025 7:16 AM INDUSTRIAL HYGIENE ENGINEER 04/28/2025 7:21 AM INDUSTRIAL HYGIENE ENGINEER us Sea Ocampo MD LAB BLOOD ORDERABLES Lena l Result Performing Organization Address City/[facility]/ZIP Co de Phone Number [facility] [place] [address] * (ABNORMAL) Comprehensive metabolic panel (04/28/2025 7:16 AM INDUSTRIAL HYGIENE ENGINEER) Sodium 134(L) 135 - 145 mmol/L Potassium, pl 4.4 3.3 - 4.9 mmol/L [facility] Chloride 97 97 - 110 mmol/L [facility] CO2 29 22 - 32 mmol/L [facility] Anion gap 8 2 - 15 mmol/L [facility] BUN 12 6 - 25 mg/dL [facility] Creatinine 0.66(L) 0.80 - 1.30 mg/dL [facility] Glucose 110 70 - 199 mg/dL [facility] Comment: Interpretive Data Fasting glucose >/= 126 mg/dl is diagnostic for diabetes. Fasting is defined as no caloric intake for at least 8 hours. Fasting glucose between 100 mg/dl to 125 mg/dl is diagnostic of prediabetes. In a patient with classic symptoms of hyperglycemia or hyperglycemic crisis, a random glucose >/= 200 mg/dl is diagnostic for diabetes. In the absence of unequivocal hyperglycemia, results should be confirmed by repeat testing. The classification and Diagnosis of Diabetes Diabetes Care 2021; 46: S19-S40. Current interpretive data was last revised 2022. Calcium 9.9 8.5 - 10.3 mg/dL [facility] Bilirubin, total 0.4 0.1 - 1.2 mg/dL [facility] Protein, pl 7.4 6.5 - 8.5 g/dL [facility] Albumin 3.2(L) 3.5 - 5.0 g/dL [facility] Alk phos 75 40 - 130 Units/L [facility] ALT 10 7 - 55 Units/L [facility] AST 19 10 - 50 Units/L [facility] Blood 04/28/2025 7:16 AM INDUSTRIAL HYGIENE ENGINEER 04/28/2025 7:21 AM INDUSTRIAL HYGIENE ENGINEER us Sea Ocampo MD LAB BLOOD ORDERABLES Lena grimm Result [facility] [place] [address] * (ABNORMAL) Urinalysis reflex to microscopic and culture Urine (04/28/2025 7:02 AM INDUSTRIAL HYGIENE ENGINEER) Color, ur Straw Yellow Clarity, ur Clear Clear [facility] Specific gravity, ur 1.025 1.003 - 1.030 [facility] pH, urine 6.0 [facility] Comment: Interpretive Data U rine pH is affected by diet, medications, systemic acid-base disturbances, and renal tubular function. pH may affect urinary stone formation. For example, urine pH below 6.0 may help reduce the tendency for calcium phosphate stones and pH greater than 6.0 may reduce the tendency for uric acid stone formation. Source: [facility] Current Interpretive Data was last revised on 2017 Protein, ur ql Trace Negative [facility] Glucose, ur ql 4+(A) Negative [facility] Ketones, ur Negative Negative [facility] Bilirubin, ur Negative Negative [facility] Blood, ur Negative Negative [facility] Urobilinogen, ur <2.0 <2.0 mg/dL [facility] Nitrite, ur Negative Negative [facility] Leukocyte esterase, ur Negative [facility] UA reflex comment Reflex conditions for microscopic UA and culture not met. [facility] Urine 04/28/2025 7:02 AM INDUSTRIAL HYGIENE ENGINEER 04/28/2025 7:21 AM INDUSTRIAL HYGIENE ENGINEER us Sea Ocampo MD LAB MICROBIOLOGY - GENERA L ORDERABLES Final Result [facility] [place] [address] * eGFR (04/21/2025 10:45 AM CDT) eGFR >90 >=60 mL/min/1. 73 m2 Comment: Interpretive Data Reference Interval Normal >/= 90 mL/min/1.73m2 Mildly decreased* 60 - 89 mL/min/1.73m2 Mildly to moderately decreased 45 - 59 mL/min/1.73m2 Moderately to severely decreased 30 - 44 mL/min/1.73m2 Severely decreased 15 - 29 mL/min/1.73m2 Kidney Failure < 15 mL/min/1.73m2 *Relative to young adult level Estimated glomerular filtration rate is determined by the 2020 CKD-EPI equation recommended by the National Kidney Foundation (A Unifying Approach to GFR Estimation: Recommendations of the NKF-ASK Task Force on Reassessing the Inclusion of Race in Diagnosing Kidney Disease, JASN 2020). The CKD-EPI equation should not be used for patients with unstable renal function and has not been validated in children and those over 70. Current interpretive data was last reviewed 2021. Blood 04/21/2025 10:4 5 AM CDT 04/21/2025 11:02 AM CDT us Rosa Maria Harris BREAKER OILER LAB BLOOD ORDERABLES Lena grimm Result [facility] [place] [address] * (ABNORMAL) Differential, auto (04/21/2025 10:45 AM CDT) Neutrophil abs 8.99(H) 1.50 - 6.50 K/cumm Comment:Testing performed by : [facility], [address] [place] [phone] Lymphocyte abs 1.42 0.80 - 3.30 K/cumm [facility] Comment:Testing performed by : [facility], [address] [place] [phone] Monocyte abs 0.76 0.20 - 0.80 K/cumm [facility] C[facility] Comment:Testing performed by : [facility], [address] [place] [phone] Eosinophil abs 0.28 0.00 - 0.50 K/cumm [facility] Comment:Testing performed by : [facility], [address] [place] [phone] Basophil abs 0.04 0.00 - 0.10 K/cumm [facility] CARR[facility] Comment:Testing performed by : [facility], [address] [place] [phone] Neutrophil pct 78.2 % [facility] Comment: Interpretive Data Percent cell count reference ranges are not reported, since discordance with absolute values may lead to misinterpretation of CBC data. Current Interpretive Data was last revised on 2017. Testing performed by: [facility], [address] [place] [phone] Lymphocyte pct 12.4 % [facility] Comment: Interpretive Data Percent cell count reference ranges are not reported, since discordance with absolute values may lead to misinterpretation of CBC data. Current Interpretive Data was last revised on 2017. Testing performed by: [facility], [address] [place] [phone] Monocyte pct 6.6 % [facility] Comment: Interpretive Data Percent cell count reference ranges are not reported, since discordance with absolute values may lead to misinterpretation of CBC data. Current Interpretive Data was last revised on 2017. Testing performed by: [facility], [address] [place] [address] Eosinophil pct 2.5 % [facility] Comment: Interpretive Data Percent cell count reference ranges are not reported, since discordance with absolute values may lead to misinterpretation of CBC data. Current Interpretive Data was last revised on 2017. Testing performed by: [facility], [address] [place] [phone] Basophil pct 0.4 % [facility] Comment: Interpretive Data Percent cell count reference ranges are not reported, since discordance with absolute values may lead to misinterpretation of CBC data. Current Interpretive Data was last revised on 2017. Testing performed by: [facility], [address] [place] [phone] Blood 04/21/2025 10:4 5 AM CDT 04/21/2025 10:55 AM CDT us Rosa Maria Harris BREAKER OILER LAB BLOOD ORDERABLES Lena grimm Result [facility] [place] [address] * (ABNORMAL) CBC with auto differential (04/21/2025 10:45 AM CDT) WBC 11.49(H) 3.80 - 9.90 K/cumm Comment:Testing performed by : [facility], [address] [place] [address] Hgb 14.4 13.0 - 17.5 g/dL [facility] Comment:Testing performed by : [facility], [address] [place], [place] [phone] Hct 46.1 38.9 - 50.3 % [facility] Comment:Testing performed by : [facility], [address] [place], [place] [phone] Plt 377 150 - 400 K/cumm [facility] Comment:Testing performed by : [facility], [address] [place], [place] [phone] MPV 6.7(L) 6.8 - 10.4 fL [facility] Comment:Testing performed by : [facility], [address] [place] [address] RBC 6.35(H) 4.30 - 5.80 M/cumm [facility] Comment:Testing performed by : [facility], [address] [place] [address] MCV 72.6(L) 81.3 - 96.4 fL [facility] Comment:Testing performed by : [facility], [address] [place] [address] MCH 22.7(L) 27.1 - 33.3 pg [facility] Comment:Testing performed by : [facility], [address] [place] [address] MCHC 31.3(L) 32.3 - 35.7 g/dL [facility] Comment:Testing performed by : [facility], [address] [place] [address] RDW CV 17.7(H) 11.1 - 14.9 % [facility] Comment:Testing performed by : [facility], [address] [place] [address] NRBC abs 0.00 0.00 - 0.01 K/cumm [facility] Comment:Testing performed by : [facility], [address] [place] [phone] Blood 04/21/2025 10:4 5 AM CDT 04/21/2025 10:55 AM CDT Rosa Maria Harris BREAKER OILER LAB BLOOD ORDERABLES Lena l Result Performing Organization Address [facility] de Phone Number [facility] [place] [address] * (ABNORMAL) Reticulocyte Count (04/21/2025 10:45 AM CDT) Retics, absolute 131(H) 20 - 100 K/cumm Comment:Testing performed by : [facility], [address] [place] [phone] Retics 2.1(H) 0.5 - 1.8 % [facility] Comment:Testing performed by : [facility], [address] [place] [phone] Blood 04/21/2025 10:4 5 AM CDT 04/21/2025 10:55 AM CDT Rosa Maria Harris BREAKER OILER LAB BLOOD ORDERABLES Lena l Result Performing Organization Address [facility] de Phone Number [facility] [place] [address] * Phosphorus (04/21/2025 10:45 AM CDT) Phosphorus, pl 2.8 2.3 - 4.5 mg/dL Blood 04/21/2025 10:4 5 AM CDT 04/21/2025 11:02 AM CDT Rosa Maria Harris BREAKER OILER LAB BLOOD ORDERABLES Lena l Result Performing Organization Address [facility]/ZIP Co de Phone Number [facility] [place] [address] * Magnesium (04/21/2025 10:45 AM CDT) Magnesium 2.1 1.4 - 2.5 mg/dL Blood 04/21/2025 10:4 5 AM CDT 04/21/2025 11:02 AM CDT Rosa Maria Harris BREAKER OILER LAB BLOOD ORDERABLES Lena l Result Performing Organization Address [facility] [place] [address] * Lipase (04/21/2025 10:45 AM CDT) Pathologist [facility] Lipase 16 10 - 99 Units/L Blood 04/21/2025 10:4 5 AM CDT 04/21/2025 11:02 AM CDT Rosa Maria Harris BREAKER OILER LAB BLOOD ORDERABLES Lena l Result Performing Organization Address [facility] Co de Phone Number [facility] [place] [address] * Lactate dehydrogenase (LD) (04/21/2025 10:45 AM CDT) Lactate dehydrogenase (LDH) 250 100 - 250 Units/L Blood 04/21/2025 10:4 5 AM CDT 04/21/2025 11:02 AM CDT Rosa Maria Harris BREAKER OILER LAB BLOOD ORDERABLES Lena l Result Performing Organization Address City/[facility]/ZIP Co de Phone Number [facility] [place] [address] * Gamma GT (04/21/2025 10:45 AM CDT) Pathologist [facility] GGT 49 10 - 50 Units/L Blood 04/21/2025 10:4 5 AM CDT 04/21/2025 11:02 AM CDT Rosa Maria Harris BREAKER OILER LAB BLOOD ORDERABLES Lena l Result Performing Organization Address [facility] Co de Phone Number [facility] [address] * Bilirubin, direct (04/21/2025 10:45 AM CDT) [facility] Bilirubin, direct 0.2 0.1 - 0.3 mg/dL Blood 04/21/2025 10:4 5 AM CDT 04/21/2025 11:02 AM CDT Rosa Maria Harris BREAKER OILER LAB BLOOD ORDERABLES Lena l Result Performing Organization Address [facility] de Phone Number [facility] [address] * Amylase (04/21/2025 10:45 AM CDT) [facility] Amylase 38 30 - 99 Units/L Blood 04/21/2025 10:4 5 AM CDT 04/21/2025 11:02 AM CDT Rosa Maria Harris BREAKER OILER LAB BLOOD ORDERABLES Lena l Result Performing Organization Address City/[facility] de Phone Number [facility] [place] [address] * (ABNORMAL) Comprehensive metabolic panel (04/21/2025 10:45 AM CDT) [facility] Sodium 133(L) 135 - 145 mmol/L Potassium, pl 4.2 3.3 - 4.9 mmol/L [facility] Chloride 95(L) 97 - 110 mmol/L [facility] CO2 30 22 - 32 mmol/L [facility] Anion gap 8 2 - 15 mmol/L [facility] BUN 14 6 - 25 mg/dL [facility] Creatinine 0.73(L) 0.80 - 1.30 mg/dL [facility] Glucose 122 70 - 199 mg/dL [facility] Comment: Interpretive Data Fasting glucose >/= 126 mg/dl is diagnostic for diabetes. Fasting is defined as no caloric intake for at least 8 hours. Fasting glucose between 100 mg/dl to 125 mg/dl is diagnostic of prediabetes. In a patient with classic symptoms of hyperglycemia or hyperglycemic crisis, a random glucose >/= 200 mg/dl is diagnostic for diabetes. In the absence of unequivocal hyperglycemia, results should be confirmed by repeat testing. The classification and Diagnosis of Diabetes Diabetes Care 202; 46: S19-S40. Current interpretive data was last revised 2022. Calcium 10.4(H) 8.5 - 10.3 mg/dL [facility] Bilirubin, total 0.4 0.1 - 1.2 mg/dL [facility] Protein, pl 7.8 6.5 - 8.5 g/dL [facility] Albumin 3.4(L) 3.5 - 5.0 g/dL [facility] Alk phos 92 40 - 130 Units/L [facility] ALT 18 7 - 55 Units/L [facility] AST 23 10 - 50 Units/L [facility] Blood 04/21/2025 10:4 5 AM CDT 04/21/2025 11:02 AM CDT us Rosa Maria Harris BREAKER OILER LAB BLOOD ORDERABLES Lena grimm Result [facility] [place] [address] * (ABNORMAL) Aerobic and anaerobic culture and gram stain Wound Arm, left (04/14/2025 4:45 PM CDT) Direct Specimen Exam Stain: Moderate polymorphonuclear leukocytes seen. Abundant Gram Positive Cocci Abundant Gram Positive Bacilli Report Final Report: Moderate Mixed microorganisms. (.) [facility] Organism MIXED MICROORGANISMS. [facility] Wound (Arm, left) 04/14/2025 4:45 PM CDT 04/14/2025 7:18 PM CDT Narrative [facility] CARRION - 04/18/2025 1:42 PM CDT Left upper arm Specimen received on an ESwab. Testing performed by [facility] ([phone]) Specimens submitted from normally sterile body sites will have all bacterial morphotypes identified. Specimens that contain grossly mixed halle and/or are from body sites that are not normally sterile will be examined for Staphylococcus aureus, Pseudomonas aeruginosa, beta-hemolytic strep, vancomycin-resistant Enterococcus, Bacteroides, Parabacteroides, Clostridium perfringens and fungus. If any of these are isolated, the organism will be reported. Current interpretive data was last revised on 2019. Rosa Maria Harris NP LAB MICROBIOLOGY - GENERA L ORDERABLES Final Result [facility] [place] [address] * eGFR (04/14/2025 10:20 AM CDT) eGFR >90 >=60 mL/min/1. 73 m2 Comment: Interpretive Data Reference Interval Normal >/= 90 mL/min/1.73m2 Mildly decreased* 60 - 89 mL/min/1.73m2 Mildly to moderately decreased 45 - 59 mL/min/1.73m2 Moderately to severely decreased 30 - 44 mL/min/1.73m2 Severely decreased 15 - 29 mL/min/1.73m2 Kidney Failure < 15 mL/min/1.73m2 *Relative to young adult level Estimated glomerular filtration rate is determined by the 2020 CKD-EPI equation recommended by the National Kidney Foundation (A Unifying Approach to GFR Estimation: Recommendations of the NKF-ASK Task Force on Reassessing the Inclusion of Race in Diagnosing Kidney Disease, JASN 2020). The CKD-EPI equation should not be used for patients with unstable renal function and has not been validated in children and those over 70. Current interpretive data was last reviewed 2021. Blood 04/14/2025 10:2 0 AM CDT 04/14/2025 10:31 AM CDT us Rosa Maria Harris BREAKER OILER LAB BLOOD ORDERABLES Lena grimm Result [facility] [place] [address] * (ABNORMAL) Differential, auto (04/14/2025 10:20 AM CDT) Neutrophil abs 8.29(H) 1.50 - 6.50 K/cumm Comment:Testing performed by : [facility], [address] [place] [phone] Lymphocyte abs 0.95 0.80 - 3.30 K/cumm [facility] Comment:Testing performed by : [facility], [address] [place] [phone] Monocyte abs 0.82(H) 0.20 - 0.80 K/cumm [facility] Comment:Testing performed by : [facility], [address] [place] [phone] Eosinophil abs 0.37 0.00 - 0.50 K/cumm [facility] Comment:Testing performed by : [facility], [address] [place] [phone] Basophil abs 0.07 0.00 - 0.10 K/cumm [facility] Comment:Testing performed by : [facility], [address] [place], [place] [phone] Neutrophil pct 78.9 % [facility] Comment: Interpretive Data Percent cell count reference ranges are not reported, since discordance with absolute values may lead to misinterpretation of CBC data. Current Interpretive Data was last revised on 2017. Testing performed by: [facility], [address] [place] [phone] Lymphocyte pct 9.1 % [facility] Comment: Interpretive Data Percent cell count reference ranges are not reported, since discordance with absolute values may lead to misinterpretation of CBC data. Current Interpretive Data was last revised on 2017. Testing performed by: [facility], [address] [place] [phone] Monocyte pct 7.8 % [facility] Comment: Interpretive Data Percent cell count reference ranges are not reported, since discordance with absolute values may lead to misinterpretation of CBC data. Current Interpretive Data was last revised on 2017. Testing performed by: [facility], [address] [place] [phone] Eosinophil pct 3.5 % [facility] Comment: Interpretive Data Percent cell count reference ranges are not reported, since discordance with absolute values may lead to misinterpretation of CBC data. Current Interpretive Data was last revised on 2017. Testing performed by: [facility], [address] [place] [phone] Basophil pct 0.7 % BENJAMIN CARRION Comment: Interpretive Data Percent cell count reference ranges are not reported, since discordance with absolute values may lead to misinterpretation of CBC data. Current Interpretive Data was last revised on 2017. Testing performed by: [facility], [address] [place] [phone] Blood 04/14/2025 10:2 0 AM CDT 04/14/2025 10:28 AM CDT us Rosa Maria Harris BREAKER OILER LAB BLOOD ORDERABLES Lena l Result [facility] [place] [address] * (ABNORMAL) CBC with auto differential (04/14/2025 10:20 AM CDT) WBC 10.50(H) 3.80 - 9.90 K/cumm Comment:Testing performed by : [facility], [address] [place] [phone] Hgb 14.1 13.0 - 17.5 g/dL BENJAMIN CARRION Comment:Testing performed by : [facility], [address] [place] [address] Hct 45.3 38.9 - 50.3 % CERNER BJ Comment:Testing performed by : [facility], [address] [place], [place] [phone] Plt 316 150 - 400 K/cumm CERNER BJ Comment:Testing performed by : [facility], [address] [place], [place] [phone] MPV 6.6(L) 6.8 - 10.4 fL CERNER BJ Comment:Testing performed by : [facility], [address] [place], [place] [phone] RBC 6.04(H) 4.30 - 5.80 M/cumm CERNER BJ Comment:Testing performed by : [facility], [address] [place], [place] [phone] MCV 74.9(L) 81.3 - 96.4 fL CERNER BJ Comment:Testing performed by : [facility], [address] [place], [place] [phone] MCH 23.4(L) 27.1 - 33.3 pg CERNER BJ Comment:Testing performed by : [facility], [address] [place], [place] [phone] MCHC 31.2(L) 32.3 - 35.7 g/dL CERNER BJ Comment:Testing performed by : [facility], [address] [place] [address] RDW CV 17.5(H) 11.1 - 14.9 % CERNER BJ Comment:Testing performed by : [facility], [address] [place] [address] NRBC abs 0.00 0.00 - 0.01 K/cumm CERNER BJ Comment:Testing performed by : [facility], [address] [place], [place] [phone] Blood 04/14/2025 10:2 0 AM CDT 04/14/2025 10:28 AM CDT Rosa Maria Harris BREAKER OILER LAB BLOOD ORDERABLES Lena l Result [facility] [place] [address] * Reticulocyte Count (04/14/2025 10:20 AM CDT) Retics, absolute 86 20 - 100 K/cumm Comment:Testing performed by : [facility], [address] [place] [phone] Retics 1.4 0.5 - 1.8 % [facility] Comment:Testing performed by : [facility], [address] [place] [phone] Blood 04/14/2025 10:2 0 AM CDT 04/14/2025 10:28 AM CDT Rosa Maria Harris BREAKER OILER LAB BLOOD ORDERABLES Lena l Result Performing Organization Address City/[facility] Co de Phone Number [facility] [place] [address] * Phosphorus (04/14/2025 10:20 AM CDT) Phosphorus, pl 2.7 2.3 - 4.5 mg/dL Blood 04/14/2025 10:2 0 AM CDT 04/14/2025 10:31 AM CDT Rosa Maria Harris BREAKER OILER LAB BLOOD ORDERABLES Lena l Result [facility] [place] [address] * Magnesium (04/14/2025 10:20 AM CDT) Pathologist [facility] Magnesium 2.1 1.4 - 2.5 mg/dL Blood 04/14/2025 10:2 0 AM CDT 04/14/2025 10:31 AM CDT Rosa Maria Harris BREAKER OILER LAB BLOOD ORDERABLES Lena l Result Performing Organization Address [facility] de Phone Number [facility] [place] [address] * Lipase (04/14/2025 10:20 AM CDT) Lipase 24 10 - 99 Units/L Blood 04/14/2025 10:2 0 AM CDT 04/14/2025 10:31 AM CDT Rosa Maria Harris BREAKER OILER LAB BLOOD ORDERABLES Lena l Result Performing Organization Address [facility] Phone Number [facility] [place] [address] * (ABNORMAL) Lactate dehydrogenase (LD) (04/14/2025 10:20 AM CDT) Lactate dehydrogenase (LDH) 349(H) 100 - 250 Units/L Blood 04/14/2025 10:2 0 AM CDT 04/14/2025 10:31 AM CDT Rosa Maria Harris BREAKER OILER LAB BLOOD ORDERABLES Lena l Result Performing Organization Address [facility] de Phone Number [facility] [place] [address] * Gamma GT (04/14/2025 10:20 AM CDT) GGT 27 10 - 50 Units/L Blood 04/14/2025 10:2 0 AM CDT 04/14/2025 10:31 AM CDT Rosa Maria Harris BREAKER OILER LAB BLOOD ORDERABLES Lena l Result Performing Organization Address City/[facility] de Phone Number [facility] [place] [address] * Bilirubin, direct (04/14/2025 10:20 AM CDT) [facility] Bilirubin, direct 0.2 0.1 - 0.3 mg/dL Blood 04/14/2025 10:2 0 AM CDT 04/14/2025 10:31 AM CDT Rosa Maria Harris BREAKER OILER LAB BLOOD ORDERABLES Lena l Result Performing Organization Address [facility] [place] [address] * Amylase (04/14/2025 10:20 AM CDT) [facility] Amylase 44 30 - 99 Units/L Blood 04/14/2025 10:2 0 AM CDT 04/14/2025 10:31 AM CDT Rosa Maria Harris BREAKER OILER LAB BLOOD ORDERABLES Elna l Result Performing Organization Address [facility] [place] [address] * (ABNORMAL) Comprehensive metabolic panel (04/14/2025 10:20 AM CDT) [facility] Sodium 134(L) 135 - 145 mmol/L Potassium, pl 3.7 3.3 - 4.9 mmol/L [facility] Chloride 100 97 - 110 mmol/L [facility] CO2 26 22 - 32 mmol/L [facility] Anion gap 8 2 - 15 mmol/L [facility] BUN 7 6 - 25 mg/dL [facility] Creatinine 0.69(L) 0.80 - 1.30 mg/dL [facility] Glucose 116 70 - 199 mg/dL [facility] Comment: Interpretive Data Fasting glucose >/= 126 mg/dl is diagnostic for diabetes. Fasting is defined as no caloric intake for at least 8 hours. Fasting glucose between 100 mg/dl to 125 mg/dl is diagnostic of prediabetes. In a patient with classic symptoms of hyperglycemia or hyperglycemic crisis, a random glucose >/= 200 mg/dl is diagnostic for diabetes. In the absence of unequivocal hyperglycemia, results should be confirmed by repeat testing. The classification and Diagnosis of Diabetes Diabetes Care 2021; 46: S19-S40. Current interpretive data was last revised 2022. Calcium 8.7 8.5 - 10.3 mg/dL [facility] Bilirubin, total 0.4 0.1 - 1.2 mg/dL [facility] Protein, pl 7.4 6.5 - 8.5 g/dL [facility] Albumin 3.3(L) 3.5 - 5.0 g/dL [facility] Alk phos 81 40 - 130 Units/L [facility] ALT 11 7 - 55 Units/L [facility] AST 22 10 - 50 Units/L [facility] Blood 04/14/2025 10:2 0 AM CDT 04/14/2025 10:31 AM CDT us Rosa Maria Harris BREAKER OILER LAB BLOOD ORDERABLES Lena grimm Result [facility] [place] [address] * (ABNORMAL) Urinalysis reflex to microscopic and culture Urine (04/14/2025 10:15 AM CDT) Color, ur Yellow Yellow Clarity, ur Clear Clear [facility] Specific gravity, ur 1.038(H) 1.003 - 1.030 [facility] pH, urine 6.5 [facility] Comment: Interpretive Data U rine pH is affected by diet, medications, systemic acid-base disturbances, and renal tubular function. pH may affect urinary stone formation. For example, urine pH below 6.0 may help reduce the tendency for calcium phosphate stones and pH greater than 6.0 may reduce the tendency for uric acid stone formation. Source: [facility] Current Interpretive Data was last revised on 2017 Protein, ur ql 1+(A) Negative [facility] Glucose, ur ql 4+(A) Negative [facility] Ketones, ur Negative Negative [facility] Bilirubin, ur Negative Negative [facility] Blood, ur Negative Negative [facility] Urobilinogen, ur <2.0 <2.0 mg/dL [facility] Nitrite, ur Negative Negative [facility] Leukocyte esterase, ur Negative CERNER BJ UA reflex comment Reflex to microscopic UA will be performed. [facility] Urine 04/14/2025 10:1 5 AM CDT 04/14/2025 10:47 AM CDT Rosa Maria Harris BREAKER OILER LAB MICROBIOLOGY - GENERA L ORDERABLES Final Result Performing Organization Address [facility] Co de Phone Number [facility] Department [place] [address] * (ABNORMAL) Urinalysis, microscopic only (04/14/2025 10:15 AM CDT) WBC, ur 0-5 0 - 5 /HPF RBC, ur 3-5(A) 0 - 2 /HPF [facility] Epithelial cells, squamous, ur 1-5 0 - 5 /HPF [facility] Bacteria, ur 1+(A) [facility] Yeast, ur Trace(A) [facility] Culture Reflex Comment Reflex conditions for urine culture (WBC >10) not met. [facility] Urine 04/14/2025 10:1 5 AM CDT 04/14/2025 10:47 AM CDT Rosa Maria Harris BREAKER OILER LAB URINE ORDERABLES Lena l Result Performing Organization Address [facility]/ZIP Co de Phone Number [facility] [place] [address] * (ABNORMAL) Differential, auto (04/08/2025 7:49 AM CDT) Neutrophil abs 9.56(H) 1.50 - 6.50 K/cumm Comment:Testing performed by : [facility], [address] [place] [phone] Lymphocyte abs 1.12 0.80 - 3.30 K/cumm C[facility]ER [facility] Comment:Testing performed by : [facility], [address] [place] [phone] Monocyte abs 0.65 0.20 - 0.80 K/cumm [facility]ER [facility] Comment:Testing performed by : [facility], [address] [place] [phone] Eosinophil abs 0.19 0.00 - 0.50 K/cumm [facility] Comment:Testing performed by : [facility], [address] [place] [phone] Basophil abs 0.08 0.00 - 0.10 K/cumm [facility] Comment:Testing performed by : [facility], [address] [place] [phone] Neutrophil pct 82.5 % C[facility]ER [facility] Comment: Interpretive Data Percent cell count reference ranges are not reported, since discordance with absolute values may lead to misinterpretation of CBC data. Current Interpretive Data was last revised on 2017. Testing performed by: [facility], [address] [place] [phone] Lymphocyte pct 9.6 % [facility] Comment: Interpretive Data Percent cell count reference ranges are not reported, since discordance with absolute values may lead to misinterpretation of CBC data. Current Interpretive Data was last revised on 2017. Testing performed by: [facility], [address] [place] [phone] Monocyte pct 5.6 % [facility] Comment: Interpretive Data Percent cell count reference ranges are not reported, since discordance with absolute values may lead to misinterpretation of CBC data. Current Interpretive Data was last revised on 2017. Testing performed by: [facility], [address] [place] [phone] Eosinophil pct 1.6 % [facility] Comment: Interpretive Data Percent cell count reference ranges are not reported, since discordance with absolute values may lead to misinterpretation of CBC data. Current Interpretive Data was last revised on 2017. Testing performed by: [facility], [address] [place] [address] Basophil pct 0.7 % BENJAMIN CARRION Comment: Interpretive Data Percent cell count reference ranges are not reported, since discordance with absolute values may lead to misinterpretation of CBC data. Current Interpretive Data was last revised on 2017. Testing performed by: [facility], [address] [place] [address] Blood 04/08/2025 7:49 AM CDT 04/08/2025 7:58 AM CDT us Sea Ocampo MD LAB BLOOD ORDERABLES Lena grimm Result BENJAMIN CARRION [facility] [place] [address] * (ABNORMAL) CBC with auto differential (04/08/2025 7:49 AM CDT) WBC 11.60(H) 3.80 - 9.90 K/cumm Comment:Testing performed by : [facility], [address] [place] [address] Hgb 14.6 13.0 - 17.5 g/dL BENJAMIN CARRION Comment:Testing performed by : [facility], [address] [place] [address] Hct 45.6 38.9 - 50.3 % BENJAMIN CARRION Comment:Testing performed by : [facility], [address] [place] [address] Plt 261 150 - 400 K/cumm BENJAMIN CARRION Comment:Testing performed by : [facility], [address] [place] [address] MPV 6.5(L) 6.8 - 10.4 fL BENJAMIN CARRION Comment:Testing performed by : [facility], [address] [place] [phone] RBC 6.13(H) 4.30 - 5.80 M/cumm [facility] Comment:Testing performed by : [facility], [address] [place] [address] MCV 74.4(L) 81.3 - 96.4 fL [facility] Comment:Testing performed by : [facility], [address] [place] [address] MCH 23.9(L) 27.1 - 33.3 pg [facility] Comment:Testing performed by : [facility], [address] [place] [address] MCHC 32.1(L) 32.3 - 35.7 g/dL [facility] Comment:Testing performed by : [facility], [address] [place] [address] RDW CV 16.8(H) 11.1 - 14.9 % [facility] Comment:Testing performed by : [facility], [address] [place] [address] NRBC abs 0.00 0.00 - 0.01 K/cumm [facility] Comment:Testing performed by : [facility], [address] [place] [address] Blood 04/08/2025 7:49 AM CDT 04/08/2025 7:58 AM CDT us Sea Ocampo MD LAB BLOOD ORDERABLES Lena grimm Result [facility] [place] [address] * (ABNORMAL) Reticulocyte Count (04/08/2025 7:49 AM CDT) Retics, absolute 164(H) 20 - 100 K/cumm Comment:Testing performed by : [facility], [address] [place] [address] Retics 2.7(H) 0.5 - 1.8 % [facility] Comment:Testing performed by : [facility], [facility] [place] [phone] Blood 04/08/2025 7:49 AM CDT 04/08/2025 7:58 AM CDT Sea Ocampo MD LAB BLOOD ORDERABLES Lena l Result [facility] [place] [address] * (ABNORMAL) Urinalysis reflex to microscopic and culture Urine (04/07/2025 7:36 AM CDT) Color, ur Straw Yellow Clarity, ur Clear Clear [facility] Specific gravity, ur 1.017 1.003 - 1.030 [facility] pH, urine 7.0 [facility] Comment: Interpretive Data U rine pH is affected by diet, medications, systemic acid-base disturbances, and renal tubular function. pH may affect urinary stone formation. For example, urine pH below 6.0 may help reduce the tendency for calcium phosphate stones and pH greater than 6.0 may reduce the tendency for uric acid stone formation. Source: [facility] Current Interpretive Data was last revised on 2017 Protein, ur ql Negative Negative [facility] Glucose, ur ql 4+(A) Negative [facility] Ketones, ur Negative Negative [facility] Bilirubin, ur Negative Negative [facility] Blood, ur Negative Negative [facility] Urobilinogen, ur <2.0 <2.0 mg/dL [facility] Nitrite, ur Negative Negative [facility] Leukocyte esterase, ur Negative [facility] UA reflex comment Reflex conditions for microscopic UA and culture not met. [facility] Urine 04/07/2025 7:36 AM CDT 04/07/2025 7:36 AM CDT Sea Ocampo MD LAB MICROBIOLOGY - GENERA L ORDERABLES Final Result [facility] [place] [address] * eGFR (04/07/2025 7:31 AM CDT) Pathologist [facility] eGFR >90 >=60 mL/min/1. 73 m2 Comment: Interpretive Data Reference Interval Normal >/= 90 mL/min/1.73m2 Mildly decreased* 60 - 89 mL/min/1.73m2 Mildly to moderately decreased 45 - 59 mL/min/1.73m2 Moderately to severely decreased 30 - 44 mL/min/1.73m2 Severely decreased 15 - 29 mL/min/1.73m2 Kidney Failure < 15 mL/min/1.73m2 *Relative to young adult level Estimated glomerular filtration rate is determined by the 2020 CKD-EPI equation recommended by the National Kid[employer] (A Unifying Approach to GFR Estimation: Recommendations of the NKF-ASK Task Force on Reassessing the Inclusion of Race in Diagnosing Kidney Disease, JASN 2020). The CKD-EPI equation should not be used for patients with unstable renal function and has not been validated in children and those over 70. Current interpretive data was last reviewed 2021. Blood 04/07/2025 7:31 AM CDT 04/07/2025 7:36 AM CDT us Sea Ocampo MD LAB BLOOD ORDERABLES Lena grimm Result [facility] [place] [address] * (ABNORMAL) Differential, auto (04/07/2025 7:31 AM CDT) Pathologist [facility] Neutrophil abs 8.24(H) 1.50 - 6.50 K/cumm Comment:Testing performed by : [facility], [address] [place] [phone] Lymphocyte abs 1.34 0.80 - 3.30 K/cumm BENJAMIN CARRION Comment:Testing performed by : [facility], [address] [place] [phone] Monocyte abs 0.74 0.20 - 0.80 K/cumm [facility] Comment:Testing performed by : [facility], [address] [place] [phone] Eosinophil abs 0.28 0.00 - 0.50 K/cumm [facility] Comment:Testing performed by : [facility], [address] [place] [phone] Basophil abs 0.06 0.00 - 0.10 K/cumm [facility] Comment:Testing performed by : [facility], [address] [place] [phone] Neutrophil pct 77.3 % [facility] Comment: Interpretive Data Percent cell count reference ranges are not reported, since discordance with absolute values may lead to misinterpretation of CBC data. Current Interpretive Data was last revised on 2017. Testing performed by: [facility], [address] [place] [phone] Lymphocyte pct 12.6 % [facility]ER [facility] Comment: Interpretive Data Percent cell count reference ranges are not reported, since discordance with absolute values may lead to misinterpretation of CBC data. Current Interpretive Data was last revised on 2017. Testing performed by: [facility], [address] [place] [phone] Monocyte pct 6.9 % [facility] Comment: Interpretive Data Percent cell count reference ranges are not reported, since discordance with absolute values may lead to misinterpretation of CBC data. Current Interpretive Data was last revised on 2017. Testing performed by: [facility], [address] [place] [phone] Eosinophil pct 2.6 % [facility] Comment: Interpretive Data Percent cell count reference ranges are not reported, since discordance with absolute values may lead to misinterpretation of CBC data. Current Interpretive Data was last revised on 2017. Testing performed by: [facility], [address] [place] [phone] Basophil pct 0.6 % [facility] Comment: Interpretive Data Percent cell count reference ranges are not reported, since discordance with absolute values may lead to misinterpretation of CBC data. Current Interpretive Data was last revised on 2017. Testing performed by: [facility], [address] [place] [phone] Blood 04/07/2025 7:31 AM CDT 04/07/2025 7:34 AM CDT us Sea Ocampo MD LAB BLOOD ORDERABLES Lena sirisha Result [facility] [place] [address] * (ABNORMAL) CBC with auto differential (04/07/2025 7:31 AM CDT) WBC 10.66(H) 3.80 - 9.90 K/cumm Comment:Testing performed by : [facility], [address] [place] [address] Hgb 14.7 13.0 - 17.5 g/dL [facility] Comment:Testing performed by : [facility], [address] [place] [address] Hct 45.0 38.9 - 50.3 % CERNER [facility]J Comment:Testing performed by : [facility], [address] [place] [address] Plt 266 150 - 400 K/cumm [facility] Comment:Testing performed by : [facility], [address] [place] [address] MPV 6.6(L) 6.8 - 10.4 fL C[facility]ER [facility] Comment:Testing performed by : [facility], [address] [place] [address] RBC 6.02(H) 4.30 - 5.80 M/cumm CERNER [facility]J Comment:Testing performed by : [facility], [address] [place] [address] MCV 74.8(L) 81.3 - 96.4 fL CERNER [facility]J Comment:Testing performed by : [facility], [address] [place] [address] MCH 24.5(L) 27.1 - 33.3 pg [facility] Comment:Testing performed by : [facility], [address] [place], [place] [phone] MCHC 32.7 32.3 - 35.7 g/dL [facility] Comment:Testing performed by : [facility], [address] [place], [place] [phone] RDW CV 17.0(H) 11.1 - 14.9 % [facility] Comment:Testing performed by : [facility], [address] [place], [place] [phone] NRBC abs 0.00 0.00 - 0.01 K/cumm [facility] Comment:Testing performed by : [facility], [address] [place], [place] [phone] Blood 04/07/2025 7:31 AM CDT 04/07/2025 7:34 AM CDT Sea Ocampo MD LAB BLOOD ORDERABLES Lena l Result Performing Organization Address [facility] [place]/[facility] Co de Phone Number [facility] Department of Laboratories [place] [phone] * (ABNORMAL) Reticulocyte Count (04/07/2025 7:31 AM CDT) Retics, absolute 143(H) 20 - 100 K/cumm Comment:Testing performed by : [facility], [address] [place], [place] [phone] Retics 2.4(H) 0.5 - 1.8 % [facility] Comment:Testing performed by : [facility], [address] [place], [place] [phone] Blood 04/07/2025 7:31 AM CDT 04/07/2025 7:34 AM CDT Sea Ocampo MD LAB BLOOD ORDERABLES Lena l Result Performing Organization Address City/[facility] Co de Phone Number [facility] [place] [address] * Phosphorus (04/07/2025 7:31 AM CDT) Phosphorus, pl 2.7 2.3 - 4.5 mg/dL Blood 04/07/2025 7:31 AM CDT 04/07/2025 7:36 AM CDT Sea Ocampo MD LAB BLOOD ORDERABLES Lena l Result Performing Organization Address [facility] [place]/[facility] Co de Phone Number [facility] [place] [address] * Magnesium (04/07/2025 7:31 AM CDT) Pathologist [facility] Magnesium 2.0 1.4 - 2.5 mg/dL Blood 04/07/2025 7:31 AM CDT 04/07/2025 7:36 AM CDT Sea Ocampo MD LAB BLOOD ORDERABLES Lena l Result Performing Organization Address [facility] [place]/[facility] Co de Phone Number [facility] [place] [address] * Lipase (04/07/2025 7:31 AM CDT) Pathologist [facility] Lipase 20 10 - 99 Units/L Blood 04/07/2025 7:31 AM CDT 04/07/2025 7:36 AM CDT Sea Ocampo MD LAB BLOOD ORDERABLES Lena l Result Performing Organization Address City/[facility] [place]/[facility] Co de Phone Number [facility] [place] [address] * (ABNORMAL) Lactate dehydrogenase (LD) (04/07/2025 7:31 AM CDT) Lactate dehydrogenase (LDH) 343(H) 100 - 250 Units/L Blood 04/07/2025 7:31 AM CDT 04/07/2025 7:36 AM CDT us Sea Ocampo MD LAB BLOOD ORDERABLES Lena l Result Performing Organization Address [facility] [place]/[facility] Co de Phone Number [facility] [place] [address] * Gamma GT (04/07/2025 7:31 AM CDT) Pathologist [facility] GGT 21 10 - 50 Units/L Blood 04/07/2025 7:31 AM CDT 04/07/2025 7:36 AM CDT us Sea Ocampo MD LAB BLOOD ORDERABLES Lena l Result Performing Organization Address [facility] de Phone Number [facility] [place] [address] * Bilirubin, direct (04/07/2025 7:31 AM CDT) Pathologist [facility] Bilirubin, direct <0.2 0.1 - 0.3 mg/dL Blood 04/07/2025 7:31 AM CDT 04/07/2025 7:36 AM CDT us Sea Ocampo MD LAB BLOOD ORDERABLES Lena l Result Performing Organization Address [facility] [place] [facility] Co de Phone Number [facility] [place] [place] [address] * Amylase (04/07/2025 7:31 AM CDT) Pathologist [facility] Amylase 32 30 - 99 Units/L Blood 04/07/2025 7:31 AM CDT 04/07/2025 7:36 AM CDT us Sea Ocampo MD LAB BLOOD ORDERABLES Lena grimm Result [facility] [place] [address] * (ABNORMAL) Comprehensive metabolic panel (04/07/2025 7:31 AM CDT) Sodium 136 135 - 145 mmol/L Potassium, pl 4.6 3.3 - 4.9 mmol/L [facility] Chloride 101 97 - 110 mmol/L [facility] CO2 28 22 - 32 mmol/L [facility] Anion gap 7 2 - 15 mmol/L [facility] BUN 10 6 - 25 mg/dL [facility] Creatinine 0.70(L) 0.80 - 1.30 mg/dL [facility] Glucose 125 70 - 199 mg/dL [facility] Comment: Interpretive Data Fasting glucose >/= 126 mg/dl is diagnostic for diabetes. Fasting is defined as no caloric intake for at least 8 hours. Fasting glucose between 100 mg/dl to 125 mg/dl is diagnostic of prediabetes. In a patient with classic symptoms of hyperglycemia or hyperglycemic crisis, a random glucose >/= 200 mg/dl is diagnostic for diabetes. In the absence of unequivocal hyperglycemia, results should be confirmed by repeat testing. The classification and Diagnosis of Diabetes Diabetes Care 202; 46: S19-S40. Current interpretive data was last revised 2022. Calcium 9.3 8.5 - 10.3 mg/dL [facility] Bilirubin, total 0.3 0.1 - 1.2 mg/dL [facility] Protein, pl 7.5 6.5 - 8.5 g/dL [facility] Albumin 3.5 3.5 - 5.0 g/dL [facility] Alk phos 86 40 - 130 Units/L [facility] ALT 9 7 - 55 Units/L [facility] AST 21 10 - 50 Units/L [facility] Comment:Hemolyzed; result ma y be falsely elevated Blood 04/07/2025 7:31 AM CDT 04/07/2025 7:36 AM CDT us Sea Ocampo MD LAB BLOOD ORDERABLES Lena grimm Result [facility] [place] [address] * MRI Brain W WO Contrast (04/02/2025 7:12 PM CDT) Anatomical Region Laterality Modality Head and Neck N/A Magnetic Resonan ce 04/03/2025 10:0 2 AM CDT Impressions 04/03/2025 11:04 AM CDT 1. No significant change in enhancing left frontal lobe lesion with adjacent T2 FLAIR hyperintense signal/vasogenic edema. 2. No new enhancing intracranial lesion. Dictated by: Diogo Michele M.D. The radiology attending physician has personally reviewed this study, and had reviewed and/or edited this written report and agrees with it. Electronically signed by: Ann Hawkins M.D. 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 Pre-clinical trial evaluation. TECHNIQUE: Multiplanar multi-weighted MRI of the brain and brainstem was performed without and with intravenous contrast using the general brain protocol. Contrast information: 18 mL Gadoterate Meglumine IV COMPARISON: MR 03/05/2025, 12/20/2024. FINDINGS: No significant change in rim enhancing lesion in the left frontal lobe measuring approximately 1.9 x 1.6 x 2.8 cm, previously 2.0 x 1.5 x 2.7 cm. Surrounding T2 FLAIR hyperintense signal appears similar to marginally increased from prior accounting for differences in technique, however, remains decreased from MRI on 12/20/2024. No elevated relative cerebral blood flow appreciated. No new enhancing lesion. Unchanged thinning of the right frontal scalp. The superior sagittal sinus demonstrates normal venous flow. The corpus callosum is normal in shape and signal intensity. The posterior fossa is unremarkable. The pituitary and sella are normal. The brainstem and craniocervical junction are unremarkable. Scattered nonspecific foci of T2 FLAIR hyperintense signal in the bilateral cerebral white matter, similar to prior. Unchanged right middle cranial fossa cyst. Unchanged developmental. The left frontal lobe with mild associated T2 FLAIR hyperintensity. Diffusion weighted images reveal no hyperintensities to suggest acute cerebral infarction. The susceptibility weighted sequences reveal no evidence of acute or chronic hemorrhage. The ventricles are normal in size and position without evidence of hydrocephalus. Trace mucosal thickening of the ethmoid air cells. Mild left mastoid effusion. The orbits appear normal. Normal flow voids are demonstrated in the carotid arteries and basilar artery. 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 Pre-clinical trial evaluation. TECHNIQUE: Multiplanar multi-weighted MRI of the brain and brainstem was performed without and with intravenous contrast using the general brain protocol. Contrast information: 18 mL Gadoterate Meglumine IV COMPARISON: MR 03/05/2025, 12/20/2024. FINDINGS: No significant change in rim enhancing lesion in the left frontal lobe measuring approximately 1.9 x 1.6 x 2.8 cm, previously 2.0 x 1.5 x 2.7 cm. Surrounding T2 FLAIR hyperintense signal appears similar to marginally increased from prior accounting for differences in technique, however, remains decreased from MRI on 12/20/2024. No elevated relative cerebral blood flow appreciated. No new enhancing lesion. Unchanged thinning of the right frontal scalp. The superior sagittal sinus demonstrates normal venous flow. The corpus callosum is normal in shape and signal intensity. The posterior fossa is unremarkable. The pituitary and sella are normal. The brainstem and craniocervical junction are unremarkable. Scattered nonspecific foci of T2 FLAIR hyperintense signal in the bilateral cerebral white matter, similar to prior. Unchanged right middle cranial fossa cyst. Unchanged developmental. The left frontal lobe with mild associated T2 FLAIR hyperintensity. Diffusion weighted images reveal no hyperintensities to suggest acute cerebral infarction. The susceptibility weighted sequences reveal no evidence of acute or chronic hemorrhage. The ventricles are normal in size and position without evidence of hydrocephalus. Trace mucosal thickening of the ethmoid air cells. Mild left mastoid effusion. The orbits appear normal. Normal flow voids are demonstrated in the carotid arteries and basilar artery. IMPRESSION: 1. No significant change in enhancing left frontal lobe lesion with adjacent T2 FLAIR hyperintense signal/vasogenic edema. 2. No new enhancing intracranial lesion. Dictated by: Diogo Michele M.D. The radiology attending physician has personally reviewed this study, and had reviewed and/or edited this written report and agrees with it. Electronically signed by: Ann Hawkins M.D. Rosa Maria Harris NP IMG MRI PROCEDURES Final Result * CT chest abdomen pelvis with contrast (03/31/2025 3:01 PM CDT) Anatomical Region Laterality Modality Body N/A Computed Tomogra phy 03/31/2025 3:36 PM CDT Impressions 03/31/2025 3:36 PM CDT 1. Increased size and conspicuity of bilateral left greater than right hypodense renal lesions and left perinephric nodules, which likely represent metastatic disease. Pyelonephritis considered to be less likely given interdevelopment enlargement from 03/14/2025. 2. Ill-defined left infrahilar mass with mass effect on the left mainstem bronchus and left lower lobe collapse with postobstructive consolidative change. Tree in bud nodularity seen in left upper lobe, new, and may be infectious or inflammatory. Unchanged appearance of small left pleural effusion. 3. Unchanged appearance of mediastinal, left axillary, left supraclavicular, left subpectoral lymphadenopathy. 4. Unchanged right 1st rib lesion. Electronically signed by: Sudarshan Hudson MD Narrative 03/31/2025 3:36 PM CDT EXAMINATION: Computed tomography of the chest, abdomen and pelvis with intravenous contrast HISTORY: Left upper lobe lung cancer, metastatic non-small cell lung cancer, malignant neoplasm that is metastatic to the bone. TECHNIQUE: Transaxial computed tomographic images of the chest, abdomen and pelvis were obtained with intravenous contrast according to the standard protocol after the uneventful administration of 94 mL Opti-Ray 350 intravenous contrast. COMPARISON: 03/14/2025 CT chest, abdomen, pelvis FINDINGS: Chest: There is an ill-defined hypodense left infrahilar mass measuring approximately 4.1 x 3.6 cm, not significantly changed from 03/14 2025 given difference in technique. This results in adjacent mass effect on the left mainstem bronchus with complete atelectasis of the left lower lobe. Mucous debris is seen in the left upper lobe bronchus and its branches without left upper lobe atelectasis. This mass contacts the left pulmonary artery and vein, similar to 03/14/2025. There is a small unchanged left pleural effusion. There is mild left upper lobe tree-in-bud nodularity, which may be infectious/inflammatory, it appears more pronounced from recent prior study. No suspicious right pulmonary nodule or mass. Rounded left supraclavicular lymph node measuring 1.1 cm, unchanged from prior (series 3 image 18). Unchanged left suprapectoral 1 cm lymph node (series 3 image 32). Bulky left axillary lymphadenopathy, unchanged, measuring up to 2.8 cm. Bulky mediastinal lymphadenopathy. For reference, there is an anterior right paratracheal lymph node measuring 2.3 cm, and the left lower paratracheal lymph node measuring 1.5 cm. There is a confluent conglomeration of subcarinal lymphadenopathy. The heart is normal in size. The main pulmonary artery and thoracic aorta are normal in caliber. No pericardial effusion. Coronary artery calcifications. Right internal jugular approach central venous catheter tip with tip terminating at the right atrium. Abdomen/Pelvis: The liver is normal in size and contour. No new suspicious focal hepatic lesion. Hypodensities at the gallbladder fossa, which likely reflect focal steatosis. Postsurgical changes of cholecystectomy. Mild prominence of the common bile duct, likely secondary to postcholecystectomy changes. Normal pancreas and adrenal glands. The spleen is normal in size. Unchanged splenic cysts. Enlarging left-sided retroperitoneal nodule noted, a 1 cm nodule, previously measuring 0.6 cm (series 3 image 155) as well as a 0.7 cm nodule at the inferior pole of the right kidney, unchanged. Hypodense left renal lesions are noted, increased in size from 03/14/2025, with masslike appearance of the interpolar hypodense lesion measuring 2.1 x 1.2 cm, more conspicuous from 03/14 2025. There is increased conspicuity of a right superior pole anterior hypodense lesion measuring up to 1.8 cm, more conspicuous from prior, and also likely renal metastasis. Bilateral renal cysts and too small to characterize hypoattenuating renal lesions are also noted. No hydronephrosis. Normal appearance of the urinary bladder. Normal appearance of the prostate. No pathologic bowel wall thickening or dilatation. Normal appendix. Normal appearance of the duodenojejunal sweep. No ascites or pneumoperitoneum. Mildly prominent unchanged left retroperitoneal lymph node measuring 0.7 cm in short axis dimension, attention on follow-up is recommended. Otherwise, no other evidence of abdominal or pelvic lymphadenopathy. Atherosclerotic calcifications of the abdominal aorta and its branches. The portal vein appears patent. Unchanged appearance of right 1st rib lesion. Partially visualized postsurgical changes to the proximal left humerus. Procedure Note Sudarshan Hudson MD - 03/31/2025 EXAMINATION: Computed tomography of the chest, abdomen and pelvis with intravenous contrast HISTORY: Left upper lobe lung cancer, metastatic non-small cell lung cancer, malignant neoplasm that is metastatic to the bone. TECHNIQUE: Transaxial computed tomographic images of the chest, abdomen and pelvis were obtained with intravenous contrast according to the standard protocol after the uneventful administration of 94 mL Opti-Ray 350 intravenous contrast. COMPARISON: 03/14/2025 CT chest, abdomen, pelvis FINDINGS: Chest: There is an ill-defined hypodense left infrahilar mass measuring approximately 4.1 x 3.6 cm, not significantly changed from 03/14 2025 given difference in technique. This results in adjacent mass effect on the left mainstem bronchus with complete atelectasis of the left lower lobe. Mucous debris is seen in the left upper lobe bronchus and its branches without left upper lobe atelectasis. This mass contacts the left pulmonary artery and vein, similar to 03/14/2025. There is a small unchanged left pleural effusion. There is mild left upper lobe tree-in-bud nodularity, which may be infectious/inflammatory, it appears more pronounced from recent prior study. No suspicious right pulmonary nodule or mass. Rounded left supraclavicular lymph node measuring 1.1 cm, unchanged from prior (series 3 image 18). Unchanged left suprapectoral 1 cm lymph node (series 3 image 32). Bulky left axillary lymphadenopathy, unchanged, measuring up to 2.8 cm. Bulky mediastinal lymphadenopathy. For reference, there is an anterior right paratracheal lymph node measuring 2.3 cm, and the left lower paratracheal lymph node measuring 1.5 cm. There is a confluent conglomeration of subcarinal lymphadenopathy. The heart is normal in size. The main pulmonary artery and thoracic aorta are normal in caliber. No pericardial effusion. Coronary artery calcifications. Right internal jugular approach central venous catheter tip with tip terminating at the right atrium. Abdomen/Pelvis: The liver is normal in size and contour. No new suspicious focal hepatic lesion. Hypodensities at the gallbladder fossa, which likely reflect focal steatosis. Postsurgical changes of cholecystectomy. Mild prominence of the common bile duct, likely secondary to postcholecystectomy changes. Normal pancreas and adrenal glands. The spleen is normal in size. Unchanged splenic cysts. Enlarging left-sided retroperitoneal nodule noted, a 1 cm nodule, previously measuring 0.6 cm (series 3 image 155) as well as a 0.7 cm nodule at the inferior pole of the right kidney, unchanged. Hypodense left renal lesions are noted, increased in size from 03/14/2025, with masslike appearance of the interpolar hypodense lesion measuring 2.1 x 1.2 cm, more conspicuous from 03/14 2025. There is increased conspicuity of a right superior pole anterior hypodense lesion measuring up to 1.8 cm, more conspicuous from prior, and also likely renal metastasis. Bilateral renal cysts and too small to characterize hypoattenuating renal lesions are also noted. No hydronephrosis. Normal appearance of the urinary bladder. Normal appearance of the prostate. No pathologic bowel wall thickening or dilatation. Normal appendix. Normal appearance of the duodenojejunal sweep. No ascites or pneumoperitoneum. Mildly prominent unchanged left retroperitoneal lymph node measuring 0.7 cm in short axis dimension, attention on follow-up is recommended. Otherwise, no other evidence of abdominal or pelvic lymphadenopathy. Atherosclerotic calcifications of the abdominal aorta and its branches. The portal vein appears patent. Unchanged appearance of right 1st rib lesion. Partially visualized postsurgical changes to the proximal left humerus. IMPRESSION: 1. Increased size and conspicuity of bilateral left greater than right hypodense renal lesions and left perinephric nodules, which likely represent metastatic disease. Pyelonephritis considered to be less likely given interdevelopment enlargement from 03/14/2025. 2. Ill-defined left infrahilar mass with mass effect on the left mainstem bronchus and left lower lobe collapse with postobstructive consolidative change. Tree in bud nodularity seen in left upper lobe, new, and may be infectious or inflammatory. Unchanged appearance of small left pleural effusion. 3. Unchanged appearance of mediastinal, left axillary, left supraclavicular, left subpectoral lymphadenopathy. 4. Unchanged right 1st rib lesion. Electronically signed by: Sudarshan Hudson MD Rosa Maria Harris NP IMG CT PROCEDURES Final R esult * CT Humerus Left W Contrast (03/31/2025 3:01 PM CDT) Anatomical Region Laterality Modality Upper Extremities Left Computed Tomog denilson 03/31/2025 3:53 PM CDT Impressions 03/31/2025 4:12 PM CDT 1. Probable slight interval increase in size of a left deltoid mass which extends to the level of the skin. 2. Stable postsurgical changes of the left proximal humerus. There is possible ill-defined soft tissue surrounding the proximal humerus which may be increased from the prior examination, though precise evaluation is difficult due to extensive streak artifact. 3. Unchanged left axillary lymphadenopathy. Dictated by: Christophe Espinosa MD The radiology attending physician has personally reviewed this study, and had reviewed and/or edited this written report and agrees with it. Electronically signed by: Lester Landis M.D. Narrative 03/31/2025 4:12 PM CDT EXAMINATION: CT HUMERUS LEFT W CONTRAST HISTORY: Metastatic lung cancer TECHNIQUE: Transaxial computed tomographic images of the left humerus were obtained with intravenous contrast according to the standard protocol after the uneventful administration of 94 mL Opti-Ray 350 intravenous contrast. COMPARISON: 03/14/2025 and 03/04/2025 FINDINGS: The patient is status post curettage, cementation, and internal fixation of the left humerus with multiple plate and screw constructs. There is unchanged the appearance of the bone with areas of cortical loss and irregularity cortical irregularity at the posterior and medial margins of the proximal humerus. There are areas of possible ill-defined soft tissue, for example on series 4 image 75, anterior and medial to the humerus which may be increased from the prior examination, though precise evaluation is difficult due to extensive streak artifact which persists despite use of metal artifact reduction. There is a redemonstrated ill-defined mass within the left deltoid muscle extending into the subcutaneous tissues and essentially to the level of the skin. The mass is difficult to accurately measure it is difficult to accurately compare due to differences in positioning but appears slightly increased in size compared to prior, measuring approximately 5.0 x 5.3 cm on series 8 image 48 compared to approximately 4.5 x 4.5 cm previously. There are multiple enlarged left axillary lymph nodes, some which are centrally necrotic. These measure up to 3.1 cm and are nonspecific substantially changed from the prior examination, but differences in positioning. Included portions of the left hemithorax will also be better evaluated on the simultaneously performed CT of the chest. There is diffuse subcutaneous edema and skin thickening associated with the distal left upper arm as well as the imaged portions of the left forearm. These findings are similar to the prior examination. No organized fluid collection. Procedure Note Lester Landis MD PhD - 03/31/2025 EXAMINATION: CT HUMERUS LEFT W CONTRAST HISTORY: Metastatic lung cancer TECHNIQUE: Transaxial computed tomographic images of the left humerus were obtained with intravenous contrast according to the standard protocol after the uneventful administration of 94 mL Opti-Ray 350 intravenous contrast. COMPARISON: 03/14/2025 and 03/04/2025 FINDINGS: The patient is status post curettage, cementation, and internal fixation of the left humerus with multiple plate and screw constructs. There is unchanged the appearance of the bone with areas of cortical loss and irregularity cortical irregularity at the posterior and medial margins of the proximal humerus. There are areas of possible ill-defined soft tissue, for example on series 4 image 75, anterior and medial to the humerus which may be increased from the prior examination, though precise evaluation is difficult due to extensive streak artifact which persists despite use of metal artifact reduction. There is a redemonstrated ill-defined mass within the left deltoid muscle extending into the subcutaneous tissues and essentially to the level of the skin. The mass is difficult to accurately measure it is difficult to accurately compare due to differences in positioning but appears slightly increased in size compared to prior, measuring approximately 5.0 x 5.3 cm on series 8 image 48 compared to approximately 4.5 x 4.5 cm previously. There are multiple enlarged left axillary lymph nodes, some which are centrally necrotic. These measure up to 3.1 cm and are nonspecific substantially changed from the prior examination, but differences in positioning. Included portions of the left hemithorax will also be better evaluated on the simultaneously performed CT of the chest. There is diffuse subcutaneous edema and skin thickening associated with the distal left upper arm as well as the imaged portions of the left forearm. These findings are similar to the prior examination. No organized fluid collection. IMPRESSION: 1. Probable slight interval increase in size of a left deltoid mass which extends to the level of the skin. 2. Stable postsurgical changes of the left proximal humerus. There is possible ill-defined soft tissue surrounding the proximal humerus which may be increased from the prior examination, though precise evaluation is difficult due to extensive streak artifact. 3. Unchanged left axillary lymphadenopathy. Dictated by: Christophe Espinosa MD The radiology attending physician has personally reviewed this study, and had reviewed and/or edited this written report and agrees with it. Electronically signed by: Lester Landis M.D. Rosa Maria Harris [facility] OIL[facility] IMG CT PROCEDURES Final R esult * (ABNORMAL) Urinalysis reflex to microscopic (03/31/2025 1:18 PM CDT) Color, ur Straw Yellow Clarity, ur Clear Clear [facility] Specific gravity, ur 1.023 1.003 - 1.030 [facility] pH, urine 6.0 [facility] Comment: Interpretive Data U rine pH is affected by diet, medications, systemic acid-base disturbances, and renal tubular function. pH may affect urinary stone formation. For example, urine pH below 6.0 may help reduce the tendency for calcium phosphate stones and pH greater than 6.0 may reduce the tendency for uric acid stone formation. Source: [employer] Current Interpretive Data was last revised on 2017 Protein, ur ql 1+(A) Negative [facility] Glucose, ur ql 4+(A) Negative [facility] Ketones, ur Negative Negative [facility] Bilirubin, ur Negative Negative [facility] Blood, ur Negative Negative [facility] Urobilinogen, ur <2.0 <2.0 mg/dL [facility] Nitrite, ur Negative Negative [facility] Leukocyte esterase, ur Negative [facility] UA reflex comment Reflex to microscopic UA will be performed. [facility] Urine 03/31/2025 1:18 PM CDT 03/31/2025 1:18 PM CDT Rosa Maria Harris BREAK[facility] OILER LAB URINE ORDERABLES Lena l Result Performing Organization Address City/[facility]/ZIP Co de Phone Number [facility] [place] [address] * Urinalysis, microscopic only (03/31/2025 1:18 PM CDT) WBC, ur 0-5 0 - 5 /HPF RBC, ur 0-2 0 - 2 /HPF [facility] Epithelial cells, squamous, ur 1-5 0 - 5 /HPF [facility] Urine 03/31/2025 1:18 PM CDT 03/31/2025 1:18 PM CDT Rosa Maria Harris [facility] LAB URINE ORDERABLES Lena l Result Performing Organization Address City/[facility]/ZIP Co de Phone Number [facility] [place] [address] * eGFR (03/31/2025 1:09 PM CDT) eGFR >90 >=60 mL/min/1. 73 m2 Comment: Interpretive Data Reference Interval Normal >/= 90 mL/min/1.73m2 Mildly decreased* 60 - 89 mL/min/1.73m2 Mildly to moderately decreased 45 - 59 mL/min/1.73m2 Moderately to severely decreased 30 - 44 mL/min/1.73m2 Severely decreased 15 - 29 mL/min/1.73m2 Kidney Failure < 15 mL/min/1.73m2 *Relative to young adult level Estimated glomerular filtration rate is determined by the 2020 CKD-EPI equation recommended by the National Kidney Foundation (A Unifying Approach to GFR Estimation: Recommendations of the NKF-ASK Task Force on Reassessing the Inclusion of Race in Diagnosing Kidney Disease, JASN 2020). The CKD-EPI equation should not be used for patients with unstable renal function and has not been validated in children and those over 70. Current interpretive data was last reviewed 2021. Blood 03/31/2025 1:09 PM CDT 03/31/2025 1:15 PM CDT us Rosa Maria Harris [facility]AK[facility] OILER LAB BLOOD ORDERABLES Lena grimm Result [facility] [place] [address] * (ABNORMAL) Differential, auto (03/31/2025 1:09 PM CDT) Neutrophil abs 9.69(H) 1.50 - 6.50 K/cumm Comment:Testing performed by : [facility], [address] [place], [place] [phone] Lymphocyte abs 1.67 0.80 - 3.30 K/cumm C[facility]ER [facility] Comment:Testing performed by : [facility], [address] [place] [phone] Monocyte abs 0.54 0.20 - 0.80 K/cumm C[facility]ER [facility] Comment:Testing performed by : [facility], [address] [place] [phone] Eosinophil abs 0.20 0.00 - 0.50 K/cumm C[facility]ER [facility] Comment:Testing performed by : [facility], [address] [place] [phone] Basophil abs 0.09 0.00 - 0.10 K/cumm C[facility]ER [facility] Comment:Testing performed by : [facility], [address] [place] [phone] Neutrophil pct 79.5 % [facility] Comment: Interpretive Data Percent cell count reference ranges are not reported, since discordance with absolute values may lead to misinterpretation of CBC data. Current Interpretive Data was last revised on 2017. Testing performed by: [facility], [address] [place] [phone] Lymphocyte pct 13.7 % [facility] Comment: Interpretive Data Percent cell count reference ranges are not reported, since discordance with absolute values may lead to misinterpretation of CBC data. Current Interpretive Data was last revised on 2017. Testing performed by: [facility], [address] [place] [phone] Monocyte pct 4.5 % [facility] Comment: Interpretive Data Percent cell count reference ranges are not reported, since discordance with absolute values may lead to misinterpretation of CBC data. Current Interpretive Data was last revised on 2017. Testing performed by: [facility], [address] [place] [phone] Eosinophil pct 1.6 % [facility] Comment: Interpretive Data Percent cell count reference ranges are not reported, since discordance with absolute values may lead to misinterpretation of CBC data. Current Interpretive Data was last revised on 2017. Testing performed by: [facility], [address] [place] [phone] Basophil pct 0.7 % [facility] C[facility] Comment: Interpretive Data Percent cell count reference ranges are not reported, since discordance with absolute values may lead to misinterpretation of CBC data. Current Interpretive Data was last revised on 2017. Testing performed by: [facility], [address] [place] [phone] Blood 03/31/2025 1:09 PM CDT 03/31/2025 1:14 PM CDT us Rosa Maria Harris [facility] OILER LAB BLOOD ORDERABLES Lena l Result [facility]IN C[facility] [place] [address] * (ABNORMAL) CBC with auto differential (03/31/2025 1:09 PM CDT) WBC 12.19(H) 3.80 - 9.90 K/cumm Comment:Testing performed by : [facility], [address] [place] [address] Hgb 15.0 13.0 - 17.5 g/dL C[facility]ER [facility] Comment:Testing performed by : [facility], [address] [place] [address] Hct 44.7 38.9 - 50.3 % [facility] Comment:Testing performed by : [facility], [address] [place], [place] [phone] Plt 236 150 - 400 K/cumm C[facility]ER [facility]J Comment:Testing performed by : [facility], [address] [place] [address] MPV 6.5(L) 6.8 - 10.4 fL [facility]ER [facility]J Comment:Testing performed by : [facility], [address] [place], [place] [phone] RBC 5.95(H) 4.30 - 5.80 M/cumm CERNER BJ Comment:Testing performed by : [facility], [address] [place] [address] MCV 75.0(L) 81.3 - 96.4 fL C[facility]ER BJ Comment:Testing performed by : [facility], [address] [place], [place] [phone] MCH 25.1(L) 27.1 - 33.3 pg C[facility]ER BJ Comment:Testing performed by : [facility], [address] [place] [address] MCHC 33.5 32.3 - 35.7 g/dL C[facility]ER [facility]J Comment:Testing performed by : [facility], [address] [place] [address] RDW CV 16.8(H) 11.1 - 14.9 % [facility]ER [facility] Comment:Testing performed by : [facility], [address] [place] [address] NRBC abs 0.00 0.00 - 0.01 K/cumm C[facility]ER [facility]J Comment:Testing performed by : [facility], [address] [place] [address] Blood 03/31/2025 1:09 PM CDT 03/31/2025 1:14 PM CDT Rosa Maria Harris BREAK[facility] OILER LAB BLOOD ORDERABLES Lena l Result Performing Organization Address [facility] Co de Phone Number [facility] [place] [address] * Hepatitis C antibody Blood (03/31/2025 1:09 PM CDT) Hep C Ab Nonreactive Nonreactive Comment:Antibodies to HCV no t detected. Does NOT exclude the possibility of recent exposure to HCV. Current interpretive data was last revised on 22 Blood 03/31/2025 1:09 PM CDT 03/31/2025 2:14 PM CDT Rosa Maria Harris NP LAB MICROBIOLOGY - GENERA L ORDERABLES Final Result Performing Organization Address [facility] Co de Phone Number [facility] [place] [address] * Hepatitis B Surface Antigen Blood (03/31/2025 1:09 PM CDT) Pathologist [facility] HepBsAg Nonreactive Nonreactive Blood 03/31/2025 1:09 PM CDT 03/31/2025 2:14 PM CDT Rosa Maria Harris BREAK[facility] OILER LAB MICROBIOLOGY - GENERA L ORDERABLES Final Result Performing Organization Address City/[facility] Co de Phone Number [facility] [place] [address] * aPTT (03/31/2025 1:09 PM CDT) aPTT 30 26 - 38 sec Comment: Interpretive Data Heparin therapeutic range: 66.0 - 100.0 seconds. Range based on correlation with therapeutic heparin activity range of 0.3 - 0.7 Units/mL. Current interpretive data was last revised on 2023. Blood 03/31/2025 1:09 PM CDT 03/31/2025 1:39 PM CDT Rosa Maria Harris BREAK[facility] OILER LAB BLOOD ORDERABLES Lena l Result Performing Organization Address [facility] Co de Phone Number [facility] [place] [address] * Protime-INR (03/31/2025 1:09 PM CDT) PT 12.7 10.2 - 13.5 sec INR 1.13 0.90 - 1.20 [facility] Comment: Interpretive data Oral anticoagulant therapeutic ranges: Venous thromboembolism prophylaxis or treatment: 2.0-3.0 CARDIOLOGY Standard range: 2.0-3.0 High-intensity range: 2.5-3.5 Refer to indication-specific guidelines for appropriate target ranges for prosthetic heart valve replacement. Current interpretive data was last revised on 2019. Blood 03/31/2025 1:09 PM CDT 03/31/2025 1:39 PM CDT Rosa Maria Harris BREAKER OILER LAB BLOOD ORDERABLES Lena l Result Performing Organization Address [facility] Co de Phone Number [facility] [place] [address] * (ABNORMAL) Reticulocyte Count (03/31/2025 1:09 PM CDT) Retics, absolute 128(H) 20 - 100 K/cumm Comment:Testing performed by : [facility], [address] [place] [phone] Retics 2.2(H) 0.5 - 1.8 % [facility] Comment:Testing performed by : [facility], [address] [place] [phone] Blood 03/31/2025 1:09 PM CDT 03/31/2025 1:14 PM CDT us Rosa Maria Harris BREAKER OILER LAB BLOOD ORDERABLES Lena l Result Performing Organization Address [facility] de Phone Number [facility] [place] [address] * (ABNORMAL) CRP (acute phase) (03/31/2025 1:09 PM CDT) CRP 61.2(H) <=10.0 mg/L Comment:Repeated on Dilution Blood 03/31/2025 1:09 PM CDT 03/31/2025 2:23 PM CDT us Rosa Maria Harris BREAKER OILER LAB BLOOD ORDERABLES Lena l Result Performing Organization Address [facility] de Phone Number [facility] [place] [address] * TSH (03/31/2025 1:09 PM CDT) Pathologist [facility] Thyroid Stimulating Hormone 1.37 0.30 - 4.20 mcIUnit/mL Blood 03/31/2025 1:09 PM CDT 03/31/2025 1:15 PM CDT us Rosa Maria Harris BREAKER OILER LAB BLOOD ORDERABLES Lena l Result Performing Organization Address [facility] de Phone Number [facility] [place] [address] * T4, free (03/31/2025 1:09 PM CDT) Pathologist [facility] Free T4 1.18 0.90 - 1.70 ng/dL Blood 03/31/2025 1:09 PM CDT 03/31/2025 1:15 PM CDT us Rosa Maria Harris BREAKER OILER LAB BLOOD ORDERABLES Lena l Result [facility] [place] [address] * (ABNORMAL) Phosphorus (03/31/2025 1:09 PM CDT) Phosphorus, pl 2.2(L) 2.3 - 4.5 mg/dL Blood 03/31/2025 1:09 PM CDT 03/31/2025 1:15 PM CDT Rosa Maria Harris BREAKER OILER LAB BLOOD ORDERABLES Lena l Result Performing Organization Address [facility] Co de Phone Number [facility] [place] [address] * Magnesium (03/31/2025 1:09 PM CDT) Magnesium 2.1 1.4 - 2.5 mg/dL Blood 03/31/2025 1:09 PM CDT 03/31/2025 1:15 PM CDT Rosa Maria Harris BREAKER OILER LAB BLOOD ORDERABLES Lena l Result Performing Organization Address City/[facility] Co de Phone Number [facility] [place] [address] * Lipase (03/31/2025 1:09 PM CDT) Lipase 16 10 - 99 Units/L Blood 03/31/2025 1:09 PM CDT 03/31/2025 1:15 PM CDT Rosa Maria Harris BREAKER OILER LAB BLOOD ORDERABLES Lena l Result [facility] [place] [address] * (ABNORMAL) Lactate dehydrogenase (LD) (03/31/2025 1:09 PM CDT) Pathologist [facility] Lactate dehydrogenase (LDH) 340(H) 100 - 250 Units/L Blood 03/31/2025 1:09 PM CDT 03/31/2025 1:15 PM CDT Rosa Maria Harris BREAKER OILER LAB BLOOD ORDERABLES Lena l Result [facility] [place] [address] * Gamma GT (03/31/2025 1:09 PM CDT) Pathologist [facility] GGT 24 10 - 50 Units/L Blood 03/31/2025 1:09 PM CDT 03/31/2025 1:15 PM CDT Rosa Maria Harris BREAKER OILER LAB BLOOD ORDERABLES Lena l Result Performing Organization Address City/[facility]/ZIP Co de Phone Number [facility] [address] * Bilirubin, direct (03/31/2025 1:09 PM CDT) Pathologist [facility] Bilirubin, direct <0.2 0.1 - 0.3 mg/dL Blood 03/31/2025 1:09 PM CDT 03/31/2025 1:15 PM CDT Rosa Maria Harris BREAKER OILER LAB BLOOD ORDERABLES Lena l Result [facility] [place] [address] * Amylase (03/31/2025 1:09 PM CDT) Pathologist [facility] Amylase 37 30 - 99 Units/L Blood 03/31/2025 1:09 PM CDT 03/31/2025 1:15 PM CDT us Rosa Maria Harris BREAKER OILER LAB BLOOD ORDERABLES Lena grimm Result [facility] [place] [address] * (ABNORMAL) Comprehensive metabolic panel (03/31/2025 1:09 PM CDT) Sodium 133(L) 135 - 145 mmol/L Potassium, pl 4.2 3.3 - 4.9 mmol/L [facility] Chloride 97 97 - 110 mmol/L [facility]ER [facility] CO2 26 22 - 32 mmol/L [facility] Anion gap 10 2 - 15 mmol/L [facility] BUN 9 6 - 25 mg/dL [facility] Creatinine 0.81 0.80 - 1.30 mg/dL [facility] Glucose 133 70 - 199 mg/dL [facility] Comment: Interpretive Data Fasting glucose >/= 126 mg/dl is diagnostic for diabetes. Fasting is defined as no caloric intake for at least 8 hours. Fasting glucose between 100 mg/dl to 125 mg/dl is diagnostic of prediabetes. In a patient with classic symptoms of hyperglycemia or hyperglycemic crisis, a random glucose >/= 200 mg/dl is diagnostic for diabetes. In the absence of unequivocal hyperglycemia, results should be confirmed by repeat testing. The classification and Diagnosis of Diabetes Diabetes Care 202; 46: S19-S40. Current interpretive data was last revised 2022. Calcium 9.1 8.5 - 10.3 mg/dL [facility] Bilirubin, total 0.4 0.1 - 1.2 mg/dL [facility] Protein, pl 7.6 6.5 - 8.5 g/dL [facility] Albumin 3.6 3.5 - 5.0 g/dL [facility] Alk phos 96 40 - 130 Units/L [facility] ALT 9 7 - 55 Units/L [facility] AST 23 10 - 50 Units/L [facility] Blood 03/31/2025 1:09 PM CDT 03/31/2025 1:15 PM CDT us Rosa Maria Harris BREAKER OILER LAB BLOOD ORDERABLES Lena l Result Performing Organization Address City/[facility]/ZIP Co de Phone Number [facility] [place] [address] * eGFR (03/20/2025 9:07 AM CDT) Pathologist [facility] eGFR 86 >=60 mL/min/1. 73 m2 Comment: Interpretive Data Reference Interval Normal >/= 90 mL/min/1.73m2 Mildly decreased* 60 - 89 mL/min/1.73m2 Mildly to moderately decreased 45 - 59 mL/min/1.73m2 Moderately to severely decreased 30 - 44 mL/min/1.73m2 Severely decreased 15 - 29 mL/min/1.73m2 Kidney Failure < 15 mL/min/1.73m2 *Relative to young adult level Estimated glomerular filtration rate is determined by the 2020 CKD-EPI equation recommended by the National Kidney Foundation (A Unifying Approach to GFR Estimation: Recommendations of the NKF-ASK Task Force on Reassessing the Inclusion of Race in Diagnosing Kidney Disease, JASN 2020). The CKD-EPI equation should not be used for patients with unstable renal function and has not been validated in children and those over 70. Current interpretive data was last reviewed 2021. Blood 03/20/2025 9:07 AM CDT 03/20/2025 9:21 AM CDT us Sea Ocampo MD LAB BLOOD ORDERABLES Lena l Result BENJAMIN [facility] [place] [address] * (ABNORMAL) Differential, auto (03/20/2025 9:07 AM CDT) Neutrophil abs 6.55(H) 1.50 - 6.50 K/cumm Comment:Testing performed by : [facility], [address] [place] [phone] Lymphocyte abs 3.73(H) 0.80 - 3.30 K/cumm [facility] Comment:Testing performed by : [facility], [address] [place] [phone] Monocyte abs 0.64 0.20 - 0.80 K/cumm [facility] Comment:Testing performed by : [facility], [address] [place], [place] [phone] Eosinophil abs 0.43 0.00 - 0.50 K/cumm [facility] Comment:Testing performed by : [facility], [address] [place] [phone] Basophil abs 0.17(H) 0.00 - 0.10 K/cumm [facility] Comment:Testing performed by : [facility], [address] [place], [place] [phone] Neutrophil pct 56.8 % [facility] Comment: Interpretive Data Percent cell count reference ranges are not reported, since discordance with absolute values may lead to misinterpretation of CBC data. Current Interpretive Data was last revised on 2017. Testing performed by: [facility], [address] [place] [phone] Lymphocyte pct 32.4 % [facility] Comment: Interpretive Data Percent cell count reference ranges are not reported, since discordance with absolute values may lead to misinterpretation of CBC data. Current Interpretive Data was last revised on 2017. Testing performed by: [facility], [address] [place] [phone] Monocyte pct 5.6 % [facility] Comment: Interpretive Data Percent cell count reference ranges are not reported, since discordance with absolute values may lead to misinterpretation of CBC data. Current Interpretive Data was last revised on 2017. Testing performed by: [facility], [address] [place] [phone] Eosinophil pct 3.8 % [facility] Comment: Interpretive Data Percent cell count reference ranges are not reported, since discordance with absolute values may lead to misinterpretation of CBC data. Current Interpretive Data was last revised on 2017. Testing performed by: [facility], [address] [place] [phone] Basophil pct 1.5 % BENJAMIN CARRION Comment: Interpretive Data Percent cell count reference ranges are not reported, since discordance with absolute values may lead to misinterpretation of CBC data. Current Interpretive Data was last revised on 2017. Testing performed by: [facility], [address] [place] [phone] Blood 03/20/2025 9:07 AM CDT 03/20/2025 9:15 AM CDT Sea Ocampo MD LAB BLOOD ORDERABLES Lena l Result Performing Organization Address City/[facility]/ZIP Co de Phone Number [facility] [place] [address] * (ABNORMAL) Thyroid Function [place] (03/20/2025 9:07 AM CDT) TSH 9.13(H) 0.30 - 4.20 mcIUnit/mL Blood 03/20/2025 9:07 AM CDT 03/20/2025 9:21 AM CDT Sea Ocampo MD LAB BLOOD ORDERABLES Lena l Result Performing Organization Address City/[facility]/ZIP Co de Phone Number [facility] [place] [address] * (ABNORMAL) CBC with auto differential (03/20/2025 9:07 AM CDT) WBC 11.53(H) 3.80 - 9.90 K/cumm Comment:Testing performed by : [facility], [address] [place] [phone] Hgb 15.6 13.0 - 17.5 g/dL [facility]JAMIN CARRION Comment:Testing performed by : [facility], [address] [place] [address] Hct 48.7 38.9 - 50.3 % [facility]ER [facility] Comment:Testing performed by : [facility], [address] [place] [address] Plt 250 150 - 400 K/cumm C[facility]ER [facility]J Comment:Testing performed by : [facility], [address] [place] [address] MPV 7.0 6.8 - 10.4 fL [facility] Comment:Testing performed by : [facility], [address] [place], [place] [phone] RBC 6.30(H) 4.30 - 5.80 M/cumm CERNER BJ Comment:Testing performed by : [facility], [address] [place], [place] [phone] MCV 77.4(L) 81.3 - 96.4 fL [facility] Comment:Testing performed by : [facility], [address] [place] [address] MCH 24.7(L) 27.1 - 33.3 pg [facility] Comment:Testing performed by : [facility], [address] [place] [address] MCHC 32.0(L) 32.3 - 35.7 g/dL [facility] Comment:Testing performed by : [facility] [facility], [address] [place] [address] RDW CV 16.7(H) 11.1 - 14.9 % CERNER BJ Comment:Testing performed by : [facility], [address] [place] [address] NRBC abs 0.00 0.00 - 0.01 K/cumm CERNER BJ Comment:Testing performed by : [facility], [address] [place] [address] Blood 03/20/2025 9:07 AM CDT 03/20/2025 9:15 AM CDT Sea Ocampo MD LAB BLOOD ORDERABLES Lena l Result Performing Organization Address [facility] Co de Phone Number [facility] [place] [address] * (ABNORMAL) aPTT (03/20/2025 9:07 AM CDT) aPTT 56(H) 26 - 38 sec Comment: Interpretive Data Heparin therapeutic range: 66.0 - 100.0 seconds. Range based on correlation with therapeutic heparin activity range of 0.3 - 0.7 Units/mL. Current interpretive data was last revised on 2023. Blood 03/20/2025 9:07 AM CDT 03/20/2025 9:45 AM CDT Sea Ocampo MD LAB BLOOD ORDERABLES Lena l Result Performing Organization Address [facility] de Phone Number [facility] [place] [address] * Protime-INR (03/20/2025 9:07 AM CDT) PT 11.2 10.2 - 13.5 sec INR 0.99 0.90 - 1.20 [facility] Comment: Interpretive data Oral anticoagulant therapeutic ranges: Venous thromboembolism prophylaxis or treatment: 2.0-3.0 CARDIOLOGY Standard range: 2.0-3.0 High-intensity range: 2.5-3.5 Refer to indication-specific guidelines for appropriate target ranges for prosthetic heart valve replacement. Current interpretive data was last revised on 2019. Blood 03/20/2025 9:07 AM CDT 03/20/2025 9:45 AM CDT Sea Ocampo MD LAB BLOOD ORDERABLES Lena l Result Performing Organization Address [facility] Co de Phone Number [facility] [place] [address] * (ABNORMAL) Reticulocyte Count (03/20/2025 9:07 AM CDT) Retics, absolute 107(H) 20 - 100 K/cumm Comment:Testing performed by : [facility], [address] [place] [phone] Retics 1.7 0.5 - 1.8 % [facility] Comment:Testing performed by : [facility], [address] [place] [id number] Blood 03/20/2025 9:07 AM CDT 03/20/2025 9:15 AM CDT us Sea Ocampo MD LAB BLOOD ORDERABLES Lena l Result Performing Organization Address City/[facility]/ZIP Co de Phone Number [facility] [place] [address] * (ABNORMAL) CRP (acute phase) (03/20/2025 9:07 AM CDT) [facility] CRP 13.3(H) <=10.0 mg/L Blood 03/20/2025 9:07 AM CDT 03/20/2025 9:45 AM CDT us Sea Ocampo MD LAB BLOOD ORDERABLES Lena l Result [facility] [place] [address] * Uric acid (03/20/2025 9:07 AM CDT) [facility] Uric acid 4.1 3.0 - 8.0 mg/dL Blood 03/20/2025 9:07 AM CDT 03/20/2025 9:21 AM CDT us Sea Ocampo MD LAB BLOOD ORDERABLES Lena l Result Performing Organization Address City/[facility]/ZIP Co de [place] [address] * T4, free (03/20/2025 9:07 AM CDT) Free T4 1.15 0.90 - 1.70 ng/dL Blood 03/20/2025 9:07 AM CDT 03/20/2025 9:21 AM CDT Narrative [facility] - 03/20/2025 10:13 AM CDT This test was reflexed from a TSH result. us Sea Ocampo MD LAB BLOOD ORDERABLES [place] [address] * Phosphorus (03/20/2025 9:07 AM CDT) Pathologist [facility] Phosphorus, pl 3.9 2.3 - 4.5 mg/dL Blood 03/20/2025 9:07 AM CDT 03/20/2025 9:21 AM CDT us Sea Ocampo MD LAB BLOOD ORDERABLES Lena l Result [facility] [place] [address] * Magnesium (03/20/2025 9:07 AM CDT) [facility] Magnesium 1.9 1.4 - 2.5 mg/dL Blood 03/20/2025 9:07 AM CDT 03/20/2025 9:21 AM CDT us Sea Ocampo MD LAB BLOOD ORDERABLES Lena l Result [facility] [place] [address] * Lipase (03/20/2025 9:07 AM CDT) Lipase 20 10 - 99 Units/L Blood 03/20/2025 9:07 AM CDT 03/20/2025 9:21 AM CDT Sea Ocampo MD LAB BLOOD ORDERABLES Lena l Result [facility] [place] [address] * Lactate dehydrogenase (LD) (03/20/2025 9:07 AM CDT) Pathologist [facility] Lactate dehydrogenase (LDH) 219 100 - 250 Units/L Blood 03/20/2025 9:07 AM CDT 03/20/2025 9:21 AM CDT Sea Ocampo MD LAB BLOOD ORDERABLES Lena l Result Performing Organization Address City/[facility]/ZIP Co de Phone Number [facility] [place] [address] * Ferritin (03/20/2025 9:07 AM CDT) Pathologist [facility] Ferritin 71 30 - 400 ng/mL Blood 03/20/2025 9:07 AM CDT 03/20/2025 9:21 AM CDT Sea Ocampo MD LAB BLOOD ORDERABLES Lena l Result Performing Organization Address City/[facility]/ZIP Co de Phone Number [facility] [place] [address] * Bilirubin, direct (03/20/2025 9:07 AM CDT) Bilirubin, direct <0.2 0.1 - 0.3 mg/dL Blood 03/20/2025 9:07 AM CDT 03/20/2025 9:21 AM CDT Sea Ocampo MD LAB BLOOD ORDERABLES Lena l Result Performing Organization Address City/[facility]/ZIP Co de Phone Number [facility] [place] [address] * Amylase (03/20/2025 9:07 AM CDT) Pathologist [facility] Amylase 36 30 - 99 Units/L Blood 03/20/2025 9:07 AM CDT 03/20/2025 9:21 AM CDT Sea Ocampo MD LAB BLOOD ORDERABLES Lena l Result Performing Organization Address [facility] de Phone Number [facility] [place] [address] * (ABNORMAL) Comprehensive metabolic panel (03/20/2025 9:07 AM CDT) [facility] Sodium 138 135 - 145 mmol/L Potassium, pl 4.0 3.3 - 4.9 mmol/L [facility] Chloride 101 97 - 110 mmol/L [facility] CO2 28 22 - 32 mmol/L [facility] Anion gap 9 2 - 15 mmol/L [facility] BUN 17 6 - 25 mg/dL [facility] Creatinine 1.00 0.80 - 1.30 mg/dL [facility] Glucose 96 70 - 199 mg/dL [facility] Comment: Interpretive Data Fasting glucose >/= 126 mg/dl is diagnostic for diabetes. Fasting is defined as no caloric intake for at least 8 hours. Fasting glucose between 100 mg/dl to 125 mg/dl is diagnostic of prediabetes. In a patient with classic symptoms of hyperglycemia or hyperglycemic crisis, a random glucose >/= 200 mg/dl is diagnostic for diabetes. In the absence of unequivocal hyperglycemia, results should be confirmed by repeat testing. The classification and Diagnosis of Diabetes Diabetes Care 2021; 46: S19-S40. Current interpretive data was last revised 2022. Calcium 11.9(H) 8.5 - 10.3 mg/dL CERNER BJ Bilirubin, total 0.3 0.1 - 1.2 mg/dL CERNER BJ Protein, pl 7.7 6.5 - 8.5 g/dL [facility] Albumin 3.6 3.5 - 5.0 g/dL CERNER BJ Alk phos 97 40 - 130 Units/L CERNER BJ ALT 11 7 - 55 Units/L CERNER BJ AST 19 10 - 50 Units/L CERNER BJ Blood 03/20/2025 9:07 AM CDT 03/20/2025 9:21 AM CDT us Sea Ocampo MD LAB BLOOD ORDERABLES Lena grimm Result [facility] [place] [address] * IR Injection Anesthetic Agent Stellate Ganglion (03/18/2025 4:14 PM CDT) Anatomical Region Laterality Modality Computed Tomogra phy 03/18/2025 5:36 PM CDT Impressions 03/18/2025 5:36 PM CDT 1. Left stellate ganglion block under CT guidance. 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 ATTENDING PRESENCE: Dr. Lion Kim MD, the attending radiologist, was present from the beginning to the end of the procedure. Dr. Salomon Elizabeth MD (residential program director) was present and participated in the procedure. Amber MEJIA (radiology BHARAT) was present and participated in the procedure. SEDATION: The patient did not require conscious sedation for the procedure. TECHNIQUE: The risks, benefits and alternatives were discussed and informed consent was obtained. Prior to beginning the procedure, Willard Protocol was performed to confirm the patient's identity and the planned procedure. Sterile barriers used during the procedure included cap, mask, hand hygiene, sterile gloves, and sterile drape. Chloraprep was used for cutaneous antisepsis. The patient was placed supine on the CT table. The left stellate ganglion was localized with CT guidance. Local anesthesia was achieved with subcutaneous injection of 1% lidocaine 2 mL. A 22-gauge needle was then introduced into the region of the ganglion under CT guidance. 4 mL of of Omnipaque-300 was injected to confirm appropriate, nonvascular position with contrast pooling at the junction of the posterior 1st rib and the longus coli fascia. 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 1 mL of 10 mg/mL dexamethasone was then injected. The needle was removed. The skin was cleansed with hydrogen peroxide, and a bandage was placed. Complication: None Type: NONE ESTIMATED BLOOD LOSS: None CONDITION: Stable condition. DISCHARGED TO: Home FINDINGS: CT images confirm appropriate position of the needle tip. Postprocedural images demonstrate displacement of the previously seen contrast at the location of the stellate ganglion by the local anesthetic and dexamethasone mixture. Partially visualized right infraspinatus lipoma. The patient reported complete relief of left upper extremity pain at the end of the procedure. 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 ATTENDING PRESENCE: Dr. Lion Kim MD, the attending radiologist, was present from the beginning to the end of the procedure. Dr. Salomon Elizabeth MD (residential program director) was present and participated in the procedure. Amber MEJIA (radiology BHARAT) was present and participated in the procedure. SEDATION: The patient did not require conscious sedation for the procedure. TECHNIQUE: The risks, benefits and alternatives were discussed and informed consent was obtained. Prior to beginning the procedure, Willard Protocol was performed to confirm the patient's identity and the planned procedure. Sterile barriers used during the procedure included cap, mask, hand hygiene, sterile gloves, and sterile drape. Chloraprep was used for cutaneous antisepsis. The patient was placed supine on the CT table. The left stellate ganglion was localized with CT guidance. Local anesthesia was achieved with subcutaneous injection of 1% lidocaine 2 mL. A 22-gauge needle was then introduced into the region of the ganglion under CT guidance. 4 mL of of Omnipaque-300 was injected to confirm appropriate, nonvascular position with contrast pooling at the junction of the posterior 1st rib and the longus coli fascia. 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 1 mL of 10 mg/mL dexamethasone was then injected. The needle was removed. The skin was cleansed with hydrogen peroxide, and a bandage was placed. Complication: None Type: NONE ESTIMATED BLOOD LOSS: None CONDITION: Stable condition. DISCHARGED TO: Home FINDINGS: CT images confirm appropriate position of the needle tip. Postprocedural images demonstrate displacement of the previously seen contrast at the location of the stellate ganglion by the local anesthetic and dexamethasone mixture. Partially visualized right infraspinatus lipoma. The patient reported complete relief of left upper extremity pain at the end of the procedure. IMPRESSION: 1. Left stellate ganglion block under CT guidance. Electronically signed by: Lion Kim MD Lion Kim MD [facility] IR PROCEDURES Final Result * (ABNORMAL) Lipid panel (03/04/2025 9:40 PM CDT) Cholesterol 126 30 - 199 mg/dL Comment: Interpretive Data Ages < or = 19 years Acceptable: <170 mg/dL Borderline high: 170-199 mg/dL High: >or= 200 mg/dL Ages > or = 20 years Desirable: <200 mg/dL Borderline high: 200-239 mg/dL High: >or= 240 mg/dL Literature References: 1. Expert Panel on Integrated Guidelines for Cardiovascular Health and Risk Reduction in Children and Adolescents. Pediatrics 2011;128:S213 2. NCEP Expert Panel. Circulation 2004;110:227 Current Interpretive Data was last revised on 2018. Triglycerides 293(H) <=149 mg/dL [facility] Comment: Interpretive Data Ages < or = 9 years Acceptable: <75 mg/dL Borderline high: 75-99 mg/dL High: >or= 100 mg/dL Ages 10 to 20 years Acceptable: <90 mg/dL Borderline high: 90-129 mg/dL High: >or= 130 mg/dL Ages > or = 20 years Desirable: <150 mg/dL Borderline high: 150-199 mg/dL High: 200-499 mg/dL Very high: >or= 499 mg/dL Literature References: 1. Expert Panel on Integrated Guidelines for Cardiovascular Health and Risk Reduction in Children and Adolescents. Pediatrics 2011;128:S213 2. NCEP Expert Panel. Circulation 2004;110:227 Current Interpretive Data was last revised on 2018. HDL 27(L) >=40 mg/dL [facility] Comment: Interpretive Data Ages < or = 19 years Acceptable: >45 mg/dL Borderline low: 40-45 mg/dL Low: <40 mg/dL Ages > or = 20 years Desirable: >or= 60 mg/dL Low: <40 mg/dL Literature References: 1. Expert Panel on Integrated Guidelines for Cardiovascular Health and Risk Reduction in Children and Adolescents. Pediatrics 2011;128:S213 2. NCEP Expert Panel. Circulation 2004;110:227 Current Interpretive Data was last revised on 2018. LDL, calculated 53 <=129 mg/dL [facility] Comment: Interpretive Data Ages < or = 19 years Acceptable: <110 mg/dL Borderline high: 110-129 mg/dL High: >or= 130 mg/dL Ages > or = 20 years Optimal: <100 mg/dL Near optimal: 100-129 mg/dL Borderline high: 130-159 mg/dL High: >160 mg/dL Calculated using the Dragan LDL-C estimating equation. This equation was implemented on 2024. Prior to this date LDL-C was estimated using the Friedewald equation. Literature References: 1. Expert Panel on Integrated Guidelines for Cardiovascular Health and Risk Reduction in Children and Adolescents. Pediatrics 2011;128:S213 2. NCEP Expert Panel. Circulation 2004;110:227 3. Dragan Mitchell al. YANG Cardiol. 2020 October 24;5(5):540-548. doi: 10.1001/[email or web address].2020.0013 Current Interpretive Data was last revised on 2024. Non-HDL Cholesterol 99 mg/dL [facility] Comment: Interpretive Data Ages < or = 19 years Acceptable: <120 mg/dL Borderline high: 120-144 mg/dL High: >145 mg/dL Ages > or = 20 years When triglycerides are >200 mg/dL, Non-HDL cholesterol is a secondary target of therapy with treatment goals that are 30 mg/dL greater than the LDL cholesterol target. Literature References: 1. Expert Panel on Integrated Guidelines for Cardiovascular Health and Risk Reduction in Children and Adolescents. Pediatrics 2011;128:S213 2. NCEP Expert Panel. Circulation 2004;110:227 Current Interpretive Data was last revised on 2018. Chol/HDL ratio 5 [facility] Blood 03/04/2025 9:40 PM CDT 03/04/2025 10:01 PM CDT Narrative [facility] - 03/05/2025 9:15 AM CDT Reflex us Marty Sibley MD LAB BLOOD ORDERABLES Fi nal Result Performing Organization Address [facility] Co de Phone Number [facility] [place] [address] * (ABNORMAL) Albumin Creatinine Ratio, Urine (06/25/2024 8:46 AM INDUSTRIAL HYGIENE ENGINEER) Albumin Ur 150.5 mg/L Comment: Interpretive Data No reference range established. Current interpretive data was last revised 2018. Creatinine Ur 89.5 mg/dL [facility] Comment: Interpretive Data No reference range established. Current interpretive data was last revised 2018. Albumin Creatinine Ratio, Ur 168(H) 1 - 29 mg/g [facility] Urine 06/25/2024 8:46 AM INDUSTRIAL HYGIENE ENGINEER 06/25/2024 9:47 AM INDUSTRIAL HYGIENE ENGINEER us Jeramie Matamoros MD LAB URINE ORDERABLES Final Result Performing Organization Address [facility] Co de Phone Number [facility] [place] [address] * PSA screen (02/15/2024 11:20 AM CDT) PSA-Total 2.55 <=3.90 ng/mL Comment: Interpretive Data AGE SEX REFERENCE INTERVAL 0 minutes-150 years Female None 0 minutes-49 years Male None 50-59 years Male 0-3.90 60-69 years Male 0-5.40 70-79 years Male 0-6.20 80-150 years Male 0-6.20 The Sadie PSA Total assay procedure was used. Results from different manufacturers or methods may not be comparable. Serial testing should be performed using the same method. Current interpretive data last revised 21. Blood 02/15/2024 11:2 0 AM CDT 02/15/2024 7:41 PM CDT Jeramie Matamoros MD LAB BLOOD ORDERABLES Final Result Performing Organization Address City/State/[facility] Phone Number [facility] [address] Department of Laboratories [place], [place] [id number] from Last 3 Months or Most Recently Relevant to Health Maintenance Insurance [facility] H[facility]/PPO Address: [facility] [address] [place] [address] [facility] HMO/PPO Address: [facility] [id number] [place] [id number] WORKERS COMPENSATION GENERIC Advance Directives For more information, please contact: [phone] Documents on File Type Date Recorded Patient Bias Cutter Helper Expl anation Advance Directives and Living Will 04/29/2025 12:23 PM Peter Rivera * LIMITED - No CPR (Latest Code Status on File) Date Activated Date Inactivated Comments 06/12/2025 8:04 AM 06/13/2025 8:07 PM Question Answer Comments Provide aggressive medical m anagement before a full cardiopulmonary arrest occurs. Use antibiotics, IV Fluids, and medical treatment unless specifically selected below: No intubation Discussed with the following attending physician: Per discussion with Dr. Spencer dated 05/26/25 * LIMITED - No CPR Date Activated Date Inactivated Comments 05/26/2025 12:37 PM 06/11/2025 8:24 PM Question Answer Comments Cardio Resuscitation: No Chest Compressions Ventilation: No Intubation * Full Code Date Activated Date Inactivated Comments 05/12/2025 7:29 PM 05/16/2025 9:30 PM * Full Code Date Activated Date Inactivated Comments 04/28/2025 5:07 PM 05/01/2025 8:32 PM * Full Code Date Activated Date Inactivated Comments 03/04/2025 5:46 PM 03/07/2025 5:53 PM Healthcare Agents on File Name Relationship Healthcare Agent Relationshi p Communication Sultana Rivera Sister Health Care Agent Miles Newman Brother Second Alternate Health Care Agent Care Teams Clinical Cytogeneticist Scientist Relationship Specialty Start Date End Date Jeramie Matamoros MD [address] [facility] [address] [place], [place] [id number] PCP - General Family Medicine 02/15/24 Salomon Orosco MD [address] [facility] [address] [place] [address] Radiation Oncologist Radiation Oncology 11/20/24 Sea Ocampo MD [address] [facility] [address] [place] [address] Medical Oncologist/Drug Safety Associate Medical Oncology 11/20/24
--- OUTSIDE RECORDS SUMMARY | 2025-06-17 22:23 | XMS_ITS ---
Author Organization [facility] Address [address] [place] [id number] Care Team Providers Care Staffing Rn Name Role Phone Jeramie Matamoros MD Primary Care Provider [phone] Salomon Orosco MD Unavailable Sea Ocampo MD Unavailable [phone] Active Problems Problem Noted Date Diagnosed Date Hypotension, unspecified hypotension type 2024 Assessment & Plan (06/12/2025 4:36 AM SALES AND SERVICE ADVISOR): Following trial infusion, patient hypotensive, hypoxic and [...] 06/12/2025 Assessment & Plan (06/12/2025 4:36 AM SALES AND SERVICE ADVISOR): Hypoxic following infusion, typically on 1.5L NC. [...] 06/12/2025 Assessment & Plan (06/13/2025 2:46 PM SALES AND SERVICE ADVISOR): Resolved. Following trial infusion, patient hypotensive, hypoxic and possible hallucinations. Monitored for high risk CRS, s/p 1 dose decadron 10mg with improvement. Possible cytokine release syndrome vs delirium. Assessment & Plan (06/12/2025 4:36 AM SALES AND SERVICE ADVISOR): Following trial infusion, patient hypotensive, hypoxic and [...] 06/12/2025 Assessment & Plan (06/13/2025 2:46 PM SALES AND SERVICE ADVISOR): Mild. Ca 11, likely malignancy vs dehydration. -Monitor on BMP -Judicious with fluids given HFmrEF Assessment & Plan (06/12/2025 4:36 AM SALES AND SERVICE ADVISOR): Mild. Ca 11, likely malignancy vs dehydration. -Monitor on BMP -Judicious with fluids given HFmrEF Elevated troponin 06/12/2025 Assessment & Plan (06/12/2025 4:36 AM SALES AND SERVICE ADVISOR): 140s>130s. Low concern for ACS, more likely stress related -Monitor for CP COPD (chronic obstructive pulmonary disease) Assessment & Plan (06/13/2025 2:46 PM SALES AND SERVICE ADVISOR): Home 1.5L NC -Cont Inhalers + Duoneb + Mucinex Assessment & Plan (06/12/2025 4:36 AM SALES AND SERVICE ADVISOR): Hypoxic following infusion, typically on 1.5L NC. [...] 06/12/2025 Assessment & Plan (06/13/2025 2:46 PM SALES AND SERVICE ADVISOR): Paroxysmal, In NSR on admission. - eliquis, metop management per HF Assessment & Plan (06/12/2025 4:36 AM SALES AND SERVICE ADVISOR): In NSR on admission -Cont apixiban -Holding metop Malignant pleural effusion 05/13/2025 Assessment & Plan (06/13/2025 2:46 PM SALES AND SERVICE ADVISOR): S/p L pleurX with drainage. Patient notes [...] prior. Assessment & Plan (06/12/2025 4:36 AM SALES AND SERVICE ADVISOR): Hypoxic following infusion, typically on 1.5L NC. [...] Mucinex Assessment & Plan (05/16/2025 11:51 AM SALES AND SERVICE ADVISOR): Presented with ljgnq-lv-dxnpxdx shortness of breath and increased oxygen requirement. [...] up Assessment & Plan (05/15/2025 6:39 PM SALES AND SERVICE ADVISOR): Presented with wcack-bs-vvffzgh shortness of breath and increased oxygen requirement. [...] up Assessment & Plan (05/14/2025 4:50 PM SALES AND SERVICE ADVISOR): Presented with kevcv-iw-vvukrqw shortness of breath and increased oxygen requirement. [...] WO Assessment & Plan (05/13/2025 5:39 PM SALES AND SERVICE ADVISOR): Presented with ezivd-ob-vjkvztt shortness of breath and increased oxygen requirement. [...] 05/13/2025 Assessment & Plan (05/16/2025 11:51 AM SALES AND SERVICE ADVISOR): Presented with axnsx-sk-evwolgt shortness of breath and increased oxygen requirement. [...] up Assessment & Plan (05/15/2025 6:39 PM SALES AND SERVICE ADVISOR): Presented with jfxtv-ol-lguvzwc shortness of breath and increased oxygen requirement. [...] up Assessment & Plan (05/15/2025 4:41 PM SALES AND SERVICE ADVISOR): The patient is a 59 y.o. male [...] the L humerus. He presented to the [facility] ED 05/12 with shortness of [...] off. Assessment & Plan (05/14/2025 4:50 PM SALES AND SERVICE ADVISOR): Presented with uplik-it-xuljzeo shortness of breath and increased oxygen requirement. [...] WO Assessment & Plan (05/13/2025 5:39 PM SALES AND SERVICE ADVISOR): Presented with ahqqt-hf-jlymyea shortness of breath and increased oxygen requirement. [...] 05/13/2025 Assessment & Plan (06/13/2025 2:46 PM SALES AND SERVICE ADVISOR): TTE 04/2025: EF 43%, with RV dilation. RVSP 25. -Hold metoprolol, losartan, empagliflozin given hypotension on admission, resume at discharge. Assessment & Plan (06/12/2025 4:36 AM SALES AND SERVICE ADVISOR): TTE 04/2025: EF 43%, with RV dilation. RVSP 25. -Hold metoprolol, losartan, empagliflozin given hypotension ON AWAKE COUNSELOR Assessment & Plan (05/16/2025 11:51 AM SALES AND SERVICE ADVISOR): TTE 04/30/25 with EF 43%, RV dilation. Does not appear significantly volume overloaded - continue metop as above - start losartan 25mg, uptitrate as able - further GDMT outpatient, outpatient cardio-onc follow up. Assessment & Plan (05/15/2025 6:39 PM SALES AND SERVICE ADVISOR): TTE 04/30/25 with EF 43%, RV dilation. Does not appear significantly volume overloaded - continue metop as above - start losartan 25mg, uptitrate as able - further GDMT outpatient, outpatient cardio-onc follow up. Assessment & Plan (05/14/2025 4:50 PM SALES AND SERVICE ADVISOR): TTE 04/30/25 with EF 43%, RV dilation. Does not appear significantly volume overloaded - continue metop as above - start losartan, uptitrate as able - further GDMT outpatient, outpatient cardio-onc follow up. Assessment & Plan (05/13/2025 5:39 PM SALES AND SERVICE ADVISOR): TTE 04/30/25 with EF 43%, RV dilation. Does not appear significantly volume overloaded - continue metop as above - start losartan, uptitrate as able - further GDMT outpatient, outpatient cardio-onc follow up. Collapse of left lung 05/12/2025 Assessment & Plan (05/16/2025 11:51 AM SALES AND SERVICE ADVISOR): Presented with ejqox-hp-erobids shortness of breath and increased oxygen requirement. [...] up Assessment & Plan (05/15/2025 6:39 PM SALES AND SERVICE ADVISOR): Presented with fyckw-zo-inloxgn shortness of breath and increased oxygen requirement. [...] up Assessment & Plan (05/14/2025 4:50 PM SALES AND SERVICE ADVISOR): Presented with bmrsj-ts-vemptvp shortness of breath and increased oxygen requirement. [...] WO Assessment & Plan (05/13/2025 5:39 PM SALES AND SERVICE ADVISOR): Presented with cvpst-cb-rkksiob shortness of breath and increased oxygen requirement. [...] stent Assessment & Plan (05/12/2025 9:01 PM SALES AND SERVICE ADVISOR): Presented with jcpyi-yc-ardmdti shortness of breath and increased oxygen requirement. [...] 05/12/2025 Assessment & Plan (05/16/2025 11:51 AM SALES AND SERVICE ADVISOR): Presented with iexxc-wa-jjdkflj shortness of breath and increased oxygen requirement. [...] up Assessment & Plan (05/15/2025 6:39 PM SALES AND SERVICE ADVISOR): Presented with ibiaj-ho-fekuefa shortness of breath and increased oxygen requirement. [...] up Assessment & Plan (05/14/2025 4:50 PM SALES AND SERVICE ADVISOR): Presented with fumna-iy-rkhnhsz shortness of breath and increased oxygen requirement. [...] WO Assessment & Plan (05/13/2025 5:39 PM SALES AND SERVICE ADVISOR): Presented with uctqv-dg-vzylwln shortness of breath and increased oxygen requirement. [...] stent Assessment & Plan (05/12/2025 9:01 PM SALES AND SERVICE ADVISOR): Presented with kafnk-bw-ymhbzfm shortness of breath and increased oxygen requirement. [...] 05/07/2025 Assessment & Plan (05/07/2025 10:00 PM SALES AND SERVICE ADVISOR): Has help/ support at home. On palliative care as well. Has all discharge medications. Denies questions. Medications reconciled. Sinus tachycardia 04/28/2025 Assessment & Plan (05/01/2025 7:32 AM SALES AND SERVICE ADVISOR): Patient presented to the [facility] ED with tachycardia to 170s. [...] MCT Assessment & Plan (04/30/2025 3:01 PM SALES AND SERVICE ADVISOR): Patient presented to the [facility] ED with tachycardia to 170s. [...] time Assessment & Plan (04/30/2025 6:42 AM SALES AND SERVICE ADVISOR): Patient presented to the [facility] ED with tachycardia to 170s. [...] Telemetry Assessment & Plan (04/29/2025 8:10 AM SALES AND SERVICE ADVISOR): Patient presented to the [facility] ED with tachycardia to 170s. [...] 04/28/2025 Assessment & Plan (05/16/2025 11:51 AM SALES AND SERVICE ADVISOR): Similar issue prior admission. This time again [...] placed Assessment & Plan (05/15/2025 6:39 PM SALES AND SERVICE ADVISOR): Similar issue prior admission. This time again [...] up Assessment & Plan (05/14/2025 4:50 PM SALES AND SERVICE ADVISOR): Similar issue prior admission. This time again [...] up Assessment & Plan (05/13/2025 5:39 PM SALES AND SERVICE ADVISOR): Similar issue prior admission. This time again presented with atrial flutter with RVR started on amiodarone boluses and continued on amiodarone infusion, converted to NSR. Cardiology consulted - stop amiodarone infusion - increase metop XL to 50mg BID - Keep on telemetry - Switch from Eliquis to heparin drip for possible procedures - outpatient cardio-onc follow up Assessment & Plan (05/12/2025 9:01 PM SALES AND SERVICE ADVISOR): Patient presented with atrial flutter with RVR started on amiodarone boluses and continued on amiodarone infusion - Continue amiodarone infusion - Keep on telemetry - Continue metoprolol - Switch from Eliquis to heparin drip Assessment & Plan (05/07/2025 10:00 PM SALES AND SERVICE ADVISOR): Rate controlled with metoprolol. On anticoagulation - eliquis. Refills given on both. Assessment & Plan (05/01/2025 7:32 AM SALES AND SERVICE ADVISOR): Patient presented to the [facility] ED with tachycardia to 170s. [...] MCT Assessment & Plan (04/30/2025 3:01 PM SALES AND SERVICE ADVISOR): Patient presented to the [facility] ED with tachycardia to 170s. [...] time Assessment & Plan (04/30/2025 6:42 AM SALES AND SERVICE ADVISOR): Patient presented to the [facility] ED with tachycardia to 170s. [...] Telemetry Assessment & Plan (04/29/2025 8:10 AM SALES AND SERVICE ADVISOR): Patient presented to the [facility] ED with tachycardia to 170s. [...] 04/28/2025 Assessment & Plan (05/01/2025 12:14 PM SALES AND SERVICE ADVISOR): CTPE revealed a long-standing continuous left-sided pleural [...] contamination Assessment & Plan (04/30/2025 3:01 PM SALES AND SERVICE ADVISOR): CTPE revealed a long-standing continuous left-sided pleural effusion with consolidation concerning for possible pneumonia. Patient remains afebrile with mild leukocytosis to 12.7. - Discontinued Vanc/Cefepime inpatient - Started Ceftriaxone 2g Q24H and Flagyl 500 mg BID - 1/2 Blood cultures with MRSE, 1/2 NGTD -> likely contamination - Sputum cultures with oropharyngeal contamination Assessment & Plan (04/30/2025 6:42 AM SALES AND SERVICE ADVISOR): CTPE revealed a long-standing continuous left-sided pleural effusion with consolidation concerning for possible pneumonia. Patient remains afebrile with mild leukocytosis to 12.7. - Status post one time dose of Cefepime/Vanc/ Flagyl in ED - Reordered Cefepime 2g Q8H, Vancomycin 1.250g Q12H - Blood Culture preliminary results -> Gram + Cocci in clusters - Sputum cultures pending Assessment & Plan (04/29/2025 8:10 AM SALES AND SERVICE ADVISOR): CTPE revealed a long-standing continuous left-sided pleural [...] 04/16/2025 Assessment & Plan (06/13/2025 2:46 PM SALES AND SERVICE ADVISOR): TTE 04/2025: EF 43%, with RV dilation. RVSP 25. -Hold metoprolol, losartan, empagliflozin given hypotension on admission, resume at discharge. Assessment & Plan (06/12/2025 4:36 AM SALES AND SERVICE ADVISOR): TTE 04/2025: EF 43%, with RV dilation. RVSP 25. -Hold metoprolol, losartan, empagliflozin given hypotension ON AWAKE COUNSELOR Assessment & Plan (05/16/2025 11:51 AM SALES AND SERVICE ADVISOR): TTE 04/30/25 with EF 43%, RV dilation. Does not appear significantly volume overloaded - continue metop as above - start losartan 25mg, uptitrate as able - further GDMT outpatient, outpatient cardio-onc follow up. Assessment & Plan (05/15/2025 6:39 PM SALES AND SERVICE ADVISOR): TTE 04/30/25 with EF 43%, RV dilation. Does not appear significantly volume overloaded - continue metop as above - start losartan 25mg, uptitrate as able - further GDMT outpatient, outpatient cardio-onc follow up. Assessment & Plan (05/14/2025 4:50 PM SALES AND SERVICE ADVISOR): TTE 04/30/25 with EF 43%, RV dilation. Does not appear significantly volume overloaded - continue metop as above - start losartan, uptitrate as able - further GDMT outpatient, outpatient cardio-onc follow up. Assessment & Plan (05/13/2025 5:39 PM SALES AND SERVICE ADVISOR): TTE 04/30/25 with EF 43%, RV dilation. Does not appear significantly volume overloaded - continue metop as above - start losartan, uptitrate as able - further GDMT outpatient, outpatient cardio-onc follow up. Assessment & Plan (05/12/2025 9:01 PM SALES AND SERVICE ADVISOR): Continue metoprolol 50 mg daily Assessment & Plan (05/01/2025 12:14 PM SALES AND SERVICE ADVISOR): - Holding home Losartan and amlodipine in light of lower BP - Metoprolol XL as above Assessment & Plan (04/30/2025 3:01 PM SALES AND SERVICE ADVISOR): - Holding home Losartan in light of lower BP - Metoprolol tartrate 12.5 mg BID started Assessment & Plan (04/30/2025 6:42 AM SALES AND SERVICE ADVISOR): - Holding home Losartan in light of lower BP - Metoprolol tartrate 12.5 mg BID started Assessment & Plan (04/29/2025 8:10 AM SALES AND SERVICE ADVISOR): - Holding home Losartan in light of lower BP - Metoprolol tartrate 12.5 mg BID started Primary osteoarthritis of both hands 04/16/2025 Hypertriglyceridemia 04/16/2025 Cervical radiculopathy 04/02/2025 Tobacco use disorder, moderate, dependence 04/02 Assessment & Plan (05/01/2025 7:32 AM SALES AND SERVICE ADVISOR): Patient endorses a >40 year history smoking 2.5 ppd. Recently smoking 1 ppd since cancer diagnosis. - Ordered 21 mg Nicotine Patch Q24H Assessment & Plan (04/30/2025 3:01 PM SALES AND SERVICE ADVISOR): Patient endorses a >40 year history smoking 2.5 ppd. Recently smoking 1 ppd since cancer diagnosis. - Ordered 21 mg Nicotine Patch Q24H Assessment & Plan (04/30/2025 6:42 AM SALES AND SERVICE ADVISOR): Patient endorses a >40 year history smoking 2.5 ppd. Recently smoking 1 ppd since cancer diagnosis. - Ordered 21 mg Nicotine Patch Q24H Assessment & Plan (04/28/2025 7:55 PM SALES AND SERVICE ADVISOR): Patient endorses a >40 year history smoking 2.5 ppd. Recently smoking 1 ppd since cancer diagnosis. - Ordered 21 mg Nicotine Patch Q24H Hypercalcemia 03/20/2025 Assessment & Plan (05/16/2025 11:51 AM SALES AND SERVICE ADVISOR): Serum calcium to 11.1 in the setting of known bone Mets, iCA around 6 while admitted and improved somewhat with IV fluids, patient asymptomatic - NS infusion 100 cc/hr - monitor iCa Assessment & Plan (05/15/2025 6:39 PM SALES AND SERVICE ADVISOR): Serum calcium to 11.1 in the setting of known bone Mets, iCA around 6 while admitted and improved somewhat with IV fluids, patient asymptomatic - NS infusion 100 cc/hr - monitor iCa Assessment & Plan (05/14/2025 4:50 PM SALES AND SERVICE ADVISOR): Serum calcium to 11.1 in the setting of known bone Mets - NS infusion 100 cc/hr today - monitor iCa Assessment & Plan (05/13/2025 5:39 PM SALES AND SERVICE ADVISOR): Serum calcium to 11.1 in the setting of known bone Mets - NS infusion 50 cc/hr today - monitor iCa Assessment & Plan (05/13/2025 6:40 AM SALES AND SERVICE ADVISOR): Serum calcium to 11.1 in the setting of known bone Mets - NS infusion 50 cc/hr - Will continue to monitor Malignant neoplasm metastatic to bone 03/20/2025 Assessment & Plan (06/13/2025 2:46 PM SALES AND SERVICE ADVISOR): Follows with Dr. Maya. Metastatic L lung squamous cell (met L humerus, brain, rib, b/l rnal, ?L adrenal) s/p RT + carbo/paclitaxel, pembrolizumab with progression, s/p brain RT, on study AB248 then XB010 (last dose 05/08/25), now on AU007, C1D1 of AU-007 and rhIL-2 (HRPO [id number]) 06/11/25. -Onc consult -Management of possible ICANS/CRS as otherwise noted Assessment & Plan (06/12/2025 4:36 AM SALES AND SERVICE ADVISOR): follows with Dr. 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 Patient has undergone several rounds of chemotherapy, radiotherapy, resection. Despite this patient has had disease progression with mets to brain. Most recently received C1D1 of AU-007 and rhIL-2 (HRPO [id number]) 06/11. -Onc consult -Management of possible ICANS/CRS as otherwise noted Cancer related pain 03/06/2025 Assessment & Plan (06/13/2025 2:46 PM SALES AND SERVICE ADVISOR): -Holding oxycodone + Morphine ER, restart as able Assessment & Plan (06/12/2025 4:36 AM SALES AND SERVICE ADVISOR): -Holding oxycodone + Morphine ER, restart as able Assessment & Plan (05/16/2025 11:51 AM SALES AND SERVICE ADVISOR): - Continue home MS Contin, MSIR and oxycodone Assessment & Plan (05/15/2025 6:39 PM SALES AND SERVICE ADVISOR): - Continue home MS Contin, MSIR and oxycodone Assessment & Plan (05/14/2025 4:50 PM SALES AND SERVICE ADVISOR): - Continue home MS Contin, MSIR and oxycodone Assessment & Plan (05/13/2025 5:39 PM SALES AND SERVICE ADVISOR): - Continue home MS Contin, MSIR and oxycodone Assessment & Plan (05/12/2025 9:01 PM SALES AND SERVICE ADVISOR): Continue home MS Contin, MSIR and oxycodone Assessment & Plan (05/01/2025 7:32 AM SALES AND SERVICE ADVISOR): Patient was diagnosed with Squamous cell carcinoma lung cancer in spring. He has been on an experimental chemotherapy regimen as part of a clinical trial. He was scheduled for another round of chemotherapy this morning, 04/28, when he was found to have tachycardia and was sent to the ED. - Follows with [facility] for cancer management and chemotherapy - Per Palliative care, patient is planning on nerve ablation in future for arm pain - Continue scheduled home Morphine ER 45 mg TID - Continue Oxycodone 30 mg Q4H prn for breakthrough pain - Continue scheduled Tylenol 1g Q6H - Restart home Naloxegol for opiate-related constipation Assessment & Plan (04/30/2025 3:01 PM SALES AND SERVICE ADVISOR): Patient was diagnosed with Squamous cell carcinoma lung cancer in spring. He has been on an experimental chemotherapy regimen as part of a clinical trial. He was scheduled for another round of chemotherapy this morning, 04/28, when he was found to have tachycardia and was sent to the ED. - Follows with [facility] for cancer management and chemotherapy - Per Palliative care, patient is planning on nerve ablation in future for arm pain - Continue scheduled home Morphine ER 45 mg TID - Continue Oxycodone 30 mg Q4H prn for breakthrough pain - Continue scheduled Tylenol 1g Q6H - Restart home Naloxegol for opiate-related constipation Assessment & Plan (04/30/2025 6:42 AM SALES AND SERVICE ADVISOR): Patient was diagnosed with Squamous cell carcinoma lung cancer in spring. He has been on an experimental chemotherapy regimen as part of a clinical trial. He was scheduled for another round of chemotherapy this morning, 04/28, when he was found to have tachycardia and was sent to the ED. - Follows with [facility] for cancer management and chemotherapy - Continue scheduled home Morphine ER 45 mg TID - Continue Oxycodone 30 mg Q4H prn for breakthrough pain - Continue scheduled Tylenol 1g Q6H - Discontinued Dilaudid 1 mg PRN - Restart home Naloxegol for opiate-related constipation Assessment & Plan (04/29/2025 8:10 AM SALES AND SERVICE ADVISOR): Patient was diagnosed with Squamous cell carcinoma lung cancer in spring. He has been on an experimental chemotherapy regimen as part of a clinical trial. He was scheduled for another round of chemotherapy this morning, 04/28, when he was found to have tachycardia and was sent to the ED. - Follows with [facility] for cancer management and chemotherapy - [...] 03/04/2025 Assessment & Plan (06/13/2025 2:46 PM SALES AND SERVICE ADVISOR): Follows with Dr. Maya. Metastatic L lung squamous cell (met L humerus, brain, rib, b/l rnal, ?L adrenal) s/p RT + carbo/paclitaxel, pembrolizumab with progression, s/p brain RT, on study AB248 then XB010 (last dose 05/08/25), now on AU007, C1D1 of AU-007 and rhIL-2 (HRPO [id number]) 06/11/25. -Onc consult -Management of possible ICANS/CRS as otherwise noted Assessment & Plan (06/12/2025 4:36 AM SALES AND SERVICE ADVISOR): follows with Dr. 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 Patient has undergone several rounds of chemotherapy, radiotherapy, resection. Despite this patient has had disease progression with mets to brain. Most recently received C1D1 of AU-007 and rhIL-2 (HRPO [id number]) 06/11. -Onc consult -Management of possible ICANS/CRS as otherwise noted Assessment & Plan (05/16/2025 11:51 AM SALES AND SERVICE ADVISOR): Patient with history of metastatic small cell [...] consulted Assessment & Plan (05/15/2025 6:39 PM SALES AND SERVICE ADVISOR): Patient with history of metastatic small cell [...] consulted Assessment & Plan (05/14/2025 4:50 PM SALES AND SERVICE ADVISOR): Patient with history of metastatic small cell [...] consulted Assessment & Plan (05/13/2025 5:39 PM SALES AND SERVICE ADVISOR): Patient with history of metastatic small cell [...] consulted Assessment & Plan (05/12/2025 9:01 PM SALES AND SERVICE ADVISOR): Patient with history of metastatic small cell [...] month Assessment & Plan (05/01/2025 7:32 AM SALES AND SERVICE ADVISOR): Patient was diagnosed with Squamous cell carcinoma lung cancer in spring. He has been on an experimental chemotherapy regimen as part of a clinical trial. He was scheduled for another round of chemotherapy this morning, 11/3, when he was found to have tachycardia and was sent to the ED. - Follows with [facility] for cancer management and chemotherapy - Per Palliative care, patient is planning on nerve ablation in future for arm pain - Continue scheduled home Morphine ER 45 mg TID - Continue Oxycodone 30 mg Q4H prn for breakthrough pain - Continue scheduled Tylenol 1g Q6H - Restart home Naloxegol for opiate-related constipation Assessment & Plan (04/30/2025 3:01 PM SALES AND SERVICE ADVISOR): Patient was diagnosed with Squamous cell carcinoma lung cancer in spring. He has been on an experimental chemotherapy regimen as part of a clinical trial. He was scheduled for another round of chemotherapy this morning, 04/28, when he was found to have tachycardia and was sent to the ED. - Follows with [facility] for cancer management and chemotherapy - Per Palliative care, patient is planning on nerve ablation in future for arm pain - Continue scheduled home Morphine ER 45 mg TID - Continue Oxycodone 30 mg Q4H prn for breakthrough pain - Continue scheduled Tylenol 1g Q6H - Restart home Naloxegol for opiate-related constipation Assessment & Plan (04/30/2025 6:42 AM SALES AND SERVICE ADVISOR): Patient was diagnosed with Squamous cell carcinoma lung cancer in spring. He has been on an experimental chemotherapy regimen as part of a clinical trial. He was scheduled for another round of chemotherapy this morning, 04/28, when he was found to have tachycardia and was sent to the ED. - Follows with [facility] for cancer management and chemotherapy - Continue scheduled home Morphine ER 45 mg TID - Continue Oxycodone 30 mg Q4H prn for breakthrough pain - Continue scheduled Tylenol 1g Q6H - Discontinued Dilaudid 1 mg PRN - Restart home Naloxegol for opiate-related constipation Assessment & Plan (04/29/2025 8:10 AM SALES AND SERVICE ADVISOR): Patient was diagnosed with Squamous cell carcinoma lung cancer in spring. He has been on an experimental chemotherapy regimen as part of a clinical trial. He was scheduled for another round of chemotherapy this morning, 04/28, when he was found to have tachycardia and was sent to the ED. - Follows with [facility] for cancer management and chemotherapy - Continue [...] 03/05/2024-08/27/2024; s/p surgical excision and curettage of FEDERICO arm 10/04/2024; s/p post op RT to [...] 03/05/2024-08/27/2024; s/p surgical excision and curettage of FEDERICO arm 10/04/2024; s/p post op RT to [...] 03/05/2024-08/27/2024; s/p surgical excision and curettage of FEDER[place] arm 10/04/2024; s/p post op RT to [...] 02/2025 Assessment & Plan (05/16/2025 11:51 AM SALES AND SERVICE ADVISOR): - Trelegy Ellipta on hold while on DuoNebs Assessment & Plan (05/15/2025 6:39 PM SALES AND SERVICE ADVISOR): - Trelegy Ellipta on hold while on DuoNebs Assessment & Plan (05/14/2025 4:50 PM SALES AND SERVICE ADVISOR): - Trelegy Ellipta on hold while on DuoNebs Assessment & Plan (05/13/2025 5:39 PM SALES AND SERVICE ADVISOR): - Trelegy Ellipta on hold while on DuoNebs Assessment & Plan (05/12/2025 9:01 PM SALES AND SERVICE ADVISOR): Putting Trelegy Ellipta on hold while on DuoNebs Assessment & Plan (05/01/2025 7:32 AM SALES AND SERVICE ADVISOR): - Continue home Albuterol - Trelegy Ellipta Assessment & Plan (04/30/2025 3:01 PM SALES AND SERVICE ADVISOR): - Continue home Albuterol - Trelegy Ellipta Assessment & Plan (04/30/2025 6:42 AM SALES AND SERVICE ADVISOR): - Continue home Albuterol - Started Trelegy Ellipta Assessment & Plan (04/29/2025 8:10 AM SALES AND SERVICE ADVISOR): - Continue home Albuterol - Started Trelegy Ellipta Assessment & Plan (03/07/2025 11:24 AM CDT): / Continue Ecljkrlkdag-qukuzohnkgks-dnnkmamghx inhaler / No evidence of exacerbation Assessment & Plan (03/06/2025 2:06 PM CDT): / Continue Hxhacrylqvv-ovkhgigtfzfy-dpsirfzhve inhaler / No evidence of exacerbation Assessment & Plan (03/05/2025 4:38 PM CDT): / Continue Byixqhzzjwt-kuhwkpqqjuhx-nbgjmdjnmq inhaler / No evidence of exacerbation Assessment & Plan (03/04/2025 10:47 PM CDT): Home breztri -> trelegy (formulary alternative). Breathing well on RA, does not feel he is in exacerbation HLD (hyperlipidemia) 03/04/2025 Assessment & Plan (05/01/2025 7:32 AM SALES AND SERVICE ADVISOR): - Atorvastatin 20 mg daily Assessment & Plan (04/30/2025 3:01 PM SALES AND SERVICE ADVISOR): - Atorvastatin 20 mg daily Assessment & Plan (04/30/2025 6:42 AM SALES AND SERVICE ADVISOR): - Atorvastatin 20 mg daily Assessment & Plan (04/28/2025 7:55 PM SALES AND SERVICE ADVISOR): - Atorvastatin 20 mg daily Assessment & Plan (03/07/2025 11:24 AM CDT): / Continue Pravastatin 20 daily Assessment & Plan (03/06/2025 2:06 PM CDT): / Continue Pravastatin 20 daily Assessment & Plan (03/05/2025 3:31 PM CDT): / Continue Pravastatin 20 daily Assessment & Plan (03/04/2025 10:47 PM CDT): Pravastatin 20 daily GERD (gastroesophageal reflux disease) Assessment & Plan (05/01/2025 7:32 AM SALES AND SERVICE ADVISOR): - Pantoprazole 40 mg daily Assessment & Plan (04/30/2025 3:01 PM SALES AND SERVICE ADVISOR): - Pantoprazole 40 mg daily Assessment & Plan (04/30/2025 6:42 AM SALES AND SERVICE ADVISOR): - Pantoprazole 40 mg daily Assessment & Plan (04/28/2025 7:55 PM SALES AND SERVICE ADVISOR): - Pantoprazole 40 mg daily Assessment & [...] 2023 Assessment & Plan (05/01/2025 7:32 AM SALES AND SERVICE ADVISOR): Patient was diagnosed with Squamous cell carcinoma lung cancer in spring. He has been on an experimental chemotherapy regimen as part of a clinical trial. He was scheduled for another round of chemotherapy this morning, 04/28, when he was found to have tachycardia and was sent to the ED. - Follows with [facility] for cancer management and chemotherapy - Per Palliative care, patient is planning on nerve ablation in future for arm pain - Continue scheduled home Morphine ER 45 mg TID - Continue Oxycodone 30 mg Q4H prn for breakthrough pain - Continue scheduled Tylenol 1g Q6H - Restart home Naloxegol for opiate-related constipation Assessment & Plan (04/30/2025 3:01 PM SALES AND SERVICE ADVISOR): Patient was diagnosed with Squamous cell carcinoma lung cancer in spring. He has been on an experimental chemotherapy regimen as part of a clinical trial. He was scheduled for another round of chemotherapy this morning, 04/28, when he was found to have tachycardia and was sent to the ED. - Follows with [facility] for cancer management and chemotherapy - Per Palliative care, patient is planning on nerve ablation in future for arm pain - Continue scheduled home Morphine ER 45 mg TID - Continue Oxycodone 30 mg Q4H prn for breakthrough pain - Continue scheduled Tylenol 1g Q6H - Restart home Naloxegol for opiate-related constipation Assessment & Plan (04/30/2025 6:42 AM SALES AND SERVICE ADVISOR): Patient was diagnosed with Squamous cell carcinoma lung cancer in spring. He has been on an experimental chemotherapy regimen as part of a clinical trial. He was scheduled for another round of chemotherapy this morning, 04/28, when he was found to have tachycardia and was sent to the ED. - Follows with [facility] for cancer management and chemotherapy - Continue scheduled home Morphine ER 45 mg TID - Continue Oxycodone 30 mg Q4H prn for breakthrough pain - Continue scheduled Tylenol 1g Q6H - Discontinued Dilaudid 1 mg PRN - Restart home Naloxegol for opiate-related constipation Assessment & Plan (04/29/2025 8:10 AM SALES AND SERVICE ADVISOR): Patient was diagnosed with Squamous cell carcinoma lung cancer in spring. He has been on an experimental chemotherapy regimen as part of a clinical trial. He was scheduled for another round of chemotherapy this morning, 04/28, when he was found to have tachycardia and was sent to the ED. - Follows with [facility] for cancer management and chemotherapy - [...] Lesion of bone of left shoulder 09/25/2023 Current Treatment and Therapy Plans ??? RSH ??? Thoracic ??? CQ-SV-123- ??? Part 2B ? AU-007 / Aldesleukin* Plan Start Date:06/11/2025 Plan Provider:Sea Ocampo MD Linked Problems Primary cancer of left upper lobe of lung (HCC) Treatment Medications Current Day (Day 1 , Cycle 1 - Planned for 06/11/2025) Next Day (Day 2, Cycle 1 - Planned for 06/12/2025) INV-[facility] (/[id number]) AU-007 IVPB IN 250 mL (QS) (ANTI-LAG-3)INV-[facility] AU-007 (/QJ-[id number])IN V-[facility] rhIL-2 (Proleukin, aldesleukin) (/FA-QY-018-) INV-[facility] AU-007 (/SZ-CY-446-) 699 mg in sodium chloride 0.9% 250 mL IVPBINV-[facility] rhIL-2 (Proleukin, aldesleukin) (/PV-AG-129) subcutaneous injection 11 Million Units No medications scheduled. Hydration Therapy Plan* Plan Start Date:03/04/2025 Plan Provider:Sea Ocampo MD Linked Problems Primary cancer of left upper lobe of lung (HCC) Treatment Medications No medications scheduled. IV Maintenance Therapy Plan* Plan Start Date:06/03/2025 Plan Provider:Sea Ocampo MD Linked Problems Primary cancer of left upper lobe of lung (HCC) Treatment Medications No medications scheduled. Zoledronic Acid - Hypercalcemia* Plan Start Date:06/03/2025 Plan Provider:Sea Ocampo MD Linked Problems Malignant neoplasm metastati c to bone (HCC)Primary cancer of left upper lobe of lung (HCC)Hypercalcemia Treatment Medications No medications scheduled. Past Treatment and Therapy Plans Oncology Chemotherapy Treatment Plan Name Start Date Discontinue Date Treatment Medications Discontinue Reason Plan Provider Cycles [id number] - [facility] - Phase 1 - [id number] - Single Agent Dose Escalation D1Q3W - XB010 025 05/29/2025 INV-[facility] (/XB01 0-) XB010 IVPB in 100 mL (ANTI-LAG-3)INV-[facility] brimonidine 0.2 % (/XB01 0-)INV-[facility] fluorometholone (/XB01 0-) 0.1 %INV-[facility] Refresh Classic Lubricant Eye Drops (/XB01 0-)[facility]V-[facility] XB010 (/XB01 0-101) Progression Sea Tapia rn, MD 2 of 6 cycles started Zoledronic Acid - Hypercalcemia 03/20/20 25 03/20/2025 No medications scheduled. Therapy Complete Sea Tapia rn, MD 1 of 1 cycle completed [id number] - [facility] - Thoracic - [id number] - Dose Escalation Part 1.1C - Q3 Weeks AB248 Monotherapy 5 03/17/2025 INV-[facility] (/AB24 8) AB248 (Etakafusp david) in 100 mL (rounding to the nearest 0.1 mL) (ANTI-LAG-3)INV-[facility] AB248 (Etakafusp david) (/AB24 8-) Progression Sea Tapia rn, MD 4 of 7 cycles started DOCEtaxel 21 Day Cycles - Non-Small Cell Lung 5 12/05/2024 DOCEtaxel (TAXOTERE) Provider Discretion Sea Tapia rn, MD Treatment not started Pembrolizumab / Albumin-bound PACLItaxel (Abraxane) / CARBOplatin 21 Day Cycles then Pembrolizumab 21 Day Cycles - Non-Small Cell Lung 11/07/19 24 10/08/2024 albumin-bound PACLItaxel (ABRAXANE)albumin -bound PACLItaxel (ABRAXANE) 5 mg/mLCARBOplatin (PARAPLATIN)CARBO platin (PARAPLATIN) IVPB in 250 mLdexAMETHasone (DECADRON)pembrol izumab (KEYTRUDA)pembrol izumab (KEYTRUDA) IVPB in 100 mL Progression Sea Tapia rn, MD 12 of 20 cycles started Oncology Supportive Care Therapy Plan Plan Name Start Date Discontinue Date Treatment Medications Discontinue Reason Plan Provider Hydration Therapy Plan 02/20/2024 02/26/2025 No medications scheduled. Orders Sea Ocampo MD Past Radiation Episodes * Radiation Oncology - Radiation Therapy - October 2024Overview* First Treatment Date Last Treatment Date Treatment Site Technique Goal Episod e Provider 11/11/2024 12/09/2024 * Linked Problems Metastatic non-small cell federico ng cancer (HCC) Treatment Courses* Course C3_Brain_202412/02/2024 - 12/09/2024 Treatment Period Fraction Dose Fractions Total Dose Plans Planned SBRT LT BRAIN 12/02/2024 - 12/09/2024 600 5 / 3,000 Reference Points Delivered SBRT LT BRAIN 12/02/2024 - 12/09/2024 3,000 * Course C2_L_Humerus_25 11/11/2024 - 12/09/2024 Treatment Period Fraction Dose Fractions Total Dose Plans Planned Lhumerus_RETX 11/11/2024 - 12/09/2024 400 5 / 2,000 Reference Points Delivered L HUM_RE-TX_2000 11/11/2024 - 12/09/2024 2,000 Radiation Treatments (No Episode) * Course C1_Lt_Humerus_24 12/05/2023 - 11/07/2024 Treatment Period Energy Fraction Dose Fractions Total Dose Plans Planned LT HUMERUS 12/05/2023 - 11/07/2024 400 5 / 2,000 Reference Points Delivered LT HUMERUS_2000 12/05/2023 - 11/07/2024 2,000 Lifetime Dose Tracking * Chemical Lifetime Dose Automatic Entry Manual Entr y Fluoro Time 3.675 minutes 3.675 minutes 0 minutes Air kerma at the reference point (Ka,r) 25.18 mGy 2 5.18 mGy 0 mGy DLP 22,397 mGycm 22,397 mGycm 0 mGycm Resolved Problems Problem Noted Date Diagnosed Date Resolved Date Consolidation of left lower lobe of lung 04/28/2025 05/07/2025 Assessment & Plan (05/01/2025 12:14 PM SALES AND SERVICE ADVISOR): CTPE revealed a long-standing continuous left-sided pleural [...] contamination Assessment & Plan (04/30/2025 3:01 PM SALES AND SERVICE ADVISOR): CTPE revealed a long-standing continuous left-sided pleural effusion with consolidation concerning for possible pneumonia. Patient remains afebrile with mild leukocytosis to 12.7. - Discontinued Vanc/Cefepime inpatient - Started Ceftriaxone 2g Q24H and Flagyl 500 mg BID - 1/2 Blood cultures with MRSE, 1/2 NGTD -> likely contamination - Sputum cultures with oropharyngeal contamination Assessment & Plan (04/30/2025 6:42 AM SALES AND SERVICE ADVISOR): CTPE revealed a long-standing continuous left-sided pleural effusion with consolidation concerning for possible pneumonia. Patient remains afebrile with mild leukocytosis to 12.7. - Status post one time dose of Cefepime/Vanc/ Flagyl in ED - Reordered Cefepime 2g Q8H, Vancomycin 1.250g Q12H - Blood Culture preliminary results -> Gram + Cocci in clusters - Sputum cultures pending Assessment & Plan (04/29/2025 8:10 AM SALES AND SERVICE ADVISOR): CTPE revealed a long-standing continuous left-sided pleural [...] 05/07/2025 Assessment & Plan (05/01/2025 7:32 AM SALES AND SERVICE ADVISOR): - Continue Jardiance 10 mg daily - No need for SSI - POC Glucoses WNL Assessment & Plan (04/30/2025 3:01 PM SALES AND SERVICE ADVISOR): - Continue Jardiance 10 mg daily - No need for SSI - POC Glucoses WNL Assessment & Plan (04/30/2025 6:42 AM SALES AND SERVICE ADVISOR): - Continue Jardiance 10 mg daily - No need for SSI - POC Glucoses WNL Assessment & Plan (04/28/2025 7:55 PM SALES AND SERVICE ADVISOR): - Continue Jardiance 10 mg daily - [...] to establish care has been performed today. Demetrio Dior is not up to date on screening [...]
--- OUTSIDE RECORDS SUMMARY | 2025-06-17 22:23 | XMS_ITS | Encounter Summary ---
Author Organization [facility] Healthcare Address [address] [place] [address] Care Team Providers Care Propeller Mechanic Name Role Phone Jeramie Matamoros MD Primary Care Provider [phone] Salomon Orosco MD Unavailable Sea Ocampo MD Unavailable [phone] Encounter Details Date Type Department Care Team (Late st Contact Info) Description 05/29/2025 Telephone Radiology [address] [place] [address] Majo Phillip, RT Social History Tobacco Use Types Packs/Day Years [...] neighbors? More than three times a week 05/13/2025 How often do you get togethe r with friends or relatives? More than three times a week 05/13/2025 How often do you attend [facility] or tenriism services? Never 05/13/2025 Do you belong to any clubs o r organizations such as episcopal groups, unions, fraternal or athletic groups, or school groups? No 05/13/2025 How often do you attend meet ings of the clubs or organizations you belong to? Never 05/13/2025 Are you , , di vorced, , never , or living with a partner? 05/13/2025 AUDIT-C Answer Date Recorded Q1: How often [...] care, and heating? Not hard at all 05/13/2025 Hunger Vital Sign Answer Date Recorded Within the past 12 months, y ou worried that your food would run out before you got the money to buy more. Never true 05/21/20 25 Within the past 12 months, t he food you bought just didn't last and you didn't have money to get more. Never true 05/21/2025 PRAPARE - Transportation Answer Date Re corded In the past 12 months, has l ack of transportation kept you from medical appointments or from getting medications? No 04/26 In the past 12 months, has l ack of transportation kept you from meetings, work, or from getting things needed for daily living? No 05/13/2025 Housing Stability Vital Sign Answer Nick e Recorded In the last 12 months, was t here a time when you were not able to pay the mortgage or rent on time? No 05/13/2025 In the past 12 months, how m any times have you moved where you were living? 0 05/13/2025 At any time in the past 12 m [facility] [place] were you homeless or living in a half-way (including now)? No 05/13/2025 [facility] Utilities Answer Date Recorded In the past 12 months has th e electric, gas, oil, or water company threatened to shut off services in your home? No 05/13/2025 Personal Safety Answer Date Recorded Have you ever been in or are you currently in a harmful physical or emotional relationship or is someone making you feel afraid or unsafe? Denies 05/21/2025 Sex and Gender Information Value Date Recorded Sex Assigned at Not on file Legal Sex Male 8:01 AM PATROLLER Gender Identity Male 11/15/2023 6:35 PM CDT Sexual Orientation Straight 11/15/2023 6: 35 PM CDT documented as of this encounter Miscellaneous Notes * Telephone Encounter - Majo Phillip RT - 05/29/2025 12:[address] Sea Ocampo is referring patient for an adrenal gland biopsy for clinical trial. They need 4 CORE samples. He has a history of metastatic small cell lung cancer with disease progression, had a CT don on 05-15-2025, is on Eliquis, had a CBC today but no recent coags. OLLER documented in this encounter Plan of Treatment Scheduled Procedures Name Priority Associated Diagnoses Date/Ti me ESOPHAGOGASTRODUODENOSCOPY Open Access Gastric pain documented as of this encounter Visit Diagnoses Not on filedocumented in this encounter Additional Health Concerns Infection Onset Date Last Indicated Resolved Time COVID: Suspected 06/11/2025 06/11/2025 06/12/2025 12:33 AM PATROLLER documented as of this encounter Care Teams Propeller Mechanic Relationship Specialty Start Date End Date Jeramie Matamoros MD [address] [place] [address] PCP - General Family Medicine 02/15/24 Salomon Orosco MD [address] [place] [address] Radiation Oncologist Radiation Oncology 11/20/24 Sea Ocampo MD [address] [place] [address] Medical Oncologist/[facility] Medical On[facility] 11/20/24 documented as of this encounter
--- NOTE | 2025-06-17 22:25 | PC.NURSE ---
Pt attempted to urinate at this time. Pt was unsuccessful at this time and states he will try again later.
--- NOTE | 2025-06-17 23:35 | PC.NURSE ---
Pt attempted to urinate again at this time. Pt was unsuccessful. Pt refusing cath at this time as well.
[2025-06-18] VITALS (34 sets, daily range): BP systolic 108–168; BP diastolic 51–115; PULSE 79–149; RESP 18–39; TEMP 36.4–36.7; O2SAT 93–100
[2025-06-18 00:30] LABS: Uric Acid 3.7 mg/dL (3.5-8.5)
[2025-06-18 00:35] LABS: Influenza A QL RT-PCR Negative (Negative); Influenza B QL RT-PCR Negative (Negative); RSV RNA, RT-PCR Negative (Negative); SARS-CoV-2 RNA PCR Negative (Negative)
[2025-06-18] MEDS: SODIUM CHLORIDE 0.9% IV 1,000 ML 100 ML IV CONT (01:01)
--- NOTE | 2025-06-18 02:37 | ED.GENADULT ---
HPI - General Adult General Chief complaint: Weakness <Getachew Tan MD - Last Filed: 06/18/25 02:41> Stated complaint: AMS / weakness <Getachew Tan MD - Last Filed: 06/18/25 02:41> Time Seen by Provider: 06/17/25 21:36 <Getachew Tan MD - Last Filed: 06/18/25 02:41> History of Present Illness HPI narrative: patient is 59-year-old gentleman who presents emergency department with chief complaint lethargy confusion and possible hyper calcemia patient has history of lung cancer is currently in a study at [place] patient had episode of hypercalcemia with similar symptoms <Getachew Tan MD - Last Filed: 06/18/25 02:41> Related Data Home medications: Home Medications ?Medication ?Instructions ?Recorded ?Confirmed ?Last Taken ?Type apixaban 5 mg tablet (Eliquis) 5 mg PO Q12H 06/18/25 06/18/25 06/17/25 History aspirin 81 mg tablet,delayed 81 mg PO DAILY 06/18/25 06/18/25 06/17/25 History release atorvastatin 20 mg tablet 20 mg PO QPM 06/18/25 06/18/25 06/17/25 History empagliflozin 10 mg tablet 10 mg PO DAILY 06/18/25 06/18/25 06/17/25 History (Jardiance) ergocalciferol (vitamin D2) 1,250 50,000 unit PO WEEKLY 06/18/25 06/18/25 06/17/25 History mcg (50,000 unit) capsule (Vitamin D2) guaifenesin 600 mg tablet, 600 mg PO BID PRN cough 06/18/25 06/18/25 Unknown History extended release 12 hr lidocaine-prilocaine 2.5 %-2.5 % 1 applic topical .COMPLEX 06/18/25 06/18/25 Unknown History topical cream losartan 25 mg tablet 25 mg PO DAILY 06/18/25 06/18/25 Unknown History methocarbamol 500 mg tablet 500 mg PO TID 06/18/25 06/18/25 Unknown History metoprolol succinate 50 mg 50 mg PO Q12H 06/18/25 06/18/25 Unknown History tablet,extended release 24 hr morphine 60 mg tablet,extended 60 mg PO Q12H 06/18/25 06/18/25 Unknown History release naloxegol 12.5 mg tablet (Movantik) 25 mg PO DAILY 06/18/25 06/18/25 Unknown History ondansetron HCl 8 mg tablet 8 mg PO Q8H PRN vomiting 06/18/25 06/18/25 Unknown History oxycodone 30 mg tablet 30 mg PO Q4H PRN pain 06/18/25 06/18/25 Unknown History pantoprazole 40 mg tablet,delayed 40 mg PO DAILY 06/18/25 06/18/25 Unknown History release pregabalin 200 mg capsule 200 mg PO BID 06/18/25 06/18/25 Unknown History prochlorperazine maleate 10 mg 10 mg PO TID PRN nausea and 06/18/25 06/18/25 Unknown History tablet vomiting sennosides 8.6 mg capsule (senna) 17.2 mg PO DAILY 06/18/25 06/18/25 Unknown History <Getachew Tan MD - Last Filed: 06/18/25 02:41> Allergies/adverse reactions: Allergies Allergy/AdvReac Type Severity Reaction Status Date / Time No Known Allergies Allergy Verified 06/17/25 20:35 <Getachew Tan MD - Last Filed: 06/18/25 02:41> Review of Systems Review of Systems: A 10 system review of systems was completed on the patient and is negative except for what is stated in the HPI. Nursing and ancillary documentation was reviewed. 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 <Getachew Tan MD - Last Filed: 06/18/25 02:41> Family History Family History: Family History Grandparent Cerebrovascular accident, Onset Age: 84 Family history of Alzheimer's disease, Onset Age: 80 Family history unknown Mother Family history unknown, Onset Age: 48 <Getachew Tan MD - Last Filed: 06/18/25 02:41> Social History Social History: Social History Smoking status: Current every day smoker Alcohol intake: current Substance use: never Substance use type: does not use Lack of Transportation: No Lack of Food: Never True Current Housing: I Have Housing Concerned About Future Housing: No Difficulty Paying Gas/Electric Bills: No Difficulty Paying for Meds: No Currently Unemployed: No Education: High School Diploma/GED Difficulty w/ Childcare or Family Care: No <Getachew Tan MD - Last Filed: 06/18/25 02:41> Exam Narrative: GENERAL: Well-appearing, well-nourished, and in no acute distress. HEAD: Normocephalic, atraumatic. EYES: PERRLA and EOMI. ENT: Nares clear, no rhinorrhea or epistaxis. Mucous membranes moist. NECK: Supple. CHEST: Clear to auscultation. No respiratory distress. HEART: Regular rate and rhythm. No murmur heard. Normal peripheral pulses. ABDOMEN: Soft, nontender, nondistended, normal active bowel sounds. EXTREMITIES: Normal range of motion wound present in the left upper extremity. No edema. SKIN: Warm, dry, no rash. NEURO: No focal deficits. Alert and oriented x3. PSYCH: Normal mood and affect. <Getachew Tan MD - Last Filed: 06/18/25 02:41> Course Vital Signs Vital signs: Vital Signs Temperature 98.3 F 06/17/25 21:14 Pulse Rate 87 06/17/25 21:14 Respiratory Rate 16 06/17/25 21:14 Blood Pressure 70/46 L 06/17/25 21:14 Pulse Oximetry 83 L 06/17/25 21:14 Oxygen Delivery Room Air 06/17/25 21:14 Temperature 98.1 F 06/18/25 11:53 Pulse Rate 143 H 06/18/25 14:52 Respiratory Rate 20 06/18/25 17:26 Blood Pressure 134/81 06/18/25 17:26 Pulse Oximetry 100 06/18/25 17:26 Oxygen Delivery Nasal Cannula 06/17/25 21:44 Oxygen Flow Rate 3 06/17/25 21:44 <Getachew Tan MD - Last Filed: 06/18/25 02:41> Vital Signs Temperature 98.3 F 06/17/25 21:14 Pulse Rate 87 06/17/25 21:14 Respiratory Rate 16 06/17/25 21:14 Blood Pressure 70/46 L 06/17/25 21:14 Pulse Oximetry 83 L 06/17/25 21:14 Oxygen Delivery Room Air 06/17/25 21:14 Temperature 98.1 F 06/18/25 11:53 Pulse Rate 143 H 06/18/25 14:52 Respiratory Rate 20 06/18/25 17:26 Blood Pressure 134/81 06/18/25 17:26 Pulse Oximetry 100 06/18/25 17:26 Oxygen Delivery Nasal Cannula 06/17/25 21:44 Oxygen Flow Rate 3 06/17/25 21:44 <Stevie Raymundo MD - Last Filed: 06/18/25 18:14> [facility] MDM Narrative Medical decision making narrative: Patient care was signed out to me by the overnight physician with transfer pending. Patient is awaiting transfer to [place] where he receives his oncologic care. Patient did have some increased shortness of breath but this did improve with breathing treatment. Patient also had some subsequent tachycardia. Patient is confirmed DNI DNR. Family states and patient confirms that he does not want to be intubated. ABG was ordered and did show some mild hypercapnia but patient preferred not to do BiPAP. Patient was so restless that he would most likely not tolerate BiPAP. Was communicated with family and patient that if he did not tolerate BiPAP and did not wish to be intubated that his worsening oxygenation could lead to hypercapnia which ultimately to his and the power trust and estates attorney was comfortable and aware of this risk. Patient did get a bed at [place] and was stable at time of transfer. <Stevie Raymundo MD - Last Filed: 06/18/25 18:14> Differential Diagnosis Differential Diagnosis: differential diagnosis includes electrolyte abnormality, hypercalcemia uric acid was 3 by showed a white count urine infectious symptoms the was chest x-ray did review history is opacification of the patient's calcium 0.8 the patient received 2 L of normal saline boluses the case was discussed with the [facility] transfer center and the patient was accepted to [place] although is currently on the wait was <Getachew Tan MD - Last Filed: 06/18/25 02:41> Lab Data Result diagrams: 06/17/25 21:37 06/18/25 07:30 <Getachew Tan MD - Last Filed: 06/18/25 02:41> Labs: Lab Results 06/17/25 06/17/25 06/17/25 Range/Units 21:37 21:59 23:54 WBC 15.0 H (4.5-10.0) K/mm3 RBC 6.01 (4.6-6.20) M/mm3 Hgb 14.1 D (14.0-18.0) g/dL Hct 47.3 (42.0-52.0) % MCV 78.7 L (80-100) fl MCH 23.5 L (26-34) pg MCHC 29.8 L (32-36) g/dl RDW 21.7 H (11.5-14.5) % Plt Count 334 D (150-375) k/mm3 MPV 8.0 (7.4-10.4) fl Immature Gran % (Auto) 0.6 H (0-0.5) % Neut % (Auto) 75.4 H (45.5-73.1) % Lymph % (Auto) 12.2 L (18.3-44.2) % [place] % (Auto) 6.9 (2.6-8.5) % Eos % (Auto) 4.5 H (0-4.4) % Baso % (Auto) 0.4 (0.2-1.2) % Lymph # (Auto) 1.83 (0.9-3.2) K/mm3 [place] # (Auto) 1.0 H (0.1-0.6) K/mm3 Eos # (Auto) 0.7 H (0-0.3) K/mm3 Baso # (Auto) 0.1 (0.0-0.1) K/mm3 Abs Immat Gran (auto) 0.09 H (0.00-0.031) K/mm3 Absolute Neuts (auto) 11.3 H (1.3-6.7) K/mm3 Absolute Nucleated RBC 0.000 (0.0-0.012) K/mm3 Nucleated RBC % 0.0 (0.0-0.2) % Methemoglobin (0-1.5) %THb Sodium 128 L (137-145) mmol/L Potassium 4.7 (3.4-5.0) mmol/L Chloride 94 L (98-107) mmol/L Carbon Dioxide 32 H (22-30) mmol/L Anion Gap 2 L (4-12) mmol/L BUN 16 (9-20) mg/dL Creatinine 0.90 (0.7-1.3) mg/dL Estim Creat Clear Calc 87 ml/min Estimated GFR > 60 (59 - ) Glucose 105 (65-110) mg/dL Lactic Acid 1.4 (0.7-2.0) mmol/L Uric Acid 3.7 (3.5-8.5) mg/dL Calcium 11.8 H (8.4-10.2) mg/dL Magnesium 2.1 (1.6-2.3) mg/dL Total Bilirubin 0.6 (0.2-1.3) mg/dL AST 20 (17-59) U/L ALT 13 (6-50) U/L Alkaline Phosphatase 90 (38-126) U/L NT-Pro-B Natriuret Pep (19.9-100) pg/mL Total Protein 6.5 (6.3-8.2) g/dL Albumin 2.9 L (3.5-5.1) g/dL Procalcitonin 0.1 ng/mL Urine Color (Yellow) Urine Appearance (Clear) Urine pH (5.0-9.0) Ur Specific Hernandez (1.001-1.035) Urine Protein (Negative) mg/dL Urine Glucose (UA) (Negative) mg/dL Urine Ketones (Negative) mg/dL Ur Blood (Man) (Negative) Urine Nitrate (Negative) Urine Bilirubin (Negative) Urine Urobilinogen (<2.0) mg/dL Leukocyte Esterase Rfl (Negative) SAL/UL Urine RBC (0-2) /hpf Urine WBC (0-3) /hpf Ur Squamous Epith Cells (Few) /hpf Urine Bacteria /hpf Urine Casts Influenza A (RT-PCR) Negative (Negative) Influenza B (RT-PCR) Negative (Negative) RSV (RT-PCR) Negative (Negative) SARS-CoV-2 RNA (RT-PCR) Negative (Negative) 06/18/25 06/18/25 06/18/25 Range/Units 05:25 07:30 13:05 WBC (4.5-10.0) K/mm3 RBC (4.6-6.20) M/mm3 Hgb (14.0-18.0) g/dL Hct (42.0-52.0) % MCV (80-100) fl MCH (26-34) pg MCHC (32-36) g/dl RDW (11.5-14.5) % Plt Count (150-375) k/mm3 MPV (7.4-10.4) fl Immature Gran % (Auto) (0-0.5) % Neut % (Auto) (45.5-73.1) % Lymph % (Auto) (18.3-44.2) % [place] % (Auto) (2.6-8.5) % Eos % (Auto) (0-4.4) % Baso % (Auto) (0.2-1.2) % Lymph # (Auto) (0.9-3.2) K/mm3 [place] # (Auto) (0.1-0.6) K/mm3 Eos # (Auto) (0-0.3) K/mm3 Baso # (Auto) (0.0-0.1) K/mm3 Abs Immat Gran (auto) (0.00-0.031) K/mm3 Absolute Neuts (auto) (1.3-6.7) K/mm3 Absolute Nucleated RBC (0.0-0.012) K/mm3 Nucleated RBC % (0.0-0.2) % Methemoglobin 0.0 (0-1.5) %THb Sodium 130 L (137-145) mmol/L Potassium 4.3 (3.4-5.0) mmol/L Chloride 97 L (98-107) mmol/L Carbon Dioxide 31 H (22-30) mmol/L Anion Gap 2 L (4-12) mmol/L BUN 12 (9-20) mg/dL Creatinine 0.71 (0.7-1.3) mg/dL Estim Creat Clear Calc 108 ml/min Estimated GFR > 60 (59 - ) Glucose 95 (65-110) mg/dL Lactic Acid (0.7-2.0) mmol/L Uric Acid (3.5-8.5) mg/dL Calcium 10.9 H (8.4-10.2) mg/dL Magnesium (1.6-2.3) mg/dL Total Bilirubin 0.4 (0.2-1.3) mg/dL AST 28 (17-59) U/L ALT 13 (6-50) U/L Alkaline Phosphatase 78 (38-126) U/L NT-Pro-B Natriuret Pep 204 H (19.9-100) pg/mL Total Protein 6.4 (6.3-8.2) g/dL Albumin 2.8 L (3.5-5.1) g/dL Procalcitonin ng/mL Urine Color Yellow (Yellow) Urine Appearance Clear (Clear) Urine pH 6.0 (5.0-9.0) Ur Specific Hernandez 1.022 (1.001-1.035) Urine Protein Trace (Negative) mg/dL Urine Glucose (UA) 3+ H (Negative) mg/dL Urine Ketones Negative (Negative) mg/dL Ur Blood (Man) Negative (Negative) Urine Nitrate Negative (Negative) Urine Bilirubin Negative (Negative) Urine Urobilinogen 0.2 (<2.0) mg/dL Leukocyte Esterase Rfl Negative (Negative) SAL/UL Urine RBC 0-2 (0-2) /hpf Urine WBC 0-5 (0-3) /hpf Ur Squamous Epith Cells None seen (Few) /hpf Urine Bacteria None seen /hpf Urine Casts 0-2 Influenza A (RT-PCR) (Negative) Influenza B (RT-PCR) (Negative) RSV (RT-PCR) (Negative) SARS-CoV-2 RNA (RT-PCR) (Negative) <Getachew Tan MD - Last Filed: 06/18/25 02:41> Lab Results 06/17/25 06/17/25 06/17/25 Range/Units 21:37 21:59 23:54 WBC 15.0 H (4.5-10.0) K/mm3 RBC 6.01 (4.6-6.20) M/mm3 Hgb 14.1 D (14.0-18.0) g/dL Hct 47.3 (42.0-52.0) % MCV 78.7 L (80-100) fl MCH 23.5 L (26-34) pg MCHC 29.8 L (32-36) g/dl RDW 21.7 H (11.5-14.5) % Plt Count 334 D (150-375) k/mm3 MPV 8.0 (7.4-10.4) fl Immature Gran % (Auto) 0.6 H (0-0.5) % Neut % (Auto) 75.4 H (45.5-73.1) % Lymph % (Auto) 12.2 L (18.3-44.2) % [place] % (Auto) 6.9 (2.6-8.5) % Eos % (Auto) 4.5 H (0-4.4) % Baso % (Auto) 0.4 (0.2-1.2) % Lymph # (Auto) 1.83 (0.9-3.2) K/mm3 [place] # (Auto) 1.0 H (0.1-0.6) K/mm3 Eos # (Auto) 0.7 H (0-0.3) K/mm3 Baso # (Auto) 0.1 (0.0-0.1) K/mm3 Abs Immat Gran (auto) 0.09 H (0.00-0.031) K/mm3 Absolute Neuts (auto) 11.3 H (1.3-6.7) K/mm3 Absolute Nucleated RBC 0.000 (0.0-0.012) K/mm3 Nucleated RBC % 0.0 (0.0-0.2) % Methemoglobin (0-1.5) %THb Sodium 128 L (137-145) mmol/L Potassium 4.7 (3.4-5.0) mmol/L Chloride 94 L (98-107) mmol/L Carbon Dioxide 32 H (22-30) mmol/L Anion Gap 2 L (4-12) mmol/L BUN 16 (9-20) mg/dL Creatinine 0.90 (0.7-1.3) mg/dL Estim Creat Clear Calc 87 ml/min Estimated GFR > 60 (59 - ) Glucose 105 (65-110) mg/dL Lactic Acid 1.4 (0.7-2.0) mmol/L Uric Acid 3.7 (3.5-8.5) mg/dL Calcium 11.8 H (8.4-10.2) mg/dL Magnesium 2.1 (1.6-2.3) mg/dL Total Bilirubin 0.6 (0.2-1.3) mg/dL AST 20 (17-59) U/L ALT 13 (6-50) U/L Alkaline Phosphatase 90 (38-126) U/L NT-Pro-B Natriuret Pep (19.9-100) pg/mL Total Protein 6.5 (6.3-8.2) g/dL Albumin 2.9 L (3.5-5.1) g/dL Procalcitonin 0.1 ng/mL Urine Color (Yellow) Urine Appearance (Clear) Urine pH (5.0-9.0) Ur Specific Hernandez (1.001-1.035) Urine Protein (Negative) mg/dL Urine Glucose (UA) (Negative) mg/dL Urine Ketones (Negative) mg/dL Ur Blood (Man) (Negative) Urine Nitrate (Negative) Urine Bilirubin (Negative) Urine Urobilinogen (<2.0) mg/dL Leukocyte Esterase Rfl (Negative) SAL/UL Urine RBC (0-2) /hpf Urine WBC (0-3) /hpf Ur Squamous Epith Cells (Few) /hpf Urine Bacteria /hpf Urine Casts Influenza A (RT-PCR) Negative (Negative) Influenza B (RT-PCR) Negative (Negative) RSV (RT-PCR) Negative (Negative) SARS-CoV-2 RNA (RT-PCR) Negative (Negative) 06/18/25 06/18/25 06/18/25 Range/Units 05:25 07:30 13:05 WBC (4.5-10.0) K/mm3 RBC (4.6-6.20) M/mm3 Hgb (14.0-18.0) g/dL Hct (42.0-52.0) % MCV (80-100) fl MCH (26-34) pg MCHC (32-36) g/dl RDW (11.5-14.5) % Plt Count (150-375) k/mm3 MPV (7.4-10.4) fl Immature Gran % (Auto) (0-0.5) % Neut % (Auto) (45.5-73.1) % Lymph % (Auto) (18.3-44.2) % [place] % (Auto) (2.6-8.5) % Eos % (Auto) (0-4.4) % Baso % (Auto) (0.2-1.2) % Lymph # (Auto) (0.9-3.2) K/mm3 [place] # (Auto) (0.1-0.6) K/mm3 Eos # (Auto) (0-0.3) K/mm3 Baso # (Auto) (0.0-0.1) K/mm3 Abs Immat Gran (auto) (0.00-0.031) K/mm3 Absolute Neuts (auto) (1.3-6.7) K/mm3 Absolute Nucleated RBC (0.0-0.012) K/mm3 Nucleated RBC % (0.0-0.2) % Methemoglobin 0.0 (0-1.5) %THb Sodium 130 L (137-145) mmol/L Potassium 4.3 (3.4-5.0) mmol/L Chloride 97 L (98-107) mmol/L Carbon Dioxide 31 H (22-30) mmol/L Anion Gap 2 L (4-12) mmol/L BUN 12 (9-20) mg/dL Creatinine 0.71 (0.7-1.3) mg/dL Estim Creat Clear Calc 108 ml/min Estimated GFR > 60 (59 - ) Glucose 95 (65-110) mg/dL Lactic Acid (0.7-2.0) mmol/L Uric Acid (3.5-8.5) mg/dL Calcium 10.9 H (8.4-10.2) mg/dL Magnesium (1.6-2.3) mg/dL Total Bilirubin 0.4 (0.2-1.3) mg/dL AST 28 (17-59) U/L ALT 13 (6-50) U/L Alkaline Phosphatase 78 (38-126) U/L NT-Pro-B Natriuret Pep 204 H (19.9-100) pg/mL Total Protein 6.4 (6.3-8.2) g/dL Albumin 2.8 L (3.5-5.1) g/dL Procalcitonin ng/mL Urine Color Yellow (Yellow) Urine Appearance Clear (Clear) Urine pH 6.0 (5.0-9.0) Ur Specific Hernandez 1.022 (1.001-1.035) Urine Protein Trace (Negative) mg/dL Urine Glucose (UA) 3+ H (Negative) mg/dL Urine Ketones Negative (Negative) mg/dL Ur Blood (Man) Negative (Negative) Urine Nitrate Negative (Negative) Urine Bilirubin Negative (Negative) Urine Urobilinogen 0.2 (<2.0) mg/dL Leukocyte Esterase Rfl Negative (Negative) SAL/UL Urine RBC 0-2 (0-2) /hpf Urine WBC 0-5 (0-3) /hpf Ur Squamous Epith Cells None seen (Few) /hpf Urine Bacteria None seen /hpf Urine Casts 0-2 Influenza A (RT-PCR) (Negative) Influenza B (RT-PCR) (Negative) RSV (RT-PCR) (Negative) SARS-CoV-2 RNA (RT-PCR) (Negative) <Stevie Raymundo MD - Last Filed: 06/18/25 18:14> ABG Data ABG results: 06/18/25 13:05 Puncture Site Right radial ABG pH 7.362 ABG pCO2 49.6 H ABG pO2 68.5 L ABG PO2/FiO2 Ratio 2.14 ABG HCO3 27.5 H ABG O2 Saturation 92.9 L ABG O2 Content 18.2 ABG Base Excess 1.3 A-a Gradient 101.6 Oxyhemoglobin 91.9 Carboxyhemoglobin 2.6 H Reduced Hemoglobin 5.5 H Total Hemoglobin 14.1 O2 Delivery Device Nasal cannula O2 Liters/Min 3.0 FiO2 32 <Getachew Tan MD - Last Filed: 06/18/25 02:41> 06/18/25 13:05 Puncture Site Right radial ABG pH 7.362 ABG pCO2 49.6 H ABG pO2 68.5 L ABG PO2/FiO2 Ratio 2.14 ABG HCO3 27.5 H ABG O2 Saturation 92.9 L ABG O2 Content 18.2 ABG Base Excess 1.3 A-a Gradient 101.6 Oxyhemoglobin 91.9 Carboxyhemoglobin 2.6 H Reduced Hemoglobin 5.5 H Total Hemoglobin 14.1 O2 Delivery Device Nasal cannula O2 Liters/Min 3.0 FiO2 32 <Stevie Raymundo MD - Last Filed: 06/18/25 18:14> Imaging Data Radiologist's impression: ITS Impressions Head CT 06/17/25 22:03 IMPRESSION: 1. 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 Differential diagnosis includes calcified dural based lesion such as dural metastases and hemangiopericytoma. Recommend correlation with MRI with contrast for further assessment. 2: Probable arachnoid cyst right middle cranial fossa anteriorly. Mild mass effect on the temporal lobe. 3: No acute intracranial abnormality. Chest X-Ray 06/17/25 22:09 Impression: 1: Complete opacification left hemithorax. Differential diagnosis includes massive pleural effusion, hemothorax, chylothorax, total lung atelectasis secondary to endobronchial obstruction or extrinsic bronchial compression, extensive pneumonia/consolidation, postpneumonectomy state if there is appropriate clinical history, and large thoracic mass. <Getachew Tan MD - Last Filed: 06/18/25 02:41> ITS Impressions Head CT 06/17/25 22:03 IMPRESSION: 1. 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 Differential diagnosis includes calcified dural based lesion such as dural metastases and hemangiopericytoma. Recommend correlation with MRI with contrast for further assessment. 2: Probable arachnoid cyst right middle cranial fossa anteriorly. Mild mass effect on the temporal lobe. 3: No acute intracranial abnormality. Chest X-Ray 06/17/25 22:09 Impression: 1: Complete opacification left hemithorax. Differential diagnosis includes massive pleural effusion, hemothorax, chylothorax, total lung atelectasis secondary to endobronchial obstruction or extrinsic bronchial compression, extensive pneumonia/consolidation, postpneumonectomy state if there is appropriate clinical history, and large thoracic mass. <Stevie Raymundo MD - Last Filed: 06/18/25 18:14> Discharge Plan Discharge Clinical Impression: Hypercalcemia, Lung cancer <Getachew Tan MD - Last Filed: 06/18/25 02:41> Patient Disposition: Acute Care Hospital <Getachew Tan MD - Last Filed: 06/18/25 02:41> Condition: Critical <Getachew Tan MD - Last Filed: 06/18/25 02:41> Patient Language: Bruneian <Getachew Tan MD - Last Filed: 06/18/25 02:41> Prescriptions: No Action albuterol sulfate 90 mcg/actuation HFA aerosol inhaler 1 inh inhalation Q4H PRN (Reason: shortness of breath or wheezing) Qty: 6.7 0RF alprazolam 0.5 mg tablet 0.5 mg PO QHS PRN (Reason: anxiety) Qty: 14 0RF Eliquis 5 mg tablet 5 mg PO Q12H aspirin 81 mg tablet,delayed release (DR/EC) 81 mg PO DAILY atorvastatin 20 mg tablet 20 mg PO QPM Jardiance 10 mg tablet 10 mg PO DAILY ergocalciferol (vitamin D2) [Vitamin D2] 1,250 mcg (50,000 unit) capsule 50,000 unit PO WEEKLY guaifenesin 600 mg tablet extended release 12hr 600 mg PO BID PRN (Reason: cough) lidocaine-prilocaine 2.5-2.5 % cream 1 applic topical .COMPLEX Rx Instructions: 1 applic topically before port access; losartan 25 mg tablet 25 mg PO DAILY methocarbamol 500 mg tablet 500 mg PO TID metoprolol succinate 50 mg tablet extended release 24 hr 50 mg PO Q12H morphine 60 mg tablet extended release 60 mg PO Q12H Movantik 12.5 mg tablet 25 mg PO DAILY ondansetron HCl 8 mg tablet 8 mg PO Q8H PRN (Reason: vomiting) oxycodone 30 mg tablet 30 mg PO Q4H PRN (Reason: pain) pantoprazole 40 mg tablet,delayed release (DR/EC) 40 mg PO DAILY pregabalin 200 mg capsule 200 mg PO BID prochlorperazine maleate 10 mg tablet 10 mg PO TID PRN (Reason: nausea and vomiting) senna 8.6 mg capsule 17.2 mg PO DAILY amlodipine 5 mg tablet 5 mg PO DAILY Qty: 90 1RF pravastatin 20 mg tablet 20 mg PO DAILY Qty: 90 1RF pravastatin 20 mg tablet 20 mg PO DAILY Qty: 90 0RF Rx Instructions: Last refill until seen. <Getachew Tan MD - Last Filed: 06/18/25 02:41> Follow-up/Referrals: Davin,Jovani Palacios DO [Primary Care Provider, Internal Medicine] <Getachew Tan MD - Last Filed: 06/18/25 02:41> Time of Disposition: 02:41 <Getachew Tan MD - Last Filed: 06/18/25 02:41> 02:41 <Stevie Raymundo MD - Last Filed: 06/18/25 18:14>
--- NOTE | 2025-06-18 03:32 | PC.NURSE ---
Pt placed in hospital bed at this time.
--- NOTE | 2025-06-18 04:42 | PC.NURSE ---
Alice and RN checked with pt to see if he can provide urine sample at this time. Pt states he is not ready at this time. Pt is still refusing catheter.
[2025-06-18 05:38] LABS: Add Urine Microscopic? YES; Appearance Urine Clear (Clear); Glucose Urine UA 3+ mg/dL (Negative); Leukocyte Esterase Ur Negative LEU/UL (Negative); Nitrate Urine Negative (Negative); Non Pathogenic Casts 0-2; Specific Grav Ur 1.022 (1.001-1.035)
--- NOTE | 2025-06-18 05:41 | PC.NURSE ---
MD Tan verbally states pt can have some food at this time.
[2025-06-18 07:53] LABS: Alanine Aminotransferase 13 U/L (6-50); Albumin Level 2.8 g/dL (3.5-5.1); Alkaline Phosphatase 78 U/L (38-126); Anion Gap 2 mmol/L (4-12); Aspartate Amino Transferase 28 U/L (17-59); Bilirubin,Total 0.4 mg/dL (0.2-1.3); Blood Urea Nitrogen 12 mg/dL (9-20); Calcium 10.9 mg/dL (8.4-10.2); Carbon Dioxide 31 mmol/L (22-30); Chloride 97 mmol/L (98-107); Estimated CRCL calculation 108 ml/min; Estimated Glomerular Filt Rate > 60; Glucose 95 mg/dL (65-110); Potassium 4.3 mmol/L (3.4-5.0); Sodium 130 mmol/L (137-145); Total Protein 6.4 g/dL (6.3-8.2)
[2025-06-18] MEDS: ONDANSETRON INJ 4 MG/2 ML VIAL IV PUSH (08:18)
--- NOTE | 2025-06-18 09:21 | PC.NURSE ---
Spoke with [facility] transfer center about patient. updated transfer center and they stated still no bed at this time.
[2025-06-18] MEDS: ALPRAZolam (*CRX) 0.5 MG TABLET PO (11:23)
[2025-06-18] MEDS: IPRATROPIUM 0.5 MG/ALBUTEROL SULFATE 2.5 MG (BASE) AMPUL.NEB 3 ML INHALATION (12:22)
--- NOTE | 2025-06-18 12:53 | PC.NURSE ---
Spoke with POA Francheska and patient is confirmed DNR/DNI. MD padilla at bedside when POA present.
[2025-06-18 13:09] LABS: Alveolar/Arterial O2 Gradient 101.6 mmHg; Carboxyhemoglobin 2.6 % THb (0-2.0); Fractional Inspired Oxygen 32 %; HCO3 ABG 27.5 mEq/l (22.0-26.0); Methemoglobin ABG 0.0 %THb (0-1.5); Oxygen Content ABG 18.2 %vol (16.0-22.0); Oxygen Saturation ABG 92.9 % (95.0-100.0); PCO2 ABG 49.6 mmHg (35.0-45.0); PO2 ABG 68.5 mmHg (80.0-100.0); PO2 FiO2 Ratio Arterial Blood 2.14 %; Reduced Hemoglobin 5.5 %THb (0-5.0)
[2025-06-18 13:11] LABS: Liters per Minute 3.0 LPM; Modified Allen's Test Pass; Site Drawn RIGHT RADIAL
[2025-06-18 14:19] LABS: NT Pro B Type Natriuretic Pept 204 pg/mL (19.9-100)
[2025-06-18] MEDS: HYDROcodone/acetaminophen (*CRX) 10-325 MG TABLET 1 TAB PO (14:52)
[2025-06-18] MEDS: METOPROLOL TARTRATE 50 MG TAB PO (14:52)
--- NOTE | 2025-06-18 15:32 | PC.NURSE ---
JERICA Pritchard is refusing pulse ox at this time. explained to JERICA the purpose of pulse ox and she understands it purpose. informed POAdolfo RN will spot check his oxygen saturation.
--- NOTE | 2025-06-18 16:33 | PC.NURSE ---
report called to RN at [place]. room [id number].
[2025-06-18] MEDS: LORazepam (*CRX) 1 MG TABLET PO (20:30)
[2025-06-19] VITALS (46 sets, daily range): BP systolic 105–179; BP diastolic 72–125; PULSE 77–146; RESP 18–50; TEMP 36.7–37.3; O2SAT 75–100; BMI 22.1
[2025-06-19 00:29] LABS: Alveolar/Arterial O2 Gradient 134.5 mmHg; Fractional Inspired Oxygen 40 %; HCO3 ABG 25.1 mEq/l (22.0-26.0); Oxygen Content ABG 19.0 %vol (16.0-22.0); Oxygen Saturation ABG 94.1 % (95.0-100.0); PCO2 ABG 59.5 mmHg (35.0-45.0); PO2 ABG 82.3 mmHg (80.0-100.0); PO2 FiO2 Ratio Arterial Blood 2.06 %
[2025-06-19 00:33] LABS: Modified Allen's Test Pass; Site Drawn RIGHT RADIAL
[2025-06-19] MEDS: FUROSEMIDE INJ 40 MG/4 ML VIAL IV PUSH ×2 (01:40→08:42)
--- NOTE | 2025-06-19 02:30 | PCRCNOTE ---
ABG delayed due to code blue in ED.
--- NOTE | 2025-06-19 03:05 | PC.NURSE ---
pt pulled off his bipap and would not keep it on. this rn asked dr. maldonado if we could place pt in soft restraints. ok'ed
[2025-06-19 08:56] LABS: Hematocrit 47.2 % (42.0-52.0); Hemoglobin 14.0 g/dL (14.0-18.0); Immature Granulocyte Percent A 0.7 % (0-0.5); Lymphocytes Absolute Auto 0.86 K/mm3 (0.9-3.2); Mean Corpuscular HGB Conc 29.7 g/dl (32-36); Mean Corpuscular Hemoglobin 23.6 pg (26-34); Mean Corpuscular Volume 79.5 fl (80-100); Nucleated Red Blood Cells Absolute Auto 0.000 K/mm3 (0.0-0.012); Nucleated Red Blood Cells Perc 0.0 % (0.0-0.2); Platelet Count Result 315 k/mm3 (150-375); Red Blood Count 5.94 M/mm3 (4.6-6.20); White Blood Count 15.1 K/mm3 (4.5-10.0)
[2025-06-19 09:23] LABS: Alanine Aminotransferase 23 U/L (6-50); Albumin Level 3.2 g/dL (3.5-5.1); Alkaline Phosphatase 92 U/L (38-126); Anion Gap 9 mmol/L (4-12); Aspartate Amino Transferase 44 U/L (17-59); Bilirubin,Total 0.5 mg/dL (0.2-1.3); Blood Urea Nitrogen 17 mg/dL (9-20); Calcium 11.2 mg/dL (8.4-10.2); Carbon Dioxide 30 mmol/L (22-30); Chloride 95 mmol/L (98-107); Estimated CRCL calculation 91 ml/min; Estimated Glomerular Filt Rate > 60; Glucose 101 mg/dL (65-110); Potassium 4.9 mmol/L (3.4-5.0); Sodium 134 mmol/L (137-145); Total Protein 7.1 g/dL (6.3-8.2); Troponin I 1.620 ng/mL (0.000-0.034)
[2025-06-19 09:48] LABS: NT Pro B Type Natriuretic Pept 5070 pg/mL (19.9-100)
--- NOTE | 2025-06-19 10:01 | PCRCNOTE ---
DR VERBALLY COMMUNICATED NOT TO DO ABG ON PATIENT DUE TO COMFORT CARE
[2025-06-19] MEDS: MORPHINE SULFATE (*CRX) 4 MG/ML INJ IV PUSH ×6 (10:05→23:35)
[2025-06-19] MEDS: LORazepam INJ (*CRX) 2 MG/ML VIAL 1 MG IV PUSH (10:05)
--- NOTE | 2025-06-19 11:09 | WPCEDHO ---
ED Hand Off Checklist All vitals saved:y IV Site documented:y All med administrations documented:y Triage Note Triage Note Pt to ed with c/o confusion, 06/17/25 21:14 lethargic, left arm pain. Pt has cancer to left arm. Previously when pt acted this way his calcium was elevated. Pt receives all care at [facility]. Allergies No Known Allergies Allergy (Verified 06/17/25 20:35) Family History (Last Reviewed 06/18/25 @ 02:39 by Getachew Maldonado MD) Grandparent Cerebrovascular accident Family history of Alzheimer's disease Family history unknown Mother Family history unknown Administered/Completed Medications Discontinued Medications Hydrocodone Bitart/Acetaminophen (Hydrocodone/Acetaminophen (*Crx) 10-325 Mg Tablet) 1 tab PO ONCE STA Stop: 06/18/25 14:45 Last Admin: 06/18/25 14:52 Dose: 1 tab Documented By: JONATHAN Albuterol/Ipratropium (Ipratropium 0.5 Mg/Albuterol Sulfate 2.5 Mg (Base) Ampul.Neb 3 Ml) 3 ml INHALATION ONCE STA Stop: 06/18/25 12:03 Last Admin: 06/18/25 12:22 Dose: 3 ml Documented By: MARY Alprazolam (Alprazolam (*Crx) 0.5 Mg Tablet) 0.5 mg PO ONCE STA Stop: 06/18/25 11:21 Last Admin: 06/18/25 11:23 Dose: 0.5 mg Documented By: JONATHAN Furosemide (Furosemide Inj 40 Mg/4 Ml Vial) 40 mg IV PUSH ONCE STA Stop: 06/18/25 21:54 Last Admin: 06/19/25 01:40 Dose: 40 mg Documented By: BENJIE Furosemide (Furosemide Inj 40 Mg/4 Ml Vial) Confirm Administered Dose 40 mg .ROUTE .STK-MED ONE Stop: 06/19/25 01:38 Last Admin: 06/19/25 04:12 Dose: Not Given Documented By: ACO Non-Admin Reason: Duplicate Dose Furosemide (Furosemide Inj 40 Mg/4 Ml Vial) 40 mg IV PUSH ONCE STA Stop: 06/19/25 08:33 Last Admin: 06/19/25 08:42 Dose: 40 mg Documented By: ALVARADO Sodium Chloride (Normal Saline Iv) 1,000 mls @ 999 mls/hr IV CONT .Q1H1M STA Stop: 06/17/25 22:43 Last Infusion: 06/17/25 23:19 Dose: Infused Documented By: Admin: 06/17/25 22:04 Dose: 999 mls/hr Documented By: JOSELO Sodium Chloride (Normal Saline Iv) 1,000 mls @ 999 mls/hr IV CONT .Q1H1M STA Stop: 06/18/25 00:19 Last Infusion: 06/18/25 00:59 Dose: Infused Documented By: Admin: 06/17/25 23:35 Dose: 999 mls/hr Documented By: JOSELO Sodium Chloride (Normal Saline Iv) 1,000 mls @ 100 mls/hr IV CONT .Q10H STA Stop: 06/18/25 09:29 Last Infusion: 06/18/25 11:52 Dose: Infused Documented By: Admin: 06/18/25 01:01 Dose: 100 mls/hr Documented By: JOSELO Lorazepam (Lorazepam (*Crx) 1 Mg Tablet) 1 mg PO ONCE STA Stop: 06/18/25 20:16 Last Admin: 06/18/25 20:30 Dose: 1 mg Documented By: BENJIE Lorazepam (Lorazepam Inj (*Crx) 2 Mg/Ml Vial) 1 mg IV PUSH ONCE ONE Stop: 06/19/25 09:53 Last Admin: 06/19/25 10:05 Dose: 1 mg Documented By: ALVARADO Methylprednisolone Sodium Succinate (Methylprednisolone Sod Succ 125 Mg Vial) 125 mg IV PUSH ONCE STA Stop: 06/18/25 21:50 Last Admin: 06/18/25 21:54 Dose: 125 mg Documented By: ROLDAN Methylprednisolone Sodium Succinate (Methylprednisolone Sod Succ 125 Mg Vial) Confirm Administered Dose 125 mg .ROUTE .STK-MED ONE Stop: 06/18/25 21:51 Last Admin: 06/19/25 04:12 Dose: Not Given Documented By: HOLLIO Non-Admin Reason: Duplicate Dose Metoprolol Tartrate (Metoprolol Tartrate 50 Mg Tab) 50 mg PO ONCE STA Stop: 06/18/25 14:45 Last Admin: 06/18/25 14:52 Dose: 50 mg Documented By: JONATHAN Morphine Sulfate (Morphine Sulfate (*Crx) 4 Mg/Ml Inj) 4 mg IV PUSH ONCE STA Stop: 06/19/25 09:53 Last Admin: 12/25/25 10:05 Dose: 4 mg Documented By: ALVARADO Ondansetron HCl (Ondansetron Inj 4 Mg/2 Ml Vial) 4 mg IV PUSH ONCE STA Stop: 06/18/25 08:16 Last Admin: 06/18/25 08:18 Dose: 4 mg Documented By: JONATHAN Notes 06/19/25 10:01 Respiratory Therapy Note by Eloina Baer DR VERBALLY COMMUNICATED NOT TO DO ABG ON PATIENT DUE TO COMFORT CARE Initialized on 06/19/25 10:01 - END OF NOTE 06/19/25 03:05 (created 06/19/25 03:25) Nurse Note by Nydia Meredith pt pulled off his bipap and would not keep it on. this rn asked dr. maldonado if we could place pt in soft restraints. MD hylton'ed Initialized on 06/19/25 03:25 - END OF NOTE 06/19/25 02:30 Respiratory Therapy Note by Daisha Barker ABG delayed due to code blue in ED. Initialized on 06/19/25 02:30 - END OF NOTE 06/18/25 16:33 Nurse Note by Nydia Meredith report called to RN at [place]. room [id number]. Initialized on 06/18/25 16:33 - END OF NOTE 06/18/25 15:32 Nurse Note by Bonny Acosta JERICA Pritchard is refusing pulse ox at this time. explained to POA the purpose of pulse ox and she understands it purpose. informed POA RN will spot check his oxygen saturation. Initialized on 06/18/25 15:32 - END OF NOTE 06/18/25 12:53 Nurse Note by Bonny Acosta Spoke with JERICA Pritchard and patient is confirmed DNR/DNI. MD padilla at bedside when POA present. Initialized on 06/18/25 12:53 - END OF NOTE 06/18/25 09:21 Nurse Note by Bonny Acosta Spoke with [facility] transfer center about patient. updated transfer center and they stated still no bed at this time. Initialized on 06/18/25 09:21 - END OF NOTE 06/18/25 05:41 Nurse Note by Theresa Mendieta MD verbally states pt can have some food at this time. Initialized on 06/18/25 05:41 - END OF NOTE 06/18/25 04:42 Nurse Note by Theresa Mendieta Tech and RN checked with pt to see if he can provide urine sample at this time. Pt states he is not ready at this time. Pt is still refusing catheter. Initialized on 06/18/25 04:42 - END OF NOTE 06/18/25 03:32 Nurse Note by Theresa Mendieta Pt placed in hospital bed at this time. Initialized on 06/18/25 03:32 - END OF NOTE 06/17/25 23:35 Nurse Note by Theresa Mendieta Pt attempted to urinate again at this time. Pt was unsuccessful. Pt refusing cath at this time as well. Initialized on 06/17/25 23:35 - END OF NOTE 06/17/25 22:25 Nurse Note by Theresa Mendieta Pt attempted to urinate at this time. Pt was unsuccessful at this time and states he will try again later. Initialized on 06/17/25 22:25 - END OF NOTE Interventions/Assessments IV / Saline Lock, Insert Start: 06/17/25 21:13 Freq: Status: Active Protocol: Document 06/17/25 21:40 KRZ (Rec: 06/17/25 21:41 KRZ [id number]) IV Assessment Peripheral Access Right Antecubital IV Catheter Access Initiated IV Insertion Date 06/17/25 IV Insertion Time 21:41 Catheter Gauge 20 IV Insertion 1 Attempts Ultrasound Used for No Placement IV Site Assessment WNL IV Care and WNL Maintenance PA: Cardiovascular Assessment Start: 06/17/25 21:13 Freq: Status: Active Protocol: Document 06/17/25 21:41 KRZ (Rec: 06/17/25 21:43 KRZ [id number]) Cardiovascular Assessment Cardiovascular Dyspnea Symptoms Skin Description Normal Color Heart Sounds Normal Chest Pain Assessment Chest Pain Intensity 0 PA: Neurological Assessment Start: 06/17/25 21:13 Freq: Status: Active Protocol: Document 06/19/25 04:43 ACO (Rec: 06/19/25 04:43 ACO [id number]) Neurological Assessment Level of Awake Consciousness Arousable to Verbal Orientation Disoriented to Person,Disoriented to Place,Disoriented to Time Neurological Confusion Symptoms Patient Unable to Comprehend Comprehension Memory Description Unable to Assess Last Vital Signs Temperature 99.2 F 06/19/25 08:18 Pulse Rate 140 H 06/19/25 11:01 Respiratory Rate 40 H 06/19/25 11:01 Pulse Oximetry 84 L 06/19/25 11:01 Blood Pressure 143/95 H 06/19/25 11:00 Blood Pressure Mean 111 06/19/25 11:00 Oxygen Delivery BiPAP 06/19/25 05:27 Oxygen Flow Rate 3 06/17/25 21:44 Weight 80 kg 06/17/25 21:14 Last Result - Abnormals Only WBC 15.1 K/mm3 (4.5-10.0) H 06/19/25 08:50 MCV 79.5 fl (80-100) L 06/19/25 08:50 MCH 23.6 pg (26-34) L 06/19/25 08:50 MCHC 29.7 g/dl (32-36) L 06/19/25 08:50 RDW 21.3 % (11.5-14.5) H 06/19/25 08:50 Immature Gran % (Auto) 0.7 % (0-0.5) H 06/19/25 08:50 Neut % (Auto) 91.0 % (45.5-73.1) H 06/19/25 08:50 Lymph % (Auto) 5.7 % (18.3-44.2) L 06/19/25 08:50 [place] % (Auto) 2.4 % (2.6-8.5) L 06/19/25 08:50 Eos % (Auto) 4.5 % (0-4.4) H 06/17/25 21:37 Baso % (Auto) 0.1 % (0.2-1.2) L 06/19/25 08:50 Lymph # (Auto) 0.86 K/mm3 (0.9-3.2) L 06/19/25 08:50 [place] # (Auto) 1.0 K/mm3 (0.1-0.6) H 06/17/25 21:37 Eos # (Auto) 0.7 K/mm3 (0-0.3) H 06/17/25 21:37 Abs Immat Gran (auto) 0.11 K/mm3 (0.00-0.031) H 06/19/25 08:50 Absolute Neuts (auto) 13.7 K/mm3 (1.3-6.7) H 06/19/25 08:50 ABG pH 7.243 (7.350-7.450) L* 06/19/25 00:11 ABG pCO2 59.5 mmHg (35.0-45.0) H 06/19/25 00:11 ABG pO2 68.5 mmHg (80.0-100.0) L 06/18/25 13:05 ABG HCO3 27.5 mEq/l (22.0-26.0) H 06/18/25 13:05 ABG O2 Saturation 94.1 % (95.0-100.0) L 06/19/25 00:11 Carboxyhemoglobin 2.6 % THb (0-2.0) H 06/18/25 13:05 Reduced Hemoglobin 5.5 %THb (0-5.0) H 06/18/25 13:05 Sodium 134 mmol/L (137-145) L 06/19/25 08:50 Chloride 95 mmol/L (98-107) L 06/19/25 08:50 Carbon Dioxide 31 mmol/L (22-30) H 06/18/25 07:30 Anion Gap 2 mmol/L (4-12) L 06/18/25 07:30 Calcium 11.2 mg/dL (8.4-10.2) H 06/19/25 08:50 Troponin I 1.620 ng/mL (0.000-0.034) H* 06/19/25 08:50 NT-Pro-B Natriuret Pep 5070 pg/mL (19.9-100) H 06/19/25 08:50 Albumin 3.2 g/dL (3.5-5.1) L 06/19/25 08:50 Urine Glucose (UA) 3+ mg/dL (Negative) H 06/18/25 05:25 Most Recent Suicide Severity Rating Suicide Severity Rating NO RISK INDICATED 06/17/25 21:14
--- NOTE | 2025-06-19 12:32 | PC.NURSE ---
Pts male purewick found to have come off of pts penis, pt was cleaned up and placed in clean dry gown.
--- NOTE | 2025-06-19 12:37 | ADMGEN ---
This patient, Demetrio Dior, was admitted to Medical Room 347-. Patient/family oriented to hospital policies and general routines including ID bracelet, bed and alarms, visiting hours, pain management, procedures, bathroom and other care routines, personal items, smoking policy, room service/diet, and visiting hours. Information on how to activate the Rapid Response Team has been discussed. Patient/Family are encouraged to report perceived risks to care and to ask questions if they do not understand what they are told or what they should do.
--- NOTE | 2025-06-19 12:55 | PM.IMHP2 ---
H&P: HPI History of Present Illness Date/Time: 06/19/25 12:55 Chief Complaint: Confusion, Lethargy Narrative: 59 y/o M with PMH of lung cancer, HTN, and HLD presents here with confusion and lethargy. The patient presented here on 06/17 from home for further evaluation of confusion lethargy, and pain to his left upper extremity. He reported during his initial evaluation that when he has presented similarly previously his calcium has been elevated. He has a past medical history significant for lung cancer for which he is currently being treated at [facility]. During his initial evaluation in emergency department he developed shortness of breath which initially improved with a breathing treatment. However he subsequently developed tachycardia. ED provider discussed intubation with the patient, he elected to be DNI/DNR. ABG showed mild hypercapnia but initially preferred no BiPAP. He was initially to be transferred to [place] for further care. However he continued to have worsening shortness of breath and respiratory acidosis. This prompted the patient to be placed on BiPAP. Despite BiPAP the patient remained altered. His care was discussed with these JERICA Weinberg and his son Demetrio elected to patient comfort care. Transfer to [place] was canceled and the patient was accepted at [facility] for comfort care. Initial VS at presentation: 98.3? F, HR 87, RR 16, 70/46, and 83% on RA. ED workup showed: WBC 15.1, no anemia, this recent ABG showed a pH of 7.243/CO2 59.5, sodium 134, creatinine 0.85 and GFR >60, calcium 1.2, initial troponin 1.62, BNP 5070. Head CT showed course the calcified mass in the left frontal region likely extra-axial most likely calcified meningioma, probable arachnoid cyst right middle cranial fossa anteriorly mild mass effect on the temporal lobe, no acute intracranial abnormality. CXR showed complete opacification left hemithorax. 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 Family History Family History Grandparent Cerebrovascular accident, Onset Age: 84 Family history of Alzheimer's disease, Onset Age: 80 Family history unknown Mother Family history unknown, Onset Age: 48 Social History Social History Smoking status: Current every day smoker Alcohol intake: current Substance use: never Substance use type: does not use Lack of Transportation: No Lack of Food: Never True Current Housing: I Have Housing Concerned About Future Housing: No Difficulty Paying Gas/Electric Bills: No Difficulty Paying for Meds: No Currently Unemployed: No Education: High School Diploma/GED Difficulty w/ Childcare or Family Care: No Meds Home Medications and Allergies Home Medications ?Medication ?Instructions ?Recorded ?Confirmed ?Type albuterol sulfate 90 mcg/actuation 1 inh inhalation Q4H PRN shortness 07/28/23 10/03/23 Rx aerosol inhaler of breath or wheezing #6.7 grams alprazolam 0.5 mg tablet 0.5 mg PO QHS PRN anxiety #14 tabs 10/03/23 10/03/23 Rx amlodipine 5 mg tablet 5 mg PO DAILY #90 tabs 01/29/24 Rx pravastatin 20 mg tablet 20 mg PO DAILY #90 tabs 01/29/24 Rx pravastatin 20 mg tablet 20 mg PO DAILY #90 tabs 04/29/24 Rx apixaban 5 mg tablet (Eliquis) 5 mg PO Q12H 06/18/25 06/18/25 History aspirin 81 mg tablet,delayed 81 mg PO DAILY 06/18/25 06/18/25 History release atorvastatin 20 mg tablet 20 mg PO QPM 06/18/25 06/18/25 History empagliflozin 10 mg tablet 10 mg PO DAILY 06/18/25 06/18/25 History (Jardiance) ergocalciferol (vitamin D2) 1,250 50,000 unit PO WEEKLY 06/18/25 06/18/25 History mcg (50,000 unit) capsule (Vitamin D2) guaifenesin 600 mg tablet, 600 mg PO BID PRN cough 06/18/25 06/18/25 History extended release 12 hr lidocaine-prilocaine 2.5 %-2.5 % 1 applic topical .COMPLEX 06/18/25 06/18/25 History topical cream losartan 25 mg tablet 25 mg PO DAILY 06/18/25 06/18/25 History methocarbamol 500 mg tablet 500 mg PO TID 06/18/25 06/18/25 History metoprolol succinate 50 mg 50 mg PO Q12H 06/18/25 06/18/25 History tablet,extended release 24 hr morphine 60 mg tablet,extended 60 mg PO Q12H 06/18/25 06/18/25 History release naloxegol 12.5 mg tablet (Movantik) 25 mg PO DAILY 06/18/25 06/18/25 History ondansetron HCl 8 mg tablet 8 mg PO Q8H PRN vomiting 06/18/25 06/18/25 History oxycodone 30 mg tablet 30 mg PO Q4H PRN pain 06/18/25 06/18/25 History pantoprazole 40 mg tablet,delayed 40 mg PO DAILY 06/18/25 06/18/25 History release pregabalin 200 mg capsule 200 mg PO BID 06/18/25 06/18/25 History prochlorperazine maleate 10 mg 10 mg PO TID PRN nausea and 06/18/25 06/18/25 History tablet vomiting sennosides 8.6 mg capsule (senna) 17.2 mg PO DAILY 06/18/25 06/18/25 History Allergies Allergy/AdvReac Type Severity Reaction Status Date / Time No Known Allergies Allergy Verified 06/17/25 20:35 Vital Signs Vital Signs - 24 hr 06/18/25 13:15 06/18/25 14:52 06/18/25 17:26 Temperature Pulse Rate 137 H 143 H Respiratory Rate 26 H 20 Blood Pressure 151/94 H 134/81 Pulse Oximetry 100 100 Oxygen Delivery 06/18/25 20:34 06/18/25 22:10 06/18/25 23:57 Temperature Pulse Rate Respiratory Rate 24 H 39 H 38 H Blood Pressure 150/115 H Pulse Oximetry 100 99 100 Oxygen Delivery BiPAP BiPAP 06/19/25 00:01 06/19/25 00:35 06/19/25 02:38 Temperature Pulse Rate 78 Respiratory Rate 18 37 H 21 H Blood Pressure 124/78 Pulse Oximetry 100 100 100 Oxygen Delivery BiPAP BiPAP 06/19/25 02:59 06/19/25 04:42 06/19/25 04:43 Temperature Pulse Rate 77 102 H Respiratory Rate 18 24 H Blood Pressure 124/78 105/72 Pulse Oximetry 100 98 100 Oxygen Delivery BiPAP 06/19/25 04:46 06/19/25 05:27 06/19/25 06:17 Temperature Pulse Rate 110 H Respiratory Rate 42 H 25 H Blood Pressure 105/72 Pulse Oximetry 84 L 96 99 Oxygen Delivery BiPAP 06/19/25 06:55 06/19/25 07:00 06/19/25 07:15 Temperature Pulse Rate Respiratory Rate Blood Pressure Pulse Oximetry 99 99 100 Oxygen Delivery 06/19/25 07:30 06/19/25 07:45 06/19/25 08:00 Temperature Pulse Rate Respiratory Rate Blood Pressure 116/80 Pulse Oximetry 100 100 100 Oxygen Delivery 06/19/25 08:01 06/19/25 08:15 06/19/25 08:18 Temperature 99.2 F Pulse Rate 116 H 116 H Respiratory Rate 22 H 25 H Blood Pressure 122/82 Pulse Oximetry 99 100 99 Oxygen Delivery 06/19/25 08:18 06/19/25 08:30 06/19/25 08:42 Temperature Pulse Rate 116 H 117 H 118 H Respiratory Rate 29 H 25 H 29 H Blood Pressure 122/82 121/77 Pulse Oximetry 100 100 99 Oxygen Delivery 06/19/25 08:45 06/19/25 09:00 06/19/25 09:01 Temperature Pulse Rate 118 H 127 H 124 H Respiratory Rate 22 H 24 H 27 H Blood Pressure 155/102 H Pulse Oximetry 98 97 97 Oxygen Delivery 06/19/25 09:15 06/19/25 09:30 06/19/25 09:31 Temperature Pulse Rate 127 H 129 H 129 H Respiratory Rate 30 H 29 H 35 H Blood Pressure 128/87 Pulse Oximetry 98 98 98 Oxygen Delivery 06/19/25 09:45 06/19/25 10:00 06/19/25 10:05 Temperature Pulse Rate 128 H 142 H 144 H Respiratory Rate 30 H 24 H 50 H Blood Pressure 179/113 H Pulse Oximetry 99 80 L Oxygen Delivery 06/19/25 10:06 06/19/25 10:08 06/19/25 10:15 Temperature Pulse Rate 146 H 144 H 141 H Respiratory Rate 34 H 30 H 49 H Blood Pressure 144/125 H 179/113 H Pulse Oximetry 77 L 75 L 82 L Oxygen Delivery 06/19/25 10:30 06/19/25 10:31 06/19/25 10:45 Temperature Pulse Rate 138 H 139 H 138 H Respiratory Rate 43 H 40 H 36 H Blood Pressure 139/92 H Pulse Oximetry 84 L 85 L 85 L Oxygen Delivery 06/19/25 11:00 06/19/25 11:01 06/19/25 11:15 Temperature Pulse Rate 141 H 140 H 141 H Respiratory Rate 25 H 40 H 33 H Blood Pressure 143/95 H Pulse Oximetry 83 L 84 L 83 L Oxygen Delivery 06/19/25 11:30 06/19/25 11:31 06/19/25 11:45 Temperature Pulse Rate 138 H 138 H 140 H Respiratory Rate 49 H 47 H 39 H Blood Pressure 137/82 Pulse Oximetry 85 L 84 L 85 L Oxygen Delivery 06/19/25 12:00 06/19/25 12:01 06/19/25 12:15 Temperature Pulse Rate 140 H 141 H 145 H Respiratory Rate 29 H 29 H 32 H Blood Pressure 137/88 Pulse Oximetry 84 L 84 L 80 L Oxygen Delivery Exam Const: Other: Mildly uncomfortable, , older appearance than recorded age, mild respiratory distress HENMT: Face/Nose/Sinus: Normal nares present Mouth: Yes dry mucous membranes Eyes: General: appearance normal, both eyes and all related structures Sclera: sclerae normal Pupils: Equal, round and reactive pupils present Resp: Other: Coarse breath sounds bilaterally, coarse upper airway, faint expiratory wheezing, diminished bases bilaterally Cardio: Rate: tachycardic Rhythm: regular rhythm Other: S1-S2 present without murmur, rub, ectopy GI: Other: Abdomen soft, nondistended, nontender. Normoactive bowel sounds in all quadrants. Skin: Other: Melissa pallor. Fungating tumor to the left upper extremity or with scant sanguinous oozing that is controlled with dressing. Neuro: Other: A&O x0, moving bilateral upper extremities to discomfort. Extrem: General: normal exam except as noted Other: No peripheral edema. Fungating tumor to the left bicep. Psych: Other: Poor insight judgment at present. Results Labs Labs: Short CBC 06/19/25 Range/Units 08:50 WBC 15.1 H (4.5-10.0) K/mm3 Hgb 14.0 (14.0-18.0) g/dL Hct 47.2 (42.0-52.0) % Plt Count 315 (150-375) k/mm3 BMP 06/19/25 08:50 Sodium 134 L Potassium 4.9 Chloride 95 L Carbon Dioxide 30 BUN 17 Creatinine 0.85 Glucose 101 Calcium 11.2 H Cardiac Enzymes 06/19/25 Range/Units 08:50 Troponin I 1.620 H* (0.000-0.034) ng/mL Liver Function 06/19/25 Range/Units 08:50 Total Bilirubin 0.5 (0.2-1.3) mg/dL AST 44 (17-59) U/L ALT 23 (6-50) U/L Alkaline Phosphatase 92 (38-126) U/L Albumin 3.2 L (3.5-5.1) g/dL Quality If No VTE Prophylaxis Answer both mechanical and pharmacologic: Reason no mechanical VTE proph: low risk/not indicated Reason no pharmacologic proph: low risk/not indicated Assessment and Plan Assessment and plan (1) Lung cancer: Code(s): C34.90 - Malignant neoplasm of unspecified part of unspecified bronchus or lung Status: Acute Assessment and Plan: The patient presents here with lethargy, confusion, and left upper extremity pain. He has a past medical history significant for lung cancer with metastases, has fungating tumor to the left upper extremity, for which he is treated at [facility]. He was initially set to be transferred to [place] for further care. Found to be hypercalcemic which has previously been an issue for him during his oncology course. However during his course in the emergency department he had continued to decline becoming more short of breath that was accompanied by worsening altered mental status. Initially arrived A&Ox3, now A&Ox0. Patient affirmed he was DNI/DNR. Attempts made with BiPAP to leave the confusion, hypercapnia, and acidosis. However it was unsuccessful. ED provider spoke with patient's POA and son who elected to move the patient to comfort care. Transfer to [place] canceled. - comfort care measures - care coordination for hospice referral - morphine p.r.n., Zofran p.r.n., lorazepam p.r.n., and atropine p.r.n. - home medications discontinued Plan Diet: NPO GI Prophylaxis: n/a DVT Prophylaxis: n/a IV fluids: 1L -> 100 mL/hr, discontinued Lines/Tubes: pIV, R chest wall port Code Status: DNI/DNR, Comfort Care Prior Studies I have reviewed the following patient records and this information was taken into consideration when formulating the assessment and plan.: previous labs, previous ER visits, previous hospitalizations and previous clinic visits Time Spent with Patient Time with patient: less than 45 minutes Hospitalist MIPS Medication Reconciliation I have utilized all available resources to obtain, update and review the patients current medications (includes all prescriptions, OTC, herbals, cannabis, and nutritional supplements).: Yes
[2025-06-19] MEDS: LORazepam INJ (*CRX) 2 MG/ML VIAL IV PUSH ×3 (14:35→18:45)
[2025-06-19] MEDS: MORPHINE SULFATE (*CRX) 4 MG/ML INJ 2 MG IV PUSH ×3 (15:41→17:50)
[2025-06-20] MEDS: LORazepam INJ (*CRX) 2 MG/ML VIAL IV PUSH (01:51)
[2025-06-20] MEDS: MORPHINE SULFATE (*CRX) 4 MG/ML INJ IV PUSH ×2 (02:45→06:00)
[2025-06-20] MEDS: CENTRAL LINE FLUSH 10 ML IV PUSH ×2 (05:58)
[2025-06-20 06:14] VITALS: BP 145/91; PULSE 147; RESP 18; TEMP 36.3; O2SAT 92
[2025-06-20 06:53] VITALS: PULSE 143; RESP 38
[2025-06-20] MEDS: MORPHINE 50 MG/NS 100ML (*CRX) 50 MG/100 ML BAG 8 MG IV CONT (06:53)
--- NOTE | 2025-06-20 07:57 | PM.IMPN2 ---
Subjective Date/time seen: 06/20/25 07:57 Interval history: Patient seen and examined at bedside. Objective Data Vital Signs Vital Signs: Vital Signs - 24 hr 06/19/25 08:00 06/19/25 08:01 06/19/25 08:15 Temperature Pulse Rate 116 H Respiratory Rate 22 H Blood Pressure 116/80 Pulse Oximetry 100 99 100 Oxygen Delivery Oxygen Flow Rate 06/19/25 08:18 06/19/25 08:18 06/19/25 08:30 Temperature 99.2 F Pulse Rate 116 H 116 H 117 H Respiratory Rate 25 H 29 H 25 H Blood Pressure 122/82 122/82 Pulse Oximetry 99 100 100 Oxygen Delivery Oxygen Flow Rate 06/19/25 08:42 06/19/25 08:45 06/19/25 09:00 Temperature Pulse Rate 118 H 118 H 127 H Respiratory Rate 29 H 22 H 24 H Blood Pressure 121/77 Pulse Oximetry 99 98 97 Oxygen Delivery Oxygen Flow Rate 06/19/25 09:01 06/19/25 09:15 06/19/25 09:30 Temperature Pulse Rate 124 H 127 H 129 H Respiratory Rate 27 H 30 H 29 H Blood Pressure 155/102 H 128/87 Pulse Oximetry 97 98 98 Oxygen Delivery Oxygen Flow Rate 06/19/25 09:31 06/19/25 09:45 06/19/25 10:00 Temperature Pulse Rate 129 H 128 H 142 H Respiratory Rate 35 H 30 H 24 H Blood Pressure Pulse Oximetry 98 99 Oxygen Delivery Oxygen Flow Rate 06/19/25 10:05 06/19/25 10:06 06/19/25 10:08 Temperature Pulse Rate 144 H 146 H 144 H Respiratory Rate 50 H 34 H 30 H Blood Pressure 179/113 H 144/125 H 179/113 H Pulse Oximetry 80 L 77 L 75 L Oxygen Delivery Oxygen Flow Rate 06/19/25 10:15 06/19/25 10:30 06/19/25 10:31 Temperature Pulse Rate 141 H 138 H 139 H Respiratory Rate 49 H 43 H 40 H Blood Pressure 139/92 H Pulse Oximetry 82 L 84 L 85 L Oxygen Delivery Oxygen Flow Rate 06/19/25 10:45 06/19/25 11:00 06/19/25 11:01 Temperature Pulse Rate 138 H 141 H 140 H Respiratory Rate 36 H 25 H 40 H Blood Pressure 143/95 H Pulse Oximetry 85 L 83 L 84 L Oxygen Delivery Oxygen Flow Rate 06/19/25 11:15 06/19/25 11:30 06/19/25 11:31 Temperature Pulse Rate 141 H 138 H 138 H Respiratory Rate 33 H 49 H 47 H Blood Pressure 137/82 Pulse Oximetry 83 L 85 L 84 L Oxygen Delivery Oxygen Flow Rate 06/19/25 11:45 06/19/25 12:00 06/19/25 12:01 Temperature Pulse Rate 140 H 140 H 141 H Respiratory Rate 39 H 29 H 29 H Blood Pressure 137/88 Pulse Oximetry 85 L 84 L 84 L Oxygen Delivery Oxygen Flow Rate 06/19/25 12:15 06/19/25 12:50 06/19/25 15:00 Temperature 98.1 F Pulse Rate 145 H 140 H Respiratory Rate 32 H 36 H Blood Pressure 153/89 H Pulse Oximetry 80 L 91 Oxygen Delivery Nasal Cannula Oxygen Flow Rate 2 06/19/25 20:00 06/19/25 20:00 06/20/25 06:14 Temperature 98.8 F 97.4 F L Pulse Rate 140 H 147 H Respiratory Rate 18 18 Blood Pressure 126/87 145/91 H Pulse Oximetry 93 92 Oxygen Delivery Nasal Cannula Oxygen Flow Rate 2 06/20/25 06:53 Temperature Pulse Rate 143 H Respiratory Rate 38 H Blood Pressure Pulse Oximetry Oxygen Delivery Oxygen Flow Rate Intake/Output Intake/Output: Intake & Output 06/17/25 06/18/25 06/19/25 06/20/25 23:59 23:59 23:59 23:59 Intake Total 1000 2000 Output Total 1000 Balance 1000 1000 Meds/Results Medications: Active Medications Generic Name Dose Route Start Last Admin Trade Name Freq PRN Reason Stop Dose Admin Atropine Sulfate 1 - 2 drop 06/19/25 13:25 06/19/25 23:34 Atropine Sulfate 1% Ophth Soln 5 Ml Bottle SUBLINGUAL 2 drop Q4H PRN Administration Secretions Atropine Sulfate 1 drop 06/19/25 23:28 Atropine Sulfate 1% Ophth Soln 5 Ml Bottle SUBLINGUAL Q4H PRN Secretions Heparin Sodium (Beef Lung) 50 units 06/20/25 09:00 Heparin Flush 50 Units/5 Ml Syringe IV PUSH QAM FLORY Heparin Sodium (Beef Lung) 50 units 06/19/25 13:39 Heparin Flush 50 Units/5 Ml Syringe IV PUSH PRN PRN after intermittent infusion Heparin Sodium (Beef Lung) 50 units 06/19/25 13:39 Heparin Flush 50 Units/5 Ml Syringe IV PUSH PRN PRN after blood draws Heparin Sodium (Porcine) 500 units 06/19/25 13:39 Heparin Sodium Lock Flush 500 Units/5 Ml Syringe IV PUSH PRN PRN see comments below Morphine Sulfate 50 mg in 100 mls @ 8 mls/hr 06/20/25 06:15 06/20/25 06:53 IV CONT 4 mg/hr .[id number] FLORY 8 mls/hr 4 MG/HR Administration Lorazepam 2 mg 06/19/25 13:25 06/20/25 01:51 Lorazepam Inj (*Crx) 2 Mg/Ml Vial IV PUSH 2 mg Q2H PRN Administration Anxiety/Comfort Morphine Sulfate 4 mg 06/19/25 20:22 06/20/25 06:00 Morphine Sulfate (*Crx) 4 Mg/Ml Inj IV PUSH 4 mg Q1H PRN Administration COMFORT Ondansetron HCl 4 mg 06/19/25 09:50 Ondansetron Inj 4 Mg/2 Ml Vial IV PUSH Q4H PRN Nausea Sodium Chloride 10 ml 06/19/25 14:00 06/20/25 05:58 Central Line Flush IV PUSH 10 ml Q8HR FLORY Administration Radiology Results: ITS Impressions Head CT 06/17/25 22:03 IMPRESSION: 1. 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 Differential diagnosis includes calcified dural based lesion such as dural metastases and hemangiopericytoma. Recommend correlation with MRI with contrast for further assessment. 2: Probable arachnoid cyst right middle cranial fossa anteriorly. Mild mass effect on the temporal lobe. 3: No acute intracranial abnormality. Chest X-Ray 06/17/25 22:09 Impression: 1: Complete opacification left hemithorax. Differential diagnosis includes massive pleural effusion, hemothorax, chylothorax, total lung atelectasis secondary to endobronchial obstruction or extrinsic bronchial compression, extensive pneumonia/consolidation, postpneumonectomy state if there is appropriate clinical history, and large thoracic mass. Labs Labs: Laboratory Results - last 24 hr 06/19/25 08:50 WBC 15.1 H RBC 5.94 Hgb 14.0 Hct 47.2 MCV 79.5 L MCH 23.6 L MCHC 29.7 L RDW 21.3 H Plt Count 315 MPV 7.9 Immature Gran % (Auto) 0.7 H Neut % (Auto) 91.0 H Lymph % (Auto) 5.7 L [place] % (Auto) 2.4 L Eos % (Auto) 0.1 Baso % (Auto) 0.1 L Lymph # (Auto) 0.86 L [place] # (Auto) 0.4 Eos # (Auto) 0.0 Baso # (Auto) 0.0 Abs Immat Gran (auto) 0.11 H Absolute Neuts (auto) 13.7 H Absolute Nucleated RBC 0.000 Nucleated RBC % 0.0 Sodium 134 L Potassium 4.9 Chloride 95 L Carbon Dioxide 30 Anion Gap 9 BUN 17 Creatinine 0.85 Estim Creat Clear Calc 91 Estimated GFR > 60 Glucose 101 Calcium 11.2 H Total Bilirubin 0.5 AST 44 ALT 23 Alkaline Phosphatase 92 Troponin I 1.620 H* NT-Pro-B Natriuret Pep 5070 H Total Protein 7.1 Albumin 3.2 L
[2025-06-20 08:00] VITALS: BP 102/67; PULSE 137; RESP 46; TEMP 36.3; O2SAT 59
--- NOTE | 2025-06-20 10:52 | PC.NURSE ---
Patient 06/20/25 [id number].
--- NOTE | 2025-06-24 11:59 | P.DN_ITS ---
Discharge Summary Date and Time Date of : 06/20/25 Time of : 08:55 Provider Pronounced By: 2 RNs Name of First RN That Pronounced: Caro RN Name of Second RN That Pronounced: Piper Frances Probable Cause of Probable Cause of : Metastatic lung cancer leading to progressive respiratory failure Summary Hospital Course: The patient presents here with lethargy, confusion, and left upper extremity pain on 06/18. 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 He was initially set to be transferred to [facility] for further oncology care. Found to be hypercalcemic which has previously been an issue for him during his oncology course. However during his course in the emergency department he had continued to decline becoming more short of breath that was accompanied by worsening altered mental status. Initially arrived A&Ox3, now A&Ox0. Patient affirmed he was DNI/DNR prior to decline in mental status. Attempts made with BiPAP to alleviate the confusion, hypercapnia, and acidosis. However it was unsuccessful. ED provider spoke with patient's POA and son who elected to move the patient to comfort care. Transfer to [facility] canceled. Comfort measures were provided most via Morphine, Zofran, Ativan, and Atropine. Ultimately the patient passed due to progressive respiratory failure secondary to metastatic lung cancer. Additional Data Confirmation of as documented by pronouncing clinician: Pupillary Reflex, Palpable Pulses, Response to Stimuli, Heart Tones and Breath Sounds Name of Provider Notified: Kady MEJIA Time Provider Notified: 08:56 Provider Requests Autopsy: No Family Requests Autopsy: No Tractor Trailer Driver Notified: Yes Date [facility] Notified of : 06/20/25 Time [facility] Notified of : 09:25
== END 2025-06-20 08:55 | disposition expired ==
LOC: ANHED 06-19 09:27 → ANH3MEDSUR 06-19 10:37 → ANH3MED 06-19 11:08
PROVIDERS: Emergency Medicine; Admitting Provider Internal Medicine; Emergency Provider Emergency Medicine; PCP Family Medicine; Visit Provider Internal Medicine
DX: J96.90 Respiratory failure, unspecified, unspecified whether with hypoxia or hypercapnia (principal); C34.90 Malignant neoplasm of unspecified part of unspecified bronchus or lung; E83.52 Hypercalcemia; F17.210 Nicotine dependence, cigarettes, uncomplicated; I10 Essential (primary) hypertension; E78.5 Hyperlipidemia, unspecified; C79.9 Secondary malignant neoplasm of unspecified site; Z20.822 Contact with and (suspected) exposure to COVID-19; Z79.01 Long term (current) use of anticoagulants; Z79.84 Long term (current) use of oral hypoglycemic drugs
CPT/HCPCS: 36415; 36600; 70450; 71045; 80053; 81001; 82375; 82805; 83050; 83605; 83735; 83880; 84145; 84484; 84550; 85018; 85025; 87040; 87637; 93005; 94002; 94640; 96361; 96365; 96374; 96375; 96376; 99285; A9270; G0378; J1938; J2060; J2270; J2405; J2919; J7030